=== PATIENT | female | born 1960 | race Caucasian/White ===

== ENCOUNTER 2019-01-28 15:44 | Emergency (ER) | payer BC, SELFPAY ==
[2019-01-28 15:45] VITALS: BP 141/104; PULSE 89; RESP 16; TEMP 36.9; O2SAT 95; BMI 41.5
--- NOTE | 2019-01-28 16:24 | ED.VIS.GEN ---
History of Present Illness Chief Complaint: General Illness Informant: Patient Onset: - 06-20 Context: Gradual Onset Timing: Continuous Quality: chills all over off and on Location: bifrontal headache x several days Current Severity: Moderate Maximum Severity: Moderate Worsened by: light Relieved by: nothing Associated Symptoms: fever to 102 yesterday. abscesses c/w her hidradenitis, worse in R axilla. Narrative: Patient has hidradenitis suppurativa and states that she constantly has an abscess somewhere on her body. Recently she feels she has been experiencing a flareup with sores under both breasts, both groins, but the worst one is in her right axilla. All of them have drained and either are improving or have remained very small, except the right axilla, which has drained purulent discharge about 2 teaspoons yesterday, but still larger than normal and painful. She started having fevers yesterday without any other new symptoms other than a headache. She states she feels achy and stiff all over including her neck but not worse there than any other area. She denies any confusion, neurologic deficits, vision changes, but does have photophobia. The headache was gradual in onset is bifrontal, she denies any recent head injury. - Past Medical History (1) Hidradenitis suppurativa Status: Chronic (2) Depression Status: Chronic Past Medical History - Allergies and Home Meds Allergies/Adverse Reactions: Allergies codeine Adverse Reaction (Verified 01/28/19 15:45) Other Primary Care Physician: Regina Silver NP-C [Primary Care Provider] - 3-5 Days if not improving Lives: Spouse/ Significant Other Smoking Status: Current every day smoker Review of Systems General: Reports: Chills, Fever, Malaise. Denies: Sweats Eyes: Denies: Visual changes - bilaterally, Diplopia ENT: Denies: Rhinorrhea, Sore throat Cardiovascular: Denies: Chest pain, Palpitations Respiratory: Denies: Dyspnea, Cough, Dyspnea on exertion Gastrointestinal: Denies: Abdominal pain, Nausea, Vomiting, Diarrhea, Melena, Hematochezia Genitourinary: Denies: Dysuria, Hematuria, Frequency Musculoskeletal: Reports: Neck pain, Extremity Pain - Axilla. Denies: Back pain Skin: Reports: Abscess. Denies: Rash Neurological: Reports: Headache. Denies: Weakness, Numbness Physical Exam Vital Signs/Narrative: Vital Signs Temp Pulse Resp BP Pulse Ox 01/28/19 15:45 98.5 F 89 16 141/104 H 95 Inital Vital Signs reviewed: Yes General: Well nourished, Well developed, Obese, No Acute Distress Head: Normocephalic, Atraumatic Eyes: Perrl, EOMI ENT: Moist mucous membranes, No rhinorrhea Neck: Supple, Nontender, No lymphadenopathy, No JVD, - - No meningismus. Full range of motion without any apparent difficulty, including chin to chest. Cardiovascular: Regular rate, Regular rhythm, No murmurs. Negative for: Tachycardia Respiratory: No distress, CTA bilaterally, Chest nontender Abdomen: Soft, Nontender, Nondistended, Normal bowel sounds Back: Nontender, Normal Inspection Extremities: No edema, Tenderness - Right axillary abscess, capsule feels to be about 3 cm in diameter with mild erythema overlying, no expressible discharge. Skin: Normal color, No rash, No Trauma, - - Several tender swollen areas, one is on her right upper abdominal wall that is barely present without any erythema. Another is open, nondistended without any current discharge or surrounding erythema, left inframammary. See above for right axillary findings. Neurological: Alert, Oriented x3, Cranial nerves II-XII grossly intact, Normal Strength, Normal Sensation, Normal Gait Psychological: Normal affect, Normal Mood Diagnostic/Tx/Re-eval Laboratory Tests 01/28/19 01/28/19 01/28/19 Range/Units 16:37 16:35 16:35 WBC 6.6 (4.4-11.0) K/mm3 RBC 4.28 (4.2-5.4) M/mm3 Hgb 13.0 (12.0-15.0) g/dL Hct 39.7 (37-47) % MCV 92.8 (81-99) fL MCH 30.4 (27.0-32.0) pg MCHC 32.7 (32-36) g/dL RDW Std Deviation 48.0 H (35.1-43.9) fl RDW Coeff of Jakub 14.1 (11.6-14.6) % Plt Count 213 (150-450) K/mm3 MPV 9.8 (6.2-12.0) fl Immature Gran % (Auto) 0.300 (0.0-0.9) % Neut % (Auto) 58.9 (47-70) % Lymph % (Auto) 25.1 (19-41) % [place] % (Auto) 12.5 H (0-10) % Eos % (Auto) 2.6 (0-5) % Baso % (Auto) 0.6 (0-1) % Absolute Neuts (auto) 3.9 (2.0-7.7) X10^3/uL Absolute Lymphs (auto) 1.66 (0.83-4.51) X10^3/uL Nucleated RBC % 0 (0-5) % Sodium 143 (136-145) mmol/L Potassium 3.8 (3.5-5.1) mmol/L Chloride 109 H (98-107) mmol/L Carbon Dioxide 29.0 (21.0-32.0) mmol/L Anion Gap 5 (5-15) BUN 9 (7-18) mg/dL Creatinine 0.94 (0.55-1.02) mg/dL Estim Creat Clear Calc 58.70 ml/min Est GFR (MDRD) Af Amer 78 (>60) mL/min Est GFR (MDRD) Non-Af 65 (>60) mL/min BUN/Creatinine Ratio 9.5 L (10-20) RATIO Glucose 97 (74-106) mg/dL Lactic Acid 1.1 (0.4-1.9) mmol/L Calcium 8.7 (8.5-10.1) mg/dL Total Bilirubin 0.40 (0.20-1.00) mg/dL AST 24 (15-37) U/L ALT 29 (13-56) U/L Alkaline Phosphatase 80 (45-117) U/L Total Protein 7.5 (6.4-8.2) g/dL Albumin 3.6 (3.2-5.0) g/dL Globulin 3.9 (2.2-4.2) g/dL Albumin/Globulin Ratio 0.9 (0.9-2.4) RATIO - Medical Decision Making Incision and drainage did not yield purulent material, according to the patient that is because she already squeezed everything out but I did deloculated the cavity and irrigated, dressed it with bacitracin, and we lam blood cultures/labs. She has no leukocytosis and her labs are very normal. Given her symptoms, I did give her an empiric dose of vancomycin 15 mg/kg IV, and will send her home on Bactrim. After Toradol her headache is improved as is her photophobia. She does not examine like meningitis and I do not think she needs an LP at this time. We did discuss this and she is in agreement. Certainly her fever could have been from a viral syndrome, which are very prevalent in the area at this time, anecdotally. Since she is well-appearing I do not think she needs to be admitted for IV antibiotics at this time. Discussed reasons to return with the patient and she is comfortable with that plan. Procedures Procedure(s): Simple incision and drainage right axilla abscess. Prepped with isopropanol, locally anesthetized with 2 cc plain 1% lidocaine, followed by central incision with a #11 blade. No purulent discharge was expressible, some minor bleeding occurred. I probed and deloculated with hemostats, and irrigated the cavity with sterile saline, patient tolerated well without complication. ED Disposition - Plan for ED Patient: Disposition: Home or Assisted Living Diagnosis: Hidradenitis suppurativa, Cutaneous abscess of right axilla, Fever Instructions: ABSCESS, Incision and Drainage Prescriptions: Sulfamethoxazole/Trimethoprim [Bactrim Ds Tablet] 1 ea PO BID #20 tab Prescription Printed Referrals: Regina Silver, MICROBIOLOGY TECHNOLOGIST-C [Primary Care Provider] - 3-5 Days if not improving
[2019-01-28] MEDS: Ketorolac 15 MG/ML Vial IV (16:43)
[2019-01-28 16:48] VITALS: BP 138/88; PULSE 74; RESP 19; TEMP 37.2; O2SAT 95
[2019-01-28 16:53] LABS: Absolute Lymphocyte Count 1.66 X10^3/uL (0.83-4.51); Absolute Neutrophil Count 3.9 X10^3/uL (2.0-7.7); Basophil# 0.04 X10^3/uL; Basophil% 0.6 % (0-1); Eosinophil# 0.17 X10^3/uL; Eosinophils% 2.6 % (0-5); Hematocrit 39.7 % (37-47); Lymphocyte # 1.66 X10^3/ul (4.0); Lymphocyte % 25.1 % (19-41); Mean Corp Hgb Conc 32.7 g/dL (32-36); Mean Corpuscular Hgb 30.4 pg (27.0-32.0); Mean Corpuscular Volume 92.8 fL (81-99); Mean Platelet Vol. 9.8 fl (6.2-12.0); Monocyte# 0.83 X10^3/uL; Monocyte% 12.5 % (0-10); NRBC Flagged by Analyzer 0 % (0-5); Neutrophil % 58.9 % (47-70); Platelet Count 213 K/mm3 (150-450); RBC Distribution Width CV 14.1 % (11.6-14.6); Red Blood Count 4.28 M/mm3 (4.2-5.4); White Blood Count 6.6 K/mm3 (4.4-11.0)
[2019-01-28 17:19] LABS: ALB/GLOB Ratio 0.9 RATIO (0.9-2.4); AST(SGOT) 24 U/L (15-37); Alanine Aminotransfer ALT/SGPT 29 U/L (13-56); Albumin, Serum 3.6 g/dL (3.2-5.0); Alkaline Phosphatase 80 U/L (45-117); Anion Gap 5 (5-15); BUN 9 mg/dL (7-18); BUN/Creat Ratio 9.5 RATIO (10-20); Calcium,Total 8.7 mg/dL (8.5-10.1); Chloride 109 mmol/L (98-107); Creatinine, Serum 0.94 mg/dL (0.55-1.02); EST Glomerular Filtration Rate 65 mL/min (>60); Est Glom Filt Rate - Afr Amer 78 mL/min (>60); Globulin 3.9 g/dL (2.2-4.2); Glucose 97 mg/dL (74-106); Potassium 3.8 mmol/L (3.5-5.1); Protein, Total 7.5 g/dL (6.4-8.2); Sodium Level 143 mmol/L (136-145)
[2019-01-28 17:20] LABS: Lactic Acid 1.1 mmol/L (0.4-1.9)
[2019-01-28 19:30] VITALS: PULSE 78; RESP 18; O2SAT 98
== END 2019-01-28 19:32 | disposition home or self-care (01) ==
PROVIDERS: Emergency Provider Emergency Medicine; Family Provider Nurse Practitioner Family; PCP Nurse Practitioner Family
DX: L02.411 Cutaneous abscess of right axilla (principal); L73.2 Hidradenitis suppurativa; R51 Headache; H53.149 Visual discomfort, unspecified; R50.9 Fever, unspecified; E66.9 Obesity, unspecified; F32.9 Major depressive disorder, single episode, unspecified; Z79.899 Other long term (current) drug therapy; F17.200 Nicotine dependence, unspecified, uncomplicated
CPT/HCPCS: 10060; 36415; 80053; 83605; 85025; 87040; 87086; 87088; 96365; 96366; 96375; 99284; J7040; A4216

== ENCOUNTER → 2019-10-17 14:19 | Outpatient (CLI) | payer BC, SELFPAY ==
[2019-10-17 15:11] LABS: Uric Acid 5.2 mg/dL (2.6-6.0)
== END ==
PROVIDERS: Referring Provider Nurse Practitioner Family; Visit Provider Nurse Practitioner Family
DX: M79.674 Pain in right toe(s) (principal)
CPT/HCPCS: 36415; 84550

== ENCOUNTER 2020-07-09 14:06 | Emergency (ER) | payer BC, SELFPAY ==
[2020-07-09 14:07] VITALS: BP 164/66; PULSE 80; RESP 16; TEMP 37.1; O2SAT 98; BMI 45.0
--- NOTE | 2020-07-09 14:16 | EDS_ITS ---
HPI History of Present Illness Chief Complaint: Lower Extremity Injury Detail of Chief Complaint: Fall with injury to left knee Informant: patient Narrative Narrative: Patient presents to the emergency department with an injury to her left knee. Patient presents via EMS. Patient states that she was on her deck trying to remove some cushions before the rain came and she caught her shoe on a broken piece of decking causing her to fall directly onto her left knee. Patient denies any other injuries. She was able to get her hands out in front of her face before she had the table with her face and head. Patient unable to bear weight afterwards. [facility] Medical History (Updated 07/09/20 @ 14:[address] Mercedes Wheatley, DO) [place] disease GERD (gastroesophageal reflux disease) Hyperlipemia Hypertension Home Medications albuterol sulfate 2 inhaler INHALATION PRN PRN 04/04/16 [History Last Taken Unknown] citalopram 20 mg PO DAILY 04/04/16 [History Last Taken Unknown] lisinopril 20 mg PO DAILY 01/28/19 [History Last Taken Unknown] omeprazole 20 mg PO DAILY 01/28/19 [History Last Taken Unknown] pravastatin 20 mg PO DAILY 01/28/19 [History Last Taken Unknown] sulfamethoxazole-trimethoprim 1 ea PO BID #20 tab 01/28/19 [Rx Last Taken Unknown] allopurinol 50 mg PO DAILY 07/09/20 [History Last Taken Unknown] hydrocodone-acetaminophen 1 tab PO Q4H PRN PRN 2 Days #10 tablet 07/09/20 [Rx Last Taken Unknown] Allergy/AdvReac Type Severity Reaction Status Date / Time codeine AdvReac Other Verified 07/09/20 14:10 Surgical History (Updated 07/09/20 @ 14:11 by Rossy Dahl) Hx of appendectomy Hx of hysterectomy Social History (System 01/02/20 @ 10:22 by Jag Duggan) Smoking Status: Current every day smoker tobacco type: cigarettes ROS ROS ED Constitutional Constitutional ED: Reports systems reviewed and no addt'l complaints, except as documented; Denies body ache(s), change in weight or chills Eyes Eyes: Denies acute decrease in peripheral vision, change in vision, double vision or loss of vision ENT ENT ED: Reports none; Denies ear pain, lip swelling, loss taste/smell, neck pain, otalgia or sore throat Cardiovascular Cardiovascular: Reports none; Denies abdominal pain, chest pain with activity, leg edema, lightheadedness, palpitations, rapid heart rate or syncope Respiratory/Chest Respiratory/Chest: Reports none; Denies change in mental status, dry cough, dyspnea, hemoptysis, shortness of breath at rest or shortness of breath with exertion Gastrointestinal Gastrointestinal: Reports none; Denies abdominal pain, change in stool character, diarrhea, hematemesis, hematochezia, melena, rectal bleeding or vomiting Genitourinary Genitourinary ED: Reports none; Denies abdominal discomfort, anuria, dysuria, genital pain or polyuria Musculoskeletal Musculoskeletal: Reports none and other Details: Injury to left knee ; Denies arthralgias, back pain, difficulty walking, extremity pain, muscle weakness or myalgias Integumentary Reports none; Denies abscess or rash Neurologic Neurologic: Reports none; Denies abnormal gait, confusion, focal weakness, frequent falls, headache(s), loss of vision, numbness, paresthesias, radicular pain, vertigo or weakness Psychiatric Psychiatric: Reports systems reviewed and no addt'l complaints, except as documented and none; Denies behavioral changes, confusion, difficulty concentrating, hallucinations, suicidal ideation, tactile hallucinations or visual hallucinations Endocrine Endocrinology: Denies none, cold intolerance, excessive sweating, fatigue or heat intolerance Hematologic/Lymphatic Hematologic/Lymphatic: Reports none; Denies anemia, easy bleeding or easy bruising Allergic/Immunologic Allergic/Immunologic ED: Denies as per HPI, none, lip swelling, mouth swelling, throat swelling, tongue swelling or hives EXAM Physical Exam Const Vital Signs: 07/09/20 14:07 Temperature 98.8 F Temperature Source Oral Pulse Rate 80 Respiratory Rate 16 Blood Pressure 164/66 H Blood Pressure Mean 98 Pulse Ox 98 Oxygen Delivery Method Room Air Positive well nourished and well developed General Appearance ED: well developed and NAD HEENT Reports TM's clear and moist mucous membranes normocephalic and atraumatic; Negative for trauma or tenderness Tympanic Membrane ED: Yes TM's clear Eyes PERRL and EOMs intact bilaterally General Eye ED: Negative for pale conjunctiva or scleral icterus Neck no lymphadenopathy, supple and no JVD General: Negative for tenderness Chest Wall inspection of chest normal and palpation of chest normal Chest: Negative for tenderness Resp normal respiratory effort and clear to auscultation bilaterally Effort and Inspection: Negative for respiratory distress or pain with movement Auscultation: Negative for rhonchi, wheezes or diminished lung sounds Cardio regular rate, regular rhythm, S1 normal heart sound, S2 normal heart sound and no murmurs Peripheral Pulses: pulses 2+ throughout GI normal to inspection, nondistended, normoactive bowel sounds, soft to palpation, non-tender, non-distended and no masses Back/Spine no CVA tenderness and no thoracic nor lumbar tenderness Extremity Extremity Narrative: Left knee-patient has diffuse tenderness about the patella and medial lateral joint line. She does not want to move the knee in flexion extension although she is able to slightly flex. She was able to lift the leg up off the inflatable splint while we removed it. She does not allow for ligamentous exam. No broken skin noted. She does have soft tissue swelling noted about the patella. She is neurovascular intact distally. Patient has normal pulses dorsal pedal and posterior tibial as well as popliteal. General Extremety ED: Yes edema General Extremity: edema Neuro oriented x3, CN's II-XII intact bilaterally, no sensory deficits noted and gait normal Sensorium / Orientation: awake, alert, oriented to person, oriented to place and oriented to time Motor Exam: strength 5/5 throughout and strength abnormal Psych mental status grossly normal Skin no rashes or lesions noted and no wounds MDM MDM MDM Narrative Medical decision making narrative: Patient will be given crutches and a knee immobilizer. Patient advised to follow-up with primary care physician in 5 to 7 days. She is given a prescription for Inglis for pain. Radiography Diagnostic Testing: Radiology Impression Knee X-Ray 07/09/20 14:31 IMPRESSION: Prepatellar soft tissue swelling. Electronically Signed: Brooks Montez MD at 14:48 EDT , Service support , 4 views x-rays of the left knee obtained interpreted by myself as no acute fractures and only some mild soft tissue swelling anterior to patella. Radiology was in agreement. Discharge Plan Triage Chief Complaint: Lower Extremity Injury ED Provider: Mercedes Wheatley Dx/Rx/DC Orders Clinical Impression: Contusion of knee, left Instructions: ED Contusion, Lower Extremity, ED Knee Sprain Prescriptions: New hydrocodone-acetaminophen [hydrocodone-acetaminophen] 1 TABLET tablet 1 tab PO Q4H PRN PRN (Reason: Pain) 2 Days Qty: 10 RF: 0 No Action albuterol sulfate 2.5 MG/3 ML solution for nebulization 2 inhaler inhalation PRN PRN (Reason: Sob &/Or Wheezing) RF: 0 citalopram 40 MG tablet 20 mg PO DAILY RF: 0 lisinopril 20 tablet 20 mg PO DAILY RF: 0 omeprazole 20 capsule,delayed release(DR/EC) 20 mg PO DAILY RF: 0 pravastatin 20 tablet 20 mg PO DAILY RF: 0 sulfamethoxazole-trimethoprim 1 EACH tablet 1 ea PO BID Qty: 20 RF: 0 allopurinol 100 mg Tablet 50 mg PO DAILY RF: 0 Primary Care Provider: [facility] Jenny Lackey Referrals: [facility] Jenny Lackey [Primary Care Provider] - 5-7 Days Disposition Disposition: Home, self care
--- NOTE | 2020-07-09 14:31 | RAD_ITS ---
STUDY: X-RAY - LEFT KNEE REASON FOR EXAM: Female, 60 years old. Knee injury TECHNIQUE: 4 view(s) of the knee. COMPARISON: None. FINDINGS: Normal visualized distal femur. Normal visualized proximal tibia and fibula. Normal proximal tibiofibular articulation. Normal medial femorotibial compartment. Normal lateral femorotibial compartment. Normal patellofemoral articulation. Prepatellar soft tissue swelling. RAD/Knee 4 or More Views IMPRESSION: Prepatellar soft tissue swelling. Electronically Signed: Brooks Montez MD at 14:48 EDT , Service support ,
[2020-07-09] MEDS: HYDROcodone Bitartrate/Apap 5/325 Tablet PO (15:08)
== END 2020-07-09 15:23 | disposition home or self-care (01) ==
PROVIDERS: Emergency Provider Emergency Medicine
DX: S80.02XA Contusion of left knee, initial encounter (principal); W19.XXXA Unspecified fall, initial encounter; Y93.9 Activity, unspecified; Y92.9 Unspecified place or not applicable; I10 Essential (primary) hypertension; E78.5 Hyperlipidemia, unspecified; K21.9 Gastro-esophageal reflux disease without esophagitis; E88.89 Other specified metabolic disorders; Z79.899 Other long term (current) drug therapy; F17.210 Nicotine dependence, cigarettes, uncomplicated
CPT/HCPCS: 73564; 99285

== ENCOUNTER → 2020-07-17 07:18 | Outpatient (CLI) | payer BC, SELFPAY ==
[2020-07-09 14:07] VITALS: BMI 45.0
--- NOTE | 2020-07-17 16:37 | BI_ITS ---
MAMMOGRAPHY - BILATERAL SCREENING REASON FOR EXAM: Female, 60 years old. Routine annual screening examination. PERTINENT HISTORY: Non-contributory. TECHNIQUE: Digital bilateral breast lena (3D mammographic acquisition) in the CC and MLO projections. 2-D mediolateral oblique (MLO) and craniocaudad (CC) views of both breasts were obtained. CAD: Full Field Digital Mammography with Computer Added Detection was performed. COMPARISON: No comparison mammograms available at this time. If any prior films become available, an addendum to this report can be generated. FINDINGS: Breast Composition: There are scattered areas of fibroglandular density. There are no dominant masses or suspicious calcifications. There is a 1.1 cm x 0.5 cm nodular density in the upper central portion of the breast at the 12 o''clock position on the left side. A central fatty notch is visible suggestive of a lymph node. Correlation with ultrasound is recommended for further evaluation. No other significant abnormalities are identified. BI/SCRN MAMM (CAD)W/LENA BILAT IMPRESSION: 1.1 cm x 0.5 cm nodular density in the left breast as described. Correlation with ultrasound is recommended. ASSESSMENT CATEGORY: BIRADS Category 0: Incomplete. Need additional imaging evaluation. A letter regarding these results will be sent to the patient by the facility within 30 days. Approximately 10% of breast cancers are not detected by mammography. A normal mammogram should not delay biopsy of a clinically suspicious abnormality. [id number] Electronically Signed: Brooks Montez MD at 8:31 EDT , Service support ,
== END ==
PROVIDERS: Referring Provider Nurse Practitioner Adult Health; Visit Provider Nurse Practitioner Adult Health
DX: Z12.31 Encounter for screening mammogram for malignant neoplasm of breast (principal)
CPT/HCPCS: 77063; 77067

== ENCOUNTER → 2020-07-21 10:33 | Outpatient (CLI) | payer BC, SELFPAY ==
[2020-07-09 14:07] VITALS: BMI 45.0
--- NOTE | 2020-07-21 10:36 | US_ITS ---
STUDY: ULTRASOUND BREAST - LEFT REASON FOR EXAM: Female, 60 years old. Abnormal screening mammogram. TECHNIQUE: Axial and longitudinal images of the LEFT breast were performed with a high resolution ultrasound transducer. # OF IMAGES: 27 COMPARISON: Comparison is made with prior examination dated 07/17/2020. FINDINGS: LEFT Breast: The mammographic abnormality corresponds to a 1 cm x 0.9 cm x 0.6 cm hypoechoic nodule at the 11 o''clock position of the breast at 10 cm from nipple. This is not a typical lymph node. A biopsy is recommended for further evaluation. US/Breast Limited Unilateral IMPRESSION: The mammographic abnormality corresponds to a 1 cm x 0.9 cm x 0.6 cm hypoechoic slightly lobular nodule at 11 o''clock position of the breast at 10 cm from the nipple. A biopsy is recommended. ASSESSMENT CATEGORY: BIRADS Category 4: Suspicious - Biopsy Should Be Considered. A letter regarding these results will be sent to the patient by the facility within 30 days. Electronically Signed: Brooks Montez MD at 14:21 EDT , Service support ,
== END ==
LOC: OPUS 10:34
PROVIDERS: Referring Provider Nurse Practitioner Adult Health; Visit Provider Nurse Practitioner Adult Health
DX: R92.1 Mammographic calcification found on diagnostic imaging of breast (principal)
CPT/HCPCS: 76642

== ENCOUNTER → 2020-07-25 12:28 | Outpatient (CLI) | payer BC, SELFPAY ==
[2020-07-23 13:38] VITALS: BMI 45.0
--- NOTE | 2020-07-25 | BRBX_PTH ---
PATIENT: DIMA NICE LOC: OPUS U#:[id number] AGE/SX: 64/F ROOM: RE07/25/[address]: Dr. 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 Focal microcalcifications. Negative for atypia or malignancy. See comment. IRIS:ish 07/29/2020 COMMENT Correlation with clinical, radiologic findings and appropriate follow up are necessary. Case has been reviewed in consultation with Dr. Hilario who concurs with the above diagnosis. IDC:AM MICROSCOPIC DESCRIPTION Slides are reviewed. GROSS DESCRIPTION Received in fixative is one container labeled with the patient name and designated left breast. The specimen consists of multiple elongated fragments of dickey-yellow fibroadipose tissue that in aggregate measure 2.5 x 1 x 0.1 cm. The entire specimen is submitted in one cassette. / IRIS:ish 07/28/20 TC:1 CPT: 27311
--- NOTE | 2020-07-25 12:29 | US_ITS ---
STUDY: ULTRASOUND BREAST - LEFT REASON FOR EXAM: Female, 60 years old. Left breast mass. TECHNIQUE: Axial and longitudinal images of the LEFT breast were performed with a high resolution ultrasound transducer. # OF IMAGES: 19 COMPARISON: Comparison is made with prior sonogram dated 07/21/2020. FINDINGS: LEFT Breast: Under direct sonographic guidance, the surgeon performed multiple core biopsies of the 9 mm x 8 mm x 6 mm hypoechoic solid nodule at the 12 o''clock addition of the breast at 10 cm from the nipple. US/US Breast Biopsy 1st Lesion IMPRESSION: Sonographic guidance for core biopsies of a nodule at the 12 o''clock position of the breast at 10 size of the nipple. ASSESSMENT CATEGORY: BIRADS Category 2: Benign. A letter regarding these results will be sent to the patient by the facility within 30 days. Electronically Signed: Brooks Montez MD at 14:02 EDT , Service support ,
--- NOTE | 2020-07-25 13:27 | OP.PCM_ITS ---
Report of Operation Date of Procedure: 07/25/20 Pre-Operative Diagnosis: Left breast mass 12:00 10 cm from the nipple Post-Operative Diagnosis: Same Surgery/Procedure Performed:: Ultrasound-guided left breast biopsy Surgeon: Yesenia Myers Type of Anesthesia: Local Specimen's removed: Left breast mass 12:00 10 cm from the nipple Estimated Blood Loss (mL): Minimal Description of Procedure: Procedure: left ultrasound-guided core biopsy Indications: 60 year-old female with hypoechoic nodule at 12:00 in the left breast 10 centimeters from the nipple. Risk benefits were discussed the patient and she elected to proceed with ultrasound guided core biopsy with clip placement Description of procedure: Patient was brought into the ultrasound room in the left breast was marked. A timeout was completed verifying correct patient, procedure, site, specially, prior to beginning procedure. The left breast was prepped and draped in usual sterile fashion and using local anesthesia was obtained with 1% lidocaine with epi. The lesion was located with the ultrasound. Small incision was made with 11 blade to introduced the mammotome t hrough the skin. Under ultrasound guidance multiple core samples were obtained using then 13-gauge mammotome and sent in formalin for pathology. The mammotome mammostar clip was then deployed into the biopsy cavity under ultrasound guidance and a picture was taken. Upon completion procedure hemostasis was obtained and a Steri-Strip and OpSite were placed. Patient was then taken to the mammography suite for clip verification. The clip was verified. The patient tolerated the procedure well and was discharged from the breast imaging department good condition. complications: none Complications none
== END ==
LOC: OPUS 12:29
PROVIDERS: Referring Provider Surgery; Visit Provider Surgery
DX: N63.20 Unspecified lump in the left breast, unspecified quadrant (principal)
CPT/HCPCS: 19083; 88305

== ENCOUNTER → 2020-08-19 11:52 | Outpatient (CLI) | payer BC, SELFPAY ==
[2020-07-23 13:38] VITALS: BMI 45.0
[2020-08-19 13:30] LABS: Absolute Lymphocyte Count 1.87 X10^3/uL (0.83-4.51); Absolute Neutrophil Count 2.6 X10^3/uL (2.0-7.7); Basophil# 0.03 X10^3/uL; Basophil% 0.6 % (0-1); Eosinophils% 3.9 % (0-5); Hematocrit 39.6 % (37-47); Hemoglobin 12.6 g/dL (12.0-15.0); Lymphocyte # 1.87 X10^3/ul (0.83-4.51); Lymphocyte % 36.4 % (19-41); Mean Corp Hgb Conc 31.8 g/dL (32-36); Mean Corpuscular Hgb 31.3 pg (27.0-32.0); Mean Corpuscular Volume 98.5 fL (81-99); Mean Platelet Vol. 10.1 fl (6.2-12.0); Monocyte# 0.38 X10^3/uL; Monocyte% 7.4 % (0-10); NRBC Flagged by Analyzer 0 % (0-5); Neutrophil # 2.64 X10^3/uL (2.7-7.7); Neutrophil % 51.3 % (47-70); POSITIVE MORPHOLOGY YES; Platelet Count 210 K/mm3 (150-450); RBC Distribution Width CV 13.7 % (11.6-14.6); RBC Distribution Width SD 50.2 fl (35.1-43.9); Red Blood Count 4.02 M/mm3 (4.2-5.4); White Blood Count 5.1 K/mm3 (4.4-11.0)
[2020-08-19 13:48] LABS: Differential Indicated SCAN CRITERIA MET
[2020-08-19 14:09] LABS: ALB/GLOB Ratio 0.9 RATIO (0.9-2.4); AST(SGOT) 18 U/L (15-37); Alanine Aminotransfer ALT/SGPT 21 U/L (13-56); Albumin, Serum 3.3 g/dL (3.2-5.0); Alkaline Phosphatase 66 U/L (45-117); Anion Gap 3 (5-15); BUN 20 mg/dL (7-18); Calcium,Total 8.4 mg/dL (8.5-10.1); Chloride 109 mmol/L (98-107); Cholesterol 201 mg/dL (200); Creatinine, Serum 0.74 mg/dL (0.55-1.02); EST Glomerular Filtration Rate 85 mL/min (>60); Est Glom Filt Rate - Afr Amer 103 mL/min (>60); Globulin 3.6 g/dL (2.2-4.2); Glucose 87 mg/dL (74-106); High Density Lipoprotein 63 mg/dL; Potassium 4.1 mmol/L (3.5-5.1); Protein, Total 6.9 g/dL (6.4-8.2); Sodium Level 140 mmol/L (136-145); Thyroid Stim Hormone (TSH) 1.16 uIU/mL (0.358-3.74); Triglycerides 97 mg/dL; Very Low Density Lipoprotein 19 mg/dL (5-40)
[2020-08-19 14:31] LABS: Differential Comment SCANNED
== END ==
PROVIDERS: Referring Provider Nurse Practitioner Adult Health; Visit Provider Nurse Practitioner Adult Health
DX: L73.2 Hidradenitis suppurativa (principal); Z79.899 Other long term (current) drug therapy; I10 Essential (primary) hypertension; R19.7 Diarrhea, unspecified
CPT/HCPCS: 36415; 80053; 80061; 84443; 84550; 85025; 86480; 87177; 87209; 87506

== ENCOUNTER 2021-04-15 16:33 | Outpatient (CLI) | payer BC, SELFPAY ==
[2021-04-15 17:33] LABS: Absolute Lymphocyte Count 2.06 X10^3/uL (0.83-4.51); Absolute Neutrophil Count 3.1 X10^3/uL (2.0-7.7); Basophil# 0.04 X10^3/uL; Basophil% 0.7 % (0-1); Eosinophil# 0.24 X10^3/uL; Hemoglobin 13.1 g/dL (12.0-15.0); Lymphocyte # 2.06 X10^3/ul (0.83-4.51); Lymphocyte % 34.4 % (19-41); Mean Corp Hgb Conc 33.6 g/dL (32-36); Mean Corpuscular Hgb 31.8 pg (27.0-32.0); Mean Corpuscular Volume 94.7 fL (81-99); Mean Platelet Vol. 9.8 fl (6.2-12.0); Monocyte# 0.51 X10^3/uL; Monocyte% 8.5 % (0-10); NRBC Flagged by Analyzer 0 % (0-5); Neutrophil # 3.12 X10^3/uL (2.7-7.7); Neutrophil % 52.1 % (47-70); Platelet Count 236 K/mm3 (150-450); RBC Distribution Width CV 13.1 % (11.6-14.6); RBC Distribution Width SD 44.7 fl (35.1-43.9); Red Blood Count 4.12 M/mm3 (4.2-5.4)
[2021-04-15 18:10] LABS: ALB/GLOB Ratio 0.8 RATIO (0.9-2.4); AST(SGOT) 19 U/L (15-37); Alanine Aminotransfer ALT/SGPT 25 U/L (13-56); Albumin, Serum 3.2 g/dL (3.2-5.0); Alkaline Phosphatase 84 U/L (45-117); Anion Gap 5 (5-15); BUN 19 mg/dL (7-18); BUN/Creat Ratio 23.4 RATIO (10-20); Calcium,Total 8.8 mg/dL (8.5-10.1); Chloride 104 mmol/L (98-107); Creatinine, Serum 0.81 mg/dL (0.55-1.02); EST Glomerular Filtration Rate 76 mL/min (>60); Est Glom Filt Rate - Afr Amer 92 mL/min (>60); Globulin 4.1 g/dL (2.2-4.2); Glucose 106 mg/dL (74-106); Potassium 3.9 mmol/L (3.5-5.1); Protein, Total 7.3 g/dL (6.4-8.2); Sodium Level 137 mmol/L (136-145)
[2021-04-17 21:07] LABS: QNTFERON TB Mitogen Value > 10.00 IU/mL (.); QNTFERON TB Nil Value 0.03 IU/mL (.); QNTFERON TB1+ Ag Value 0.06 IU/mL (.); QNTFERON TB2+ Ag Value 0.05 IU/mL (.)
[2021-04-17 21:33] LABS: QNTIFERON TB Positive Criteria Negative (Negative)
== END 2021-04-15 23:59 | disposition home or self-care (01) ==
PROVIDERS: Visit Provider Nurse Practitioner
DX: L73.2 Hidradenitis suppurativa (principal)
CPT/HCPCS: 36415; 80053; 85025; 86480

== ENCOUNTER 2021-12-21 12:34 | Emergency (ER) | payer BC, SELFPAY ==
[2021-12-21 12:36] VITALS: BP 163/87; PULSE 80; RESP 18; TEMP 36.6; O2SAT 98; BMI 48.0
--- NOTE | 2021-12-21 12:58 | EKG12_ITS ---
Test Reason : PAIN Blood Pressure : / mmHG Vent. Rate : 072 BPM Atrial Rate : 072 BPM P-R Int : 132 ms QRS Dur : 070 ms QT Int : 422 ms P-R-T Axes : 032 031 031 degrees QTc Int : 462 ms Normal sinus rhythm Low voltage QRS Borderline ECG Confirmed by AYDE GUZMAN, CLINTON ([id number]), brands editor FLORENCE DEAL ([id number]) on 12/23/2021 11:07:26 AM Referred By: Confirmed By:CLINTON MESSER MD
--- NOTE | 2021-12-21 12:58 | CT_ITS ---
STUDY: CTA HEAD AND NECK WITH CONTRAST REASON FOR EXAM: Female, 61 years old. Transient quadriplegia. 2 week history of weakness and headaches. RADIATION DOSAGE (If Supplied By Facility): CTDIvol = ( 38.71 ) mGy, DLP = ( 1655.07 ) mGycm TECHNIQUE: CT angiography was performed with a multi-detector CT scanner. Data acquisition was obtained from the skull base through the vertex following intravenous administration of IV 100mL [id number]-370. MIP images were reconstructed from the axial data set. Post-processing of the angiographic images was performed, with multiplanar reformation and 3D reconstruction. Individualized dose optimization techniques were used for this CT. COMPARISON: No relevant priors. FINDINGS: Normal bilateral petrous carotid arteries. Normal right cavernous carotid artery with a normal supraclinoid bifurcation. Normal left cavernous carotid artery with a normal supraclinoid bifurcation. Normal right A1 segments of the anterior cerebral artery. Normal left A1 segments of the anterior cerebral artery. Normal intact anterior communicating artery (ACOM). Normal bilateral A2 segments of the anterior cerebral arteries. Normal right M1 and M2 segments of the middle cerebral arteries, with a normal M1 bifurcation. Normal left M1 and M2 segments of the middle cerebral arteries, with a normal M1 bifurcation. Normal right posterior communicating artery (PCOM). Normal left posterior communicating artery (PCOM). Normal bilateral vertebral arteries. Normal basilar artery with a normal basilar bifurcation. The visualized bilateral superior cerebellar (SCA) arteries are normal. Normal bilateral P1, P2 and visualized P3 segments of the posterior cerebral arteries. There is no demonstrated aneurysm of the [place]. Focal encephalomalacia is seen in the right frontal parietal lobe. This has progressed as compared to prior study. Mild degree mucosal thickening of the ethmoid sinuses bilaterally. AORTIC ARCH: There is mild atherosclerotic calcific plaque formation of the aortic arch and great vessels arising from the aortic arch, without a hemodynamically significant stenosis. There is a normal origin of the brachiocephalic, left common carotid. The left subclavian artery arises from the right brachiocephalic trunk. RIGHT CAROTID ARTERIES: Normal right common carotid artery (CCA). Normal right common carotid bulb. There is mild atherosclerotic plaque formation of the origin of the right internal carotid artery with less than 50% cross sectional diameter stenosis. Normal visualized cervical portion of the right internal carotid artery. Normal origin of the right external carotid artery (ECA). LEFT CAROTID ARTERIES: Normal left common carotid artery (CCA). Normal left common carotid bulb. There is mild atherosclerotic plaque formation of the origin of the left internal carotid artery with less than 50% cross sectional diameter stenosis. Normal visualized cervical portion of the left internal carotid artery. Normal origin of the left external carotid artery (ECA). VERTEBRAL ARTERIES: Normal bilateral vertebral arteries. CT/STROKE CTA Head AND Neck W/Con IMPRESSION: Focal encephalomalacia in the left frontoparietal lobe which has progressed slightly since prior study. Minimal plaque formation at the origin of the right and left internal carotid arteries. N.B. : The above Results were Read Back by Brooks Montez MD to Dr Bishnu MD, and understanding confirmed on 12/21/2021 14:17:17 (ET). Electronically Signed: Brooks Montez MD at 14:18 EST ,
--- NOTE | 2021-12-21 13:01 | ED.VIS.STROK ---
HPI History of Present Illness Chief Complaint: Weakness Informant: patient Onset/Context/Timing Onset: Days (2 d ago) Context: Sudden Onset Timing: Intermittent (once episode) and Lasts (5 min or so) Onset: sudden while sitting at a table Current Severity: Gone Maximum Severity: Severe Worsened by: nothing Relieved by: nothing Associated Symptoms Associated Symptoms: Positive for Headache (for sev days, started prior to the above sx); Negative for Nausea, Vomiting or Chest Pain Narrative Narrative: Patient states 2 days ago she was sitting at a table and without any prodromal symptoms or warning suddenly she was unable to hold her head up, her chin fell to the table, and her extremities seemed paralyzed and she could not move them at all. She does not remember if she felt numb or not. She denies any loss of consciousness at any point time, nor lightheadedness, acute headache although she was already having a headache for couple days prior to this, nausea, vomiting, palpitations, chest symptoms. She states after 5 minutes or so it seemed to get better, she was feeling malaised but gradually was able to move everything again. This is the first visit to a healthcare provider since this episode which has not recurred. She states that her daughter is a nurse and advised her that this was very concerning so she called her doctor's office, and they referred her here to the ER emergently. Patient states she has had a headache ever since, and is felt malaised but overall well otherwise. No recent illness. She states 2 months ago her doctor wanted to increase blood pressure medication because of elevated pressures at 180 in the office, she states instead of following this advice she started by going on a diet and losing some weight, she states she has lost 10 pounds, and wanted to see if that would help her blood pressure before going on different medication for it. [facility] Medical History Abnormal mammogram Abnormal ultrasound of breast Alcohol use Anxiety Arthritis Asthma Back pain [place] disease Gastric reflux GERD (gastroesophageal reflux disease) Gout H/O hidradenitis suppurativa High cholesterol History of diverticulosis History of hiatal hernia History of IBS History of stress test Hyperlipemia Hypertension Injury of head and neck Leg cramps Open wound Smoker Wears glasses Home Medications citalopram 40 mg tablet 20 mg PO DAILY 04/04/16 [History Last Taken Unknown] lisinopril 20 mg tablet 20 mg PO DAILY 01/28/19 [History Last Taken Unknown] omeprazole 20 mg capsule,delayed release 20 mg PO DAILY 01/28/19 [History Last Taken Unknown] pravastatin 20 mg tablet 40 mg PO DAILY 01/28/19 [History Last Taken Unknown] allopurinol 100 mg tablet 150 mg PO DAILY 07/09/20 [History Last Taken Unknown] adalimumab 40 mg/0.4 mL subcutaneous pen kit (Humira(CF) Pen) 40 mg subcut WE 07/23/20 [History Last Taken Unknown] albuterol sulfate 90 mcg/actuation aerosol inhaler 1 puff inhalation Q6H PRN ASTHMA 07/23/20 [History Last Taken Unknown] cholecalciferol (vitamin D3) 1,250 mcg (50,000 unit) capsule 50,000 unit PO MO 07/23/20 [History Last Taken Unknown] meloxicam 15 mg tablet 5 mg PO BID 07/23/20 [History Last Taken Unknown] fluticasone propionate 50 mcg/actuation nasal spray,suspension 1 spray intranasal DAILY 10/30/20 [History Last Taken Unknown] zinc 100 mg tablet 100 mg PO DAILY 10/30/20 [History Last Taken Unknown] Allergy/AdvReac Type Severity Reaction Status Date / Time codeine AdvReac Other Verified 12/21/21 12:36 Family History Mother Cervical cancer Autoimmune disease Asthma Arthritis Father Heart disease Surgical History Hx of appendectomy Hx of hysterectomy Social History Smoking Status: Current every day smoker tobacco type: cigarettes alcohol intake: current alcohol intake frequency: a few times a week substance use type: does not use caffeine: Yes what type of physical activity do you participate in: none frequency: does not exercise ROS ROS ED Constitutional Constitutional ED: Denies chills or fever(s) Eyes Eyes: Denies change in vision or diplopia ENT ENT ED: Denies rhinorrhea or sore throat Cardiovascular Cardiovascular: Denies chest pain or palpitations Respiratory/Chest Respiratory/Chest: Denies cough or dyspnea Gastrointestinal Gastrointestinal: Denies abdominal pain, diarrhea, nausea or vomiting Genitourinary Genitourinary ED: Denies dysuria or hematuria Musculoskeletal Musculoskeletal: Denies back pain or neck pain Integumentary Denies abscess or rash Neurologic Neurologic: Reports as per HPI and headache(s); Denies paresthesias, seizure-like activity, seizures or weakness Psychiatric Psychiatric: Denies anxiety or suicidal thoughts EXAM Physical Exam Const Vital Signs: 12/21/21 12:36 12/21/21 13:07 12/21/21 13:17 Temperature 97.8 F Temperature Source Temporal Pulse Rate 80 Respiratory Rate 18 Respiratory Effort Normal Non-Labored Blood Pressure 163/87 H Blood Pressure Mean 112 Pulse Ox 98 97 Oxygen Delivery Method Room Air Room Air 12/21/21 14:37 12/21/21 16:20 Temperature Temperature Source Pulse Rate 70 77 Respiratory Rate 18 18 Respiratory Effort Blood Pressure 137/85 H 144/77 H Blood Pressure Mean 102 99 Pulse Ox 97 97 Oxygen Delivery Method Room Air Room Air Positive well nourished, well developed and obese General Appearance ED: well developed and NAD Nutritional Appearance: obese HEENT Reports moist mucous membranes normocephalic and atraumatic Eyes PERRL and EOMs intact bilaterally Neck full ROM and supple Resp normal respiratory effort and clear to auscultation bilaterally Cardio regular rate, regular rhythm and no murmurs GI non-tender and non-distended Auscultation: normoactive bowel sounds Palpation: soft Back/Spine no CVA tenderness General Back: other FROM Extremity normal to inspection General Extremety ED: Negative for edema, pulses abnormal or tenderness General Extremity: Negative for edema or pulses abnormal Neuro oriented x3, CN's II-XII intact bilaterally and no sensory deficits noted Sensorium / Orientation: awake and alert Motor Exam: strength 5/5 throughout Psych mental status grossly normal Skin no rashes or lesions noted and no wounds NIHSS NIHSS Initial: 1a Level of Consciousness: 0 1b LOC Questions (Score 2 if aphasic/stupor): 0 1c LOC Commands (Only score 1st attempt): 0 2 Best Gaze (If aphasic, use reflexive mvmts.): 0 3 Visual: 0 4 Facial Palsy: 0 5 Motor Arm Right (UN = amputation/fusion): 0 5 Motor Arm Left: 0 6 Motor Leg Right: 0 6 Motor Leg Left: 0 7 Limb ataxia (Only + if out of proportion): 0 8 Sensory (Aphasia/stupor=0 or 1, coma=2): 0 9 Best Language: 0 10 Dysarthria (mute, coma=2, intubated=UN): 0 11 Extinction and Inattention (only scored if +): 0 Total Score: 0 MDM MDM MDM Narrative Medical decision making narrative: Labs and EKG are unremarkable, I sent the patient for CT and CT angiography of the head and neck, results are noted below. Discussed with the stroke neurologist on-call at [facility], she recommends an MRI to further characterize this, and if the MRI shows nothing acute, she does not need to be admitted for other purposes. Patient states she has never had a stroke or a brain tumor before, so it is surprising that she would have any abnormality on imaging. For these reasons, I discussed with MRI and they had an opening so we were able to get a stat MRI without contrast of the brain. This was done, the results are below. This area of focal encephalomalacia of the left frontal parietal lobe that was seen on CT was not seen on the MRI. Age-related abnormalities were seen in addition to chronic ischemic abnormalities in the fro[place]. I discussed these latter findings with Dr. Bashir with stroke neurology at [facility], she advises close outpatient follow-up with the patient's PCP for risk factor modification including her blood pressure which I think is reasonable, in addition to taking a baby aspirin a day which the patient is not doing right now. Patient is comfortable with this overall plan will follow-up. Lab Data Attestation: I reviewed the patient's lab results. Labs: Laboratory Results - last 24 hr 12/21/21 12/21/21 12/21/21 13:08 13:08 13:08 WBC 6.6 RBC 4.26 Hgb 13.7 Hct 41.6 MCV 97.7 MCH 32.2 H MCHC 32.9 RDW Std Deviation 50.4 H RDW Coeff of Jakub 14.0 Plt Count 232 MPV 9.8 Immature Gran % (Auto) 0.300 Neut % (Auto) 56.2 Lymph % (Auto) 29.6 [place] % (Auto) 9.4 Eos % (Auto) 3.9 Baso % (Auto) 0.6 Absolute Neuts (auto) 3.7 Absolute Lymphs (auto) 1.96 Nucleated RBC % 0 PT 12.1 INR 0.9 APTT 23.0 L Sodium 139 Potassium 4.1 Chloride 105 Carbon Dioxide 27.0 Anion Gap 7 BUN 20 H Creatinine 0.92 Estim Creat Clear Calc 55.45 Est GFR (MDRD) Af Amer 80 Est GFR (MDRD) Non-Af 66 BUN/Creatinine Ratio 21.7 H Glucose 77 Calcium 8.5 Troponin I High Sens 4 Radiography Diagnostic Testing: Clinical Impression(s) from Imaging Studies Head/Neck CTA 12/21/21 12:58 IMPRESSION: Focal encephalomalacia in the left frontoparietal lobe which has progressed slightly since prior study. Minimal plaque formation at the origin of the right and left internal carotid arteries. N.B. : The above Results were Read Back by Brooks Montez MD to Dr Bishnu MD, and understanding confirmed on 12/21/2021 14:17:17 (ET). Electronically Signed: Brooks Montez MD at 14:18 EST Reading Location ID and State: [id number] / [employer] , Service support , ADDENDUM: 12/21/21 1427 IMPRESSION: Focal encephalomalacia in the left frontoparietal lobe which has progressed slightly since prior study. Minimal plaque formation at the origin of the right and left internal carotid arteries. N.B. : The above Results were Read Back by Brooks Montez MD to Dr Bishnu MD, and understanding confirmed on 12/21/2021 14:17:17 (ET). Electronically Signed: Brooks Montez MD at 14:18 EST , Chest X-Ray 12/21/21 13:55 IMPRESSION: No acute abnormality is seen. Electronically Signed: Brooks Montez MD at 14:11 EST , Brain MRI 12/21/21 15:13 IMPRESSION: Mild periventricular white matter ischemic changes without evidence for acute infarct. Chronic ischemic changes within the froylan. Electronically Signed: Gus Freitas MD at 16:26 EST , Rhythm Strip Rhythm Strip: Sinus Rhythm Rate: 72 Ectopy: None EKG Initial EKG: Attestation: I personally reviewed and interpreted this EKG as follows: Interpretation: Sinus Rhythm and No Acute Injury Pattern Stroke Documentation Questions Stroke Team Activated: No (outside of all intervention/thrombolytic windows) Discharge Plan Triage Chief Complaint: Weakness ED Provider: Jorge Goetz Dx/Rx/DC Orders Clinical Impression: Acute flaccid quadriplegia, Accelerated hypertension Instructions: Hypertension Dc Prescriptions: No Action Humira(CF) Pen 40 mg/0.4 mL pen injector kit 40 mg subcut WE albuterol sulfate 90 mcg/actuation HFA aerosol inhaler 1 puff inhalation Q6H PRN (Reason: ASTHMA) cholecalciferol (vitamin D3) 1,250 mcg (50,000 unit) capsule 50,000 unit PO MO Label Comments: TAKE 1 CAPSULE BY MOUTH ONCE A WEEK meloxicam 15 mg tablet 5 mg PO BID Label Comments: TAKE 1 2 (ONE HALF) TABLET BY MOUTH TWICE DAILY citalopram 40 MG tablet 20 mg PO DAILY lisinopril 20 tablet 20 mg PO DAILY omeprazole 20 capsule,delayed release(DR/EC) 20 mg PO DAILY pravastatin 20 tablet 40 mg PO DAILY allopurinol 100 mg Tablet 150 mg PO DAILY zinc 100 mg Tablet 100 mg PO DAILY fluticasone propionate 50 mcg/actuation spray,suspension 1 spray INTRANASAL DAILY Label Comments: USE 1 SPRAY IN EACH NOSTRIL ONCE DAILY Primary Care Provider: Casey Ling Referrals: Casey Ling MD [Primary Care Provider] - As soon as possible Activity Restrictions/Additional Instructions: Until you see your doctor take baby aspirin once daily, and follow-up regarding risk factor modification such as your blood pressure. Disposition Disposition: Home, Self Care
[2021-12-21 13:07] VITALS: O2SAT 97
[2021-12-21 13:19] LABS: Absolute Lymphocyte Count 1.96 X10^3/uL (0.83-4.51); Absolute Neutrophil Count 3.7 X10^3/uL (2.0-7.7); Basophil# 0.04 X10^3/uL; Basophil% 0.6 % (0-1); Eosinophil# 0.26 X10^3/uL; Eosinophils% 3.9 % (0-5); Hematocrit 41.6 % (37-47); Hemoglobin 13.7 g/dL (12.0-15.0); Lymphocyte # 1.96 X10^3/ul (0.83-4.51); Lymphocyte % 29.6 % (19-41); Mean Corp Hgb Conc 32.9 g/dL (32-36); Mean Corpuscular Hgb 32.2 pg (27.0-32.0); Mean Corpuscular Volume 97.7 fL (81-99); Mean Platelet Vol. 9.8 fl (6.2-12.0); Monocyte# 0.62 X10^3/uL; Monocyte% 9.4 % (0-10); NRBC Flagged by Analyzer 0 % (0-5); Neutrophil # 3.72 X10^3/uL (2.7-7.7); Neutrophil % 56.2 % (47-70); Platelet Count 232 K/mm3 (150-450); RBC Distribution Width SD 50.4 fl (35.1-43.9); Red Blood Count 4.26 M/mm3 (4.2-5.4); White Blood Count 6.6 K/mm3 (4.4-11.0)
[2021-12-21 13:26] LABS: International Normalized Ratio 0.9; Prothrombin Time (Protime)PT. 12.1 SECONDS (11.7-14.9)
[2021-12-21 13:35] LABS: Anion Gap 7 (5-15); BUN 20 mg/dL (7-18); BUN/Creat Ratio 21.7 RATIO (10-20); Calcium,Total 8.5 mg/dL (8.5-10.1); Chloride 105 mmol/L (98-107); Creatinine, Serum 0.92 mg/dL (0.55-1.02); EST Glomerular Filtration Rate 66 mL/min (>60); Est Glom Filt Rate - Afr Amer 80 mL/min (>60); Estimated Creatinine Clearance 55.45 ml/min; Glucose 77 mg/dL (74-106); Potassium 4.1 mmol/L (3.5-5.1); Sodium Level 139 mmol/L (136-145); Troponin-I HS 4 pg/mL (3.0-54.0)
--- NOTE | 2021-12-21 13:55 | RAD_ITS ---
STUDY: X-RAY CHEST REASON FOR EXAM: Female, 61 years old. Neuro deficit, acute, stroke suspected TECHNIQUE: Single AP portable view of the chest. COMPARISON: None. FINDINGS: EKG electrodes are seen. The lungs are clear and expanded. Scattered calcified granulomas. There is no demonstrated pleural abnormality. Normal size heart. Normal mediastinum and junito. Normal visualized pulmonary arteries. There is atherosclerotic tortuosity of the aortic arch and descending thoracic aorta. There are diffuse degenerative changes of the visualized thoracic spine. Normal visualized ribs, clavicles, and shoulders. There is no demonstrated abnormality of the visualized soft tissue structures of the upper abdomen. RAD/Chest 1 View IMPRESSION: No acute abnormality is seen. Electronically Signed: Brooks Montez MD at 14:11 EST ,
[2021-12-21 14:37] VITALS: BP 137/85; PULSE 70; RESP 18; O2SAT 97
--- NOTE | 2021-12-21 15:13 | MRI_ITS ---
STUDY: MRI BRAIN WITHOUT CONTRAST REASON FOR EXAM: Female, 61 years old. transient quadraplegia TECHNIQUE: Standardized multiplanar fat and water weighted pulse sequences were obtained. COMPARISON: CT of the brain 12/21/2021 FINDINGS: Normal size of the ventricles and extra-axial spaces for the patient''s age. Mild periventricular white matter ischemic change without mass effect or restricted diffusion. Normal bilateral basal ganglia. Normal thalami. There is no extra-axial fluid accumulation. Normal flow voids within the major intracranial circulation suggesting patency by spin echo criteria. Partial empty sella deformity. Normal, infundibular stalk, optic chiasm and hypothalamus. Normal tectal plate and pineal gland. Normal midbrain, and medulla. Normal cerebellum. Normal basal cisterns. Normal bilateral temporal bones. Normal bilateral internal auditory canals. No demonstrated orbital abnormality, within the constraints of a routine brain study. Mild mucosal thickening of the ethmoid air cells. Normal calvarium and skull base. Normal visualized soft tissue structures. Normal visualized upper cervical spine. MRI/Brain without Contrast IMPRESSION: Mild periventricular white matter ischemic changes without evidence for acute infarct. Chronic ischemic changes within the [place]. Electronically Signed: Gus Freitas MD at 16:26 EST ,
[2021-12-21 16:20] VITALS: BP 144/77; PULSE 77; RESP 18; O2SAT 97
[2021-12-21 17:41] VITALS: BP 156/77; RESP 18; O2SAT 99
== END 2021-12-21 17:44 | disposition home or self-care (01) ==
PROVIDERS: Emergency Provider Emergency Medicine; PCP Family Medicine; Visit Provider Emergency Medicine
DX: G82.50 Quadriplegia, unspecified (principal); I10 Essential (primary) hypertension; E78.00 Pure hypercholesterolemia, unspecified; F17.210 Nicotine dependence, cigarettes, uncomplicated; E66.9 Obesity, unspecified; K21.9 Gastro-esophageal reflux disease without esophagitis; J45.909 Unspecified asthma, uncomplicated; Z79.899 Other long term (current) drug therapy
CPT/HCPCS: 70496; 70498; 70551; 71045; 80048; 84484; 85025; 85610; 85730; 93005; 99284; Q9967; A4216

== ENCOUNTER 2022-09-01 08:02 | Emergency (ER) | payer MEDICAID, SELFPAY ==
[2022-09-01 08:03] VITALS: BP 139/90; PULSE 97; RESP 14; TEMP 36.4; O2SAT 98; BMI 45.6
--- NOTE | 2022-09-01 08:25 | ED.VIS.GI ---
HPI HPI - GI History of Present Illness Chief Complaint: Abd Pain Informant: patient Abdominal Pain/Flank Pain Onset: Month(s) Context: Gradual Onset Timing: Continuous Quality: Burning Location: Diffuse Worsened by: Food Relieved by: Nothing Nausea/Vomiting/Emesis GI Symptom: Positive for Nausea and Vomiting Quality: Positive for Nonbilious; Negative for Blood streaks, Coffee ground or Hematemesis Diarrhea/Melena/Hematochezia GI Symptom: Positive for Diarrhea; Negative for Melena or Hematochezia Associated Symptoms Associated Symptoms: Negative for Dysuria, Frequency or Hematuria Narrative Narrative: Patient presents with abdominal pain that has been constant since 06/06/2022. Patient states the pain has been gradually getting worse since that time. Patient states she was seen by her primary care physician and hot dog vendor for this. Patient states her pain has not been improving. Patient states her pain is worse after eating. Patient states it comes on approxi-1 hour after eating. Patient states her pain is burning sensation. Patient states that it is diffuse across her abdomen but worse in the upper abdomen. Patient states the pain radiates up into her chest. Patient admits to some nausea and vomiting. Patient denies any hematemesis or coffee-ground emesis. Patient admits to some diarrhea but denies any melena or hematochezia. Patient denies any dysuria, frequency, or hematuria. Patient states she has had large amount of gas. Patient states her last meal was 6 PM last night. Patient states she did have some coffee this morning. [facility] Medical History Abnormal mammogram Abnormal ultrasound of breast Alcohol use Anxiety Arthritis Asthma Back pain Erdheim-Alexander disease Gastric reflux GERD (gastroesophageal reflux disease) Gout H/O hidradenitis suppurativa High cholesterol History of diverticulosis History of hiatal hernia History of IBS History of stress test Hyperlipemia Hypertension Injury of head and neck Leg cramps Open wound Smoker Wears glasses Home Medications citalopram 40 mg tablet 20 mg PO DAILY 04/04/16 [History Last Taken Unknown] lisinopril 20 mg tablet 60 mg PO DAILY 01/28/19 [History Last Taken Unknown] omeprazole 20 mg capsule,delayed release 20 mg PO DAILY 01/28/19 [History Last Taken Unknown] pravastatin 20 mg tablet 40 mg PO DAILY 01/28/19 [History Last Taken Unknown] allopurinol 100 mg tablet 150 mg PO DAILY 07/09/20 [History Last Taken Unknown] adalimumab 40 mg/0.4 mL subcutaneous pen kit (Humira(CF) Pen) 40 mg subcut WE 07/23/20 [History Last Taken Unknown] albuterol sulfate 90 mcg/actuation aerosol inhaler 1 puff inhalation Q6H PRN ASTHMA 07/23/20 [History Last Taken Unknown] cholecalciferol (vitamin D3) 1,250 mcg (50,000 unit) capsule 50,000 unit PO MO 07/23/20 [History Last Taken Unknown] meloxicam 15 mg tablet 5 mg PO BID 07/23/20 [History Last Taken Unknown] fluticasone propionate 50 mcg/actuation nasal spray,suspension 1 spray intranasal DAILY 10/30/20 [History Last Taken Unknown] zinc 100 mg tablet 100 mg PO DAILY 10/30/20 [History Last Taken Unknown] Allergy/AdvReac Type Severity Reaction Status Date / Time codeine AdvReac Other Verified 09/01/22 08:03 Family History Mother Cervical cancer Autoimmune disease Asthma Arthritis Father Heart disease Surgical History Hx of appendectomy Hx of hysterectomy Social History Smoking Status: Current every day smoker tobacco type: cigarettes alcohol intake: current alcohol intake frequency: a few times a week substance use type: does not use caffeine: Yes what type of physical activity do you participate in: none frequency: does not exercise ROS ROS ED Constitutional Constitutional ED: Denies chills or fever(s) Eyes Eyes: Denies blurry vision or change in vision ENT ENT ED: Denies rhinorrhea or sore throat Cardiovascular Cardiovascular: Reports chest pain; Denies palpitations Respiratory/Chest Respiratory/Chest: Denies cough or dyspnea Gastrointestinal Gastrointestinal: Reports abdominal pain, diarrhea, nausea and vomiting; Denies melena Genitourinary Genitourinary ED: Denies dysuria or hematuria Musculoskeletal Musculoskeletal: Reports myalgias; Denies back pain or neck pain Integumentary Reports abscess; Denies rash Neurologic Neurologic: Reports headache(s); Denies weakness Psychiatric Psychiatric: Reports anxiety Allergic/Immunologic Allergic/Immunologic ED: Denies mouth swelling or urticaria EXAM Physical Exam Const Vital Signs: 09/01/22 08:03 Temperature 97.6 F L Temperature Source Temporal Pulse Rate 97 Respiratory Rate 14 Blood Pressure 139/90 H Blood Pressure Mean 106 Pulse Ox 98 Oxygen Delivery Method Room Air Positive well nourished, well developed and obese General Appearance ED: well developed and NAD Nutritional Appearance: obese HEENT Reports moist mucous membranes Neck supple and no JVD Resp normal respiratory effort and clear to auscultation bilaterally Cardio regular rate and regular rhythm GI normal to inspection, nondistended, normoactive bowel sounds Palpation: soft and tender epigastric, LUQ, RUQ and periumbilical; Negative for guarding or rebound tenderness present Extremity normal to inspection General Extremety ED: Negative for edema or tenderness General Extremity: Negative for edema Neuro oriented x3, CN's II-XII intact bilaterally and no sensory deficits noted Sensorium / Orientation: alert Motor Exam: strength 5/5 throughout Psych mental status grossly normal Skin no rashes or lesions noted MDM MDM MDM Narrative Medical decision making narrative: Differential diagnosis includes cholecystitis, cholelithiasis, pancreatitis, gastritis, peptic ulcer disease, bowel obstruction, perforation, pyelonephritis, and urinary tract infection. CBC will be obtained to assess for leukocytosis and anemia. Comprehensive metabolic profile will be obtained to assess for hepatic function, renal function, and electrolyte abnormality. Lipase will be obtained to assess for pancreatitis. Urinalysis will be obtained to assess for urinary tract infection. CT scan of the abdomen pelvis will be obtained to assess for cholecystitis, cholelithiasis, pancreatitis, bowel obstruction, and perforation. Lab Data Attestation: I reviewed the patient's lab results. Lab results narrative: CBC was reviewed and was within normal limits. Comprehensive metabolic profile was reviewed and was within normal limits. Lipase was reviewed and was normal at 23. Urinalysis was reviewed. There is no evidence of urinary tract infection or hematuria. Labs: Laboratory Results - last 24 hr 09/01/22 09/01/22 08:55 09:55 WBC 8.2 RBC 4.26 Hgb 13.3 Hct 41.2 MCV 96.7 MCH 31.2 MCHC 32.3 RDW Std Deviation 51.9 H RDW Coeff of Jakub 14.7 H Plt Count 209 MPV 9.8 Immature Gran % (Auto) 0.400 Neut % (Auto) 42.4 L Lymph % (Auto) 34.8 Frederick % (Auto) 9.6 Eos % (Auto) 11.9 H Baso % (Auto) 0.9 Absolute Neuts (auto) 3.5 Absolute Lymphs (auto) 2.86 Nucleated RBC % 0 Sodium 140 Potassium 4.0 Chloride 105 Carbon Dioxide 27.0 Anion Gap 8 BUN 17 Creatinine 0.98 Estim Creat Clear Calc 51.40 Est GFR (MDRD) Af Amer 74 Est GFR (MDRD) Non-Af 61 BUN/Creatinine Ratio 17.4 Glucose 99 Calcium 8.8 Total Bilirubin 0.40 AST 31 ALT 35 Alkaline Phosphatase 84 Total Protein 7.7 Albumin 3.3 Globulin 4.4 H Albumin/Globulin Ratio 0.8 L Lipase 23 Urine Color Yellow Urine Clarity Clear Urine pH 6.0 Ur Specific [place] 1.010 Urine Protein Negative Urine Glucose (UA) Normal Urine Ketones Negative Urine Occult Blood Negative Urine Nitrite Negative Urine Bilirubin Negative Urine Urobilinogen Normal Ur Leukocyte Esterase Negative Urine RBC 0 SEEN Urine WBC 0 SEEN Ur Squamous Epith Cells 0-5 SEEN Urine Bacteria 0 SEEN Urine Mucus 0 SEEN Radiography Diagnostic Testing: Clinical Impression(s) from Imaging Studies Abdomen/Pelvis CT 09/01/22 08:31 IMPRESSION: 1. The kidneys, urinary tract, and bladder are unremarkable. 2. 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 3. Sigmoid diverticulosis without acute diverticulitis. No sign of bowel obstruction. 4. Prior hysterectomy. 5. Degenerative changes of the spine, as described. Electronically Signed: Jean Lmi MD at 10:47 EDT Reading Location ID and State: [id number] / Unknown , Service support , CT scan of the abdomen pelvis was obtained. There are 2 small hemangiomata in the liver. There is no evidence of cholecystitis or cholelithiasis. There is sigmoid diverticulosis but no evidence of diverticulitis. There is no evidence of bowel obstruction or perforation. This was interpreted by the radiologist and was also independently reviewed by myself. Treatment and Re-Evaluation :: Patient was given IV fluids, morphine, and Zofran. Patient was advised of her findings. Patient is feeling better on reevaluation. Patient was instructed to follow-up with her primary care physician in 5 to 7 days for further evaluation. Patient was given referral for gastroenterology follow-up. Patient was instructed to return if worse in any way. Patient understood and was agreeable with the plan. All questions were answered. Discharge Plan Triage Chief Complaint: Abd Pain ED Provider: Luis Myers Dx/Rx/DC Orders Clinical Impression: Abdominal pain in female Instructions: ED Abdominal Pain Unkn Cause Fem Prescriptions: No Action Humira(CF) Pen 40 mg/0.4 mL pen injector kit 40 mg subcut WE albuterol sulfate 90 mcg/actuation HFA aerosol inhaler 1 puff inhalation Q6H PRN (Reason: ASTHMA) cholecalciferol (vitamin D3) 1,250 mcg (50,000 unit) capsule 50,000 unit PO MO Patient Comments: TAKE 1 CAPSULE BY MOUTH ONCE A WEEK meloxicam 15 mg tablet 5 mg PO BID Patient Comments: TAKE 1 2 (ONE HALF) TABLET BY MOUTH TWICE DAILY citalopram 40 MG tablet 20 mg PO DAILY lisinopril 20 tablet 60 mg PO DAILY omeprazole 20 capsule,delayed release(DR/EC) 20 mg PO DAILY pravastatin 20 tablet 40 mg PO DAILY allopurinol 100 mg Tablet 150 mg PO DAILY zinc 100 mg Tablet 100 mg PO DAILY fluticasone propionate 50 mcg/actuation spray,suspension 1 spray INTRANASAL DAILY Patient Comments: USE 1 SPRAY IN EACH NOSTRIL ONCE DAILY Primary Care Provider: Casey Ling Referrals: Casey Ling MD [Primary Care Provider] - 5-7 Days Zan Clark DO [Med Staff - Active Staff] - 5-7 Days Disposition Disposition: Home, Self Care
--- NOTE | 2022-09-01 08:31 | CT_ITS ---
STUDY: CT ABDOMEN AND PELVIS WITH CONTRAST - URINARY TRACT REASON FOR EXAM: Female, 62 years old. Abdominal pain -- IV PO Contrast RADIATION DOSAGE (If Supplied By Facility): CTDIvol = ( 19.44 ) mGy, DLP = ( 1349.75 ) mGycm TECHNIQUE: Oral and amp; IV Gastrografin and amp; 100mL Isovue-300 was administered. Transaxial images were obtained from the dome of the diaphragm to the symphysis pubis in the arterial, nephrographic and excretory phases. Multiplanar coronal and sagittal images were reformatted. Individualized Dose Optimization Techniques Were Used For This CT. COMPARISON: FINDINGS: There is some elevation of the right diaphragm, etiology uncertain. The visualized lung bases are unremarkable. The visualized portions of the heart are within normal limits. The uppermost dome of the liver is not fully included in the [id number]. Mildly irregular 1.9 cm hypodensity in the medial margin of the dome of the liver (series 2 image 5, series 601 image 56) may be artifact, incomplete opacification of the hepatic vein, or other focal lesion, such as hemangioma or focal fatty infiltration 5 mm hyperdensity in the mid upper right lobe of liver (series 2 image 7, series 601 image 71) may also be a small hemangioma. The patent portal vein diameter is 15 mm. Normal gallbladder and extrahepatic biliary system. Normal spleen. Normal pancreas. Normal bilateral adrenal glands. Normal visualized stomach. Normal small intestine. There are numerous small diverticula of the sigmoid colon. The appendix is visualized and appears normal. Normal abdominal aorta. No retroperitoneal adenopathy. Normal right kidney. Normal left kidney. No hydronephrosis. Normal urinary bladder. The uterus is absent. The adnexa are not visualized. The patient is morbidly obese. There is a small, elongated, fat filled umbilical hernia. There are multilevel [id number] degenerative changes of the lumbar spine, including disc height narrowing at L4-5, L4-5 facet arthropathies, and a grade 1 L4-5 spondylolisthesis. There is mild mid lumbar dextroscoliosis. Degenerative change also seen at the pubic symphysis. CT/Abdomen/Pelvis WITH Contrast IMPRESSION: 1. The kidneys, urinary tract, and bladder are unremarkable. 2. 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 3. Sigmoid diverticulosis without acute diverticulitis. No sign of bowel obstruction. 4. Prior hysterectomy. 5. Degenerative changes of the spine, as described. Electronically Signed: Jean Lim MD at 10:47 EDT Reading Location ID and State: [id number] / Unknown , Service support ,
[2022-09-01] MEDS: Ondansetron 4 MG/2 ML Vial IV (08:50)
[2022-09-01] MEDS: Morphine 4 MG/ML Syringe IV (08:50)
[2022-09-01] MEDS: 0.9% Normal Saline 1,000 ML 1000 ML IV (08:50)
[2022-09-01 09:14] LABS: Absolute Lymphocyte Count 2.86 X10^3/uL (0.83-4.51); Absolute Neutrophil Count 3.5 X10^3/uL (2.0-7.7); Basophil# 0.07 X10^3/uL; Basophil% 0.9 % (0-1); Eosinophil# 0.98 X10^3/uL; Eosinophils% 11.9 % (0-5); Hematocrit 41.2 % (37-47); Hemoglobin 13.3 g/dL (12.0-15.0); Lymphocyte # 2.86 X10^3/ul (0.83-4.51); Lymphocyte % 34.8 % (19-41); Mean Corp Hgb Conc 32.3 g/dL (32-36); Mean Corpuscular Hgb 31.2 pg (27.0-32.0); Mean Corpuscular Volume 96.7 fL (81-99); Mean Platelet Vol. 9.8 fl (6.2-12.0); Monocyte# 0.79 X10^3/uL; Monocyte% 9.6 % (0-10); NRBC Flagged by Analyzer 0 % (0-5); Neutrophil # 3.48 X10^3/uL (2.7-7.7); Neutrophil % 42.4 % (47-70); Platelet Count 209 K/mm3 (150-450); RBC Distribution Width CV 14.7 % (11.6-14.6); RBC Distribution Width SD 51.9 fl (35.1-43.9); Red Blood Count 4.26 M/mm3 (4.2-5.4); White Blood Count 8.2 K/mm3 (4.4-11.0)
[2022-09-01 09:38] LABS: ALB/GLOB Ratio 0.8 RATIO (0.9-2.4); AST(SGOT) 31 U/L (15-37); Alanine Aminotransfer ALT/SGPT 35 U/L (13-56); Albumin, Serum 3.3 g/dL (3.2-5.0); Alkaline Phosphatase 84 U/L (45-117); Anion Gap 8 (5-15); BUN 17 mg/dL (7-18); BUN/Creat Ratio 17.4 RATIO (10-20); Calcium,Total 8.8 mg/dL (8.5-10.1); Chloride 105 mmol/L (98-107); Creatinine, Serum 0.98 mg/dL (0.55-1.02); EST Glomerular Filtration Rate 61 mL/min (>60); Est Glom Filt Rate - Afr Amer 74 mL/min (>60); Globulin 4.4 g/dL (2.2-4.2); Glucose 99 mg/dL (74-106); Lipase 23 U/L (13-75); Protein, Total 7.7 g/dL (6.4-8.2); Sodium Level 140 mmol/L (136-145)
[2022-09-01 09:59] LABS: Bacteria 0 SEEN /hpf (None Seen); Mucous, Urine 0 SEEN /hpf (<or=2+); Red Blood Cells-Urine 0 SEEN /hpf (0-5); White Blood Cells 0 SEEN /hpf (0-5)
[2022-09-01 10:09] LABS: Color, Urine Yellow (Yellow); Glucose, Dipstick Normal (Normal); Ketone-Dipstick Negative (Negative); Leukocyte Esterase-Dipstick Negative /ul (Negative); Nitrite-Dipstick Negative (Negative); Occult Blood-Urine Negative /ul (Negative); Protein-Dipstick Negative (Negative); Urine Bilirubin Dipstick Negative (Negative); Urine Clarity Clear (Clear); Urine Urobilinogen Normal (Normal)
[2022-09-01 10:20] LABS: Squamous Epithelial Cells - UA 0-5 SEEN /hpf (5-10)
[2022-09-01 11:14] VITALS: BP 118/64; PULSE 82; RESP 16
== END 2022-09-01 11:20 | disposition home or self-care (01) ==
PROVIDERS: Emergency Provider Emergency Medicine; PCP Family Medicine; Visit Provider Emergency Medicine
DX: R10.9 Unspecified abdominal pain (principal); R11.2 Nausea with vomiting, unspecified; F17.210 Nicotine dependence, cigarettes, uncomplicated; I10 Essential (primary) hypertension; E78.00 Pure hypercholesterolemia, unspecified; K21.9 Gastro-esophageal reflux disease without esophagitis; Z79.899 Other long term (current) drug therapy; M19.90 Unspecified osteoarthritis, unspecified site; J45.909 Unspecified asthma, uncomplicated
CPT/HCPCS: 74177; 80053; 81001; 83690; 85025; 96361; 96374; 96375; 99283; J7030; Q9967; A4216; J2405

== ENCOUNTER 2023-05-20 21:06 | Emergency (ER) | payer MEDICAID, SELFPAY ==
[2023-05-20 21:07] VITALS: BP 169/104; PULSE 101; RESP 25; TEMP 36.1; O2SAT 93; BMI 47.0
--- NOTE | 2023-05-20 22:00 | EDS_ITS ---
HPI History of Present Illness Chief Complaint: General Illness Informant: patient Onset/Context/Timing Onset: Weeks Context: Gradual Onset Timing: Continuous Current Severity: Mild Maximum Severity: Mild Narrative Narrative: 52-year-old female history of asthma uses DuoNeb and inhaler at home. Says she is progressively gotten worse of the 2 weeks initially started out as clear sputum and white now it is dark. No hemoptysis. No chest pain. She has been wheezing. Prior similar symptoms: Yes Recent Illness/Hospitalization: No PFSH PFS Medical History Abnormal mammogram Abnormal ultrasound of breast Alcohol use Anxiety Arthritis Asthma Back pain Erdheim-Philip disease Gastric reflux GERD (gastroesophageal reflux disease) Gout H/O hidradenitis suppurativa High cholesterol History of diverticulosis History of hiatal hernia History of IBS History of stress test Hyperlipemia Hypertension Injury of head and neck Leg cramps Open wound Smoker Wears glasses Home Medications citalopram 40 mg tablet 20 mg PO DAILY 04/04/16 [History Last Taken Unknown] lisinopril 20 mg tablet 60 mg PO DAILY 01/28/19 [History Last Taken Unknown] omeprazole 20 mg capsule,delayed release 20 mg PO DAILY 01/28/19 [History Last Taken Unknown] pravastatin 20 mg tablet 40 mg PO DAILY 01/28/19 [History Last Taken Unknown] allopurinol 100 mg tablet 150 mg PO DAILY 07/09/20 [History Last Taken Unknown] adalimumab 40 mg/0.4 mL subcutaneous pen kit (Humira(CF) Pen) 40 mg subcut WE 07/23/20 [History Last Taken Unknown] albuterol sulfate 90 mcg/actuation aerosol inhaler 1 puff inhalation Q6H PRN ASTHMA 07/23/20 [History Last Taken Unknown] cholecalciferol (vitamin D3) 1,250 mcg (50,000 unit) capsule 50,000 unit PO MO 07/23/20 [History Last Taken Unknown] meloxicam 15 mg tablet 5 mg PO BID 07/23/20 [History Last Taken Unknown] fluticasone propionate 50 mcg/actuation nasal spray,suspension 1 spray intranasal DAILY 10/30/20 [History Last Taken Unknown] zinc 100 mg tablet 100 mg PO DAILY 10/30/20 [History Last Taken Unknown] azithromycin 250 mg tablet (Zithromax Z-Royce) 250 mg PO DAILY 4 days #4 tabs 05/20/23 [Rx Last Taken Unknown] prednisone 20 mg tablet 40 mg (2 x 20 mg) PO DAILY 10 days #20 tabs 05/20/23 [Rx Last Taken Unknown] Allergy/AdvReac Type Severity Reaction Status Date / Time codeine AdvReac Other Verified 09/01/22 08:03 Family History Mother Cervical cancer Autoimmune disease Asthma Arthritis Father Heart disease Surgical History Hx of appendectomy Hx of hysterectomy Social History Smoking Status: Current every day smoker tobacco type: cigarettes alcohol intake: current alcohol intake frequency: a few times a week substance use type: does not use caffeine: Yes what type of physical activity do you participate in: none frequency: does not exercise ROS ROS ED ROS Narrative Cough. Wheezing. Subjective fever. Review of Systems ROS Unobtainable: Denies due to encephalopathy Constitutional Constitutional ED: Reports fever(s); Denies chills Eyes Eyes: Denies blurry vision ENT ENT ED: Denies ear pain Cardiovascular Cardiovascular: Denies chest pain or palpitations Respiratory/Chest Respiratory/Chest: Reports cough, sputum and other Details: Wheezing Gastrointestinal Gastrointestinal: Denies abdominal pain, diarrhea, nausea or vomiting Genitourinary Genitourinary ED: Denies dysuria or hematuria Musculoskeletal Musculoskeletal: Denies arthralgias Integumentary Denies abscess Neurologic Neurologic: Denies headache(s) Psychiatric Psychiatric: Denies anxiety Endocrine Endocrinology: Denies cold intolerance Hematologic/Lymphatic Hematologic/Lymphatic: Reports none Allergic/Immunologic Allergic/Immunologic ED: Denies mouth swelling, tongue swelling or urticaria EXAM Physical Exam Narrative Exam Narrative: 60-year-old female no acute distress. Vital signs stable afebrile. Pulse ox 93% on room air no hypoxia. HEENT exam unremarkable. Mytrex membranes. Neck nontender no lymphadenopathy. Lungs scattered expiratory wheezes. No rales or rhonchi. Equal symmetrical. No distress. Heart regular rhythm rate about 100 no murmur. Abdomen soft nontender. Moving all 4 extremities. Calves are nontender without edema or cords. Neurologically she is awake and alert no focal motor deficits. Const Vital Signs: 05/20/23 21:07 05/20/23 22:12 05/20/23 22:08 Temperature 97 F L 98.4 F Temperature Source Temporal Oral Pulse Rate 101 H 92 Respiratory Rate 25 H 20 H Respiratory Effort Short of Breath Respiratory Pattern Normal Blood Pressure 169/104 H 141/77 H Blood Pressure Mean 125 98 Pulse Ox 93 99 Oxygen Delivery Method Room Air Room Air 05/20/23 23:00 Temperature 98.2 F Temperature Source Temporal Pulse Rate 93 Respiratory Rate 19 H Respiratory Effort Respiratory Pattern Blood Pressure 140/79 H Blood Pressure Mean 99 Pulse Ox 91 Oxygen Delivery Method Room Air Positive well nourished and well developed; Negative for cachectic, contractures or unkempt General Appearance ED: well developed and NAD; Negative for unkempt, cachectic, contractures, cyanotic, diaphoretic or pallor Nutritional Appearance: Negative for cachectic HEENT Reports moist mucous membranes Negative for trauma or tenderness Eyes PERRL and EOMs intact bilaterally General Eye ED: Negative for pale conjunctiva or scleral icterus Neck no lymphadenopathy, supple and no JVD General: Negative for tenderness Lymph Lymphatic: Negative for other Chest Wall inspection of chest normal and palpation of chest normal Chest: Negative for other Resp normal respiratory effort and No clear to auscultation bilaterally Auscultation: wheezes Cardio regular rate, regular rhythm, S1 normal heart sound, S2 normal heart sound and no murmurs Palpation: Negative for palpable S3 or palpable S4 Rate: Negative for bradycardia or tachycardic Rhythm: Negative for abnormal rhythm GI normal to inspection, nondistended, normoactive bowel sounds, non-tender, non- distended and no masses Auscultation: normoactive bowel sounds Palpation: soft and tender; Negative for guarding Back/Spine no CVA tenderness General Back: Negative for CVA tenderness Cervical Spine: Negative for cervical spine tenderness Thoracic Spine / Upper Back: Negative for thoracic spinal tenderness Lumbar Spine / Lower Back: Negative for lumbar spinal tenderness Extremity normal to inspection General Extremety ED: Negative for edema or tenderness General Extremity: Negative for edema Neuro oriented x3 and CN's II-XII intact bilaterally Sensorium / Orientation: alert and orientation impaired; Negative for lethargic or stuporous Motor Exam: strength 5/5 throughout Psych mental status grossly normal Appearance: Negative for unkempt Attitude: No agitated Mood & Affect: Negative for depressed, anxious or tearful Skin no rashes or lesions noted, no wounds and skin turgor normal General Skin Exam: Negative for jaundice or pallor Lesions: No lesion noted Rashes: No rashes noted Trauma: Negative for abrasion Wounds: Negative for wounds noted MDM MDM MDM Narrative Medical decision making narrative: 62-year-old URI with wheezing. DuoNeb aerosol. 60 p.o. prednisone. Two-view chest x-ray. Repeat exam patient doing well at 11:25 PM. Wheezing resolved after the prednisone and aerosol treatment. She is feeling better. Patient be discharged home with Zithromax Z-Royce first dose given here. Prednisone 40 mg a day for 1 week. Outpatient follow-up. Patient is comfortable with the plan. We went over her chest x-ray results. History & Record Review Discussion w/independent historian: Patient Lab Data Attestation: I reviewed the patient's lab results. Lab results narrative: COVID, flu and RSV are all negative. Chest x-ray shows chronic changes no pneumonia. Interpreted by myself and the radiologist. Radiography Chest X-Ray - ED: 2 View, Read by ED Physician, Read by Radiologist, Heart, Lungs, Bony Structures, No Acute Disease and Chronic Changes Diagnostic Testing: Clinical Impression(s) from Imaging Studies Chest X-Ray 05/20/23 22:25 IMPRESSION: No acute pulmonary process Electronically Signed: Jean Lowery MD at 23:01 EDT Reading Location ID and State: [address] [place] [address] , Service support , Chest x-ray, 2 views, interpreted both myself and the radiologist shows no pneumonia. No infiltrates. No effusions. Normal cardiac silhouette. Chronic changes. Discharge Plan Triage Chief Complaint: General Illness ED Provider: Peter Hamilton Dx/Rx/DC Orders Clinical Impression: Asthma flare, Bronchitis Instructions: ED Bronchitis with Wheezing (Adult), Asthma Prescriptions: New azithromycin [Zithromax Z-Royce] 250 mg tablet 250 mg PO DAILY 4 Days Qty: 4 0RF Rx Instructions: start on day 2 of therapy prednisone 20 mg tablet 40 mg PO DAILY 10 Days Qty: 20 0RF No Action Humira(CF) Pen 40 mg/0.4 mL pen injector kit 40 mg subcut WE albuterol sulfate 90 mcg/actuation HFA aerosol inhaler 1 puff inhalation Q6H PRN (Reason: ASTHMA) cholecalciferol (vitamin D3) 1,250 mcg (50,000 unit) capsule 50,000 unit PO MO Patient Comments: TAKE 1 CAPSULE BY MOUTH ONCE A WEEK meloxicam 15 mg tablet 5 mg PO BID Patient Comments: TAKE 1 2 (ONE HALF) TABLET BY MOUTH TWICE DAILY citalopram 40 MG tablet 20 mg PO DAILY lisinopril 20 tablet 60 mg PO DAILY omeprazole 20 capsule,delayed release(DR/EC) 20 mg PO DAILY pravastatin 20 tablet 40 mg PO DAILY allopurinol 100 mg Tablet 150 mg PO DAILY zinc 100 mg Tablet 100 mg PO DAILY fluticasone propionate 50 mcg/actuation spray,suspension 1 spray INTRANASAL DAILY Patient Comments: USE 1 SPRAY IN EACH NOSTRIL ONCE DAILY Primary Care Provider: Casey Ling Referrals: Casey Ling MD [Primary Care Provider] - 3-5 Days if not improving Activity Restrictions/Additional Instructions: No pneumonia on your chest x-ray. The antibiotic Zithromax 1 pill a day starting tomorrow and dinner. Prednisone daily at lunch 40 mg a day for 1 week. Use your inhaler as needed. Nebulizer as needed. Follow-up with your doctor if not improving or return if a lot worse. Disposition Disposition: Home, Self Care
[2023-05-20 22:08] VITALS: BP 141/77; PULSE 99; RESP 20; TEMP 36.9; O2SAT 92
[2023-05-20] MEDS: Ipratropium/Albuterol Sulfate 3 ML AMPUL.NEB INHALATION (22:12)
[2023-05-20] MEDS: predniSONE 20 MG Tablet 60 MG PO (22:12)
--- NOTE | 2023-05-20 22:25 | RAD_ITS ---
STUDY: X-RAY CHEST REASON FOR EXAM: Female, 62 years old. Fever and cough TECHNIQUE: PA and lateral views of the chest. COMPARISON: 12/21/2021 FINDINGS: The lungs are clear and expanded. There is no demonstrated pleural abnormality. Normal size heart. Normal mediastinum and junito. Normal visualized pulmonary arteries. Normal visualized aortic arch and descending thoracic aorta. Normal visualized thoracic spine. Normal visualized ribs, clavicles, and shoulders. There is no demonstrated abnormality of the visualized soft tissue structures of the upper abdomen. RAD/Chest PA and Lateral IMPRESSION: No acute pulmonary process Electronically Signed: Jean Lowery MD at 23:01 EDT ,
[2023-05-20 23:00] VITALS: BP 140/79; PULSE 93; RESP 19; TEMP 36.8; O2SAT 91
[2023-05-20] MEDS: Azithromycin 250 MG Tablet 500 MG PO (23:38)
[2023-05-20 23:40] VITALS: BP 140/79; PULSE 93; RESP 19; TEMP 36.8; O2SAT 91
== END 2023-05-20 23:42 | disposition home or self-care (01) ==
PROVIDERS: Emergency Provider Emergency Medicine; PCP Family Medicine; Visit Provider Emergency Medicine
DX: J45.901 Unspecified asthma with (acute) exacerbation (principal); E78.00 Pure hypercholesterolemia, unspecified; I10 Essential (primary) hypertension; Z79.899 Other long term (current) drug therapy; M10.9 Gout, unspecified; K21.9 Gastro-esophageal reflux disease without esophagitis; Z90.49 Acquired absence of other specified parts of digestive tract; Z90.710 Acquired absence of both cervix and uterus; F17.210 Nicotine dependence, cigarettes, uncomplicated
CPT/HCPCS: 71046; 87631; 94640; 99283

== ENCOUNTER → 2023-05-25 | Outpatient (CLI) | payer MEDICAID, SELFPAY ==
--- NOTE | 2023-05-25 14:34 | RAD_ITS ---
STUDY: X-RAY - LUMBAR SPINE REASON FOR EXAM: Female, 62 years old. SCIATICA, UNSPECIFIED SIDE TECHNIQUE: view(s) of the lumbar spine were obtained. COMPARISON: None FINDINGS: Normal lumbar lordosis. There is a mild dextroscoliosis. There is a minimal spondylolisthesis at L4-5. Normal vertebral bodies with mild spurring at the endplates. Normal disc space heights. The soft tissue structures are unremarkable. RAD/Lumbar Spine 2 or 3 Views IMPRESSION: Mild scoliosis and degenerative changes of the lumbar spine. Electronically Signed: Marcos Meehan DO at 22:26 EDT Reading Location ID and State: [facility] / [place] Tel [phone], Service support ,
== END | disposition home or self-care (01) ==
PROVIDERS: PCP Family Medicine; Referring Provider Anesthesiology Pain Medicine; Visit Provider Anesthesiology Pain Medicine
DX: M41.56 Other secondary scoliosis, lumbar region (principal)
CPT/HCPCS: 72100

== ENCOUNTER 2024-12-26 15:41 | Emergency (ER) | payer MEDICAID, SELFPAY ==
[2024-12-26 15:42] VITALS: BP 154/95; PULSE 108; RESP 20; TEMP 36.6; O2SAT 100; BMI 43.7
--- NOTE | 2024-12-26 15:45 | CT_ITS ---
PROCEDURE: CT BRAIN/HEAD WITHOUT CONTRAST 12/26/2024 REASON FOR EXAM: HEADACHE, DIZZINESS, FALLS TECHNIQUE: Procedure Code: CTBR Modality: CT Procedure: BRAIN/HEAD WITHOUT CONTRAST Coronal and Sagittal reconstruction series were provided. One or more dose reduction techniques were used (e.g., Automated exposure control, adjustment of the mA and/or kV according to patient size, use of iterative reconstruction technique. RADIATION DOSE SUMMARY: CTDlvol: 44.99 mGy DLP: 796.11 mGycm COMPARISON: Brain MRI and CT head/angiography 12/21/2021. FINDINGS: No acute intracranial hemorrhage, extra-axial collection, mass effect or evidence of acute infarct. Ventricles and subarachnoid spaces are normal in size. Orbital contents are unremarkable. Intact skull base and calvarium. Clear paranasal sinuses and mastoid air cells. CT/Brain/Head without Contrast IMPRESSION: No acute intracranial abnormality. Reading Location: [id number]
[2024-12-26] MEDS: 0.9% Normal Saline (1000mL) 1,000 ML 999 ML IV (17:14)
[2024-12-26 17:16] LABS: Mucous, Urine 0 SEEN /hpf (<or=2+)
[2024-12-26 17:34] VITALS: BP 150/93; PULSE 82; RESP 16; O2SAT 99
[2024-12-26 17:46] LABS: Hematocrit 38.0 % (37-47); Hemoglobin 12.6 g/dL (12.0-15.0); Mean Corp Hgb Conc 33.2 g/dL (32-36); Mean Corpuscular Volume 92.9 fL (81-99); Mean Platelet Vol. 10.1 fl (6.2-12.0); Platelet Count 218 K/mm3 (150-450); RBC Distribution Width CV 14.6 % (11.6-14.6); RBC Distribution Width SD 50.4 fl (35.1-43.9); Red Blood Count 4.09 M/mm3 (4.2-5.4); White Blood Count 9.1 K/mm3 (4.4-11.0)
--- NOTE | 2024-12-26 17:49 | EX.ED.DYSGE1 ---
HPI History of Present Illness Chief Complaint: Fall Narrative Narrative: Patient was seen and examined after presenting to ED for having headache feeling somewhat lightheaded she is coming in because she states that she had a couple mechanical falls over the last month that were true mechanical falls 1 was she was going backwards while trying to build a house fell 7 feet hit the back of her head another 1 was she tripped over a pipe and fell forward and smacked her face that most recent 1 was about 2 weeks ago she says since then though she has been having some headaches feeling lightheaded. [facility] Medical History Wears glasses Alcohol use Anxiety Open wound H/O hidradenitis suppurativa Gout Arthritis High cholesterol Back pain Injury of head and neck History of IBS History of diverticulosis History of hiatal hernia Gastric reflux Smoker Asthma Leg cramps History of stress test Abnormal ultrasound of breast Abnormal mammogram Hyperlipemia GERD (gastroesophageal reflux disease) Erdheim-Philip disease Hypertension Home Medications Medication Instructions Recorded Last Taken Type citalopram 40 mg tablet 20 mg PO DAILY 04/04/16 Unknown History lisinopril 20 mg tablet 60 mg PO DAILY 01/28/19 Unknown History omeprazole 20 mg capsule,delayed 20 mg PO DAILY 01/28/19 Unknown History release pravastatin 20 mg tablet 40 mg PO DAILY 01/28/19 Unknown History allopurinol 100 mg tablet 150 mg PO DAILY 07/09/20 Unknown History adalimumab 40 mg/0.4 mL 40 mg subcut WE 07/23/20 Unknown History subcutaneous pen kit (Humira(CF) Pen) albuterol sulfate 90 mcg/actuation 1 puff inhalation Q6H PRN ASTHMA 07/23/20 Unknown History aerosol inhaler cholecalciferol (vitamin D3) 1,250 50,000 unit PO MO 07/23/20 Unknown History mcg (50,000 unit) capsule meloxicam 15 mg tablet 5 mg PO BID 07/23/20 Unknown History fluticasone propionate 50 1 spray intranasal DAILY 10/30/20 Unknown History mcg/actuation nasal spray,suspension zinc 100 mg tablet 100 mg PO DAILY 10/30/20 Unknown History azithromycin 250 mg tablet 250 mg PO DAILY 4 days #4 tabs 05/20/23 Unknown Rx (Zithromax Z-Royce) prednisone 20 mg tablet 40 mg (2 x 20 mg) PO DAILY 10 days 05/20/23 Unknown Rx #20 tabs Allergy/AdvReac Type Severity Reaction Status Date / Time codeine AdvReac Other Verified 12/26/24 15:42 Family History Mother Cervical cancer Autoimmune disease Asthma Arthritis Father Heart disease Surgical History Hx of appendectomy Hx of hysterectomy Social History Smoking Status: Current every day smoker tobacco type: cigarettes alcohol intake: current alcohol intake frequency: a few times a week substance use type: does not use caffeine: Yes what type of physical activity do you participate in: none frequency: does not exercise ROS ROS ED ROS Narrative Pertinent Positives: Headaches lightheadedness multiple mechanical falls Pertinent Negatives: Loss of consciousness use of anticoagulation chest pain shortness of breath nausea vomiting diarrhea abdominal pain The remainder of review of systems negative unless otherwise stated in the HPI above. Systems reviewed including constitutional, psychiatric, cardiovascular, respiratory, integument, HENT, gastrointestinal. EXAM Physical Exam Narrative Exam Narrative: Patient is afebrile hemodynamically stable does not appear toxic or in distress normocephalic and atraumatic pupils equal round reactive to light normal heart and lung sounds. Abdomen is soft nontender nondistended abdomen is soft nontender nondistended no palpable pulsatile mass has intact and equal MSPs in their extremities. No evidence of nystagmus no evidence of ataxia either no cerebellar signs Const Vital Signs: 12/26/24 15:42 12/26/24 16:40 12/26/24 17:34 Temperature 97.8 F Temperature Source Oral Pulse Rate 108 H 82 Respiratory Rate 20 H 16 Respiratory Effort Normal Blood Pressure 154/95 H 150/93 H Blood Pressure Mean 114 112 Pulse Ox 100 99 Oxygen Delivery Method Room Air 12/26/24 18:52 Temperature Temperature Source Pulse Rate 70 Respiratory Rate 18 Respiratory Effort Blood Pressure 148/90 H Blood Pressure Mean 109 Pulse Ox 99 Oxygen Delivery Method Room Air MDM MDM MDM Narrative Medical decision making narrative: Nursing notes, triage notes, available previous documentation, and vital signs were reviewed. Any discrepancies noted were addressed. Differential Diagnoses: Some of her symptoms are aligning almost more with a concussion low suspicion for any sort of intracranial bleed or mass but we will evaluate low suspicion for infectious related etiology does not seem to be consistent with meningitis Interventions: Fluids Given: 1 L normal saline Labs Reviewed: No leukocytosis leukopenia anemia electrolyte abnormality renal insufficiency urine with 25 leukocyte esterase Imaging Reviewed: Personally reviewed and interpreted by me: CT head I did not see any obvious acute pathology such as a mass or bleeding the official interpretation is also agreeable Previous Documentation Reviewed: None available or applicable at this time. ED Course: Patient presenting with symptoms as stated above following couple different mechanical falls that were truly mechanical not because she was having some sort of prodromal symptom seems to be consistent as if she were to have acute concussion as she will have the intermittent headaches or lightheadedness or feel like she is confused or in a fog. Barring any significant findings on her labs patient will be discharged as her CT was already unremarkable she can follow-up with her primary care physician. Return precautions follow-up recommendations provided she is stable for discharge. Urine without any significant evidence of infection we will discharge this patient home return precautions follow-up recommendations provided she is stable for discharge This note was made utilizing voice recognition software. All attempts were made to correct spelling or other errors prior to note completion. However, due to the fast-paced nature of emergency medicine, some errors may still be present. Lab Data Labs: Laboratory Results - last 24 hr 12/26/24 12/26/24 17:08 17:11 WBC 9.1 RBC 4.09 L Hgb 12.6 Hct 38.0 MCV 92.9 MCH 30.8 MCHC 33.2 RDW Std Deviation 50.4 H RDW Coeff of Jakub 14.6 Plt Count 218 MPV 10.1 Sodium 141 Potassium 3.4 Chloride 104 Carbon Dioxide 26.2 Anion Gap 11 BUN 24 H Creatinine 0.88 Estim Creat Clear Calc 80.58 Est GFR (MDRD) Non-Af 74 BUN/Creatinine Ratio 27.1 H Glucose 121 H Calcium 9.2 Urine Color Yellow Urine Clarity Clear Urine pH 6.0 Ur Specific [place] 1.025 Urine Protein 30 H Urine Glucose (UA) Normal Urine Ketones 5 H Urine Occult Blood Negative Urine Nitrite Negative Urine Bilirubin Negative Urine Urobilinogen 1 H Ur Leukocyte Esterase 25 H Urine RBC 0-5 SEEN Urine WBC 0-5 SEEN Ur Squamous Epith Cells 0-5 SEEN Urine Bacteria 0 SEEN Urine Mucus 0 SEEN Radiography Diagnostic Testing: Clinical Impression(s) from Imaging Studies Brain CT 12/26/24 15:45 IMPRESSION: No acute intracranial abnormality. Reading Location: [facility] Discharge Plan Triage Chief Complaint: Fall ED Provider: Richard Doran Dx/Rx/DC Orders Clinical Impression: Fall, Concussion, Lightheadedness Instructions: ED Concussion Prescriptions: No Action Humira(CF) Pen 40 mg/0.4 mL pen injector kit 40 mg subcut WE albuterol sulfate 90 mcg/actuation HFA aerosol inhaler 1 puff inhalation Q6H PRN (Reason: ASTHMA) cholecalciferol (vitamin D3) 1,250 mcg (50,000 unit) capsule 50,000 unit PO MO Patient Comments: TAKE 1 CAPSULE BY MOUTH ONCE A WEEK meloxicam 15 mg tablet 5 mg PO BID Patient Comments: TAKE 1 2 (ONE HALF) TABLET BY MOUTH TWICE DAILY citalopram 40 MG tablet 20 mg PO DAILY lisinopril 20 tablet 60 mg PO DAILY omeprazole 20 capsule,delayed release(DR/EC) 20 mg PO DAILY pravastatin 20 tablet 40 mg PO DAILY allopurinol 100 mg Tablet 150 mg PO DAILY zinc 100 mg Tablet 100 mg PO DAILY fluticasone propionate 50 mcg/actuation spray,suspension 1 spray INTRANASAL DAILY Patient Comments: USE 1 SPRAY IN EACH NOSTRIL ONCE DAILY azithromycin [Zithromax Z-Royce] 250 mg tablet 250 mg PO DAILY 4 Days Qty: 4 0RF Rx Instructions: start on day 2 of therapy prednisone 20 mg tablet 40 mg PO DAILY 10 Days Qty: 20 0RF Primary Care Provider: Casey Ling Referrals: Casey Ling MD [Primary Care Provider, Family Practice] Activity Restrictions/Additional Instructions: Be sure to follow-up with your primary care doctor if you are having worsening symptoms do not hesitate to return Print Language: [place] Islander Disposition Disposition: Home, Self Care D/C Safety Score for UGIB Assessment Dipika-Blatchford Bleeding Score (GBS): Stratifies upper GI bleeding patients who are "low-risk" and candidates for outpatient management. Hemoglobin, BUN, Recent Vital Signs: Hgb 12.6 g/dL (12.0-15.0) 12/26/24 17:08 BUN 24 mg/dL (4-19) H 12/26/24 17:08 Pulse Rate 70 Blood Pressure 148/90 Score Interpretation: Score of 0: A GBS of 0 is a “Low Risk” GI bleed, and is highly sensitive (99.6% in a 2007 retrospective study) for predicting which patients did not require any “medical intervention”: blood transfusion, endoscopy, or surgery. This was confirmed in a 2009 [facility] study where patients with a score of 0 were actually discharged and had no GI bleeding mortality at 6 month followup Score above 0: A GBS greater than zero suggests a “High Risk” GI bleed that is likely to require “medical intervention”: transfusion, endoscopy, or surgery. A higher GBS also correlated with a higher likelihood of needing intervention Scores >/= 6 are associated with >50% risk of needing intervention D/C Safety Score for LGIB Assessment Assessment Tool: Readmission and adverse event risk in patients with acute lower GI bleeding. Hemoglobin and Recent Vital Signs: Hgb 12.6 g/dL (12.0-15.0) 12/26/24 17:08 Pulse Rate 70 12/26/24 18:52 Blood Pressure 148/90 12/26/24 18:52 Score Interpretation: Probability Percentage of safe discharge (absence of rebleeding, blood transfusion, therapeutic intervention, 28 day readmission, or ) Score of 8 or below: Consider discharge, with appropriate precautions. Score of 9 or above: Discharge NOT recommended. Consider admission with further workup and resuscitation as necessary.
[2024-12-26 17:56] LABS: Color, Urine Yellow (Yellow); Glucose, Dipstick Normal (Normal); Ketone-Dipstick 5 mg/dl (Negative); Leukocyte Esterase-Dipstick 25 /ul (Negative); Nitrite-Dipstick Negative (Negative); Occult Blood-Urine Negative /ul (Negative); Protein-Dipstick 30 mg/dl (Negative); Specific Gravity, Urine 1.025 (1.002-1.030); Urine Bilirubin Dipstick Negative (Negative)
[2024-12-26 18:01] LABS: Anion Gap 11 (5-15); BUN 24 mg/dL (4-19); BUN/Creat Ratio 27.1 RATIO (10-20); Calcium,Total 9.2 mg/dL (7.6-11.0); Carbon Dioxide 26.2 mmol/L (21.0-32.0); Chloride 104 mmol/L (98-108); Estimated Creatinine Clearance 80.58 ml/min (50-250); Glucose 121 mg/dL (70-99); Potassium 3.4 mmol/L (3.3-5.1)
[2024-12-26 18:52] VITALS: BP 148/90; PULSE 70; RESP 18; O2SAT 99
[2024-12-26 19:02] LABS: Red Blood Cells-Urine 0-5 SEEN /hpf (0-5); Squamous Epithelial Cells - UA 0-5 SEEN /hpf (5-10)
--- OUTSIDE RECORDS SUMMARY | 2024-12-26 19:31 | XMS RPT_ITS | CCD ---
Author Organization [facility] Care Team Providers Care Transformation Coach Name Role Phone Nathaly Nobles Unavailable Unavailable Mastriano, Kathrin Unavailable Unavailable Nathaly Nobles Unavailable Unavailable UNKNOWN, UNKNOWN Referring Unavailable Nathaly Nobles Attending Unavailable Tucker Stout Primary Care Unavail able Nathaly Nobles Attending Unavailable UNKNOWN, PCP Swapna Referring Unavailab Tucker Cooper Primary Care Unavail able Jessica SUPERVISOR GRADING.NED [facility] Primary Care Provider Jessica HAYNES Alma Rosa Primary Care Provider Casey Chang MD Primary Care Provider Casey Chang Primary Care Provider Casey Chang MD Primary Care Provider Casey Chang [facility] Care Unavailable Pa Schroeder Attending Unavailable Pa Schroeder Referring Unavailable Luis Myers Attending Unavailable Casey Chang Primary Care Unavailable Peter Hamilton Attending Unavailable [facility] Unavailable Casey Chang Michael Primary Care Provider CASEY CHANG Primary Care Unavailabl PA Stephens JUÁREZ Referring Unavailable Tucker Stout MD Primary Care Provide r CASEY CHANG Primary Care Unavailabl e TAMARA, SANCHEZ Referring Unavailable CASEY CHANG Primary Care Unavailabl e TAMARA, SANCHEZ Referring Unavailable CASEY CHANG MICHAEL Primary Care Unavailabl e PROVIDER, UNKNOWN Referring Unavailable CASEY CHANG MICHAEL Primary Care Unavailabl e PROVIDER, UNKNOWN Referring Unavailable MACKI, MOHAMED Admitting Unavailable MACKI, MOHAMED Attending Unavailable BERNARDO, CASEY MICHAEL Primary Care Unavailabl e BERNARDO, CASEY MICHAEL Primary Care Unavailabl e BONUS, GIA Referring Unavailable MACKI, MOHAMED Referring Unavailable BERNARDO, CASEY MICHAEL Primary Care Unavailabl e MACKI, MOHAMED Attending Unavailable BERNARDO, CASEY MICHAEL Primary Care Unavailabl e MACKI, MOHAMED Referring Unavailable BERNARDO, CASEY MICHAEL Primary Care Unavailabl e MACKI, MOHAMED Attending Unavailable BERNARDO, CASEY MICHAEL Primary Care Unavailabl e BERNARDO, CASEY MICHAEL Primary Care Unavailabl e MACKI, MOHAMED Attending Unavailable BERNARDO, CASEY MICHAEL Primary Care Unavailabl e MACKI, MOHAMED Attending Unavailable SELF Referring Unavailable BERNARDO, CASEY MICHAEL Primary Care Unavailabl e TAMARA, RAJINDER Attending Unavailable MACKI, MOHAMED Referring Unavailable ELYSSA RIZO Attending Unavailable BERNARDO, CASEY MICHAEL Primary Care Unavailabl e [facility], [facility] Primary Care Unavail able Bernardo, Casey Michael Primary Care Provider NATHALY NOBLES Attending Unavailable [facility] Primary Care Unavail able NATHALY NOBLES Referring Unavailable NATHALY NOBLES Attending Unavailable [facility] Primary Care Unavail able ZHANNA GUADARRAMA Referring Unavailable THIERRY, ZHANNA Attending Unavailable BERNARDO, CASEY Primary Care Unavailable BERNARDO, CASEY Attending Unavailable BERNARDO, CASEY Primary Care Unavailable BERNARDO, CASEY Primary Care Unavailable GUADARRAMA, ZHANNA Attending Unavailable BERNARDO, CASEY Primary Care Unavailable GUADARRAMA, ZHANNA Attending Unavailable BERNARDO, CASEY Primary Care Unavailable GUADARRAMA, ZHANNA Attending Unavailable BERNARDO, CASEY Primary Care Unavailable GUADARRAMA, ZHANNA Referring Unavailable GUADARRAMA, ZHANNA Attending Unavailable BERNARDO, CASEY Primary Care Unavailable Allergies Allergy Classification Reported Allergen(s) Allergy Type Date of Onset Reaction(s) Facility [facility]io[facility]on[facility] (5 sources) Codeine Drug Allergy 8 Other: See Comments [facility] (20 sources) Codeine; Translations: [CODEINE] Drug Allergy 8 Other: See Comments, Other [facility] (20 sources) beta Sitosterol / ZINC CITRATE Drug Allergy 2 [facility] (20 sources) Seasonal allergy Propensity to adverse reactions 3 [facility] (1 source) Codeine Drug Allergy [facility] Repository Medications Current Medications Medication Drug Class(es) Dates Sig (Normalized) Sig (Original) acetaminophen 325 mg / HYDROcodone bitartrate 5 mg oral tablet (7 sources) Opioid Agonist Start: 05-26-2023 take 1 tablet by mouth twice daily as needed HYDROcodone-aceta minophen ([place]) 5-325 mg tablet TAKE 1 TABLET BY MOUTH TWICE DAILY NEEDED FOR 7 DAYS 05/26/2023 Active Start: 07-09-2020 End: 07-23-2020 take 1 tablet by mouth every four hours as needed Hydrocodone-Acetaminophen Discontinued 1 TABLET PO EVERY 4 HOURS NEEDED 10 July 09, 2020 July 23, 2020 1:34pm [id number] 200 actuat albuterol 0.09 mg/actuat metered dose inhaler (20 sources) beta2-Adrenergic Agonist Start: 10-09-2024 take 2 puff(s) by mouth every six hours as needed for wheezing albuterol 108 (90 Base) MCG/ACT inhaler Inhale 2 puffs by mouth every 6 hours as needed for wheezing. 8.5 g 2 10/09/2024 Active Start: 03-22-2024 End: 10-09-2024 take 2 puff(s) by inhalation every six hours as needed for wheezing albuterol 108 (90 Base) MCG/ACT inhaler Inhale 2 puffs every 6 hours as needed for wheezing. 18 g 3 03/22/2024 10/09/2024 Discontinued Start: 02-27-2024 End: 03-22-2024 take 2 puff(s) by mouth every six hours as needed for wheezing albuterol 108 (90 Base) MCG/ACT inhaler INHALE 2 PUFFS BY MOUTH EVERY 6 HOURS NEEDED FOR WHEEZING 18 g 02/27/2024 03/22/2024 Discontinued (Reorder) Start: 09-02-2023 End: 02-03-2024 take 2 puff(s) by mouth every six hours as needed for wheezing albuterol 108 (90 Base) MCG/ACT inhaler INHALE 2 PUFFS BY MOUTH EVERY 6 HOURS NEEDED FOR SHORTNESS OF BREATH OR WHEEZING 18 g 09/02/2023 02/03/2024 Discontinued (Reorder) Start: 08-25-2023 albuterol 2.5 mg /3 mL (0.083 %) 2.5 mg (PROVENTIL) Start: 05-17-2023 take 2 puff(s) by in halation every six hours albuterol 90 mcg/actuation inhaler Inhale 2 puffs every 6 hours if needed. 05/17/2023 Active Start: 05-17-2023 End: 08-11-2023 take 2 puff(s) by mouth every six hours as needed for wheezing albuterol 108 (90 Base) MCG/ACT inhaler INHALE 2 PUFFS BY MOUTH EVERY 6 HOURS NEEDED FOR WHEEZING OR SHORTNESS OF BREATH 18 g 05/17/2023 08/11/2023 Discontinued Start: 03-02-2023 End: 03-01-2024 take 2 puff(s) by inhalation every six hours as needed for wheezing albuterol (Ventolin HFA) 108 (90 Base) MCG/ACT inhaler Inhale 2 puffs every 6 hours as needed for wheezing or shortness of breath. 18 g 2 03/02/2023 05/17/2023 Discontinued Start: 10-15-2021 End: 10-21-2022 albuterol 0.63 MG/3ML nebuli zer solution Take 3 mL by nebulization every 6 hours as needed. 0 10/15/2021 10/21/2022 Discontinued Start: 07-23-2020 take 1 puff(s) by in halation every six hours Albuterol Sulfate Active 1 PUFF INHALATION EVERY 6 HOURS July 23, 2020 12:00am Start: 04-18-2019 [id number] Medicat ion albuterol sulfate albuterol sulfate 0.63 mg/3 mL 04/18/2019 Active (Outside) Start: 07-17-2017 End: 10-21-2022 take 2 puff(s) by inhalation every six hours albuterol 90 mcg/actuation inhaler Inhale 2 puffs every 6 hours if needed. 05/17/2023 Active Start: 04-04-2016 End: 07-23-2020 Albuterol Sulfate Discontinu ed 2 INHALER INHALATION NEEDED April 04, 2016 1:00am July 23, 2020 1:33pm Comment on above: Inhale 2 Puffs as in structed every 6 hours as needed. allopurinol 300 mg oral tablet (20 sources) Xanthine Oxidase Inhibitor Start: take 0.5 tablet by mouth once daily allopurinol (Zyloprim) 300 MG tablet Take 0.5 tablets (150 mg) by mouth daily. 45 tablet 1 09/10/2024 Active Start: 12-31-2021 End: 03-22-2024 take 0.5 tablet by mouth once daily allopurinol (Zyloprim) 300 MG tablet Take 0.5 tablets (150 mg) by mouth daily. 45 tablet 1 09/10/2024 Active Start: 12-25-2020 take 0.5 tablet by m outh once daily allopurinol (ZYLOPRIM) 100 mg tablet Take 0.5 tablets by mouth once daily. For gout. 0 12/25/2020 Active Start: 07-09-2020 take 150 mg by mouth once elias y Allopurinol Active 150 MG PO DAILY July 09, 2020 12:00am Comment on above: Take 0.5 tablets by mouth once daily. For gout. TAKE 1/2 (ONE-HALF) TABLET BY MOUTH IN THE MORNING amoxicillin 875 mg / clavulanate 125 mg oral tablet (1 source) Penicillin-class Antibacterial Start: 05-11-19 End: 05-16-19 take 1 tablet by mouth twice daily amoxicillin-clavu lanic acid (AUGMENTIN) 875-125 mg per tablet Indications: Bacterial sinusitis Take 1 tablet by mouth twice daily for 5 days. 10 tablet 0 05/10/2022 05/15/2022 Active Comment on above: Take 1 tablet by theodore twice daily for 5 days. atropine sulfate 0.025 mg / diphenoxylate hydrochloride 2.5 mg oral tablet (3 sources) Anticholinergic, Cholinergic Muscarinic Antagonist, Antidiarrheal Start: 10-22-19 End: 10-29-19 take 1 tablet by mouth four times daily as needed for diarrhea diphenoxylate-atr opine (Lomotil) 2.5-0.025 MG tablet Indications: Diarrhea in adult patient Take 1 tablet by mouth 4 times daily as needed for diarrhea for up to 7 days. 28 tablet 0 10/21/2022 10/28/2022 Active Start: 06-18-2022 End: 06-25-2022 take 1 tablet by mouth four times daily as needed for diarrhea diphenoxylate-atropine (Lomotil) 2.5-0.025 MG tablet Indications: Diarrhea in adult patient Take 1 tablet by mouth 4 times daily as needed for diarrhea for up to 7 days. 28 tablet 0 06/18/2022 06/25/2022 Active azithromycin 250 mg oral tablet (20 sources) Macrolide Antimicrobial Start: 05-10-2024 azithromycin (Zithromax Z-Alex) 250 MG tablet Take as directed 6 tablet 05/10/2024 Active Start: 05-20-2023 take 2 tablets by mo uth once daily Azithromycin (Zithromax Z-Alex) 250 mg tablet Active 250 MG PO DAILY 05 18May 20, 2023 12:00am start on day 2 of therapy baclofen 10 mg oral tablet (20 sources) gamma-Aminobutyric Acid-ergic Agonist Start: 09-17-2024 take 1 tablet by mouth three times daily baclofen (Lioresal) 10 MG tablet Take 1 tablet by mouth three times daily. 90 tablet 09/17/2024 Active Start: 09-22-2023 End: 10-06-2023 take 1 tablet by mouth three times daily baclofen 15 mg tablet Take 1 tablet (15 mg) by mouth three times a day for 14 days. 42 tablet 09/22/2023 10/06/2023 Active Start: 09-22-2023 End: 10-06-2023 take 1 tablet by mouth three times daily baclofen 15 mg tablet Take 1 tablet (15 mg) by mouth three times a day for 14 days. 42 tablet 0 09/22/2023 10/06/2023 Active Start: 08-25-2023 End: 09-09-2023 take 1 tablet by mouth three times daily baclofen 15 mg tablet Take 1 tablet (15 mg) by mouth three times a day for 14 days. 42 tablet 0 08/25/2023 09/09/2023 Active Start: 08-25-2023 End: 09-08-2023 take 1 tablet by mouth three times daily baclofen 15 mg tablet Take 1 tablet (15 mg) by mouth three times a day for 14 days. 42 tablet 0 08/25/2023 09/08/2023 Active Start: 09-30-2021 End: 07-10-2024 take 1 tablet by mouth three times daily baclofen (Lioresal) 10 MG tablet Take 1 tablet by mouth three times daily. 90 tablet 07/10/2024 Active End: 08-25-2023 baclofen 15 mg tablet Take 1 0 mg by mouth as needed. 0 08/25/2023 Discontinued baclofen 15 mg t ablet Take 10 mg by mouth as needed. 0 Active benzoyl peroxide 50 mg/ml topical lotion (6 sources) Start: 04-18-2019 [id number] Medicat ion benzoyl peroxide 5 % topical cleanser benzoyl peroxide 5 % topical cleanser 5 % 1 Application topically as directed 04/18/2019 Active (Current) 60 actuat budesonide 0.08 mg/actuat / formoterol fumarate 0.0045 mg/actuat metered dose inhaler (20 sources) Corticosteroid, beta2-Adrenergic Agonist Start: 03-22-2024 take 2 puff(s) by mouth twice daily Symbicort 80-4.5 MCG/ACT inhaler Inhale 2 puffs 2 times daily. Rinse mouth with water after use to reduce aftertaste and incidence of candidiasis. Do not swallow. 33 g 2 03/22/2024 Active Start: 08-11-2023 End: 03-22-2024 Symbicort 80-4.5 MCG/ACT inh aler INHALE 2 PUFFS BY MOUTH IN THE MORNING AND 2 IN THE EVENING 33 g 2 10/10/2023 03/22/2024 Discontinued (Reorder) Start: 01-31-2022 take 2 puff(s) by in halation twice daily budesonide-formoterol (SYMBICORT) 80-4.5 mcg/actuation inhaler Inhale 2 Puffs as instructed twice daily. 01/31/2022 Active Start: 01-31-2022 take 2 puff(s) by in halation twice daily budesonide-formoteroL (Symbicort) 80-4.5 mcg/actuation inhaler Inhale 2 puffs twice a day. 01/31/2022 Active Start: 01-31-2022 take 2 puff(s) by in halation twice daily budesonide-formoterol (SYMBICORT) 80-4.5 mcg/actuation inhaler Inhale 2 Puffs as instructed twice daily. 0 01/31/2022 Active Start: 12-31-2021 End: 08-11-2023 take 2 puff(s) by inhalation in the morning budesonide-formoterol (Symbicort) 80-4.5 MCG/ACT inhaler Inhale 2 puffs in the morning and 2 puffs in the evening. 3 each 1 08/19/2022 08/11/2023 Discontinued Comment on above: Inhale 2 Puffs as in structed twice daily. chlorthalidone 25 mg oral tablet (20 sources) Thiazide-like Diuretic Start: 03-22-19 End: 10-10-19 take 1 tablet by mouth every other day chlorthalidone (Hygroton) 25 MG tablet Take 1 tablet by mouth every other day. 45 tablet 10/09/2024 Active Start: 02-06-2024 End: 03-22-2024 take 1 tablet by mouth once daily chlorthalidone (Hygroton) 25 MG tablet Take 1 tablet (25 mg) by mouth daily. 90 tablet 02/06/2024 03/22/2024 Discontinued (Reorder) Start: 07-28-2023 End: 02-03-2024 take 1 tablet by mouth once daily chlorthalidone (Hygroton) 25 MG tablet Take 1 tablet by mouth once daily 90 tablet 10/10/2023 02/03/2024 Discontinued (Reorder) cholecalciferol 1.25 mg oral capsule (20 sources) Vitamin D Start: 02-06-2024 cholecalcifero l (Vitamin D-3) 1.25 MG (88822 UT) capsule Take 1 capsule (1.25 mg) by mouth every 7 days. 12 capsule 02/06/2024 Active Start: 03-16-2023 cholecalcifero l (Vitamin D-3) 50,000 unit capsule Take 1 capsule (50,000 Units) by mouth. 03/16/2023 Active Start: 12-31-2021 End: 02-03-2024 take 1 capsule by mouth every week cholecalciferol (Vitamin D-3) 1.25 MG (37267 UT) capsule Take 1 capsule by mouth once a week 12 capsule 01/04/2024 02/03/2024 Discontinued (Reorder) Start: 12-25-2020 take 1 capsule by mo uth every week cholecalciferol, Vitamin D3, (VITAMIN D3) 1,250 mcg (50,000 unit) cap capsule Take 1 capsule by mouth one time a week. 12/25/2020 Active Start: 07-23-2020 take 22361 [IU] by mouth once Cholecalciferol (Vitamin D3) Active 63365 UNIT PO MO July 23, 2020 12:00am Start: 04-18-2019 [id number] Medicat ion cholecalciferol (vitamin D3) 10 mcg (400 unit) tablet Vitamin D3 10 mcg (400 unit) 04/18/2019 Active (Outside) Comment on above: Take 1 capsule by mo [facility] one time a week. citalopram 40 mg oral tablet (20 sources) Serotonin Reuptake Inhibitor Start: 10-23-2024 take 1 tablet by mouth once daily citalopram (CeleXA) 40 MG tablet Take 1 tablet (40 mg) by mouth daily. 90 tablet 1 10/23/2024 Active Start: 03-22-2024 End: 10-09-2024 take 1 tablet by mouth once daily citalopram (CeleXA) 20 MG tablet Take 1 tablet by mouth daily. 90 tablet 10/09/2024 Active Start: 01-31-2023 End: 03-22-2024 take 1 tablet by mouth once daily citalopram (CeleXA) 40 MG tablet Take 1 tablet by mouth once daily 90 tablet 03/01/2024 03/22/2024 Discontinued Start: 03-05-2022 End: 08-18-2022 take 1 tablet by mouth once daily citalopram (CeleXA) 40 MG tablet Take 1 tablet (40 mg) by mouth daily. 90 tablet 1 08/19/2022 Active Start: 12-31-2021 End: 03-05-2022 take 1 tablet by mouth in the morning citalopram (CeleXA) 20 MG tablet Take 1 tablet (20 mg) by mouth in the morning. 90 tablet 1 12/31/2021 03/05/2022 Discontinued (Reorder) Start: 04-18-2019 630255 Medicat ion citalopram citalopram 40 mg 04/18/2019 Active (Outside) Start: 04-04-2016 take 20 mg by mouth once daily Citalopram Active 20 MG PO DAILY April 04, 2016 1:00am take 30 mg by mouth once daily c italopram hydrobromide (CELEXA ORAL) Take 30 mg by mouth once daily. Active take 30 mg by mouth once daily c italopram hydrobromide (CELEXA ORAL) Take 30 mg by mouth once daily. 0 Active Comment on above: Take 30 mg by mouth once daily. clindamycin 0.01 mg/mg topical gel (20 sources) Lincosamide Antibacterial Start: 02-06-2024 clindamycin 1 % gel Apply topically 2 times daily. 30 g 2 02/06/2024 Active Start: 02-06-2024 clindamycin (C leocin T) 1 % gel APPLY THIN LAYER TOPICALLY TWICE DAILY 02/06/2024 Active Start: 12-23-2021 End: 02-03-2024 clindamycin (Clindagel) 1 % gel 12/23/2021 02/03/2024 Discontinued (Reorder) Start: 04-10-2020 [id number] Medicat ion clindamycin 1 % topical gel clindamycin 1 % topical gel 1 % 1 Application topically in the morning 04/17/2021 Active (Current) Start: 05-18-2019 178060 Medicat ion clindamycin 1 % topical gel clindamycin 1 % topical gel 1 % 1 Application topically daily 05/18/2019 Prior History No Longer Active Start: 04-18-2019 [id number] Medicat ion clindamycin 1 % lotion clindamycin 1 % lotion 1 % 1 Application topically daily 04/18/2019 Discontinued docusate sodium 100 mg oral capsule (5 sources) Start: 08-25-2023 End: 09-08-2023 take 1 capsule by mouth twice daily docusate sodium (COLACE) 100 mg capsule Take 1 capsule by mouth two times a day for 14 days. 28 capsule 0 08/25/2023 09/08/2023 Active doxycycline monohydrate 50 mg oral capsule (20 sources) Tetracycline- class Drug Start: 02-29-2024 End: 04-29-2024 take 1 capsule by mouth twice daily doxycycline (Monodox) 50 MG capsule Take 50 mg by mouth twice a day. 02/29/2024 04/29/2024 Active Start: 07-29-2021 [id number] Medica tion doxycycline monohydrate 50 mg capsule doxycycline monohydrate 50 mg capsule 50 mg 1 Capsule as directed twice a day 07/29/2021 Discontinued Start: 04-18-2019 973230 Medicat ion doxycycline hyclate doxycycline hyclate 100 mg 04/18/2019 Active (Outside) Start: 04-18-2019 take 1 capsule by [facility] twice daily [id number] Medication doxycycline monohydrate 100 mg capsule doxycycline monohydrate 100 mg capsule 100 mg 1 Capsule by mouth twice a day 05/24/2019 Prior History No Longer Active fluticasone propionate 0.05 mg/actuat metered dose nasal spray (20 sources) Corticosteroid Start: 09-17-2024 End: 12-05-2024 take 2 spray(s) nasal route once daily fluticasone (Flonase) 50 MCG/ACT nasal spray Instill 2 sprays into each nostril daily. Shake gently. Before first use, prime pump. After use, clean tip and replace cap. 16 g 5 12/05/2024 Active Start: 01-31-2023 End: 03-22-2025 take 2 spray(s) nasal route once daily fluticasone (Flonase) 50 MCG/ACT nasal spray Administer 2 sprays into each nostril daily. Shake gently. Before first use, prime pump. After use, clean tip and replace cap. 16 g 5 03/22/2024 03/22/2025 Active Start: 12-11-2020 fluticasone (F LONASE) 50 mcg/actuation nasal spray Start: 10-30-2020 Fluticasone Pr opionate Active 1 SPRAY INTRANASAL DAILY October 30, 2020 12:00am take 2 spray(s) nasa l route once daily fluticasone (Flonase) 50 mcg/actuation nasal spray INSTILL 2 SPRAYS IN EACH NOSTRIL DAILY. SHAKE GENTLY. BEFORE FIRST USE, PRIME PUMP. AFTER USE, CLEAN TIP AND REPLACE CAP Active fluticasone prp-sod.chl,bica rb 50 mcg- 0.9 % ksps (15 sources) fluticasone prp- sod.chl,bicarb 50 mcg- 0.9 % ksps Use 2 Sprays in the nose once daily. Active fluticasone prp- sod.chl,bicarb 50 mcg- 0.9 % ksps Use 2 Sprays in the nose once daily. 0 Active ivermectin 10 mg/ml topical cream (20 sources) Antiparasitic, Pediculicide Start: 03-19-2024 ivermectin 1 % cream Indications: Rosacea Apply 1 Application topically once daily. 45 g 9 03/19/2024 Active ketorolac tromethamine 10 mg oral tablet (5 sources) Nonsteroidal Anti-inflammatory Drug, Cyclooxygenase Inhibitor Start: 08-25-2023 End: 08-30-2023 take 1 tablet by mouth every six hours as needed keTORolac (TORADOL) 10 mg tablet Take 1 tablet by mouth every 6 hours as needed for up to 5 days. 20 tablet 0 08/25/2023 08/30/2023 Active Start: 08-25-2023 End: 08-25-2023 keTORolac 15 mg injection (T oradol) LORazepam 0.5 mg oral tablet (20 sources) Benzodiazepine Start: 10-22-2024 End: 11-21-2024 take 1 tablet by mouth twice daily as needed for anxiety LORazepam (Ativan) 0.5 MG tablet Indications: Anxiety Take 1 tablet (0.5 mg) by mouth 2 times daily as needed for anxiety. 60 tablet 10/22/2024 11/21/2024 Active Start: 04-26-2022 End: 09-07-2024 take 1 tablet by mouth twice daily as needed for anxiety LORazepam (Ativan) 0.5 MG tablet Indications: Anxiety Take 1 tablet (0.5 mg) by mouth 2 times daily as needed for anxiety. 60 tablet 08/08/2024 Active Start: 03-05-2022 End: 04-04-2022 take 1 tablet by mouth twice daily as needed for anxiety LORazepam (Ativan) 0.5 MG tablet Indications: Anxiety Take 1 tablet (0.5 mg) by mouth 2 times daily as needed for anxiety. 60 tablet 0 03/05/2022 04/04/2022 Active meloxicam 15 mg oral tablet (20 sources) Nonsteroidal Anti-inflammatory Drug Start: 09-17-2024 take 1 tablet by mouth once daily meloxicam (Mobic) 15 MG tablet Take 1 tablet by mouth daily. 90 tablet 1 09/17/2024 Active Start: 12-31-2021 End: 03-22-2024 take 1 tablet by mouth once daily meloxicam (Mobic) 15 MG tablet Take 1 tablet (15 mg) by mouth daily. 90 tablet 1 03/22/2024 Active Start: 12-25-2020 take 0.5 tablet by m outh twice daily meloxicam (MOBIC) 15 mg tablet Take 0.5 tablets by mouth twice daily. 12/25/2020 Active Start: 07-23-2020 take 5 mg by mouth twice daily Meloxicam Active 5 MG PO TWICE A DAY July 23, 2020 12:00am Comment on above: Take 0.5 tablets by mouth twice daily. methylPREDNISolone (1 source) Corticosteroid Start: 2023 End: 2023 methylPREDNISolone (MEDROL, ALEX,) 4 mg Dose-Pack As instructed per package 21 tablet 0 09/22/2023 09/28/2023 Active minocycline 50 mg oral capsule (7 sources) Tetracycline-class Drug Start: 2024 End: 2024 take 1 capsule by mouth twice daily minocycline 50 mg capsule Indications: Hidradenitis suppurativa , Rosacea Take 1 capsule (50 mg) by mouth 2 times a day. 180 capsule 10/17/2024 01/15/2025 Active Start: 04-18-201919780917 Medicat ion minocycline minocycline 100 mg 04/18/2019 Active (Outside) molnupiravir 200 mg capsule (1 source) Start: 05-02-2022 End: 05-07-2022 take 4 capsules by mouth twice daily molnupiravir 200 mg capsule Indications: Positive self-administered antigen test for COVID-19 Take 4 capsules by mouth twice daily for 5 days. 40 capsule 0 05/02/2022 05/07/2022 Active Comment on above: Take 4 capsules by m outh twice daily for 5 days. omeprazole 20 mg delayed release oral capsule (20 sources) Proton Pump Inhibitor Start: 02-06-2024 End: 03-22-2024 take 1 capsule by mouth twice daily before mealtime omeprazole (PriLOSEC) [address] capsule Take 1 capsule (20 mg) by mouth 2 times daily (before meals). 180 capsule 02/06/2024 03/22/2024 Discontinued (Reorder) Start: 04-18-201920020325 Medicat ion omeprazole omeprazole 40 mg 04/18/2019 Active (Outside) Start: 01-28-2019 End: 10-09-2024 take 1 capsule by mouth once daily omeprazole (PriLOSEC) [address] capsule Take 1 capsule by mouth daily. 90 capsule 10/09/2024 Active Comment on above: Take 1 capsule by mo [facility] once daily. oxyCODONE hydrochloride 5 mg oral tablet (5 sources) Opioid Agonist Start: 4 End: 4 take 1 tablet by mouth every six hours as needed oxyCODONE IR (ROXICODONE) 5 mg immediate release tablet Indications: Spinal stenosis of lumbar region with neurogenic claudication Take 1-2 tablets by mouth every 6 hours as needed for up to 7 days. 56 tablet 0 08/25/2023 09/01/2023 Active pravastatin sodium 40 mg oral tablet (20 sources) HMG-CoA Reductase Inhibitor Start: 1 take 1 tablet by mouth once daily pravastatin (PRAVACHOL) 20 mg tablet Take 1 tablet by mouth once daily. 12/25/2020 Active Start: 04-18-2019 take 1 tablet by the[facility]ore once daily pravastatin (Pravachol) 40 mg tablet Take 1 tablet (40 mg) by mouth once daily. 10/01/2021 Active Start: 01-28-2019 take 40 mg by mouth once daily Pravastatin Active 40 MG PO DAILY January 28, 2019 1:00am Comment on above: Take 1 tablet by theodore once daily. rosuvastatin calcium 40 mg oral tablet (20 sources) HMG-CoA Reductase Inhibitor Start: 2 End: 5 take 1 tablet by mouth once daily rosuvastatin (Crestor) 40 MG tablet Take 1 tablet by mouth daily. 90 tablet 10/09/2024 Active Comment on above: Take 40 mg by mouth once daily. 1 ml secukinumab 150 mg/ml auto-injector (20 sources) Interleukin-17A Antagonist Start: Cosentyx Sensoready, 300 MG, 150 MG/ML solution auto-injector 02/14/2024 Active Start: 10-13-2023 secukinumab (C osentyx) 150 mg/mL self-injector pen Indications: Hidradenitis suppurativa Inject 300mg subcutaneously at weeks 0, 1, 2, 3, and 4. 10 mL 11/04/2023 10:19 AM EDT 10/13/2023 Active Start: 10-13-2023 secukinumab (C osentyx) 150 mg/mL self-injector pen Indications: Hidradenitis suppurativa Inject 2 mL (300 mg) under the skin once monthly 4 mL 11 10/11/2024 9:18 AM EDT 10/13/2023 Active sulfamethoxazole 800 mg / trimethoprim 160 mg oral tablet (6 sources) Dihydrofolate Reductase Inhibitor Antibacterial, Sulfonamide Antimicrobial Start: 10-12-2023 End: 10-22-2023 take 1 tablet by mouth twice daily sulfamethoxazole-trimethoprim (Bactrim DS) 800-160 mg tablet Indications: Local infection of skin and subcutaneous tissue Take 1 tablet by mouth 2 times a day for 10 days. 20 tablet 10/12/2023 10/22/2023 Active Start: 07-30-2021 [id number] Medicat ion sulfamethoxazole 400 mg-trimethoprim 80 mg tablet Bactrim 400 mg-80 mg tablet 400-80 mg 1 Tablet as directed twice a day 07/30/2021 Prior History No Longer Active Start: 01-28-2019 End: 07-23-2020 Sulfamethoxazole-Trimethopri m Discontinued 1 EACH PO TWICE A DAY January 28, 2019 1:00am July 23, 2020 1:30pm traMADol hydrochloride 50 mg oral tablet (20 sources) Opioid Agonist Start: 06-21-2023 End: 03-22-2024 traMADol (Ultram) 50 mg tablet 06/21/2023 Active Start: 06-21-2023 End: 09-08-2023 traMADol (Ultram) 50 MG tabl et 06/21/2023 Active Zinc (20 sources) Start: 10-30-2020 take 100 mg by mouth once daily Zinc Active 100 MG PO DAILY October 30, 2020 12:00am Start: 10-30-2020 take 100 mg by mouth once daily Zinc Active 100 MG PO DAILY October 29, 2020 11:00pm End: 09-22-2022 zinc 100 MG tablet Take by m outh. 0 09/22/2022 Discontinued (Med list cleanup) zinc 100 MG tabl et Take by mouth. 0 Active Completed/Discontinued Medications Medication Drug Class(es) Dates Sig (Normalized) Sig (Original) acetaminophen 325 mg oral tablet (2 sources) Start: 08-25-2023 End: 08-25-2023 acetaminophen 650 mg tab(s) (TYLENOL) Start: 08-25-2023 End: 08-25-2023 acetaminophen 1,000 mg tab(s ) (TYLENOL) 0.4 ml adalimumab 100 mg/ml pen injector (20 sources) Tumor Necrosis Factor Mark Start: 12-17-2021 End: 03-22-2024 Humira Pen 40 MG/0.4ML Pen-injector Kit pen-injector 12/17/2021 03/22/2024 Discontinued (Therapy completed) Start: 05-07-2019 End: 05-03-2024 HUMIRA,CF, PEN 40 mg/0.4 mL pen kit Inject 40 mg subcutaneously one time a week. Mondays12/11/2020 Active Start: 05-07-2019 [id number] Medica tion adalimumab 80 mg/0.8 mL subcutaneous pen kit Humira(CF) Pen 80 mg/0.8 mL subcutaneous kit 80 mg/0.8 mL 1 Pen Needle subcutaneously as directed 05/07/2019 Discontinued amLODIPine 10 mg oral tablet (20 sources) Dihydropyridine Calcium Channel Mark Start: 02-28-2023 End: 07-28-2023 take 1 tablet by mouth once daily amLODIPine (Norvasc) 10 MG tablet Take 1 tablet by mouth once daily 90 tablet 0 07/14/2023 07/28/2023 Discontinued (Alternate therapy) Start: 01-31-2023 End: 02-26-2023 take 1 tablet by mouth once daily amLODIPine (Norvasc) 10 MG tablet Take 1 tablet (10 mg) by mouth daily. 30 tablet 0 01/31/2023 02/26/2023 Discontinued (Reorder) benzonatate 100 mg oral capsule (4 sources) Non-narcotic Antitussive Start: 05-02-2022 End: 05-20-2022 take 1 capsule by mouth three times daily as needed for cough benzonatate (TESSALON PERLES) 100 mg capsule Indications: Positive self-administered antigen test for COVID-19 Take 1 capsule by mouth three times daily as needed for cough. 40 capsule 0 05/02/2022 Active Comment on above: Take 1 capsule by [facility] three times daily as needed for cough. Take 1-2 capsules by mouth three times daily as needed for cough for up to 10 days. betamethasone 3 mg/ml / betamethasone acetate 3 mg/ml injectable suspension (8 sources) Corticosteroid Start: 10-17-2024 End: 10-17-2024 betamethasone acetate-betamethasone sodium phosphate (Celestone) injection 12 mg Start: 10-17-2024 End: 10-17-2024 12 mg, Intra-artICUlar, Once , On 10/17/24 at 1330, For 1 dose Start: 07-12-2024 End: 07-12-2024 betamethasone acetate-betame thasone sodium phosphate (Celestone) injection 12 mg Start: 07-12-2024 End: 07-12-2024 12 mg, Intra-artICUlar, Once , On Grace 07/12/24 at 1200, For 1 dose calcium chloride 0.0014 meq/ ml / potassium chloride 0.004 meq/ml / sodium chloride 0.103 meq/ml / sodium lactate 0.028 meq/ml injectable solution (1 source) Start: 08-25-2023 End: 08-26-2023 lactated ringers iv infusion Cannabinoids (medical cannab is) (20 sources) End: 10-21-2022 Cannabinoids (medical cannab is) Take by mouth. 0 10/21/2022 Discontinued End: 09-22-2022 Cannabinoids (medical cannab is) Take by mouth. 0 09/22/2022 Discontinued (Med list cleanup) Cannabinoids (me dical cannabis) Take by mouth. 0 Active cyclobenzaprine hydrochloride 10 mg oral tablet (20 sources) Muscle Relaxant Start: 02-06-2024 End: 03-22-2024 take 1 tablet by mouth three times daily as needed for muscle spasms cyclobenzaprine (Flexeril) 10 MG tablet Indications: Acute right-sided low back pain with right-sided sciatica Take 1 tablet (10 mg) by mouth 3 times daily as needed for muscle spasms. 30 tablet 02/06/2024 03/22/2024 Discontinued (Therapy completed) Start: 05-11-2023 End: 07-28-2023 take 1 tablet by mouth every eight hours as needed cyclobenzaprine (Flexeril) 10 mg tablet Take 1 tablet (10 mg) by mouth every 8 hours if needed. 05/11/2023 Active Start: 12-25-2020 End: 02-03-2024 take 1 tablet by mouth three times daily as needed for muscle spasms cyclobenzaprine (Flexeril) 10 MG tablet Indications: Acute right-sided low back pain with right-sided sciatica Take 1 tablet by mouth three times daily as needed for muscle spasm 30 tablet 08/11/2023 02/03/2024 Discontinued (Reorder) Comment on above: Take 1 tablet by theodore th three times daily as needed for muscle spasm. Dextromethorphan / guaiFENesin (2 sources) Uncompetitive S-nslwzm-T-aspartate Receptor Antagonist, Sigma-1 Agonist Start : 05-10 DM-GG/[id number] taminophen (CORICIDIN HBP DAY-NIGHT) 10-200 mg(dy)/2 -15-500 mg(nt) TCSq Indications: cough , nasal congestion , rhinorrhea Per box instructions 0 05/10/2022 Active Comment on above: Per box instructions diphenhydrAMINE (1 source) Histamine-1 Receptor Antagonist Start : 08-24 End: 08-25 take 50 mg intravenously every four hours as needed diphenhydrAMINE 50 mg injection (BENADRYL) ergocalciferol 1.25 mg oral capsule (3 sources) Provitamin D2 Compound Start : 12-31 End: 03-19 take 1 capsule by mouth every week ergocalciferol (Vitamin D2) 1.25 MG (24710 UT) capsule Take 1 capsule by mouth 1 (one) time per week. 0 12/31/2021 03/19/2022 Discontinued 1 ml fentaNYL 0.05 mg/ml injection (1 source) Opioid Agonist Start : 08-24 End: 08-25 fentaNYL 50 mcg/mL 50 mcg injection (SUBLIMAZE) 0.5 ml HYDROmorphone hydrochloride 1 mg/ml prefilled syringe (1 source) Opioid Agonist Start : 08-24 End: 08-25 HYDROmorphone 0.2 mg injection (DILAUDID) ipratropium bromide 0.021 mg/actuat metered dose nasal spray (2 sources) Anticholinergic Start : 05-10 End: 05-20 Ipratropium [place] (ATROVENT) 21 mcg (0.03 %) nasal spray Indications: Acute cough , Bacterial sinusitis Use 2 Sprays in the nose every 12 hours for 10 days. 4 mL 0 05/10/2022 Active Comment on above: Use 2 Sprays in the nose every 12 hours for 10 days. 10 ml lidocaine hydrochloride 10 mg/ml injection (8 sources) Antiarrhythmic, Amide Local Anesthetic Start : 10-17 End: 10-17 lidocaine (Xylocaine) 1 % injection 4 mL Start: 10-17-2024 End: 10-17-2024 4 mL, Injection, Once, On d 10/17/24 at 1330, For 1 dose Start: 07-12-2024 End: 07-12-2024 lidocaine (Xylocaine) 1 % in jection 4 mL Start: 07-12-2024 End: 07-12-2024 4 mL, Injection, Once, On u 07/12/24 at 1200, For 1 dose lisinopril 30 mg oral tablet (20 sources) Angiotensin Converting Enzyme Inhibitor Start: 11-08-2023 End: 03-22-2024 take 2 tablets by mouth once daily lisinopril 30 MG tablet Take 2 tablets by mouth once daily 60 tablet 3 11/08/2023 03/22/2024 Discontinued (Therapy completed) Start: 05-11-2023 End: 08-11-2023 take 2 tablets by mouth once daily lisinopril 30 MG tablet Take 2 tablets by mouth once daily 60 tablet 2 08/11/2023 Active Start: 02-15-2023 take 2 tablets by [facility] once daily lisinopril 30 MG tablet Take 2 tablets by mouth once daily 60 tablet 2 02/15/2023 Active Start: 04-26-2022 End: 08-18-2022 take 2 tablets by mouth once daily lisinopril 30 MG tablet Take 2 tablets (60 mg) by mouth daily. 60 tablet 3 08/19/2022 Active Start: 12-31-2021 End: 04-01-2022 take 1 tablet by mouth in the morning lisinopril 30 MG tablet Take 1 tablet (30 mg) by mouth in the morning. 30 tablet 1 12/31/2021 04/01/2022 Discontinued (Reorder) Start: 01-28-2019 [id number] Medicat ion lisinopril lisinopril 20 mg 04/18/2019 Active (Outside) Start: 01-28-2019 take 60 mg by mouth once daily Lisinopril Active 60 MG PO DAILY January 28, 2019 1:00am Comment on above: Take 20 mg by mouth once daily. loratadine 10 mg oral capsule (20 sources) End: 07-28-19 Loratadine 10 MG capsule Take 10 mg by mouth. 07/28/2023 Discontinued (Therapy completed) Meperidine (1 source) Opioid Agonist Start: 08-25-19 End: 08-26-19 meperidine (PF) 12.5 mg injection (DEMEROL) 10 ml methocarbamol 100 mg/ml injection (1 source) Muscle Relaxant Start: 08-25-19 End: 08-25-19 methocarbamol 1 g injection (ROBAXIN) Ondansetron (1 source) Serotonin-3 Receptor Antagonist Start: 08-25-19 End: 08-26-19 take 1 tablet by mouth every six hours as needed ondansetron 4 mg tab(s) (ZOFRAN) predniSONE 20 mg oral tablet (15 sources) Start: 05-21-19 End: 07-28-19 take 2 tablets by mouth once daily predniSONE (Deltasone) 20 MG tablet TAKE 2 TABLETS BY MOUTH ONCE DAILY FOR 10 DAYS 05/21/2023 07/28/2023 Discontinued (Therapy completed) Start: 05-20-2023 take 40 mg by mouth once daily Prednisone Active 40 MG PO DAILY 03 12May 20, 2023 12:00am Start: 04-26-2023 End: 05-05-2023 predniSONE (Deltasone) 20 MG tablet Indications: Acute right-sided low back pain with right-sided sciatica Take 3 tabs (60mg) daily for 3 days, then take 2 tabs (40mg) daily for 3 days, then take 1 tab (20mg) daily for 3 days. 18 tablet 0 04/26/2023 05/05/2023 Active prochlorperazine 5 mg/ml injectable solution (1 source) Phenothiazine Start: 08-25-2023 End: 08-26-2023 take 10 mg intravenously every six hours as needed prochlorperazine 10 mg injection (COMPAZINE) psyllium (Metamucil) 28 % packet (6 sources) Start: 09-07-2022 End: 10-21-2022 psyllium (Metamucil) 28 % packet Indications: Diarrhea Take 1 packet (3.36 g of fiber) by mouth daily. Mix and drink with at least 8 ounces of water or juice. 30 packet 1 09/07/2022 10/21/2022 Discontinued Start: 09-07-2022 End: 09-07-2023 psyllium (Metamucil) 28 % pa cket Indications: Diarrhea Take 1 packet (3.36 g of fiber) by mouth daily. Mix and drink with at least 8 ounces of water or juice. 30 packet 1 09/07/2022 09/07/2023 Active 1000 ml sodium chloride 9 mg /ml injection (1 source) Start: 08-25-2023 End: 08-25-2023 NaCl 0.9% iv infusion Problems Active Problems Problem Classification Problem Date Documented Da te Episodic/Chronic Anxiety disorders (20 sources) Anxiety; Translations: [Anxiety disorder, unspecified] Onset: 3 03-05-2022 Chronic Asthma (20 sources) Asthma; Translations: [Unspecified asthma, uncomplicated] Onset: 2 11-30-2021 Chronic Chronic obstructive pulmonary disease and bronchiectasis (2 sources) Bronchitis; Translations: [Bronchitis, not specified as acute or chronic] 05-20-2023 Episodic Disorders of lipid metabolism (20 sources) Hypercholesterolemia; Translations: [Pure hypercholesterolemia, unspecified] Onset: 1 12-25-2020 Chronic Esophageal disorders (20 sources) Gastroesophageal reflux disease; Translations: [Gastro-esophageal reflux disease without esophagitis] Onset: 4 09-07-2022 Chronic Essential hypertension (20 sources) Malignant hypertension; Translations: [Essential (primary) hypertension] Onset: 1 12-25-2020 Chronic Fever of unknown origin (3 sources) Fever; Translations: [Fever, unspecified] 01-29-2019 Episodic Gout and other crystal arthropathies (20 sources) 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; Translations: [Idiopathic chronic gout, multiple sites, without tophus (tophi)] Onset: 3 01-20-2023 Chronic Mood disorders (20 sources) Depressive disorder; Translations: [Depression] Onset: 2 11-30-2021 Chronic Nausea and vomiting (3 sources) Nausea and vomiting; Translations: [Nausea with vomiting, unspecified] 09-09-2022 Episodic Nonmalignant breast conditions (3 sources) Breast lump; Translations: [Unspecified lump in the left breast, unspecified quadrant] 07-23-2020 Episodic Nutritional deficiencies (20 sources) Vitamin D deficiency; Translations: [Vitamin D deficiency, unspecified] Onset: 1 12-25-2020 Chronic Osteoarthritis (20 sources) Degenerative joint disease involving multiple joints; Translations: [Polyosteoarthritis, unspecified] Onset: 2 11-30-2021 Chronic Other acquired deformities (1 source) Other secondary scoliosis, lumbar region; Translations: [Other secondary scoliosis, lumbar region] Onset: 4 Chronic Other acquired deformities (2 sources) Lumbar spondylolisthesis; Translations: [Spondylolisthesis, lumbar region] 06-30-2023 Episodic Other acquired deformities (1 source) Spondylolisthesis, lumbar region; Translations: [Spondylolisthesis of lumbar region] Onset: 4 Episodic Other aftercare (1 source) Surgical follow-up; Translations: [Encounter for follow-up examination after completed treatment for conditions other than malignant neoplasm] 11-22-2023 Episodic Other aftercare (1 source) Long-term current use of drug therapy; 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] 10-17-2024 Episodic Other gastrointestinal disorders (1 source) Irritable bowel syndrome; Translations: [Irritable bowel syndrome without diarrhea] 09-07-2022 Chronic Other gastrointestinal disorders (1 source) Loose stool; Translations: [Other fecal abnormalities] Episodic Other gastrointestinal disorders (3 sources) Abdominal bloating; Translations: [Abdominal distension (gaseous)] 09-09-2022 Episodic Other inflammatory condition of skin (2 sources) Rosacea; Translations: [Rosacea, unspecified] 03-19-2024 Chronic Other inflammatory condition of skin (2 sources) Rosacea, unspecified; Translations: [Rosacea, unspecified] Onset: 5 Chronic Other liver diseases (20 sources) Steatosis of liver; Translations: [Fatty (change of) liver, not elsewhere classified] Onset: 3 09-22-2022 Chronic Other lower respiratory disease (1 source) Cough; Translations: [Acute cough] Episodic Other nervous system disorders (1 source) Right leg peripheral neuropathy; Translations: [Lesion of lateral popliteal nerve, right lower limb] 07-13-2023 Chronic Other nervous system disorders (1 source) Chronic pain syndrome; Translations: [Chronic pain syndrome] 08-24-2023 Chronic Other nervous system disorders (1 source) Lesion of lateral popliteal nerve, right lower limb; Translations: [Neuropathy of right peroneal nerve] Onset: 4 Chronic Other non-traumatic joint disorders (2 sources) Pain in right shoulder; Translations: [Pain in right shoulder] Onset: 5 Episodic Other skin disorders (20 sources) Hidradenitis suppurativa; Translations: [Hidradenitis suppurativa] Onset: 0 Episodic Other skin disorders (20 sources) Hidradenitis suppurativa; Translations: [Hidradenitis suppurativa] Onset: 0 01-28-2019 Episodic Other upper respiratory infections (1 source) Bacterial sinusitis; Translations: [Chronic sinusitis, unspecified] Chronic Paralysis (20 sources) Flaccid tetraplegia; Translations: [Quadriplegia, unspecified] Onset: 4 12-29-2021 Chronic Residual codes; unclassified (3 sources) History of operative procedure on lumbar spinal structure; Translations: [Other specified postprocedural states] 10-04-2023 Episodic Residual codes; unclassified (1 source) Other specified postprocedural states; Translations: [Status post lumbar spine operative procedure for decompression of spinal cord] Onset: 4 Episodic Skin and subcutaneous tissue infections (3 sources) Abscess of axilla; Translations: [Cutaneous abscess of right axilla] 01-29-2019 Episodic Sprains and strains (2 sources) Strain of other muscles, fascia and tendons at shoulder and upper arm level, right arm, initial encounter; Translations: [Strain of other muscles, fascia and tendons at shoulder and upper arm level, right arm, initial encounter] Onset: 5 Episodic Superficial injury; contusion (6 sources) Contusion of knee; Translations: [Contusion of unspecified knee, initial encounter] 07-09-2020 Episodic Unclassified (1 source) OPENED IN ERROR 08-02-2023 Unclassified (2 sources) Labs Only; Translations: [Labs Only] Onset: Past or Other Problems Problem Classification Problem Date Documented Da te Episodic/Chronic Abdominal pain (6 sources) Burning epigastric pain; Translations: [Epigastric pain] Onset: 09-03-2022 09-09-2022 Episodic Mood disorders (20 sources) Mood disorders Onset: 03-18-2022 Resolved: 03-22-2024 03-18-2022 Other connective tissue disease (20 sources) Spasm; Translations: [Other muscle spasm] Onset: 03-22-2024 03-22-2024 Episodic Other connective tissue disease (2 sources) Other muscle spasm; Translations: [Other muscle spasm] Onset: 03-22-2024 Episodic Other gastrointestinal disorders (20 sources) Diarrhea; Translations: [Diarrhea, unspecified] Onset: 06-18-2022 06-18-2022 Episodic Other lower respiratory disease (20 sources) Dyspnea on exertion; Translations: [Other forms of dyspnea] Onset: 07-28-2023 07-28-2023 Episodic Other non-traumatic joint disorders (6 sources) Pain in right knee; Translations: [Pain in joint, lower leg] Onset: 07-12-2024 07-12-2024 Episodic Other screening for suspected conditions (not mental disorders or infectious disease) (20 sources) Ultrasonography of breast abnormal; Translations: [Other abnormal and inconclusive findings on diagnostic imaging of breast] Onset: 01-20-2023 Episodic Residual codes; unclassified (20 sources) Dependent edema; Translations: [Edema, unspecified] Onset: 07-28-2023 07-28-2023 Episodic Spondylosis; intervertebral disc disorders; other back problems (20 sources) Acute back pain with sciatica; Translations: [Lumbago with sciatica, right side] Onset: 04-26-2023 04-26-2023 Episodic Viral infection (20 sources) COVID-19; Translations: [Other specified viral infection] Onset: 10-20-2021 Resolved: 03-05-2022 Episodic Results Test Name Value Interpretation Reference Range Facility Office Visiton 12-24-2024 Follow-up visit [id number] Dima Nice 1960 F Date Provider Department Center 12/24/2024 [id number] GUADARRAMA [facility] None Family History Problem Relation Age of Onset Heart disease Mother Comments: chf Depression Mother Immunodeficiency Mother Arthritis Mother Asthma Mother Autoimmune disease Mother COPD Mother Macular degeneration Father Celiac disease Father Crohn's disease Niece Celiac disease Niece Family Status - Relation Status Age at Mother Father Alive Niece Alive Niece Alive Level of Service:63728 OK OFFICE/OUTPATIENT ESTABLISHED LOW MDM 20 MIN Reason for Visit and Comments: Follow-up [404784] - Right Shoulder Pain Normal [facility] Progress Noteon 12-24-2024 Progress Note [facility] [address] [place] [address] [place] [address] Dept: [phone] Dept Chief Complaint Patient presents with Follow-up Right Shoulder Pain Subjective History of Present Illness: Dima Nice is a 64 y.o. right hand dominant female who presents today for evaluation of right shoulder pain. States she is building a home and doing a lot of hammering, lifting, throwing and repetitive motions with the arm and shoulder. Says about six months ago her biceps started to ache and burn. Notes the worse pain is at night and says there is no radiation of pain. Says she fell onto the shoulder about two months ago. Location: lateral and anterior Onset: 6 months Injury: yes - fall, overuse. Work related? 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 Respiratory: Breathing comfortably on room air. No respiratory distress. Skin: Warm, dry, intact. No visible rashes or erythema overlying area of focused exam. Physical Exam Musculoskeletal: Right shoulder: Tenderness present. No swelling or deformity. Normal range of motion. Normal strength. Normal pulse. Comments: Range of motion full Supraspinatus muscle strength normal with mild discomfort Infraspinatus muscle strength normal Subscapularis muscle strength normal with mild discomfort Biceps muscle strength normal Speed's test negative Hawkin's test negative Impingement test negative [place]'s test negative Sulcus test negative Scarf test negative Spurling test negative External Notes No pertinent notes available Labs No results found for: HGBA1C Lab Results Component Value Date CREATININE 0.82 03/22/2024 Imaging Images reviewed with patient today I have personally reviewed the images pertinent to the appointment today EMG/NCT N/A Procedure No procedures completed today Assessment Diagnosis Plan 1. Strain of right supraspinatus muscle, initial encounter Ambulatory referral to Physical Therapy 2. Strain of right subscapularis muscle, initial encounter Ambulatory referral to Physical Therapy 3. Acute pain of right shoulder XR shoulder 2+ views right Plan -I have discussed the treatment spectrum of the rotator cuff. From no change in treatment, to conservative treatments, to aggressive treatments including injections and surgery, and answered questions. -We will proceed with formal physical therapy. -We will hold off on subacromial injection. -We discussed range of motion exercises until therapy. -If our current course does not prove to be effective over the short term future, they will schedule a follow-up appointment to discuss and select an alternate course of therapy including possibly of further imaging or surgical referral. No follow-ups on file. Zhanna Guadarrama MD 12/25/2024 9:26 AM Please note that portions of this note may have been completed with voice recognition software. Documentation reviewed prior to signing but minor errors in manager system may have occurred. [place] [address]on 12-21-2024 36 Rx sent. Past due fo r follow-up for medication maintenance. Please assist in scheduling. Thank you. [address] 12-10-2024 36 No longer taking thi s dose. [address] 12-05-2024 36 Rx sent. Follow up a s scheduled. [facility] 36on 10-25-2024 36 Okay, thank you [facility] Pt states that she doesn't really need a refill on this at this time. She says that she only takes it at night for muscle spasms. [facility] 36on 10-23-2024 36 Refused, this medication is not to be taken every day 3 times a day [place] [id number] Prescription Request : Baclofen 10mg Tablet Last medication check: 01/20/23 Last physical exam: 03/22/24 Next scheduled appointment: 12/11/24 Last date of refill on this medication 09/17/24 (qty 90 refill 0) [facility] 36on 10-22-2024 36 Reviewed chart. Refi ll appropriate. RX sent. [facility] 36 Prescription Request : LORazepam (Ativan) 0.5 MG tablet Last medication check: 01/20/23 Last physical exam: 03/22/24 Next scheduled appointment: 12/11/24 CSA on file (date): 12/14/23 Last date of refill on this medication 08/08/24 ( qty 60 refill 0) [facility] Center T-SPOT(R).TB10-19-2024 NEGATIVE CONTROL Passed Normal [facility] Comment on above: Performed By: #### [id number] #### [facility]/[address] [place], [place] [facility] [place]: Venu Sousa M.D.,PhD PANEL A SPOT COUNT CORRECTED FOR NEG CONTROL 0 Normal [facility] Comment on above: Performed By: #### 3 [id number] #### [facility]/[place] [id number] [facility] [place] [facility] [place]: Venu Sousa M.D.,PhD PANEL B SPOT COUNT CORRECTED FOR NEG CONTROL 0 Normal [facility] Comment on above: Performed By: #### 3 [id number] #### [facility]/[place] [id number] [facility] [address] [place] [facility] [place]: Venu Sousa M.D.,PhD POSITIVE CONTROL Passed Normal [facility] Comment on above: Result Comment: For additional information, please refer to http://education.Zadspace.Displair/faq/TNI890 (This link is being provided for informational/ educational purposes only.) Performed By: #### 3 [id number] #### [facility]/[place] [address] [place] [facility] [place]: Venu Sousa M.D.,PhD T-SPOT.TB Negative Normal Negative [facility] Comment on above: Result Comment: A negative test result does not exclude the possibility of exposure to or infection with Mycobacterium tuberculosis (M. tuberculosis). Patients with recent exposure to TB infected individuals exhibiting a negative T-SPOT.TB result should be considered for retesting within 6 weeks or if other relevant clinical symptoms indicate. Results from T-SPOT.TB testing must be used in conjunction with each individual's epidemiological history, current medical status, and results of other diagnostic evaluations. The T-SPOT.TB test is qualitative and results are reported as positive, borderline, or negative, given that the test controls perform as expected. In line with the Centers for Disease Control and Prevention's 2010 recommendation to report quantitative measurements alongside the qualitative result, the laboratory provides spot counts for informational purposes only. The T-SPOT.TB test should not be interpreted as a quantitative test. Performed By: #### 3 [id number] #### [facility]/[place] [facility] [address] [facility] [place], [place] [facility] [place]: Venu Sousa M.D.,PhD Office Visiton 10-17-2024 Follow-up visit [id number] Dima Nice 1960 F Date Provider Department Center 10/17/2024 [id number] GUADARRAMA [facility] Spo None Family History Problem Relation Age of Onset Heart disease Mother Comments: chf Depression Mother Immunodeficiency Mother Arthritis Mother Asthma Mother Autoimmune disease Mother COPD Mother Macular degeneration Father Celiac disease Father Crohn's disease Niece Celiac disease Niece Family Status - Relation Status Age at Mother Father Alive Niece Alive Niece Alive Level of Service:64078 [place] OFFICE/OUTPATIENT ESTABLISHED LOW MDM 20 MIN Reason for Visit and Comments: Follow-up [859530] - Right Knee Normal [facility] Progress Noteon 10-17-2024 Progress Note [facility] [place] [address] [facility] [address] Dept: [phone] Dept Chief Complaint Patient presents with Follow-up Right Knee Subjective History of Present Illness: Dima Nice follows up today for right knee pain. States the injection she received at her last appointment was helpful and she is in less pain and can move around. She is requesting another injection today to get ahead of the pain before it get bad and is just staring to feel unstable. Since the last visit on 07/12/24, symptoms are improving, 100% better. Current symptoms are aching and sore. Still 50% better and wanting to avoid feeling as bad so is considering another injection or another treatment. She rates symptoms as a 0/10 at rest and a 7/10 at worst. 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 Respiratory: Breathing comfortably on room air. No respiratory distress. Skin: Warm, dry, intact. No visible rashes or erythema overlying area of focused exam. Physical Exam Musculoskeletal: Right knee: No swelling or deformity. Tenderness present over the medial joint line and lateral joint line. No MCL or LCL tenderness. No LCL laxity or MCL laxity. Instability Tests: Anterior drawer test negative. Posterior drawer test negative. Medial Ernestina test negative and lateral Ernestina test negative. External Notes No pertinent interval updates Labs No results found for: HGBA1C Lab Results Component Value Date CREATININE 0.82 03/22/2024 Imaging Images reviewed with patient today I have personally reviewed the images pertinent to the appointment today X-Ray Completed 07/12/24 STANDING AP VIEW BILATERAL KNEES RIGHT KNEE SERIES CLINICAL INDICATION: Pain Standing AP and PA flexed views of the bilateral knees were performed. Lateral and sunrise plain film views of the right knee were also obtained. COMPARISON: None FINDINGS: The standing AP and PA flexed views of the bilateral knees demonstrate mild degenerative spurring of the tibial spines bilaterally. No fracture or dislocation of the right knee is identified. There is no joint effusion on the lateral view. Soft tissues are unremarkable. IMPRESSION: No fracture or dislocation of the right knee is identified. Mild osteoarthritis of the bilateral knees. EMG/NCT No interval studies Procedure Procedure completed today, details below Procedure Note: We discussed risks and precautions including infection, bleeding, hypopigmentation, fat atrophy and a 1-2% chance of a steroid flare. Verbal and written consent was obtained. The right knee injection site was located, confirmed and marked, it was prepped in the usual fashion with betadine and isopropyl alcohol. 2 cc of Betamethasone (6mg/ml) and 4 cc of 1% lidocaine were placed in the, intra-articular, intracondylar space using a inferior lateral approach. The procedure was tolerated well. There were no complications with the injection. The injection site was bandaged. Assessment Diagnosis Plan 1. Primary osteoarthritis of right knee lidocaine (Xylocaine) 1 % injection 4 mL betamethasone acetate-betamethasone sodium phosphate (Celestone) injection 12 mg Ambulatory referral to Sports Medicine Plan We discussed osteoarthritis of the knee. We reviewed the spectrum of 1. Pills - everything from Tylenol, ibuprofen, Aleve, and pain medicines. We also discussed glucosamine/chondroiti n and Tumeric. 2. Physical therapy - formal physical therapy and braces. And continued exercise at home. 3. Shots - corticosteroid, hyaluronic acid, and investigational injections. 4. Surgery - total joint replacement. When appropriate. Given the amount of improvement previously received with last injections we will repeat those today and initiate process for single dose hyaluronic acid injection. No follow-ups on file. Zhanna Guadarrama MD 10/17/2024 8:42 AM Please note that portions of this note may have been completed with voice recognition software. Documentation reviewed prior to signing but minor errors in manager system may have occurred. [facility] 36on 10-09-2024 36 Prescription Request : Last medication check: 08/16/23 Last physical exam: 03/22/24 Next scheduled appointment: 10/16/24 Last date of refill on this medication 03/22/24 albuterol inhaler 18 g 3 refills Citalopram 90 and 1 refill 09/05/24 chlorathalidone 45 tablets no refill [address] 09-17-2024 36 Rx sent. Follow up a s scheduled. [address] 09-10-2024 36 Rx sent. Follow up a s scheduled. [facility] 09-05-2024 36 Prescription Request : Chlorthalidone 25mg Tablet Omeprazole 20mg Delayed-Release Capsule Last medication check: 01/20/23 Last physical exam: 03/22/24 Next scheduled appointment: 10/16/24 Last date of refill on this medication Chlorthalidone - 03/22/24 ( qty 45 refill 1) Omeprazole- 03/22/24 ( qty 90 refil 1) [facility] 2908-08-2024 29 Addended by: GAVINO ZUNIGA on: 08/08/2024 08:15 AM Modules accepted: Orders [facility] 29 Addended by: PEARL SHERIDAN on: 08/08/2024 07:54 AM Modules accepted: Orders [facility] 08-08-2024 36 Rx sent. [facility] repor t reviewed with no discrepancies. CSA signed in November 2023. Follow up as scheduled. [facility] 36 CSA Ativan 12/14/23 [place] [id number] 36 Medication name: LORazepam (Ativan) 0.5 MG tablet Medication dosage: 0.5 mg (Miligrams Monthly quantity needed: 60 How many day supply requestin days Medication route: oral (PO) Medication administration time(s): 2 times a day (BID) If taking medication PRN, reason for taking medication: N/A If this is a controlled substance do you receive this or any other controlled medication from any other doctor or facility: N/A Ordering provider: Gavino Zuniga Date of last office visit: 04/19/24 Date of next office visit: 09/17/24 Date of last refill: (see medication tab): 04/16/24 Updated/Validated preferred pharmacy: Yes Patient instructed to contact the pharmacy prior to picking up the medication: Yes [facility] 36on 08-01-2024 36 Not due for refill until September. [facility] 36 Prescription Request : Omeprazole 20mg Delayed-Release Capsule Last medication check: 01/20/23 Last physical exam: 03/22/24 Next scheduled appointment: 09/17/24 Last date of refill on this medication 03/22/24 ( qty 90 refill 1) [facility] 36on 07-25-2024 36 Patient had a Tdap 09/2021, notified patient of this. [facility] 36 Notified, no further questions. [facility] 36 Name of caller: Beatriz torrez Contact phone number: [phone] Relationship to Patient: patient Provider: Dr Chang Practice: [facility] Chief Complaint/Reason for Call: Dima called asking if there is record of her having a tetanus shot in the office ever. Please advise. Best time of day caller can be reached: any Patient advised that office/PCP has 24-48 business hours to return their call: Yes [facility] 36on 07-23-2024 36 Prescription Request : Rosuvastatin Calcium 40mg Tablet Last medication check: 01/20/23 Last physical exam: 03/22/24 Next scheduled appointment: 09/17/24 Last date of refill on this medication 03/22/24 ( qty 0- refill 1) [facility] 37on 07-12-2024 37 We discussed osteoarthritis of the knee. We reviewed the spectrum of 1. Pills - everything from Tylenol, ibuprofen, Aleve, and pain medicines. We also discussed glucosamine/chondroiti n combinations and how to perform a glucosamine trial. Additionally Tumeric can be supplemented, it is likely similar to ibuprofen and is generally safe for most people to take. Glucosamine Trial: As a treatment for arthritis, we discussed a trial of glucosamine, [id number]. We talked about using a good quality glucosamine source as the testing agent. Cosamin DS or Osteo-Bio Flex would be two of the options to pick from. For shellfish sensitive people, there is a shellfish free version of glucosamine usually marked as shellfish free or vegetarian. Write down, using as many numbers as possible, a description of when the arthritis is symptomatic ( i.e. I can go up 1 flight of stairs before my knee hurts, I can sleep 4 hours before my knee wakes me, my knee begins to hurt me at 2 p.m. on a work day ). This documentation will be kept for comparison in 3-4 months. Take the glucosamine twice daily for 3-4 months. Comparing your symptoms sheet, and see if there is improvement. Glucosamine will work in approximately 60-65% of people. If it is helping continue the supplementation. If there is no improvement you can stop the glucosamine. 2. Physical therapy - formal physical therapy and braces. The benefits of strengthening, endurance, flexibility, balancing, and proprioception. The combination of all of these to decrease joint pain. 3. Shots - corticosteroid, hyaluronic acid, and investigational injections. We discussed the episodic nature, and Band-Aid nature of cortisone. No more frequent than every 3-4 months, the potential for cortisone to soften articular cartilage with repetitive use. And the use as a bridge agent. We also discussed hyaluronic acid injection series and the potential benefits of lubrication, nourishing the cartilage, re-booting the knee capsule and the potential for 1 year of improvement. 4. Surgery - cleanup procedures as well as total joint replacement. We discussed the need to progress through conservative measures before this is a viable option. All treatment options were discussed. All questions were answered. We will continue with prn oral medication, a glucosamine trial and a HEP. We will recheck as outlined to alter therapy as needed. Here are some examples of typical rehabilitation exercises for your condition. Start each exercise slowly. Ease off the exercise if you start to have pain. Your doctor or physical therapist will tell you when you can start these exercises and which ones will work best for you. How to do the exercise Gluteus Medius Strengthening Stand facing a wall with your hands on the wall at about chest level (if needed). Keeping the toe of your affected leg straight, kick that leg to the side and slightly behind you, toe turned in. (The above picture is the wrong way) Hold for 3-5 seconds. Relax, and lower your leg back to the starting position. Repeat 8 to 12 times. As you get stronger, secure a band as resistance or tie it loosly around your ankles. Repeat steps 1-5. Quadriceps stretch If you are not steady on your feet, hold on to a chair, counter, or wall. Bend your affected leg, and reach behind you to grab the front of your foot or ankle with the hand on the same side. For example, if you are stretching your right leg, use your right hand. Keeping your knees next to each other, pull your foot toward your buttock until you feel a gentle stretch across the front of your hip and down the front of your thigh. Your knee should be pointed directly to the ground, and not out to the side. Hold the stretch for at least 30 to 60 seconds. Repeat 2 to 4 times. Quad sets, Short arcs Sit with your affected leg straight and supported on the floor or a firm bed. Place a small, rolled-up towel under your affected knee. Your other leg should be bent, with that foot flat on the floor. Tighten the thigh muscles of your affected leg by pressing the back of your knee down into the towel. Hold for about 6 seconds, then rest for up to 10 seconds. Repeat 8 to 12 times. Straight-leg raises to the front, Quad "T"'s Lie on your back with your good knee bent so that your foot rests flat on the floor. Your affected leg should be straight. Make sure that your low back has a normal curve. You should be able to slip your hand in between the floor and the small of your back, with your palm touching the floor and your back touching the back of your hand. Tighten the thigh muscles in your affected leg by pressing the back of your knee flat down to the floor. Hold your knee straight. Keeping the thigh muscles tight and your leg straight, lift your affected leg up so that your heel is about 12 inches off the floor. Hold for about 6 seconds, then lower your l (more content not included)... Normal [facility] No Panel Informationon 07-12 No fracture or dislocation of the right knee is identified. Mild osteoarthritis of the bilateral knees. Report Dictated on Electronically Signed By: Estevan Arciniega MD Electronically Signed Date/Time: 07/12/2024 1:40 PM EDT [facility] Radiology Study observation (narrative) [facility] No Panel InformationOrdered By: Estevan Arciniega on 07-12-2024 [facility] Office Visiton 07-12-2024 Follow-up visit [id number] Dima Nice 1960 F Date Provider Department Center 07/12/2024 [id number] GUADARRAMA [facility] Sp[facility] None Family History Problem Relation Age of Onset Heart disease Mother Comments: chf Depression Mother Immunodeficiency Mother Arthritis Mother Asthma Mother Autoimmune disease Mother COPD Mother Macular degeneration Father Celiac disease Father Crohn's disease Niece Celiac disease Niece Family Status - Relation Status Age at Mother Father Alive Niece Alive Niece Alive Level of Service:78651 [place] OFFICE/OUTPATIENT NEW LOW MDM 30 MINUTES Reason for Visit and Comments: New Patient [542] - Right Knee Pain Normal [facility] Progress Noteon 07-12-2024 Progress Note [facility] [place] [address] [facility] [facility] [address] Dept: [phone] Dept Chief Complaint Patient presents with New Patient Right Knee Pain Subjective History of Present Illness: Dima Nice is a 64 y.o. female who presents today for evaluation of right knee pain. Mentions she has Lyme disease and arthritis. Was helping her dad do a project and kept getting up and down from a kneeling position and did something to her knee about 4 months ago. Pain is mostly located around patella. Would be interested in cortisone for pain relief today. Location: generalized Onset: 4 months Injury: no Quality: aching, throbbing, pressure, sharp, shooting, and stabbing Mechanical symptoms: instability and cracks Radiation of symptoms: no Severity: 1/10 at rest and 10/10 at worst Exacerbating factor(s): repetitive use, prolonged standing, rising from a seated position, climbing/descending stairs, getting in/out of a car, first steps out of bed, and explosive movements (running, cutting, jumping) Relieving factor(s): rest Timing: all day Imaging to date: Today's Visit 07/12/2024 A cortical defect along the most medial aspect of the femoral condyle, lateral OCD versus osteophyte Treatment to date: PT/OT/HEP: no Ice: no Heat: no Medications: Tylenol: yes, helpful NSAIDs: yes, Ibuprofen/Motrin/Advil and Aleve/Naproxen, helpful Oral steroids: no Muscle relaxants: no Nerve medications: no Targeted injections: none Assistive devices: brace Prior surgery: yes - 2023 Spinal Sx 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 Respiratory: Breathing comfortably on room air. No respiratory distress. Skin: Warm, dry, intact. No visible rashes or erythema overlying area of focused exam. Physical Exam Musculoskeletal: Right knee: No swelling, deformity, effusion, erythema, ecchymosis or bony tenderness. Normal range of motion. Tenderness present over the medial joint line. No lateral joint line tenderness. No LCL laxity, MCL laxity, ACL laxity or PCL laxity. Normal patellar mobility. Instability Tests: Anterior drawer test negative. Posterior drawer test negative. Anterior Yang test negative. Medial Ernestina test negative and lateral Ernestina test negative. External Notes No pertinent interval updates Labs No results found for: HGBA1C Lab Results Component Value Date CREATININE 0.82 03/22/2024 Imaging Images reviewed with patient today I have personally reviewed the images pertinent to the appointment today EMG/NCT No interval studies Procedure Procedure completed today, details below Procedure Note: We discussed risks and precautions including infection, bleeding, hypopigmentation, fat atrophy and a 1-2% chance of a steroid flare. Verbal and written consent was obtained. The right knee injection site was located, confirmed and marked, it was prepped in the usual fashion with betadine and isopropyl alcohol. 2 cc of Betamethasone (6mg/ml) and 4 cc of 1% lidocaine were placed in the, intra-articular, intracondylar space using a inferior lateral approach. The procedure was tolerated well. There were no complications with the injection. The injection site was bandaged. Assessment Diagnosis Plan 1. Primary osteoarthritis of right knee lidocaine (Xylocaine) 1 % injection 4 mL betamethasone acetate-betamethasone sodium phosphate (Celestone) injection 12 mg 2. Acute pain of right knee XR knees anteroposterior standing bilateral XR knee 1 or 2 views right Plan We discussed osteoarthritis of the knee. We reviewed the spectrum of 1. Pills - everything from Tylenol, ibuprofen, Aleve, and pain medicines. We also discussed glucosamine/chondroiti n combinations and how to perform a glucosamine trial. Additionally Tumeric can be supplemented, it is likely similar to ibuprofen and is generally safe for most people to take. Glucosamine Trial: As a treatment for arthritis, we discussed a trial of glucosamine, [id number]-[id number]. We talked about using a good quality glucosamine source as the testing agent. Cosamin DS or Osteo-Bio Flex would be two of the options to pick from. Write down, using as many numbers as possible, a description of when the arthritis is symptomatic ( i.e. I can go up 1 flight of stairs before my knee hurts, I can sleep 4 hours before my knee wakes me, my knee begins to hurt me at 2 p.m. on a work day ). This documentation will be kept for comparison in 3-4 months. Take the glucosamine twice daily for 3-4 months. Comparing your symptoms sheet, and see if there is improvement. Glucosamine will work in approximately 60-65% of people. If it is helping continue the supplementation. If there is no (more content not included)... Normal [facility] XR Knee - bilateral AP W sta ndingon 07-12-2024 Patient Name: DIMA NICE : 1960 Exam Date/Time: 07/12/2024 09:42 Procedure: XR KNEES ANTEROPOSTERIOR STANDING BILATERAL Ordering Provider: GUADARRAMA ROBERT Reason For Exam: KNEE PAIN; AP weightbearing and PA flex weightbearing STANDING AP VIEW BILATERAL KNEES RIGHT KNEE SERIES CLINICAL INDICATION: Pain Standing AP and PA flexed views of the bilateral knees were performed. Lateral and sunrise plain film views of the right knee were also obtained. COMPARISON: None FINDINGS: The standing AP and PA flexed views of the bilateral knees demonstrate mild degenerative spurring of the tibial spines bilaterally. No fracture or dislocation of the right knee is identified. There is no joint effusion on the lateral view. Soft tissues are unremarkable. [facility] Estevan Arciniega MD - 07/12/2024 Patient Name: DIMA NICE : 1960 Exam Date/Time: 07/12/2024 09:42 Procedure: XR KNEES ANTEROPOSTERIOR STANDING BILATERAL Ordering Provider: GUADARRAMA ROBERT Reason For Exam: KNEE PAIN; AP weightbearing and PA flex weightbearing STANDING AP VIEW BILATERAL KNEES RIGHT KNEE SERIES CLINICAL INDICATION: Pain Standing AP and PA flexed views of the bilateral knees were performed. Lateral and sunrise plain film views of the right knee were also obtained. COMPARISON: None FINDINGS: The standing AP and PA flexed views of the bilateral knees demonstrate mild degenerative spurring of the tibial spines bilaterally. No fracture or dislocation of the right knee is identified. There is no joint effusion on the lateral view. Soft tissues are unremarkable. IMPRESSION: No fracture or dislocation of the right knee is identified. Mild osteoarthritis of the bilateral knees. Report Dictated on Electronically Signed By: Estevan Arciniega MD Electronically Signed Date/Time: 07/12/2024 1:40 PM EDT [facility] XR Knee - right 1 or 2 Views on 07-12-2024 Patient Name: DIMA NICE : 1960 Exam Date/Time: 07/12/2024 09:42 Procedure: XR KNEE 1-2 VIEWS RIGHT Ordering Provider: GUADARRAMA ROBERT Reason For Exam: KNEE PAIN; Lateral, [place] STANDING AP VIEW BILATERAL KNEES RIGHT KNEE SERIES CLINICAL INDICATION: Pain Standing AP and PA flexed views of the bilateral knees were performed. Lateral and sunrise plain film views of the right knee were also obtained. COMPARISON: None FINDINGS: The standing AP and PA flexed views of the bilateral knees demonstrate mild degenerative spurring of the tibial spines bilaterally. No fracture or dislocation of the right knee is identified. There is no joint effusion on the lateral view. Soft tissues are unremarkable. [facility] RADIOLOGY SYSTEM Estevan Arciniega MD - 07/12/2024 Patient Name: DIMA NICE : 1960 Exam Date/Time: 07/12/2024 09:42 Procedure: XR KNEE 1-2 VIEWS RIGHT Ordering Provider: GUADARRAMA ROBERT Reason For Exam: KNEE PAIN; Lateral, [place] STANDING AP VIEW BILATERAL KNEES RIGHT KNEE SERIES CLINICAL INDICATION: Pain Standing AP and PA flexed views of the bilateral knees were performed. Lateral and sunrise plain film views of the right knee were also obtained. COMPARISON: None FINDINGS: The standing AP and PA flexed views of the bilateral knees demonstrate mild degenerative spurring of the tibial spines bilaterally. No fracture or dislocation of the right knee is identified. There is no joint effusion on the lateral view. Soft tissues are unremarkable. IMPRESSION: No fracture or dislocation of the right knee is identified. Mild osteoarthritis of the bilateral knees. Report Dictated on Electronically Signed By: Estevan Arciniega MD Electronically Signed Date/Time: 07/12/2024 1:40 PM EDT [address] 07-10-2024 36 Prescription Request : Last medication check: 05/26/23 Last physical exam: 03/22/24 Next scheduled appointment: 09/17/24 Last date of refill on this medication 05/23/24 90 tablets no refill [address] 06-04-2024 36 Noted. Will see as scheduled. [address] 06-01-2024 36 Sched for 06/19/[address] [facility] [address] Chang at 1:45 tried to call pt but phone would not go through [facility] 36 S: Patient called [facility] [place] with complaint of knee pain B: Called with complaint of knee pain and swelling A: Knee pain and swelling that has been worsening over the past few days She is currently out of state but is asking if the office does cortisone injections. . She is asking to be scheduled the beginning of june if the office still does injections, otherwise she is requesting a referral to ortho. R:She can be reached at [phone] Please leave a message if she does not answer, her cell service is spotty in [place]. Patient instructed to call back with worsening symptoms, concerns or questions. Reason for Disposition Swollen knee joint (no fever or redness) Protocols used: Knee [id number]-NM [address] 05-22-2024 36 Prescription Request : Baclofen 10mg Tablet Last medication check: 03/22/24 Last physical exam: 03/22/24 Next scheduled appointment: 09/17/24 Last date of refill on this medication 04/25/24 (90 tabs no refill) [address] 05-11-2024 36 Called patient, notified. [facility] 36on 05-10-2024 36 Prescription for Z-P ak sent she should also get Mucinex to take along with that. That is OTC. [facility] 36 S: Patient spoke luly [facility] nurse regarding cough, no shortness of breath Provider: Dr. Chang Practice Name: [facility] B: Onset of symptoms/concern 10 days A: Patient states she is having "copious" amounts of phlegm from coughing that started about 10 days ago. She states she has congestion in sinuses and feels pressure in ears and face." She states she will be moving next weekend for 6 months for a big project where she is cleaning and flipping a house and concerned she wont be better by then. States this started as a cold about 10 days ago and states it went right into coughing. Denies trying cough medicine. States "I think I need something to get the phlegm up and out." Patient states she has not taken any medications other than the ones prescribed to her. Has been using her inhaler more often with relief. Denies difficulty breathing, chest pain. R: Home care advice reviewed with patient. States she will try home care advice. No appointment available in office today with Dr. Chang. Declines POD scheduling as she requests to only see Dr. Chang in the office. Advised there are not appointments available and urgent care would be a good option for her. Patient agrees to be evaluated in urgent care. Patient verbalizes understanding of care advice. No further needs at this time. Patient instructed to call back with new or worsening symptoms. Reason for Disposition SEVERE coughing spells (e.g., whooping sound after coughing, vomiting after coughing) Protocols used: [id number]-[id number]-RL [facility] 36on 04-25-2024 36 Prescription Request : Last medication check: 08-16-23 Last physical exam: 04-11-24 Next scheduled appointment: 09-17-24 Last date of refill on this medication 03-22-[address] [facility] Progress Noteon 04-19-2024 Progress Note Venipuncture complet ed by [facility]. [facility] 36on 04-16-2024 36 Rx sent. OARRS repor t reviewed with no discrepancies. CSA signed in November 2023. Follow up as scheduled. [facility] 36on 04-13-2024 36 Prescription Request : Last medication check: 05/26/23 Last physical exam: 03/22/24 Next scheduled appointment: 09/17/24 CSA on file (date): 12/14/23 Last urine drug screen: not found Last date of refill on this medication: 02/06/[address] [facility] 36on 03-23-2024 36 Notified, scheduled, lab order pended. ----- Message from Casey Chang MD sent at 03/23/2024 8:33 AM EST ----- Blood sugar and chemistry are normal. Cholesterol is excellent. Vitamin D level is too high, she needs to stop her weekly vitamin D and go to a once a day vitamin D tablet which is vyou-[id number]-[id number] at 2000 units and recheck in 4 weeks. Uric acid is normal. [facility] Office Visiton 03-22-2024 Follow-up visit [id number] Dima Nice 1960 F Date Provider Department Center 03/22/2024 [id number] [facility]ANG [facility] Family History Problem Relation Age of Onset Heart disease Mother Comments: chf Depression Mother Immunodeficiency Mother Arthritis Mother Asthma Mother Autoimmune disease Mother COPD Mother Macular degeneration Father Celiac disease Father Crohn's disease Niece Celiac disease Niece Family Status - Relation Status Age at Mother Father Alive Niece Alive Niece Alive Level of Service:64131 OK PERIODIC PREVENTIVE MED EST PATIENT 40-64YRS Reason for Visit and Comments: Annual Exam [83] Blood Work [016030] Health Maintenance [872] - Pt refuse- hiv screen, colonoscopy, lung cancer screen, mammogram, 7th covid vaccine Flu vaccine- agree Medication Problem [65] - Pt has stopped lisinopril due to weight being down 30lbs and bp seems to be good without it Pt is taking baclofen due to muscle spasms in foot and it is not helping- she wonders if she talks to you about this or to the spine surgeon? [facility] Progress Noteon 03-22-2024 Progress Note We discussed differe nt treatments that may help with muscle spasms which include increasing her calcium, drinking pickle juice, using baking soda in water. She also can take her baclofen every night where she goes to bed. Normal [facility] Progress Note Controlled, continue allopurinol 150 mg daily Normal [facility] Progress Note Controlled, continue rosuvastatin 40 mg daily Normal [facility] Progress Note Remission, continue Celexa but will decrease it to 20 mg per patient's request Normal [facility] Progress Note Remission, continue Celexa but will decrease it to 20 mg per patient's request [facility] Progress Note Controlled, continue cholecalciferol 1.25 mg 50,000 units every [address] [facility] Progress Note Controlled, patient has stopped her lisinopril she continues to take chlorthalidone every other day. Normal [facility] Progress Note Stable, continue Symbicort 80-4.5 daily and albuterol as needed [facility] Progress Note Patient verified by last name and date of . Normal [facility] Progress Note 03/22/2024 Dima Nice (: 1960) is a 63 y.o. female , Established patient, here for evaluation of the following chief complaint(s): Annual Exam, Blood Work, Health Maintenance (Pt refuse- hiv screen, colonoscopy, lung cancer screen, mammogram, 7th covid vaccine/Flu vaccine- agree), and Medication Problem (Pt has stopped lisinopril due to weight being down 30lbs and bp seems to be good without it /Pt is taking baclofen due to muscle spasms in foot and it is not helping- she wonders if she talks to you about this or to the spine surgeon?) ASSESSMENT/PLAN: 1. Annual physical exam 2. Mild intermittent asthma without complication Assessment & Plan: Stable, continue Symbicort 80-4.5 daily and albuterol as needed 3. Primary hypertension Assessment & Plan: Controlled, patient has stopped her lisinopril she continues to take chlorthalidone every other day. 4. Vitamin D deficiency Assessment & Plan: Controlled, continue cholecalciferol 1.25 mg 50,000 units every 7 days Orders: - Vitamin D Deficiency Screening (Vit D 25) 5. Anxiety Assessment & Plan: Remission, continue Celexa but will decrease it to 20 mg per patient's request 6. Major depressive disorder in partial remission, unspecified whether recurrent ([facility]) Assessment & Plan: Remission, continue Celexa but will decrease it to 20 mg per patient's request 7. Idiopathic 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 Assessment & Plan: Controlled, continue allopurinol 150 mg daily Orders: - Uric acid 8. Hypercholesterolemia Assessment & Plan: Controlled, continue rosuvastatin 40 mg daily Orders: - Lipid panel 9. Screening for diabetes mellitus - Comprehensive metabolic panel 10. Screening for colon cancer - Cologuard? colon cancer screening 11. Muscle spasms of both lower extremities Assessment & Plan: We discussed different treatments that may help with muscle spasms which include increasing her calcium, drinking pickle juice, using baking soda in water. She also can take her baclofen every night where she goes to bed. Follow up in about 6 months (around 09/19/2024). SUBJECTIVE/OBJECTIVE: DELPHINE Goldman comes in today for an annual exam, she has a couple questions 1 is that she is having muscle spasms or her toes are curling underneath her feet and she says this is happening quite frequently especially at night and she is wondering if there is something that she can do. She said that this all started after she had her back surgery and she says after her back surgery she was unable to walk for a while but through physical therapy that has resolved but now she is getting the spasms. She also has stopped taking her lisinopril because her blood pressure was getting low she actually had an episode where she had syncope, she was told to go to the emergency room 3 days later when she called the call center so instead she stopped her lisinopril and her blood pressure looks good. She says she is monitoring it at home and she continues to get good numbers. She also here for follow-up on her gout which is controlled her hypercholesterolemia which is controlled and she has a history of anxiety and depression and she says those are well-controlled on her current dose of citalopram and she wants to cut that in half and go to 20 so we will do that. Review of Systems Constitutional: Negative for chills and fever. Respiratory: Negative for shortness of breath. Cardiovascular: Negative for chest pain and palpitations. Gastrointestinal: Negative for abdominal pain, blood in stool, constipation and diarrhea. Genitourinary: Negative for dysuria, frequency, hematuria and urgency. Neurological: Negative for weakness and numbness. Psychiatric/Behavioral : Negative for dysphoric mood. The patient is not nervous/anxious. Vitals: 03/22/24 0817 BP: 116/75 Pulse: 90 SpO2: 94% Weight: 251 lb 9.6 oz (114 kg) Height: 5' 3" (1.6 m) Physical Exam Vitals and nursing note reviewed. Constitutional: General: She is not in acute distress. Appearance: Normal appearance. HENT: Head: Normocephalic. Right Ear: Tympanic membrane, ear canal and external ear normal. Left Ear: Tympanic membrane, ear canal and external ear normal. Mouth/Throat: Mouth: Mucous membranes are moist. Pharynx: Oropharynx is clear. Eyes: Extraocular Movements: Extraocular movements intact. Pupils: Pupils are equal, round, and reactive to light. Neck: Thyroid: No thyromegaly. Vascular: No carotid bruit. Cardiovascular: Rate and Rhythm: Normal rate and regular rhythm. Heart sounds: Normal heart sounds. No murmur heard. Pulmonary: Effort: Pulmonary effort is normal. Breath sounds: Normal breath sounds. Abdominal: General: Bowel sounds are normal. Palpations: Abdomen is soft. Musculoskeletal: General: Normal range of motion. Cervical back: Normal range of motion. Lymphadenopathy: Cervical: No cervical adenopat (more content not included)... Normal [facility] 36on 03-05-2024 36 Noted. Thank you. Normal [facility] 36 Spoke to [facility], she will go to ER. [facility] 36 S: Pt calling [facility] after a syncopal event. B: She fainted on 03/02/2024. A: Pt fainted at post-office. 'Leaned against counter.' She had severe dizziness and then passed out briefly. Witnessed. Bruises on arms. No lacerations or abrasion. Pt still having dizziness. Severe at times. Needs to stop what she is doing. Pt is on low carb diet and lost 30 lbs in four months. No sugar for past three weeks. Pt has no current symptoms. She thinks her dose of Lisinopril 30 mg Two tablets once daily may be too high since losing weight. BP 117/78 a few days ago prior to taking morning medications. Pt denies chest pain, difficulty breathing or other symptoms. R: Advised pt to go to nearest ED now, and have another adult drive. Pt declined. Would like PCP appointment. Care advice given. Message sent to PCP's office. Advised 911 if she feels like she is going to pass out. Told her to call back with any other new/worsening symptoms. Pt verbalized understanding. Reason for Disposition [1] Fainted > 15 minutes ago AND [2] still feels weak or dizzy Protocols used: [id number] [place] [address]on 03-01-2024 36 Rx sent [place] [id number] Prescription Request : Last medication check: 05/26/23 Last physical exam: none Next scheduled appointment: 03/22/24 Last date of refill on this medication 02/06/[address] 02-27-2024 36 Patient is scheduled Mar 22 at 8:[address] Chang for physical. [place] [id number] Rx sent with no refills. Past due for follow up in the office. Please schedule. [place] [id number] Prescription Request : Last medication check: 05/26/23 Last physical exam: none Next scheduled appointment: none Last date of refill on this medication 02/06/24 18g [address] 02-06-2024 36 Rx sent, OARRS repor t done, no inconsistencies, CS agreement in place [place] [id number] Rx sent [place] [id number] Prescription Request : Last medication check: 08/16/23 Last physical exam: 2021 Next scheduled appointment: none Last date of refill on this medication 03/16/23 16 g 5 refills [place] [id number] Prescription Request : Last medication check: 08/16/23 Last physical exam: 2021 Next scheduled appointment: none Last date of refill on this medication 08/11/23 90 day and no refill [place] [id number] Prescription Request : Last medication check: 08/16/23 Last physical exam: 2021 Next scheduled appointment: none Last date of refill on this medication 09/02/23 albuterol inhaler 18g 0 refill 08/11/23 flexeril 30 tablets no refill Normal [place] [id number] Prescription Request : Last medication check: 08/16/23 Last physical exam: 2021 Next scheduled appointment: none CSA on file (date): 12/14/23 Last urine drug screen: none Last date of refill on this medication 10/10/23 chlorthalidone 90 and no refill 01/04/24 allopurinol 90 tablets no refill Vitamin d3 12 capsules no refill Meloxicam 90 tablets no refill 12/01/23 citalopram 90 tablets no refill Lorazepam 60 tablets no refill 12/24/23 clindamycin gel - not sure if we have prescribed before 08/11/23 rosuvastatin 90 tablets no refill [facility] Progress Noteon 02-06-2024 Progress Note [facility] AT [address] [id number] Discharge Notification Patient Name: Dima Nice : 1960 Today's Date: 02/06/2024 Patient has not been seen since 12/07/2023. No contact has been made to schedule additional appointments in the past 30+ days following hold from therapy. The patient will be discharged at this time. Please refer to re-assessment for last goals/objective measurements, assessment and progress report. Thank you for this referral. For any questions on this patient?s course of therapy, please call the clinic for clarification. Rohith Tyler, PT [facility] 36on 01-04-2024 36 Prescription Request : Last medication check: 08/16/2023 Last physical exam:09/30/2021 Next scheduled appointment: none Last date of refill on this medication: Vit. D3- 07/28/2023 Allopurinol: 01/31/2023 Meloxicam: 09/05/[address] 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 To a much lesser extent, she reported left sided pain in the same distribution to a much lower extent. She reported right foot drop for two months. She reports low back pain much more mild (VAS 6/10). Lumbar injections three months ago provided only transient relief. 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 within the past 6 months EMG (07/28/23): right L5 radiculopathy without a peroneal neuropathy Extensive electrodiagnostic examination of the right lower extremity and additional nerve conduction studies of the left lower extremity reveals the following changes: . 1. Absent sural sensory response bilaterally is likely technical in nature and secondary to severe LE edema and body habitus. Thus, no definite evidence of a large fiber polyneuropathy. Clinical correlation is recommended. 2. Chronic motor axon loss changes consistent with intraspinal canal lesions/process affecting the right L5 root or segment (i.e, motor radiculopathy), mild in degree electrically, being accompanied by evidence of active or ongoing motor fiber loss in right EDB muscle. Limited contralateral NEE revealed no significant abnormalities. 3. No evidence of a right peroneal neuropathy. Bone Mineral Density ACTIVE PROBLEM LIST High Cholesterol Hypertension Vitamin D Deficiency Anxiety Asthma Depression Flaccid Tetraplegia (Hcc) Hepatic Steatosis Gastroesophageal Reflux Disease Hidradenitis Suppurativa Radiculopathy, Lumbar Region Spinal Stenosis of Lumbar Region With Neurogenic Claudication PAST MEDICAL HISTORY Diagnosis Date Allergies Anxiety Arthritis Depression Gout Hiatal hernia High cholesterol Hydradenitis Hypertension Lyme disease triggered severe arthritis Vitamin D deficiency PAST SURGICAL HISTORY Procedure Laterality Date APPENDECTOMY HX BIOPSY BREAST benign COLONOSCOPY SCREENING 30 years ago per patient HYSTERECTOMY FAMILY HISTORY Problem Relation Age of Onset Immune Deficiency Mother Celiac Disease Father Heart Father Diabetes Paternal Grandmother Celiac Disease Other many family members Colon Cancer No Family History Anesthesia Problems No Family History Social History Tobacco Use Smoking status: Every Day Current packs/day: 1.00 Average packs/day: 1 pack/day for 49.9 years (49.9 ttl pk-yrs) Types: Cigarettes Start date: 12/25/1973 Smokeless tobacco: Never Tobacco comments: 5/ day, nicotine patches Vaping Use Vaping status: Never Used Substance Use Topics Alcohol use: Yes Alcohol/week: 3.0 standard drinks of alcohol Types: 3 Glasses of Wine (5oz) per week Comment: couple times/week Drug use: Not Currently Types: Marijuana Comment: has medical marijuana card, hasn't used since June 2023 ALLERGIES Allergen Reactions Codeine Other: See Comments Mind changes MEDICATIONS: fluticasone prp-sod.chl,bicarb 50 mcg- 0.9 % ksps Use 2 Sprays in the nose once daily. chlorthalidone (HYGROTON) 25 mg tablet Take 25 mg by mouth once daily. allopurinol (ZYLOPRIM) 300 mg tablet TAKE 1/2 (ONE-HALF) TABLET BY MOUTH IN THE MORNING budesonide-formoterol (SYMBICORT) 80-4.5 mcg/actuation inhaler Inhale 2 Puffs as instructed twice daily. omeprazole (PRILOSEC) 20 mg capsule Take 1 capsule by mouth once daily. pravastatin (PRAVACHOL) 20 mg tablet Take 1 tablet by mouth once daily. cholecalciferol, Vitamin D3, (VITAMIN D3) 1,250 mcg (50,000 unit) cap capsule Take 1 capsule by mouth one time a week. citalopram hydrobromide (CELEXA ORAL) Take 30 mg by mouth once daily. lisinopril (ZESTRIL, PRINIVIL) 20 mg tablet Take 20 mg by mouth once daily. albuterol HFA (PROAIR HFA) 90 mcg/actuation inhaler Inhale 2 Puffs as instructed every 6 hours as needed. LORazepam (ATIVAN) 0.5 mg (Patient not taking: Reported on 10/04/2023) rosuvastatin (CRESTOR) 40 mg tablet Take 40 mg by mouth once daily. (Patient not taking: Reported on 11/22/2023) ESTER HANSEN, PEN 40 mg/0.4 mL pen kit Inject 40 mg subcutaneously one time a week. Mondays (Patient not taki (more content not included)... 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 To a much lesser extent, she reported left sided pain in the same distribution to a much lower extent. She reported right foot drop for two months. She reports low back pain much more mild (VAS 6/10). Lumbar injections three months ago provided only transient relief. 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 within the past 6 months EMG (07/28/23): right L5 radiculopathy without a peroneal neuropathy Extensive electrodiagnostic examination of the right lower extremity and additional nerve conduction studies of the left lower extremity reveals the following changes: . 1. Absent sural sensory response bilaterally is likely technical in nature and secondary to severe LE edema and body habitus. Thus, no definite evidence of a large fiber polyneuropathy. Clinical correlation is recommended. 2. Chronic motor axon loss changes consistent with intraspinal canal lesions/process affecting the right L5 root or segment (i.e, motor radiculopathy), mild in degree electrically, being accompanied by evidence of active or ongoing motor fiber loss in right EDB muscle. Limited contralateral NEE revealed no significant abnormalities. 3. No evidence of a right peroneal neuropathy. Bone Mineral Density ACTIVE PROBLEM LIST High Cholesterol Hypertension Vitamin D Deficiency Anxiety Asthma Depression Flaccid Tetraplegia (Hcc) Hepatic Steatosis Gastroesophageal Reflux Disease Hidradenitis Suppurativa Radiculopathy, Lumbar Region Spinal Stenosis of Lumbar Region With Neurogenic Claudication PAST MEDICAL HISTORY No date: Allergies No date: Anxiety No date: Arthritis No date: Depression No date: Gout No date: Hiatal hernia No date: High cholesterol No date: Hydradenitis No date: Hypertension No date: Lyme disease Comment: triggered severe arthritis No date: Vitamin D deficiency PAST SURGICAL HISTORY No date: APPENDECTOMY HX No date: BIOPSY BREAST Comment: benign No date: COLONOSCOPY SCREENING Comment: 30 years ago per patient No date: HYSTERECTOMY FAMILY HISTORY Problem Relation Age of Onset Immune Deficiency Mother Celiac Disease Father Heart Father Diabetes Paternal Grandmother Celiac Disease Other many family members Colon Cancer No Family History Anesthesia Problems No Family History Social History Tobacco Use Smoking status: Every Day Current packs/day: 1.00 Average packs/day: 1 pack/day for 49.8 years (49.8 ttl pk-yrs) Types: Cigarettes Start date: 12/25/1973 Smokeless tobacco: Never Tobacco comments: 5/ day, nicotine patches Vaping Use Vaping status: Never Used Substance Use Topics Alcohol use: Yes Alcohol/week: 3.0 standard drinks of alcohol Types: 3 Glasses of Wine (5oz) per week Comment: couple times/week Drug use: Not Currently Types: Marijuana Comment: has medical marijuana card, hasn't used since June 2023 ALLERGIES Allergen Reactions Codeine Other: See Comments Mind changes MEDICATIONS: fluticasone prp-sod.chl,bicarb 50 mcg- 0.9 % ksps Use 2 Sprays in the nose once daily. chlorthalidone (HYGROTON) 25 mg tablet Take 25 mg by mouth once daily. rosuvastatin (CRESTOR) 40 mg tablet Take 40 mg by mouth once daily. allopurinol (ZYLOPRIM) 300 mg tablet TAKE 1/2 (ONE-HALF) TABLET BY MOUTH IN THE MORNING budesonide-formoterol (SYMBICORT) 80-4.5 mcg/actuation inhaler Inhale 2 Puffs as instructed twice daily. omeprazole (PRILOSEC) 20 mg capsule Take 1 capsule by mouth once daily. pravastatin (PRAVACHOL) 20 mg tablet Take 1 tablet by mouth once daily. meloxicam (MOBIC) 15 mg tablet Take 0.5 tablets by mouth twice daily. (Patient taking differently: Take 7.5 mg by mouth once daily.) cholecalciferol, Vitamin D3, (VITAMIN D3) 1,250 mcg (50,000 unit) cap capsule Take 1 capsule by mouth one time a week. citalopram hydrobromide (CELEXA ORAL) Take 30 mg by mouth once daily. lisinopril (ZESTRIL, PRINIVIL) 20 mg tablet Take 20 mg by mouth once daily. albuterol HFA (PROAIR HFA) 90 mcg/actuation inhaler Inhale 2 Puffs as instructed every 6 hours as needed. (more content not included)... Normal [facility] XR HIP MELANY 5V PEL+ AP/LAT EA HIPon 10-04-2023 XR HIP MELANY 5V PEL+ AP/LAT EA HIP * * *Final Report* * * DATE OF EXAM: Oct 04 2023 11:55AM HCX [id number] - XR HIP MELANY 5V PEL+ AP/LAT EA HIP / PROCEDURE REASON: Status post lumbar spine operative procedure for decompression of spinal cord * * * * Physician Interpretation * * * * RESULT: EXAM: XR HIP MELANY 5V PEL+ AP/LAT EA HIP PATIENT/TECHNOLOGIST PROVIDED HISTORY: Pain in Left and right hip. Left hip hurts the most CLINICAL INFORMATION ( PROVIDED BY ORDERING CLINICIAN) : Status post lumbar spine operative procedure for decompression of spinal cord COMPARISON: None available FINDINGS: No acute osseous abnormality. Normal alignment. Minimal to mild degenerative changes at the hips bilaterally. IMPRESSION: Minimal to mild degenerative change. Transcribed Using Voice Recognition Transcribe Date/Time: Oct 09 2023 2:23P Dictated by: CONNIE HOOKS MD This examination was interpreted and the report reviewed and electronically signed by: CONNIE HOOKS MD on Oct 09 2023 2:26PM EST [id number] [facility] 09-22-2023 [facility] Telephone ([facility]) DIMA NICE ([id number]) 1960 F Date Time Provider Department 09/22/23 MARTHA LORENZO [facility] During your visit today, we recorded the following information about you: Ashli Chino 09/22/2023 3:57 PM Signed Call received for Martha Lorenzo MD regarding Dima Nice 1960. Caller: Self Patient Identified by Name and : Yes Was permission obtained from patient ? Yes Reason for Call: The patient called to ask to speak with Dr. Lorenzo's nurse regarding new pain in her left hip. She is unable to walk or move around and is asking if there is any medication that could help. Last Office Visit: 07/13/2023 Next scheduled appointment: 10/04/2023 Best number to reach caller: [phone] Best time to reach caller: Any Is it OK to leave a detailed voice message? Yes Karley Garner RN 09/22/2023 4:42 PM Signed NEUROSURGERY CARE COORDINATION [facility] QUICK NOTE Chart reviewed. Patient S/P Right-Sided MIS Approach for Bilateral L4/5 Hemilaminotomies for Bilateral Decompression with Dr. Lorenzo on 08/24. Noted first post-op appointment with HEMANT dated 09/07. Noted second post-op appointment scheduled with Dr. Lorenzo for 10/03. Returned call to patient at phone number below, verified name and , discussed below, states left hip pain started immediately after surgery, states 8/10 intermittent sharp left hip pain, states discussed this with HEMANT during first post-op appointment, states left hip pain improves after walking, states laying or sitting down for any length of time causes the pain, states "is afraid to stand up because of the pain", states has previously taken Tramadol and states Tramadol helped with pain, states needs refill, states has been alternating between taking Flexeril AND Baclofen per Dr. Lorenzo, states needs refills, states taking Meloxicam as prescribed/prn, states above medications seem to help, discussed use of OTC Tylenol prn, discussed use of ice and heat prn, states has been using heat at times and states heat is helpful, asking if any other recommendations at this time, pharmacy verified, informed message will be sent to NSGY team with Dr. Lorenzo regarding this and that response will be relayed afterwards, states understanding. Routing to NSGY team. CONRADO Farah, RN September 22, 2023 4:40 PM Veronique Westbrook APRN.[facility] 09/22/2023 5:10 PM Signed Chart reviewed, including most recent office visit note. PDMP reviewed. Patient with upcoming appt with . Refills of pain medication and steroid dose pack sent to patient's pharmacy on file until she is able to discuss ongoing pain with surgeon at next follow-up appt. Patient's request for medication is as follows: Requested Prescriptions Signed Prescriptions Disp Refills traMADol (ULTRAM) 50 mg tablet 28 tablet 0 Sig: Take 1 tablet by mouth every 6 hours as needed for pain (For acute post operative pain) for up to 7 days. Authorizing Provider: VERONIQUE WESTBROOK baclofen 15 mg tablet 42 tablet 0 Sig: Take 1 tablet (15 mg) by mouth three times a day for 14 days. Authorizing Provider: VERONIQUE WESTBROOK methylPREDNISolone (MEDROL, ALEX,) 4 mg Dose-Pack 21 tablet 0 Sig: As instructed per package Authorizing Provider: VERONIQUE WESTBROOK Prescription(s) as above. Please process accordingly. Veronique Westbrook APRN.Karley Fagan, RIANA 09/23/2023 10:36 AM Signed NEUROSURGERY CARE COORDINATION [facility] QUICK NOTE Noted. Noted prescriptions. Returned call to patient, verified name and , relayed and discussed below per CLASSROOM TECHNOLOGY TECHNICIAN, discussed medication administration instructions, all questions answered, states understanding, denies needing anything further, instructed to contact office again as needed. No further action required by this RN at this time. CONRADO Farah, RN September 23, 2023 10:36 AM Allergies As of Date: 09/22/2023 Noted Allergy Reaction CODEINE 07/17/2017 14 - Other: See Comments Comments: Mind changes Date Reviewed: 09/22/2023 Reviewed by: Veronique Westbrook APRN.[facility] - Fully Assessed Reason for Visit: Patient Question [1477] Pain [78] Visit Diagnosis:Radiculopath y, lumbar region [M54.16] Order(s):traMADol (ULTRAM) 50 mg tabletTake 1 tablet by mouth every 6 hours as needed for pain (For acute post operative pain) for up to 7 days.Disp: 28 tabletRfl: 0 baclofen 15 mg tabletTake 1 tablet (15 mg) by mouth three times a day for 14 days.Disp: 42 tabletRfl: 0 methylPREDNISolone (MEDROL, ALEX,) 4 mg Dose-PackAs instructed per packageDisp: 21 tabletRfl: 0 Prescriptions as of 09/23/2023 - traMADol (ULTRAM) 50 mg tablet Take 1 tablet by mouth every 6 hours as needed for pain (For acute post operative pain) for up to 7 days. - baclofen 15 mg tablet Take 1 tablet (15 mg) by mouth three times a day for 14 days. - methylPREDNISolo (more content not included)... Normal [facility] 09-09-2023 [facility] Telephone ([facility]) DIMA NICE ([id number]) 1960 F Date Time Provider Department 09/09/23 MARTHA LORENZO [facility] During your visit today, we recorded the following information about you: Ashli Chino 09/09/2023 12:54 PM Signed The physical therapy order was sent via fax to #[phone] as per the patient's request. Ashli Gonzalez Allergies As of Date: 09/09/2023 Noted Allergy Reaction CODEINE 07/17/2017 14 - Other: See Comments Comments: Mind changes Date Reviewed: 08/25/2023 Reviewed by: Laura Prabhakar, RN - Fully Assessed Reason for Visit: Patient Update [1234] Prescriptions as of 09/09/2023 - traMADol (ULTRAM) 50 mg tablet Take 1 tablet by mouth every 6 hours as needed for pain (For acute post operative pain) for up to 7 days. - fluticasone prp-sod.chl,bicarb 50 mcg- 0.9 % ksps Use 2 Sprays in the nose once daily. - chlorthalidone (HYGROTON) 25 mg tablet Take 25 mg by mouth once daily. - LORazepam (ATIVAN) 0.5 mg - rosuvastatin (CRESTOR) 40 mg tablet Take 40 mg by mouth once daily. - allopurinol (ZYLOPRIM) 300 mg tablet TAKE 1/2 (ONE-HALF) TABLET BY MOUTH IN THE MORNING - budesonide-formoterol (SYMBICORT) 80-4.5 mcg/actuation inhaler Inhale 2 Puffs as instructed twice daily. - HUMIRA,CF, PEN 40 mg/0.4 mL pen kit Inject 40 mg subcutaneously one time a week. Mondays - omeprazole (PRILOSEC) 20 mg capsule Take 1 capsule by mouth once daily. - pravastatin (PRAVACHOL) 20 mg tablet Take 1 tablet by mouth once daily. - meloxicam (MOBIC) 15 mg tablet Take 0.5 tablets by mouth twice daily. - cholecalciferol, Vitamin D3, (VITAMIN D3) 1,250 mcg (50,000 unit) cap capsule Take 1 capsule by mouth one time a week. - citalopram hydrobromide (CELEXA ORAL) Take 30 mg by mouth once daily. - lisinopril (ZESTRIL, PRINIVIL) 20 mg tablet Take 20 mg by mouth once daily. - albuterol HFA (PROAIR HFA) 90 mcg/actuation inhaler Inhale 2 Puffs as instructed every 6 hours as needed. 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] 08/11/2023 Hepatic steatosis [K76.0] 09/22/2022 Gastroesophageal reflux disease [K21.9] 08/11/2023 Hidradenitis suppurativa [L73.2] 04/17/2019 Radiculopathy, lumbar region [M54.16] 08/24/2023 Spinal stenosis of lumbar region with neurogeni*08/24/2023 Encounter Status:Closed by ASHLI CHINO on 09/09/23 [facility] CNOVon 09-08-2023 [facility] DIMA NICE ([id number]) 1960 F Date Time Provider Department 09/08/23 11:40 AM SANCHEZ POOLE [facility] During your visit today, we recorded the following information about you: Pulse Blood pressure 88/minute 129/81 Sanchez Poole PA-C 09/08/2023 11:43 AM Signed SPINE SURGERY FOLLOW UP This is an in-person visit. SERVICE DATE: 09/08/2023 SURGERY DATE: 08/25/23 Dima Nice is seen for 2 week post operative follow up s/p right L4/[address] Lorenzo. Patient is ding well though the pain in her right leg has returned which she relates to being out of pain medications. No new numbness or weakness. No issues with her incision. Patient has no other acute complaints or concerns at this time. PAIN EVALUATION 09/08/2023 1127 Pain Level: 7 Pain Location: Hip-Left right hip, legs Patient Entered Questionnaires 07/26/2023 Spine Questions Pain Location: Leg Pain Duration: 3-6 months Pain over last 6 months: Every day or nearly every day in the past 6 months Symptoms from neck/cervical spine: No Employment Status: Retired Involved in law suit/legal claim: No PROMIS Score Percentiles 07/26/2023 Physical Health Physical Function Percentile 2 Sleep Percentile 27* Fatigue Percentile 10 Pain Interference Percentile 2 07/26/2023 PROMIS SOCIAL ROLE SCORE Social Role Satisfaction Percentile 14 07/26/2023 PROMIS Global Health Scale Physical Health Percentile 10 Mental Health Percentile 13 Percentiles provide an indication of how the patient's score ranks in relation to the general population. Higher percentile rankings indicate better function/quality of life. 50th percentile is the average of the general population and indicates half of respondents had a worse score. PHYSICAL EXAM: BP 129/81 Pulse 88 General: Awake, alert and in no acute distress. Patient is pleasant and cooperative Motor: LE Hip Flex Knee Flex Knee Extend Plantarflex Dorsiflex R 5/5 5/5 5/5 5/5 5/5 L 5/5 5/5 5/5 5/5 5/5 Wound: Appropriate post operative wound located in lower back. Incision appears well approximated with glue. No signs of erythema, fluctuance, blood/mucoid discharge, wound appears CDI. DATA REVIEW [facility] records independently reviewed ASSESSMENT/PLAN (M54.16) Radiculopathy, lumbar region (primary encounter diagnosis) Dima Nice is seen for 2 week post operative follow up s/p right L4/[address] Lorenzo. - Patient doing well - Will place orders for physical therapy - Will refill pain medications - Discussed increasing activity as tolerated - Follow up as previously scheduled SIGNATURE: Sanchez Poole PA-C PATIENT NAME: Dima Nice DATE: September 08, 2023 TIME: 11:27 AM PAGER: Allergies As of Date: 09/08/2023 Noted Allergy Reaction CODEINE 07/17/2017 14 - Other: See Comments Comments: Mind changes Date Reviewed: 08/25/2023 Reviewed by: Laura Prabhakar RN - Fully Assessed Reason for Visit: Post Op [174] Primary Visit Diagnosis:Radiculopath y, lumbar region [M54.16] Order(s):traMADol (ULTRAM) 50 mg tabletTake 1 tablet by mouth every 6 hours as needed for pain (For acute post operative pain) for up to 7 days.Disp: 28 tabletRfl: 0 CONSULT TO PHYSICAL THERAPY [9032] Order #: [id number]: 1 FUTURE Prescriptions as of 09/08/2023 - traMADol (ULTRAM) 50 mg tablet Take 1 tablet by mouth every 6 hours as needed for pain (For acute post operative pain) for up to 7 days. - cyclobenzaprine (FLEXERIL) 10 mg tablet Take 1 tablet by mouth three times a day for 14 days. - baclofen 15 mg tablet Take 1 tablet (15 mg) by mouth three times a day for 14 days. - docusate sodium (COLACE) 100 mg capsule Take 1 capsule by mouth two times a day for 14 days. - fluticasone prp-sod.chl,bicarb 50 mcg- 0.9 % ksps Use 2 Sprays in the nose once daily. - chlorthalidone (HYGROTON) 25 mg tablet Take 25 mg by mouth once daily. - LORazepam (ATIVAN) 0.5 mg - rosuvastatin (CRESTOR) 40 mg tablet Take 40 mg by mouth once daily. - allopurinol (ZYLOPRIM) 300 mg tablet TAKE 1/2 (ONE-HALF) TABLET BY MOUTH IN THE MORNING - budesonide-formoterol (SYMBICORT) 80-4.5 mcg/actuation inhaler Inhale 2 Puffs as instructed twice daily. - HUMIRA,CF, PEN 40 mg/0.4 mL pen kit Inject 40 mg subcutaneously one time a week. Mondays - omeprazole (PRILOSEC) 20 mg capsule Take 1 capsule by mouth once daily. - pravastatin (PRAVACHOL) 20 mg tablet Take 1 tablet by mouth once daily. - meloxicam (MOBIC) 15 mg tablet Take 0.5 tablets by mouth twice daily. - cholecalciferol, Vitamin D3, (VITAMIN D3) 1,250 mcg (50,000 unit) cap capsule Take 1 capsule by mouth one time a week. - citalopram hydrobromide (CELEXA ORAL) Take 30 mg by mouth once daily. - lisinopril (ZESTRIL, PRINIVIL) 20 mg tablet Take 20 mg (more content not included)... Normal [facility] DIMA NICE ([id number]) 1960 F Date Time Provider Department 08/29/23 MARTHA LORENZO [facility] During your visit today, we recorded the following information about you: Karley Mccarthy, RIANA 08/29/2023 1:31 PM Signed NEUROSURGERY CARE COORDINATION [facility] POST-OP FOLLOW UP TELEPHONE CALL Called patient at home/mobile phone number and patient identified by name and ? Yes. Patient is 4 days post-op from Right-Sided MIS Approach for Bilateral L4/5 Hemilaminotomies for Bilateral Decompression with Dr. Lorenzo. Pain is well controlled with pain medication Roxicodone and muscle relaxers Flexeril AND Baclofen, noted both ordered per Dr. Lorenzo, and NSAID Toradol, also noted Colace ordered per Dr. Lorenzo, discussed taking all medications as prescribed/prn, states only taking one muscle relaxer at this time, discussed use of ice prn and benefits of using ice after surgery, states overall doing great, instructed to contact office as needed here, states understanding. Incision is clean, dry, and with absorbable sutures, states GREGG, educated on s/s of infection, instructed to contact office if any s/s of infection noticed, denies having any s/s of infection at this time. Activity: walking well unassisted. Additional concerns: denies. Follow up appointment scheduled for: 09/07 at 1140 with HEMANT as an in office appointment, patient aware. All questions answered. States understanding to above. Denies having any further questions or concerns at this time. Instructed to call office as needed, office phone number provided. CONRADO Farah, RN August 29, 2023 1:30 PM Allergies As of Date: 08/29/2023 Noted Allergy Reaction CODEINE 07/17/2017 14 - Other: See Comments Comments: Mind changes Date Reviewed: 08/25/2023 Reviewed by: Laura Prabhakar RN - Fully Assessed Reason for Visit: Surgical Follow Up [176] Prescriptions as of 08/29/2023 - cyclobenzaprine (FLEXERIL) 10 mg tablet Take 1 tablet by mouth three times a day for 14 days. - baclofen 15 mg tablet Take 1 tablet (15 mg) by mouth three times a day for 14 days. - docusate sodium (COLACE) 100 mg capsule Take 1 capsule by mouth two times a day for 14 days. - keTORolac (TORADOL) 10 mg tablet Take 1 tablet by mouth every 6 hours as needed for up to 5 days. - oxyCODONE IR (ROXICODONE) 5 mg immediate release tablet Take 1-2 tablets by mouth every 6 hours as needed for up to 7 days. - fluticasone prp-sod.chl,bicarb 50 mcg- 0.9 % ksps Use 2 Sprays in the nose once daily. - traMADol (ULTRAM) 50 mg tablet Take 50 mg by mouth every 8 hours as needed for pain. - chlorthalidone (HYGROTON) 25 mg tablet Take 25 mg by mouth once daily. - LORazepam (ATIVAN) 0.5 mg - rosuvastatin (CRESTOR) 40 mg tablet Take 40 mg by mouth once daily. - allopurinol (ZYLOPRIM) 300 mg tablet TAKE 1/2 (ONE-HALF) TABLET BY MOUTH IN THE MORNING - budesonide-formoterol (SYMBICORT) 80-4.5 mcg/actuation inhaler Inhale 2 Puffs as instructed twice daily. - HUMIRA,CF, PEN 40 mg/0.4 mL pen kit Inject 40 mg subcutaneously one time a week. Mondays - omeprazole (PRILOSEC) 20 mg capsule Take 1 capsule by mouth once daily. - pravastatin (PRAVACHOL) 20 mg tablet Take 1 tablet by mouth once daily. - meloxicam (MOBIC) 15 mg tablet Take 0.5 tablets by mouth twice daily. - cholecalciferol, Vitamin D3, (VITAMIN D3) 1,250 mcg (50,000 unit) cap capsule Take 1 capsule by mouth one time a week. - citalopram hydrobromide (CELEXA ORAL) Take 30 mg by mouth once daily. - lisinopril (ZESTRIL, PRINIVIL) 20 mg tablet Take 20 mg by mouth once daily. - albuterol HFA (PROAIR HFA) 90 mcg/actuation inhaler Inhale 2 Puffs as instructed every 6 hours as needed. 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] 08/11/2023 Hepatic steatosis [K76.0] 09/22/2022 Gastroesophageal reflux disease [K21.9] 08/11/2023 Hidradenitis suppurativa [L73.2] 04/17/2019 Radiculopathy, lumbar region [M54.16] 08/24/2023 Spinal stenosis of lumbar region with neurogeni*08/24/2023 Encounter Status:Closed by KARLEY MCCARTHY on 08/29/23 [facility] 08-28-2023 [facility] Telephone ([facility]) DIMA NICE ([id number]) 1960 F Date Time Provider Department 08/28/23 [facility] During your visit today, we recorded the following information about you: Edinson Stone APRN.CLASSROOM TECHNOLOGY TECHNICIAN 08/28/2023 12:49 PM Signed Received message patient had concerns about taking flexiril and baclofen together. Discussed the muscle relaxers are frequently prescribed together and it is ok to take together. They were both also listed on d/c instructions. Discussed if she should have any adverse reactions she make her provider aware and/or go to the ED depending on severity. Edinson Stone APRN, CLASSROOM TECHNOLOGY TECHNICIAN Allergies As of Date: 08/28/2023 Noted Allergy Reaction CODEINE 07/17/2017 14 - Other: See Comments Comments: Mind changes Date Reviewed: 08/25/2023 Reviewed by: Laura Prabhakar RN - Fully Assessed Reason for Visit: Patient Question [1477] Prescriptions as of 08/28/2023 - cyclobenzaprine (FLEXERIL) 10 mg tablet Take 1 tablet by mouth three times a day for 14 days. - baclofen 15 mg tablet Take 1 tablet (15 mg) by mouth three times a day for 14 days. - docusate sodium (COLACE) 100 mg capsule Take 1 capsule by mouth two times a day for 14 days. - keTORolac (TORADOL) 10 mg tablet Take 1 tablet by mouth every 6 hours as needed for up to 5 days. - oxyCODONE IR (ROXICODONE) 5 mg immediate release tablet Take 1-2 tablets by mouth every 6 hours as needed for up to 7 days. - fluticasone prp-sod.chl,bicarb 50 mcg- 0.9 % ksps Use 2 Sprays in the nose once daily. - traMADol (ULTRAM) 50 mg tablet Take 50 mg by mouth every 8 hours as needed for pain. - chlorthalidone (HYGROTON) 25 mg tablet Take 25 mg by mouth once daily. - LORazepam (ATIVAN) 0.5 mg - rosuvastatin (CRESTOR) 40 mg tablet Take 40 mg by mouth once daily. - allopurinol (ZYLOPRIM) 300 mg tablet TAKE 1/2 (ONE-HALF) TABLET BY MOUTH IN THE MORNING - budesonide-formoterol (SYMBICORT) 80-4.5 mcg/actuation inhaler Inhale 2 Puffs as instructed twice daily. - HUMIRA,CF, PEN 40 mg/0.4 mL pen kit Inject 40 mg subcutaneously one time a week. Mondays - omeprazole (PRILOSEC) 20 mg capsule Take 1 capsule by mouth once daily. - pravastatin (PRAVACHOL) 20 mg tablet Take 1 tablet by mouth once daily. - meloxicam (MOBIC) 15 mg tablet Take 0.5 tablets by mouth twice daily. - cholecalciferol, Vitamin D3, (VITAMIN D3) 1,250 mcg (50,000 unit) cap capsule Take 1 capsule by mouth one time a week. - citalopram hydrobromide (CELEXA ORAL) Take 30 mg by mouth once daily. - lisinopril (ZESTRIL, PRINIVIL) 20 mg tablet Take 20 mg by mouth once daily. - albuterol HFA (PROAIR HFA) 90 mcg/actuation inhaler Inhale 2 Puffs as instructed every 6 hours as needed. 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 Author Type: Registered Nurse Type: [id number] Filed: 08/25/2023 12:03 Note Text: Tylenol next dose due 6 pm today, 08/25/2023 as needed for pain Normal [facility] ANES POSTPROC EVALon 024 ANES POSTPROC EVAL HNO ID: [id number] Author: VALENTINA BARNES MD Service: Anesthesiology Author Type: Anesthesiologist Type: Anesthesia Postprocedure Evaluation Filed: 08/25/2023 11:06 Note Text: POST ANESTHESIA EVALUATION NOTE : 1960 Procedure Summary Date: 08/25/23 Room / Location: OR04A / HL OR Anesthesia Start: 739 Anesthesia Stop: 943 Procedure: DECOMPRESSION LAMINECTOMY LUMBAR POSTERIOR LEVEL 1 (Right L4/5 MIS Decompression) (Right: Spine Lumbar) Diagnosis: Spinal stenosis of lumbar region with neurogenic claudication Radiculopathy, lumbar region (Spinal stenosis of lumbar region with neurogenic claudication [M48.062]) (Radiculopathy, lumbar region [M54.16]) Surgeons: Martha Lorenzo MD Responsible Provider: Valentina Barnes MD Anesthesia Type: general ASA Status: 3 Anesthesia Type: general Airway Type: ETT Last Vitals Vitals Value Taken Time BP 132/81 08/25/23 1100 Temp 36.5 ?C (97.7 ?F) 08/25/23 1035 Pulse 90 08/25/23 1104 Resp 12 08/25/23 1104 SpO2 93 % 08/25/23 1104 Vitals shown include unfiled device data. Post Anesthesia Patient Status Patient Evaluation: bedside. Neurological Status: sleepy but arousable. Pulmonary Status: breathing comfortably on supplemental oxygen Airway Control: returned to baseline unsupported. Cardiovascular Status: stable. Pain Management: clinically adequate Postoperative Hydration: acceptable. Intraoperative Events: no significant anesthesia events Recommendation: continue current plan of care. Anesthesia Observations No Documentation SIGNATURE: Valentina Barnes MD PATIENT NAME: Dima Nice DATE: August 25, 2023 TIME: 11:05 AM CSN: [id number] [facility] ANES PRE-OPon 08-25-2023 ANES PRE-OP HNO ID: [id number] Author: VALENTINA BARNES MD Service: Anesthesiology Author Type: Anesthesiologist Type: Anesthesia Preprocedure Evaluation Filed: 08/25/2023 07:12 Note Text: ANESTHESIOLOGY DAY OF SURGERY NOTE : 1960 Procedure Information Date/Time: 08/25/23729 Procedure: DECOMPRESSION LAMINECTOMY LUMBAR POSTERIOR LEVEL 1 (Right L4/5 MIS Decompression) (Right: Spine Lumbar) Location: HL OR04A / [facility] OR Surgeons: Martha Lorenzo MD Estimated body mass index is 47.37 kg/m? as calculated from the following: Height as of 08/11/23: 160 cm (5' 3"). Weight as of this encounter: 121.3 kg (267 lb 6.7 oz). Most recent hematocrit and potassium results: Hematocrit 38.8 08/04/2022 Potassium 4.3 08/04/2022 Relevant Problems CARDIO (+) Hypertension GI (+) Gastroesophageal reflux disease -RENAL (+) Hepatic steatosis PULMONARY (+) Asthma Psychiatry (+) Depression Other (+) Anxiety I - PHYSICAL EVALUATION AIRWAY Patient intubated: No. Tracheostomy tube not present Mallampati: III. TM distance: >3 FB. Neck ROM: full ROM without neurological symptoms. Mouth opening: adequate. Short neck: yes. Thick neck: no DENTAL Dental findings: teeth intact. II - ANESTHESIA PLAN ASA Score: 3 Anesthetic Plan: general Airway type: ETT The patient is a current smoker. NPO Status: adequate Beta Mark Monitoring Plan Monitoring plan: standard ASA. Post Procedure Analgesic Plan Postoperative analgesic plan: parenteral or oral opioids and per surgical service. Informed Consent Anesthetic risks, benefits, alternatives, personnel and consent discussed: yes. Patient / Responsible Alliance Party agrees to proceed: yes Patient / Surrogate agrees to blood products: Yes Potential Anesthesia issues that may suggest increased risk of complications or contraindication to planned procedure: none. Vitals Value Taken Time BP 120/76 08/25/23 0607 Pulse 67 08/25/23 0607 Resp 17 08/25/23 0607 Temp 36.7 ?C (98.1 ?F) 08/25/23 0607 SpO2 95 % 08/25/23 0607 Facility-Administered Medications as of 08/25/2023 Medication Dose Route Frequency [COMPLETED] acetaminophen 1,000 mg tab(s) (TYLENOL) 1,000 mg ORAL ONCE lidocaine 10 mg/mL (1 %) 1-2 mg injection (XYLOCAINE) 0.1-0.2 mL INTRADERMAL PRN NaCl 0.9% iv infusion 5-30 mL/hr INTRAVENOUS CONTINUOUS NaCl 0.9% iv flush bag 20 mL INTRAVENOUS PRN ceFAZolin 3 g in D5W 100 mL (ANCEF) 3 g INTRAVENOUS Machine Clothing Worker to OR Outpatient Medications as of 08/25/2023 Medication Sig LORazepam (ATIVAN) 0.5 mg rosuvastatin (CRESTOR) 40 mg tablet Take 40 mg by mouth once daily. allopurinol (ZYLOPRIM) 300 mg tablet TAKE 1/2 (ONE-HALF) TABLET BY MOUTH IN THE MORNING budesonide-formoterol (SYMBICORT) 80-4.5 mcg/actuation inhaler Inhale 2 Puffs as instructed twice daily. omeprazole (PRILOSEC) 20 mg capsule Take 1 capsule by mouth once daily. pravastatin (PRAVACHOL) 20 mg tablet Take 1 tablet by mouth once daily. meloxicam (MOBIC) 15 mg tablet Take 0.5 tablets by mouth twice daily. (Patient taking differently: Take 7.5 mg by mouth once daily.) cyclobenzaprine (FLEXERIL) 10 mg tablet Take 1 tablet by mouth three times daily as needed for muscle spasm. citalopram hydrobromide (CELEXA ORAL) Take 30 mg by mouth once daily. lisinopril (ZESTRIL, PRINIVIL) 20 mg tablet Take 20 mg by mouth once daily. HUMIRA,CF, PEN 40 mg/0.4 mL pen kit Inject 40 mg subcutaneously one time a week. Mondays cholecalciferol, Vitamin D3, (VITAMIN D3) 1,250 mcg (50,000 unit) cap capsule Take 1 capsule by mouth one time a week. albuterol HFA (PROAIR HFA) 90 mcg/actuation inhaler Inhale 2 Puffs as instructed every 6 hours as needed. I have interviewed and examined the patient. I have reviewed the medical record and/or the pre-anesthesia evaluation, pertinent labs, and test results. This contains updated information obtained within 48 hours of Surgery/Procedure. SIGNATURE: Valentina Barnes MD PATIENT NAME: Dima Nice DATE: August 25, 2023 TIME: 7:11 AM CSN: [id number] [facility] OPERATIVE NOon 08-25-2023 OPERATIVE NO HNO ID: [id number] Author: MARTHA LORENZO MD Service: Neurosurgery Author Type: Physician Type: Operative Report Filed: 08/25/2023 13:50 Note Text: OPERATIVE/PROCEDURE REPORT LOG ID: [id number] SURGERY/PROCEDURE DATE: 08/25/2023 INCISION/PROCEDURE START TIME: 8:24 AM INCISION CLOSE/PROCEDURE END TIME: 9:21 AM SURGEON(S)/PROCEDURALI ST(S) AND ASSEMBLER BILLIARD TABLE(S): Surgeon(s) and Role: * Martha Lorenzo MD - Primary Physician Continuous Process Machine Operator: Edinson Hale PA-C SURGERY/PROCEDURE(S): Right-sided minimally-invasive approach to bilateral L4-L5 hemilaminotomies for bilateral decompression C-arm fluoroscopy with independent interpretation Microscope with microdissection techniques ANESTHESIA: General SURGERY/PROCEDURE DETAILS: The patient was brought to the operative room where general anesthesia was induced. Preoperative antibiotics were administered. The patient was positioned prone on the operating room table. All pressure points were appropriately padded. A preoperative timeout was carried out with the entire operating room staff to verify the correct patient, surgical site, and procedure. The surgical site was then sterilely prepped and draped. After this, the midline palpated along the spinous processes was marked. A parallel line was then marked 1 cm to the right of midline. Placement of the percutaneous needle at the spinal level of interest was confirmed with C-arm fluoroscopy. An incision centered around the needle was marked. The planned incision was opened sharply with a #15 blade. The bovie cautery incised the deep dermis and adipose. The minimally-invasive tubular system dilated over the L4-L5 disc space. The final dilation was attached to the articulating arm. The correct position was confirmed with C-arm fluoroscopy, and the correct level was verified with PARKER GALINDO MD . The microscope was brought into the surgical field. The bovie cautery removed the muscle over the respective interspace. The highspeed soto removed the right caudal L4 and rostral L5 lamina. The ligamentum flavum was pealed off with the Kerrison rongeurs. The ipsilateral descending and exiting nerve roots were completely free. Attention was directed to the contralateral decompression. The tubular dilator was then medialized. The undersurface of the spinous process and left L4-L5 lamina was undercut with the highspeed soto. The ligamentum flavum was pealed off with the Kerrison rongeurs. The left descending and exiting nerve roots were completely free. The operative field was thoroughly inspected for any residual stenosis. After confirming adequate decompression, the wound was irrigated copiously with normal saline. Hemostasis was reinforced with hemostatic matrix. Methylprednisolone injectable suspension was applied into the surgical cavity. The wound was closed in successive layers with interrupted sutures and Monocryl for the skin. At the end of the procedure all counts were correct. At the conclusion of the operation, the patient was positioned supine on a hospital bed. PRE-OP/PRE-PROCEDURE DIAGNOSIS: spinal stenosis with neurogenic claudication POST-OP/POST-PROCEDURE DIAGNOSIS: Same as Preop ESTIMATED BLOOD LOSS: 5 mls SPECIMENS: None IMPLANTABLE DEVICES: NONE DRAINS: None COMPLICATIONS: None CLOSURE TECHNIQUE: Primary PARTICIPATION IN SURGERY/PROCEDURE: No qualified resident/fellow was available. Continuous Process Machine Operator PA assisted with opening, decompression, and closure SIGNATURE: Martha Lorenzo MD PATIENT NAME: Dima Nice DATE: August 25, 2023 TIME: 1:48 PM [facility] XR VERIFY LEVEL L-SPINE NBon 08-25-2023 IMPRESSION: Surgical instrument posteriorly at the L4-L5 interspace level. COMMUNICATION: Communicated with Dr. Lorenzo on 08/25/2023 at 08:35 via verbal communication. Transcribed Using Voice Recognition Transcribe Date/Time: Aug 25 2023 8:34A Dictated by: PARKER GALINDO MD This examination was interpreted and the report reviewed and electronically signed by: PARKER GALINDO MD on Aug 25 2023 8:35AM [facility] * * *Final Report* * * DATE OF EXAM: Aug 25 2023 8:32AM HCR 5642 - XR VERIFY LEVEL L-SPINE-NB / PROCEDURE REASON: LOCALIZATION * * * * Physician Interpretation * * * * RESULT: INDICATION: LOCALIZATION EXAMINATION: XR VERIFY LEVEL L-SPINE-NB COMPARISON:None RESULT: Fluoroscopic Radiation Summary: Plane A, Air Kerma: 4.1 mGy Dose Area Product (DAP): Fluoro time: 0:05 min:sec Crosstable lateral view lumbar spine was acquired intraoperatively using an image intensifier for the purposes of surgical level verification. There is a surgical instrument posteriorly at the level of the L4-L5 interspace. This information was verbally communicated to Dr. Pascal. [facility] Provider, [facility] - 08/25/2023 * * *Final Report* * * DATE OF EXAM: Aug 25 2023 8:32AM HCR 5642 - XR VERIFY LEVEL L-SPINE-NB / PROCEDURE REASON: LOCALIZATION * * * * Physician Interpretation * * * * RESULT: INDICATION: LOCALIZATION EXAMINATION: XR VERIFY LEVEL L-SPINE-NB COMPARISON:None RESULT: Fluoroscopic Radiation Summary: Plane A, Air Kerma: 4.1 mGy Dose Area Product (DAP): Fluoro time: 0:05 min:sec Crosstable lateral view lumbar spine was acquired intraoperatively using an image intensifier for the purposes of surgical level verification. There is a surgical instrument posteriorly at the level of the L4-L5 interspace. This information was verbally communicated to Dr. Pascal. IMPRESSION IMPRESSION: Surgical instrument posteriorly at the L4-L5 interspace level. COMMUNICATION: Communicated with Dr. Lorenzo on 08/25/2023 at 08:35 via verbal communication. Transcribed Using Voice Recognition Transcribe Date/Time: Aug 25 2023 8:34A Dictated by: PARKER GALINDO MD This examination was interpreted and the report reviewed and electronically signed by: PARKER GALINDO MD on Aug 25 2023 8:35AM EST [facility] Radiology Study observation (narrative) [facility] XR VERIFY LEVEL L-SPINE NBOr dered By: [facility] Provider on 08-25-2023 [facility] XR VERIFY LEVEL [id number] 08-25-2023 XR VERIFY LEVEL L-SPINE-NB * * *Final Report* * * DATE OF EXAM: Aug 25 2023 8:32AM HCR 5642 - XR VERIFY LEVEL L-SPINE-NB / PROCEDURE REASON: LOCALIZATION * * * * Physician Interpretation * * * * RESULT: INDICATION: LOCALIZATION EXAMINATION: XR VERIFY LEVEL L-SPINE-NB COMPARISON:None RESULT: Fluoroscopic Radiation Summary: Plane A, Air Kerma: 4.1 mGy Dose Area Product (DAP): Fluoro time: 0:05 min:sec Crosstable lateral view lumbar spine was acquired intraoperatively using an image intensifier for the purposes of surgical level verification. There is a surgical instrument posteriorly at the level of the L4-L5 interspace. This information was verbally communicated to Dr. Pascal. IMPRESSION: Surgical instrument posteriorly at the L4-L5 interspace level. COMMUNICATION: Communicated with Dr. Lorenzo on 08/25/2023 at 08:35 via verbal communication. Transcribed Using Voice Recognition Transcribe Date/Time: Aug 25 2023 8:34A Dictated by: PARKER GALINDO MD This examination was interpreted and the report reviewed and electronically signed by: PARKER GALINDO MD on Aug 25 2023 8:35AM EST [id number] Normal [facility] HISTORY PHYSICALon 07-10-202 4 HISTORY PHYSICAL HNO ID: [id number] Author: MARTHA LORENZO MD Service: Neurosurgery Author Type: Physician Type: H&P Filed: 08/24/2023 21:25 Note Text: UPDATED HISTORY AND PHYSICAL EXAMINATION SERVICE DATE: 08/25/2023 SERVICE TIME: 7:00 AM PHYSICAL EXAM MUST BE COMPLETED ON ADMISSION The History and Physical (completed in the past 30 days) has been reviewed and the patient has been examined. The contents accurately reflect the patient's condition with the following additions or revisions since the HANDP was completed. Examination indicates no changes. This HANDP can be found in the attached. SIGNATURE: Martha Lorenzo MD PATIENT NAME: Dima Nice DATE: August 25, 2023 TIME: 7:00 AM VIRTUAL SPINE SURGERY ESTABLISHED VISIT DATE OF SERVICE: 08/03/2023 DATE OF LAST VISIT: 07/13/2023 Virtual connection via: Zoom I have communicated my name and active licensure. The patient's identity and physical location were verified at the time of this visit. Either the patient or their legal treasury representative has been informed of the risks and benefits of -- and alternatives to -- treatment through a remote evaluation and consents to proceed with the evaluation remotely. SPINE SURGERY OUTPATIENT CLINIC VISIT SERVICE DATE: 07/13/2023 PCP: Casey Chang MD REFERRING PROVIDER: Gia Fernandes PA-C Consult requested for an opinion regarding the evaluation and treatment of a spinal pathology. My final impression and recommendations will be communicated back to the requesting physician by way of the shared medical record or letter via US mail. 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 To a much lesser extent, she reports left sided pain in the same distribution to a much lower extent. She reports right foot drop for two months. She reports low back pain much more mild (VAS 6/10). Lumbar injections three months ago provided only transient relief. 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 within the past 6 months EMG (07/28/23): right L5 radiculopathy without a peroneal neuropathy Extensive electrodiagnostic examination of the right lower extremity and additional nerve conduction studies of the left lower extremity reveals the following changes: . 1. Absent sural sensory response bilaterally is likely technical in nature and secondary to severe LE edema and body habitus. Thus, no definite evidence of a large fiber polyneuropathy. Clinical correlation is recommended. 2. Chronic motor axon loss changes consistent with intraspinal canal lesions/process affecting the right L5 root or segment (i.e, motor radiculopathy), mild in degree electrically, being accompanied by evidence of active or ongoing motor fiber loss in right EDB muscle. Limited contralateral NEE revealed no significant abnormalities. 3. No evidence of a right peroneal neuropathy. Bone Mineral Density ACTIVE PROBLEM LIST High Cholesterol Hypertension Vitamin D Deficiency PAST MEDICAL HISTORY Diagnosis Date Allergies Anxiety Arthritis Depression Gout Hiatal hernia High cholesterol Hydradenitis Hypertension Lyme disease triggered severe arthritis Vitamin D deficiency PAST SURGICAL HISTORY Procedure Laterality Date APPENDECTOMY HX BIOPSY BREAST benign COLONOSCOPY SCREENING 30 years ago per patient HYSTERECTOMY FAMILY HISTORY Problem Relation Age of Onset Immune Deficiency Mother Celiac Disease Father Heart Father Diabetes Paternal Grandmother Celiac Disease Other many family members Colon Cancer No Family History Social History Tobacco Use Smoking status: Every Day Packs/day: 1 Types: Cigarettes Start date: 12/25/1973 Smokeless tobacco: Never Vaping Use Vaping Use: Never used Substance Use Topics Alcohol use: Yes Alcohol/week: 3.0 standard drinks of alcohol Types: 3 Glasses of Wine (5oz) per week Comment: couple times/week Drug use: Never Comment: has medical marijuana card ALLERGIES Allergen Reactions Codeine Other: See Comments Mind changes MEDICATIONS: LORazepam (ATIVAN) 0.5 mg rosuvastatin (CRESTOR) 40 mg tablet Take 40 mg by mouth once daily. allopurinol (ZYLOPRIM) 300 mg tablet TAKE 1/2 (ONE-HALF) TABLET BY MOUTH IN THE MORNING budesonide-formoterol (SYMBICORT) 80-4.5 mcg/actuation inhaler Inhale 2 Puffs as instructed twice daily. HUMIRA,CF, PEN 40 mg/0.4 mL pen kit omeprazole (PRILOSEC) 20 mg capsule Take 1 capsule by mouth once daily. pravastatin (PRAVACHOL) 20 mg tablet Take 1 tablet by mouth once daily. meloxicam (MOBIC) 15 mg tablet Take 0.5 tablets by mouth twice daily. cholecalciferol, Vitamin D3, (VITAMIN D3) 1,250 mcg (50,000 unit) cap capsule Take 1 capsule by (more content not included)... Normal [facility] CT LUMBAR SPINE WO IVCONon 0 08-16-2023 CT LUMBAR SPINE WO IVCON * * *Final Report* * * DATE OF EXAM: Aug 16 2023 5:14PM [facility] [place] LUMBAR [place]INE WO IVCON / PROCEDURE REASON: M48.062-Spinal stenosis of lumbar region with neurogenic claudication * * * * Physician Interpretation * * * * EXAMINATION: CT LUMBAR SPINE WO IVCON CLINICAL HISTORY: Right lower extremity pain TECHNIQUE: Spiral, high resolution axial unenhanced images were obtained from the thoracolumbar junction to the sacrum with sagittal and coronal planar reconstructions. MQ: [id number] CT Radiation dose: Integrated Dose-Length Product (DLP) for this visit = 1481 mGy*cm. CT Dose Reduction Employed: Automated exposure control(AEC) and iterative recon COMPARISON: Lumbar MRI -24 RESULT: Counting reference: Lumbosacral junction. For the purposes of this report, L4-5 is considered the level of the iliac crest and assume there are 5 lumbar-type vertebrae. Anatomic variant: None. Pepper Cutter (topogram) images: No additional findings Alignment: Redemonstrated is previous grade 1 anterolisthesis of L4 on L5, of about 4 mm, not associated with any pars defect, and most likely degenerative in etiology. There is no change. Bone marrow /fracture: No evidence of a lytic or blastic process in the visualized spine. No evidence of acute or chronic fracture. Paraspinal soft tissues: The paraspinal soft tissues planes are maintained. Lower thoracic spine: The visualized lower thoracic bony canal and foramina are patent. L1-L2: Canal and foramina remain patent L2-L3: Mild circumferential bulging with mild central narrowing, overall Canal and foramina remain patent L3-L4: Mild circumferential bulging and central narrowing, with mild bilateral foraminal narrowing, unchanged L4-L5: Redemonstration of a moderate-severe central stenosis, secondary to listhesis and some facet remodeling. There remains moderate-severe right and mild-moderate left foraminal narrowing, stable L5-S1: Canal remains patent, with stable moderate right and mild left foraminal narrowing Sacrum and iliac wings: The visualized sacrum and iliac wings are within normal limits. IMPRESSION: 1. CENTRAL NARROWING REMAINS GREATEST AT MODERATE-SEVERE L4-5, UNCHANGED 2. FORAMINAL NARROWING REMAINS GREATEST AT MODERATE-SEVERE RIGHT L4-5, UNCHANGED, WITH OTHER LESSER CHANGES DETAILED 3. OVERALL STABLE EXAMINATION Anatomic Lumbar Variant: None. L4-5 is considered the level of the iliac crest and assume there are 5 lumbar-type vertebrae. Chief Nursing Executive: [facility] Transcribe Date/Time: Aug 17 2023 8:10A Dictated by : JULIETH MONK MD This examination was interpreted and the report reviewed and electronically signed by: JULIETH MONK MD on Aug 17 2023 8:18AM EST [id number] [facility] XR SCOLIOSIS 2V PA STAND/LAT on 08-16-2023 XR SCOLIOSIS 2V PA STAND/LAT * * *Final Report* * * DATE OF EXAM: Aug 16 2023 5:37PM MDX 5251 - XR SCOLIOSIS 2V PA STAND/LAT / PROCEDURE REASON: multiple diagnoses * * * * Physician Interpretation * * * * PROCEDURE: Scoliosis INDICATION: Radiculopathy, lumbar region Spinal stenosis of lumbar region with neurogenic claudication .concern for abnormal curvature of lumbar spine TECHNIQUE: XR SCOLIOSIS 2V PA STAND/LAT COMPARISON: None FINDINGS: Approximately 11 degrees of dextroscoliosis measured from the top of T11 to bottom of L5. Mild L4-5 anterolisthesis. No exaggerated kyphosis or lordosis. Mild degenerative change from the lower cervical spine through the lumbosacral junction. IMPRESSION: Mild scoliosis and spondylosis. Chief Nursing Executive: [facility] Transcribe Date/Time: Aug 20 2023 7:43A Dictated by : FLETCHER CONTI MD This examination was interpreted and the report reviewed and electronically signed by: FLETCHER CONTI MD on Aug 20 2023 7:45AM EST [id number] [facility] Tele[facility] ([facility]) DIMA NICE ([id number]) 1960 F Date Time Provider Department 08/15/[facility] During your visit today, we recorded the following information about you: Karley Mccarthy, RN 08/15/2023 3:57 PM Signed NEUROSURGERY CARE COORDINATION [facility] PRE-OP EDUCATION TELEPHONE CALL Patient scheduled for Right L4/[address] Lorenzo for 08/24 at [facility]. Noted medical clearance pending both x-ray scoliosis and CT lumbar spine to be completed as ordered prior to surgery per Dr. Lorenzo, this RN to f/u with this, and noted financial clearance obtained. Called patient at home/mobile phone number, name and verified. Spoke with patient Dima Nice for pre-op education. Given, previously mailed, see encounter dated 08/01 regarding this, both written and verbal instructions regarding: pre-op skin preparation and post-op pain management, wound care, and restrictions. Provided, previously mailed, see encounter dated 08/01 regarding this, to patient and discussed the following education materials and supplies: [facility] 1st Floor, Spine Surgery Pre-/Post-Op Instructions, Skin Preparation AND NPO Instructions including Hibiclens AND CHG wipes, Pain Management After Spine Surgery, Smoking AND Spine Surgery, and Preparing for Surgery Card? Yes. Patient states already purchased Hibiclens soap. Discussed recommendation and provided education material to have Advance Directives completed? Yes. Provided [facility] Power of Wireline Supervisor form? No. Provided [facility] Will form? No. Does patient already have forms completed and scanned into system or were forms scanned during this visit? No; patient going to complete and then bring in to be uploaded to chart, discussed process here. Reviewed with patient to have pre-testing done within 30 days of scheduled surgery and phone number provided to call and schedule? Yes; PACC appointment completed on 08/10 and patient cleared and ready for surgery pending both x-ray scoliosis and CT lumbar spine, noted scheduled for tomorrow 08/15, this RN to f/u with this, patient aware, reviewed and relayed PACC provider instructions, including medications, see notes, states understanding. Reviewed with patient that Pre-Op will call between 2PM-5PM with time to arrive for surgery the next day? Yes. Reviewed with patient that they will report to Pre/Post Op Services desk day of surgery? Yes. Does patient have transportation to and from surgery? Yes. Patient aware surgery anticipated to be OUTPATIENT. Discussed anticipated care after discharge to be self care, HHC, and/or acute rehab. Post-op support: sister. Falls Education provided? Yes. Additional comments: Pre-Op Melissa Educational video previously ordered, patient aware. Questions and concerns answered and patient verbalized understanding via teach back. Instructed to call office as needed, office phone number provided. CONRADO Farah, RN August 15, 2023 3:57 PM Allergies As of Date: 08/15/2023 Noted Allergy Reaction CODEINE 07/17/2017 14 - Other: See Comments Comments: Mind changes Date Reviewed: 08/11/2023 Reviewed by: Sharee Nolan LPN - Fully Assessed Reason for Visit: Pre-Op Teaching [134] Cmt: DOS 08/25/2023 Prescriptions as of 08/15/2023 - baclofen 15 mg tablet Take 10 mg by mouth as needed. - fluticasone prp-sod.chl,bicarb 50 mcg- 0.9 % ksps Use 2 Sprays in the nose once daily. - traMADol (ULTRAM) 50 mg tablet Take 50 mg by mouth every 8 hours as needed for pain. - chlorthalidone (HYGROTON) 25 mg tablet Take 25 mg by mouth once daily. - LORazepam (ATIVAN) 0.5 mg - rosuvastatin (CRESTOR) 40 mg tablet Take 40 mg by mouth once daily. - allopurinol (ZYLOPRIM) 300 mg tablet TAKE 1/2 (ONE-HALF) TABLET BY MOUTH IN THE MORNING - budesonide-formoterol (SYMBICORT) 80-4.5 mcg/actuation inhaler Inhale 2 Puffs as instructed twice daily. - HUMIRA,CF, PEN 40 mg/0.4 mL pen kit Inject 40 mg subcutaneously one time a week. Mondays - omeprazole (PRILOSEC) 20 mg capsule Take 1 capsule by mouth once daily. - pravastatin (PRAVACHOL) 20 mg tablet Take 1 tablet by mouth once daily. - meloxicam (MOBIC) 15 mg tablet Take 0.5 tablets by mouth twice daily. - cholecalciferol, Vitamin D3, (VITAMIN D3) 1,250 mcg (50,000 unit) cap capsule Take 1 capsule by mouth one time a week. - cyclobenzaprine (FLEXERIL) 10 mg tablet Take 1 tablet by mouth three times daily as needed for muscle spasm. - citalopram hydrobromide (CELEXA ORAL) Take 30 mg by mouth once daily. - lisinopril (ZESTRIL, PRINIVIL) 20 mg tablet Take 20 mg by mouth once daily. - albuterol HFA (PROAIR HFA) 90 mcg/actuation inhaler Inhale 2 Puffs as instructed every 6 hours as needed. Problem List As Of Date 08/15/2023 Noted Resolved High cho (more content not included)... Normal [facility] HISTORY PHYSICALon HISTORY PHYSICAL HNO ID: [id number] Author: RUTH WILCOX PA-C Service: ? Author Type: Physician Continuous Process Machine Operator Type: H&P Filed: 08/11/2023 15:57 Note Text: HISTORY AND PHYSICAL EXAMINATION SERVICE DATE: 08/11/2023 SERVICE TIME: 3:57 PM PRIMARY CARE PHYSICIAN: Casey Chang MD REASON FOR VISIT: Dima Nice is a 63 year old female who is scheduled for Procedure(s): DECOMPRESSION LAMINECTOMY LUMBAR POSTERIOR LEVEL 1 (Right L4/5 MIS Decompression) (Right) at the request of Martha Upton MD for consultation. My final recommendation will be communicated back to the requesting physician by way of shared medical record or letter. Subjective The patient has the following: ACTIVE PROBLEM LIST High Cholesterol Hypertension Vitamin D Deficiency Anxiety Asthma Depression Flaccid Tetraplegia (Hcc) Hepatic Steatosis Gastroesophageal Reflux Disease Hidradenitis Suppurativa COVID-19 Immunization Status Overdue - Covid-19 Vaccine () Overdue since 04/14/2023 02/17/2023 Imm Admin: COVID-19 vaccine, age 12+ yr, season ([email or web address]) 06/30/2021 Imm Admin: COVID-19 original vaccine, age 12+ yr, monovalent ([employer] BURNS [employer]) 12/11/2020 Imm Admin: COVID-19 original vaccine, age 12+ yr, monovalent ([employer] PURPLE [employer]) Only the first 3 history entries have been loaded, but more history exists. CHIEF COMPLAINT: pre op HPI: Dima Nice is a 63 year old female presenting for pre-anesthesia consultation. Pt has history of lumbar spinal stenosis. Above procedure recommended to manage symptoms. Procedure scheduled on 08/25/2023 at [facility]. REVIEW OF SYSTEMS: General: No weight loss, malaise or fevers. Neurological: Positive for: seizures (One seizure as a child, never recurred, never on medications). Negative for: headaches, multiple sclerosis, Parkinson's disease, peripheral neuropathy, TIA and strokes. Respiratory: Positive for: asthma, COPD and tobacco use. Negative for: current cough, dyspnea, home oxygen, URI < 2 weeks and obstructive sleep apnea. Cardiovascular: Denies dizziness or syncope. Positive for: hyperlipidemia and hypertension Negative for: AICD/PPM, arrhythmia, CAD, chest pain, CHF, DVT/PE, recent MD, murmur/valvular heart disease, open heart surgery and valve surgery. GI: Positive for: GERD (HH) Negative for: abdominal pain, GI bleed <30 days, hepatitis, liver disease, nausea and vomiting. : Denies kidney disease Positive for: frequent urination and urgency. Negative for: dysuria, hematuria and urinary tract infection. Endocrine: Negative for: diabetes mellitus, hyperthyroidism and hypothyroidism. Hematology: Negative for: anemia, bruises/bleeds easily, factor V Leiden, hemophilia, thrombocytopenia and von Willebrand disease. Oncology: No history of CA metastasis, chemo within 30 days, or radiotherapy within 90 days. No history of oncological symptoms or problems. Psych: Positive for: anxiety (Lorazepam PRN - rare use) and depression. Negative for: bipolar disorder. Musculoskeletal: See HPI. Skin: Chronic skin issues comment: Humira once a week - HS PAST MEDICAL HISTORY Diagnosis Date Allergies Anxiety Arthritis Depression Gout Hiatal hernia High cholesterol Hydradenitis Hypertension Lyme disease triggered severe arthritis Vitamin D deficiency PAST SURGICAL HISTORY Procedure Laterality Date APPENDECTOMY HX BIOPSY BREAST benign COLONOSCOPY SCREENING 30 years ago per patient HYSTERECTOMY FAMILY HISTORY Problem Relation Age of Onset Immune Deficiency Mother Celiac Disease Father Heart Father Diabetes Paternal Grandmother Celiac Disease Other many family members Colon Cancer No Family History Anesthesia Problems No Family History Social History Tobacco Use Smoking status: Every Day Packs/day: 1 Types: Cigarettes Start date: 12/25/1973 Smokeless tobacco: Never Tobacco comments: 5/ day, nicotine patches Vaping Use Vaping Use: Never used Substance Use Topics Alcohol use: Yes Alcohol/week: 3.0 standard drinks of alcohol Types: 3 Glasses of Wine (5oz) per week Comment: couple times/week Drug use: Not Currently Types: Marijuana Comment: has medical marijuana card, hasn't used since June 2023 Prior to Admission medications as of 07/13/23 0956 Medication Sig Last Dose Taking baclofen 15 mg tablet Take 10 mg by mouth as needed. Taking Yes fluticasone prp-sod.chl,bicarb 50 mcg- 0.9 % ksps Use 2 Sprays in the nose once daily. Taking Yes traMADol (ULTRAM) 50 mg tablet Take 50 mg by mouth every 8 hours as needed for pain. Taking Yes chlorthalidone (HYGROTON) 25 mg tablet Take 25 mg by mouth once daily. Taking Yes LORazepam (ATIVAN) 0.5 mg Taking Yes rosuvastatin (CRESTOR) 40 mg tablet Take 40 mg by mouth once daily. Taking Yes allopurinol (ZYLOPRIM) 300 mg tablet TAKE 1/2 (ONE-HALF) TABLET BY MOUTH (more content not included)... Normal [facility] STAPHYLOCOCCUS AUREUS AND MR SA SCREEN, PCR, NASALon 08-11-2023 S. aureus and MRSA panel SOCORRO+probe (Nose) Not detected Normal Not Detected [facility] Comment on above: Order Comment: Speci men Type: SWAB Ordering Facility: [facility] Address: [address] [place] [address] Performed By: #### S APCR #### [facility] CLIA [id number] [address] [place], [place] [address] [address] [place] CNPNancy 08-09-2023 CNPN Telephone ([facility]) DIMA NICE ([id number]) 1960 F Date Time Provider Department 08/09/23 MARTHA LORENZO [facility] During your visit today, we recorded the following information about you: Juanita Gallegos 08/09/2023 11:06 AM Signed Call received for Martha Lorenzo MD regarding Dima Nice 1960. Caller/Self: Dima Nice Patient Identified by Name and : Yes Was permission obtained from patient ? Yes Reason for Call: Ms. Nice has 2 questions she would like answered as soon as possible 1) Can she continue taking her Humira up to surgery date? 2) Her pain management doctor would like her to get a nerve block. Can she get a nerve block 2 1/2 weeks prior to surgery? She would like to Last Distance Health Visit: 08/02/[address] Lorenzo Next scheduled appointment: Surgery on 08/25/[address] Lorenzo Best number to reach caller: [phone] Is it OK to leave a detailed voice message? Yes Karley Brooks, RIANA 08/09/2023 11:13 AM Signed NEUROSURGERY CARE COORDINATION [facility] QUICK NOTE Chart reviewed. Patient scheduled for Right L4/[address] Lorenzo for 08/24 at [facility]. Returned call to patient at phone number below, verified name and , discussed below, aware to receive Humira instructions from ordering/managing provider and aware this will also be reviewed during upcoming PACC appointment scheduled for 08/10, states unsure of exact injection being recommended by pain management team at this time, states will contact pain management team and then notify this office and this RN afterwards of exact injection, aware that this RN will then confirm with NSGY team if OK to proceed with injection prior to surgery with Dr. Lorenzo, states understanding. CONRADO Farah, RN August 09, 2023 11:12 AM Karley Mccarthy RN 08/09/2023 11:36 AM Signed NEUROSURGERY CARE COORDINATION [facility] QUICK NOTE Notified by Market Analyst that patient returned call to office at this time, call transferred to this RN, name verified, states pain management team recommending nerve block in lower lumbar spine, informed message will be sent to NSGY team with Dr. Lorenzo regarding this and that response will be relayed afterwards, states understanding. Routing to NSGY team. CONRADO Farah, RN August 09, 2023 11:35 AM Karley Mccarthy RN 08/12/2023 11:33 AM Addendum NEUROSURGERY CARE COORDINATION [place] QUICK NOTE See below response per CLASSROOM TECHNOLOGY TECHNICIAN. Returned call to patient at phone number below, verified name and , relayed and discussed below per CLASSROOM TECHNOLOGY TECHNICIAN, states understanding, denies needing anything further, instructed to contact office again as needed. No further action required by this RN at this time. Katie Hammond APRN.[facility] Nurse Kamryn now (11:24 AM) Lisa I talked to Dr. Lorenzo and he said no to injection before surgery. Thank you Katie" CONRADO Farah, RN August 12, 2023 11:33 AM Allergies As of Date: 08/09/2023 Noted Allergy Reaction CODEINE 07/17/2017 14 - Other: See Comments Comments: Mind changes Date Reviewed: 07/13/2023 Reviewed by: Martha Lorenzo MD - Fully Assessed Reason for Visit: Patient Question [2077] Prescriptions as of 08/12/2023 - baclofen 15 mg tablet Take 10 mg by mouth as needed. - fluticasone prp-sod.chl,bicarb 50 mcg- 0.9 % ksps Use 2 Sprays in the nose once daily. - traMADol (ULTRAM) 50 mg tablet Take 50 mg by mouth every 8 hours as needed for pain. - chlorthalidone (HYGROTON) 25 mg tablet Take 25 mg by mouth once daily. - LORazepam (ATIVAN) 0.5 mg - rosuvastatin (CRESTOR) 40 mg tablet Take 40 mg by mouth once daily. - allopurinol (ZYLOPRIM) 300 mg tablet TAKE 1/2 (ONE-HALF) TABLET BY MOUTH IN THE MORNING - budesonide-formoterol (SYMBICORT) 80-4.5 mcg/actuation inhaler Inhale 2 Puffs as instructed twice daily. - HUMIRA,CF, PEN 40 mg/0.4 mL pen kit Inject 40 mg subcutaneously one time a week. Mondays - omeprazole (PRILOSEC) 20 mg capsule Take 1 capsule by mouth once daily. - pravastatin (PRAVACHOL) 20 mg tablet Take 1 tablet by mouth once daily. - meloxicam (MOBIC) 15 mg tablet Take 0.5 tablets by mouth twice daily. - cholecalciferol, Vitamin D3, (VITAMIN D3) 1,250 mcg (50,000 unit) cap capsule Take 1 capsule by mouth one time a week. - cyclobenzaprine (FLEXERIL) 10 mg tablet Take 1 tablet by mouth three times daily as needed for muscle spasm. - citalopram hydrobromide (CELEXA ORAL) Take 30 mg by mouth once daily. - lisinopril (ZESTRIL, PRINIVIL) 20 mg tablet Take 20 mg by mouth once daily. - albuterol HFA (PROAIR HFA) 90 mcg/actuation inhaler Inhale 2 Puffs as instructed every 6 hours as needed. Problem List As Of Date 08/09/2023 Noted Resolved High cholesterol [E78.00] 12/25/2020 Hypertension [I10] 12/25/2020 Vitamin D deficiency [E55.9] (more content not included)... Normal [facility] DIMA NICE ([id number]) 1960 F Date Time Provider Department 08/04/23 MARTHA LORENZO [facility] During your visit today, we recorded the following information about you: Kathrin Sotelo 08/04/2023 9:27 AM Signed Spoke with pt to schedule PACC, She requested a call back tomorrow Allergies As of Date: 08/04/2023 Noted Allergy Reaction CODEINE 07/17/2017 14 - Other: See Comments Comments: Mind changes Date Reviewed: 07/13/2023 Reviewed by: Martha Lorenzo MD - Fully Assessed Prescriptions as of 08/04/2023 - LORazepam (ATIVAN) 0.5 mg - rosuvastatin (CRESTOR) 40 mg tablet Take 40 mg by mouth once daily. - allopurinol (ZYLOPRIM) 300 mg tablet TAKE 1/2 (ONE-HALF) TABLET BY MOUTH IN THE MORNING - budesonide-formoterol (SYMBICORT) 80-4.5 mcg/actuation inhaler Inhale 2 Puffs as instructed twice daily. - HUMADAMCF, PEN 40 mg/0.4 mL pen kit - omeprazole (PRILOSEC) 20 mg capsule Take 1 capsule by mouth once daily. - pravastatin (PRAVACHOL) 20 mg tablet Take 1 tablet by mouth once daily. - meloxicam (MOBIC) 15 mg tablet Take 0.5 tablets by mouth twice daily. - cholecalciferol, Vitamin D3, (VITAMIN D3) 1,250 mcg (50,000 unit) cap capsule Take 1 capsule by mouth one time a week. - cyclobenzaprine (FLEXERIL) 10 mg tablet Take 1 tablet by mouth three times daily as needed for muscle spasm. - citalopram hydrobromide (CELEXA ORAL) Take 30 mg by mouth once daily. - lisinopril (ZESTRIL, PRINIVIL) 20 mg tablet Take 20 mg by mouth once daily. - albuterol HFA (PROAIR HFA) 90 mcg/actuation inhaler Inhale 2 Puffs as instructed every 6 hours as needed. Problem List As Of Date 08/04/2023 Noted Resolved High cholesterol [E78.00] 12/25/2020 Hypertension [I10] 12/25/2020 Vitamin D deficiency [E55.9] 12/25/2020 Encounter Status:Closed by KATHRIN SOTELO on 08/04/23 [facility] Telephone ([facility]) DIMA NICE ([id number]) 1960 F Date Time Provider Department 08/04/23 MARTHA LORENZO [facility] During your visit today, we recorded the following information about you: Amrita Hernandez 08/04/2023 4:34 PM Signed Call received for Martha Lorenzo MD regarding Dima Nice 1960. Caller: Self Patient Identified by Name and : Yes Was permission obtained from patient ? Yes Reason for Call: Patient requesting that "Trek For Success" video be available for view in her MC. Patient was informed to contact office for video access. Last Office Visit: 07/13/2023 Next scheduled appointment: 10/03/2023 Best number to reach caller: N/A Karley Monique RN 08/04/2023 4:52 PM Signed NEUROSURGERY CARE COORDINATION [facility] QUICK NOTE Chart reviewed. Patient scheduled for Right L4/[address] Lorenzo for 08/24 at [facility]. Noted trek for surgical success class scheduled for 08/23. Returned call to patient at phone number below, verified name and , discussed below, discussed trek for surgical success class, all questions answered, states understanding, denies needing anything further, instructed to contact office again as needed. No further action required by this RN at this time. CONRADO Farah, RN August 04, 2023 4:52 PM Allergies As of Date: 08/04/2023 Noted Allergy Reaction CODEINE 07/17/2017 14 - Other: See Comments Comments: Mind changes Date Reviewed: 07/13/2023 Reviewed by: Martha Lorenzo MD - Fully Assessed Reason for Visit: Patient Question [3944] Prescriptions as of 08/04/2023 - LORazepam (ATIVAN) 0.5 mg - rosuvastatin (CRESTOR) 40 mg tablet Take 40 mg by mouth once daily. - allopurinol (ZYLOPRIM) 300 mg tablet TAKE 1/2 (ONE-HALF) TABLET BY MOUTH IN THE MORNING - budesonide-formoterol (SYMBICORT) 80-4.5 mcg/actuation inhaler Inhale 2 Puffs as instructed twice daily. - HUMIRA,CF, PEN 40 mg/0.4 mL pen kit - omeprazole (PRILOSEC) 20 mg capsule Take 1 capsule by mouth once daily. - pravastatin (PRAVACHOL) 20 mg tablet Take 1 tablet by mouth once daily. - meloxicam (MOBIC) 15 mg tablet Take 0.5 tablets by mouth twice daily. - cholecalciferol, Vitamin D3, (VITAMIN D3) 1,250 mcg (50,000 unit) cap capsule Take 1 capsule by mouth one time a week. - cyclobenzaprine (FLEXERIL) 10 mg tablet Take 1 tablet by mouth three times daily as needed for muscle spasm. - citalopram hydrobromide (CELEXA ORAL) Take 30 mg by mouth once daily. - lisinopril (ZESTRIL, PRINIVIL) 20 mg tablet Take 20 mg by mouth once daily. - albuterol HFA (PROAIR HFA) 90 mcg/actuation inhaler Inhale 2 Puffs as instructed every 6 hours as needed. Problem List As Of Date 08/04/2023 Noted Resolved High cholesterol [E78.00] 12/25/2020 Hypertension [I10] 12/25/2020 Vitamin D deficiency [E55.9] 12/25/2020 Encounter Status:Closed by KARLEY CMCARTHY on 08/04/23 [facility] 08-02-2023 [facility] Telephone ([facility]) DIMA NICE ([id number]) 1960 F Date Time Provider Department 08/02/23 MARTHA LORENZO [facility] During your visit today, we recorded the following information about you: Karley Mccarthy, RIANA 08/03/2023 12:07 PM Signed NEUROSURGERY CARE COORDINATION [facility] SURGERY SCHEDULING ? See Dr. Lorenzo's ANDRES note dated yesterday 08/01. Called patient at home/mobile phone number, verified name and . Spoke with patient. Discussed surgery scheduling process. Patient Dima Nice accepts surgery date of August [address] Lorenzo at [facility]. Planned procedure is Right L4/5 MIS Decompression. Discussed need for both medical clearance and financial clearance prior to scheduled surgery and discussed process of both. ? PAT will be completed at [facility]; informed message will be sent to front tender staff shortly to call patient in order to assist with scheduling this appointment, this RN to f/u with this, PACC questionnaire completed. ? Medications reviewed: Yes. Medications to be stopped prior to surgery: NSAIDS and vitamins and supplements to be stopped for 7 days prior to scheduled surgery. ? Additional pre-op clearances needed: per [facility] provider recommendations. ? Any implanted devices: No. ? Transplant History: No. ? Patient will require optimization lab work: per [facility] provider recommendations. ? Questions answered. Patient verbalizes understanding via teach back. ? Additional comments: Discussed need for PACC appointment prior to scheduled surgery and discussed process of this, see above, pre-op COVID test not needed d/t current [facility] policy stating no longer needed prior to surgery. Informed Pre-/Post-Op Education materials will be mailed to patient and informed that this RN will call patient closer to DOS in order to provide education over telephone, patient to purchase Hibiclens soap from any local pharmacy, patient also aware can draft roller picker both Hibiclens soap and CHG wipes at front tender of this office. Discussed process of having both x-ray scoliosis and CT lumbar spine completed as ordered prior to surgery per Dr. Lorenzo, this RN to f/u with this. Discussed recommended but optional trek for surgical success class and provided information sheet. Pre-Op Melissa Educational video also ordered. All questions answered, states understanding, instructed to contact office as needed. Staff message to be sent to Dr. Lorenzo's Market Analyst shortly in order to notify of scheduled surgery. This RN to f/u with this. No further action required by this RN at this time. CONRADO Farah, RN August 03, 2023 12:02 PM Karley Mccarthy, RIANA 08/09/2023 9:20 AM Signed NEUROSURGERY CARE COORDINATION [facility] SURGERY SCHEDULING Spine Surgery Pre-/Post-Op Instructions, Skin Preparation AND NPO Instructions including Hibiclens AND CHG wipes, Map of [facility] 1st Floor, Pain Management After Spine Surgery, Smoking AND Spine Surgery, Preparing for Surgery Card, About Advance Directives handout, and trek for surgical success class handout placed in envelope with patient mail label and envelope placed in outgoing mailbox at front tender of this office. CONRADO Farah, RN August 09, 2023 9:18 AM Allergies As of Date: 08/02/2023 Noted Allergy Reaction CODEINE 07/17/2017 14 - Other: See Comments Comments: Mind changes Date Reviewed: 07/13/2023 Reviewed by: Martha Lorenzo MD - Fully Assessed Reason for Visit: Schedule Surgery [1330] Primary Visit Diagnosis:Radiculopath y, lumbar region [M54.16] Other Visit Diagnosis:Spinal stenosis of lumbar region with neurogenic claudication [M48.062] Order(s):PT ED NEUROLOGY [[id number]] Order #: [id number]: 1 Prescriptions as of 08/09/2023 - LORazepam (ATIVAN) 0.5 mg - rosuvastatin (CRESTOR) 40 mg tablet Take 40 mg by mouth once daily. - allopurinol (ZYLOPRIM) 300 mg tablet TAKE 1/2 (ONE-HALF) TABLET BY MOUTH IN THE MORNING - budesonide-formoterol (SYMBICORT) 80-4.5 mcg/actuation inhaler Inhale 2 Puffs as instructed twice daily. - HUMIRA,CF, PEN 40 mg/0.4 mL pen kit - omeprazole (PRILOSEC) 20 mg capsule Take 1 capsule by mouth once daily. - pravastatin (PRAVACHOL) 20 mg tablet Take 1 tablet by mouth once daily. - meloxicam (MOBIC) 15 mg tablet Take 0.5 tablets by mouth twice daily. - cholecalciferol, Vitamin D3, (VITAMIN D3) 1,250 mcg (50,000 unit) cap capsule Take 1 capsule by mouth one time a week. - cyclobenzaprine (FLEXERIL) 10 mg tablet Take 1 tablet by mouth three times daily as needed for muscle spasm. - citalopram hydrobromide (CELEXA ORAL) Take 30 mg by mouth once daily. - lisinopril (ZESTRIL, PRINIVIL) 20 mg tablet Take 20 mg by mouth once daily. - albuterol HFA (PROAIR HFA) 90 mcg/actuation inhaler Inhale 2 Puffs as instructed every 6 hours as needed. Problem List As Of Date 08/02/2023 (more content not included)... Normal [facility] ECG 12 leadon 07-28-2023 [facility] EMG(NEURO/NI)on 07-28-2023 Results can be seen in attached scanned documents. If you are a patient reviewing this test result, call the doctor who ordered the test with any questions. [facility] CBC W Auto Differential pane l (Bld)on 07-18-2023 Basophils (Bld) [#/Vol] 0.04 x10*3/uL Normal 0.00-0.10 [facility] Comment on above: Performed By: #### 5 7021-8 #### ROSSANA Cope ([id number]) [facility] ([place]) [id number] [place] [address] Basophils/100 WBC (Bld) 0.6 % Normal 0.0-2.0 [facility] Comment on above: Performed By: #### 5 7021-8 #### ROSSANA Cope ([id number]) [facility] ([place]) [id number] [place] [address] Eosinophils (Bld) [#/Vol] 0.16 x10*3/uL Normal 0.00-0.70 [facility] [facility] Comment on above: Performed By: #### 5 7021-8 #### ROSSANA Cope ([id number]) [facility] ([place]) [address] [place] [address] 54038 Eosinophils/100 WBC (Bld) 2.5 % Normal 0.0-6.0 [facility] Comment on above: Performed By: #### 5 7021-8 #### ROSSANA Cope ([id number]) [facility] ([place]) [id number] [place] [address] 32465 Erythrocyte distribution width (RBC) [Ratio] 15.1 % High 11.5-14.5 [facility] Comment on above: Performed By: #### 5 7021-8 #### ROSSANA Cope ([id number]) [facility] ([place]) [address] [place] [address] 16540 Hematocrit (Bld) [Volume fraction] 40.2 % Normal 36.0-46.0 [facility] Comment on above: Performed By: #### 5 7021-8 #### ROSSANA VANCETZER L ([id number]) [facility] ([place]) [address] [place] [address] 91140 Hemoglobin (Bld) [Mass/Vol] 12.5 g/dL Normal 12.0-16.0 [facility] Comment on above: Performed By: #### 5 7021-8 #### ROSSANA HAGENMOTZER L ([id number]) [facility] ([place]) [address] [place] [address] 10421 Immature granulocytes (Bld) [#/Vol] 0.02 x10*3/uL Normal 0.00-0.70 [facility] Comment on above: Performed By: #### 5 7021-8 #### ROSSANA VANCETZFERNANDA L ([id number]) [facility] ([place]) [address] [place] [address] 13805 Immature granulocytes/100 WBC (Bld) 0.3 % Normal 0.0-0.9 [facility] Comment on above: Result Comment: Anuradha ture Granulocyte Count (IG) includes promyelocytes, myelocytes and metamyelocytes but does not include bands. Percent differential counts (%) should be interpreted in the context of the absolute cell counts (cells/UL). Performed By: #### 5 7021-8 #### ROSSANA LYNCH L ([id number]) [facility] ([place] [address] [place] [address] 69366 Lymphocytes (Bld) [#/Vol] 2.14 x10*3/uL Normal 1.20-4.80 [facility] Comment on above: Performed By: #### 5 7021-8 #### ROSSANA HAGENMOTZER L (25574) [facility] ([place] [address] [place] [address] 48794 Lymphocytes/100 WBC (Bld) 32.8 % Normal 13.0-44.0 [facility] Comment on above: Performed By: #### 5 7021-8 #### ROSSANA HAGENMOTZER L ([id number]) [facility] ([place] [address] [place] [address] 26291 MCH (RBC) [Entitic mass] 30.8 pg Normal 26.0-34.0 [facility] Comment on above: Performed By: #### 5 7021-8 #### ROSSANA Cope ([id number]) [facility] ([place]) [address] [place] [address] MCHC (RBC) [Mass/Vol] 31.1 g/dL Low 32.0-36.0 [facility] Comment on above: Performed By: #### 5 7021-8 #### ROSSANA Cope ([id number]) [facility] ([place] [address] [place] [address] MCV (RBC) [Entitic vol] 99 fL Normal 80-100 [facility] Comment on above: Performed By: #### 5 7021-8 #### ROSSANA Cope ([id number]) [facility] ([place]) [address] [place] [address] 49935 Monocytes (Bld) [#/Vol] 0.36 x10*3/uL Normal 0.10-1.00 [facility] Comment on above: Performed By: #### 5 7021-8 #### ROSSANA Cope ([id number]) [facility] ([place]) [address] [place] [address] Monocytes/100 WBC (Bld) 5.5 % Normal 2.0-10.0 [facility] Comment on above: Performed By: #### 5 7021-8 #### ROSSANA Cope ([id number]) [facility] ([place]) [address] [place] [address] 99929 Neutrophils (Bld) [#/Vol] 3.80 x10*3/uL Normal 1.20-7.70 [facility] Comment on above: Result Comment: Perc ent differential counts (%) should be interpreted in the context of the absolute cell counts (cells/uL). Performed By: #### 5 7021-8 #### ROSSANA Cope ([id number]) [facility] ([place]) [address] [place] [address] 89771 Neutrophils/100 WBC (Bld) 58.3 % Normal 40.0-80.0 [facility] Comment on above: Performed By: #### 5 7021-8 #### ROSSANA Cope ([id number]) [facility] ([place]) [address] [place] [address] 92338 Nucleated RBC/100 WBC (Bld) [Ratio] 0.0 /100 WBCs Normal 0.0-0.0 [facility] Comment on above: Performed By: #### 5 7021-8 #### ROSSANA Cope ([id number]) [facility] ([place]) [address] [place] [address] 39701 Platelets (Bld) [#/Vol] 216 x10*3/uL Normal 150-450 [facility] Comment on above: Performed By: #### 5 7021-8 #### ROSSANA Cope ([id number]) [facility] ([place]) [address] [place] [address] 77116 RBC (Bld) [#/Vol] 4.06 x10*6/uL Normal 4.00-5.20 [facility] Comment on above: Performed By: #### 5 7021-8 #### ROSSANA Cope ([id number]) [facility] [address] [place] [address] 20350 WBC (Bld) [#/Vol] 6.5 x10*3/uL Normal 4.4-11.3 [facility] Comment on above: Performed By: #### 5 7021-8 #### ROSSANA Cope ([id number]) [facility] ([place]) [address] [place] [address] 60827 Comprehensive metabolic 2000 panelon 07-18-2023 Albumin BCP dye [Mass/Vol] 4.1 g/dL Normal 3.4-5.0 [facility] Comment on above: Performed By: #### 2 4323-8 #### ROSSANA Cope ([id number]) [facility] ([place] [address] [place] [address] ALP [Catalytic activity/Vol] 52 U/L Normal 33-136 [facility] Comment on above: Performed By: #### 2 4323-8 #### ROSSANA Cope (20985) [facility] ([place] [address] [place] [address] ALT With P-5'-P [Catalytic activity/Vol] 17 U/L Normal 7-45 [facility] Comment on above: Result Comment: Moira ents treated with Sulfasalazine may generate falsely decreased results for ALT. Performed By: #### 2 4323-8 #### ROSSANA Cope (12752) [facility] ([place]) [address] [place] [address] Anion gap [Moles/Vol] 14 mmol/L Normal 10-20 [facility] Comment on above: Performed By: #### 2 4323-8 #### ROSSANA Cope (17167) [facility] ([place] [address] [place] [address] AST With P-5'-P [Catalytic activity/Vol] 18 U/L Normal 9-39 [facility] Comment on above: Performed By: #### 2 4323-8 #### ROSSANA Cope (22498) [facility] ([place] [address] [place] [address] Bilirubin [Mass/Vol] 0.4 mg/dL Normal 0.0-1.2 [facility] Comment on above: Performed By: #### 2 4323-8 #### ROSSANA Cope (46288) [facility] ([place]) [address] [place] [address] 40252 Calcium [Mass/Vol] 9.0 mg/dL Normal 8.6-10.6 [facility] Comment on above: Performed By: #### 2 4323-8 #### ROSSANA Cope (60072) [facility] ([place]) [address] [place] [address] 61195 Chloride [Moles/Vol] 104 mmol/L Normal 98-107 [facility] Comment on above: Performed By: #### 2 4323-8 #### ROSSANA Cope (05387) [facility] ([place]) [address] [place] [address] CO2 [Moles/Vol] 27 mmol/L Normal 21-32 [facility] Comment on above: Performed By: #### 2 4323-8 #### ROSSANA Cope (05932) [facility] [address] [place] [address] Creatinine [Mass/Vol] 0.80 mg/dL Normal 0.50-1.05 [facility] Comment on above: Performed By: #### 2 4323-8 #### ROSSANA Cope (89488) [facility] ([place]) [address] [place] [address] 00426 Glomerular filtration rate/1.73 sq M.predicted 83 mL/min/1.73m*2 Normal >60 [facility] Comment on above: Result Comment: Calc ulations of estimated GFR are performed using the 2020 CKD-EPI Study Refit equation without the race variable for the IDMS-Traceable creatinine methods. https://jasn.asnjournals.org/content/early//ASN.2020 805638 Performed By: #### 2 4323-8 #### ROSSANA Cope (14705) [facility] ([place] [address] [place] [address] Glucose [Mass/Vol] 111 mg/dL High 74-99 [facility] Comment on above: Performed By: #### 2 4323-8 #### ROSSANA Cope (59724) [facility] [address] [place] [address] Potassium [Moles/Vol] 3.8 mmol/L Normal 3.5-5.3 [facility] Comment on above: Performed By: #### 2 4323-8 #### ROSSANA Cope ([id number]) [facility] ([place]) [address] [place] [address] 22933 Protein [Mass/Vol] 6.6 g/dL Normal 6.4-8.2 [facility] Comment on above: Performed By: #### 2 4323-8 #### ROSSANA Cope (79136) [facility]) [address] [place] [address] 44242 Sodium [Moles/Vol] 141 mmol/L Normal 136-145 [facility] Comment on above: Performed By: #### 2 4323-8 #### ROSSANA Cope ([id number]) [facility]) [address] [place] [address] 39194 Urea nitrogen [Mass/Vol] 19 mg/dL Normal 6-23 [facility] Comment on above: Performed By: #### 2 4323-8 #### ROSSANA Cope ([id number]) [facility] ([place]) [address] [place] [address] 50579 Hepatitis B virus core Abon 07-18-2023 HBV core Ab Ql (S) Non-Reactive Normal Nonreactive [facility] Comment on above: Order Comment: Resul ts from patients taking biotin supplements or receiving high-dose biotin therapy should be interpreted with caution due to possible interference with this test. Providers may contact their local laboratory for further information. Performed By: #### 1 6933-4 #### ROSSANA Cope ([id number]) [facility] ([place]) [address] [place] [address] 33636 Hepatitis B virus surface Ab on 07-18-2023 HBV surface Ab Qn (S) <3.1 Normal <10.0 [facility] Comment on above: Result Comment: Inte rpretive Criteria: <10 mIU/mL Nonreactive >=10 mIU/mL Reactive Biotin interference may cause falsely decreased results. Patients taking a Biotin dose of up to 5 mg/day should refrain from taking Biotin for 24 hours before sample collection. Providers may contact their local laboratory for further information. Performed By: #### 1 6935-9 #### ROSSANA Cope ([id number]) [facility] ([place]) [address] [place] [address] Hepatitis B virus surface Ag on 07-18-2023 HBV surface Ag IA Ql Non-Reactive Normal Nonreactive [facility] Comment on above: Result Comment: Biot in interference may cause falsely decreased results. Patients taking a Biotin dose of up to 5 mg/day should refrain from taking Biotin for 24 hours before sample collection. Providers may contact their local laboratory for further information. Performed By: #### 5 196-1 #### ROSSANA Cope ([id number]) [facility]) [address] [place] [address] Hepatitis C virus Abon 07-17 HCV Ab Ql (S) Non-Reactive Normal Nonreactive [facility] Comment on above: Result Comment: Resu lts from patients taking biotin supplements or receiving high-dose biotin therapy should be interpreted with caution due to possible interference with this test. Providers may contact their local laboratory for further information. Performed By: #### 1 6128-1 #### ROSSANA Cope ([id number]) [facility] ([place]) [address] [place], [place] [address] M. tuberculosis stim IFN-g a nd spot count panel (Bld)on 07-18-2023 Gamma interferon negative control spot count (Bld) [#] Passed [facility] Comment on above: Performed By: #### 7 4281-7 #### [facility] ([id number]) [address] [place] M. tuberculosis stim IFN-g CFP10 Ag spot count (Bld) [#] 0 [facility] Comment on above: Performed By: #### 7 4281-7 #### [facility] ([id number]) [address] [place] M. tuberculosis stim IFN-g ESAT-6 Ag spot count (Bld) [#] 0 [facility] Comment on above: Performed By: #### 7 4281-7 #### [facility] ([id number]) [address] M. tuberculosis stim IFN-g Ql (Bld) [Interp] Negative Normal Negative [facility] Comment on above: Result Comment: A negative test result does not exclude the possibility of exposure to or infection with Mycobacterium tuberculosis (M. tuberculosis). Patients with recent exposure to TB infected individuals exhibiting a negative T-SPOT.TB result should be considered for retesting within 6 weeks or if other relevant clinical symptoms indicate. Results from T-SPOT.TB testing must be used in conjunction with each individual's epidemiological history, current medical status, and results of other diagnostic evaluations. The T-SPOT.TB test is qualitative and results are reported as positive, borderline, or negative, given that the test controls perform as expected. In line with the Centers for Disease Control and Prevention's 2010 recommendation to report quantitative measurements alongside the qualitative result, the laboratory provides spot counts for informational purposes only. The T-SPOT.TB test should not be interpreted as a quantitative test. Performed By: #### 7 4281-7 #### [facility] ([id number]) [address] [place] Mitogen stimulated gamma interferon positive control spot count (Bld) [#] Passed Normal [facility] Comment on above: Result Comment: For additional information, please refer to http://education.Zadspace.Displair/faq/JBR089 (This link is being provided for informational/ educational purposes only.) Performed By: #### 7 4281-7 #### [facility] ([id number]) [address] [place] CNOVon 07-13-2023 CNOV Office Visit ([facility] ) DIMA NICE ([id number]) 1960 F Date Time Provider Department 07/13/23 9:20 AM MARTHA LORENZO [facility] During your visit today, we recorded the following information about you: Pulse Blood pressure Weight 77/minute 126/78 125.7 kg Martha Lorenzo MD 07/13/2023 10:14 AM Signed [facility] OUTPATIENT CLINIC VISIT SERVICE DATE: 07/13/2023 PCP: Casey Chang MD REFERRING PROVIDER: Gia Fernandes PA-C Consult requested for an opinion regarding the evaluation and treatment of a spinal pathology. My final impression and recommendations will be communicated back to the requesting physician by way of the shared medical record or letter via US mail. 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 To a much lesser extent, she reports left sided pain in the same distribution to a much lower extent. She reports right foot drop for two months. She reports low back pain much more mild (VAS 6/10). Lumbar injections three months ago provided only transient relief. 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 within the past 6 months EMG Bone Mineral Density ACTIVE PROBLEM LIST High Cholesterol Hypertension Vitamin D Deficiency PAST MEDICAL HISTORY Diagnosis Date Allergies Anxiety Arthritis Depression Gout Hiatal hernia High cholesterol Hydradenitis Hypertension Lyme disease triggered severe arthritis Vitamin D deficiency PAST SURGICAL HISTORY Procedure Laterality Date APPENDECTOMY HX BIOPSY BREAST benign COLONOSCOPY SCREENING 30 years ago per patient HYSTERECTOMY FAMILY HISTORY Problem Relation Age of Onset Immune Deficiency Mother Celiac Disease Father Heart Father Diabetes Paternal Grandmother Celiac Disease Other many family members Colon Cancer No Family History Social History Tobacco Use Smoking status: Every Day Packs/day: 1 Types: Cigarettes Start date: 12/25/1973 Smokeless tobacco: Never Vaping Use Vaping Use: Never used Substance Use Topics Alcohol use: Yes Alcohol/week: 3.0 standard drinks of alcohol Types: 3 Glasses of Wine (5oz) per week Comment: couple times/week Drug use: Never Comment: has medical marijuana card ALLERGIES Allergen Reactions Codeine Other: See Comments Mind changes MEDICATIONS: LORazepam (ATIVAN) 0.5 mg rosuvastatin (CRESTOR) 40 mg tablet Take 40 mg by mouth once daily. allopurinol (ZYLOPRIM) 300 mg tablet TAKE 1/2 (ONE-HALF) TABLET BY MOUTH IN THE MORNING budesonide-formoterol (SYMBICORT) 80-4.5 mcg/actuation inhaler Inhale 2 Puffs as instructed twice daily. HUMIRA,CF, PEN 40 mg/0.4 mL pen kit omeprazole (PRILOSEC) 20 mg capsule Take 1 capsule by mouth once daily. pravastatin (PRAVACHOL) 20 mg tablet Take 1 tablet by mouth once daily. meloxicam (MOBIC) 15 mg tablet Take 0.5 tablets by mouth twice daily. cholecalciferol, Vitamin D3, (VITAMIN D3) 1,250 mcg (50,000 unit) cap capsule Take 1 capsule by mouth one time a week. cyclobenzaprine (FLEXERIL) 10 mg tablet Take 1 tablet by mouth three times daily as needed for muscle spasm. citalopram hydrobromide (CELEXA ORAL) Take 30 mg by mouth once daily. lisinopril (ZESTRIL, PRINIVIL) 20 mg tablet Take 20 mg by mouth once daily. albuterol HFA (PROAIR HFA) 90 mcg/actuation inhaler Inhale 2 Puffs as instructed every 6 hours as needed. Patient Entered Questionnaires PROMIS Score Percentiles Percentiles provide an indication of how the patient's score ranks in relation to the general population. Higher percentile rankings indicate better function/quality of life. 50th percentile is the average of the general population and indicates half of respondents had a worse score. Depression Screening: PHQ-9 Self-Harm (Item 9) response options: 0 Not at all 1 Several days 2 More than half the days 3 Nearly every day PHQ-9 Levels: 0-4 No to mild depression 5-9 Mild depression 10-14 Moderate depression 15-19 Moderately severe depression 20-27 Severe depression OBJECTIVE: PHYSICAL EXAM BP 126/78 (BP Site: Left Arm, BP Position: Sitting, BP Cuff Size: Large Adult) Pulse 77 Wt 125.7 kg (277 lb 1.6 oz) BMI 49.09 kg/m? Constitutional Appears stated age, pleasant Psychiatric Alert and oriented to person, place, and time Normal speech and content. Appropriate mood and affect Pulmonary Breathing comfortably on room air Neurologic Cranial nerves are intact as per the following exam: II-vision grossly normal, PERRLA, III/IV/- EOMI, VII-hearing grossly normal, V-clench jaw, VII- raise eyebrows bilaterally; smile/frown intact and symmetric, able to b (more content not included)... Normal [facility] XR LUMBAR 4V AP/LAT/ FLEX/EX Ton 07-13-2023 XR LUMBAR 4V AP/LAT/ FLEX/EXT * * *Final Report* * * DATE OF EXAM: Jul 13 2023 8:27AM HCX 5231 - XR LUMBAR 4V AP/LAT/ FLEX/EXT / PROCEDURE REASON: Spondylolisthesis of lumbar region * * * * Physician Interpretation * * * * RESULT: EXAMINATION: XR LUMBAR 4V AP/LAT/ FLEX/EXT HISTORY: PT STS LOWER BACK PAINS WITH EXTREME LEG PAINS, MAY NEED LOWER BACK SURGERY. NO PRIOR SURG AND NO INJURY Spondylolisthesis of lumbar region . TECHNIQUE: XR LUMBAR 4V AP/LAT/ FLEX/EXT Laterality: NOT APPLICABLE Number of different views (projections): 4 M: XB_1 COMPARISON: RESULT: Counting Reference: Lumbosacral junction.. For the purposes of this report, the most caudal normal disc space in the lumbar region will be labeled as L5-S1. The iliac crest will serve as a secondary landmark to identify the L4-5 level. Exceptions: none Grade 1 anterolisthesis of L4 on L5. Straightening of the lumbar lordosis otherwise. No alignment change on flexion or extension images. Normal vertebral body heights. Mild degenerative disc changes throughout the lumbar spine and mild degenerative facet changes. Maintained sacroiliac joints and pubic symphysis. Minimal osteoarthritis of the hips. No acute fracture or dislocation. There are no bony erosions. IMPRESSION: Degenerative changes as described. Transcribed Using Voice Recognition Transcribe Date/Time: Jul 22 2023 5:19P Dictated by: RAJINDER GOFF MD This examination was interpreted and the report reviewed and electronically signed by: RAJINDER GOFF MD on Jul 22 2023 5:20PM EST [id number] [facility] MRI LUMBAR SPINE WO IVCONon 06-16-2023 MRI LUMBAR SPINE WO IVCON * * *Final Report* * * DATE OF EXAM: Jun 16 2023 1:52PM LDM 0303 - MRI LUMBAR SPINE WO IVCON / PROCEDURE REASON: M51.37 Other intervertebral disc degeneration, lumbosacral region, M54.16 Radicu * * * * Physician Interpretation * * * * EXAMINATION: MRI LUMBAR SPINE WO IVCON CLINICAL HISTORY: M51.37 Other intervertebral disc degeneration, lumbosacral region, M54.16 Radicu TECHNIQUE: Routine lumbosacral spine MR protocol without gadolinium. MQ: [id number] COMPARISON: None. RESULT: Counting reference: Lumbosacral junction. For the purposes of this report, L4-5 is at the level iliac crests. Anatomic Lumbar Variant: Partial sacralization L5 vertebrae. Localizer images: Unremarkable. Alignment: Subcentimeter grade 1 anterolisthesis L4-5 level and mild degree of dextrocurvature distal thoracic-upper lumbar spine Bone marrow signal/fracture: No evidence of pathologic marrow infiltration. No evidence of acute or prior fracture. Degenerative disc/endplate degenerative changes most prominent L2-3 level Conus: The conus is within normal limits of signal intensity and morphology. Spinal cord terminates at the T12-L1 level. Cauda equina nerve roots appear unremarkable Paraspinal soft tissues: Paraspinal soft tissues are within normal limits. Lower thoracic spine: Visualized lower thoracic canal and foramina are patent. L1-L2: Canal and foramina are patent. No disc abnormalities L2-L3: Mild degree of degenerative central canal and foraminal narrowing secondary posterior endplate hypertrophy eccentric towards left side and posterior hypertrophic changes L3-L4: Mild degree of degenerative central canal and foraminal narrowing secondary posterior endplate hypertrophy and posterior hypertrophic changes L4-L5: Subcentimeter grade 1 anterolisthesis, posterior endplate upper/disc complex and hypertrophy the posterior elements contributing to moderate/severe degree of central canal and moderate degree bilateral foraminal stenosis greater right side. L5-S1: Partial sacralization. Bilateral facet joint arthropathy Sacrum and iliac wings: The visualized sacrum and iliac wings are within normal limits. IMPRESSION: L4-L5: Subcentimeter grade 1 anterolisthesis, posterior endplate upper/disc complex and hypertrophy the posterior elements contributing to moderate/severe degree of central canal and moderate degree bilateral foraminal stenosis greater right side L2-L3: Mild degree of degenerative central canal and foraminal narrowing secondary posterior endplate hypertrophy eccentric towards left side and posterior hypertrophic changes Anatomic Lumbar Variant: Partial sacralization L5 vertebrae. Chief Nursing Executive: SILAS Transcribe Date/Time: Jun 17 2023 3:25P Dictated by : JASE BRUCE MD This examination was interpreted and the report reviewed and electronically signed by: JASE BRUCE MD on Jun 17 2023 3:32PM EST [id number] Normal [facility] Lumbar Spine 2 or 3 Viewson 05-25-2023 Lumbar Spine 2 or 3 Views [facility] Imaging Services [address] [place] [address] Lumbar Spine 2 or 3 Views MR#: [id number] Acct: [id number] Name: DIMA NICE Rep #: [id number] : 1960 F 62 From: Marcos Meehan DO PCP: Dr. Casey Chang MD Status: REG CLI Study: Lumbar Spine 2 or 3 Views Date of Exam: Exam# [id number] Ordering Dr: Pa Schroeder MD [id number] STUDY: X-RAY - LUMBAR SPINE REASON FOR EXAM: Female, 62 years old. SCIATICA, UNSPECIFIED SIDE TECHNIQUE: view(s) of the lumbar spine were obtained. COMPARISON: None FINDINGS: Normal lumbar lordosis. There is a mild dextroscoliosis. There is a minimal spondylolisthesis at L4-5. Normal vertebral bodies with mild spurring at the endplates. Normal disc space heights. The soft tissue structures are unremarkable. RAD/Lumbar Spine 2 or 3 Views IMPRESSION: Mild scoliosis and degenerative changes of the lumbar spine. Electronically Signed: Marcos Meehan DO at 22:26 EDT , CC: Dr. Pa Schroeder MD; Dr. Casey Chang MD Chief Nursing Executive: Signed Normal [facility] M100.678on 05-22-2023 M100.678 SARS-CoV-2 (COVID 19 ) Negative INFLUENZA A Negative INFLUENZA B Negative RSV PCR Negative Normal [facility] Comment on above: Performed By: #### M 100.678 #### [facility] Laboratory [address] [place], [address] Chest PA and Lateralon 05-20 Chest PA and Lateral [facility] Imaging Services [address] [place] [address] Chest PA and Lateral MR#: [id number] Acct: [id number] Name: DIMA NIEC Rep #: [id number] : 1960 F 62 From: Tato Lowery MD PCP: Dr. Casey Chang MD Status: [facility] ER Study: Chest PA and Lateral Date of Exam: 05/20/23 Exam# [id number] Ordering Dr: Peter Hamilton MD [id number] STUDY: X-RAY CHEST REASON FOR EXAM: Female, 62 years old. Fever and cough TECHNIQUE: PA and lateral views of the chest. COMPARISON: 12/21/2021 FINDINGS: The lungs are clear and expanded. There is no demonstrated pleural abnormality. Normal size heart. Normal mediastinum and junito. Normal visualized pulmonary arteries. Normal visualized aortic arch and descending thoracic aorta. Normal visualized thoracic spine. Normal visualized ribs, clavicles, and shoulders. There is no demonstrated abnormality of the visualized soft tissue structures of the upper abdomen. RAD/Chest PA and Lateral IMPRESSION: No acute pulmonary process Electronically Signed: Jean Lowery MD at 23:01 EDT , CC: Dr. Casey Chang MD; Dr. Peter Hamilton MD Chief Nursing Executive: Signed Normal [facility] Emergency Department Summary on 05-21-2023 Emergency Department Summary [facility] Medical Records Department [address] [place] [address] Emergency Department Summary 05/20/23 MR#: [id number] Acct: [id number] Name: DIMA NICE Rep #: [id number] : 1960 62 From: Peter Hamilton MD PCP: Dr. Casey Chang MD Status:DEP ER Location: ED HPI History of Present Illness Chief Complaint: General Illness Informant: patient Onset/Context/Timing Onset: Weeks Context: Gradual Onset Timing: Continuous Current Severity: Mild Maximum Severity: Mild Narrative Narrative: 52-year-old female history of asthma uses DuoNeb and inhaler at home. Says she is progressively gotten worse of the 2 weeks initially started out as clear sputum and white now it is dark. No hemoptysis. No chest pain. She has been wheezing. Prior similar symptoms: Yes Recent Illness/Hospitalizatio n: No PFSH PFSH Medical History Abnormal mammogram Abnormal ultrasound of breast Alcohol use Anxiety Arthritis Asthma Back pain [place] disease Gastric reflux GERD (gastroesophageal reflux disease) Gout H/O hidradenitis suppurativa High cholesterol History of diverticulosis History of hiatal hernia History of IBS History of stress test Hyperlipemia Hypertension Injury of head and neck Leg cramps Open wound Smoker Wears glasses Home Medications citalopram 40 mg tablet 20 mg PO DAILY 04/04/16 [History Last Taken Unknown] lisinopril 20 mg tablet 60 mg PO DAILY 01/28/19 [History Last Taken Unknown] omeprazole 20 mg capsule,delayed release 20 mg PO DAILY 01/28/19 [History Last Taken Unknown] pravastatin 20 mg tablet 40 mg PO DAILY 01/28/19 [History Last Taken Unknown] allopurinol 100 mg tablet 150 mg PO DAILY 07/09/20 [History Last Taken Unknown] adalimumab 40 mg/0.4 mL subcutaneous pen kit (Humira(CF) Pen) 40 mg subcut WE 07/23/20 [History Last Taken Unknown] albuterol sulfate 90 mcg/actuation aerosol inhaler 1 puff inhalation Q6H PRN ASTHMA 07/23/20 [History Last Taken Unknown] cholecalciferol (vitamin D3) 1,250 mcg (50,000 unit) capsule 50,000 unit PO MO 07/23/20 [History Last Taken Unknown] meloxicam 15 mg tablet 5 mg PO BID 07/23/20 [History Last Taken Unknown] fluticasone propionate 50 mcg/actuation nasal spray,suspension 1 spray intranasal DAILY 10/30/20 [History Last Taken Unknown] zinc 100 mg tablet 100 mg PO DAILY 10/30/20 [History Last Taken Unknown] azithromycin 250 mg tablet (Zithromax Z-Alex) 250 mg PO DAILY 4 days #4 tabs 05/20/23 [Rx Last Taken Unknown] prednisone 20 mg tablet 40 mg (2 x 20 mg) PO DAILY 10 days #20 tabs 05/20/23 [Rx Last Taken Unknown] Allergy/AdvReac Type Severity Reaction Status Date / Time codeine AdvReac Other Verified 09/01/22 08:03 Family History Mother Cervical cancer Autoimmune disease Asthma Arthritis Father Heart disease Surgical History Hx of appendectomy Hx of hysterectomy Social History Smoking Status: Current every day smoker tobacco type: cigarettes alcohol intake: current alcohol intake frequency: a few times a week substance use type: does not use caffeine: Yes what type of physical activity do you participate in: none frequency: does not exercise ROS ROS ED ROS Narrative Cough. Wheezing. Subjective fever. Review of Systems ROS Unobtainable: Denies due to encephalopathy Constitutional Constitutional ED: Reports fever(s); Denies chills Eyes Eyes: Denies blurry vision ENT ENT ED: Denies ear pain Cardiovascular Cardiovascular: Denies chest pain or palpitations Respiratory/Chest Respiratory/Chest: Reports cough, sputum and other Details: Wheezing Gastrointestinal Gastrointestinal: Denies abdominal pain, diarrhea, nausea or vomiting Genitourinary Genitourinary ED: Denies dysuria or hematuria Musculoskeletal Musculoskeletal: Denies arthralgias Integumentary Denies abscess Neurologic Neurologic: Denies headache(s) Psychiatric Psychiatric: Denies anxiety Endocrine Endocrinology: Denies cold intolerance Hematologic/Lymphatic Hematologic/Lymphatic: Reports none Allergic/Immunologic Allergic/Immunologic ED: Denies mouth swelling, tongue swelling or urticaria EXAM Physical Exam Narrative Exam Narrative: 60-year-old female no acute distress. Vital signs stable afebrile. Pulse ox 93% on room air no hypoxia. HEENT exam unremarkable. Mytrex membranes. Neck nontender no lymphadenopathy. Lungs scattered expiratory wheezes. No rales or rhonchi. Equal symmetrical. No distress. Heart regular rhythm rate about 100 no murmur. Abdomen soft nontender. Moving all 4 extremities. Calves are nontender without edema or cords. Neurologica (more content not included)... Normal [facility] Laboratory - Microbiology an d Antimicrobial susceptibilityOrdered By: Violet Ricardo on 05-20-2023 SARS-CoV-2 (COVID-19) RNA SOCORRO+probe Ql (Unsp spec) [facility] US Abdomenon 09-09-2022 1. Mildly increased hepatic echogenicity, which may reflect steatosis in the appropriate clinical context. Correlate with liver function tests. 2. Homogenous hyperechoic right liver structure measuring up to 2.2 cm, thought to represent hemangioma. Consider 6 month follow-up imaging to document stability. 3. 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 Again follow-up imaging may be obtained to document stability. Report Dictated on Electronically Signed By: Jr Doran MD Electronically Signed Date/Time: 09/09/2022 11:07 AM [facility] 1960 [id number] Exam Date/Time: 09/09/2022 10:55 Procedure: US ABDOMEN COMPLETE Ordering Provider: GUADALUPE CRYSTAL Reason For Exam: EPIGASTRIC PAIN ULTRASOUND ABDOMEN COMPLETE CLINICAL INDICATION: Diarrhea TECHNIQUE: Complete ultrasound of abdomen COMPARISON: None FINDINGS: Limited study due to body habitus and overlying bowel gas. Within this context: Liver: Generalized increased echogenicity corresponding to fatty infiltration. Normal size and contour. Rounded homogenously hyperechoic structure noted in the right liver lobe measuring 2.0 x 2.2 x 1.6 cm, without significant Doppler vascularity, likely reflecting hemangioma. Gallbladder: The gallbladder appears within normal limits. Sonographic Dutta sign is reported as negative. Bile ducts: No evidence of biliary ductal dilatation. Common bile duct: 4.0 mm Pancreas: The pancreas is obscured due to overlying bowel gas. Right kidney: Normal parenchymal echogenicity without mass or hydronephrosis. Right Kidney Dimensions: 10.6 x 5.2 x 4.3 cm Left kidney: Normal parenchymal echogenicity without mass or hydronephrosis. Small rounded hyperechoic structure noted in the left renal midpole measuring 0.8 x 0.9 x 0.7 cm. Left Kidney Dimensions: 10.1 x 5.3 x 4.4 cm Spleen: Normal echogenicity and size. No mass identified. Spleen Dimensions: 10.5 x 4.6 x 6.8 cm Aorta and Inferior vena cava: Visualized portions are normal. The bifurcation is not visualized. Ascites: None [facility] Jr Doran MD - 09/09/2022 Patient Name: DIMA NICE : 1960 Exam Date/Time: 09/09/2022 10:55 Procedure: US ABDOMEN COMPLETE Ordering Provider: GUADALUPE CRYSTAL Reason For Exam: EPIGASTRIC PAIN ULTRASOUND ABDOMEN COMPLETE CLINICAL INDICATION: Diarrhea TECHNIQUE: Complete ultrasound of abdomen COMPARISON: None FINDINGS: Limited study due to body habitus and overlying bowel gas. Within this context: Liver: Generalized increased echogenicity corresponding to fatty infiltration. Normal size and contour. Rounded homogenously hyperechoic structure noted in the right liver lobe measuring 2.0 x 2.2 x 1.6 cm, without significant Doppler vascularity, likely reflecting hemangioma. Gallbladder: The gallbladder appears within normal limits. Sonographic Dutta sign is reported as negative. Bile ducts: No evidence of biliary ductal dilatation. Common bile duct: 4.0 mm Pancreas: The pancreas is obscured due to overlying bowel gas. Right kidney: Normal parenchymal echogenicity without mass or hydronephrosis. Right Kidney Dimensions: 10.6 x 5.2 x 4.3 cm Left kidney: Normal parenchymal echogenicity without mass or hydronephrosis. Small rounded hyperechoic structure noted in the left renal midpole measuring 0.8 x 0.9 x 0.7 cm. Left Kidney Dimensions: 10.1 x 5.3 x 4.4 cm Spleen: Normal echogenicity and size. No mass identified. Spleen Dimensions: 10.5 x 4.6 x 6.8 cm Aorta and Inferior vena cava: Visualized portions are normal. The bifurcation is not visualized. Ascites: None IMPRESSION: 1. Mildly increased hepatic echogenicity, which may reflect steatosis in the appropriate clinical context. Correlate with liver function tests. 2. Homogenous hyperechoic right liver structure measuring up to 2.2 cm, thought to represent hemangioma. Consider 6 month follow-up imaging to document stability. 3. 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 Again follow-up imaging may be obtained to document stability. Report Dictated on Electronically Signed By: Jr Doran MD Electronically Signed Date/Time: 09/09/2022 11:07 AM EDT [facility] Radiology Study observation (narrative) [facility] alth US AbdomenOrdered By: Jr Doran on 09-09-2022 [facility] [employer] Work Phone: Abdomen/Pelvis WITH Contrast on 09-01-2022 Abdomen/Pelvis WITH Contrast [facility] Imaging Services [address] [place] [address] Abdomen/Pelvis WITH Contrast MR#: [id number] Acct: [id number] Name: DIMA NICE Rep #: [id number] : 1960 F 62 From: Tato Montes PCP: Dr. Casey Chang MD Status: REG ER Study: Abdomen/Pelvis WITH Contrast Date of Exam: Exam# [id number] Ordering Dr: Luis Myers DO STUDY: CT ABDOMEN AND PELVIS WITH CONTRAST - URINARY TRACT REASON FOR EXAM: Female, 62 years old. Abdominal pain -- IV PO Contrast RADIATION DOSAGE (If Supplied By Facility): CTDIvol = ( 19.44 ) mGy, DLP = ( 1349.75 ) mGycm TECHNIQUE: Oral and amp; IV Gastrografin and amp; 100mL Isovue-300 was administered. Transaxial images were obtained from the dome of the diaphragm to the symphysis pubis in the arterial, nephrographic and excretory phases. Multiplanar coronal and sagittal images were reformatted. Individualized Dose Optimization Techniques Were Used For This CT. COMPARISON: FINDINGS: There is some elevation of the right diaphragm, etiology uncertain. The visualized lung bases are unremarkable. The visualized portions of the heart are within normal limits. The uppermost dome of the liver is not fully included in the [id number]. Mildly irregular 1.9 cm hypodensity in the medial margin of the dome of the liver (series 2 image 5, series 601 image 56) may be artifact, incomplete opacification of the hepatic vein, or other focal lesion, such as hemangioma or focal fatty infiltration 5 mm hyperdensity in the mid upper right lobe of liver (series 2 image 7, series 601 image 71) may also be a small hemangioma. The patent portal vein diameter is 15 mm. Normal gallbladder and extrahepatic biliary system. Normal spleen. Normal pancreas. Normal bilateral adrenal glands. Normal visualized stomach. Normal small intestine. There are numerous small diverticula of the sigmoid colon. The appendix is visualized and appears normal. Normal abdominal aorta. No retroperitoneal adenopathy. Normal right kidney. Normal left kidney. No hydronephrosis. Normal urinary bladder. The uterus is absent. The adnexa are not visualized. The patient is morbidly obese. There is a small, elongated, fat filled umbilical hernia. There are multilevel [id number] degenerative changes of the lumbar spine, including disc height narrowing at L4-5, L4-5 facet arthropathies, and a grade 1 L4-5 spondylolisthesis. There is mild mid lumbar dextroscoliosis. Degenerative change also seen at the pubic symphysis. CT/Abdomen/Pelvis WITH Contrast IMPRESSION: 1. The kidneys, urinary tract, and bladder are unremarkable. 2. 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 3. Sigmoid diverticulosis without acute diverticulitis. No sign of bowel obstruction. 4. Prior hysterectomy. 5. Degenerative changes of the spine, as described. Electronically Signed: Jean Lim MD at 10:47 EDT Reading Location ID and State: [id number] / Unknown , Service support , CC: Dr. Casey Chang MD; Dr. Luis Myers, DO Chief Nursing Executive: Signed Normal [facility] CBC W/Diff, Automatedon 08-14 Absolute Lymph 2.86 X10 3/uL Normal 0.83-4.51 [facility] Comment on above: Performed By: #### L 500.4050, L501.2450, L100.0100 #### [facility] Laboratory [address] [place], [address] Absolute Neut 3.5 X10 3/uL Normal 2.0-7.7 [facility] Comment on above: Performed By: #### L 500.4050, L501.2450, L100.0100 #### [facility] Laboratory [address] [place], [address] Basophils/100 WBC (Bld) 0.9 % Normal 0-1 [facility] Comment on above: Performed By: #### L 500.4050, L501.2450, L100.0100 #### [facility] Laboratory [address] [place], [address] Eosinophils/100 WBC (Bld) 11.9 % High 0-5 [facility] Comment on above: Performed By: #### L 500.4050, L501.2450, L100.0100 #### [facility] Laboratory [address] [place], [address] Erythrocyte distribution width (RBC) [Ratio] 14.7 % High 11.6-14.6 [facility] Comment on above: Performed By: #### L 500.4050, L501.2450, L100.0100 #### [facility] Laboratory [address] [place], [address] Hematocrit (Bld) [Volume fraction] 41.2 % Normal 37-47 [facility] Comment on above: Performed By: #### L 500.4050, L501.2450, L100.0100 #### [facility] Laboratory [address] [place], [address] Hemoglobin (Bld) [Mass/Vol] 13.3 g/dL Normal 12.0-15.0 [facility] Comment on above: Performed By: #### L 500.4050, L501.2450, L100.0100 #### [facility] Laboratory [address] [place], [address] IG% 0.400 Normal 0.0-0.9 [facility] Comment on above: Result Comment: IG% - Immature Granulocytes (promyelocytes, myelocytes and metamyelocytes) > 1% indicates that a LEFT SHIFT is Present. Performed By: #### L 500.4050, L501.2450, L100.0100 #### [facility] Laboratory [address] [place], [address] Lymphocytes/100 WBC (Bld) 34.8 % Normal 19-41 [facility] Comment on above: Performed By: #### L 500.4050, L501.2450, L100.0100 #### [facility] Laboratory [address] [place], [address] MCH (RBC) [Entitic mass] 31.2 pg Normal 27.0-32.0 [facility] Comment on above: Performed By: #### L 500.4050, L501.2450, L100.0100 #### [facility] Laboratory [address] [place], [address] MCHC (RBC) [Mass/Vol] 32.3 g/dL Normal 32-36 [facility] Comment on above: Performed By: #### L 500.4050, L501.2450, L100.0100 #### [facility] Laboratory [address] [place], [address] MCV (RBC) [Entitic vol] 96.7 fL Normal 81-99 [facility] Comment on above: Performed By: #### L 500.4050, L501.2450, L100.0100 #### [facility] Laboratory [address] [place], [address] Monocytes/100 WBC (Bld) 9.6 % Normal 0-10 [facility] Comment on above: Performed By: #### L 500.4050, L501.2450, L100.0100 #### [facility] Laboratory [address] [place], [address] Neutrophils/100 WBC (Bld) 42.4 % Low 47-70 [facility] Comment on above: Performed By: #### L 500.4050, L501.2450, L100.0100 #### [facility] Laboratory [address] [place], [address] Nucleated RBC (Bld) [#/Vol] 0 10*3/uL Normal 0-5 [facility] Comment on above: Performed By: #### L 500.4050, L501.2450, L100.0100 #### [facility] Laboratory [address] [place], [address] Platelet mean volume (Bld) [Entitic vol] 9.8 fL Normal 6.2-12.0 [facility] Comment on above: Performed By: #### L 500.4050, L501.2450, L100.0100 #### [facility] Laboratory [address] [place], [address] Platelets (Bld) [#/Vol] 209 10*3/uL Normal 150-450 [facility] Comment on above: Performed By: #### L 500.4050, L501.2450, L100.0100 #### [facility] Laboratory [address] [place], [address] RBC (Bld) [#/Vol] 4.26 10*6/uL Normal 4.2-5.4 [facility] Comment on above: Performed By: #### L 500.4050, L501.2450, L100.0100 #### [facility] Laboratory [address] [place], [address] RDW SD 51.9 fl High 35.1-43.9 [facility] Comment on above: Performed By: #### L 500.4050, L501.2450, L100.0100 #### [facility] Laboratory [address] [place], [address] WBC (Bld) [#/Vol] 8.2 10*3/uL Normal 4.4-11.[address] [facility] Comment on above: Performed By: #### L 500.4050, L501.2450, L100.0100 #### [facility] Laboratory [address] [place], [address] Comprehensive [facility] 09-01-2022 Albumin [Mass/Vol] 3.3 g/dL Normal 3.2-5.[address] [facility] Comment on above: Performed By: #### L 500.4050, L501.2450, L100.0100 #### [facility] Laboratory [address] [place], [address] Albumin/Globulin [Mass ratio] 0.8 {ratio} Low 0.9-2.4 [facility] Comment on above: Performed By: #### L 500.4050, L501.2450, L100.0100 #### [facility] Laboratory [address] [place], [address] ALK P 84 U/L Normal 45-117 [facility] Comment on above: Performed By: #### L 500.4050, L501.2450, L100.0100 #### [facility] Laboratory [address] [place], [address] ALT [Catalytic activity/Vol] 35 U/L Normal 13-56 [facility] Comment on above: Performed By: #### L 500.4050, L501.2450, L100.0100 #### [facility] Laboratory [address] [place], [address] AST [Catalytic activity/Vol] 31 U/L Normal 15-37 [facility] Comment on above: Performed By: #### L 500.4050, L501.2450, L100.0100 #### [facility] Laboratory [address] [place], [address] Bilirubin [Mass/Vol] 0.40 mg/dL Normal 0.20-1.00 [facility] Comment on above: Result Comment: For patients on eltrombopag therapy, use of Dimension [place] TBIL is not recommended. Performed By: #### L 500.4050, L501.2450, L100.0100 #### [facility] [address] [place], [address] BUN/CRE 17.4 RATIO Normal 10-20 [facility] Comment on above: Performed By: #### L 500.4050, L501.2450, L100.0100 #### [facility] [address] [place], [address] CA,Total 8.8 mg/dL Normal 8.5-10.1 [facility] Comment on above: Performed By: #### L 500.4050, L501.2450, L100.0100 #### [facility] [address] [place], [address] Chloride [Moles/Vol] 105 mmol/L Normal 98-107 [facility] Comment on above: Performed By: #### L 500.4050, L501.2450, L100.0100 #### [facility] [address] [place], [address] CO2 [Moles/Vol] 27.0 mmol/L Normal 21.0-32.0 [facility] Comment on above: Performed By: #### L 500.4050, L501.2450, L100.0100 #### [facility] [address] [place], [address] Creatinine [Mass/Vol] 0.98 mg/dL Normal 0.55-1.02 [facility] Comment on above: Result Comment: The validity of the calculated GFR GFRAA in patients over 70 years has not been determined. Clinical correlation is essential. Performed By: #### L 500.4050, L501.2450, L100.0100 #### [facility] [address] [place], [address] ECRCL 51.40 ml/min Normal [facility] Comment on above: Performed By: #### L 500.4050, L501.2450, L100.0100 #### [facility] [address] [place], [address] EST GFR - AA 74 mL/min Normal >60 [facility] Comment on above: Result Comment: Afri can [place] GFR Calc Performed By: #### L 500.4050, L501.2450, L100.0100 #### [facility] [address] [place], [address] GAP 8 Normal 5-15 [facility] Comment on above: Performed By: #### L 500.4050, L501.2450, L100.0100 #### [facility] [address] [place], [address] GFR/1.73 sq M.predicted among non-blacks MDRD (S/P/Bld) [Vol rate/Area] 61 mL/min/{1.73_m2} Normal >60 [facility] Comment on above: Result Comment: Non- GFR Calc Performed By: #### L 500.4050, L501.2450, L100.0100 #### [facility] [address] [place], [address] Globulin (S) [Mass/Vol] 4.4 g/dL High 2.2-4.2 [facility] Comment on above: Performed By: #### L 500.4050, L501.2450, L100.0100 #### [facility] [address] [place], [address] Glucose [Mass/Vol] 99 mg/dL Normal 74-[address] [facility] Comment on above: Performed By: #### L [id number], L501.2450, L100.0100 #### [facility] [address] [place], [address] Potassium [Moles/Vol] 4.0 mmol/L Normal 3.5-5.1 [facility] Comment on above: Performed By: #### L [id number], L501.2450, L100.0100 #### [facility] [address] [place], [address] Sodium [Moles/Vol] 140 mmol/L Normal 136-[address] [facility] Comment on above: Performed By: #### L [id number], L501.2450, L100.0100 #### [facility] [address] [place], [address] T PROT 7.7 g/dL Normal 6.4-8.2 [facility] Comment on above: Performed By: #### L [id number], L501.2450, L100.0100 #### [facility] [address] [place], [address] Urea nitrogen [Mass/Vol] 17 mg/dL Normal 7-18 [facility] Comment on above: Performed By: #### L [id number], L501.2450, L100.0100 #### [facility] [address] [place], [address] Emergency Department Summary on 09-01-2022 Emergency Department Summary [facility] Medical Records Department [address] [place] [address] Emergency Department Summary 09/01/22 MR#: [id number] Acct: [id number] Name: DIMA NICE Rep #: [id number] : 1960 62 From: Luis Myers DO PCP: Dr. Casey Chang MD Status:DEP ER Location: ED HPI HPI - GI History of Present Illness Chief Complaint: Abd Pain Informant: patient Abdominal Pain/Flank Pain Onset: Month(s) Context: Gradual Onset Timing: Continuous Quality: Burning Location: Diffuse Worsened by: Food Relieved by: Nothing Nausea/Vomiting/Emesis GI Symptom: Positive for Nausea and Vomiting Quality: Positive for Nonbilious; Negative for Blood streaks, Coffee ground or Hematemesis Diarrhea/Melena/Hemato chezia GI Symptom: Positive for Diarrhea; Negative for Melena or Hematochezia Associated Symptoms Associated Symptoms: Negative for Dysuria, Frequency or Hematuria Narrative Narrative: Patient presents with abdominal pain that has been constant since 06/06/2022. Patient states the pain has been gradually getting worse since that time. Patient states she was seen by her primary care physician and hospital admitting clerk for this. Patient states her pain has not been improving. Patient states her pain is worse after eating. Patient states it comes on approxi-1 hour after eating. Patient states her pain is burning sensation. Patient states that it is diffuse across her abdomen but worse in the upper abdomen. Patient states the pain radiates up into her chest. Patient admits to some nausea and vomiting. Patient denies any hematemesis or coffee-ground emesis. Patient admits to some diarrhea but denies any melena or hematochezia. Patient denies any dysuria, frequency, or hematuria. Patient states she has had large amount of gas. Patient states her last meal was 6 PM last night. Patient states she did have some coffee this morning. [facility] Medical History Abnormal mammogram Abnormal ultrasound of breast Alcohol use Anxiety Arthritis Asthma Back pain [place] disease Gastric reflux GERD (gastroesophageal reflux disease) Gout H/O hidradenitis suppurativa High cholesterol History of diverticulosis History of hiatal hernia History of IBS History of stress test Hyperlipemia Hypertension Injury of head and neck Leg cramps Open wound Smoker Wears glasses Home Medications citalopram 40 mg tablet 20 mg PO DAILY 04/04/16 [History Last Taken Unknown] lisinopril 20 mg tablet 60 mg PO DAILY 01/28/19 [History Last Taken Unknown] omeprazole 20 mg capsule,delayed release 20 mg PO DAILY 01/28/19 [History Last Taken Unknown] pravastatin 20 mg tablet 40 mg PO DAILY 01/28/19 [History Last Taken Unknown] allopurinol 100 mg tablet 150 mg PO DAILY 07/09/20 [History Last Taken Unknown] adalimumab 40 mg/0.4 mL subcutaneous pen kit (Humira(CF) Pen) 40 mg subcut WE 07/23/20 [History Last Taken Unknown] albuterol sulfate 90 mcg/actuation aerosol inhaler 1 puff inhalation Q6H PRN ASTHMA 07/23/20 [History Last Taken Unknown] cholecalciferol (vitamin D3) 1,250 mcg (50,000 unit) capsule 50,000 unit PO MO 07/23/20 [History Last Taken Unknown] meloxicam 15 mg tablet 5 mg PO BID 07/23/20 [History Last Taken Unknown] fluticasone propionate 50 mcg/actuation nasal spray,suspension 1 spray intranasal DAILY 10/30/20 [History Last Taken Unknown] zinc 100 mg tablet 100 mg PO DAILY 10/30/20 [History Last Taken Unknown] Allergy/AdvReac Type Severity Reaction Status Date / Time codeine AdvReac Other Verified 09/01/22 08:03 Family History Mother Cervical cancer Autoimmune disease Asthma Arthritis Father Heart disease Surgical History Hx of appendectomy Hx of hysterectomy Social History Smoking Status: Current every day smoker tobacco type: cigarettes alcohol intake: current alcohol intake frequency: a few times a week substance use type: does not use caffeine: Yes what type of physical activity do you participate in: none frequency: does not exercise ROS ROS ED Constitutional Constitutional ED: Denies chills or fever(s) Eyes Eyes: Denies blurry vision or change in vision ENT ENT ED: Denies rhinorrhea or sore throat Cardiovascular Cardiovascular: Reports chest pain; Denies palpitations Respiratory/Chest Respiratory/Chest: Denies cough or dyspnea Gastrointestinal Gastrointestinal: Reports abdominal pain, diarrhea, nausea and vomiting; Denies melena Genitourinary Genitourinary ED: Denies dysuria or hematuria Musculoskeletal Musculoskeletal: Reports myalgias; Denies back pain or neck pain Integumentary Reports abscess; Denies rash (more content not included)... Normal [facility] Lipaseon 09-01-2022 Lipase [Catalytic activity/Vol] 23 U/L Normal 13-75 [facility] Comment on above: Result Comment: Genet torres note: LIPASE revised reference range effective 22. New Lipase methodology. Expected to produce lower values than the previous assay method. NEW Reference Range: 13 - 75 U/L Performed By: #### L 500.4050, L501.2450, L100.0100 #### [facility] [address] [place], [address] Urinalysis, Completeon 09-01 EPI,SQUAMOUS 0-5 SEEN Normal 5-10 [facility] Comment on above: Order Comment: JERMAINE CTOR TO SPECIFY Performed By: #### L 400.0001 #### [facility] [address] [place], [address] BACTERIA 0 SEEN Normal None Seen [facility] Comment on above: Order Comment: JERMAINE CTOR TO SPECIFY Performed By: #### L 400.0001 #### [facility] [address] [place], [address] Mucus Ql (Urine sed) 0 SEEN Normal [facility] Comment on above: Order Comment: JERMAINE CTOR TO SPECIFY Performed By: #### L 400.0001 #### [facility] [address] [place], [address] RBC 0 SEEN Normal 0-5 [facility] Comment on above: Order Comment: JERMAINE CTOR TO SPECIFY Performed By: #### L 400.0001 #### [facility] [address] [place], [address] WBC 0 SEEN Normal 0-5 [facility] Comment on above: Order Comment: JERMAINE CTOR TO SPECIFY Performed By: #### L 400.0001 #### [facility] [address] [place], [address] C. difficile toxin genes SOCORRO +probe Ql (Stl)on 06-18-2022 C. difficile toxin PCR Not detected Not Detecte d [facility] Interpretation and review of laboratory results Normal [facility] C. difficile infecti on is unlikely to be present. Methodology: Real-time PCR [facility] Gastrointestinal pathogens p jackie SOCORRO+probe (Stl)Ordered By: Anu Sosa on 06-18-2022 Adenovirus F 40/41 Not detected Not Detected [facility] Astrovirus Not detected Not Detected [facility] Campylobacter Not detected Not Detected [facility] ealt Cryptosporidium Not detected Not Detected [facility] Cyclospora cayetanensis Not detected Not Detect ed [facility] Entamoeba histolytica Not detected Not Detected [facility] Enterotoxigenic E coli (ETEC) Not detected Not Detected [facility] Giardia lamblia Not detected Not Detected [facility] Interpretation and review of laboratory results Normal [facility] Norovirus GI/GII Not detected Not Detected [facility] Plesiomonas shigelloides Not detected Not Detected [facility] Rotavirus A Not detected [facility] Salmonella Not detected Not Detected [facility] Sapovirus Not detected Not Detected [facility] Shiga toxin-producing E coli (STEC) Not detected Not Detected [facility] Shigella/Enteroinvasive E coli (EIEC) Not detected Not Detected [facility] Vibrio cholerae Not detected Not Detected [facility] Vibrio species Not detected Not Detected [facility] Yersinia enterocolitica Not detected Not Detect ed [facility] Methodology: Multipl ex PCR [facility] Absolute lymphocyte counton 12-21-2021 Lymphocytes Auto (Unsp spec) [#/Vol] 1.96 10*3/uL 0.83-4.51 [facility] Work Phone: [phone] Basophil percentageon 2021 Basophils/100 WBC (Bld) 0.6 % 0-1 [facility] Work Phone: [phone] Chloride [Moles/Vol] 105 mmol/L 98-107 [facility] Work Phone: [phone] Eosinophils/100 WBC (Bld) 3.9 % 0-5 [facility] Work Phone: [phone] Glucose [Mass/Vol] 77 mg/dL 74-[address] [facility] Work Phone: [phone] Neutrophils (Bld) [#/Vol] 3.7 10*3/uL 2.0-7.7 [facility] Work Phone: [phone] Neutrophils/100 WBC (Bld) 56.2 % 47-70 [facility] Work Phone: [phone] Potassium [Moles/Vol] 4.1 mmol/L 3.5-5.1 [facility] Work Phone: [phone] Comment on above: Slight Hemolysis, Re sult may be falsely increased. Sodium [Moles/Vol] 139 mmol/L 136-[address] [facility] Work Phone: [phone] WBC (Bld) [#/Vol] 6.6 10*3/uL 4.4-11.[address] [facility] Work Phone: [phone] Blood erythrocytes count (nu mber/volume)on 12-21-2021 RBC (Bld) [#/Vol] 4.26 10*6/uL 4.2-5.4 [facility]: Blood hemoglobin measurement (mass/volume)on 12-21-2021 Hemoglobin (Bld) [Mass/Vol] 13.7 g/dL 12.0-15.0 [facility] Work Phone: Blood lymphocytes/100 leukoc yteson 12-21-2021 Lymphocytes/100 WBC (Bld) 29.6 % 19-41 [facility] Work Phone: Blood monocytes/100 leukocyt eson 12-21-2021 Monocytes/100 WBC (Bld) 9.4 % 0-10 [facility] Work Phone: Blood platelet mean volumeon 12-21-2021 Platelet mean volume (Bld) [Entitic vol] 9.8 fL 6.2-12.0 [facility] Work Phone: Determination of erythrocyte mean corpuscular volume (MCV)on 12-21-2021 MCV (RBC) [Entitic vol] 97.7 fL 81-99 [facility] Work Phone: Hematocrit Auto (Bld) [Volum e fraction]on 12-21-2021 Hematocrit (Bld) [Volume fraction] 41.6 % 37-47 [facility] Work Phone: INR in Blood by Coagulation assayon 12-21-2021 INR Coag (Bld) [Relative time] 0.9 {INR} [facility] Work Phone: Laboratory - Chemistry and C hemistry - challengeon 12-21-2021 CO2 [Moles/Vol] 27.0 mmol/L 21.0-32.0 [facility] Work Phone: Urea nitrogen/Creatinine [Mass ratio] 21.7 mg/mg 10-20 [facility] Work Phone: Laboratory - Coagulationon 1 02-20-2021 aPTT Coag (Bld) [Time] 23.0 s 24.1-36.2 Wo codi [facility] Work Phone: PT Coag (PPP) [Time] 12.1 s 11.7-14.9 [facility] Work Phone: Laboratory - Hematology and Cell countson 12-21-2021 Erythrocyte distribution width (RBC) [Entitic vol] 50.4 fL 35.1-43.9 [facility] Work Phone: Erythrocyte distribution width (RBC) [Ratio] 14.0 % 11.6-14.6 [facility] Work Phone: Immature granulocytes/100 WBC (Bld) 0.300 % 0.0-0.9 [facility] Work Phone: Comment on above: IG% - Immature Granu locytes (promyelocytes, myelocytes and metamyelocytes) > 1% indicates that a LEFT SHIFT is Present. MCH (RBC) [Entitic mass] 32.2 pg 27.0-32.0 [facility] Work Phone: Nucleated RBC/100 WBC (Bld) [Ratio] 0 % 0-5 [facility] Work Phone: MCHC Auto (RBC) [Mass/Vol]on 12-21-2021 MCHC (RBC) [Mass/Vol] 32.9 g/dL 32-36 [facility] Work Phone: No Panel Informationon 12-21 Estimated Creatinine Clearance Calc 55.45 ml/min [facility] Work Phone: Estimated GFR (MDRD) Amer 80 mL/min >60 [facility] Work Phone: Comment on above: GFR Calc Estimated GFR (MDRD) Non-Af Amer 66 mL/min >60 [facility] Work Phone: Comment on above: Non- GFR Calc Troponin I High Sensitivity 4 pg/mL 3.0-54.0 [facility] Work Phone: Comment on above: Please Note: New Jody t Units and Gender Specific Reference Ranges. For more information see Policy Stat Procedure [place] High Sensitivity Troponin (TNIH) and attachments. Platelets bldon 12-21-2021 Platelets (Bld) [#/Vol] 232 10*3/uL 150-450 [facility] Work Phone: Serum or plasma calcium mathew urement (mass/volume)on 12-21-2021 Calcium [Mass/Vol] 8.5 mg/dL 8.5-10.[address] [facility] Work Phone: Serum or plasma creatinine m easurement (mass/volume)on 12-21-2021 Creatinine [Mass/Vol] 0.92 mg/dL 0.55-1.02 [facility] Work Phone: Comment on above: The validity of the calculated GFR & GFRAA in patients over 70 years has not been determined. Clinical correlation is essential. Serum or plasma urea nitroge n measurement (mass/volume)on 12-21-2021 Urea nitrogen [Mass/Vol] 20 mg/dL 7-18 [facility] Work Phone: Thin prep Papanicolaou smear with manual screeningon 12-21-2021 Thin prep Papanicolaou smear with manual screening 7 5-15 [facility] Work Phone: Vital Signs Date Time Vital Sign Value Performing Clinician Facility 10-17-2024 08:54-0400 Body height 160 cm Zhanna Guadarrama MD Work Phone: [facility] 10-17-2024 08:54-0400 Body mass index (BMI) [Ratio] 44.46 kg/m2 Zhanna Guadarrama MD Work Phone: [facility] 10-17-2024 08:54-0400 Body weight 113.85 kg Zhanna Guadarrama MD Work Phone: [facility] 10-17-2024 08:54-0400 Diastolic blood pressure 87 mm[Hg] Zhanna Guadarrama MD Work Phone: [facility] 10-17-2024 08:54-0400 Heart rate 78 /min Zhanna Guadarrama MD Work Phone: [facility] 10-17-2024 08:54-0400 Systolic blood pressure 136 mm[Hg] Zhanna Guadarrama MD Work Phone: [facility] 07-12-2024 10:26-0400 Body height 160 cm Zhanna Guadarrama MD Work Phone: [facility] 07-12-2024 10:26-0400 Body mass index (BMI) [Ratio] 44.46 kg/m2 Zhanna Guadarrama MD Work Phone: [employer] 07-12-2024 10:26-0400 Body weight 113.85 kg Zhanna Guadarrama MD Work Phone: [employer] 07-12-2024 10:26-0400 Diastolic blood pressure 87 mm[Hg] Zhanna Guadarrama MD Work Phone: [employer] 07-12-2024 10:26-0400 Heart rate 78 /min Zhanna Guadarrama MD Work Phone: [employer] 07-12-2024 10:26-0400 Systolic blood pressure 136 mm[Hg] Zhanna Guadarrama MD Work Phone: [employer] 03-22-2024 08:17-0500 Body height 160 cm Casey Chang MD Work Phone: [employer] 03-22-2024 08:17-0500 Body mass index (BMI) [Ratio] 44.57 kg/m2 Casey Chang MD Work Phone: [facility] 03-22-2024 08:17-0500 Body weight 114.13 kg Casey Chang MD Work Phone: [employer] 03-22-2024 08:17-0500 Diastolic blood pressure 75 mm[Hg] Casey Chang MD Work Phone: [facility] 03-22-2024 08:17-0500 Heart rate 90 /min Casey Cahng MD Work Phone: [employer] 03-22-2024 08:17-0500 SaO2% (BldA) [Mass fraction] 94 % Casey Chang MD Work Phone: [employer] 03-22-2024 08:17-0500 Systolic blood pressure 116 mm[Hg] Casey Chang MD Work Phone: [employer] 11-22-2023 13:12-0400 Body height 160 cm Martha Lorenzo MD Work Phone: [facility] 11-22-2023 13:12-0400 Body mass index (BMI) [Ratio] 47.29 kg/m2 Martha Lorenzo MD Work Phone: [facility] 11-22-2023 13:12-0400 Body weight 121.1 kg Martha Lorenzo MD Work Phone: [facility] 11-22-2023 13:12-0400 Diastolic blood pressure 92 mm[Hg] Martha Lorenzo MD Work Phone: [facility] 11-22-2023 13:12-0400 Heart rate 90 /min Martha Lorenzo MD Work Phone: [facility] 11-22-2023 13:12-0400 Systolic blood pressure 150 mm[Hg] Martha Lorenzo MD Work Phone: [facility] 10-04-2023 10:41-0400 Diastolic blood pressure 62 mm[Hg] Martha Lorenzo MD Work Phone: [facility] 10-04-2023 10:41-0400 Heart rate 100 /min Martha Lorenzo MD Work Phone: [facility] 10-04-2023 10:41-0400 Systolic blood pressure 100 mm[Hg] Martha Lorenzo MD Work Phone: [facility] 09-08-2023 11:28-0400 Diastolic blood pressure 81 mm[Hg] Sanchez Poole PA-C Work Phone: [facility] 09-08-2023 11:28-0400 Heart rate 88 /min Sanchez Poole PA-C Work Phone: [facility] 09-08-2023 11:28-0400 Systolic blood pressure 129 mm[Hg] Sanchez Poole PA-C Work Phone: [facility] 08-25-2023 12:55-0400 Body temperature 98.4 [degF] Martha Lorenzo MD Work Phone: [facility] 08-25-2023 12:55-0400 Diastolic blood pressure 57 mm[Hg] Martha Lorenzo MD Work Phone: [facility] 08-25-2023 12:55-0400 Heart rate 90 /min Martha Lorenzo MD Work Phone: [facility] 08-25-2023 12:55-0400 Respiratory rate 16 /min Martha Lorenzo MD Work Phone: [facility] 08-25-2023 12:55-0400 SaO2% (BldA) [Mass fraction] 97 % Martha Lorenzo MD Work Phone: [facility] 08-25-2023 12:55-0400 Systolic blood pressure 112 mm[Hg] Martha Lorenzo MD Work Phone: [facility] 08-25-2023 05:47-0400 Body mass index (BMI) [Ratio] 47.37 kg/m2 Martha Lorenzo MD Work Phone: [facility] 08-25-2023 05:47-0400 Body weight 121.3 kg Martha Lorenzo MD Work Phone: [facility] 08-16-2023 11:03-0400 Body height 160 cm Casey Chang MD Work Phone: [facility] [employer] 08-16-2023 11:03-0400 Body mass index (BMI) [Ratio] 47.37 kg/m2 Casey Chang MD Work Phone: [facility] [employer] 08-16-2023 11:03-0400 Body weight 121.29 kg Casey Chang MD Work Phone: [facility] [employer] 08-16-2023 11:03-0400 Diastolic blood pressure 71 mm[Hg] Casey Chang MD Work Phone: [facility] [employer] 08-16-2023 11:03-0400 Heart rate 91 /min Casey Chang MD Work Phone: [facility] [employer] 08-16-2023 11:03-0400 SaO2% (BldA) [Mass fraction] 92 % Casey Chang MD Work Phone: [facility] [employer] 08-16-2023 11:03-0400 Systolic blood pressure 101 mm[Hg] Casey Chang MD Work Phone: [facility] 08-11-2023 13:27-0400 Body height 160 cm Pacc 2 Work Phone: [facility] 08-11-2023 13:27-0400 Body mass index (BMI) [Ratio] 47.45 kg/m2 Pacc 2 Work Phone: [facility] 08-11-2023 13:27-0400 Body temperature 99.1 [degF] Pacc 2 Work Phone: [facility] 08-11-2023 13:27-0400 Body weight 121.5 kg Pacc 2 Work Phone: [facility] 08-11-2023 13:27-0400 Diastolic blood pressure 79 mm[Hg] Pacc 2 Work Phone: [facility] 08-11-2023 13:27-0400 Heart rate 76 /min Pacc 2 Work Phone: [facility] 08-11-2023 13:27-0400 Respiratory rate 20 /min Pacc 2 Work Phone: [facility] 08-11-2023 13:27-0400 SaO2% (BldA) [Mass fraction] 96 % Pacc 2 Work Phone: [facility] 08-11-2023 13:27-0400 Systolic blood pressure 126 mm[Hg] Pacc 2 Work Phone: [facility] 07-28-2023 08:31-0400 Body height 160 cm Casey Chang MD Work Phone: [facility] [employer] 07-28-2023 08:31-0400 Body mass index (BMI) [Ratio] 48.86 kg/m2 Casey Chang MD Work Phone: [facility] [employer] 07-28-2023 08:31-0400 Body weight 125.1 kg Casey Chang MD Work Phone: [facility] 07-28-2023 08:31-0400 Diastolic blood pressure 86 mm[Hg] Casey Chang MD Work Phone: [facility] 07-28-2023 08:31-0400 Heart rate 80 /min Casey Chang MD Work Phone: [facility] 07-28-2023 08:31-0400 SaO2% (BldA) [Mass fraction] 96 % Casey Chang MD Work Phone: [facility] 07-28-2023 08:31-0400 Systolic blood pressure 135 mm[Hg] Casey Chang MD Work Phone: [facility] 07-13-2023 09:11-0400 Body mass index (BMI) [Ratio] 49.09 kg/m2 Martha Lorenzo MD Work Phone: [facility] 07-13-2023 09:11-0400 Body weight 125.69 kg Martha Lorenzo MD Work Phone: [facility] 07-13-2023 09:11-0400 Diastolic blood pressure 78 mm[Hg] Martha Lorenzo MD Work Phone: [facility] 07-13-2023 09:11-0400 Heart rate 77 /min Martha Lorenzo MD Work Phone: [facility] 07-13-2023 09:11-0400 Systolic blood pressure 126 mm[Hg] Martha Lorenzo MD Work Phone: [facility] 05-26-2023 11:01-0400 Body height 160 cm Casey Chang MD Work Phone: [facility] [employer] 05-26-2023 11:01-0400 Body mass index (BMI) [Ratio] 48.32 kg/m2 Casey Chang MD Work Phone: [facility] 05-26-2023 11:01-0400 Body weight 123.74 kg Casey Chang MD Work Phone: [facility] [employer] 05-26-2023 11:01-0400 Diastolic blood pressure 76 mm[Hg] Casey Chang MD Work Phone: [facility] 05-26-2023 11:01-0400 Heart rate 81 /min Casey Chang MD Work Phone: [facility] 05-26-2023 11:01-0400 SaO2% (BldA) [Mass fraction] 96 % Casey Chang MD Work Phone: [facility] 05-26-2023 11:01-0400 Systolic blood pressure 125 mm[Hg] Casey Chang MD Work Phone: [facility] 05-20-2023 23:40-0400 Body temperature 98.2 [degF] [facility] 05-20-2023 23:40-0400 Diastolic blood pressure 79 mm[Hg] [facility] 05-20-2023 23:40-0400 Heart rate 93 /min [facility] 05-20-2023 23:40-0400 Respiratory rate 19 /min [facility] 05-20-2023 23:40-0400 SaO2% (BldA) [Mass fraction] 91 % [facility] 05-20-2023 23:40-0400 Systolic blood pressure 140 mm[Hg] [facility] 05-20-2023 21:07-0400 Body height 162.56 cm [facility] 05-20-2023 21:07-0400 Body mass index (BMI) [Ratio] 47 kg/m2 [facility] 05-20-2023 21:07-0400 Body weight 124.3 kg [facility] 04-26-2023 11:50-0400 Body mass index (BMI) [Ratio] 48.01 kg/m2 Flakita Bridenthal SUPERVISOR GRADING - CLASSROOM TECHNOLOGY TECHNICIAN Work Phone: [facility] 04-26-2023 11:50-0400 Body temperature 98.6 [degF] Flakita Bridenthal SUPERVISOR GRADING - CLASSROOM TECHNOLOGY TECHNICIAN Work Phone: [facility] 04-26-2023 11:50-0400 Body weight 122.92 kg Flakita Bridenthal SUPERVISOR GRADING - CLASSROOM TECHNOLOGY TECHNICIAN Work Phone: [facility] [employer] 04-26-2023 11:50-0400 Diastolic blood pressure 72 mm[Hg] Flakita Lisaenthal SUPERVISOR GRADING - CLASSROOM TECHNOLOGY TECHNICIAN Work Phone: [facility] [employer] 04-26-2023 11:50-0400 Heart rate 86 /min Flakita Bridenthal SUPERVISOR GRADING - CLASSROOM TECHNOLOGY TECHNICIAN Work Phone: [facility] [employer] 04-26-2023 11:50-0400 Respiratory rate 24 /min Flakita Bridenthal SUPERVISOR GRADING - CLASSROOM TECHNOLOGY TECHNICIAN Work Phone: [facility] [employer] 04-26-2023 11:50-0400 Systolic blood pressure 130 mm[Hg] Flakita Lisaenthal SUPERVISOR GRADING - CLASSROOM TECHNOLOGY TECHNICIAN Work Phone: [facility] [employer] 01-20-2023 11:33-0500 Diastolic blood pressure 98 mm[Hg] Casey Chang MD Work Phone: [facility] [employer] 01-20-2023 11:33-0500 Heart rate 75 /min Casey Chang MD Work Phone: [facility] [employer] 01-20-2023 11:33-0500 Systolic blood pressure 151 mm[Hg] Casey Chang MD Work Phone: [facility] [employer] 01-20-2023 11:06-0500 Body height 160 cm Casey Chang MD Work Phone: [facility] [employer] 01-20-2023 11:06-0500 Body mass index (BMI) [Ratio] 49.1 kg/m2 Casey Chang MD Work Phone: [facility] [employer] 01-20-2023 11:06-0500 Body weight 125.74 kg Casey Chang MD Work Phone: [facility] [employer] 01-20-2023 11:06-0500 SaO2% (BldA) [Mass fraction] 95 % Casey Chang MD Work Phone: [facility] [employer] 10-21-2022 10:49-0400 Body height 160 cm Casey Chang MD Work Phone: [employer] 10-21-2022 10:49-0400 Body mass index (BMI) [Ratio] 47.12 kg/m2 Casey Chang MD Work Phone: [employer] 10-21-2022 10:49-0400 Body weight 120.66 kg Casey Chang MD Work Phone: [facility] 10-21-2022 10:49-0400 Diastolic blood pressure 79 mm[Hg] Casey Chang MD Work Phone: [employer] 10-21-2022 10:49-0400 Heart rate 86 /min Casey Chang MD Work Phone: [employer] 10-21-2022 10:49-0400 SaO2% (BldA) [Mass fraction] 93 % Casey Chang MD Work Phone: [facility] 10-21-2022 10:49-0400 Systolic blood pressure 118 mm[Hg] Casey Chang MD Work Phone: [employer] 09-22-2022 10:00-0400 Diastolic blood pressure 84 mm[Hg] Casey Chang MD Work Phone: [employer] 09-22-2022 10:00-0400 Heart rate 79 /min Casey Chang MD Work Phone: [facility] 09-22-2022 10:00-0400 Systolic blood pressure 137 mm[Hg] Casey Chang MD Work Phone: [employer] 09-22-2022 09:32-0400 Body height 160 cm Casey Chang MD Work Phone: [facility] 09-22-2022 09:32-0400 Body mass index (BMI) [Ratio] 47.37 kg/m2 Casey Chang MD Work Phone: [facility] 09-22-2022 09:32-0400 Body weight 121.29 kg Casey Chang MD Work Phone: [facility] 09-22-2022 09:32-0400 SaO2% (BldA) [Mass fraction] 94 % Casey Chang MD Work Phone: [facility] [employer] 09-07-2022 10:23-0400 Body height 160 cm Crystal Meranto SUPERVISOR GRADING - CLASSROOM TECHNOLOGY TECHNICIAN Work Phone: [facility] 09-07-2022 10:23-0400 Body mass index (BMI) [Ratio] 47.65 kg/m2 Crystal Meranto SUPERVISOR GRADING - CLASSROOM TECHNOLOGY TECHNICIAN Work Phone: [facility] 09-07-2022 10:23-0400 Body temperature 98.29 [degF] Crystal Meranto SUPERVISOR GRADING - CLASSROOM TECHNOLOGY TECHNICIAN Work Phone: [facility] [employer] 09-07-2022 10:23-0400 Body weight 122.02 kg Crystal Meranto SUPERVISOR GRADING - CLASSROOM TECHNOLOGY TECHNICIAN Work Phone: [facility] 09-07-2022 10:23-0400 Diastolic blood pressure 82 mm[Hg] Crystal Meranto SUPERVISOR GRADING - CLASSROOM TECHNOLOGY TECHNICIAN Work Phone: [facility] 09-07-2022 10:23-0400 Heart rate 72 /min Crystal Meranto SUPERVISOR GRADING - CLASSROOM TECHNOLOGY TECHNICIAN Work Phone: [facility] 09-07-2022 10:23-0400 SaO2% (BldA) [Mass fraction] 97 % Crystal Meranto SUPERVISOR GRADING - CLASSROOM TECHNOLOGY TECHNICIAN Work Phone: [facility] 09-07-2022 10:23-0400 Systolic blood pressure 135 mm[Hg] Crystal Meranto SUPERVISOR GRADING - CLASSROOM TECHNOLOGY TECHNICIAN Work Phone: [facility] 07-15-2022 14:29-0400 Body temperature 98.4 [degF] Gus Pendlebury SUPERVISOR GRADING.CLASSROOM TECHNOLOGY 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 07-15-2022 14:29-0400 Body weight 123.47 kg Gus Pendlebury SUPERVISOR GRADING.CLASSROOM TECHNOLOGY 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 07-15-2022 14:29-0400 Diastolic blood pressure 78 mm[Hg] Gus Pendlebury SUPERVISOR GRADING.CLASSROOM TECHNOLOGY 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 07-15-2022 14:29-0400 Heart rate 84 /min Gus Castaneda SUPERVISOR GRADING.CLASSROOM TECHNOLOGY 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 07-15-2022 14:29-0400 Respiratory rate 18 /min Gus Castaneda SUPERVISOR GRADING.CLASSROOM TECHNOLOGY 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 07-15-2022 14:29-0400 SaO2% (BldA) [Mass fraction] 95 % Gus Castaneda SUPERVISOR GRADING.CLASSROOM TECHNOLOGY 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 07-15-2022 14:29-0400 Systolic blood pressure 122 mm[Hg] Gus Castaneda SUPERVISOR GRADING.CLASSROOM TECHNOLOGY 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 06-18-2022 11:46-0400 Diastolic blood pressure 88 mm[Hg] Casey Chang MD Work Phone: [facility] [employer] 06-18-2022 11:46-0400 Heart rate 84 /min Casey Chang MD Work Phone: [facility] [employer] 06-18-2022 11:46-0400 Systolic blood pressure 143 mm[Hg] Casey Chang MD Work Phone: [facility] [employer] 06-18-2022 10:56-0400 Body height 161.9 cm Caesy Chang MD Work Phone: [facility] [employer] 06-18-2022 10:56-0400 Body mass index (BMI) [Ratio] 47.26 kg/m2 Casey Chang MD Work Phone: [facility] [employer] 06-18-2022 10:56-0400 Body temperature 98.71 [degF] Casey Chang MD Work Phone: [facility] [employer] 06-18-2022 10:56-0400 Body weight 123.92 kg Casey Chang MD Work Phone: [facility] [employer] 03-19-2022 10:09-0500 Diastolic blood pressure 84 mm[Hg] Casey Chang MD Work Phone: [facility] [employer] 03-19-2022 10:09-0500 Heart rate 81 /min Casey Chang MD Work Phone: [facility] 03-19-2022 10:09-0500 Systolic blood pressure 136 mm[Hg] Casey Chang MD Work Phone: [facility] 03-19-2022 09:44-0500 Body height 161.9 cm Casey Chang MD Work Phone: [facility] 03-19-2022 09:44-0500 Body mass index (BMI) [Ratio] 49.37 kg/m2 Casey Chang MD Work Phone: [facility] 03-19-2022 09:44-0500 Body weight 129.46 kg Casey Chang MD Work Phone: [facility] 03-05-2022 07:56-0500 Diastolic blood pressure 92 mm[Hg] Casey Chang MD Work Phone: [facility] 03-05-2022 07:56-0500 Heart rate 82 /min Casey Chang MD Work Phone: [facility] 03-05-2022 07:56-0500 Systolic blood pressure 138 mm[Hg] Casey Chang MD Work Phone: [facility] 03-05-2022 07:28-0500 Body height 161.9 cm Casey Chang MD Work Phone: [facility] 03-05-2022 07:28-0500 Body mass index (BMI) [Ratio] 49.41 kg/m2 Casey Chang MD Work Phone: [facility] 03-05-2022 07:28-0500 Body weight 129.55 kg Casey Chang MD Work Phone: [employer] 12-21-2021 17:41-0500 Diastolic blood pressure 77 mm[Hg] [facility] Work Phone: 12-21-2021 17:41-0500 Respiratory rate 18 /min [facility] Work Phone: 11-07-2022 17:41-0500 SaO2% (BldA) [Mass fraction] 99 % [facility] Work Phone: 12-21-2021 17:41-0500 Systolic blood pressure 156 mm[Hg] [facility] Work Phone: 12-21-2021 16:20-0500 Heart rate 77 /min [facility] Work Phone: 12-21-2021 12:36-0500 Body height 162.56 cm [facility] Work Phone: 12-21-2021 12:36-0500 Body mass index (BMI) [Ratio] 48 kg/m2 [facility] Work Phone: 12-21-2021 12:36-0500 Body temperature 97.8 [degF] [facility] Work Phone: 12-21-2021 12:36-0500 Body weight 126.91 kg [facility] Work Phone: 1960 01:00-0400 >na< Nathaly Nobles Dept. of Dermato logy Encounters Encounter Date Encounter Type Care Provider Facility Start: 12-24-2024 End: 12-24-2024 ambulatory [facility] Start: 12-07-2024 End: 12-10-2024 Refthalia Chang MD Work Phone: [facility] Start: 12-04-2024 End: 12-05-2024 Refill Gavino Zuniga SUPERVISOR GRADING - CLASSROOM TECHNOLOGY TECHNICIAN [facility] Start: 10-21-2024 End: 10-22-2024 Refthalia Zuniga SUPERVISOR GRADING - CLASSROOM TECHNOLOGY TECHNICIAN Work Phone: [facility] Comment on above: Anxiety Start: 10-17-2024 End: 10-17-2024 ambulatory [facility] Start: 10-17-2024 End: 10-17-2024 Office outpatient visit 25 minutes Nathalyjasbir Nobles SUPERVISOR GRADING-CLASSROOM TECHNOLOGY 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 Comment on above: Rosacea (Primary Dx) ; Hidradenitis suppurativa; Other chcf (current) drug therapy Start: 10-17-2024 End: 10-17-2024 ambulatory CASEY CHANG [facility] Start: 10-17-2024 End: 10-17-2024 Office outpatient visit 15 minutes Zhanna Guadarrama MD Work Phone: [facility] Comment on above: Primary osteoarthrit is of right knee (Primary Dx) Start: 10-08-2024 End: 10-09-2024 Refill Casey Chang MD Work Phone: [facility] Start: 10-05-2024 End: 10-05-2024 E-mail encounter from caregiver Martha Lorenzo MD Work Phone: Hospital Appointments Start: 10-05-2024 End: 10-05-2024 Patient encounter procedure Martha Lorenzo MD Work Phone: Hospital Appointments Comment on above: Appointment Cancella tion Start: 09-05-2024 End: 09-05-2024 Refill Casey Chang MD Work Phone: [facility] Start: 08-07-2024 End: 08-07-2024 Telephone encounter Gavino Zuniga SUPERVISOR GRADING - CLASSROOM TECHNOLOGY TECHNICIAN Work Phone: [facility] Comment on above: Med Refill Anxiety Start: 07-25-2024 End: 07-25-2024 Telephone encounter Casey Chang MD Work Phone: [facility] Comment on above: Other Start: 07-23-2024 End: 07-23-2024 Refill [facility] Start: 07-12-2024 End: 07-12-2024 Office outpatient new 30 minutes Zhanna Guadarrama MD Work Phone: [facility] Comment on above: Primary osteoarthrit is of right knee; Acute pain of right knee Start: 07-12-2024 End: 07-12-2024 ambulatory ZHANNA GUADARRAMA [facility] Start: 07-12-2024 End: 07-12-2024 Subsequent hospital visit by physician Zhanna Guadarrama MD Work Phone: [facility] Comment on above: Acute pain of right knee Start: 07-07-2024 End: 07-10-2024 Refill Casey Chang MD Work Phone: [facility] Start: 06-01-2024 End: 06-04-2024 ambulatory Yu Cooney RN [facility] Clinical Communication Start: 06-01-2024 End: 06-04-2024 Patient encounter procedure Yu Cooney RN [facility] Communication Start: 05-21-2024 End: 05-23-2024 Refill Casey Chang MD Work Phone: [facility] Start: 05-10-2024 End: 05-11-2024 ambulatory Mona Lincoln RN [facility] Clinical Communication Start: 05-10-2024 End: 05-11-2024 Patient encounter procedure Mona Lincoln RN [facility] Clinical Communication Start: 04-24-2024 End: 04-25-2024 Refill Casey Chang MD Work Phone: [facility] Start: 04-19-2024 End: 04-19-2024 ambulatory CASEY CHANG [facility] Start: 03-23-2024 End: 03-23-2024 Telephone encounter Casey Chang MD Work Phone: [facility] Comment on above: Results Start: 03-22-2024 End: 03-22-2024 Patient encounter procedure Casey Chang MD Work Phone: [facility] Work Phone: Start: 03-22-2024 End: 03-22-2024 Periodic preventive med est patient 40-64yrs Casey Chang MD Work Phone: [facility] Comment on above: Annual physical exam (Primary Dx); Mild intermittent asthma without complication; Primary hypertension; Vitamin D deficiency; Anxiety; Major depressive disorder in partial remission, unspecified whether recurrent (HCC); Idiopathic 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; Hypercholesterolemia; Screening for diabetes mellitus; Screening for colon cancer; Muscle spasms of both lower extremities Start: 03-22-2024 End: 03-22-2024 ambulatory [facility] Start: 03-22-2024 End: 03-22-2024 Encounter for general adult medical examination without abnormal findings [facility] Start: 03-19-2024 End: 03-19-2024 Office outpatient visit 25 minutes [facility] SUPERVISOR GRADING-CLASSROOM TECHNOLOGY 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 Comment on above: Rosacea (Primary Dx) ; Hidradenitis suppurativa Start: 03-19-2024 End: 03-19-2024 ambulatory [facility] Start: 03-05-2024 End: 03-05-2024 ambulatory Violet Lofton RN [facility] Clinical Communication Start: 03-05-2024 End: 03-05-2024 Patient encounter procedure Violet Lofton RN [facility] Clinical Communication Start: 02-03-2024 End: 02-06-2024 Refill Gavino Zuniga SUPERVISOR GRADING - CLASSROOM TECHNOLOGY TECHNICIAN Work Phone: [facility] Start: 01-04-2024 End: 01-04-2024 Refthalia Chang MD Work Phone: [facility] Start: 12-07-2023 End: 12-07-2023 ambulatory Rajinder Brownlee MD Work Phone: [facility] Comment on above: Radiculopathy, lumba r region (Primary Dx); Acute right-sided low back pain with right-sided sciatica Start: 11-30-2023 End: 11-30-2023 Follow-up encounter Rajinder Brownlee MD Work Phone: [facility] Comment on above: Radiculopathy, lumba r region (Primary Dx); Acute right-sided low back pain with right-sided sciatica Start: 11-22-2023 End: 11-22-2023 ambulatory CASEY CHANG Facility:[facility] Start: 11-22-2023 End: 11-22-2023 Patient encounter procedure Martha Lorenzo MD Work Phone: Neurosurgery Comment on above: Postop check (Primar y Dx); Status post lumbar spine operative procedure for decompression of spinal cord Start: 11-17-2023 End: 11-17-2023 Follow-up encounter Rajinder Brownlee MD Work Phone: [facility] Comment on above: Radiculopathy, lumba r region (Primary Dx); Acute right-sided low back pain with right-sided sciatica Start: 11-10-2023 End: 11-10-2023 ambulatory Rajinder Brownlee MD Work Phone: [facility] Comment on above: Radiculopathy, lumba r region (Primary Dx); Acute right-sided low back pain with right-sided sciatica Start: 11-08-2023 End: 11-08-2023 Follow-up encounter Rajinder Brownlee MD Work Phone: [facility] Comment on above: Radiculopathy, lumba r region (Primary Dx); Acute right-sided low back pain with right-sided sciatica Start: 10-27-2023 End: 10-27-2023 Follow-up encounter Rajinder Brownlee MD Work Phone: [facility] Comment on above: Radiculopathy, lumba r region (Primary Dx) Start: 10-13-2023 End: 10-13-2023 Follow-up encounter Rajinder Brownlee MD Work Phone: [facility] Comment on above: Radiculopathy, lumba r region (Primary Dx) Start: 10-13-2023 End: 10-13-2023 Office outpatient visit 25 minutes Nathalyjasbir Nobles SUPERVISOR GRADING-CLASSROOM TECHNOLOGY 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 Comment on above: Hidradenitis suppura tiva (Primary Dx) Start: 10-10-2023 End: 10-10-2023 Refill Casey Chang MD Work Phone: [facility] Start: 10-05-2023 End: 10-05-2023 ambulatory Rajinder Brownlee MD Work Phone: [facility] Comment on above: Radiculopathy, lumba r region Start: 10-04-2023 End: 10-04-2023 Subsequent hospital visit by physician [facility] Comment on above: Status post lumbar s pine operative procedure for decompression of spinal cord [Z98.890] Start: 10-04-2023 End: 10-04-2023 ambulatory MARTHA LORENZO Facility:[facility] Start: 10-04-2023 End: 01-03-2024 Patient encounter procedure Martha Lorenzo MD Work Phone: Neurosurgery Comment on above: Status post lumbar s pine operative procedure for decompression of spinal cord (Primary Dx) Radiculopathy, lumba r region (Primary Dx) Start: 09-22-2023 Telephone encounter Martha aguilar MD Work Phone: Neurosurgery Comment on above: Patient Question; Pa in Start: 09-09-2023 Telephone encounter Martha aguilar MD Work Phone: Neurosurgery Comment on above: Patient Update Start: 09-08-2023 End: 09-08-2023 ambulatory CASEY CHANG Facility:[facility] Start: 09-08-2023 End: 09-08-2023 Patient encounter procedure Sanchez Poole PA-C Work Phone: Spine Surgery Comment on above: Radiculopathy, lumba r region (Primary Dx) Start: 09-05-2023 End: 09-05-2023 Refill Casey Chang MD Work Phone: [facility] Start: 08-29-2023 Telephone encounter Martha aguilar MD Work Phone: Neurosurgery Comment on above: Surgical Follow Up Start: 08-28-2023 Telephone encounter Edinson Dom anthony APRN.CLASSROOM TECHNOLOGY TECHNICIAN Work Phone: General Neurology Comment on above: Patient Question Start: 08-26-2023 Admission to [facility] Martha Lorenzo MD Work Phone: Neurosurgery Comment on above: Yesterday's surgery Start: 08-26-2023 ambulatory Martha Lorenzo MD Work Phone: Neurosurgery Start: 08-25-2023 ambulatory MARTHA LORENZO Facility: [facility] Start: 08-25-2023 End: 08-25-2023 Subsequent hospital visit by physician Martha Lorenzo MD Work Phone: [facility] Surgical Services Comment on above: Spinal stenosis of l umbar region with neurogenic claudication [M48.062], Radiculopathy, lumbar region [M54.16] Start: 08-24-2023 End: 08-24-2023 ambulatory Elyssa Rizo PSYD Work Phone: Neurology Pain Comment on above: Chronic pain syndrom e (Primary Dx); Radiculopathy, lumbar region; Spinal stenosis of lumbar region with neurogenic claudication Start: 08-24-2023 End: 08-24-2023 Telemedicine consultation with patient Elyssa Rizo PSYD Work Phone: Neurology Pain Start: 08-16-2023 ambulatory CASEY CHANG Facility:[facility] Start: 08-16-2023 End: 08-16-2023 Subsequent hospital visit by physician Margaret [facility] Radiology Comment on above: Spinal stenosis of l umbar region with neurogenic claudication [M48.062] Radiculopathy, lumba r region [M54.16] Start: 08-16-2023 End: 08-16-2023 Office outpatient visit 15 minutes Casey Chang MD Work Phone: [facility] Comment on above: Dyspnea on exertion (Primary Dx); Primary osteoarthritis involving multiple joints; Primary hypertension Start: 08-15-2023 Telephone encounter Martha aguilar MD Work Phone: Neurosurgery Comment on above: Pre-Op Teaching (DOS 08/25/2023) Start: 08-11-2023 End: 08-11-2023 ambulatory [facility] Start: 08-11-2023 Encounter for other preprocedural examination [facility] Start: 08-11-2023 End: 08-11-2023 Refill Flakita Jose REYESN - CLASSROOM TECHNOLOGY TECHNICIAN Work Phone: [facility] Comment on above: Acute right-sided lo w back pain with right-sided sciatica Start: 08-11-2023 End: 08-11-2023 Admission to establishment [place] [id number] Work Phone: Pre Anesthesia Start: 08-11-2023 End: 08-11-2023 Anesthesia consultation [place] [id number] Work Phone: Pre Anesthesia Comment on above: Pre-op evaluation (P rimary Dx); High cholesterol; Primary hypertension; Moderate persistent asthma without complication; Gastroesophageal reflux disease, unspecified whether esophagitis present; Hepatic steatosis; Hidradenitis suppurativa; Depression, unspecified depression type Start: 08-11-2023 End: 08-11-2023 Preprocedural examination done [place] [id number] Work Phone: [facility] Work Phone: Start: 08-11-2023 End: 08-11-2023 ambulatory [facility] Start: 08-11-2023 Encounter for other preprocedural examination [facility] Start: 08-09-2023 Telephone encounter Martha aguilar MD Work Phone: Neurosurgery Comment on above: Patient Question Start: 08-04-2023 Telephone encounter Martha aguilar MD Work Phone: Neurosurgery Comment on above: Patient Question Start: 08-03-2023 Patient encounter status Jonathan Lorenzo MD Work Phone: [facility] Start: 08-03-2023 Patient Update Martha Lorenzo MD Work Phone: Neurosurgery Comment on above: Orders Start: 08-03-2023 Preoperative state Martha Lyle MD Work Phone: [facility] Start: 08-02-2023 Telephone encounter Martha aguilar MD Work Phone: Neurosurgery Comment on above: Schedule Surgery Start: 08-02-2023 End: 08-02-2023 Admission to same day surgery center Martha Lorenzo MD Work Phone: Neurosurgery Comment on above: Radiculopathy, lumba r region (Primary Dx); Spinal stenosis of lumbar region with neurogenic claudication Start: 08-02-2023 End: 08-02-2023 ambulatory MARTHA LORENZO Facility:[facility] Start: 08-02-2023 End: 08-02-2023 Telemedicine consultation with patient Martha Lorenzo MD Work Phone: Neurosurgery Start: 07-28-2023 End: 07-28-2023 [facility] Start: 07-28-2023 End: 07-28-2023 Patient encounter procedure Emg 2 Neur [place] Mc (Max Weight: 400) Work Phone: Neurology Start: 07-28-2023 End: 07-28-2023 Office outpatient visit 25 minutes Casey Chang MD Work Phone: [facility] Comment on above: Dyspnea on exertion (Primary Dx); Primary hypertension; Dependent edema Start: 07-27-2023 ambulatory Ruth Neal Clinical Communication Start: 07-27-2023 Patient encounter procedure Ruth Neal Clinical Communication Start: 07-21-2023 Documentation procedure Joana Chester t PT [facility] [employer] [facility] at [facility] Start: 07-18-2023 End: 07-18-2023 ambulatory [facility] Start: 07-13-2023 End: 07-13-2023 ambulatory MARTHA LORENZO Facility:[facility] Start: 07-13-2023 End: 07-13-2023 Patient encounter procedure Martha Lorenzo MD Work Phone: Neurosurgery Comment on above: Neuropathy of right peroneal nerve (Primary Dx); Radiculopathy, lumbar region Start: 07-13-2023 ambulatory [facility] Facility:[facility] Start: 07-13-2023 End: 07-13-2023 Subsequent hospital visit by physician [facility] Comment on above: Spondylolisthesis of lumbar region [M43.16] Start: 07-12-2023 End: 07-12-2023 Office outpatient visit 25 minutes Nathaly Nobles SUPERVISOR GRADING-CLASSROOM TECHNOLOGY 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 Comment on above: Hidradenitis suppura tiva (Primary Dx) Start: 07-08-2023 End: 07-08-2023 Telephone encounter Jayne Graves RN [facility] Comment on above: Colon Cancer Screeni ng; Colonoscopy (Screening program ) Start: 06-23-2023 Chart abstracting Unk Pcp (Hist) Nicole bonner Start: 06-16-2023 ambulatory [facility] Facility:[facility] Start: 06-16-2023 End: 06-16-2023 Subsequent hospital visit by physician [facility] (1.5t[facility] Start: 06-14-2023 End: 06-14-2023 Follow-up encounter Flakita Garcia SUPERVISOR GRADING - CLASSROOM TECHNOLOGY TECHNICIAN Work Phone: [facility] Comment on above: Acute right-sided lo w back pain with right-sided sciatica (Primary Dx) Start: 06-14-2023 Cornelio Zuniga SUPERVISOR GRADING - CLASSROOM TECHNOLOGY TECHNICIAN Work Phone: [facility] Start: 06-09-2023 End: 06-09-2023 ambulatory Flakita Garcia SUPERVISOR GRADING - CLASSROOM TECHNOLOGY TECHNICIAN Work Phone: [facility] Comment on above: Acute right-sided lo w back pain with right-sided sciatica (Primary Dx) Start: 06-04-2023 End: 06-04-2023 Follow-up encounter Flakita Garcia SUPERVISOR GRADING - CLASSROOM TECHNOLOGY TECHNICIAN Work Phone: [facility] Comment on above: Acute right-sided lo w back pain with right-sided sciatica (Primary Dx) Start: 05-27-2023 End: 05-27-2023 Follow-up encounter Flakita Garcia SUPERVISOR GRADING - CLASSROOM TECHNOLOGY TECHNICIAN Work Phone: [facility] Comment on above: Acute right-sided lo w back pain with right-sided sciatica (Primary Dx) Start: 05-26-2023 End: 05-26-2023 Office outpatient visit 15 minutes Casey Chang MD Work Phone: [facility] Comment on above: Primary hypertension (Primary Dx); Acute right-sided low back pain with right-sided sciatica; Screening for colon cancer Start: 05-25-2023 End: 05-25-2023 Patient encounter procedure [facility], [facility] Work Phone: Start: 05-25-2023 End: 05-25-2023 ambulatory Casey Chang [facility] Work Phone: Start: 05-20-2023 End: 05-21-2023 Emergency department patient visit [place] Facility:[facility] Start: 05-20-2023 End: 05-20-2023 Emergency department patient visit [facility] Work Phone: Start: 05-20-2023 End: 05-20-2023 Follow-up encounter Flakita Garcia SUPERVISOR GRADING - CLASSROOM TECHNOLOGY TECHNICIAN Work Phone: [facility] Comment on above: Acute right-sided lo w back pain with right-sided sciatica (Primary Dx) Start: 05-17-2023 Cornelio Zuniga SUPERVISOR GRADING - CLASSROOM TECHNOLOGY TECHNICIAN Work Phone: [facility] Start: 05-16-2023 End: 05-16-2023 Follow-up encounter Flakita Paigeda SUPERVISOR GRADING - CLASSROOM TECHNOLOGY TECHNICIAN Work Phone: [facility] Comment on above: Acute right-sided lo w back pain with right-sided sciatica (Primary Dx) Start: 05-13-2023 End: 05-13-2023 Follow-up encounter Flakita Garcia SUPERVISOR GRADING - CLASSROOM TECHNOLOGY TECHNICIAN Work Phone: [facility] Comment on above: Acute right-sided lo w back pain with right-sided sciatica (Primary Dx) Start: 05-11-2023 Refill Flakita Shanks kimberly SUPERVISOR GRADING - CLASSROOM TECHNOLOGY TECHNICIAN Work Phone: [facility] Comment on above: Acute right-sided lo w back pain with right-sided sciatica Start: 05-09-2023 End: 05-09-2023 ambulatory Flakitaquique Gonzalezalicia SUPERVISOR GRADING - CLASSROOM TECHNOLOGY TECHNICIAN Work Phone: [facility] Comment on above: Acute right-sided lo w back pain with right-sided sciatica Start: 04-26-2023 End: 04-26-2023 Office outpatient visit 15 minutes Flakita Garcia SUPERVISOR GRADING - CLASSROOM TECHNOLOGY TECHNICIAN Work Phone: [facility] Medicine Comment on above: Acute right-sided lo w back pain with right-sided sciatica (Primary Dx) Start: 03-15-2023 Refill Casey Chang MD Work Phone: [facility] Start: 02-26-2023 Refill Casey Chang MD Work Phone: [facility] Start: 01-20-2023 End: 01-20-2023 Office outpatient visit 25 minutes Casey Chang MD Work Phone: [facility] Comment on above: Mild intermittent as thma without complication (Primary Dx); Primary hypertension; Vitamin D deficiency; High cholesterol; Major depressive disorder in partial remission, unspecified whether recurrent (HCC); Anxiety; Idiopathic 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; Screening for diabetes mellitus Start: 01-14-2023 Refill Casey Chang MD Work Phone: [facility] Start: 10-21-2022 End: 10-21-2022 Office outpatient visit 25 minutes Casey Chang MD Work Phone: [facility] Comment on above: Primary hypertension (Primary Dx); Anxiety; Major depressive disorder in partial remission, unspecified whether recurrent (HCC); Diarrhea in adult patient Start: 09-22-2022 End: 09-22-2022 Office outpatient visit 10 minutes Casey Chang MD Work Phone: [facility] Comment on above: Hepatic steatosis (P rimary Dx) Start: 09-10-2022 End: 09-10-2022 ambulatory Anu Guadalupe SUPERVISOR GRADING - CLASSROOM TECHNOLOGY TECHNICIAN Work Phone: [facility] Comment on above: Arrived Start: 09-09-2022 End: 09-09-2022 Subsequent hospital visit by physician [facility] Us Exam Room 2 [facility] Comment on above: Nausea and vomiting; Bloating; Epigastric burning sensation Start: 09-07-2022 End: 09-07-2022 Office outpatient new 45 minutes Anu Guadalupe SUPERVISOR GRADING - CLASSROOM TECHNOLOGY TECHNICIAN Work Phone: [facility] Comment on above: Nausea and vomiting (Primary Dx); Bloating; Epigastric burning sensation; Diarrhea; Gastroesophageal reflux disease; Irritable bowel syndrome (IBS) Start: 09-01-2022 End: 09-01-2022 Emergency department patient visit Luis Myers Facility:[facility] Start: 08-18-2022 Refill Flakita harris SUPERVISOR GRADING - CLASSROOM TECHNOLOGY TECHNICIAN Work Phone: [facility] Start: 08-04-2022 Admission to [facility] Casey Chang Work Phone: Ambulatory Surgery Start: 08-04-2022 Patient encounter procedure Casey Chang Work Phone: Ambulatory Surgery Start: 07-15-2022 End: 07-15-2022 Office outpatient visit 15 minutes Gus Castaneda APRN.CLASSROOM TECHNOLOGY TECHNICIAN Work Phone: [facility] Comment on above: Loose stools (Primar y Dx) Start: 06-18-2022 End: 06-18-2022 ambulatory [facility] Comment on above: Arrived Start: 06-18-2022 Patient encounter procedure Erin Lloyd [facility] Clinical Communication Comment on above: Diarrhea, unspecifie d (Primary Dx) Start: 06-18-2022 End: 06-18-2022 Office outpatient visit 15 minutes Casey Chang MD Work Phone: [facility] Medicine Comment on above: Diarrhea in adult pa michael (Primary Dx); Primary hypertension Start: 05-16-2022 Refill Casey Chang MD Work Phone: [facility] Start: 05-10-2022 End: 05-10-2022 ambulatory Maya Alcantar JAVIER.CLASSROOM TECHNOLOGY TECHNICIAN Work Phone: Telemedicine Comment on above: COVID-19 virus infec tion (Primary Dx); Acute cough; Bacterial sinusitis Start: 05-10-2022 End: 05-10-2022 Telemedicine consultation with patient Maya Alcantar APRN.CLASSROOM TECHNOLOGY TECHNICIAN Work Phone: [facility] Start: 05-02-2022 End: 05-02-2022 ambulatory Marzena Phelan SUPERVISOR GRADING.CLASSROOM TECHNOLOGY TECHNICIAN Work Phone: Telemedicine Comment on above: Positive self-admini stered antigen test for COVID-19 (Primary Dx) Start: 05-02-2022 End: 05-02-2022 Telemedicine consultation with patient Marzena Phelan APRN.CLASSROOM TECHNOLOGY TECHNICIAN Work Phone: [facility] Start: 04-01-2022 Refill Casey Chang MD Work Phone: [facility] Start: 03-19-2022 End: 03-19-2022 Office outpatient visit 25 minutes Casey Chang MD Work Phone: [facility] Comment on above: Anxiety (Primary Dx) ; Major depressive disorder in partial remission, unspecified whether recurrent (HCC); Primary hypertension Start: 03-05-2022 End: 03-05-2022 Office outpatient visit 25 minutes Casey Chang MD Work Phone: [facility] Comment on above: Moderate episode of recurrent major depressive disorder (HCC) (Primary Dx); Anxiety Start: 03-03-2022 Telephone encounter Casey Stephenson MD Work Phone: [facility] Comment on above: Medication Problem Start: 12-23-2021 ambulatory Alma Rosa Mitchell jasbir REYESNLeaCLASSROOM TECHNOLOGY TECHNICIAN Work Phone: [facility] [place] Start: 12-21-2021 End: 12-21-2021 Emergency department patient visit [facility] Start: 12-18-2021 ambulatory UNKNOWN UNKNOWN Facilit [id number] Start: 12-18-2021 Office outpatient vi sit 15 minutes Nathaly Nobles Dept. of Dermatology Start: 04-17-2021 ambulatory Nathaly Kg Facility:[phone] Start: 04-16-2021 End: 04-17-2021 Office outpatient visit 15 minutes Nathaly Kg Dept. of Dermatology Start: 04-16-2021 End: 04-17-2021 Office outpatient visit 25 minutes Nathaly Kg Dept. of Dermatology Start: 04-09-2020 End: 04-10-2020 Office outpatient visit 15 minutes Nathaly Kg Dept. of Dermatology Start: 04-17-2019 End: 04-18-2019 Office outpatient new 30 minutes Nathaly Kg Dept. of Dermatology Start: 04-17-2019 End: 04-18-2019 Office outpatient visit 15 minutes Nathaly Kg Dept. of Dermatology Procedures Date Procedure Procedure Detail Performing Clinician Start: 07-12-2024 Radiologic examinati on knee 1/2 views Zhanna Guadarrama MD Work Phone: Start: 03-22-2024 Lipid 1996 panel - S carlene or Plasma Casey Chang MD Work Phone: Start: 08-25-2023 XR VERIFY LEVEL L-SPINE NB Martha Lorenzo MD Work Phone: Start: 07-28-2023 Nerve conduction otis dies 5-6 studies Martha Lorenzo MD Work Phone: Start: 07-28-2023 Ecg routine ecg w/le ast 12 lds w/i&r Casey Chang MD Work Phone: Start: 05-25-2023 X-ray of lumbar spin e, two or three views Start: 05-20-2023 Plain chest X-ray Start: 05-20-2023 SARS-CoV-2, Influenz a & RSV (PCR) Start: 01-20-2023 Lipid 1995 panel - S carlene or Plasma Casey Chang MD Work Phone: Start: 09-09-2022 Us abdominal real ti me w/image documentation Crystal Marilin Sageanto SUPERVISOR GRADING - CLASSROOM TECHNOLOGY TECHNICIAN Work Phone: Start: 06-18-2022 Iadna-dna/rna gi pth gn multiplex probe tq 02-07 Casey Chang MD Work Phone: Start: 06-18-2022 Inf agent det nuclei c acid clostridium amp probe Casey Chang MD Work Phone: Start: 01-28-2022 Lipid 1996 panel - S carlene or Plasma Casey Chang MD Work Phone: Start: 12-21-2021 MRI of brain without contrast Start: 12-21-2021 Plain chest X-ray Start: 12-21-2021 CT angiography of he ad and neck Start: 07-17-2020 Mammography Erin hardy RN Plan of Treatment Date Care Activity Detail Author Start: 01-01-2032 DTaP/Tdap/Td Vaccines (3 - Td or Tdap) DTaP/Tdap/Td Vaccines (3 - Td or Tdap) [facility] Start: 01-01-2032 Urine microalbumin profile DTaP,Tdap,Td Vaccine (3 - Td or Tdap) [facility] Start: 10-01-2031 DTaP/Tdap/Td Vaccines (2 - Td or Tdap) DTaP/Tdap/Td Vaccines (2 - Td or Tdap) [facility] Start: 03-22-2029 Lipid panel Lipid Panel [facility] Start: 01-21-2028 Lipid panel [facility] Start: 01-28-2027 Lipid panel Lipid Panel [facility] Start: 07-27-2026 Diabetes Screening Diabetes Screening [facility] Start: 01-20-2026 Diabetes Screening Diabetes Screening [facility] Start: 03-23-2025 Yearly Adult Physical Yearly Adult Physical [facility] Start: 02-20-2025 End: 02-20-2025 Patient encounter procedure 02/20/2025 1:45 PM EST Office Visit [facility] [address] [phone] Nathaly Nobles APRN-CLASSROOM TECHNOLOGY TECHNICIAN [address] [place] [address] [facility] Start: 12-11-2024 End: 12-11-2024 Patient encounter procedure Neurosurgery Comment on above: 10/05 mychart message Start: 10-17-2024 End: 10-17-2025 Mycobacterium tuberculosis stimulated gamma interferon and spot count panel - Blood T-Spot TB Lab Routine Hidradenitis suppurativa Other chcf (current) drug therapy Expected: 10/17/2024 (Approximate), Expires: 10/17/2025 [facility] Service Area Work Phone: Comment on above: Expected: 10/17/2024 (Approximate), Expi res: 10/17/2025 Start: 10-17-2024 End: 10-17-2024 Patient encounter procedure 10/17/2024 8:30 AM EDT Office Visit [facility] Orthopedics and Sports Medicine [facility] [address] [facility] [address] [place] [address] Zhanna Guadarrama MD [address] [place] [address] [facility] Start: 10-16-2024 End: 10-16-2024 Patient encounter procedure 10/16/2024 1:15 PM EDT Office Visit [facility] [address] [place] [address] Casey Chang MD [address] [place] [address] [facility] Start: 10-15-2024 COVID-19 Vaccine ( season) COVID-19 Vaccine ( season) [facility] Start: 10-15-2024 COVID-19 Vaccine ( season) COVID-19 Vaccine () [facility] Start: 10-15-2024 Influenza vaccination Influenza Vaccine (#1) [facility] Start: 10-03-2024 BP Controlled (<130/80) BP Controlled (<130/80) [facility] Start: 09-19-2024 Depression Monitoring Depression Monitoring [facility] Start: 09-17-2024 End: 09-17-2024 Patient encounter procedure [facility] Start: 08-10-2024 BP Controlled (<130/80) BP Controlled (<130/80) [facility] Start: 07-17-2024 Diabetes mellitus screening Diabetes Screening [facility] Start: 07-12-2024 BP Controlled (<130/80) BP Controlled (<130/80) [facility] Start: 07-12-2024 End: 07-12-2024 Patient encounter procedure 07/12/2024 10:00 AM EDT Office Visit [facility] [address] [place] [phone] Zhanna Guadarrama MD [address] [place] [address] [facility] [place] Start: 2024 End: 2024 Patient encounter procedure 2024 1:45 PM EDT Office Visit [facility] [address] [place] [address] [place] [address] Casey Chang MD [address] [place] [address], [place] [address] [facility] Start: 05-25-2024 Hepatitis A Vaccines (1 of 2 - Risk 2-dose series) Hepatitis A Vaccines (1 of 2 - Risk 2-dose series) [facility] Comment on above: Postponed from 06/20/1979 (Patient Refus ed) Start: 05-25-2024 Hepatitis B Vaccines (1 of 3 - Risk 3-dose series) Hepatitis B Vaccines (1 of 3 - Risk 3-dose series) [facility] Comment on above: Postponed from 2020 (Patient Refus ed) Start: 05-25-2024 RSV Immunization aged 60 or older (1 - 1-dose 60+ series) RSV Immunization aged 60 or older (1 - 1-dose 60+ series) [facility] Comment on above: Postponed from 2020 (Patient Refus ed) Start: 05-25-2024 RSV Immunization for Adults (1 - Risk 60-74 years 1-dose series) RSV Immunization for Adults (1 - Risk 60-74 years 1-dose series) [facility] Comment on above: Postponed from 2020 (Patient Refus ed) Start: 04-20-2024 End: 03-23-2025 25-hydroxyvitamin D3 [Mass/volume] in Serum or Plasma Vitamin D Deficiency Screening (Vit D 25) Lab Routine Vitamin D deficiency Expected: 04/20/2024 (Approximate), Expires: 03/23/2025 [facility] Work Phone: Comment on above: Expected: 04/20/2024 (Approximate), Expi res: 03/23/2025 Start: 04-19-2024 End: 04-19-2024 Clinical Support 04/19/2024 9:00 AM EST Clinical Support [facility] [address] [place] [address] [place] [address] [facility] Start: 04-13-2024 End: 04-13-2024 Patient encounter procedure 04/13/2024 1:00 PM EST Office Visit [facility] [address] [place] [address] Nathaly Nobles, SUPERVISOR GRADING-CLASSROOM TECHNOLOGY TECHNICIAN [address] [facility] [address] [place] [address] [facility] Start: 03-22-2024 End: 03-21-2025 25-hydroxyvitamin D3 [Mass/volume] in Serum or Plasma Vitamin D Deficiency Screening (Vit D 25) Lab Routine Vitamin D deficiency Expected: 03/22/2024 (Approximate), Expires: 03/21/2025 [facility] Comment on above: Expected: 03/22/2024 (Approximate), Expi res: 03/21/2025 Start: 03-22-2024 End: 03-21-2025 Comprehensive metabolic 1998 panel - Serum or Plasma Comprehensive metabolic panel Lab Routine Screening for diabetes mellitus Expected: 03/22/2024 (Approximate), Expires: 03/21/2025 [facility] Comment on above: Expected: 03/22/2024 (Approximate), Expi res: 03/21/2025 Start: 03-22-2024 End: 03-21-2025 Lipid 1996 panel - Serum or Plasma Lipid panel Lab Routine Hypercholesterolemia Expected: 03/22/2024 (Approximate), Expires: 03/21/2025 [facility] Work Phone: Comment on above: Expected: 03/22/2024 (Approximate), Expi res: 03/21/2025 Start: 03-22-2024 End: 03-21-2025 Urate [Mass/volume] in Serum or Plasma Uric acid Lab Routine Idiopathic 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 Expected: 03/22/2024 (Approximate), Expires: 03/21/2025 [facility] Comment on above: Expected: 03/22/2024 (Approximate), Expi res: 03/21/2025 Start: 03-22-2024 End: 03-22-2024 Patient encounter procedure 03/22/2024 8:30 AM EST Office Visit [facility] [address] [place] [address] [place] [address] [place] [address] Casey Chang MD [address] [place] [address] [place] [address] [facility] Start: 02-17-2024 End: 02-17-2024 Patient encounter procedure 02/17/2024 11:00 AM EST Office Visit [address] [phone] Nathaly Nobles APRN-[address] [address] [facility] Start: 12-07-2023 End: 12-07-2023 ambulatory 12/07/2023 11:30 AM EDT Evaluation [facility] Therapy at [address] [place] [phone] Rajinder Brownlee MD [address] [place] [address] Rohith Tyler, PT [facility] Health Therapy at [facility] Start: 11-30-2023 End: 11-30-2023 Follow-up encounter 11/30/2023 11:30 AM EDT Follow-Up [facility] Therapy at [address] [place] [phone] Rajinder Brownlee MD [address] [place] [address] Madan Turner, ROHITH [facility] Health Therapy at [facility] Start: 11-25-2023 Depression Monitoring Depression Monitoring [facility] Start: 11-25-2023 Depresssion Monitoring Depresssion Monitoring [facility] Health Start: 11-23-2023 End: 11-23-2023 Follow-up encounter 11/23/2023 11:30 AM EDT [facility] Therapy at [address] [place] [phone] Rajinder Brownlee MD [address] [place], [place] [phone] Rohith Tyler, PT [facility] Health Therapy at [facility] Start: 11-22-2023 End: 11-22-2023 Patient encounter procedure 11/22/2023 1:30 PM EDT Office Visit Neurosurgery [address] [place], [place] [phone] Martha Lorenzo MD [address] [place], [place] [phone] 6 wk follow up ANDRES 10/04/23 Neurosurgery Comment on above: 6 wk follow up ANDRES 10/04/23 Start: 11-16-2023 End: 11-16-2023 Follow-up encounter 11/16/2023 1:00 PM EDT Follow-Up [facility] Health Therapy at [address] [place] [phone] Rajinder Brownlee MD [address] [place] [address] Rohith Tyler, PT [facility] Health Therapy at [facility] Start: 11-10-2023 End: 11-10-2023 ambulatory 11/10/2023 11:30 AM EDT Evaluation [facility] Health Therapy at [address] [place] [phone] Rajinder Brownlee MD [address] [place], [place] [phone] Rohith Tyler, PT [facility] Therapy at [facility] Start: 11-04-2023 End: 11-04-2023 ambulatory 11/04/2023 12:30 PM EDT Evaluation [facility] Therapy at [address] [place] [phone] Rajinder Brownlee MD [address] [place] [address] Rohith Tyler, PT [facility] Therapy at [facility] Start: 11-01-2023 End: 11-01-2023 Follow-up encounter 11/01/2023 12:30 PM EDT Follow-Up [facility] Therapy at [address] [place] [phone] Rajinder Brownlee MD [address] [place] [address] Madan Turner, SYSTEM SUPPORT DEVELOPER [facility] Therapy at [facility] Start: 10-27-2023 End: 10-27-2023 Follow-up encounter 10/27/2023 12:30 PM EDT Follow-Up [facility] Therapy at [address] [place] [phone] Rajinder Brownlee MD [address] [place] [address] Madan Turner, SYSTEM SUPPORT DEVELOPER [facility] Therapy at [facility] Start: 10-25-2023 End: 10-25-2023 Follow-up encounter 10/25/2023 2:00 PM EDT Follow-Up [facility] Therapy at [address] [place] [phone] Rajinder Brownlee MD [address] [place] [address] Madan Turner, SYSTEM SUPPORT DEVELOPER [facility] Therapy at [facility] Start: 10-19-2023 End: 10-19-2023 Follow-up encounter 10/19/2023 1:00 PM EDT Follow-Up [facility] Health Therapy at [address] [place] [phone] Rajinder Brownlee MD [address] [place], [place] [phone] Madan Turner, SYSTEM SUPPORT DEVELOPER [facility] Health Therapy at [facility] Start: 10-16-2023 COVID-19 Vaccine ( season) COVID-19 Vaccine ( season) [facility] Start: 10-16-2023 Covid-19 Vaccine () Covid-19 Vaccine () [facility] Start: 10-16-2023 Influenza vaccination Influenza Vaccine (#1) [facility] Start: 10-13-2023 End: 10-13-2023 Follow-up encounter 10/13/2023 1:00 PM EDT Follow-Up [facility] at [address] [place] [phone] Rajinder Brownlee MD [address] [place] [address] Tabatha Irby, PT [facility] Health Therapy at [facility] Start: 10-04-2023 End: 10-04-2023 Patient encounter procedure 10/04/2023 11:00 AM EDT Office Visit Neurosurgery [address] [place] [address] Martha Lorenzo MD [address] [place], [place] [id number] 2nd post op Neurosurgery Comment on above: 2nd post op Start: 10-03-2023 End: 10-03-2023 Patient encounter procedure 10/03/2023 1:00 PM EDT Office Visit Neurosurgery [address] [place] [address] Matrha Lorenzo MD [address] [place], [place] [id number] 2nd post op Neurosurgery Comment on above: 2nd post op Start: 09-22-2023 Hepatitis C screening Hepatitis C Screening [facility] Comment on above: Postponed from 1978 (Patient Refus ed) Start: 09-22-2023 HIV screening HIV Screening [facility] Comment on above: Postponed from 1960 (Patient Refus ed) Start: 09-22-2023 Screening for malignant neoplasm of lung Lung Cancer Screening [facility] Comment on above: Postponed from 2010 (Patient Refus ed) Start: 09-20-2023 End: 09-20-2023 Patient encounter procedure 09/20/2023 1:00 PM EDT Appointment [facility] Non-Invasive Cardiology [address] [place] [phone] Casey Chang MD [address] [place] [address], [address] [place], [place] [phone] [facility] Non-Invasive Cardiology Start: 09-08-2023 End: 09-08-2023 Patient encounter procedure 09/08/2023 11:40 AM EDT Office Visit Spine Surgery [address] [place], [place] [phone] Edinson Hale PA-C [address] [place] [address] 1st post op Spine Surgery Comment on above: 1st post op Start: 08-25-2023 End: 08-25-2023 Admission to same day surgery center 08/25/2023 7:30 AM EDT - 08/25/2023 9:45 AM EDT Surgery [facility] Surgical Services [address] [place] [address] Martha Lorenzo MD [address] [place], [place] [phone] DECOMPRESSION LAMINECTOMY LUMBAR POSTERIOR LEVEL 1 (Right L4/5 MIS Decompression) [facility] Surgical Services Comment on above: DECOMPRESSION LAMINECTOMY LUMBAR POSTERI OR LEVEL 1 (Right L4/5 MIS Decompression) Start: 08-25-2023 End: 08-25-2023 Hansen facetectomy & foramotomy 1 segment lumbar DECOMPRESSION LAMINECTOMY LUMBAR POSTERIOR LEVEL 1 Spinal stenosis of lumbar region with neurogenic claudication Radiculopathy, lumbar region 08/25/2023 7:30 AM EDT HL OR Start: 08-25-2023 Subsequent hospital visit by physician [facility] Surgical Services Comment on above: Spinal stenosis of lumbar region with ne urogenic claudication [M48.062], Radiculopathy, lumbar region [M54.16] Start: 08-24-2023 End: 08-24-2023 ambulatory 08/24/2023 1:00 PM EDT [facility] Neurology Pain [address] [place], [place] [id number] Elyssa Rizo PSYD [address] [place] [address] [facility] Neurology Pain Comment on above: [facility] Start: 08-16-2023 End: 08-16-2023 Patient encounter procedure Radiology Comment on above: Spinal stenosis of lumbar region with ne urogenic claudication [M48.062] Start: 08-11-2023 End: 08-11-2023 Anesthesia consultation 08/11/2023 1:20 PM EDT PAT Pre Anesthesia [address] [place] [address] 2, Pacc Goodrich [address] [place] [address] Pre op Pre Anesthesia Comment on above: Pre op Start: 08-11-2023 End: 08-11-2023 Patient encounter procedure 08/11/2023 9:30 AM EDT Office Visit [facility] Medicine [address] [place] [address] [place] [address] Casey Chang MD [address] [place] [address] [place] [address] [facility] Medicine Start: 08-03-2023 End: 01-30-2024 STAPHYLOCOCCUS AUREUS & MRSA SCREEN, PCR, NASAL STAPHYLOCOCCUS AUREUS & MRSA SCREEN, PCR, NASAL Lab Routine Spinal stenosis of lumbar region with neurogenic claudication Radiculopathy, lumbar region Preoperative clearance Pre-op testing Expected: 08/03/2023, Expires: 01/30/2024 [facility] Work Phone: Comment on above: Expected: 08/03/2023, Expires: Start: 08-02-2023 End: 08-02-2023 Follow-up encounter 08/02/2023 10:20 AM EDT [facility] Neurosurgery [address] [place], [place] [id number] Martha Lorenzo MD [address] [place], [place] [phone] follow up/ EMG to be complete Neurosurgery Comment on above: follow up/ EMG to be complete Start: 07-31-2023 BP Controlled (<130/80) BP Controlled (<130/80) [facility] Start: 07-28-2023 End: 07-27-2024 CBC W Auto Differential panel - Blood CBC auto differential Lab Routine Dyspnea on exertion Expected: 07/28/2023 (Approximate), Expires: 07/27/2024 [facility] Comment on above: Expected: 07/28/2023 (Approximate), Expi res: 07/27/2024 Start: 07-28-2023 End: 07-27-2024 Comprehensive metabolic 1998 panel - Serum or Plasma Comprehensive metabolic panel Lab Routine Dyspnea on exertion Expected: 07/28/2023 (Approximate), Expires: 07/27/2024 [facility] Work Phone: Comment on above: Expected: 07/28/2023 (Approximate), Expi res: 07/27/2024 Start: 07-28-2023 End: 07-27-2024 Natriuretic peptide B [Mass/volume] in Blood NT PRO BNP Lab Routine Dyspnea on exertion Dependent edema Expected: 07/28/2023 (Approximate), Expires: 07/27/2024 [facility] Comment on above: Expected: 07/28/2023 (Approximate), Expi res: 07/27/2024 Start: 07-28-2023 End: 07-27-2025 US Heart Transthoracic Transthoracic echocardiogram (TTE) complete with contrast, bubble, strain, and 3D PRN CV Echocardiography Routine Dyspnea on exertion Expected: 07/28/2023 (Approximate), Expires: 07/27/2025 [facility] Comment on above: Expected: 07/28/2023 (Approximate), Expi res: 07/27/2025 Start: 07-28-2023 End: 07-28-2023 ambulatory 07/28/2023 1:05 PM EDT Procedure Neurology [address] [place], [place] [phone] Neuropathy of right peroneal nerve [G57.31] Neurology Comment on above: Neuropathy of right peroneal nerve [G57. 31] Start: 07-28-2023 End: 07-28-2023 Patient encounter procedure 07/28/2023 8:30 AM EDT Office Visit [facility] Family Medicine [address] [place] [address] Casey Chang MD [address] [place] [address] [phone] [facility] Start: 07-16-2023 BP CONTROLLED (<130/80) BP CONTROLLED (<130/80) [facility] Start: 07-12-2023 End: 07-11-2024 CBC W Auto Differential panel - Blood CBC and Auto Differential Lab Routine Hidradenitis suppurativa Expected: 07/12/2023 (Approximate), Expires: 07/11/2024 [facility] Work Phone: Comment on above: Expected: 07/12/2023 (Approximate), Expi res: 07/11/2024 Start: 07-12-2023 End: 07-11-2024 Comprehensive metabolic 2000 panel - Serum or Plasma Comprehensive metabolic panel Lab Routine Hidradenitis suppurativa Expected: 07/12/2023 (Approximate), Expires: 07/11/2024 [facility] Work Phone: Comment on above: Expected: 07/12/2023 (Approximate), Expi res: 07/11/2024 Start: 07-12-2023 End: 07-11-2024 Hepatitis B virus core Ab [Presence] in Serum Hepatitis B Core Antibody, Total Lab Routine Hidradenitis suppurativa Expected: 07/12/2023 (Approximate), Expires: 07/11/2024 [facility] Work Phone: Comment on above: Expected: 07/12/2023 (Approximate), Expi res: 07/11/2024 Start: 07-12-2023 End: 07-11-2024 Hepatitis B virus surface Ab [Units/volume] in Serum Hepatitis B Surface Antibody Lab Routine Hidradenitis suppurativa Expected: 07/12/2023 (Approximate), Expires: 07/11/2024 [facility] Work Phone: Comment on above: Expected: 07/12/2023 (Approximate), Expi res: 07/11/2024 Start: 07-12-2023 End: 07-11-2024 Hepatitis B virus surface Ag [Presence] in Serum or Plasma by Immunoassay Hepatitis B Surface Antigen Lab Routine Hidradenitis suppurativa Expected: 07/12/2023 (Approximate), Expires: 07/11/2024 [facility] Work Phone: Comment on above: Expected: 07/12/2023 (Approximate), Expi res: 07/11/2024 Start: 07-12-2023 End: 07-11-2024 Hepatitis C virus Ab [Presence] in Serum Hepatitis C Antibody Lab Routine Hidradenitis suppurativa Expected: 07/12/2023 (Approximate), Expires: 07/11/2024 [facility] Work Phone: Comment on above: Expected: 07/12/2023 (Approximate), Expi res: 07/11/2024 Start: 07-12-2023 End: 07-11-2024 Mycobacterium tuberculosis stimulated gamma interferon and spot count panel - Blood T-SPOT (Tb) Lab Routine Hidradenitis suppurativa Expected: 07/12/2023 (Approximate), Expires: 07/11/2024 [facility] Service Area Work Phone: Comment on above: Expected: 07/12/2023 (Approximate), Expi res: 07/11/2024 Start: 06-22-2023 End: 06-22-2023 Follow-up encounter 06/22/2023 3:00 PM EDT Follow-Up [facility] at [address] [place] [address] BridenthalMarilynFlakita, SUPERVISOR GRADING - CLASSROOM TECHNOLOGY TECHNICIAN [address] [place] [address] [place] [address] Lubna Luna, PT [facility] at [facility] Start: 06-14-2023 End: 06-14-2023 Follow-up encounter 06/14/2023 4:00 PM EDT Follow-Up [facility] at [address] [place] [phone] Flakita Garcia, SUPERVISOR GRADING - CLASSROOM TECHNOLOGY TECHNICIAN [address] [place] [address] Lubna Luna, PT [facility] Start: 06-11-2023 End: 06-11-2023 Follow-up encounter 06/11/2023 11:30 AM EDT Follow-Up [facility] at [address] [place] [phone] Flakita Garcia, SUPERVISOR GRADING - CLASSROOM TECHNOLOGY TECHNICIAN [address] [place] [address] [place] [address] Maya Turner SYSTEM SUPPORT DEVELOPER [facility] Start: 06-09-2023 End: 06-09-2023 ambulatory 06/09/2023 1:30 PM EDT Evaluation [facility] at [address] [place] [phone] BridenthalMarilynFlakita, SUPERVISOR GRADING - CLASSROOM TECHNOLOGY TECHNICIAN [address] [place] [address] Joana Schaefer, PT [facility] Start: 06-06-2023 End: 06-06-2023 ambulatory [facility] Start: 06-04-2023 End: 06-04-2023 Follow-up encounter 06/04/2023 11:30 AM EDT Follow-Up [facility] at [address] [place] [phone] Lubna Luna, PT [facility] Start: 06-02-2023 End: 06-02-2023 Follow-up encounter 06/02/2023 11:30 AM EDT Follow-Up [facility] at [address] [place] [phone] Madan Turner, SYSTEM SUPPORT DEVELOPER [facility] Start: 05-30-2023 End: 05-30-2023 Follow-up encounter [facility] Start: 05-27-2023 End: 05-27-2023 Follow-up encounter [facility] Start: 05-26-2023 End: 05-26-2023 Follow-up encounter 05/26/2023 11:30 AM EDT Follow-Up [facility] at [address] [place] [address] Joana Schaefer, PT [facility] Start: 05-26-2023 End: 05-26-2023 Patient encounter procedure 05/26/2023 11:00 AM EDT Office Visit [facility] [place] [address] Casey Chang MD [address] [facility] [place] [address] [facility] Start: 05-23-2023 End: 05-23-2023 Follow-up encounter [facility] Start: 05-20-2023 [facility] Start: 05-20-2023 End: 05-20-2023 Follow-up encounter 05/20/2023 10:30 AM EDT Follow-Up [facility] at [address] [place] [phone] Flakita Garcia, SUPERVISOR GRADING - CLASSROOM TECHNOLOGY TECHNICIAN [address] [place] [address] Lubna Luna, PT [facility] Start: 05-19-2023 End: 05-19-2023 Follow-up encounter 05/19/2023 11:30 AM EDT Follow-Up [facility] at [address] [place] [phone] Madan Turner, SYSTEM SUPPORT DEVELOPER [facility] Start: 05-16-2023 End: 05-16-2023 Follow-up encounter 05/16/2023 11:30 AM EDT Follow-Up [facility] at [address] [place] [phone] Flakita Garcia, SUPERVISOR GRADING - CLASSROOM TECHNOLOGY TECHNICIAN [address] [facility] [address] Madan Turner, SYSTEM SUPPORT DEVELOPER [facility] Start: 05-13-2023 End: 05-13-2023 Follow-up encounter 05/13/2023 12:00 PM EDT Follow-Up [facility] at [address] [place] [phone] Joana Schafeer, PT [facility] Start: 05-09-2023 End: 05-09-2023 ambulatory 05/09/2023 1:30 PM EDT Evaluation [facility] at [address] [place] [phone] Flakita Garcia, SUPERVISOR GRADING - CLASSROOM TECHNOLOGY TECHNICIAN [address] [place] [address] [place] [address] Joana Schaefer, PT [facility] Health Therapy at [facility] Start: 04-14-2023 Covid-19 Vaccine ( season) Covid-19 Vaccine () [facility] Start: 03-02-2023 End: 03-02-2023 Admission to same day surgery center [facility] Endoscopy Comment on above: COLONOSCOPY, EGD [55330 (CPT )] COLONOSCOPY, ESOPHAG OGASTRODUODENOSCOPY [03791 (CPT )] Start: 03-02-2023 End: 03-02-2023 Colonoscopy flx dx w/collj spec when pfrmd COLONOSCOPY Nausea and/or vomiting Bloating Diarrhea GERD (gastroesophageal reflux disease) Irritable bowel syndrome 03/02/2023 2:30 PM EST [facility] Gastroenterology Start: 03-02-2023 End: 03-02-2023 Esophagogastroduodenoscopy transoral diagnostic EGD DIAGNOSTIC Nausea and/or vomiting Bloating Diarrhea GERD (gastroesophageal reflux disease) Irritable bowel syndrome 03/02/2023 2:30 PM EST [facility] Gastroenterology Start: 03-02-2023 Subsequent hospital visit by physician 03/02/2023 2:30 PM EST Hospital Encounter [facility] Endoscopy [address] [place] [phone] Bobby Mcgovern [address] [facility] [address] [place] [address] [facility] Endoscopy Start: 02-14-2023 Behavioral Health Screening Behavioral Health Screening [facility] Start: 01-20-2023 End: 01-21-2024 25-hydroxyvitamin D3 [Mass/volume] in Serum or Plasma Vitamin D Deficiency Screening (Vit D 25) Lab Routine Vitamin D deficiency Expected: 01/20/2023 (Approximate), Expires: 01/21/2024 [employer] Comment on above: Expected: 01/20/2023 (Approximate), Expi res: 01/21/2024 Start: 01-20-2023 End: 01-21-2024 Comprehensive metabolic 1998 panel - Serum or Plasma Comprehensive metabolic panel Lab Routine Screening for diabetes mellitus Expected: 01/20/2023 (Approximate), Expires: 01/21/2024 [facility] [employer] Work Phone: Comment on above: Expected: 01/20/2023 (Approximate), Expi res: 01/21/2024 Start: 01-20-2023 End: 01-21-2024 Lipid 1996 panel - Serum or Plasma Lipid panel Lab Routine High cholesterol Expected: 01/20/2023 (Approximate), Expires: 01/21/2024 [facility] Comment on above: Expected: 01/20/2023 (Approximate), Expi res: 01/21/2024 Start: 01-20-2023 End: 01-21-2024 Urate [Mass/volume] in Serum or Plasma Uric acid Lab Routine Idiopathic 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 Expected: 01/20/2023 (Approximate), Expires: 01/21/2024 [facility] Comment on above: Expected: 01/20/2023 (Approximate), Expi res: 01/21/2024 Start: 01-20-2023 End: 01-20-2023 Patient encounter procedure 01/20/2023 11:00 AM EST Office Visit [facility] Medicine [address] [facility] [place] [address] Casey Chang MD [address] [facility] [place] [address] [facility] Start: 12-24-2022 End: 12-24-2022 Admission to same day surgery center 12/24/2022 10:30 AM EST - 12/24/2022 11:30 AM EST Surgery [facility] [address] [place] [address] Bobby Mcgovern [address] [place] [address] COLONOSCOPY, EGD [73020 (CPT )] [facility] Comment on above: COLONOSCOPY, EGD [72776 (CPT )] Start: 12-24-2022 End: 12-24-2022 Colonoscopy flx dx w/collj spec when pfrmd COLONOSCOPY Nausea and/or vomiting Bloating Diarrhea GERD (gastroesophageal reflux disease) Irritable bowel syndrome 12/24/2022 10:30 AM EST [facility] Gastroenterology Start: 12-24-2022 End: 12-24-2022 Esophagogastroduodenoscopy transoral diagnostic EGD DIAGNOSTIC Nausea and/or vomiting Bloating Diarrhea GERD (gastroesophageal reflux disease) Irritable bowel syndrome 12/24/2022 10:30 AM EST [facility] Gastroenterology Start: 12-24-2022 Subsequent hospital visit by physician 12/24/2022 10:30 AM EST Hospital Encounter [facility] Endoscopy [address] [place] [address] Bobby Mcgovern [address] [place] [address] [facility] Endoscopy Start: 10-21-2022 End: 10-21-2022 Patient encounter procedure 10/21/2022 11:00 AM EDT Office Visit [facility] [address] [place] [address] Casey Chang MD [address] [facility] [place] [address] [facility] Start: 10-15-2022 COVID-19 Vaccine ( season) COVID-19 Vaccine ( season) [facility] Start: 10-15-2022 Influenza vaccination Influenza Vaccine (#1) [facility] Start: 09-22-2022 End: 09-22-2022 Patient encounter procedure 09/22/2022 9:45 AM EDT Office Visit [facility] [address] [facility] [place] [address] Casey Chang MD [address] [facility] [place] [address] [facility] Start: 09-15-2022 Depresssion Monitoring Depresssion Monitoring [facility] Start: 09-07-2022 End: 09-08-2023 Ova and parasite examination Ova and parasite examination Microbiology Routine Nausea and vomiting Diarrhea Bloating Epigastric burning sensation Expected: 09/07/2022 (Approximate), Expires: 09/08/2023 [facility] Comment on above: Expected: 09/07/2022 (Approximate), Expi res: 09/08/2023 Start: 09-07-2022 End: 09-08-2023 Pancreatic elastase, fecal Pancreatic elastase, fecal Lab Routine Nausea and vomiting Diarrhea Bloating Epigastric burning sensation Expected: 09/07/2022 (Approximate), Expires: 09/08/2023 [facility] Work Phone: Comment on above: Expected: 09/07/2022 (Approximate), Expi res: 09/08/2023 Start: 06-18-2022 End: 2023 Clostridioides difficile toxin A+B tcdA+tcdB genes [Presence] in Stool by [facility] with probe detection C. difficile Toxins EIA Microbiology Routine Diarrhea in adult patient Expected: 06/18/2022 (Approximate), Expires: 2023 [facility] Work Phone: Comment on above: Expected: 06/18/2022 (Approximate), Expi res: 2023 Start: 06-18-2022 End: 2023 Gastrointestinal pathogens panel - Stool by [employer] with probe detection Gastrointestinal PCR Panel Microbiology Routine Diarrhea in adult patient Expected: 06/18/2022 (Approximate), Expires: 2023 [facility] Comment on above: Expected: 06/18/2022 (Approximate), Expi res: 2023 Start: 04-05-2022 End: 04-05-2022 Patient encounter procedure 04/05/2022 Office Visit [facility] [place] [address] [facility] Start: 03-19-2022 End: 03-19-2022 Patient encounter procedure 03/19/2022 Office Visit Family Casey Owusu MD [address] [facility] [place] [address] [facility] Start: 03-05-2022 End: 03-05-2022 Patient encounter procedure 03/05/2022 Office Visit Family Medicine Casey Chang MD [address] [facility] [place] [address] [facility] Start: 02-14-2022 DEPRESSION ASSESSMENT DEPRESSION ASSESSMENT [facility] Start: 12-25-2021 ANNUAL PCP TEAM CHRONIC DISEASE VISIT ANNUAL PCP TEAM CHRONIC DISEASE VISIT [facility] Start: 12-21-2021 Oxygen therapy [facility] Work Phone: Start: 12-21-2021 [facility] Work Phone: Start: 10-15-2021 Influenza vaccination INFLUENZA (#1) [facility] Start: 08-25-2021 COVID-19 Vaccine (5 - Booster for Pfizer series) COVID-19 Vaccine (5 - Booster for Pfizer series) [facility] Start: 08-25-2021 COVID-19 VACCINE (6 - Booster for Pfizer series) COVID-19 VACCINE (6 - Booster for Pfizer series) [facility] Start: 07-17-2021 Screening for malignant neoplasm of breast Mammogram [facility] Start: 02-14-2021 DEPRESSION ASSESSMENT DEPRESSION ASSESSMENT [facility] Start: 12-06-2020 COVID-19 VACCINE (4 - Booster for Pfizer series) COVID-19 VACCINE (4 - Booster for Pfizer series) [facility] Start: 2020 Hepatitis B Vaccines (1 of 3 - Risk 3-dose series) Hepatitis B Vaccines (1 of 3 - Risk 3-dose series) [facility] Start: 2020 RSV High Risk: (Elderly (60+) or Population) (1 - Risk 60-74 years 1-dose series) RSV High Risk: (Elderly (60+) or Population) (1 - Risk 60-74 years 1-dose series) [facility] Start: 2020 RSV Immunization aged 60 or older (1 - 1-dose 60+ series) RSV Immunization aged 60 or older (1 - 1-dose 60+ series) [facility] Start: 2020 RSV Immunization for Adults (1 - Risk 60-74 years 1-dose series) RSV Immunization for Adults (1 - Risk 60-74 years 1-dose series) [facility] Start: 2020 RSV patients and/or patients aged 60+ years (1 - 1-dose 60+ series) RSV patients and/or patients aged 60+ years (1 - 1-dose 60+ series) [facility] Start: 2020 RSV Vaccine (1 - 1-dose 60+ series) RSV Vaccine (1 - 1-dose 60+ series) [facility] Start: 2020 RSV Vaccine (1 - Risk 60-74 years 1-dose series) RSV Vaccine (1 - Risk 60-74 years 1-dose series) [facility] Start: 2010 Screening for malignant neoplasm of lung Lung Cancer Screening [facility] Start: 2005 COLOGUARD (FIT-DNA) COLOGUARD (FIT-DNA) [facility] Start: 2005 Colonoscopy COLONOSCOPY [facility] Start: 2005 COLORECTAL CANCER SCREENING COLORECTAL CANCER SCREENING [facility] Start: [address] COLONOGRAPHY [facility] Start: 2005 DIABETES SCREEN DIABETES SCREEN [facility] Start: 2005 FECAL OCCULT BLOOD FECAL OCCULT BLOOD [facility] Start: 2005 LIPID SCREEN LIPID SCREEN [facility] Start: 2005 Screening for malignant neoplasm of colon [facility] Start: 2005 SIGMOIDOSCOPY SIGMOIDOSCOPY [facility] Start: 2000 Mammography MAMMOGRAM [facility] Start: 2000 Screening for malignant neoplasm of breast [facility] Start: 1990 HPV TESTING HPV TESTING [facility] Start: 1990 Screening for malignant neoplasm of cervix HPV Testing [facility] Start: 1981 PAP TESTING PAP TESTING [facility] Start: 1981 Screening for malignant neoplasm of cervix [facility] Start: 06-20-1979 Hepatitis A Vaccines (1 of 2 - Risk 2-dose series) Hepatitis A Vaccines (1 of 2 - Risk 2-dose series) [facility] Start: 06-20-1979 SHINGRIX VACCINE (1 of 2) SHINGRIX VACCINE (1 of 2) [facility] Start: 06-20-1979 Urine microalbumin profile DTAP,TDAP,TD (1 - Tdap) [facility] Start: 1978 BP CONTROLLED (<130/80) BP CONTROLLED (<130/80) [facility] in Start: 1978 Diabetes mellitus screening Diabetes Screening [facility] Start: 1978 HEPATITIS C SCREENING HEPATITIS C SCREENING [facility] Start: 1978 Hepatitis C screening Hepatitis C Screening [facility] Start: 1978 HIV SCREENING HIV SCREENING [facility] Start: 1978 HIV screening HIV Screening [facility] Start: 1978 Spirometry Spirometry [facility] Start: 06-20-1971 Screening for malignant neoplasm of cervix Cervical Cancer Screening [facility] Start: 1966 PNEUMOCOCCAL (1 - PCV) PNEUMOCOCCAL (1 - PCV) [facility] Start: 1961 MMR Vaccines (1 of 1 - Standard series) MMR Vaccines (1 of 1 - Standard series) [facility] Start: 1960 Annual wellness visit Medicare Initial Physical (IPPE) [facility] Start: 1960 Hepatitis B Vaccines (1 of 3 - 3-dose series) Hepatitis B Vaccines (1 of 3 - 3-dose series) [facility] Start: 1960 HIV screening HIV Screening [facility] Start: 1960 Lipid panel Lipid Panel [facility] Start: 1960 Screening for malignant neoplasm of colon [facility] Start: 1960 Yearly Adult Physical Yearly Adult Physical [facility] Cologuard colon canc er screening Cologuard colon cancer screening Lab Routine Screening for colon cancer Ordered: 03/22/2024 [facility] Comment on above: Ordered: 03/22/2024 End: 08-31-2024 CT Lumbar spine WO contrast CT LUMBAR SPINE WO IVCON Radiology Routine Spinal stenosis of lumbar region with neurogenic claudication 1 Occurrences starting 08/02/2023 until 08/31/2024 [facility] Work Phone: Comment on above: 1 Occurrences starting 08/02/2023 until 08/31/2024 CT Lumbar spine WO contrast CT L UMBAR SPINE WO IVCON Radiology Routine Spinal stenosis of lumbar region with neurogenic claudication 08/16/2023 5:14 PM EDT [facility] Work Phone: ECG COMPLETE ECG COMPLETE ECG Routine Pre-op evaluation Ordered: 08/11/2023 [facility] Work Phone: Comment on above: Ordered: 08/11/2023 End: 07-12-2024 EMG(NEURO/NI) EMG(NEURO/NI) EMG Routine Neuropathy of right peroneal nerve Radiculopathy, lumbar region 1 Occurrences starting 07/13/2023 until 07/12/2024 [facility] Work Phone: Comment on above: 1 Occurrences starting 07/13/2023 until 07/12/2024 Hansen facetectomy & fo ramotomy 1 segment lumbar DECOMPRESSION LAMINECTOMY LUMBAR POSTERIOR LEVEL 1 Spinal stenosis of lumbar region with neurogenic claudication Radiculopathy, lumbar region [facility] OUTSIDE PROCEDURE SCAN OUTSIDE P ROCEDURE SCAN Procedures Ordered: 06/18/2022 [facility] Comment on above: Ordered: 06/18/2022 OUTSIDE PROCEDURE SCAN OUTSIDE P ROCEDURE SCAN Procedures Ordered: 09/08/2022 [facility] Comment on above: Ordered: 09/08/2022 OUTSIDE PROCEDURE SCAN OUTSIDE P ROCEDURE SCAN Procedures Ordered: 09/10/2022 [facility] Comment on above: Ordered: 09/10/2022 Ova and parasite examination Ova and parasite examination Microbiology Routine Nausea and vomiting Diarrhea Bloating Epigastric burning sensation 09/10/2022 10:00 AM EDT [facility] [employer] Pancreatic elastase, fecal Pancr eatic elastase, fecal Lab Routine Nausea and vomiting Diarrhea Bloating Epigastric burning sensation 09/10/2022 10:00 AM EDT [facility] Patient Education [facility] Work Phone: Patient referral [facility] Work Phone: End: 01-22-2023 Screening mammography bi 2-view breast inc cad TOM SCREENING Radiology Routine Encounter for screening mammogram for breast cancer 1 Occurrences starting 12/23/2021 until 01/22/2023 [facility] Work Phone: Comment on above: 1 Occurrences starting 12/23/2021 until 01/22/2023 End: 11-02-2024 XR HIP BILATERAL 5V PEL/AP/LAT EACH HIP XR HIP BILATERAL 5V PEL/AP/LAT EACH HIP Radiology Routine Status post lumbar spine operative procedure for decompression of spinal cord 1 Occurrences starting 10/04/2023 until 11/02/2024 [facility] Work Phone: Comment on above: 1 Occurrences starting 10/04/2023 until 11/02/2024 XR HIP BILATERAL 5V PEL/AP/LAT EACH HIP XR HIP BILATERAL 5V PEL/AP/LAT EACH HIP Radiology Routine Status post lumbar spine operative procedure for decompression of spinal cord 10/04/2023 11:55 AM EDT [facility] End: 07-29-2024 XR Lumbar spine Views W flexion and W extension XR LUMBAR MOTION 4V AP/LAT/ FLEX/EXT Radiology Routine Spondylolisthesis of lumbar region 1 Occurrences starting 06/30/2023 until 07/29/2024 [facility] Work Phone: Comment on above: 1 Occurrences starting 06/30/2023 until 07/29/2024 XR Lumbar spine View s W flexion and W extension XR LUMBAR MOTION 4V AP/LAT/ FLEX/EXT Radiology Routine Spondylolisthesis of lumbar region 07/13/2023 8:27 AM EDT [facility] Work Phone: End: 08-31-2024 XR Thoracic and lumbar spine Views for scoliosis W standing XR SCOLIOSIS PA STAND/LAT 2V Radiology Routine Radiculopathy, lumbar region Spinal stenosis of lumbar region with neurogenic claudication 1 Occurrences starting 08/02/2023 until 08/31/2024 [facility] Comment on above: 1 Occurrences starting 08/02/2023 until 08/31/2024 XR Thoracic and lumb ar spine Views for scoliosis W standing XR SCOLIOSIS PA STAND/LAT 2V Radiology Routine Radiculopathy, lumbar region Spinal stenosis of lumbar region with neurogenic claudication 08/16/2023 5:37 PM EDT [facility] Work Phone: [facility] Immunizations Immunization Date Immunization Notes Care Provider [facility] 03-22-2024 influenza, seasonal, injectable, preservative free Casey Chang MD Work Phone: [facility] 03-22-2024 influenza virus vaccine, unspecified formulation Casey Chang MD Work Phone: [facility] 01-20-2023 influenza, injectabl e, quadrivalent, preservative free Casey Chang MD Work Phone: [facility] 01-20-2023 pneumococcal polysaccharide vaccine, 23 valent Casey Chang MD Work Phone: [facility] 01-20-2023 influenza virus vaccine, unspecified formulation Casey Chang MD Work Phone: [facility] 12-31-2021 diphtheria, tetanus toxoids and acellular pertussis vaccine Flakita Jose SUPERVISOR GRADING - CLASSROOM TECHNOLOGY TECHNICIAN Work Phone: [facility] 12-31-2021 Pneumococcal Conjuga te PCV20, Pf (Prevnar 20) Casey Chang MD Work Phone: [facility] 12-31-2021 Seasonal, quadrivale nt, recombinant, injectable influenza vaccine, preservative free Casey Chang MD Work Phone: [facility] 12-31-2021 zoster vaccine recombinant Casey Chang MD Work Phone: [facility] 12-31-2021 influenza virus vaccine, unspecified formulation Flakita Royalal SUPERVISOR GRADING - CLASSROOM TECHNOLOGY TECHNICIAN Work Phone: [facility] 09-30-2021 tetanus toxoid, redu talha diphtheria toxoid, and acellular pertussis vaccine, adsorbed Casey Chang MD Work Phone: [facility] 09-30-2021 zoster vaccine recombinant Casey Chang MD Work Phone: [facility] 06-30-2021 Covid-19, Pfizer Gra y Top, Do Not Dilute, (Age 12 Y+), Im, L Casey Chang MD Work Phone: [facility] 12-11-2020 influenza virus vaccine, unspecified formulation Casey Chang MD Work Phone: [facility] 12-11-2020 Pfizer SARS-CoV-2 Vaccination Casey Chang MD Work Phone: [facility] 10-11-2020 COVID-19 original vaccine, age 12+ yr, monovalent (PFIZER-BIONTECH - PURPLE TOP) Alma Rosa Lopez SUPERVISOR GRADING.CLASSROOM TECHNOLOGY 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 05-29-2020 COVID-19 original vaccine, age 12+ yr, monovalent (PFIZER-BIONTECH - PURPLE TOP) Alma Rosa Lopez SUPERVISOR GRADING.CLASSROOM TECHNOLOGY 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 05-09-2020 Pfizer SARS-CoV-2 Vaccination Casey Chang MD Work Phone: [facility] 05-08-2020 COVID-19 original vaccine, age 12+ yr, monovalent (PFIZER-BIONTECH - PURPLE TOP) Alma Rosa Lopez SUPERVISOR GRADING.CLASSROOM TECHNOLOGY 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 04-04-2016 TD(adult) unspecifie d formulation Casey Chang MD Work Phone: [facility] 04-04-2016 tetanus and diphther ia toxoids, adsorbed, preservative free, for adult use (2 Lf of tetanus toxoid and 2 Lf of diphtheria toxoid) [facility] 1960 pneumococcal conjuga te vaccine, 7 valent Casey Chang MD Work Phone: [facility] 1960 pneumococcal conjuga te vaccine, 7 valent [facility] Payers Date Payer Category Payer Self-pay [id number] 2022 Self-pay 2022 Private Health Insurance HUMANA HUMANA MEDICAID [facility] [id number] 2022-Present [address] [address] [place] [address] Medicaid [id number] 2022 Medicaid [id number] 2022 Medicaid HMO ADELINE HARDY ODM Member Subscriber Plan / Payer (Effective 2022-Present) Name: Dima Nice Relation to Subscriber: Self Name: Dima Nice Payer ID: [id number] ([facility]) Type: Medicaid HMO Address: [place] [id number] 2022 Private Health Insurance [id number] 2020 Unknown [id number] 1960 Unknown [id number] 1960 Unknown [id number] 1960 Unknown [id number] 1960 Unknown [id number] 1960 Unknown [id number] Unknown [id number] Unknown [id number] Unknown [id number] Unknown [id number] Social History Date Type Detail Facility Start: 12-21-2021 End: 05-20-2023 [facility] Start: 1960 Sex Assigned At Female S [facility] Start: 07-09-2020 Homeless [facility] Start: 12-25-2020 End: 07-12-2023 Tobacco smoking status NHIS Smokes tobacco daily [facility] Work Phone: Start: 12-25-1973 History of tobacco use Cigarette Smo ker [facility] Work Phone: Start: 12-25-2020 End: 03-22-2024 Cigarettes smoked current (pack per day) - Reported 1 [facility] Start: 12-25-2020 End: 03-21-2024 Tobacco use and exposure Smokeless tobacco non-user [facility] Work Phone: Start: 12-25-2020 End: 10-04-2023 Alcohol intake Current drinker of alcohol (finding) [facility] Start: 12-25-2020 Alcohol Comment couple times/week Cl [facility] Start: 1960 Sex Assigned At Not on file C [facility] Start: 12-31-2021 History SDOH Financial 5 [facility] Start: 12-31-2021 History SDOH Food Worry 1 [facility] Start: 12-31-2021 History SDOH Transpo rt Med 2 [facility] Start: 02-23-2022 End: 03-19-2024 Exposure to SARS-CoV-2 (event) Not sure [facility] Start: 06-18-2022 End: 03-22-2024 Tobacco use panel [facility] Start: 07-17-2017 End: 01-09-2022 How hard is it for you to pay for the very basics like food, housing, medical care, and heating Not hard at all [facility] (I/We) worried wheth er (my/our) food would run out before (I/we) got money to buy more. Never true [facility] Start: 12-03-2021 Gender identity Identifies as female gender (finding) [facility] Start: 09-07-2022 Alcohol Comment couple glaases of wine few times a week [facility] History of tobacco use Pipe Smoker [facility] Start: 08-11-2023 Tobacco Comment 5/ day, jaida ne patches [facility] Start: 09-14-2021 Sex Female (finding) [facility] Start: 02-15-1980 Tobacco smoking stat us KYIS Occasional tobacco smoker [facility] Start: 03-21-2024 End: 10-17-2024 Alcoholic beverage intake Ex-drinker (finding) [facility] Has the [employer], or [employer] threatened to shut off services in your home in past 12Mo No [facility] Are you now , , , , never or living with a partner? [facility] How often to you hav e a drink containing alcohol? 2-4 times a month [facility] How many standard drinks containing alcohol do you have on a typical day? 1 or 2 [facility] How often do you hav e 6 or more drinks on 1 occasion? Never [facility] How hard is it for y ou to pay for the very basics like food, housing, medical care, and heating Not very hard [facility] Do you feel stress - tense, restless, nervous, or anxious, or unable to sleep at night because your mind is troubled all the time - these days [OSQ] Only a little [facility] Goals Date Patient Goal Desired Activity /State Mental Status Date Assessment Result Facility 05-20-2023 Cognitive function Level Of Cons ciousness Awake;Alert [facility] Work Phone: 12-21-2021 Cognitive function Level Of Cons ciousness Awake;Alert;Appropriate [facility] Work Phone: Clinical Notes 03-03-2022 to 12-10-2024 Telephone Encounter - JAVIER Araujo CNP - 12/10/2024 7:22 AM EDTTelephone Encounter - JAVIER Araujo CNP - 12/10/2024 7:22 AM RHEA Dimas - 10/17/2024 12:45 PM EDT Note Date & Type Note Facility 12-10-2024 Telephone encounter Note No longer taking this dose. [facility] 12-10-2024 Miscellaneous Notes No longer taking this dose. documented in this encounter [facility] 12-05-2024 Telephone encounter Note Rx sent. Follow up as scheduled. [facility] 12-05-2024 Miscellaneous Notes Rx sent. Follow up as scheduled. documented in this encounter [facility] 10-22-2024 Telephone encounter Note Reviewed chart. Refill appropriate. RX sent. [facility] 10-22-2024 Miscellaneous Notes Reviewed chart. Refill appropriate. RX sent. Prescription Request: LORazepam (Ativan) 0.5 MG tablet Last medication check: 01/20/23 Last physical exam: 03/22/24 Next scheduled appointment: 12/11/24 CSA on file (date): 12/14/23 Last date of refill on this medication 08/08/24 ( qty 60 refill 0) documented in this encounter [facility] 10-22-2024 Telephone encounter Note Prescription Request: LORazepam (Ativan) 0.5 MG tablet Last medication check: 01/20/23 Last physical exam: 03/22/24 Next scheduled appointment: 12/11/24 CSA on file (date): 12/14/23 Last date of refill on this medication 08/08/24 ( qty 60 refill 0) [facility] [employer] 10-17-2024 History of Present illness Narrative Subjective Dima Nice is a 64 y.o. female who presents for the following: Hidradenitis Suppurativa (Stable on Cosentyx. Patient due for Tspot. ) and Rosacea. Review of Systems: No other skin or systemic complaints other than what is documented elsewhere in the note. 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 Additional History Specialty Problems None Past Medical History: Dima Nice has no past medical history on file. Past Surgical History: Dima Nice has no past surgical history on file. Family History: Patient family history is not on file. Social History: Dima Nice reports that she has been smoking cigarettes. She does not have any smokeless tobacco history on file. No history on file for alcohol use and drug use. Allergies: Codeine Current Medications / CAM's: Current Medications[1] Objective Well appearing patient in no apparent distress; mood and affect are within normal limits. A focused skin examination was performed. All findings within normal limits unless otherwise noted below. Assessment/Plan Skin Exam 1. HIDRADENITIS SUPPURATIVA Left Axilla, Pelvis - Anterior, Right Axilla A few inflammatory papules, sinus tract formation, scarring. Continues to flare on Cosentyx, Reich III - Hidradenitis suppurativa is a chronic condition of clogged sweat glands that leads to inflammation of the skin in areas such as the groin, underarms, underneath the breasts, and in between the buttocks. It most commonly appears as multiple large nodules (solid, raised bumps), abscesses (red, swollen, warm, tender bumps or lumps with pus inside), and tunnels (holes in the skin that may contain fluid such as pus) in these areas. The nodules and abscesses gradually get larger and drain pus. After multiple bouts of this cycle of plugging, enlargement, and drainage, there may be tunnel formation under the skin and scarring. Pain is the most common symptom, but individuals with hidradenitis suppurativa also report itchy lesions, a foul odor coming from lesions when they drain pus, feeling tired, and joint pain. - While there is no cure for hidradenitis suppurativa, you can work with your medical professional to treat existing lesions and prevent new ones. - Make sure to wash any inflamed, draining areas of hidradenitis suppurativa with antibacterial soap, and then apply an antibiotic ointment (Neosporin) and clean bandages. If there is a large amount of drainage, change the gauze pads and dressings often. Warm compresses and ibuprofen (Advil, Motrin) can help reduce the swelling. Avoid wearing tight-fitting clothing to help prevent further irritation. - Weight loss may decrease lesions by decreasing skin folds and, thus, friction on the skin. Smoking should be avoided. Plan - Not doing well on Cosentyx, will start prior authorization for Bimzelx. - Will repeat Tspot. - Please call if you have any further questions or concerns. - Risks, benefits, and side effects discussed in office. This Visit - Follow Up In Dermatology - Established Patient - Follow Up In Dermatology - Established Patient - T-Spot TB - minocycline 50 mg capsule - Take 1 capsule (50 mg) by mouth 2 times a day. Existing Treatments - secukinumab (Cosentyx) 150 mg/mL self-injector pen - Inject 300mg subcutaneously at weeks 0, 1, 2, 3, and 4. - secukinumab (Cosentyx) 150 mg/mL self-injector pen - Inject 2 mL (300 mg) under the skin once monthly 2. ROSACEA Nose Mid face erythema with telangiectasias and scattered inflammatory papules. -Discussed nature of this chronic condition -Recommend gentle skin care habits including gentle cleansers, non-comedogenic physical/mineral based sunscreen daily. Avoid exfoliation, wind and extreme temperatures when possible. - Soolantra denied, will start minocycline 50 mg twice daily. Take as directed. - Risks, benefits, and side effects discussed. Patient understood and agrees with the plan. This Visit - minocycline 50 mg capsule - Take 1 capsule (50 mg) by mouth 2 times a day. Existing Treatments - ivermectin 1 % cream - Apply 1 Application topically once daily. 3. 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 Please call me if there are any changes or development of concerning symptoms (lesion/skin condition is changing, bleeding, enlarging, or worsening). [1] Current Outpatient Medications: albuterol 90 mcg/actuation inhaler, Inhale 2 puffs every 6 hours if needed., Disp: , Rfl: allopurinol (Zyloprim) 300 mg tablet, Take 0.5 tablets (150 mg) by mouth once daily., Disp: , Rfl: amLODIPine (Norvasc) 10 mg tablet, Take 1 tablet (10 mg) by mouth once daily., Disp: , Rfl: baclofen (Lioresal) 10 mg tablet, Take 1 tablet (10 mg) by mouth 3 times a day., Disp: , Rfl: budesonide-formoteroL (Symbicort) 80-4.5 mcg/actuation inhaler, Inhale 2 puffs twice a day., Disp: , Rfl: cholecalciferol (Vitamin D-3) 50,000 unit capsule, Take 1 capsule (50,000 Units) by mouth., Disp: , Rfl: citalopram (CeleXA) 40 mg tablet, Take 1 tablet (40 mg) by mouth once daily., Disp: , Rfl: clindamycin (Cleocin T) 1 % gel, APPLY THIN LAYER TOPICALLY TWICE DAILY, Disp: , Rfl: cyclobenzaprine (Flexeril) 10 mg tablet, Take 1 tablet (10 mg) by mouth every 8 hours if needed., Disp: , Rfl: fluticasone (Flonase) 50 mcg/actuation nasal spray, INSTILL 2 SPRAYS IN EACH NOSTRIL DAILY. SHAKE GENTLY. BEFORE FIRST USE, PRIME PUMP. AFTER USE, CLEAN TIP AND REPLACE CAP, Disp: , Rfl: HYDROcodone-acetaminophen (Bristol) 5-325 mg tablet, TAKE 1 TABLET BY MOUTH TWICE DAILY NEEDED FOR 7 DAYS, Disp: , Rfl: ivermectin 1 % cream, Apply 1 Application topically once daily., Disp: 45 g, Rfl: 9 lisinopril 30 mg tablet, Take 2 tablets (60 mg) by mouth once daily., Disp: , Rfl: LORazepam (Ativan) 0.5 mg tablet, Take 1 tablet (0.5 mg) by mouth 2 times a day as needed., Disp: , Rfl: meloxicam (Mobic) 15 mg tablet, Take 1 tablet (15 mg) by mouth once daily., Disp: , Rfl: minocycline 50 mg capsule, Take 1 capsule (50 mg) by mouth 2 times a day., Disp: 180 capsule, Rfl: 0 omeprazole (PriLOSEC) [address] capsule, TAKE 1 CAPSULE BY MOUTH IN THE MORNING AND 1 CAPSULE IN THE EVENING BEFORE MEALS, Disp: , Rfl: pravastatin (Pravachol) 40 mg tablet, Take 1 tablet (40 mg) by mouth once daily., Disp: , Rfl: rosuvastatin (Crestor) 40 mg tablet, Take 1 tablet (40 mg) by mouth once daily., Disp: , Rfl: secukinumab (Cosentyx) 150 mg/mL self-injector pen, Inject 300mg subcutaneously at weeks 0, 1, 2, 3, and 4., Disp: 10 mL, Rfl: 0 secukinumab (Cosentyx) 150 mg/mL self-injector pen, Inject 2 mL (300 mg) under the skin once monthly, Disp: 4 mL, Rfl: 11 traMADol (Ultram) 50 mg tablet, , Disp: , Rfl: documented in this encounter [facility] Work Phone: 10-17-2024 History of Present illness Narrative Images from the original note were not included. [facility] [address] [facility] [address] Dept: [phone] Dept Chief Complaint Patient presents with Follow-up Right Knee Subjective History of Present Illness: Dima Nice follows up today for right knee pain. States the injection she received at her last appointment was helpful and she is in less pain and can move around. She is requesting another injection today to get ahead of the pain before it get bad and is just staring to feel unstable. Since the last visit on 07/12/24, symptoms are improving, 100% better. Current symptoms are aching and sore. Still 50% better and wanting to avoid feeling as bad so is considering another injection or another treatment. She rates symptoms as a 0/10 at rest and a 7/10 at worst. 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 Respiratory: Breathing comfortably on room air. No respiratory distress. Skin: Warm, dry, intact. No visible rashes or erythema overlying area of focused exam. Physical Exam Musculoskeletal: Right knee: No swelling or deformity. Tenderness present over the medial joint line and lateral joint line. No MCL or LCL tenderness. No LCL laxity or MCL laxity. Instability Tests: Anterior drawer test negative. Posterior drawer test negative. Medial Ernestina test negative and lateral Ernestina test negative. External Notes No pertinent interval updates Labs No results found for: "HGBA1C" Lab Results Component Value Date CREATININE 0.82 03/22/2024 Imaging Images reviewed with patient today I have personally reviewed the images pertinent to the appointment today X-Ray Completed 07/12/24 STANDING AP VIEW BILATERAL KNEES RIGHT KNEE SERIES CLINICAL INDICATION: Pain Standing AP and PA flexed views of the bilateral knees were performed. Lateral and sunrise plain film views of the right knee were also obtained. COMPARISON: None FINDINGS: The standing AP and PA flexed views of the bilateral knees demonstrate mild degenerative spurring of the tibial spines bilaterally. No fracture or dislocation of the right knee is identified. There is no joint effusion on the lateral view. Soft tissues are unremarkable. IMPRESSION: No fracture or dislocation of the right knee is identified. Mild osteoarthritis of the bilateral knees. EMG/NCT No interval studies Procedure Procedure completed today, details below Procedure Note: We discussed risks and precautions including infection, bleeding, hypopigmentation, fat atrophy and a 1-2% chance of a steroid flare. Verbal and written consent was obtained. The right knee injection site was located, confirmed and marked, it was prepped in the usual fashion with betadine and isopropyl alcohol. 2 cc of Betamethasone (6mg/ml) and 4 cc of 1% lidocaine were placed in the, intra-articular, intracondylar space using a inferior lateral approach. The procedure was tolerated well. There were no complications with the injection. The injection site was bandaged. Assessment Diagnosis Plan 1. Primary osteoarthritis of right knee lidocaine (Xylocaine) 1 % injection 4 mL betamethasone acetate-betamethasone sodium phosphate (Celestone) injection 12 mg Ambulatory referral to Sports Medicine Plan We discussed osteoarthritis of the knee. We reviewed the spectrum of 1. Pills - everything from Tylenol, ibuprofen, Aleve, and pain medicines. We also discussed glucosamine/chondroitin and Tumeric. 2. Physical therapy - formal physical therapy and braces. And continued exercise at home. 3. Shots - corticosteroid, hyaluronic acid, and investigational injections. 4. Surgery - total joint replacement. When appropriate. Given the amount of improvement previously received with last injections we will repeat those today and initiate process for single dose hyaluronic acid injection. No follow-ups on file. Zhanna Guadarrama MD 10/17/2024 8:42 AM Please note that portions of this note may have been completed with voice recognition software. Documentation reviewed prior to signing but minor errors in manager system may have occurred. documented in this encounter [facility] 10-09-2024 Telephone encounter Note Prescription Request: Last medication check: 08/16/23 Last physical exam: 03/22/24 Next scheduled appointment: 10/16/24 Last date of refill on this medication 03/22/24 albuterol inhaler 18 g 3 refills Citalopram 90 and 1 refill 09/05/24 chlorathalidone 45 tablets no refill [facility] 10-09-2024 Miscellaneous Notes Prescription Request: Last medication check: 08/16/23 Last physical exam: 03/22/24 Next scheduled appointment: 10/16/24 Last date of refill on this medication 03/22/24 albuterol inhaler 18 g 3 refills Citalopram 90 and 1 refill 09/05/24 chlorathalidone 45 tablets no refill documented in this encounter [facility] 09-05-2024 Telephone encounter Note Prescription Request: Chlorthalidone 25mg Tablet Omeprazole 20mg Delayed-Release Capsule Last medication check: 01/20/23 Last physical exam: 03/22/24 Next scheduled appointment: 10/16/24 Last date of refill on this medication Chlorthalidone - 03/22/24 ( qty 45 refill 1) Omeprazole- 03/22/24 ( qty 90 refil 1) [facility] 09-05-2024 Miscellaneous Notes Prescription Request: Chlorthalidone 25mg Tablet Omeprazole 20mg Delayed-Release Capsule Last medication check: 01/20/23 Last physical exam: 03/22/24 Next scheduled appointment: 10/16/24 Last date of refill on this medication Chlorthalidone - 03/22/24 ( qty 45 refill 1) Omeprazole- 03/22/24 ( qty 90 refil 1) documented in this encounter [facility] 08-08-2024 Note Addended by: GAVINO ZUNIGA on: 08/08/2024 08:15 AM Modules accepted: Orders [facility] 08-08-2024 Note Addended by: GAVINO ZUNIGA on: 08/08/2024 08:15 AM Modules accepted: Orders [facility] 08-08-2024 Telephone encounter Note Rx sent. OARRS report reviewed with no discrepancies. CSA signed in November 2023. Follow up as scheduled. [facility] 08-08-2024 Miscellaneous Notes Addended by: GAVINO ZUNIGA on: 08/08/2024 08:15 AM Modules accepted: Orders Rx sent. OARRS report reviewed with no discrepancies. CSA signed in November 2023. Follow up as scheduled. Addended by: PEARL VIDALES on: 08/08/2024 07:54 AM Modules accepted: Orders [facility] Ativan 12/14/23 Medication name: LORazepam (Ativan) 0.5 MG tablet Medication dosage: 0.5 mg (Miligrams Monthly quantity needed: 60 How many day supply requestin days Medication route: oral (PO) Medication administration time(s): 2 times a day (BID) If taking medication PRN, reason for taking medication: N/A If this is a controlled substance do you receive this or any other controlled medication from any other doctor or facility: N/A Ordering provider: Gavino Zuniga Date of last office visit: 04/19/24 Date of next office visit: 09/17/24 Date of last refill: (see medication tab): 04/16/24 Updated/Validated preferred pharmacy: Yes Patient instructed to contact the pharmacy prior to picking up the medication: Yes documented in this encounter [facility] 08-08-2024 Note Addended by: PEARL SHERIDAN on: 08/08/2024 07:54 AM Modules accepted: Orders [facility] 08-08-2024 Note Addended by: PEARL SHERIDAN on: 08/08/2024 07:54 AM Modules accepted: Orders [facility] 08-08-2024 Telephone encounter Note CSA Ativan 12/14/23 [facility] 08-07-2024 Telephone encounter Note Medication name: LORazepam (Ativan) 0.5 MG tablet Medication dosage: 0.5 mg (Miligrams Monthly quantity needed: 60 How many day supply requestin days Medication route: oral (PO) Medication administration time(s): 2 times a day (BID) If taking medication PRN, reason for taking medication: N/A If this is a controlled substance do you receive this or any other controlled medication from any other doctor or facility: N/A Ordering provider: Gavino Zuniga Date of last office visit: 04/19/24 Date of next office visit: 09/17/24 Date of last refill: (see medication tab): 04/16/24 Updated/Validated preferred pharmacy: Yes Patient instructed to contact the pharmacy prior to picking up the medication: Yes [facility] 08-07-2024 Miscellaneous Notes Medication name: LORazepam (Ativan) 0.5 MG tablet Medication dosage: 0.5 mg (Miligrams Monthly quantity needed: 60 How many day supply requestin days Medication route: oral (PO) Medication administration time(s): 2 times a day (BID) If taking medication PRN, reason for taking medication: N/A If this is a controlled substance do you receive this or any other controlled medication from any other doctor or facility: N/A Ordering provider: Gavino Zuniga Date of last office visit: 04/19/24 Date of next office visit: 09/17/24 Date of last refill: (see medication tab): 04/16/24 Updated/Validated preferred pharmacy: Yes Patient instructed to contact the pharmacy prior to picking up the medication: Yes documented in this encounter [facility] 07-25-2024 Telephone encounter Note Patient had a Tdap 09/2021, notified patient of this. [facility] 07-25-2024 Telephone encounter Note Notified, no further questions. [facility] 07-25-2024 Miscellaneous Notes Patient had a Tdap 09/2021, notified patient of this. Notified, no further questions. Name of caller: Dima Contact phone number: [phone] Relationship to Patient: patient Provider: Dr Chang Practice: [facility] Chief Complaint/Reason for Call: Dima called asking if there is record of her having a tetanus shot in the office ever. Please advise. Best time of day caller can be reached: any Patient advised that office/PCP has 24-48 business hours to return their call: Yes documented in this encounter [facility] 07-25-2024 Telephone encounter Note Name of caller: Dima Contact phone number: [phone] Relationship to Patient: patient Provider: Dr Chang Practice: [facility] Chief Complaint/Reason for Call: Dima called asking if there is record of her having a tetanus shot in the office ever. Please advise. Best time of day caller can be reached: any Patient advised that office/PCP has 24-48 business hours to return their call: Yes [facility] 07-23-2024 Telephone encounter Note Prescription Request: Rosuvastatin Calcium 40mg Tablet Last medication check: 01/20/23 Last physical exam: 03/22/24 Next scheduled appointment: 09/17/24 Last date of refill on this medication 03/22/24 ( qty 0- refill 1) [facility] 07-23-2024 Miscellaneous Notes Prescription Request: Rosuvastatin Calcium 40mg Tablet Last medication check: 01/20/23 Last physical exam: 03/22/24 Next scheduled appointment: 09/17/24 Last date of refill on this medication 03/22/24 ( qty 0- refill 1) documented in this encounter [facility] 07-12-2024 History of Present illness Narrative Images from the original note were not included. [facility] [address] [place] [address] [address] [facility] [id number] Dept: [phone] Dept Chief Complaint Patient presents with New Patient Right Knee Pain Subjective History of Present Illness: Dima Nice is a 64 y.o. female who presents today for evaluation of right knee pain. Mentions she has Lyme disease and arthritis. Was helping her dad do a project and kept getting up and down from a kneeling position and did something to her knee about 4 months ago. Pain is mostly located around patella. Would be interested in cortisone for pain relief today. Location: generalized Onset: 4 months Injury: no Quality: aching, throbbing, pressure, sharp, shooting, and stabbing Mechanical symptoms: instability and cracks Radiation of symptoms: no Severity: 1/10 at rest and 10/10 at worst Exacerbating factor(s): repetitive use, prolonged standing, rising from a seated position, climbing/descending stairs, getting in/out of a car, first steps out of bed, and explosive movements (running, cutting, jumping) Relieving factor(s): rest Timing: all day Imaging to date: Today's Visit 07/12/2024 A cortical defect along the most medial aspect of the femoral condyle, lateral OCD versus osteophyte Treatment to date: PT/OT/HEP: no Ice: no Heat: no Medications: Tylenol: yes, helpful NSAIDs: yes, Ibuprofen/Motrin/Advil and Aleve/Naproxen, helpful Oral steroids: no Muscle relaxants: no Nerve medications: no Targeted injections: none Assistive devices: brace Prior surgery: yes - 2023 Spinal Sx 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 Respiratory: Breathing comfortably on room air. No respiratory distress. Skin: Warm, dry, intact. No visible rashes or erythema overlying area of focused exam. Physical Exam Musculoskeletal: Right knee: No swelling, deformity, effusion, erythema, ecchymosis or bony tenderness. Normal range of motion. Tenderness present over the medial joint line. No lateral joint line tenderness. No LCL laxity, MCL laxity, ACL laxity or PCL laxity. Normal patellar mobility. Instability Tests: Anterior drawer test negative. Posterior drawer test negative. Anterior Yang test negative. Medial Ernestina test negative and lateral Ernestina test negative. External Notes No pertinent interval updates Labs No results found for: "HGBA1C" Lab Results Component Value Date CREATININE 0.82 03/22/2024 Imaging Images reviewed with patient today I have personally reviewed the images pertinent to the appointment today EMG/NCT No interval studies Procedure Procedure completed today, details below Procedure Note: We discussed risks and precautions including infection, bleeding, hypopigmentation, fat atrophy and a 1-2% chance of a steroid flare. Verbal and written consent was obtained. The right knee injection site was located, confirmed and marked, it was prepped in the usual fashion with betadine and isopropyl alcohol. 2 cc of Betamethasone (6mg/ml) and 4 cc of 1% lidocaine were placed in the, intra-articular, intracondylar space using a inferior lateral approach. The procedure was tolerated well. There were no complications with the injection. The injection site was bandaged. Assessment Diagnosis Plan 1. Primary osteoarthritis of right knee lidocaine (Xylocaine) 1 % injection 4 mL betamethasone acetate-betamethasone sodium phosphate (Celestone) injection 12 mg 2. Acute pain of right knee XR knees anteroposterior standing bilateral XR knee 1 or 2 views right Plan We discussed osteoarthritis of the knee. We reviewed the spectrum of 1. Pills - everything from Tylenol, ibuprofen, Aleve, and pain medicines. We also discussed glucosamine/chondroitin combinations and how to perform a glucosamine trial. Additionally Tumeric can be supplemented, it is likely similar to ibuprofen and is generally safe for most people to take. Glucosamine Trial: As a treatment for arthritis, we discussed a trial of glucosamine, [id number]. We talked about using a good quality glucosamine source as the testing agent. Cosamin DS or Osteo-Bio Flex would be two of the options to pick from. Write down, using as many numbers as possible, a description of when the arthritis is symptomatic ( i.e. I can go up 1 flight of stairs before my knee hurts, I can sleep 4 hours before my knee wakes me, my knee begins to hurt me at 2 p.m. on a work day ). This documentation will be kept for comparison in 3-4 months. Take the glucosamine twice daily for 3-4 months. Comparing your symptoms sheet, and see if there is improvement. Glucosamine will work in approximately 60-65% of people. If it is helping continue the supplementation. If there is no improvement you can stop the glucosamine. 2. Physical therapy - formal physical therapy and braces. The benefits of strengthening, endurance, flexibility, balancing, and proprioception. The combination of all of these to decrease joint pain. 3. Shots - corticosteroid, hyaluronic acid, and investigational injections. We discussed the episodic nature, and Band-Aid nature of cortisone. No more frequent than every 3-4 months, the potential for cortisone to soften articular cartilage with repetitive use. And the use as a bridge agent. We also discussed hyaluronic acid injection series and the potential benefits of lubrication, nourishing the cartilage, re-booting the knee capsule and the potential for 1 year of improvement. 4. Surgery - cleanup procedures as well as total joint replacement. We discussed the need to progress through conservative measures before this is a viable option. All treatment options were discussed. All questions were answered. We will continue with prn oral medication, a glucosamine trial and a HEP. We will recheck as outlined to alter therapy as needed. No follow-ups on file. Zhanna Guadarrama MD 07/12/2024 10:25 AM Please note that portions of this note may have been completed with voice recognition software. Documentation reviewed prior to signing but minor errors in manager system may have occurred. documented in this encounter [facility] 07-12-2024 Instructions Zhanna Guadarrama MD - 07/12/2024 10:00 AM EDT Images from the original note were not included. We discussed osteoarthritis of the knee. We reviewed the spectrum of 1. Pills - everything from Tylenol, ibuprofen, Aleve, and pain medicines. We also discussed glucosamine/chondroitin combinations and how to perform a glucosamine trial. Additionally Tumeric can be supplemented, it is likely similar to ibuprofen and is generally safe for most people to take. Glucosamine Trial: As a treatment for arthritis, we discussed a trial of glucosamine, [id number]. We talked about using a good quality glucosamine source as the testing agent. Cosamin DS or Osteo-Bio Flex would be two of the options to pick from. For shellfish sensitive people, there is a shellfish free version of glucosamine usually marked as shellfish free or vegetarian. Write down, using as many numbers as possible, a description of when the arthritis is symptomatic ( i.e. I can go up 1 flight of stairs before my knee hurts, I can sleep 4 hours before my knee wakes me, my knee begins to hurt me at 2 p.m. on a work day ). This documentation will be kept for comparison in 3-4 months. Take the glucosamine twice daily for 3-4 months. Comparing your symptoms sheet, and see if there is improvement. Glucosamine will work in approximately 60-65% of people. If it is helping continue the supplementation. If there is no improvement you can stop the glucosamine. 2. Physical therapy - formal physical therapy and braces. The benefits of strengthening, endurance, flexibility, balancing, and proprioception. The combination of all of these to decrease joint pain. 3. Shots - corticosteroid, hyaluronic acid, and investigational injections. We discussed the episodic nature, and Band-Aid nature of cortisone. No more frequent than every 3-4 months, the potential for cortisone to soften articular cartilage with repetitive use. And the use as a bridge agent. We also discussed hyaluronic acid injection series and the potential benefits of lubrication, nourishing the cartilage, re-booting the knee capsule and the potential for 1 year of improvement. 4. Surgery - cleanup procedures as well as total joint replacement. We discussed the need to progress through conservative measures before this is a viable option. All treatment options were discussed. All questions were answered. We will continue with prn oral medication, a glucosamine trial and a HEP. We will recheck as outlined to alter therapy as needed. Here are some examples of typical rehabilitation exercises for your condition. Start each exercise slowly. Ease off the exercise if you start to have pain. Your doctor or physical therapist will tell you when you can start these exercises and which ones will work best for you. How to do the exercise Gluteus Medius Strengthening Stand facing a wall with your hands on the wall at about chest level (if needed). Keeping the toe of your affected leg straight, kick that leg to the side and slightly behind you, toe turned in. (The above picture is the wrong way) Hold for 3-5 seconds. Relax, and lower your leg back to the starting position. Repeat 8 to 12 times. As you get stronger, secure a band as resistance or tie it loosly around your ankles. Repeat steps 1-5. Quadriceps stretch If you are not steady on your feet, hold on to a chair, counter, or wall. Bend your affected leg, and reach behind you to grab the front of your foot or ankle with the hand on the same side. For example, if you are stretching your right leg, use your right hand. Keeping your knees next to each other, pull your foot toward your buttock until you feel a gentle stretch across the front of your hip and down the front of your thigh. Your knee should be pointed directly to the ground, and not out to the side. Hold the stretch for at least 30 to 60 seconds. Repeat 2 to 4 times. Quad sets, Short arcs Sit with your affected leg straight and supported on the floor or a firm bed. Place a small, rolled-up towel under your affected knee. Your other leg should be bent, with that foot flat on the floor. Tighten the thigh muscles of your affected leg by pressing the back of your knee down into the towel. Hold for about 6 seconds, then rest for up to 10 seconds. Repeat 8 to 12 times. Straight-leg raises to the front, Quad "T"'s Lie on your back with your good knee bent so that your foot rests flat on the floor. Your affected leg should be straight. Make sure that your low back has a normal curve. You should be able to slip your hand in between the floor and the small of your back, with your palm touching the floor and your back touching the back of your hand. Tighten the thigh muscles in your affected leg by pressing the back of your knee flat down to the floor. Hold your knee straight. Keeping the thigh muscles tight and your leg straight, lift your affected leg up so that your heel is about 12 inches off the floor. Hold for about 6 seconds, then lower your leg slowly. Rest for up to 10 seconds between repetitions. Repeat 8 to 12 times. Increase the quality of the exercise by raising the leg and moving you foot left and right as if to write the capital "T". Come back to the middle and lower back to the rest position. Straight-leg raises to the outside Lie on your side, with your injured leg on top. Tighten the front thigh muscles of your injured leg to keep your knee straight. Keep your hip and your leg straight in line with the rest of your body, and keep your knee pointing forward. Do not drop your hip back. Lift your injured leg straight up toward the ceiling, about 12 inches off the floor. Hold for about 6 seconds, then slowly lower your leg. Do 8 to 12 repetitions. To add difficulty, start by raising into a side plank, raise upper the leg, hold, lower upper the leg, then release the plank. Repeat 8 to 12 times. Progression Start on the progression listed below where you feel comfortable. When the last three reps are perfect form, then increase one step. When you add a set, don't add to the total reps. Repetitions Sets 4 2 6 2 8 2 10 2 12 2 15 2 10 3 12 3 15 3 documented in this encounter [facility] 07-10-2024 Telephone encounter Note Prescription Request: Last medication check: 05/26/23 Last physical exam: 03/22/24 Next scheduled appointment: 09/17/24 Last date of refill on this medication 05/23/24 90 tablets no refill [facility] 07-10-2024 Miscellaneous Notes Prescription Request: Last medication check: 05/26/23 Last physical exam: 03/22/24 Next scheduled appointment: 09/17/24 Last date of refill on this medication 05/23/24 90 tablets no refill documented in this encounter [facility] 06-04-2024 Telephone encounter Note Noted. Will see as scheduled. [facility] [employer] Work Phone: 06-04-2024 Miscellaneous Notes Noted. Will see as scheduled. Sched for 06/19/[address] Chang at 1:45 tried to call pt but phone would not go through S: Patient called the clinical access center with complaint of knee pain B: Called with complaint of knee pain and swelling A: Knee pain and swelling that has been worsening over the past few days [place] but is asking if the office does cortisone injections. . She is asking to be scheduled the beginning of june if the office still does injections, otherwise she is requesting a referral to ortho. R:She can be reached at [phone] Please leave a message if she does not answer, her cell service is spotty in [place]. Patient instructed to call back with worsening symptoms, concerns or questions. Reason for Disposition Swollen knee joint (no fever or redness) Protocols used: [id number] [id number] documented in this encounter [facility] 06-01-2024 Telephone encounter Note Sched for 06/19/[address] Chang at 1:45 tried to call pt but phone would not go through [facility] 06-01-2024 Telephone encounter Note S: Patient called the clinical access center with complaint of knee pain B: Called with complaint of knee pain and swelling A: Knee pain and swelling that has been worsening over the past few days She [place] currently out of [place] but is asking if the office does cortisone injections. . She is asking to be scheduled the beginning of june if the office still does injections, otherwise she is requesting a referral to ortho. R:She can be reached at [phone] Please leave a message if she does not answer, her cell service is spotty in [place]. Patient instructed to call back with worsening symptoms, concerns or questions. Reason for Disposition Swollen knee joint (no fever or redness) Protocols used: Knee [id number] [facility] 05-22-2024 Telephone encounter Note Prescription Request: Baclofen 10mg Tablet Last medication check: 03/22/24 Last physical exam: 03/22/24 Next scheduled appointment: 09/17/24 Last date of refill on this medication 04/25/24 (90 tabs no refill) [facility] 05-22-2024 Miscellaneous Notes Prescription Request: Baclofen 10mg Tablet Last medication check: 03/22/24 Last physical exam: 03/22/24 Next scheduled appointment: 09/17/24 Last date of refill on this medication 04/25/24 (90 tabs no refill) documented in this encounter [facility] 05-11-2024 Telephone encounter Note Called patient, notified. [facility] 05-11-2024 Miscellaneous Notes Called patient, notified. Prescription for Z-Alex sent she should also get Mucinex to take along with that. That is OTC. S: Patient spoke with [facility] nurse regarding cough, no shortness of breath Provider: Dr. Chang Practice Name: [facility] B: Onset of symptoms/concern 10 days A: Patient states she is having "copious" amounts of phlegm from coughing that started about 10 days ago. She states she has congestion in sinuses and feels "pressure in ears and face." She states she will be moving next weekend for 6 months for a big project where she is cleaning and flipping a house and concerned she wont be better by then. States this started as a cold about 10 days ago and states it went right into coughing. Denies trying cough medicine. States "I think I need something to get the phlegm up and out." Patient states she has not taken any medications other than the ones prescribed to her. Has been using her inhaler more often with relief. Denies difficulty breathing, chest pain. R: Home care advice reviewed with patient. States she will try home care advice. No appointment available in office today with Dr. Chang. Declines POD scheduling as she requests to only see Dr. Chang in the office. Advised there are not appointments available and urgent care would be a good option for her. Patient agrees to be evaluated in urgent care. Patient verbalizes understanding of care advice. No further needs at this time. Patient instructed to call back with new or worsening symptoms. Reason for Disposition SEVERE coughing spells (e.g., whooping sound after coughing, vomiting after coughing) Protocols used: [id number] documented in this encounter [facility] 05-10-2024 Telephone encounter Note Prescription for Z-Alex sent she should also get Mucinex to take along with that. That is OTC. [facility] 05-10-2024 Telephone encounter Note S: Patient spoke with [facility] nurse regarding cough, no shortness of breath Provider: Dr. Chang Practice Name: [facility] B: Onset of symptoms/concern 10 days A: Patient states she is having "copious" amounts of phlegm from coughing that started about 10 days ago. She states she has congestion in sinuses and feels "pressure in ears and face." She states she will be moving next weekend for 6 months for a big project where she is cleaning and flipping a house and concerned she wont be better by then. States this started as a cold about 10 days ago and states it went right into coughing. Denies trying cough medicine. States "I think I need something to get the phlegm up and out." Patient states she has not taken any medications other than the ones prescribed to her. Has been using her inhaler more often with relief. Denies difficulty breathing, chest pain. R: Home care advice reviewed with patient. States she will try home care advice. No appointment available in office today with Dr. Chang. Declines POD scheduling as she requests to only see Dr. Chang in the office. Advised there are not appointments available and urgent care would be a good option for her. Patient agrees to be evaluated in urgent care. Patient verbalizes understanding of care advice. No further needs at this time. Patient instructed to call back with new or worsening symptoms. Reason for Disposition SEVERE coughing spells (e.g., whooping sound after coughing, vomiting after coughing) Protocols used: [id number] [facility] 04-25-2024 Telephone encounter Note Prescription Request: Last medication check: 08-16-23 Last physical exam: 04-11-24 Next scheduled appointment: 09-17-24 Last date of refill on this medication 03-22-24 [facility] 04-25-2024 Miscellaneous Notes Prescription Request: Last medication check: 08-16-23 Last physical exam: 04-11-24 Next scheduled appointment: 09-17-24 Last date of refill on this medication 03-22-24 documented in this encounter [facility] 03-23-2024 Telephone encounter Note Notified, scheduled, lab order pended. ----- Message from Casey Chang MD sent at 03/23/2024 8:33 AM EST ----- Blood sugar and chemistry are normal. Cholesterol is excellent. Vitamin D level is too high, she needs to stop her weekly vitamin D and go to a once a day vitamin D tablet which is [id number] at 2000 units and recheck in 4 weeks. Uric acid is normal. [facility] 03-23-2024 Miscellaneous Notes Notified, scheduled, lab order pended. ----- Message from Casey Chang MD sent at 03/23/2024 8:33 AM EST ----- Blood sugar and chemistry are normal. Cholesterol is excellent. Vitamin D level is too high, she needs to stop her weekly vitamin D and go to a once a day vitamin D tablet which is [id number] at 2000 units and recheck in 4 weeks. Uric acid is normal. documented in this encounter [facility] 03-22-2024 Evaluation + Plan note Associated Problem(s): Muscle spasms of both lower extremities We discussed different treatments that may help with muscle spasms which include increasing her calcium, drinking pickle juice, using baking soda in water. She also can take her baclofen every night where she goes to bed. [facility] 03-22-2024 Miscellaneous Notes Associated Problem(s): Muscle spasms of both lower extremities We discussed different treatments that may help with muscle spasms which include increasing her calcium, drinking pickle juice, using baking soda in water. She also can take her baclofen every night where she goes to bed. Associated Problem(s): Idiopathic 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 Controlled, continue allopurinol 150 mg daily Associated Problem(s): Hypercholesterolemia Controlled, continue rosuvastatin 40 mg daily Associated Problem(s): Depression Remission, continue Celexa but will decrease it to 20 mg per patient's request Associated Problem(s): Anxiety Remission, continue Celexa but will decrease it to 20 mg per patient's request Associated Problem(s): Vitamin D deficiency Controlled, continue cholecalciferol 1.25 mg 50,000 units every 7 days Associated Problem(s): Hypertension Controlled, patient has stopped her lisinopril she continues to take chlorthalidone every other day. Associated Problem(s): Asthma Stable, continue Symbicort 80-4.5 daily and albuterol as needed documented in this encounter [facility] [employer] 03-22-2024 Evaluation + Plan note Associated Problem(s): Idiopathic 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 Controlled, continue allopurinol 150 mg daily [facility] [employer] 03-22-2024 Evaluation + Plan note Associated Problem(s): Hypercholesterolemia Controlled, continue rosuvastatin 40 mg daily [facility] [employer] 03-22-2024 Evaluation + Plan note Associated Problem(s): Depression Remission, continue Celexa but will decrease it to 20 mg per patient's request [facility] [employer] 03-22-2024 Evaluation + Plan note Associated Problem(s): Anxiety Remission, continue Celexa but will decrease it to 20 mg per patient's request [facility] [employer] 03-22-2024 Evaluation + Plan note Associated Problem(s): Vitamin D deficiency Controlled, continue cholecalciferol 1.25 mg 50,000 units every 7 days [facility] [employer] 03-22-2024 Evaluation + Plan note Associated Problem(s): Hypertension Controlled, patient has stopped her lisinopril she continues to take chlorthalidone every other day. [facility] [employer] 03-22-2024 Evaluation + Plan note Associated Problem(s): Asthma Stable, continue Symbicort 80-4.5 daily and albuterol as needed [facility] [employer] 03-22-2024 History of Present illness Narrative Patient verified by last name and date of . Images from the original note were not included. 03/22/2024 Dima Nice (: 1960) is a 63 y.o. female , Established patient, here for evaluation of the following chief complaint(s): Annual Exam, Blood Work, Health Maintenance (Pt refuse- hiv screen, colonoscopy, lung cancer screen, mammogram, 7th covid vaccine/Flu vaccine- agree), and Medication Problem (Pt has stopped lisinopril due to weight being down 30lbs and bp seems to be good without it /Pt is taking baclofen due to muscle spasms in foot and it is not helping- she wonders if she talks to you about this or to the spine surgeon?) ASSESSMENT/PLAN: 1. Annual physical exam 2. Mild intermittent asthma without complication Assessment & Plan: Stable, continue Symbicort 80-4.5 daily and albuterol as needed 3. Primary hypertension Assessment & Plan: Controlled, patient has stopped her lisinopril she continues to take chlorthalidone every other day. 4. Vitamin D deficiency Assessment & Plan: Controlled, continue cholecalciferol 1.25 mg 50,000 units every 7 days Orders: - Vitamin D Deficiency Screening (Vit D 25) 5. Anxiety Assessment & Plan: Remission, continue Celexa but will decrease it to 20 mg per patient's request 6. Major depressive disorder in partial remission, unspecified whether recurrent (HCC) Assessment & Plan: Remission, continue Celexa but will decrease it to 20 mg per patient's request 7. Idiopathic 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 Assessment & Plan: Controlled, continue allopurinol 150 mg daily Orders: - Uric acid 8. Hypercholesterolemia Assessment & Plan: Controlled, continue rosuvastatin 40 mg daily Orders: - Lipid panel 9. Screening for diabetes mellitus - Comprehensive metabolic panel 10. Screening for colon cancer - Cologuard colon cancer screening 11. Muscle spasms of both lower extremities Assessment & Plan: We discussed different treatments that may help with muscle spasms which include increasing her calcium, drinking pickle juice, using baking soda in water. She also can take her baclofen every night where she goes to bed. Follow up in about 6 months (around 09/19/2024). SUBJECTIVE/OBJECTIVE: DELPHINE Goldman comes in today for an annual exam, she has a couple questions 1 is that she is having muscle spasms or her toes are curling underneath her feet and she says this is happening quite frequently especially at night and she is wondering if there is something that she can do. She said that this all started after she had her back surgery and she says after her back surgery she was unable to walk for a while but through physical therapy that has resolved but now she is getting the spasms. She also has stopped taking her lisinopril because her blood pressure was getting low she actually had an episode where she had syncope, she was told to go to the emergency room 3 days later when she called the call center so instead she stopped her lisinopril and her blood pressure looks good. She says she is monitoring it at home and she continues to get good numbers. She also here for follow-up on her gout which is controlled her hypercholesterolemia which is controlled and she has a history of anxiety and depression and she says those are well-controlled on her current dose of citalopram and she wants to cut that in half and go to 20 so we will do that. Review of Systems Constitutional: Negative for chills and fever. Respiratory: Negative for shortness of breath. Cardiovascular: Negative for chest pain and palpitations. Gastrointestinal: Negative for abdominal pain, blood in stool, constipation and diarrhea. Genitourinary: Negative for dysuria, frequency, hematuria and urgency. Neurological: Negative for weakness and numbness. Psychiatric/Behavioral: Negative for dysphoric mood. The patient is not nervous/anxious. Vitals: 03/22/24 0817 BP: 116/75 Pulse: 90 SpO2: 94% Weight: 251 lb 9.6 oz (114 kg) Height: 5' 3" (1.6 m) Physical Exam Vitals and nursing note reviewed. Constitutional: General: She is not in acute distress. Appearance: Normal appearance. HENT: Head: Normocephalic. Right Ear: Tympanic membrane, ear canal and external ear normal. Left Ear: Tympanic membrane, ear canal and external ear normal. Mouth/Throat: Mouth: Mucous membranes are moist. Pharynx: Oropharynx is clear. Eyes: Extraocular Movements: Extraocular movements intact. Pupils: Pupils are equal, round, and reactive to light. Neck: Thyroid: No thyromegaly. Vascular: No carotid bruit. Cardiovascular: Rate and Rhythm: Normal rate and regular rhythm. Heart sounds: Normal heart sounds. No murmur heard. Pulmonary: Effort: Pulmonary effort is normal. Breath sounds: Normal breath sounds. Abdominal: General: Bowel sounds are normal. Palpations: Abdomen is soft. Musculoskeletal: General: Normal range of motion. Cervical back: Normal range of motion. Lymphadenopathy: Cervical: No cervical adenopathy. Skin: General: Skin is warm and dry. Neurological: General: No focal deficit present. Mental Status: She is alert and oriented to person, place, and time. Psychiatric: Mood and Affect: Mood normal. An electronic signature was used to authenticate this note. Casey Chang MD 03/22/2024 8:53 AM Patient was identified by name and Date Of . After obtaining informed consent, Immunization(s) were ordered by provider. The patient and or Family/Guardian was instructed on the benefits and risks related to the vaccine or toxoid. Information given to the patient and or Family/Guardian with signs and symptoms of adverse effects and when to seek medical attention. Site was cleansed with an alcohol swab, immunization(s) were given, and bandage(s) were applied to injection site. Patient tolerated well, advised patient and or Family/Guardian to stay in the office 20 minutes after injection has been given to observe for any reaction. Immunization(s) was given by Soco Monreal MA. documented in this encounter [facility] 03-22-2024 Note Patient was identifi ed by name and Date Of . After obtaining informed consent, Immunization(s) were ordered by provider. The patient and or Family/Guardian was instructed on the benefits and risks related to the vaccine or toxoid. Information given to the patient and or Family/Guardian with signs and symptoms of adverse effects and when to seek medical attention. Site was cleansed with an alcohol swab, immunization(s) were given, and bandage(s) were applied to injection site. Patient tolerated well, advised patient and or Family/Guardian to stay in the office 20 minutes after injection has been given to observe for any reaction. Immunization(s) was given by Soco Monreal MA. [facility] 03-19-2024 History of Present illness Narrative Chelsie Nice is a 63 y.o. female who presents for the following: Hidradenitis Suppurativa (Pt states that ATB helped HS, but not the rosacea on the face. Clean and clear with salicylic acid.). Review of Systems: No other skin or systemic complaints other than what is documented elsewhere in the note. The following portions of the chart were reviewed this encounter and updated as appropriate: Tobacco Allergies Meds Problems Med Hx Surg Hx Fam Hx Skin Cancer History No skin cancer on file. Specialty Problems None Past Medical History: Dima Nice has no past medical history on file. Past Surgical History: Dima Nice has no past surgical history on file. Family History: Patient family history is not on file. Social History: Dima Nice reports that she has been smoking cigarettes. She does not have any smokeless tobacco history on file. No history on file for alcohol use and drug use. Allergies: Codeine Current Medications / CAM's: Current Outpatient Medications: clindamycin (Cleocin T) 1 % gel, APPLY THIN LAYER TOPICALLY TWICE DAILY, Disp: , Rfl: albuterol 90 mcg/actuation inhaler, Inhale 2 puffs every 6 hours if needed., Disp: , Rfl: allopurinol (Zyloprim) 300 mg tablet, Take 0.5 tablets (150 mg) by mouth once daily., Disp: , Rfl: amLODIPine (Norvasc) 10 mg tablet, Take 1 tablet (10 mg) by mouth once daily., Disp: , Rfl: baclofen (Lioresal) 10 mg tablet, Take 1 tablet (10 mg) by mouth 3 times a day., Disp: , Rfl: budesonide-formoteroL (Symbicort) 80-4.5 mcg/actuation inhaler, Inhale 2 puffs twice a day., Disp: , Rfl: cholecalciferol (Vitamin D-3) 50,000 unit capsule, Take 1 capsule (50,000 Units) by mouth., Disp: , Rfl: citalopram (CeleXA) 40 mg tablet, Take 1 tablet (40 mg) by mouth once daily., Disp: , Rfl: cyclobenzaprine (Flexeril) 10 mg tablet, Take 1 tablet (10 mg) by mouth every 8 hours if needed., Disp: , Rfl: doxycycline (Monodox) 50 mg capsule, Take 1 capsule (50 mg) by mouth 2 times a day. Take with at least 8 ounces (large glass) of water, do not lie down for 30 minutes after, Disp: 60 capsule, Rfl: 1 fluticasone (Flonase) 50 mcg/actuation nasal spray, INSTILL 2 SPRAYS IN EACH NOSTRIL DAILY. SHAKE GENTLY. BEFORE FIRST USE, PRIME PUMP. AFTER USE, CLEAN TIP AND REPLACE CAP, Disp: , Rfl: HYDROcodone-acetaminophen (Bristol) 5-325 mg tablet, TAKE 1 TABLET BY MOUTH TWICE DAILY NEEDED FOR 7 DAYS, Disp: , Rfl: ivermectin 1 % cream, Apply 1 Application topically once daily., Disp: 45 g, Rfl: 9 lisinopril 30 mg tablet, Take 2 tablets (60 mg) by mouth once daily., Disp: , Rfl: LORazepam (Ativan) 0.5 mg tablet, Take 1 tablet (0.5 mg) by mouth 2 times a day as needed., Disp: , Rfl: meloxicam (Mobic) 15 mg tablet, Take 1 tablet (15 mg) by mouth once daily., Disp: , Rfl: omeprazole (PriLOSEC) [address] capsule, TAKE 1 CAPSULE BY MOUTH IN THE MORNING AND 1 CAPSULE IN THE EVENING BEFORE MEALS, Disp: , Rfl: pravastatin (Pravachol) 40 mg tablet, Take 1 tablet (40 mg) by mouth once daily., Disp: , Rfl: rosuvastatin (Crestor) 40 mg tablet, Take 1 tablet (40 mg) by mouth once daily., Disp: , Rfl: secukinumab (Cosentyx) 150 mg/mL self-injector pen, Inject 300mg subcutaneously at weeks 0, 1, 2, 3, and 4., Disp: 10 mL, Rfl: 0 secukinumab (Cosentyx) 150 mg/mL self-injector pen, Inject 2 mL (300 mg) under the skin once monthly, Disp: 4 mL, Rfl: 11 traMADol (Ultram) 50 mg tablet, , Disp: , Rfl: Objective Well appearing patient in no apparent distress; mood and affect are within normal limits. A focused skin examination was performed. All findings within normal limits unless otherwise noted below. Assessment/Plan 1. Rosacea Nose Mid face erythema with telangiectasias and scattered inflammatory papules. -Discussed nature of this chronic condition -Recommend gentle skin care habits including gentle cleansers, non-comedogenic physical/mineral based sunscreen daily. Avoid exfoliation, wind and extreme temperatures when possible. - Start Soolantra, use as directed. - Risks, benefits, and side effects discussed. Patient understood and agrees with the plan. Related Medications ivermectin 1 % cream Apply 1 Application topically once daily. 2. Hidradenitis suppurativa Left Axilla, Pelvis - Anterior, Right Axilla A few inflammatory papules, sinus tract formation, scarring. No significant flares. - Hidradenitis suppurativa is a chronic condition of clogged sweat glands that leads to inflammation of the skin in areas such as the groin, underarms, underneath the breasts, and in between the buttocks. It most commonly appears as multiple large nodules (solid, raised bumps), abscesses (red, swollen, warm, tender bumps or lumps with pus inside), and tunnels (holes in the skin that may contain fluid such as pus) in these areas. The nodules and abscesses gradually get larger and drain pus. After multiple bouts of this cycle of plugging, enlargement, and drainage, there may be tunnel formation under the skin and scarring. Pain is the most common symptom, but individuals with hidradenitis suppurativa also report itchy lesions, a foul odor coming from lesions when they drain pus, feeling tired, and joint pain. - While there is no cure for hidradenitis suppurativa, you can work with your medical professional to treat existing lesions and prevent new ones. - Make sure to wash any inflamed, draining areas of hidradenitis suppurativa with antibacterial soap, and then apply an antibiotic ointment (Neosporin) and clean bandages. If there is a large amount of drainage, change the gauze pads and dressings often. Warm compresses and ibuprofen (Advil, Motrin) can help reduce the swelling. Avoid wearing tight-fitting clothing to help prevent further irritation. - Weight loss may decrease lesions by decreasing skin folds and, thus, friction on the skin. Smoking should be avoided. Plan - Continue Cosentyx as directed. Discussed side effects, will call if she experiences any. - Will repeat Tspot in July 2024. - Please call if you have any further questions or concerns. - Risks, benefits, and side effects discussed in office. Related Procedures Follow Up In Dermatology - Established Patient Related Medications secukinumab (Cosentyx) 150 mg/mL self-injector pen Inject 300mg subcutaneously at weeks 0, 1, 2, 3, and 4. secukinumab (Cosentyx) 150 mg/mL self-injector pen Inject 2 mL (300 mg) under the skin once monthly doxycycline (Monodox) 50 mg capsule Take 1 capsule (50 mg) by mouth 2 times a day. Take with at least 8 ounces (large glass) of water, do not lie down for 30 minutes after documented in this encounter [facility] Work Phone: 03-05-2024 Telephone encounter Note Noted. Thank you. [facility] 03-05-2024 Miscellaneous Notes Noted. Thank you. Spoke to Dima, she will go to ER. Okay to assist in scheduling an office visit for follow up, but agree with recommendation for ER evaluation in light of symptoms as they are able to do more thorough workup with imaging if needed. S: Pt calling [facility] after a syncopal event. B: She fainted on 03/02/2024. A: Pt fainted at post-office. 'Leaned against counter.' She had severe dizziness and then passed out briefly. Witnessed. Bruises on arms. No lacerations or abrasion. Pt still having dizziness. Severe at times. Needs to stop what she is doing. Pt is on low carb diet and lost 30 lbs in four months. No sugar for past three weeks. Pt has no current symptoms. She thinks her dose of Lisinopril 30 mg Two tablets once daily may be too high since losing weight. BP 117/78 a few days ago prior to taking morning medications. Pt denies chest pain, difficulty breathing or other symptoms. R: Advised pt to go to nearest ED now, and have another adult drive. Pt declined. Would like PCP appointment. Care advice given. Message sent to PCP's office. Advised 911 if she feels like she is going to pass out. Told her to call back with any other new/worsening symptoms. Pt verbalized understanding. Reason for Disposition [1] Fainted > 15 minutes ago AND [2] still feels weak or dizzy Protocols used: [id number] documented in this encounter [facility] 03-05-2024 Telephone encounter Note Spoke to Dima, she will go to ER. [facility] [facility] Note Okay to assist in sc heduling an office visit for follow up, but agree with recommendation for ER evaluation in light of symptoms as they are able to do more thorough workup with imaging if needed. [facility] 03-05-2024 Telephone encounter Note Okay to assist in scheduling an office visit for follow up, but agree with recommendation for ER evaluation in light of symptoms as they are able to do more thorough workup with imaging if needed. [facility] 03-05-2024 Telephone encounter Note S: Pt calling [facility] after a syncopal event. B: She fainted on 03/02/2024. A: Pt fainted at post-office. 'Leaned against counter.' She had severe dizziness and then passed out briefly. Witnessed. Bruises on arms. No lacerations or abrasion. Pt still having dizziness. Severe at times. Needs to stop what she is doing. Pt is on low carb diet and lost 30 lbs in four months. No sugar for past three weeks. Pt has no current symptoms. She thinks her dose of Lisinopril 30 mg Two tablets once daily may be too high since losing weight. BP 117/78 a few days ago prior to taking morning medications. Pt denies chest pain, difficulty breathing or other symptoms. R: Advised pt to go to nearest ED now, and have another adult drive. Pt declined. Would like PCP appointment. Care advice given. Message sent to PCP's office. Advised 911 if she feels like she is going to pass out. Told her to call back with any other new/worsening symptoms. Pt verbalized understanding. Reason for Disposition [1] Fainted > 15 minutes ago AND [2] still feels weak or dizzy Protocols used: [id number] [facility] [employer] 02-06-2024 Telephone encounter Note Prescription Request: Last medication check: 08/16/23 Last physical exam: 2021 Next scheduled appointment: none Last date of refill on this medication 03/16/23 16 g 5 refills [facility] [employer] 02-06-2024 Miscellaneous Notes Prescription Request: Last medication check: 08/16/23 Last physical exam: 2021 Next scheduled appointment: none Last date of refill on this medication 03/16/23 16 g 5 refills documented in this encounter [facility] [employer] 02-06-2024 Telephone encounter Note Prescription Request: Last medication check: 08/16/23 Last physical exam: 2021 Next scheduled appointment: none Last date of refill on this medication 08/11/23 90 day and no refill [facility] [employer] 02-06-2024 Miscellaneous Notes Prescription Request: Last medication check: 08/16/23 Last physical exam: 2021 Next scheduled appointment: none Last date of refill on this medication 08/11/23 90 day and no refill documented in this encounter [facility] 01-04-2024 Telephone encounter Note Prescription Request: Last medication check: 08/16/2023 Last physical exam:09/30/2021 Next scheduled appointment: none Last date of refill on this medication: Vit. D3- 07/28/2023 Allopurinol: 01/31/2023 Meloxicam: 09/05/2023 [facility] 01-04-2024 Miscellaneous Notes Prescription Request: Last medication check: 08/16/2023 Last physical exam:09/30/2021 Next scheduled appointment: none Last date of refill on this medication: Vit. D3- 07/28/2023 Allopurinol: 01/31/2023 Meloxicam: 09/05/2023 documented in this encounter [facility] 12-07-2023 History of Present illness Narrative Images from the original note were not included. [facility] AT [address] [place] [address] Dept: [phone] Dept PHYSICAL THERAPY RE-EVALUATION Patient Name: Dima Nice : 1960 Date of Service: 12/07/2023 Referring Provider: Rajinder Brownlee MD Visit #: [id number] Diagnosis: Radiculopathy, lumbar region Mechanism of injury: Pt had lumbar decompression surgery for spinal stenosis 6 weeks ago. Pt was able to walk 0.25 miles 3 times a day. Reports no back pain on R-side, but did report hip soreness. Pt is now getting L-sided back pain with radiating symptoms. Pt reports L-sided symptoms started 2 weeks ago. Pain located on L buttock, lateral hip and thigh, and posterior knee. L toes are numb. Described as sharp pain. Pt reports urinary urgency along with new L-sided back pain. This was similar to when she had R-sided pain. Pt did take Prednisone 2 weeks ago when L-sided pain started, but did not have relief. 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 This is the most work I have done in the last 5 years. Currently have pain and soreness. I think I have made a lot of progress since starting PT, so I want to try to manage with my exercises Pain: Current: 06/23 Best: 010 Worst: 06/23 Patient s Stated Goal: trial self management Outcome Measures Oswestry Low Back Disability: = 10% disability (initially 32/50, last RA) Objective BACK Gait: unremarkable Date Recorded: 10/05/2023 11/10/2023 12/07/2023 Trunk AROM Percentage Percentage Percentage Flexion (flex) 75 85 95 Extension (ext) 25* 100 75 Right side bending (SBR) 100 100 100 Left side bending (SBL) 25* 75* 100 Right rotation (rotR) 50 75 75 Left rotation (rotL) 50 75 100 10/05/2023 11/10/2023 12/07/2023 Myotomes/LE Strength Right Left Right Left Right Left Hip Flexion (L2-L3) 4+/5 4/5 4+/5 4+/5 5 5 Hip Abduction 4/5 3+/5* 4/5 4-/5 5 5 Hip Extension 4+/5 < 3/5 4+/5 3-/5 5 5 Hip IR 4+/5 4/5* 4+/5 4+/5 5 5 Hip ER 4+/5 4+/5 4+/5 4+/5 5 5 Knee Extension (L3-L4) 5/5 5/5 5 5 5 5 Knee Flexion (S2) 4+/5 4+/5 5 5 5 5 Ankle DF (L5) 5/5 4+/5 5 4+/5 5 5 Palpation: mild-moderate TTP of L piriformis, Assessment Patient demonstrates improvement in strength and range of motion since last assessment as well as decreased pain. Patient reports readiness to trial independent management of symptoms with HEP at this time. Patient is to be placed on 30 day hold to trial independent management, and the chart will be discharged after 30 days if does not turn. . Rehab Potential: Good Goals Active General/Ortho Patient will be independent with HEP. (Progressing) Start: 10/05/23 Expected End: 01/07/24 Patient will report decreased pain of < 4/10 at worst to be able to standing at least 10 minutes. (Progressing) Start: 10/05/23 Expected End: 01/07/24 Patient will increase lumbar ROM to 100% and pain-free to be able to roll in bed. (Progressing) Start: 10/05/23 Expected End: 01/07/24 Patient will increase B LE strength to 5/5 and pain-free to walk in the yard. (Completed) Start: 10/05/23 Expected End: 12/10/23 Resolved: 12/07/23 Functional Outcome Measure: Patient will improve JENNIFER Score to < 22/50 to demonstrate improved function. (Completed) Start: 10/05/23 Expected End: 11/05/23 Resolved: 11/10/23 Updated to: Functional Outcome Measure: Patient will improve JENNIFER Score to < 10/50 to demonstrate improved function. Update reason: Goal Met Functional Outcome Measure: Patient will improve JENNIFER Score to < 10/50 to demonstrate improved function. (Completed) Start: 11/10/23 Expected End: 12/10/23 Resolved: 12/07/23 Plan Patient to discharge with 30 day hold, frequency 1x a week for 4 weeks if patient returns to therapy within 30 days. Risks and benefits were discussed with the patient and/or family, and the patient and/or family participated with the plan of care and agrees. Treatment Therapeutic Activity Therapeutic Activity 1: Re-assessment: Re-assessed patients objective & subjective measures, reviewed patients POC, addressed goals and patients progress. Discussed D/C planning, discussed continuation of current HEP for maximum benefit and carryover to maintain pain free function. Patient with verbal acknowledgement and understanding. Therapeutic Activity 2: standing hip abd RTB x 3 Therapeutic Activity 3: Education on progressions of HEP Home Exercise Program: Progressed home exercise program Time Entry Total Treatment Time Start Time: 1120 Stop Time: 1137 Time Calculation (min): 17 min PT Therapeutic Procedures Time Entry Therapeutic Activity Time Entry: 17 Ileia N Jayson, PT documented in this encounter [facility] 11-30-2023 History of Present illness Narrative Images from the original note were not included. [facility] [place] [facility] TH[facility] AT [place] [address] [place] [address] Dept: [phone] Dept PHYSICAL THERAPY TREATMENT Patient Name: Dima Nice : 1960 Date of Service: 11/30/2023 Referring Provider: Rajinder Brownlee MD Visit #: 7 Diagnosis: Radiculopathy, lumbar region Mechanism of injury: Pt had lumbar decompression surgery for spinal stenosis 6 weeks ago. Pt was able to walk 0.25 miles 3 times a day. Reports no back pain on R-side, but did report hip soreness. Pt is now getting L-sided back pain with radiating symptoms. Pt reports L-sided symptoms started 2 weeks ago. Pain located on L buttock, lateral hip and thigh, and posterior knee. L toes are numb. Described as sharp pain. Pt reports urinary urgency along with new L-sided back pain. This was similar to when she had R-sided pain. Pt did take Prednisone 2 weeks ago when L-sided pain started, but did not have relief. Patient Preferences: Dima Precautions/Red Flags: None Subjective I need to be able to get on my hands and knees and I want to get my strength improved. I have been able to get really active, but lately I have spent a lot of a time in the car to travel so that has limited HEP compliance. I can tell that I need to do my exercise Compliance with HEP: no Objective Objective measurements not taken today. Treatment Therapeutic Exercise # of Activities: 10 Therapeutic Exercise Activity 1: Supine strength Activity 1 Comment: Bridge 2x15, Tabletop 10"x10 Therapeutic Exercise Activity 6: Birddogs with LE only, UE only. Activity 6 Comment: 2x10 each Therapeutic Exercise Activity 7: physioball rollouts, fwd, diagonal. Activity 7 Comment: x10 each Home Exercise Program: Progressed home exercise program Assessment Skilled physical therapy interventions utilized to improve patient s impairments and work towards established goals. Patient response to treatment: Patient educated on general activity recommendations for the average adult as well as ways to progress HEP at home. Reviewed HEP this date in preparation for discharge next session and provided progressions to current HEP. Patient tolerated progressions well without increase in pain. Patient will benefit from continued physical therapy to continue to progress core strength and endurance for ADL's. The rationale for today s treatment was explained to the patient. Verbal cues were provided for correct form with all exercises. Advised patient to continue with Home Exercise Program (HEP). Goals General/Ortho Patient will be independent with HEP. (Progressing) Start: 10/05/23 Expected End: 12/10/23 Patient will report decreased pain of < 4/10 at worst to be able to standing at least 10 minutes. (Progressing) Start: 10/05/23 Expected End: 12/10/23 Patient will increase lumbar ROM to 100% and pain-free to be able to roll in bed. (Progressing) Start: 10/05/23 Expected End: 12/10/23 Patient will increase B LE strength to 5/5 and pain-free to walk in the yard. (Progressing) Start: 10/05/23 Expected End: 12/10/23 Functional Outcome Measure: Patient will improve JENNIFER Score to < 10/50 to demonstrate improved function. (Not Addressed) Start: 11/10/23 Expected End: 12/10/23 Plan Plan for next session: RA and D/C Time Entry Total Treatment Time Start Time: 1125 Stop Time: 1152 Time Calculation (min): 27 min PT Therapeutic Procedures Time Entry Therapeutic Exercise Time Entry: 27 Rohith Tyler PT documented in this encounter [facility] 11-22-2023 Note HNO ID: [id number] Author: MARTHA LORENZO MD Service: ? 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 To a much lesser extent, she reported left sided pain in the same distribution to a much lower extent. She reported right foot drop for two months. She reports low back pain much more mild (VAS 6/10). Lumbar injections three months ago provided only transient relief. 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 within the past 6 months EMG (07/28/23): right L5 radiculopathy without a peroneal neuropathy Extensive electrodiagnostic examination of the right lower extremity and additional nerve conduction studies of the left lower extremity reveals the following changes: . 1. Absent sural sensory response bilaterally is likely technical in nature and secondary to severe LE edema and body habitus. Thus, no definite evidence of a large fiber polyneuropathy. Clinical correlation is recommended. 2. Chronic motor axon loss changes consistent with intraspinal canal lesions/process affecting the right L5 root or segment (i.e, motor radiculopathy), mild in degree electrically, being accompanied by evidence of active or ongoing motor fiber loss in right EDB muscle. Limited contralateral NEE revealed no significant abnormalities. 3. No evidence of a right peroneal neuropathy. Bone Mineral Density ACTIVE PROBLEM LIST High Cholesterol Hypertension Vitamin D Deficiency Anxiety Asthma Depression Flaccid Tetraplegia (Hcc) Hepatic Steatosis Gastroesophageal Reflux Disease Hidradenitis Suppurativa Radiculopathy, Lumbar Region Spinal Stenosis of Lumbar Region With Neurogenic Claudication PAST MEDICAL HISTORY Diagnosis Date Allergies Anxiety Arthritis Depression Gout Hiatal hernia High cholesterol Hydradenitis Hypertension Lyme disease triggered severe arthritis Vitamin D deficiency PAST SURGICAL HISTORY Procedure Laterality Date APPENDECTOMY HX BIOPSY BREAST benign COLONOSCOPY SCREENING 30 years ago per patient HYSTERECTOMY FAMILY HISTORY Problem Relation Age of Onset Immune Deficiency Mother Celiac Disease Father Heart Father Diabetes Paternal Grandmother Celiac Disease Other many family members Colon Cancer No Family History Anesthesia Problems No Family History Social History Tobacco Use Smoking status: Every Day Current packs/day: 1.00 Average packs/day: 1 pack/day for 49.9 years (49.9 ttl pk-yrs) Types: Cigarettes Start date: 12/25/1973 Smokeless tobacco: Never Tobacco comments: 5/ day, nicotine patches Vaping Use Vaping status: Never Used Substance Use Topics Alcohol use: Yes Alcohol/week: 3.0 standard drinks of alcohol Types: 3 Glasses of Wine (5oz) per week Comment: couple times/week Drug use: Not Currently Types: Marijuana Comment: has medical marijuana card, hasn't used since June 2023 ALLERGIES Allergen Reactions Codeine Other: See Comments Mind changes MEDICATIONS: fluticasone prp-sod.chl,bicarb 50 mcg- 0.9 % ksps Use 2 Sprays in the nose once daily. chlorthalidone (HYGROTON) 25 mg tablet Take 25 mg by mouth once daily. allopurinol (ZYLOPRIM) 300 mg tablet TAKE 1/2 (ONE-HALF) TABLET BY MOUTH IN THE MORNING budesonide-formoterol (SYMBICORT) 80-4.5 mcg/actuation inhaler Inhale 2 Puffs as instructed twice daily. omeprazole (PRILOSEC) 20 mg capsule Take 1 capsule by mouth once daily. pravastatin (PRAVACHOL) 20 mg tablet Take 1 tablet by mouth once daily. cholecalciferol, Vitamin D3, (VITAMIN D3) 1,250 mcg (50,000 unit) cap capsule Take 1 capsule by mouth one time a week. citalopram hydrobromide (CELEXA ORAL) Take 30 mg by mouth once daily. lisinopril (ZESTRIL, PRINIVIL) 20 mg tablet Take 20 mg by mouth once daily. albuterol HFA (PROAIR HFA) 90 mcg/actuation inhaler Inhale 2 Puffs as instructed every 6 hours as needed. LORazepam (ATIVAN) 0.5 mg (Patient not taking: Reported on 10/04/2023) rosuvastatin (CRESTOR) 40 mg tablet Take 40 mg by mouth once daily. (Patient not taking: Reported on 11/22/2023) HUMIRA,CF, PEN 40 mg/0.4 mL pen kit Inject 40 mg subcutaneously one time a week. Mondays (Patient not taking: Reported on 11/22/2023) meloxicam (MOBIC) 15 mg tablet Take 0.5 tablets by mouth twice daily. (Patient not taking: Reported on 11/22/2023) Patient Entered Questionnaires 07/26/2023 Spine Questions Pain Location: Leg Pain Duration: 3-6 months Pain ov (more content not included)... [facility] 11-22-2023 History of Present illness Narrative Images from the original note were not included. 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 To a much lesser extent, she reported left sided pain in the same distribution to a much lower extent. She reported right foot drop for two months. She reports low back pain much more mild (VAS 6/10). Lumbar injections three months ago provided only transient relief. 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 within the past 6 months EMG (07/28/23): right L5 radiculopathy without a peroneal neuropathy Extensive electrodiagnostic examination of the right lower extremity and additional nerve conduction studies of the left lower extremity reveals the following changes: . 1. Absent sural sensory response bilaterally is likely technical in nature and secondary to severe LE edema and body habitus. Thus, no definite evidence of a large fiber polyneuropathy. Clinical correlation is recommended. 2. Chronic motor axon loss changes consistent with intraspinal canal lesions/process affecting the right L5 root or segment (i.e, motor radiculopathy), mild in degree electrically, being accompanied by evidence of active or ongoing motor fiber loss in right EDB muscle. Limited contralateral NEE revealed no significant abnormalities. 3. No evidence of a right peroneal neuropathy. Bone Mineral Density ACTIVE PROBLEM LIST High Cholesterol Hypertension Vitamin D Deficiency Anxiety Asthma Depression Flaccid Tetraplegia (Hcc) Hepatic Steatosis Gastroesophageal Reflux Disease Hidradenitis Suppurativa Radiculopathy, Lumbar Region Spinal Stenosis of Lumbar Region With Neurogenic Claudication PAST MEDICAL HISTORY Diagnosis Date Allergies Anxiety Arthritis Depression Gout Hiatal hernia High cholesterol Hydradenitis Hypertension Lyme disease triggered severe arthritis Vitamin D deficiency PAST SURGICAL HISTORY Procedure Laterality Date APPENDECTOMY HX BIOPSY BREAST benign COLONOSCOPY SCREENING 30 years ago per patient HYSTERECTOMY FAMILY HISTORY Problem Relation Age of Onset Immune Deficiency Mother Celiac Disease Father Heart Father Diabetes Paternal Grandmother Celiac Disease Other many family members Colon Cancer No Family History Anesthesia Problems No Family History Social History Tobacco Use Smoking status: Every Day Current packs/day: 1.00 Average packs/day: 1 pack/day for 49.9 years (49.9 ttl pk-yrs) Types: Cigarettes Start date: 12/25/1973 Smokeless tobacco: Never Tobacco comments: 5/ day, nicotine patches Vaping Use Vaping status: Never Used Substance Use Topics Alcohol use: Yes Alcohol/week: 3.0 standard drinks of alcohol Types: 3 Glasses of Wine (5oz) per week Comment: couple times/week Drug use: Not Currently Types: Marijuana Comment: has medical marijuana card, hasn't used since June 2023 ALLERGIES Allergen Reactions Codeine Other: See Comments Mind changes MEDICATIONS: fluticasone prp-sod.chl,bicarb 50 mcg- 0.9 % ksps Use 2 Sprays in the nose once daily. chlorthalidone (HYGROTON) 25 mg tablet Take 25 mg by mouth once daily. allopurinol (ZYLOPRIM) 300 mg tablet TAKE 1/2 (ONE-HALF) TABLET BY MOUTH IN THE MORNING budesonide-formoterol (SYMBICORT) 80-4.5 mcg/actuation inhaler Inhale 2 Puffs as instructed twice daily. omeprazole (PRILOSEC) 20 mg capsule Take 1 capsule by mouth once daily. pravastatin (PRAVACHOL) 20 mg tablet Take 1 tablet by mouth once daily. cholecalciferol, Vitamin D3, (VITAMIN D3) 1,250 mcg (50,000 unit) cap capsule Take 1 capsule by mouth one time a week. citalopram hydrobromide (CELEXA ORAL) Take 30 mg by mouth once daily. lisinopril (ZESTRIL, PRINIVIL) 20 mg tablet Take 20 mg by mouth once daily. albuterol HFA (PROAIR HFA) 90 mcg/actuation inhaler Inhale 2 Puffs as instructed every 6 hours as needed. LORazepam (ATIVAN) 0.5 mg (Patient not taking: Reported on 10/04/2023) rosuvastatin (CRESTOR) 40 mg tablet Take 40 mg by mouth once daily. (Patient not taking: Reported on 11/22/2023) HUMIRA,CF, PEN 40 mg/0.4 mL pen kit Inject 40 mg subcutaneously one time a week. Mondays (Patient not taking: Reported on 11/22/2023) meloxicam (MOBIC) 15 mg tablet Take 0.5 tablets by mouth twice daily. (Patient not taking: Reported on 11/22/2023) Patient Entered Questionnaires 07/26/2023 Spine Questions Pain Location: Leg Pain Duration: 3-6 months Pain over last 6 months: Every day or nearly every day in the past 6 months Symptoms from neck/cervical spine: No Employment Status: Retired Involved in law suit/legal claim: No PROMIS Score Percentiles 07/26/2023 Physical Health Physical Function Percentile 2 Sleep Percentile 27* Fatigue Percentile 10 Pain Interference Percentile 2 07/26/2023 PROMIS SOCIAL ROLE SCORE Social Role Satisfaction Percentile 14 07/26/2023 PROMIS Global Health Scale Physical Health Percentile 10 Mental Health Percentile 13 Percentiles provide an indication of how the patient's score ranks in relation to the general population. Higher percentile rankings indicate better function/quality of life. 50th percentile is the average of the general population and indicates half of respondents had a worse score. Depression Screenin07/26/2023 PHQ-9 Score 7 07/26/2023 PHQ-9 Self-harm Question Question 9 Not at all PHQ-9 Self-Harm (Item 9) response options: 0 Not at all 1 Several days 2 More than half the days 3 Nearly every day PHQ-9 Levels: 0-4 No to mild depression 5-9 Mild depression 10-14 Moderate depression 15-19 Moderately severe depression 20-27 Severe depression OBJECTIVE: PHYSICAL EXAM BP 150/92 Pulse 90 Ht 160 cm (5' 3") Wt 121.1 kg (266 lb 15.6 oz) BMI 47.29 kg/m Constitutional Appears stated age, pleasant Psychiatric Alert and oriented to person, place, and time Normal speech and content. Appropriate mood and affect Pulmonary Breathing comfortably on room air Neurologic Cranial nerves are intact as per the following exam: II-vision grossly normal, PERRLA, III/IV/- EOMI, VII-hearing grossly normal, V-clench jaw, VII- raise eyebrows bilaterally; smile/frown intact and symmetric, able to bar teeth and puff out cheeks, XII- Able to protrude tongue and move it side to side, IX/X- swallow intact; says Ah Deep Tendon Reflexes Right Left Biceps 2+ 2+ Brachioradialis 2+ 2+ Patellar 2+ 2+ Rodriguez's Reflexes negative Sensation: sparing of sensation in the webspace between the first two toes on the right. This would suggest a peroneal nerve etiology Heel-to-Toe Test (Tandem Gait) within normal limits Musculoskeletal Manual Muscle Testing Right Left Shoulder Abduction (C5) 5/5 5/5 Elbow Flexion 5/5 5/5 Elbow Extension 5/5 5/5 Wrist Extension (C6) 5/5 5/5 Finger Extension (C7) 5/5 5/5 Finger Abduction (C8) 5/5 5/5 Hip Flexion 5/5 5/5 Knee Extension 5/5 5/5 Dorsiflexion (L4) 5/5 5/5 First Toe Extension (L5) 5/5 5/5 Plantar Flexion (S1) 5/5 5/5 Right eversion weakness Skin No rashes, bruising or other skin lesions. No visible edema DATA REVIEW [facility] records independently reviewed Imaging and outside records independently reviewed and findings are as follows: MRI L-spine (06/16/23): subcentimeter grade 1 anterolisthesis at L4-L5 contributing to moderate/severe degree of central canal and moderate degree bilateral foraminal stenosis greater right side. Alignment: Subcentimeter grade 1 anterolisthesis L4-5 level and mild degree of dextrocurvature distal thoracic-upper lumbar spine Bone marrow signal/fracture: No evidence of pathologic marrow infiltration. No evidence of acute or prior fracture. Degenerative disc/endplate degenerative changes most prominent L2-3 level Conus: The conus is within normal limits of signal intensity and morphology. Spinal cord terminates at the T12-L1 level. Cauda equina nerve roots appear unremarkable Paraspinal soft tissues: Paraspinal soft tissues are within normal limits. Lower thoracic spine: Visualized lower thoracic canal and foramina are patent. L1-L2: Canal and foramina are patent. No disc abnormalities L2-L3: Mild degree of degenerative central canal and foraminal narrowing secondary posterior endplate hypertrophy eccentric towards left side and posterior hypertrophic changes L3-L4: Mild degree of degenerative central canal and foraminal narrowing secondary posterior endplate hypertrophy and posterior hypertrophic changes L4-L5: Subcentimeter grade 1 anterolisthesis, posterior endplate upper/disc complex and hypertrophy the posterior elements contributing to moderate/severe degree of central canal and moderate degree bilateral foraminal stenosis greater right side. L5-S1: Partial sacralization. Bilateral facet joint arthropathy Sacrum and iliac wings: The visualized sacrum and iliac wings are within normal limits. 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 To recall, preoperative symptoms included with right lower extremity pain and, to a much lesser extent, back and left lower extremity pain. She endorsed weakness of right foot x2 months. I initially though that these symptoms likely arose from subcentimeter grade 1 anterolisthesis at L4-L5 contributing to moderate/severe degree of central canal and moderate degree bilateral foraminal stenosis greater right side. However, the weakness was localized to EVERSION only; moreover, exam demonstrates sparing of sensation in the webspace between the first two toes on the right. This would suggest a peroneal nerve etiology. EMG suggested right L5 radiculopathy without a peroneal neuropathy so we proceeded with spinal surgery Her right-sided symptoms and weakness completely resolved after surgery; however, just two weeks ago, she reported new onset left leg pain: buttocks, lateral thigh, and leg. Recommend I counseled the patient on the deleterious effects of the current smoking usage (1 packs/ day). We discussed, at length, the importance of smoking cessation for at least three months before surgery and indefinitely after surgery. A nicotine test will be ordered prior to surgery. Patient understands that the scheduled operation may be canceled if smoking continues. Medical Decision Making: Problems: Moderate: 2+ stable chronic illnesses Data: Unique source(s) for external note(s) reviewed: 3+ Unique test result(s) reviewed: 3+ Risk: Low: Low risk from testing/treatment Medical Decision Making Level: 4 - Moderate documented in this encounter [facility] 11-17-2023 History of Present illness Narrative Images from the original note were not included. [facility] AT [address] [place] [address] Dept: [phone] Dept PHYSICAL THERAPY TREATMENT Patient Name: Dima Nice : 1960 Date of Service: 11/17/2023 Referring Provider: Rajinder Brownlee MD Visit #: 6 Diagnosis: Radiculopathy, lumbar region Mechanism of injury: Pt had lumbar decompression surgery for spinal stenosis 6 weeks ago. Pt was able to walk 0.25 miles 3 times a day. Reports no back pain on R-side, but did report hip soreness. Pt is now getting L-sided back pain with radiating symptoms. Pt reports L-sided symptoms started 2 weeks ago. Pain located on L buttock, lateral hip and thigh, and posterior knee. L toes are numb. Described as sharp pain. Pt reports urinary urgency along with new L-sided back pain. This was similar to when she had R-sided pain. Pt did take Prednisone 2 weeks ago when L-sided pain started, but did not have relief. Patient Preferences: Dima Precautions/Red Flags: None Subjective Pt states feeling decent today, her leg is hurting right now from being very active lately. Compliance with HEP: Yes Objective Objective measurements not taken today. Treatment Therapeutic Exercise # of Activities: 10 Therapeutic Exercise Activity 1: Supine strength Activity 1 Comment: Bridge 2 x 10, TA marches 2 x10, Therapeutic Exercise Activity 3: CC core- All w/ TA brace Activity 3 Comment: Palloff press x 20 pot stirs x 10 ea, #40. Rows x20 #40, SAPD x 20 #30 Therapeutic Exercise Activity 4: Counter strength Activity 4 Comment: Squats 3x 10, fire hydrants 2 x 10, heel raises x 30 Therapeutic Exercise Activity 5: S/L hip ABD Activity 5 Comment: 3 x 10 Therapeutic Exercise Activity 6: Seated core- BMB Activity 6 Comment: Palloff press x 20, chops 2 x 10 ea Home Exercise Program: Progressed home exercise program Assessment Skilled physical therapy interventions utilized to improve patient s impairments and work towards established goals. Patient response to treatment: Began session today w/ reviewing TA and hip abduction. Required verbal and tactile cueing for avoiding leaning backwards w/ abd, pt improved w/ practice. Standing core and hip exercises performed for rest of session, pt reports feeling fatigued after exercises but no increase in pain. Patient will benefit from continued physical therapy to reduce symptoms and core/ LE stability. The rationale for today s treatment was explained to the patient. Verbal cues were provided for correct form with all exercises. Advised patient to continue with Home Exercise Program (HEP). Goals General/Ortho Patient will be independent with HEP. (Progressing) Start: 10/05/23 Expected End: 12/10/23 Patient will report decreased pain of < 4/10 at worst to be able to standing at least 10 minutes. (Progressing) Start: 10/05/23 Expected End: 12/10/23 Patient will increase lumbar ROM to 100% and pain-free to be able to roll in bed. (Progressing) Start: 10/05/23 Expected End: 12/10/23 Patient will increase B LE strength to 5/5 and pain-free to walk in the yard. (Progressing) Start: 10/05/23 Expected End: 12/10/23 Functional Outcome Measure: Patient will improve JENNIFER Score to < 10/50 to demonstrate improved function. (Progressing) Start: 11/10/23 Expected End: 12/10/23 Plan Plan for next session: Continue hip and core strengthening as able Time Entry Total Treatment Time Start Time: 1001 Stop Time: 1028 Time Calculation (min): 26 min PT Therapeutic Procedures Time Entry Therapeutic Exercise Time Entry: Madan Turner, SYSTEM SUPPORT DEVELOPER documented in this encounter [facility] 11-10-2023 History of Present illness Narrative Images from the original note were not included. [facility] [place] [address] [place] [address] Dept: [phone] Dept PHYSICAL THERAPY RE-EVALUATION Patient Name: Dima Nice : 1960 Date of Service: 11/10/2023 Referring Provider: Rajinder Brownlee MD Visit #: 5 Diagnosis: Radiculopathy, lumbar region Mechanism of injury: Pt had lumbar decompression surgery for spinal stenosis 6 weeks ago. Pt was able to walk 0.25 miles 3 times a day. Reports no back pain on R-side, but did report hip soreness. Pt is now getting L-sided back pain with radiating symptoms. Pt reports L-sided symptoms started 2 weeks ago. Pain located on L buttock, lateral hip and thigh, and posterior knee. L toes are numb. Described as sharp pain. Pt reports urinary urgency along with new L-sided back pain. This was similar to when she had R-sided pain. Pt did take Prednisone 2 weeks ago when L-sided pain started, but did not have relief. Patient Preferences: Dima Precautions/Red Flags: None Subjective General Comments: I have been doing pretty good, but after a long walk including hills led to increased soreness. I currently still can't feel the bottom of my feet, and I am still really sore in my left hip from the exercises, preventing exercises. At this time, I feel therapy is helpful to avoid surgery, and allowing me to 50% there. I have been able to be more active with house items at home, just continues to be aggravated with long and heavy activity. I did have a fall when I was walking on leaves and twisted my ankle, leading to bruising. Pain: Current: 5/10 Best: 2/10 Worst: 8/10 Current Level of Function: Pain with long walks and hills and difficulty walking on uneven surfaces Patient s Stated Goal: to be painfree. Outcome Measures Oswestry Low Back Disability: 17/50 (initially 32/50) Objective BACK Observation: forward head, rounded shoulders Gait: increased trunk sway, able to amb without assistive device Date Recorded: 10/05/2023 11/10/2023 Trunk AROM Percentage Percentage Flexion (flex) 75 85 Extension (ext) 25* 100 Right side bending (SBR) 100 100 Left side bending (SBL) 25* 75* Right rotation (rotR) 50 75 Left rotation (rotL) 50 75 10/05/2023 11/10/2023 Myotomes/LE Strength Right Left Right Left Hip Flexion (L2-L3) 4+/5 4/5 4+/5 4+/5 Hip Abduction 4/5 3+/5* 4/5 4-/5 Hip Extension 4+/5 < 3/5 4+/5 3-/5 Hip IR 4+/5 4/5* 4+/5 4+/5 Hip ER 4+/5 4+/5 4+/5 4+/5 Knee Extension (L3-L4) 5/5 5/5 5 5 Knee Flexion (S2) 4+/5 4+/5 5 5 Ankle DF (L5) 5/5 4+/5 5 4+/5 Palpation: mild-moderate TTP of L piriformis, Assessment Patient demonstrates improvement in strength, lumbar ROM, and pain and activities since initial evaluation. Patient continues to have pain, and decreased lumbar ROM, strength, and radicular symptoms leading to difficulty performing long walks and higher level activities at home. Patient would benefit from continued physical therapy to address the above limitations so patient can walk, lift, and be active without increased pain. . Rehab Potential: Good Goals Active General/Ortho Patient will be independent with HEP. (Progressing) Start: 10/05/23 Expected End: 12/10/23 Patient will report decreased pain of < 4/10 at worst to be able to standing at least 10 minutes. (Progressing) Start: 10/05/23 Expected End: 12/10/23 Patient will increase lumbar ROM to 100% and pain-free to be able to roll in bed. (Progressing) Start: 10/05/23 Expected End: 12/10/23 Patient will increase B LE strength to 5/5 and pain-free to walk in the yard. (Progressing) Start: 10/05/23 Expected End: 12/10/23 Functional Outcome Measure: Patient will improve JENNIFER Score to < 22/50 to demonstrate improved function. (Completed) Start: 10/05/23 Expected End: 11/05/23 Resolved: 11/10/23 Updated to: Functional Outcome Measure: Patient will improve JENNIFER Score to < 10/50 to demonstrate improved function. Update reason: Goal Met Functional Outcome Measure: Patient will improve JENNIFER Score to < 10/50 to demonstrate improved function. (Initiated) Start: 11/10/23 Expected End: 12/10/23 Plan Frequency and Duration: 1/wk for 4 weeks Therapeutic Contents: client education, gait training, group therapy, home exercise program, manual therapy techniques, neuromuscular re-education, self care/home management, sensory re-education/desensitization, therapeutic activities, therapeutic exercise, and modalities as needed Plan for next session: check S/L hip abd form, continue to strengthen hip abd, extensor muscles. Risks and benefits were discussed with the patient and/or family, and the patient and/or family participated with the plan of care and agrees. Treatment Therapeutic Exercise # of Activities: 10 Therapeutic Exercise Activity 1: Supine strength Activity 1 Comment: Bridge 2 x 10, TA marches 2 x10, SLR x 10 B Therapeutic Exercise Activity 2: piriformis stretch Activity 2 Comment: B 30s Therapeutic Exercise Activity 3: CC core Activity 3 Comment: Palloff press/ pot stirs x 20 ea, #30 Therapeutic Exercise Activity 4: Counter strength Activity 4 Comment: Squats 2 x 10, hip abduction 2 x 10, heel raises x 20 Therapeutic Exercise Activity 5: S/L hip ABD Activity 5 Comment: 2x10 with R, 3x7 with L Therapeutic Activity Therapeutic Activity 1: Re-assessed patients objective & subjective measures, reviewed patients POC, addressed goals and patients progress. Discussed current POC and goals moving forward with therapy. Activity 1 Comment: x5 min Therapeutic Activity 2: Education on hip mechanics with walking, hip drop, compensations leading to increased trunk sway with ambulation. Edu on HEP reps/set progression to maintain safe and challenging home exercise program. Activity 2 Comment: x5 min Home Exercise Program: Progressed home exercise program Time Entry Total Treatment Time Start Time: 1138 Stop Time: 1213 Time Calculation (min): 35 min PT Therapeutic Procedures Time Entry Therapeutic Exercise Time Entry: 25 Therapeutic Activity Time Entry: 10 Rohith Tyler PT documented in this encounter [facility] 11-08-2023 History of Present illness Narrative Images from the original note were not included. [facility] [place] [address] [place] [address] Dept: [phone] Dept PHYSICAL THERAPY TREATMENT Patient Name: Dima Nice : 1960 Date of Service: 11/08/2023 Referring Provider: Rajinder Brownlee MD Visit #: 4 Diagnosis: Radiculopathy, lumbar region Mechanism of injury: Pt had lumbar decompression surgery for spinal stenosis 6 weeks ago. Pt was able to walk 0.25 miles 3 times a day. Reports no back pain on R-side, but did report hip soreness. Pt is now getting L-sided back pain with radiating symptoms. Pt reports L-sided symptoms started 2 weeks ago. Pain located on L buttock, lateral hip and thigh, and posterior knee. L toes are numb. Described as sharp pain. Pt reports urinary urgency along with new L-sided back pain. This was similar to when she had R-sided pain. Pt did take Prednisone 2 weeks ago when L-sided pain started, but did not have relief. Patient Preferences: Dima Precautions/Red Flags: None Subjective Pt reports feeling sore but that she has had worse days. Was out hiking over the weekend which felt fine when performing, but increased her pain afterwards. Bridges have also been increasing her symptoms during after performing. Compliance with HEP: Yes Objective Objective measurements not taken today. Treatment Therapeutic Exercise # of Activities: 10 Therapeutic Exercise Activity 1: Supine strength Activity 1 Comment: Bridge 2 x 10, TA marches 2 x10, ball squeeze x 15 w/ 3" hold. Therapeutic Exercise Activity 3: CC core Activity 3 Comment: Palloff press/ pot stirs x 20 ea, #30 Therapeutic Exercise Activity 4: Counter strength Activity 4 Comment: Squats 2 x 10, hip abduction 2 x 10, heel raises x 20 Home Exercise Program: Deferred Assessment Skilled physical therapy interventions utilized to improve patient s impairments and work towards established goals. Patient response to treatment: Continued hip and core strength this date. Began session by reviewing bridges and TA marches. Pt had no increase in pain when performing bridges w/ focus on glute squeeze. Good tolerance to TA marches and hip strength exercises. Added standing exercises to HEP, pt states feeling comfortable performing at home. Patient will benefit from continued physical therapy to benefit QOL and reduce symptoms. The rationale for today s treatment was explained to the patient. Verbal cues were provided for correct form with all exercises. Advised patient to continue with Home Exercise Program (HEP). Goals General/Ortho Patient will be independent with HEP. (Progressing) Start: 10/05/23 Expected End: 11/05/23 Patient will report decreased pain of < 4/10 at worst to be able to standing at least 10 minutes. (Progressing) Start: 10/05/23 Expected End: 11/05/23 Patient will increase lumbar ROM to 100% and pain-free to be able to roll in bed. (Progressing) Start: 10/05/23 Expected End: 11/05/23 Patient will increase B LE strength to 5/5 and pain-free to walk in the yard. (Progressing) Start: 10/05/23 Expected End: 11/05/23 Functional Outcome Measure: Patient will improve JENNIFER Score to < 22/50 to demonstrate improved function. (Progressing) Start: 10/05/23 Expected End: 11/05/23 Plan Plan for next session: Reassess pt Time Entry Total Treatment Time Start Time: 1233 Stop Time: 1258 Time Calculation (min): 25 min PT Therapeutic Procedures Time Entry Therapeutic Exercise Time Entry: 25 Madan Turner PTA documented in this encounter [facility] [employer] 10-27-2023 History of Present illness Narrative Images from the original note were not included. [facility] AT [address] [place] [address] Dept: [phone] Dept PHYSICAL THERAPY TREATMENT Patient Name: Dima Nice : 1960 Date of Service: 10/27/2023 Referring Provider: Rajinder Brownlee MD Visit #: 3 Diagnosis: Radiculopathy, lumbar region Mechanism of injury: Pt had lumbar decompression surgery for spinal stenosis 6 weeks ago. Pt was able to walk 0.25 miles 3 times a day. Reports no back pain on R-side, but did report hip soreness. Pt is now getting L-sided back pain with radiating symptoms. Pt reports L-sided symptoms started 2 weeks ago. Pain located on L buttock, lateral hip and thigh, and posterior knee. L toes are numb. Described as sharp pain. Pt reports urinary urgency along with new L-sided back pain. This was similar to when she had R-sided pain. Pt did take Prednisone 2 weeks ago when L-sided pain started, but did not have relief. Patient Preferences: Dima Precautions/Red Flags: None Subjective I was only able to sleep for 3 hours last night. My worst pain is when I am sleeping, when I roll over my left side just screams at me and wake me up. Sitting too long and driving increase my pain in my back. The pain is in the outside of my leg/hip. My foot feels numb. The HEP isn't making things worse. It is when I have to lift my hip on my left side to roll. Compliance with HEP: Yes Objective Objective measurements not taken today. Treatment Therapeutic Exercise # of Activities: 10 Therapeutic Exercise Activity 1: nu-step level 1 5' Therapeutic Exercise Activity 2: LTR B x20 Therapeutic Exercise Acitivity 3: TA holds in H/L. Activity 3 Comment: 10 sec hold x 5 Therapeutic Activity # of Activities: 4 Therapeutic Activity 1: Bridges with education on nerve pain vs muscle pain, as well as impact muscle therapy makes on nerve pain. Act provided to improve pain with rolling in bed Activity 1 Comment: 2x10 . Therapeutic Activity 2: TA hold with leg march in H/L. Pt educate on maintaining breath cycle throughout. x Activity 2 Comment: 3 x 10 alt legs. Therapeutic Activity 3: sit to stands from mat table without UE Activity 3 Comment: 2x5. Home Exercise Program: Progressed home exercise program Assessment Skilled physical therapy interventions utilized to improve patient s impairments and work towards established goals. Activities provided this date to increase range of motion and core strength with functional activities so patient can roll in bed without increased pain. Patient response to treatment: no increase in pain with exercises provided. Patient required ext education on proper core contraction and demonstrated good carry over of instruction to other core exercises performed this session. Patient will benefit from continued physical therapy to continue to improve strength so patient can roll in bed without increased pain. The rationale for today s treatment was explained to the patient. Verbal cues were provided for correct form with all exercises. Advised patient to continue with Home Exercise Program (HEP). Goals General/Ortho Patient will be independent with HEP. (Progressing) Start: 10/05/23 Expected End: 11/05/23 Patient will report decreased pain of < 4/10 at worst to be able to standing at least 10 minutes. (Progressing) Start: 10/05/23 Expected End: 11/05/23 Patient will increase lumbar ROM to 100% and pain-free to be able to roll in bed. (Progressing) Start: 10/05/23 Expected End: 11/05/23 Patient will increase B LE strength to 5/5 and pain-free to walk in the yard. (Progressing) Start: 10/05/23 Expected End: 11/05/23 Functional Outcome Measure: Patient will improve JENNIFER Score to < 22/50 to demonstrate improved function. (Not Addressed) Start: 10/05/23 Expected End: 11/05/23 Plan Plan for next session: bridges progression, core progression. Time Entry Total Treatment Time Start Time: 1234 Stop Time: 1300 Time Calculation (min): 26 min PT Therapeutic Procedures Time Entry Therapeutic Exercise Time Entry: 10 Therapeutic Activity Time Entry: 16 Rohith Tyler PT documented in this encounter [facility] 10-13-2023 History of Present illness Narrative Images from the original note were not included. [facility] AT [address] [place] [address] Dept: [phone] Dept PHYSICAL THERAPY TREATMENT Patient Name: Dima Nice : 1960 Date of Service: 10/13/2023 Referring Provider: Rajinder Brownlee MD Visit #: 2 Diagnosis: Radiculopathy, lumbar region Mechanism of injury: Pt had lumbar decompression surgery for spinal stenosis 6 weeks ago. Pt was able to walk 0.25 miles 3 times a day. Reports no back pain on R-side, but did report hip soreness. Pt is now getting L-sided back pain with radiating symptoms. Pt reports L-sided symptoms started 2 weeks ago. Pain located on L buttock, lateral hip and thigh, and posterior knee. L toes are numb. Described as sharp pain. Pt reports urinary urgency along with new L-sided back pain. This was similar to when she had R-sided pain. Pt did take Prednisone 2 weeks ago when L-sided pain started, but did not have relief. Patient Preferences: Dima Precautions/Red Flags: None Subjective Dima says she has quite a bit of left leg pain today. It started on her right, she had surgery, not it is her left. Says her exercises didn't bother her but made her tired. Compliance with HEP: missed a few days Objective Objective measurements not taken today. Treatment Therapeutic Exercise # of Activities: 10 Therapeutic Exercise Activity 1: nu-step level 1 5' Therapeutic Exercise Activity 2: seated hamstring stretch 2x20s Therapeutic Exercise Acitivity 3: LAQ 2x10 B Therapeutic Exercise Activity 4: seated hip adduction x10 3s Therapeutic Exercise Activity 5: seated hip abduction 2x10 red Therapeutic Exercise Activity 6: seated marching 2x10 Therapeutic Exercise Activity 7: pallof press 2x10 red Therapeutic Exercise Activity 8: seated sciatic nerve tensioner x10 L Therapeutic Exercise Activity 9: seated glute set x10 3s Therapeutic Exercise Activity 10: hamstring curl x20 B red Home Exercise Program: Progressed home exercise program Assessment Skilled physical therapy interventions utilized to improve patient s impairments and work towards established goals. Progressed strengthening exercises today Patient response to treatment: able to complete all exercises with slight discomfort, severe discomfort with sit to stand so this was deferred Patient will benefit from continued physical therapy to reduce pain and progress to higher levels of function The rationale for today s treatment was explained to the patient. Verbal cues were provided for correct form with all exercises. Advised patient to continue with Home Exercise Program (HEP). Goals General/Ortho Patient will be independent with HEP. (Progressing) Start: 10/05/23 Expected End: 11/05/23 Patient will report decreased pain of < 4/10 at worst to be able to standing at least 10 minutes. (Progressing) Start: 10/05/23 Expected End: 11/05/23 Patient will increase lumbar ROM to 100% and pain-free to be able to roll in bed. (Progressing) Start: 10/05/23 Expected End: 11/05/23 Patient will increase B LE strength to 5/5 and pain-free to walk in the yard. (Progressing) Start: 10/05/23 Expected End: 11/05/23 Functional Outcome Measure: Patient will improve JENNIFER Score to < 22/50 to demonstrate improved function. (Not Addressed) Start: 10/05/23 Expected End: 11/05/23 Plan Plan for next session: seated/table exercises, bridges and others if able Time Entry Total Treatment Time Start Time: 1303 Stop Time: 1331 Time Calculation (min): 28 min PT Therapeutic Procedures Time Entry Therapeutic Exercise Time Entry: 28 Aiden Benson PT documented in this encounter [facility] 10-13-2023 History of Present illness Narrative Chelsie Nice is a 63 y.o. female who presents for the following: Skin Check. Skin Cancer Screening She has a history of moderate sun exposure. She is in the sun occasionally. She uses sunscreen occasionally. She reports no skin symptoms. Her moles are not changing. Objective Well appearing patient in no apparent distress; mood and affect are within normal limits. A focused examination was performed including extremities, including the arms, hands, fingers, and fingernails and the legs, feet, toes, and toenails and head, including the scalp, face, neck, nose, ears, eyelids, and lips. All findings within normal limits unless otherwise noted below. Left Axilla, Pelvis - Anterior, Right Axilla Dilated comedones, inflammatory papules, sinus tract formation, scarring. Discontinued Humira a few months ago, was concerned with side effects. The condition has flared. Currently on Bactrim per patient's request. Assessment/Plan Hidradenitis suppurativa Pelvis - Anterior; Left Axilla; Right Axilla - Hidradenitis suppurativa is a chronic condition of clogged sweat glands that leads to inflammation of the skin in areas such as the groin, underarms, underneath the breasts, and in between the buttocks. It most commonly appears as multiple large nodules (solid, raised bumps), abscesses (red, swollen, warm, tender bumps or lumps with pus inside), and tunnels (holes in the skin that may contain fluid such as pus) in these areas. The nodules and abscesses gradually get larger and drain pus. After multiple bouts of this cycle of plugging, enlargement, and drainage, there may be tunnel formation under the skin and scarring. Pain is the most common symptom, but individuals with hidradenitis suppurativa also report itchy lesions, a foul odor coming from lesions when they drain pus, feeling tired, and joint pain. - While there is no cure for hidradenitis suppurativa, you can work with your medical professional to treat existing lesions and prevent new ones. - Make sure to wash any inflamed, draining areas of hidradenitis suppurativa with antibacterial soap, and then apply an antibiotic ointment (Neosporin) and clean bandages. If there is a large amount of drainage, change the gauze pads and dressings often. Warm compresses and ibuprofen (Advil, Motrin) can help reduce the swelling. Avoid wearing tight-fitting clothing to help prevent further irritation. - Weight loss may decrease lesions by decreasing skin folds and, thus, friction on the skin. Smoking should be avoided. Plan - Discussed treatment options. Will start PA process for Cosentyx, no PMH of IBD or CHF. Discussed side effects, will call if she experiences any. - Labs reviewed from 06/2023, will repeat Tspot in June 2024. - Please call if you have any further questions or concerns. - Risks, benefits, and side effects discussed in office. Return to clinic in 4 months. documented in this encounter [facility] Work Phone: 10-10-2023 Telephone encounter Note Prescription Request: Last medication check: 05/26/2023 Last physical exam:09/30/2021 Last completed appointment: Next scheduled appointment: none Last date of refill on this medication: 08/16/2023 [facility] 10-10-2023 Miscellaneous Notes Prescription Request: Last medication check: 05/26/2023 Last physical exam:09/30/2021 Last completed appointment: Next scheduled appointment: none Last date of refill on this medication: 08/16/2023 documented in this encounter [facility] [employer] 10-05-2023 History of Present illness Narrative Images from the original note were not included. [facility] [place] [facility] [place] [address] [place] [address] Dept: [phone] Dept PHYSICAL THERAPY EVALUATION Patient Name: Dima Nice : 1960 Date of Service: 10/05/2023 Referring Provider: Rajinder Brownlee MD Visit #: 1 Diagnosis: Radiculopathy, lumbar region General Information Mechanism of injury: Pt had lumbar decompression surgery for spinal stenosis 6 weeks ago. Pt was able to walk 0.25 miles 3 times a day. Reports no back pain on R-side, but did report hip soreness. Pt is now getting L-sided back pain with radiating symptoms. Pt reports L-sided symptoms started 2 weeks ago. Pain located on L buttock, lateral hip and thigh, and posterior knee. L toes are numb. Described as sharp pain. Pt reports urinary urgency along with new L-sided back pain. This was similar to when she had R-sided pain. Pt did take Prednisone 2 weeks ago when L-sided pain started, but did not have relief. Patient Preferences: Dima Precautions/Red Flags: None Fall Risk: No R foot drop with prior R-sided back pain which caused 2 trips Work status: retired Home Setup: 2-story home, bedroom/bathroom on main level, 5-6 NATASHA, uses cane and shower chair. Owns walkers, rollator, grab bars. Lives with daughter, 2 grandkids, and son. PMHX: Dima has a past medical history of Allergic, Allergic rhinitis, Anxiety, Asthma, Depression, GERD (gastroesophageal reflux disease), Hyperlipidemia, and Hypertension. PSHX: Dima has a past surgical history that includes Appendectomy and Total vaginal hysterectomy. Have you experienced any anxiety or depression?: Yes Have you experienced thoughts of self-harm or suicidal thoughts?: No Social Determinates of Health Reviewed: Yes Physician follow-up appointment?: Yes Subjective Chief Complaint: lumbar radiculopathy Pain: Current: 6/10 Best: 2/10 Worst: 8/10 Symptoms Aggravated by: standing more than 5 minutes, walking more than 50 yards Symptoms Relieved by: heat, Tramadol, sitting Prior Level of Function: No limitations. Current Level of Function: Difficulty rolling in bed. Able to cook and complete light housework, but needs to sit frequently. Difficulty walking in the grass. Patient s Stated Goal: Reduce pain. Outcome Measures Oswestry Low Back Disability: 32/50 Objective BACK Observation: forward head, rounded shoulders Gait: antalgic gait, use of cane Stairs: use of 1 handrail and cane, step-to pattern both ascending and descending Date Recorded: 10/05/23 Trunk AROM Percentage Flexion (flex) 75 Extension (ext) 25* Right side bending (SBR) 100 Left side bending (SBL) 25* Right rotation (rotR) 50 Left rotation (rotL) 50 Myotomes/LE Strength Right Left Hip Flexion (L2-L3) 4+/5 4/5 Hip Abduction 4/5 3+/5* Hip Extension 4+/5 < 3/5 Hip IR 4+/5 4/5* Hip ER 4+/5 4+/5 Knee Extension (L3-L4) 5/5 5/5 Knee Flexion (S2) 4+/5 4+/5 Ankle DF (L5) 5/5 4+/5 Palpation: mild-moderate TTP of L piriformis, moderate-severe TTP of L4-L5 (over incision) Flexibility: B hamstrings not limited Special Tests: Straight Leg Raise: right negative and left negative Slump: right negative and left negative Assessment Dima is a 63 y.o. patient with chief complaint of L-sided low back pain, who presents with signs and symptoms consistent with spinal stenosis. The patient would benefit from skilled physical therapy to address decreased strength, decreased range of motion, decreased endurance, impaired balance, decreased mobility, decreased coordination, impaired tone, obesity, orthopedic restrictions, pain, soft tissue impairment, impaired gait, and impaired functional activities. Evaluation complexity is low secondary to: patient has 1-2 personal factors and/or comorbidities that will affect plan of care, therapy will be addressing 1-2 elements, and clinical presentation is stable. Body Systems Affected: musculoskeletal and neuromuscular Rehab Potential: Good Learning Preferences: demonstration, explanation, performance, and printed materials Barriers to Rehab: past/current experience, rehab experience, and severity Goals General/Ortho Patient will be independent with HEP. (Initiated) Start: 10/05/23 Expected End: 11/05/23 Patient will report decreased pain of < 4/10 at worst to be able to standing at least 10 minutes. (Initiated) Start: 10/05/23 Expected End: 11/05/23 Patient will increase lumbar ROM to 100% and pain-free to be able to roll in bed. (Initiated) Start: 10/05/23 Expected End: 11/05/23 Patient will increase B LE strength to 5/5 and pain-free to walk in the yard. (Initiated) Start: 10/05/23 Expected End: 11/05/23 Functional Outcome Measure: Patient will improve JENNIFER Score to < 22/50 to demonstrate improved function. (Initiated) Start: 10/05/23 Expected End: 11/05/23 Plan Frequency and Duration: 1-2/wk for 4 weeks Therapeutic Contents: aquatics/pool, client education, gait training, group therapy, home exercise program, manual therapy techniques, neuromuscular re-education, self care/home management, sensory re-education/desensitization, therapeutic activities, therapeutic exercise, trigger point dry needle, and modalities as needed Plan for next session: Assess response to HEP. Progress as tolerated. Risks and benefits were discussed with the patient and/or family, and the patient and/or family participated with the plan of care and agrees. Treatment Therapeutic Exercise # of Activities: 6 Therapeutic Exercise Activity 1: prone/prone press up Therapeutic Exercise Activity 2: seated hamstring stretch Activity 2 Comment: 1x20 seconds each Therapeutic Exercise Acitivity 3: LAQ Activity 3 Comment: 1x5 Therapeutic Exercise Activity 4: seated march Activity 4 Comment: 1x5 each Therapeutic Exercise Activity 5: seated hip adduction ball squeeze Activity 5 Comment: 1x5 Therapeutic Exercise Activity 6: seated hip abduction Activity 6 Comment: Red TB, 1x5 Patient Education: Provided education on diagnosis and treatment. Reviewed HEP. Answered pt's questions. Home Exercise Program: Created Time Entry Total Treatment Time Start Time: 1400 Stop Time: 1450 Time Calculation (min): 50 min PT Evaluation Time Entry PT Evaluation (Low) Time Entry: 35 PT Therapeutic Procedures Time Entry Therapeutic Exercise Time Entry: 15 Tabatha Irby PT documented in this encounter [facility] 10-04-2023 History of Present illness Narrative Radiology Service Progress Note PATIENT NAME: Dima Nice DATE OF SERVICE: October 04, 2023 TIME: 11:56 AM PATIENT IDENTITY VERIFICATION COMPLETED USING TWO (2) IDENTIFIERS: Name and Date of confirmed by patient verbally and Name and Date of confirmed by identification band. FALL SCREENING: Has the patient had 2 falls in the last year or 1 fall with injury or currently using an Ambulatory Assistive Device (Walker, Cane, Wheelchair, Crutches, etc.)? No PATIENT GENDER DATA: Female. status: : No status: NO. PATIENT RELEVANT IMPLANT DATA REVIEWED: Not Applicable PATIENT PRESENTS WITH AN IMPLANTABLE OR ATTACHED FABRICATION OPERATOR: No RADIOLOGY DEPARTMENT: General X-ray: Exam(s) Completed: Pelvis X-Ray: Pelvis with Hip Bilateral PERIPHERAL IV DATA: Not applicable SIGNED BY: PHILIPP Grier) October 04, 2023 11:56 AM documented in this encounter [facility] 10-04-2023 Note HNO ID: [id number] Author: GLO LARSEN RT(R) Service: Radiology Author Type: Technologist Type: Progress Notes Filed: 10/04/2023 11:56 Note Text: Radiology Service Progress Note PATIENT NAME: Dima Nice DATE OF SERVICE: October 04, 2023 TIME: 11:56 AM PATIENT IDENTITY VERIFICATION COMPLETED USING TWO (2) IDENTIFIERS: Name and Date of confirmed by patient verbally and Name and Date of confirmed by identification band. FALL SCREENING: Has the patient had 2 falls in the last year or 1 fall with injury or currently using an Ambulatory Assistive Device (Walker, Cane, Wheelchair, Crutches, etc.)? No PATIENT GENDER DATA: Female. status: : No status: NO. PATIENT RELEVANT IMPLANT DATA REVIEWED: Not Applicable PATIENT PRESENTS WITH AN IMPLANTABLE OR ATTACHED FABRICATION OPERATOR: No RADIOLOGY DEPARTMENT: General X-ray: Exam(s) Completed: Pelvis X-Ray: Pelvis with Hip Bilateral PERIPHERAL IV DATA: Not applicable SIGNED BY: RT Marvel(R) October 04, 2023 11:56 AM [facility] 10-04-2023 Note HNO ID: [id number] Author: MARTHA LORENZO MD Service: ? 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 To a much lesser extent, she reported left sided pain in the same distribution to a much lower extent. She reported right foot drop for two months. She reports low back pain much more mild (VAS 6/10). Lumbar injections three months ago provided only transient relief. 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 within the past 6 months EMG (07/28/23): right L5 radiculopathy without a peroneal neuropathy Extensive electrodiagnostic examination of the right lower extremity and additional nerve conduction studies of the left lower extremity reveals the following changes: . 1. Absent sural sensory response bilaterally is likely technical in nature and secondary to severe LE edema and body habitus. Thus, no definite evidence of a large fiber polyneuropathy. Clinical correlation is recommended. 2. Chronic motor axon loss changes consistent with intraspinal canal lesions/process affecting the right L5 root or segment (i.e, motor radiculopathy), mild in degree electrically, being accompanied by evidence of active or ongoing motor fiber loss in right EDB muscle. Limited contralateral NEE revealed no significant abnormalities. 3. No evidence of a right peroneal neuropathy. Bone Mineral Density ACTIVE PROBLEM LIST High Cholesterol Hypertension Vitamin D Deficiency Anxiety Asthma Depression Flaccid Tetraplegia (Hcc) Hepatic Steatosis Gastroesophageal Reflux Disease Hidradenitis Suppurativa Radiculopathy, Lumbar Region Spinal Stenosis of Lumbar Region With Neurogenic Claudication PAST MEDICAL HISTORY No date: Allergies No date: Anxiety No date: Arthritis No date: Depression No date: Gout No date: Hiatal hernia No date: High cholesterol No date: Hydradenitis No date: Hypertension No date: Lyme disease Comment: triggered severe arthritis No date: Vitamin D deficiency PAST SURGICAL HISTORY No date: APPENDECTOMY HX No date: BIOPSY BREAST Comment: benign No date: COLONOSCOPY SCREENING Comment: 30 years ago per patient No date: HYSTERECTOMY FAMILY HISTORY Problem Relation Age of Onset Immune Deficiency Mother Celiac Disease Father Heart Father Diabetes Paternal Grandmother Celiac Disease Other many family members Colon Cancer No Family History Anesthesia Problems No Family History Social History Tobacco Use Smoking status: Every Day Current packs/day: 1.00 Average packs/day: 1 pack/day for 49.8 years (49.8 ttl pk-yrs) Types: Cigarettes Start date: 12/25/1973 Smokeless tobacco: Never Tobacco comments: 5/ day, nicotine patches Vaping Use Vaping status: Never Used Substance Use Topics Alcohol use: Yes Alcohol/week: 3.0 standard drinks of alcohol Types: 3 Glasses of Wine (5oz) per week Comment: couple times/week Drug use: Not Currently Types: Marijuana Comment: has medical marijuana card, hasn't used since June 2023 ALLERGIES Allergen Reactions Codeine Other: See Comments Mind changes MEDICATIONS: fluticasone prp-sod.chl,bicarb 50 mcg- 0.9 % ksps Use 2 Sprays in the nose once daily. chlorthalidone (HYGROTON) 25 mg tablet Take 25 mg by mouth once daily. rosuvastatin (CRESTOR) 40 mg tablet Take 40 mg by mouth once daily. allopurinol (ZYLOPRIM) 300 mg tablet TAKE 1/2 (ONE-HALF) TABLET BY MOUTH IN THE MORNING budesonide-formoterol (SYMBICORT) 80-4.5 mcg/actuation inhaler Inhale 2 Puffs as instructed twice daily. omeprazole (PRILOSEC) 20 mg capsule Take 1 capsule by mouth once daily. pravastatin (PRAVACHOL) 20 mg tablet Take 1 tablet by mouth once daily. meloxicam (MOBIC) 15 mg tablet Take 0.5 tablets by mouth twice daily. (Patient taking differently: Take 7.5 mg by mouth once daily.) cholecalciferol, Vitamin D3, (VITAMIN D3) 1,250 mcg (50,000 unit) cap capsule Take 1 capsule by mouth one time a week. citalopram hydrobromide (CELEXA ORAL) Take 30 mg by mouth once daily. lisinopril (ZESTRIL, PRINIVIL) 20 mg tablet Take 20 mg by mouth once daily. albuterol HFA (PROAIR HFA) 90 mcg/actuation inhaler Inhale 2 Puffs as instructed every 6 hours as needed. baclofen 15 mg tablet Take 1 tablet (15 mg) by mouth three times a day for 14 days. (Patient not taking: Reported on 10/04/2023) LORazepam (ATIVAN) 0.5 mg (Patient not taking: Reported on 10/04/2023) ESTER HANSEN, PEN 40 mg/0.4 mL pen ki (more content not included)... [facility] 10-04-2023 History of Present illness Narrative Images from the original note were not included. 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 To a much lesser extent, she reported left sided pain in the same distribution to a much lower extent. She reported right foot drop for two months. She reports low back pain much more mild (VAS 6/10). Lumbar injections three months ago provided only transient relief. 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 within the past 6 months EMG (07/28/23): right L5 radiculopathy without a peroneal neuropathy Extensive electrodiagnostic examination of the right lower extremity and additional nerve conduction studies of the left lower extremity reveals the following changes: . 1. Absent sural sensory response bilaterally is likely technical in nature and secondary to severe LE edema and body habitus. Thus, no definite evidence of a large fiber polyneuropathy. Clinical correlation is recommended. 2. Chronic motor axon loss changes consistent with intraspinal canal lesions/process affecting the right L5 root or segment (i.e, motor radiculopathy), mild in degree electrically, being accompanied by evidence of active or ongoing motor fiber loss in right EDB muscle. Limited contralateral NEE revealed no significant abnormalities. 3. No evidence of a right peroneal neuropathy. Bone Mineral Density ACTIVE PROBLEM LIST High Cholesterol Hypertension Vitamin D Deficiency Anxiety Asthma Depression Flaccid Tetraplegia (Hcc) Hepatic Steatosis Gastroesophageal Reflux Disease Hidradenitis Suppurativa Radiculopathy, Lumbar Region Spinal Stenosis of Lumbar Region With Neurogenic Claudication PAST MEDICAL HISTORY No date: Allergies No date: Anxiety No date: Arthritis No date: Depression No date: Gout No date: Hiatal hernia No date: High cholesterol No date: Hydradenitis No date: Hypertension No date: Lyme disease Comment: triggered severe arthritis No date: Vitamin D deficiency PAST SURGICAL HISTORY No date: APPENDECTOMY HX No date: BIOPSY BREAST Comment: benign No date: COLONOSCOPY SCREENING Comment: 30 years ago per patient No date: HYSTERECTOMY FAMILY HISTORY Problem Relation Age of Onset Immune Deficiency Mother Celiac Disease Father Heart Father Diabetes Paternal Grandmother Celiac Disease Other many family members Colon Cancer No Family History Anesthesia Problems No Family History Social History Tobacco Use Smoking status: Every Day Current packs/day: 1.00 Average packs/day: 1 pack/day for 49.8 years (49.8 ttl pk-yrs) Types: Cigarettes Start date: 12/25/1973 Smokeless tobacco: Never Tobacco comments: 5/ day, nicotine patches Vaping Use Vaping status: Never Used Substance Use Topics Alcohol use: Yes Alcohol/week: 3.0 standard drinks of alcohol Types: 3 Glasses of Wine (5oz) per week Comment: couple times/week Drug use: Not Currently Types: Marijuana Comment: has medical marijuana card, hasn't used since June 2023 ALLERGIES Allergen Reactions Codeine Other: See Comments Mind changes MEDICATIONS: fluticasone prp-sod.chl,bicarb 50 mcg- 0.9 % ksps Use 2 Sprays in the nose once daily. chlorthalidone (HYGROTON) 25 mg tablet Take 25 mg by mouth once daily. rosuvastatin (CRESTOR) 40 mg tablet Take 40 mg by mouth once daily. allopurinol (ZYLOPRIM) 300 mg tablet TAKE 1/2 (ONE-HALF) TABLET BY MOUTH IN THE MORNING budesonide-formoterol (SYMBICORT) 80-4.5 mcg/actuation inhaler Inhale 2 Puffs as instructed twice daily. omeprazole (PRILOSEC) 20 mg capsule Take 1 capsule by mouth once daily. pravastatin (PRAVACHOL) 20 mg tablet Take 1 tablet by mouth once daily. meloxicam (MOBIC) 15 mg tablet Take 0.5 tablets by mouth twice daily. (Patient taking differently: Take 7.5 mg by mouth once daily.) cholecalciferol, Vitamin D3, (VITAMIN D3) 1,250 mcg (50,000 unit) cap capsule Take 1 capsule by mouth one time a week. citalopram hydrobromide (CELEXA ORAL) Take 30 mg by mouth once daily. lisinopril (ZESTRIL, PRINIVIL) 20 mg tablet Take 20 mg by mouth once daily. albuterol HFA (PROAIR HFA) 90 mcg/actuation inhaler Inhale 2 Puffs as instructed every 6 hours as needed. baclofen 15 mg tablet Take 1 tablet (15 mg) by mouth three times a day for 14 days. (Patient not taking: Reported on 10/04/2023) LORazepam (ATIVAN) 0.5 mg (Patient not taking: Reported on 10/04/2023) HUMIRA,CF, PEN 40 mg/0.4 mL pen kit Inject 40 mg subcutaneously one time a week. Mondays Patient Entered Questionnaires 07/26/2023 Spine Questions Pain Location: Leg Pain Duration: 3-6 months Pain over last 6 months: Every day or nearly every day in the past 6 months Symptoms from neck/cervical spine: No Employment Status: Retired Involved in law suit/legal claim: No PROMIS Score Percentiles 07/26/2023 Physical Health Physical Function Percentile 2 Sleep Percentile 27* Fatigue Percentile 10 Pain Interference Percentile 2 07/26/2023 PROMIS SOCIAL ROLE SCORE Social Role Satisfaction Percentile 14 07/26/2023 PROMIS Global Health Scale Physical Health Percentile 10 Mental Health Percentile 13 Percentiles provide an indication of how the patient's score ranks in relation to the general population. Higher percentile rankings indicate better function/quality of life. 50th percentile is the average of the general population and indicates half of respondents had a worse score. Depression Screenin07/26/2023 PHQ-9 Score 7 07/26/2023 PHQ-9 Self-harm Question Question 9 Not at all PHQ-9 Self-Harm (Item 9) response options: 0 Not at all 1 Several days 2 More than half the days 3 Nearly every day PHQ-9 Levels: 0-4 No to mild depression 5-9 Mild depression 10-14 Moderate depression 15-19 Moderately severe depression 20-27 Severe depression OBJECTIVE: PHYSICAL EXAM BP 100/62 Pulse 100 Constitutional Appears stated age, pleasant Psychiatric Alert and oriented to person, place, and time Normal speech and content. Appropriate mood and affect Pulmonary Breathing comfortably on room air Neurologic Cranial nerves are intact as per the following exam: II-vision grossly normal, PERRLA, III/IV/- EOMI, VII-hearing grossly normal, V-clench jaw, VII- raise eyebrows bilaterally; smile/frown intact and symmetric, able to bar teeth and puff out cheeks, XII- Able to protrude tongue and move it side to side, IX/X- swallow intact; says Ah Deep Tendon Reflexes Right Left Biceps 2+ 2+ Brachioradialis 2+ 2+ Patellar 2+ 2+ Rodriguez's Reflexes negative Sensation: sparing of sensation in the webspace between the first two toes on the right. This would suggest a peroneal nerve etiology Heel-to-Toe Test (Tandem Gait) within normal limits Musculoskeletal Manual Muscle Testing Right Left Shoulder Abduction (C5) 5/5 5/5 Elbow Flexion 5/5 5/5 Elbow Extension 5/5 5/5 Wrist Extension (C6) 5/5 5/5 Finger Extension (C7) 5/5 5/5 Finger Abduction (C8) 5/5 5/5 Hip Flexion 5/5 5/5 Knee Extension 5/5 5/5 Dorsiflexion (L4) 5/5 5/5 First Toe Extension (L5) 5/5 5/5 Plantar Flexion (S1) 5/5 5/5 Right eversion weakness Skin No rashes, bruising or other skin lesions. No visible edema DATA REVIEW [facility] records independently reviewed Imaging and outside records independently reviewed and findings are as follows: MRI L-spine (06/16/23): subcentimeter grade 1 anterolisthesis at L4-L5 contributing to moderate/severe degree of central canal and moderate degree bilateral foraminal stenosis greater right side. Alignment: Subcentimeter grade 1 anterolisthesis L4-5 level and mild degree of dextrocurvature distal thoracic-upper lumbar spine Bone marrow signal/fracture: No evidence of pathologic marrow infiltration. No evidence of acute or prior fracture. Degenerative disc/endplate degenerative changes most prominent L2-3 level Conus: The conus is within normal limits of signal intensity and morphology. Spinal cord terminates at the T12-L1 level. Cauda equina nerve roots appear unremarkable Paraspinal soft tissues: Paraspinal soft tissues are within normal limits. Lower thoracic spine: Visualized lower thoracic canal and foramina are patent. L1-L2: Canal and foramina are patent. No disc abnormalities L2-L3: Mild degree of degenerative central canal and foraminal narrowing secondary posterior endplate hypertrophy eccentric towards left side and posterior hypertrophic changes L3-L4: Mild degree of degenerative central canal and foraminal narrowing secondary posterior endplate hypertrophy and posterior hypertrophic changes L4-L5: Subcentimeter grade 1 anterolisthesis, posterior endplate upper/disc complex and hypertrophy the posterior elements contributing to moderate/severe degree of central canal and moderate degree bilateral foraminal stenosis greater right side. L5-S1: Partial sacralization. Bilateral facet joint arthropathy Sacrum and iliac wings: The visualized sacrum and iliac wings are within normal limits. 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 To recall, preoperative symptoms included with right lower extremity pain and, to a much lesser extent, back and left lower extremity pain. She endorsed weakness of right foot x2 months. I initially though that these symptoms likely arose from subcentimeter grade 1 anterolisthesis at L4-L5 contributing to moderate/severe degree of central canal and moderate degree bilateral foraminal stenosis greater right side. However, the weakness was localized to EVERSION only; moreover, exam demonstrates sparing of sensation in the webspace between the first two toes on the right. This would suggest a peroneal nerve etiology. EMG suggested right L5 radiculopathy without a peroneal neuropathy so we proceeded with spinal surgery Her right-sided symptoms and weakness completely resolved after surgery; however, just two weeks ago, she reported new onset left leg pain: buttocks, lateral thigh, and leg. Recommend Physical therapy for the left leg pain Hip x-rays I counseled the patient on the deleterious effects of the current smoking usage (1 packs/ day). We discussed, at length, the importance of smoking cessation for at least three months before surgery and indefinitely after surgery. A nicotine test will be ordered prior to surgery. Patient understands that the scheduled operation may be canceled if smoking continues. Follow up in my clinic in 6 weeks documented in this encounter [facility] 09-22-2023 Telephone encounter Note Chart reviewed, including most recent office visit note. PDMP reviewed. Patient with upcoming appt with . Refills of pain medication and steroid dose pack sent to patient's pharmacy on file until she is able to discuss ongoing pain with surgeon at next follow-up appt. Patient's request for medication is as follows: Requested Prescriptions Signed Prescriptions Disp Refills traMADol (ULTRAM) 50 mg tablet 28 tablet 0 Sig: Take 1 tablet by mouth every 6 hours as needed for pain (For acute post operative pain) for up to 7 days. Authorizing Provider: VERONIQUE WESTBROOK baclofen 15 mg tablet 42 tablet 0 Sig: Take 1 tablet (15 mg) by mouth three times a day for 14 days. Authorizing Provider: VERONIQUE WESTBROOK methylPREDNISolone (MEDROL, ALEX,) 4 mg Dose-Pack 21 tablet 0 Sig: As instructed per package Authorizing Provider: VERONIQUE WESTBROOK Prescription(s) as above. Please process accordingly. Veronique Westbrook APRN.CNP [facility] 09-22-2023 Miscellaneous Notes Chart reviewed, including most recent office visit note. PDMP reviewed. Patient with upcoming appt with . Refills of pain medication and steroid dose pack sent to patient's pharmacy on file until she is able to discuss ongoing pain with surgeon at next follow-up appt. Patient's request for medication is as follows: Requested Prescriptions Signed Prescriptions Disp Refills traMADol (ULTRAM) 50 mg tablet 28 tablet 0 Sig: Take 1 tablet by mouth every 6 hours as needed for pain (For acute post operative pain) for up to 7 days. Authorizing Provider: VERONIQUE WESTBROOK baclofen 15 mg tablet 42 tablet 0 Sig: Take 1 tablet (15 mg) by mouth three times a day for 14 days. Authorizing Provider: VERONIQUE WESTBROOK methylPREDNISolone (MEDROL, ALEX,) 4 mg Dose-Pack 21 tablet 0 Sig: As instructed per package Authorizing Provider: VERONIQUE WESTBROOK Prescription(s) as above. Please process accordingly. Veronique Westbrook APRN.NED NEUROSURGERY CARE COORDINATION [facility] QUICK NOTE Chart reviewed. Patient S/P Right-Sided MIS Approach for Bilateral L4/5 Hemilaminotomies for Bilateral Decompression with Dr. Lorenzo on 08/24. Noted first post-op appointment with HEMANT dated 09/07. Noted second post-op appointment scheduled with Dr. Lorenzo for 10/03. Returned call to patient at phone number below, verified name and , discussed below, states left hip pain started immediately after surgery, states 8/10 intermittent sharp left hip pain, states discussed this with HEMANT during first post-op appointment, states left hip pain improves after walking, states laying or sitting down for any length of time causes the pain, states "is afraid to stand up because of the pain", states has previously taken Tramadol and states Tramadol helped with pain, states needs refill, states has been alternating between taking Flexeril & Baclofen per Dr. Lorenzo, states needs refills, states taking Meloxicam as prescribed/prn, states above medications seem to help, discussed use of OTC Tylenol prn, discussed use of ice and heat prn, states has been using heat at times and states heat is helpful, asking if any other recommendations at this time, pharmacy verified, informed message will be sent to NSGY team with Dr. Lorezno regarding this and that response will be relayed afterwards, states understanding. Routing to NSGY team. CONRADO Farah, RN September 22, 2023 4:40 PM Call received for Martha Lroenzo MD regarding Dima Nice 1960. Caller: Self Patient Identified by Name and : Yes Was permission obtained from patient ? Yes Reason for Call: The patient called to ask to speak with Dr. Lorenzo's nurse regarding new pain in her left hip. She is unable to walk or move around and is asking if there is any medication that could help. Last Office Visit: 07/13/2023 Next scheduled appointment: 10/04/2023 Best number to reach caller: [phone] Best time to reach caller: Any Is it OK to leave a detailed voice message? Yes Ashli Gonzalez documented in this encounter [facility] 09-22-2023 Telephone encounter Note NEUROSURGERY CARE COORDINATION [facility] QUICK NOTE Chart reviewed. Patient S/P Right-Sided MIS Approach for Bilateral L4/5 Hemilaminotomies for Bilateral Decompression with Dr. Lorenzo on 08/24. Noted first post-op appointment with HEMANT dated 09/07. Noted second post-op appointment scheduled with Dr. Lorenzo for 10/03. Returned call to patient at phone number below, verified name and , discussed below, states left hip pain started immediately after surgery, states 8/ intermittent sharp left hip pain, states discussed this with HEMANT during first post-op appointment, states left hip pain improves after walking, states laying or sitting down for any length of time causes the pain, states "is afraid to stand up because of the pain", states has previously taken Tramadol and states Tramadol helped with pain, states needs refill, states has been alternating between taking Flexeril & Baclofen per Dr. Lorenzo, states needs refills, states taking Meloxicam as prescribed/prn, states above medications seem to help, discussed use of OTC Tylenol prn, discussed use of ice and heat prn, states has been using heat at times and states heat is helpful, asking if any other recommendations at this time, pharmacy verified, informed message will be sent to NSGY team with Dr. Lorenzo regarding this and that response will be relayed afterwards, states understanding. Routing to NSGY team. CONRADO Farah, RN September 22, 2023 4:40 PM [facility] 09-22-2023 Telephone encounter Note Call received for Martha Lorenzo MD regarding Dima Nice 1960. Caller: Self Patient Identified by Name and : Yes Was permission obtained from patient ? Yes Reason for Call: The patient called to ask to speak with Dr. Lorenzo's nurse regarding new pain in her left hip. She is unable to walk or move around and is asking if there is any medication that could help. Last Office Visit: 07/13/2023 Next scheduled appointment: 10/04/2023 Best number to reach caller: [phone] Best time to reach caller: Any Is it OK to leave a detailed voice message? Yes Ashli Gonzalez [facility] 09-12-2023 Telephone encounter Note Called patient to schedule colonoscopy. Spoke with patient who stated now is not a good time to schedule as she has some personal issues going on and other medical concerns. Advised patient she can call our office to schedule when ready and if referral isn't we can reopen referral. Patient verbalized understanding. [facility] 09-12-2023 Miscellaneous Notes Called patient to schedule colonoscopy. Spoke with patient who stated now is not a good time to schedule as she has some personal issues going on and other medical concerns. Advised patient she can call our office to schedule when ready and if referral isn't we can reopen referral. Patient verbalized understanding. Pt. Called, stating that she would like office to call her back in a couple of months as she is currently dealing with spinal stenosis. documented in this encounter [facility] 09-09-2023 Telephone encounter Note The physical therapy order was sent via fax to #[phone] as per the patient's request. Ashli Gonzalez [facility] 09-09-2023 Miscellaneous Notes The physical therapy order was sent via fax to #[phone] as per the patient's request. Ashli Gonzalez documented in this encounter [facility] 09-08-2023 Note HNO ID: [id number] Author: SANCHEZ POOLE PA-C Service: ? Author Type: Physician Continuous Process Machine Operator Type: Progress Notes Filed: 09/08/2023 11:43 Note Text: SPINE SURGERY FOLLOW UP This is an in-person visit. SERVICE DATE: 09/08/2023 SURGERY DATE: 08/25/23 Dima Nice is seen for 2 week post operative follow up s/p right L4/[address] Lorenzo. Patient is ding well though the pain in her right leg has returned which she relates to being out of pain medications. No new numbness or weakness. No issues with her incision. Patient has no other acute complaints or concerns at this time. PAIN EVALUATION 09/08/2023 1127 Pain Level: 7 Pain Location: Hip-Left right hip, legs Patient Entered Questionnaires 07/26/2023 Spine Questions Pain Location: Leg Pain Duration: 3-6 months Pain over last 6 months: Every day or nearly every day in the past 6 months Symptoms from neck/cervical spine: No Employment Status: Retired Involved in law suit/legal claim: No PROMIS Score Percentiles 07/26/2023 Physical Health Physical Function Percentile 2 Sleep Percentile 27* Fatigue Percentile 10 Pain Interference Percentile 2 07/26/2023 PROMIS SOCIAL ROLE SCORE Social Role Satisfaction Percentile 14 07/26/2023 PROMIS Global Health Scale Physical Health Percentile 10 Mental Health Percentile 13 Percentiles provide an indication of how the patient's score ranks in relation to the general population. Higher percentile rankings indicate better function/quality of life. 50th percentile is the average of the general population and indicates half of respondents had a worse score. PHYSICAL EXAM: BP 129/81 Pulse 88 General: Awake, alert and in no acute distress. Patient is pleasant and cooperative Motor: LE Hip Flex Knee Flex Knee Extend Plantarflex Dorsiflex R 5/5 5/5 5/5 5/5 5/5 L 5/5 5/5 5/5 5/5 5/5 Wound: Appropriate post operative wound located in lower back. Incision appears well approximated with glue. No signs of erythema, fluctuance, blood/mucoid discharge, wound appears CDI. DATA REVIEW [facility] records independently reviewed ASSESSMENT/PLAN (M54.16) Radiculopathy, lumbar region (primary encounter diagnosis) Dima Nice is seen for 2 week post operative follow up s/p right L4/[address] Lorenzo. - Patient doing well - Will place orders for physical therapy - Will refill pain medications - Discussed increasing activity as tolerated - Follow up as previously scheduled SIGNATURE: Sanchez Poole PA-C PATIENT NAME: Dima Nice DATE: September 08, 2023 TIME: 11:27 AM PAGER: [facility] 09-08-2023 History of Present illness Narrative Images from the original note were not included. SPINE SURGERY FOLLOW UP This is an in-person visit. SERVICE DATE: 09/08/2023 SURGERY DATE: 08/25/23 Dima Nice is seen for 2 week post operative follow up s/p right L4/[address] Lorenzo. Patient is ding well though the pain in her right leg has returned which she relates to being out of pain medications. No new numbness or weakness. No issues with her incision. Patient has no other acute complaints or concerns at this time. PAIN EVALUATION 09/08/2023 1127 Pain Level: 7 Pain Location: Hip-Left right hip, legs Patient Entered Questionnaires 07/26/2023 Spine Questions Pain Location: Leg Pain Duration: 3-6 months Pain over last 6 months: Every day or nearly every day in the past 6 months Symptoms from neck/cervical spine: No Employment Status: Retired Involved in law suit/legal claim: No PROMIS Score Percentiles 07/26/2023 Physical Health Physical Function Percentile 2 Sleep Percentile 27* Fatigue Percentile 10 Pain Interference Percentile 2 07/26/2023 PROMIS SOCIAL ROLE SCORE Social Role Satisfaction Percentile 14 07/26/2023 PROMIS Global Health Scale Physical Health Percentile 10 Mental Health Percentile 13 Percentiles provide an indication of how the patient's score ranks in relation to the general population. Higher percentile rankings indicate better function/quality of life. 50th percentile is the average of the general population and indicates half of respondents had a worse score. PHYSICAL EXAM: BP 129/81 Pulse 88 General: Awake, alert and in no acute distress. Patient is pleasant and cooperative Motor: LE Hip Flex Knee Flex Knee Extend Plantarflex Dorsiflex R 5/5 5/5 5/5 5/5 5/5 L 5/5 5/5 5/5 5/5 5/5 Wound: Appropriate post operative wound located in lower back. Incision appears well approximated with glue. No signs of erythema, fluctuance, blood/mucoid discharge, wound appears CDI. DATA REVIEW [facility] records independently reviewed ASSESSMENT/PLAN (M54.16) Radiculopathy, lumbar region (primary encounter diagnosis) Dima Nice is seen for 2 week post operative follow up s/p right L4/[address] Lorenzo. - Patient doing well - Will place orders for physical therapy - Will refill pain medications - Discussed increasing activity as tolerated - Follow up as previously scheduled SIGNATURE: Sanchez Poole PA-C PATIENT NAME: Dima Nice DATE: September 08, 2023 TIME: 11:27 AM PAGER: documented in this encounter [facility] 09-05-2023 Telephone encounter Note Prescription Request: Last medication check: 05/26/2023 Last physical exam: 09/30/2021 Last completed appointment: 08/16/2023 Next scheduled appointment: none Last date of refill on this medication: 03/16/2023 [facility] 09-05-2023 Miscellaneous Notes Prescription Request: Last medication check: 05/26/2023 Last physical exam: 09/30/2021 Last completed appointment: 08/16/2023 Next scheduled appointment: none Last date of refill on this medication: 03/16/2023 documented in this encounter [facility] 08-29-2023 Telephone encounter Note NEUROSURGERY CARE COORDINATION [facility] POST-OP FOLLOW UP TELEPHONE CALL Called patient at home/mobile phone number and patient identified by name and ? Yes. Patient is 4 days post-op from Right-Sided MIS Approach for Bilateral L4/5 Hemilaminotomies for Bilateral Decompression with Dr. Lorenzo. Pain is well controlled with pain medication Roxicodone and muscle relaxers Flexeril & Baclofen, noted both ordered per Dr. Lorenzo, and NSAID Toradol, also noted Colace ordered per Dr. Lorenzo, discussed taking all medications as prescribed/prn, states only taking one muscle relaxer at this time, discussed use of ice prn and benefits of using ice after surgery, states overall doing great, instructed to contact office as needed here, states understanding. Incision is clean, dry, and with absorbable sutures, states GREGG, educated on s/s of infection, instructed to contact office if any s/s of infection noticed, denies having any s/s of infection at this time. Activity: walking well unassisted. Additional concerns: denies. Follow up appointment scheduled for: 09/07 at 1140 with HEMANT as an in office appointment, patient aware. All questions answered. States understanding to above. Denies having any further questions or concerns at this time. Instructed to call office as needed, office phone number provided. CONRADO Farah, RN August 29, 2023 1:30 PM [facility] 08-29-2023 Miscellaneous Notes NEUROSURGERY CARE COORDINATION [facility] POST-OP FOLLOW UP TELEPHONE CALL Called patient at home/mobile phone number and patient identified by name and ? Yes. Patient is 4 days post-op from Right-Sided MIS Approach for Bilateral L4/5 Hemilaminotomies for Bilateral Decompression with Dr. Lorenzo. Pain is well controlled with pain medication Roxicodone and muscle relaxers Flexeril & Baclofen, noted both ordered per Dr. Lorenzo, and NSAID Toradol, also noted Colace ordered per Dr. Lorenzo, discussed taking all medications as prescribed/prn, states only taking one muscle relaxer at this time, discussed use of ice prn and benefits of using ice after surgery, states overall doing great, instructed to contact office as needed here, states understanding. Incision is clean, dry, and with absorbable sutures, states GREGG, educated on s/s of infection, instructed to contact office if any s/s of infection noticed, denies having any s/s of infection at this time. Activity: walking well unassisted. Additional concerns: denies. Follow up appointment scheduled for: 09/07 at 1140 with HEMANT as an in office appointment, patient aware. All questions answered. States understanding to above. Denies having any further questions or concerns at this time. Instructed to call office as needed, office phone number provided. CONRADO Farah, RN August 29, 2023 1:30 PM documented in this encounter [facility] 08-28-2023 Telephone encounter Note Received message patient had concerns about taking flexiril and baclofen together. Discussed the muscle relaxers are frequently prescribed together and it is ok to take together. They were both also listed on d/c instructions. Discussed if she should have any adverse reactions she make her provider aware and/or go to the ED depending on severity. Edinson Stone APRN, CLASSROOM TECHNOLOGY TECHNICIAN [facility] Work Phone: 08-28-2023 Miscellaneous Notes Received message patient had concerns about taking flexiril and baclofen together. Discussed the muscle relaxers are frequently prescribed together and it is ok to take together. They were both also listed on d/c instructions. Discussed if she should have any adverse reactions she make her provider aware and/or go to the ED depending on severity. Edinson Stone APRN, CLASSROOM TECHNOLOGY TECHNICIAN documented in this encounter [facility] 08-25-2023 Note HNO ID: [id number] Author: MARTHA LORENZO MD Service: Neurosurgery Author Type: Physician Type: Progress Notes Filed: 08/28/2023 21:19 Note Text: I called the patient to report that she is doing extremely well after surgery. She is very grateful for the operation. She actually sent a my chart message reporting how great she feels. [facility] 08-25-2023 Note Formatting of this n ote might be different from the original. Tylenol next dose due 6 pm today, 08/25/2023 as needed for pain [facility] 08-25-2023 Miscellaneous Notes Tylenol next dose due 6 pm today, 08/25/2023 as needed for pain S/P L4/5 right MIS lami Motor: 5/5 BLEs Sensation intact to LT in BLEs No calixto No drain Skin closed with glue. Patient to discharge home once recovered. documented in this encounter [facility] 08-25-2023 Note HNO ID: [id number] Author: EDINSON HALE PA-C Service: Neurosurgery Author Type: Physician Continuous Process Machine Operator Type: Plan of Care Filed: 08/25/2023 10:15 Note Text: S/P L4/5 right MIS lami Motor: 5/5 BLEs Sensation intact to LT in BLEs No calixto No drain Skin closed with glue. Patient to discharge home once recovered. [facility] 08-25-2023 Plan of care note S/P L4/5 right MIS lami Motor: 5/5 BLEs Sensation intact to LT in BLEs No calixto No drain Skin closed with glue. Patient to discharge home once recovered. [facility] Work Phone: 08-25-2023 Note HNO ID: [id number] Author: ISIDRO NOLAND RN Service: Nursing Author Type: Registered Nurse Type: Nursing Progress Note Filed: 08/25/2023 09:46 Note Text: Other: 0935: Pt arrived to PACU with OR team on SFM 8 lpm. VSS. See NPR for assessment. [facility] 08-25-2023 Nurse Note Other: 0935: Pt arrived to PACU with OR team on SFM 8 lpm. VSS. See NPR for assessment. [facility] 08-25-2023 Nurse Note Other: 0935: Pt arrived to PACU with OR team on SFM 8 lpm. VSS. See NPR for assessment. documented in this encounter [facility] 08-25-2023 Note HNO ID: [id number] Author: LAURA ALANIS APRN.CHUTE TAPPER Service: Anesthesiology Author Type: Nurse Sign Painter Type: Anesthesia Procedure Notes Filed: 08/25/2023 08:18 Note Text: ANESTHESIOLOGY PROCEDURE NOTE Airway General Information Procedure Start Time/Medication Administration: 08/25/2023 7:51 AM Procedure End Time: 08/25/2023 8:17 AM Patient location during procedure: OR Timeout Performed Pre-procedure: timeout performed Consent Obtained: Yes Patient identity confirmed: arm band, care service desk team lead and patient Staffing CHUTE TAPPER: Laura Alanis APRN.CHUTE TAPPER Performed by: CHUTE TAPPER Indications and Patient Condition Indications for airway management: anesthesia Preoxygenated: yes anesthesia circuit Patient position: sniffing Method: asleep Cricoid Pressure: No Manual In-Line Stabilization: No Difficult Mask: No Final Airway Details Final airway type: endotracheal airway Final Endotracheal Airway: ETT Cuffed: yes Successful intubation technique: video laryngoscopy Devices used: Glidescope Endotracheal tube insertion site: oral Blade size: #3 ETT size (mm): 7.5 Measured from: lips Measurement (cm): 22 Placement verified by: chest auscultation and capnometry Cormack-Lehane Classification: grade I - full view of glottis Number of attempts at approach: 1 Airway not difficult SIGNATURE: Laura Alanis APRN.CHUTE TAPPER PATIENT NAME: Dima Nice DATE: August 25, 2023 TIME: 8:17 AM CSN: [id number] [facility] 08-25-2023 Hospital Discharge instructions Martha Lorenzo MD - 08/25/2023 8:11 AM EDT Your surgical site is covered with a dressing or BAND-AID, which can be removed on postoperative day 2 (08/25/23). After the dressing/ BAND-AID is removed, you may shower. Of note, your incision underneath the dressing/ BAND-AID is closed with a topical skin adhesive ("incision glue"), which can get wet. The incision glue will begin to self-dissolve after at least 14 days following surgery. Please do not peel off the topical skin adhesive, which will dissolve in the next 10-14 days. Your surgical site has been injected with "numbing" medication, that will dissipate after 24-72 hours. After this time, the inflammation from surgery may cause an uncomfortable flare up of pain. In order to help with this postoperative pain, you have been prescribed a short-course of opioids. Because opioids cause constipation, a stool softener has also been prescribed. If you are uncomfortable with opioids, please feel free to take your prescription of ketorlac, a strong NonSteroidal AntiInflammatory Drug (NSAID). Muscle relaxants and acetaminophen are always encouraged. No heavy lifting over 10-15 pounds, or approximately 2 gallons of milk. Please limit movements with aggressive bending and twisting, although moderate-level of activity is acceptable. External orthosis is not necessary. documented in this encounter [facility] 08-25-2023 Surgery Surgical operation note OPERATIVE/PROCEDURE REPORT LOG ID: [id number] SURGERY/PROCEDURE DATE: 08/25/2023 INCISION/PROCEDURE START TIME: 8:24 AM INCISION CLOSE/PROCEDURE END TIME: 9:21 AM SURGEON(S)/PROCEDURALIST(S) AND ASSEMBLER BILLIARD TABLE(S): Surgeon(s) and Role: * Martha Lorenzo MD - Primary Physician Continuous Process Machine Operator: Edinson Hale PA-C SURGERY/PROCEDURE(S): Right-sided minimally-invasive approach to bilateral L4-L5 hemilaminotomies for bilateral decompression C-arm fluoroscopy with independent interpretation Microscope with microdissection techniques ANESTHESIA: General SURGERY/PROCEDURE DETAILS: The patient was brought to the operative room where general anesthesia was induced. Preoperative antibiotics were administered. The patient was positioned prone on the operating room table. All pressure points were appropriately padded. A preoperative timeout was carried out with the entire operating room staff to verify the correct patient, surgical site, and procedure. The surgical site was then sterilely prepped and draped. After this, the midline palpated along the spinous processes was marked. A parallel line was then marked 1 cm to the right of midline. Placement of the percutaneous needle at the spinal level of interest was confirmed with C-arm fluoroscopy. An incision centered around the needle was marked. The planned incision was opened sharply with a #15 blade. The bovie cautery incised the deep dermis and adipose. The minimally-invasive tubular system dilated over the L4-L5 disc space. The final dilation was attached to the articulating arm. The correct position was confirmed with C-arm fluoroscopy, and the correct level was verified with PARKER GALINDO MD . The microscope was brought into the surgical field. The bovie cautery removed the muscle over the respective interspace. The highspeed soto removed the right caudal L4 and rostral L5 lamina. The ligamentum flavum was pealed off with the Kerrison rongeurs. The ipsilateral descending and exiting nerve roots were completely free. Attention was directed to the contralateral decompression. The tubular dilator was then medialized. The undersurface of the spinous process and left L4-L5 lamina was undercut with the highspeed soto. The ligamentum flavum was pealed off with the Kerrison rongeurs. The left descending and exiting nerve roots were completely free. The operative field was thoroughly inspected for any residual stenosis. After confirming adequate decompression, the wound was irrigated copiously with normal saline. Hemostasis was reinforced with hemostatic matrix. Methylprednisolone injectable suspension was applied into the surgical cavity. The wound was closed in successive layers with interrupted sutures and Monocryl for the skin. At the end of the procedure all counts were correct. At the conclusion of the operation, the patient was positioned supine on a hospital bed. PRE-OP/PRE-PROCEDURE DIAGNOSIS: spinal stenosis with neurogenic claudication POST-OP/POST-PROCEDURE DIAGNOSIS: Same as Preop ESTIMATED BLOOD LOSS: 5 mls SPECIMENS: None IMPLANTABLE DEVICES: NONE DRAINS: None COMPLICATIONS: None CLOSURE TECHNIQUE: Primary PARTICIPATION IN SURGERY/PROCEDURE: No qualified resident/fellow was available. Continuous Process Machine Operator LORY assisted with opening, decompression, and closure SIGNATURE: Martha Lorenzo MD PATIENT NAME: Dima Nice DATE: August 25, 2023 TIME: 1:48 PM [facility] 08-25-2023 Surgical operation note OPERATIVE/PROCEDURE REPORT LOG ID: [id number] SURGERY/PROCEDURE DATE: 08/25/2023 INCISION/PROCEDURE START TIME: 8:24 AM INCISION CLOSE/PROCEDURE END TIME: 9:21 AM SURGEON(S)/PROCEDURALIST(S) AND ASSEMBLER BILLIARD TABLE(S): Surgeon(s) and Role: * Martha Lorenzo MD - Primary Physician Continuous Process Machine Operator: Edinson Hale PA-C SURGERY/PROCEDURE(S): Right-sided minimally-invasive approach to bilateral L4-L5 hemilaminotomies for bilateral decompression C-arm fluoroscopy with independent interpretation Microscope with microdissection techniques ANESTHESIA: General SURGERY/PROCEDURE DETAILS: The patient was brought to the operative room where general anesthesia was induced. Preoperative antibiotics were administered. The patient was positioned prone on the operating room table. All pressure points were appropriately padded. A preoperative timeout was carried out with the entire operating room staff to verify the correct patient, surgical site, and procedure. The surgical site was then sterilely prepped and draped. After this, the midline palpated along the spinous processes was marked. A parallel line was then marked 1 cm to the right of midline. Placement of the percutaneous needle at the spinal level of interest was confirmed with C-arm fluoroscopy. An incision centered around the needle was marked. The planned incision was opened sharply with a #15 blade. The bovie cautery incised the deep dermis and adipose. The minimally-invasive tubular system dilated over the L4-L5 disc space. The final dilation was attached to the articulating arm. The correct position was confirmed with C-arm fluoroscopy, and the correct level was verified with PARKRE GALINDO MD . The microscope was brought into the surgical field. The bovie cautery removed the muscle over the respective interspace. The highspeed soto removed the right caudal L4 and rostral L5 lamina. The ligamentum flavum was pealed off with the Kerrison rongeurs. The ipsilateral descending and exiting nerve roots were completely free. Attention was directed to the contralateral decompression. The tubular dilator was then medialized. The undersurface of the spinous process and left L4-L5 lamina was undercut with the highspeed soto. The ligamentum flavum was pealed off with the Kerrison rongeurs. The left descending and exiting nerve roots were completely free. The operative field was thoroughly inspected for any residual stenosis. After confirming adequate decompression, the wound was irrigated copiously with normal saline. Hemostasis was reinforced with hemostatic matrix. Methylprednisolone injectable suspension was applied into the surgical cavity. The wound was closed in successive layers with interrupted sutures and Monocryl for the skin. At the end of the procedure all counts were correct. At the conclusion of the operation, the patient was positioned supine on a hospital bed. PRE-OP/PRE-PROCEDURE DIAGNOSIS: spinal stenosis with neurogenic claudication POST-OP/POST-PROCEDURE DIAGNOSIS: Same as Preop ESTIMATED BLOOD LOSS: 5 mls SPECIMENS: None IMPLANTABLE DEVICES: NONE DRAINS: None COMPLICATIONS: None CLOSURE TECHNIQUE: Primary PARTICIPATION IN SURGERY/PROCEDURE: No qualified resident/fellow was available. Continuous Process Machine Operator PA assisted with opening, decompression, and closure SIGNATURE: Martha Lorenzo MD PATIENT NAME: Dima Nice DATE: August 25, 2023 TIME: 1:48 PM documented in this encounter [facility] 08-24-2023 History and physical note Images from the original note were not included. UPDATED HISTORY AND PHYSICAL EXAMINATION SERVICE DATE: 08/25/2023 SERVICE TIME: 7:00 AM PHYSICAL EXAM MUST BE COMPLETED ON ADMISSION The History and Physical (completed in the past 30 days) has been reviewed and the patient has been examined. The contents accurately reflect the patient's condition with the following additions or revisions since the H&P was completed. Examination indicates no changes. This H&P can be found in the attached. SIGNATURE: Martha Lorenzo MD PATIENT NAME: Dima Nice DATE: August 25, 2023 TIME: 7:00 AM VIRTUAL SPINE SURGERY ESTABLISHED VISIT DATE OF SERVICE: 08/03/2023 DATE OF LAST VISIT: 07/13/2023 Virtual connection via: Zoom I have communicated my name and active licensure. The patient's identity and physical location were verified at the time of this visit. Either the patient or their legal treasury representative has been informed of the risks and benefits of -- and alternatives to -- treatment through a remote evaluation and consents to proceed with the evaluation remotely. SPINE SURGERY OUTPATIENT CLINIC VISIT SERVICE DATE: 07/13/2023 PCP: Casey Chang MD REFERRING PROVIDER: Gia Fernandes PA-C Consult requested for an opinion regarding the evaluation and treatment of a spinal pathology. My final impression and recommendations will be communicated back to the requesting physician by way of the shared medical record or letter via US mail. 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 To a much lesser extent, she reports left sided pain in the same distribution to a much lower extent. She reports right foot drop for two months. She reports low back pain much more mild (VAS 6/10). Lumbar injections three months ago provided only transient relief. 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 within the past 6 months EMG (07/28/23): right L5 radiculopathy without a peroneal neuropathy Extensive electrodiagnostic examination of the right lower extremity and additional nerve conduction studies of the left lower extremity reveals the following changes: . 1. Absent sural sensory response bilaterally is likely technical in nature and secondary to severe LE edema and body habitus. Thus, no definite evidence of a large fiber polyneuropathy. Clinical correlation is recommended. 2. Chronic motor axon loss changes consistent with intraspinal canal lesions/process affecting the right L5 root or segment (i.e, motor radiculopathy), mild in degree electrically, being accompanied by evidence of active or ongoing motor fiber loss in right EDB muscle. Limited contralateral NEE revealed no significant abnormalities. 3. No evidence of a right peroneal neuropathy. Bone Mineral Density ACTIVE PROBLEM LIST High Cholesterol Hypertension Vitamin D Deficiency PAST MEDICAL HISTORY Diagnosis Date Allergies Anxiety Arthritis Depression Gout Hiatal hernia High cholesterol Hydradenitis Hypertension Lyme disease triggered severe arthritis Vitamin D deficiency PAST SURGICAL HISTORY Procedure Laterality Date APPENDECTOMY HX BIOPSY BREAST benign COLONOSCOPY SCREENING 30 years ago per patient HYSTERECTOMY FAMILY HISTORY Problem Relation Age of Onset Immune Deficiency Mother Celiac Disease Father Heart Father Diabetes Paternal Grandmother Celiac Disease Other many family members Colon Cancer No Family History Social History Tobacco Use Smoking status: Every Day Packs/day: 1 Types: Cigarettes Start date: 12/25/1973 Smokeless tobacco: Never Vaping Use Vaping Use: Never used Substance Use Topics Alcohol use: Yes Alcohol/week: 3.0 standard drinks of alcohol Types: 3 Glasses of Wine (5oz) per week Comment: couple times/week Drug use: Never Comment: has medical marijuana card ALLERGIES Allergen Reactions Codeine Other: See Comments Mind changes MEDICATIONS: LORazepam (ATIVAN) 0.5 mg rosuvastatin (CRESTOR) 40 mg tablet Take 40 mg by mouth once daily. allopurinol (ZYLOPRIM) 300 mg tablet TAKE 1/2 (ONE-HALF) TABLET BY MOUTH IN THE MORNING budesonide-formoterol (SYMBICORT) 80-4.5 mcg/actuation inhaler Inhale 2 Puffs as instructed twice daily. HUMIRA,CF, PEN 40 mg/0.4 mL pen kit omeprazole (PRILOSEC) 20 mg capsule Take 1 capsule by mouth once daily. pravastatin (PRAVACHOL) 20 mg tablet Take 1 tablet by mouth once daily. meloxicam (MOBIC) 15 mg tablet Take 0.5 tablets by mouth twice daily. cholecalciferol, Vitamin D3, (VITAMIN D3) 1,250 mcg (50,000 unit) cap capsule Take 1 capsule by mouth one time a week. cyclobenzaprine (FLEXERIL) 10 mg tablet Take 1 tablet by mouth three times daily as needed for muscle spasm. citalopram hydrobromide (CELEXA ORAL) Take 30 mg by mouth once daily. lisinopril (ZESTRIL, PRINIVIL) 20 mg tablet Take 20 mg by mouth once daily. albuterol HFA (PROAIR HFA) 90 mcg/actuation inhaler Inhale 2 Puffs as instructed every 6 hours as needed. Patient Entered Questionnaires 07/26/2023 Spine Questions Pain Location: Leg Pain Duration: 3-6 months Pain over last 6 months: Every day or nearly every day in the past 6 months Symptoms from neck/cervical spine: No Employment Status: Retired Involved in law suit/legal claim: No PROMIS Score Percentiles 07/26/2023 Physical Health Physical Function Percentile 2 Sleep Percentile 27* Fatigue Percentile 10 Pain Interference Percentile 2 07/26/2023 PROMIS SOCIAL ROLE SCORE Social Role Satisfaction Percentile 14 07/26/2023 PROMIS Global Health Scale Physical Health Percentile 10 Mental Health Percentile 13 Percentiles provide an indication of how the patient's score ranks in relation to the general population. Higher percentile rankings indicate better function/quality of life. 50th percentile is the average of the general population and indicates half of respondents had a worse score. Depression Screenin07/26/2023 PHQ-9 Score 7 07/26/2023 PHQ-9 Self-harm Question Question 9 Not at all PHQ-9 Self-Harm (Item 9) response options: 0 Not at all 1 Several days 2 More than half the days 3 Nearly every day PHQ-9 Levels: 0-4 No to mild depression 5-9 Mild depression 10-14 Moderate depression 15-19 Moderately severe depression 20-27 Severe depression OBJECTIVE: PHYSICAL EXAM There were no vitals taken for this visit. Constitutional Appears stated age, pleasant Psychiatric Alert and oriented to person, place, and time Normal speech and content. Appropriate mood and affect Pulmonary Breathing comfortably on room air Neurologic Cranial nerves are intact as per the following exam: II-vision grossly normal, PERRLA, III/IV/- EOMI, VII-hearing grossly normal, V-clench jaw, VII- raise eyebrows bilaterally; smile/frown intact and symmetric, able to bar teeth and puff out cheeks, XII- Able to protrude tongue and move it side to side, IX/X- swallow intact; says Ah Deep Tendon Reflexes Right Left Biceps 2+ 2+ Brachioradialis 2+ 2+ Patellar 2+ 2+ Rodriguez's Reflexes negative Sensation: sparing of sensation in the webspace between the first two toes on the right. This would suggest a peroneal nerve etiology Heel-to-Toe Test (Tandem Gait) within normal limits Musculoskeletal Manual Muscle Testing Right Left Shoulder Abduction (C5) 5/5 5/5 Elbow Flexion 5/5 5/5 Elbow Extension 5/5 5/5 Wrist Extension (C6) 5/5 5/5 Finger Extension (C7) 5/5 5/5 Finger Abduction (C8) 5/5 5/5 Hip Flexion 5/5 5/5 Knee Extension 5/5 5/5 Dorsiflexion (L4) 5/5 5/5 First Toe Extension (L5) 5/5 5/5 Plantar Flexion (S1) 5/5 5/5 Right eversion weakness Skin No rashes, bruising or other skin lesions. No visible edema DATA REVIEW [facility] records independently reviewed Imaging and outside records independently reviewed and findings are as follows: MRI L-spine (06/16/23): subcentimeter grade 1 anterolisthesis at L4-L5 contributing to moderate/severe degree of central canal and moderate degree bilateral foraminal stenosis greater right side. Alignment: Subcentimeter grade 1 anterolisthesis L4-5 level and mild degree of dextrocurvature distal thoracic-upper lumbar spine Bone marrow signal/fracture: No evidence of pathologic marrow infiltration. No evidence of acute or prior fracture. Degenerative disc/endplate degenerative changes most prominent L2-3 level Conus: The conus is within normal limits of signal intensity and morphology. Spinal cord terminates at the T12-L1 level. Cauda equina nerve roots appear unremarkable Paraspinal soft tissues: Paraspinal soft tissues are within normal limits. Lower thoracic spine: Visualized lower thoracic canal and foramina are patent. L1-L2: Canal and foramina are patent. No disc abnormalities L2-L3: Mild degree of degenerative central canal and foraminal narrowing secondary posterior endplate hypertrophy eccentric towards left side and posterior hypertrophic changes L3-L4: Mild degree of degenerative central canal and foraminal narrowing secondary posterior endplate hypertrophy and posterior hypertrophic changes L4-L5: Subcentimeter grade 1 anterolisthesis, posterior endplate upper/disc complex and hypertrophy the posterior elements contributing to moderate/severe degree of central canal and moderate degree bilateral foraminal stenosis greater right side. L5-S1: Partial sacralization. Bilateral facet joint arthropathy Sacrum and iliac wings: The visualized sacrum and iliac wings are within normal limits. 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 She endorses weakness of right foot x2 months. I initially though that these symptoms like arose from subcentimeter grade 1 anterolisthesis at L4-L5 contributing to moderate/severe degree of central canal and moderate degree bilateral foraminal stenosis greater right side. However, the weakness is localized to EVERSION only; moreover, exam demonstrates sparing of sensation in the webspace between the first two toes on the right. This would suggest a peroneal nerve etiology. EMG suggested right L5 radiculopathy without a peroneal neuropathy so we will proceed with spinal surgery Recommend Minimally-invasive right L4-L5 decompression CT L-spine to evaluate the bony anatomy for surgical planning. The presence of calcified intervertebral discs, ankylosed joints, and/or abnormal morphology on the CT scan are essential in tailoring the appropriate operation. Scoliosis x-ray I counseled the patient on the deleterious effects of the current smoking usage (1 packs/ day). We discussed, at length, the importance of smoking cessation for at least three months before surgery and indefinitely after surgery. A nicotine test will be ordered prior to surgery. Patient understands that the scheduled operation may be canceled if smoking continues. I would prefer to hold surgery until BMI < 40 and smoking cessation; however, the weakness x2 months warrants surgical intervention. Risks and benefits of the operation were discussed at length with the patient. Benefits are intended to prevent worsening of the weakness; I cannot promise the weakness will improve. The back pain will NOT improve. Risks unique to the operation include injury to the nerve roots, which may lead to paralysis, bowel/bladder incontinence, ataxia, and/or dysesthesias. Risks generalized to any procedure in medicine include infection, bleeding, thrombosis (blood clots can lead to strokes, heart attacks, pulmonary emboli in the lungs, and deep venous thromboses in the arms/ legs), and . I discussed these risks are all elevated given the smoking and obesity. We discussed the chances of dural tears with subsequent cerebrospinal fluid leaks. Medical Decision Making: Problems: Moderate: 2+ stable chronic illnesses Data: Unique source(s) for external note(s) reviewed: 3+ Unique test result(s) reviewed: 3+ Unique test(s) ordered: 3+ Assessment requiring an independent historian(s) Independent interpretation of test from other physician/QHCP Risk: Moderate: Decision on elective major surgery w/o risk factors Medical Decision Making Level: 4 - Moderate [facility] 08-24-2023 History and physical note Images from the original note were not included. UPDATED HISTORY AND PHYSICAL EXAMINATION SERVICE DATE: 08/25/2023 SERVICE TIME: 7:00 AM PHYSICAL EXAM MUST BE COMPLETED ON ADMISSION The History and Physical (completed in the past 30 days) has been reviewed and the patient has been examined. The contents accurately reflect the patient's condition with the following additions or revisions since the H&P was completed. Examination indicates no changes. This H&P can be found in the attached. SIGNATURE: Martha Lorenzo MD PATIENT NAME: Dima Nice DATE: August 25, 2023 TIME: 7:00 AM VIRTUAL SPINE SURGERY ESTABLISHED VISIT DATE OF SERVICE: 08/03/2023 DATE OF LAST VISIT: 07/13/2023 Virtual connection via: Zoom I have communicated my name and active licensure. The patient's identity and physical location were verified at the time of this visit. Either the patient or their legal treasury representative has been informed of the risks and benefits of -- and alternatives to -- treatment through a remote evaluation and consents to proceed with the evaluation remotely. SPINE SURGERY OUTPATIENT CLINIC VISIT SERVICE DATE: 07/13/2023 PCP: Casey Chang MD REFERRING PROVIDER: Gia Fernandes PA-C Consult requested for an opinion regarding the evaluation and treatment of a spinal pathology. My final impression and recommendations will be communicated back to the requesting physician by way of the shared medical record or letter via [place] mail. 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 To a much lesser extent, she reports left sided pain in the same distribution to a much lower extent. She reports right foot drop for two months. She reports low back pain much more mild (VAS 6/10). Lumbar injections three months ago provided only transient relief. 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 within the past 6 months EMG (07/28/23): right L5 radiculopathy without a peroneal neuropathy Extensive electrodiagnostic examination of the right lower extremity and additional nerve conduction studies of the left lower extremity reveals the following changes: . 1. Absent sural sensory response bilaterally is likely technical in nature and secondary to severe LE edema and body habitus. Thus, no definite evidence of a large fiber polyneuropathy. Clinical correlation is recommended. 2. Chronic motor axon loss changes consistent with intraspinal canal lesions/process affecting the right L5 root or segment (i.e, motor radiculopathy), mild in degree electrically, being accompanied by evidence of active or ongoing motor fiber loss in right EDB muscle. Limited contralateral NEE revealed no significant abnormalities. 3. No evidence of a right peroneal neuropathy. Bone Mineral Density ACTIVE PROBLEM LIST High Cholesterol Hypertension Vitamin D Deficiency PAST MEDICAL HISTORY Diagnosis Date Allergies Anxiety Arthritis Depression Gout Hiatal hernia High cholesterol Hydradenitis Hypertension Lyme disease triggered severe arthritis Vitamin D deficiency PAST SURGICAL HISTORY Procedure Laterality Date APPENDECTOMY HX BIOPSY BREAST benign COLONOSCOPY SCREENING 30 years ago per patient HYSTERECTOMY FAMILY HISTORY Problem Relation Age of Onset Immune Deficiency Mother Celiac Disease Father Heart Father Diabetes Paternal Grandmother Celiac Disease Other many family members Colon Cancer No Family History Social History Tobacco Use Smoking status: Every Day Packs/day: 1 Types: Cigarettes Start date: 12/25/1973 Smokeless tobacco: Never Vaping Use Vaping Use: Never used Substance Use Topics Alcohol use: Yes Alcohol/week: 3.0 standard drinks of alcohol Types: 3 Glasses of Wine (5oz) per week Comment: couple times/week Drug use: Never Comment: has medical marijuana card ALLERGIES Allergen Reactions Codeine Other: See Comments Mind changes MEDICATIONS: LORazepam (ATIVAN) 0.5 mg rosuvastatin (CRESTOR) 40 mg tablet Take 40 mg by mouth once daily. allopurinol (ZYLOPRIM) 300 mg tablet TAKE 1/2 (ONE-HALF) TABLET BY MOUTH IN THE MORNING budesonide-formoterol (SYMBICORT) 80-4.5 mcg/actuation inhaler Inhale 2 Puffs as instructed twice daily. HUMIRA,CF, PEN 40 mg/0.4 mL pen kit omeprazole (PRILOSEC) 20 mg capsule Take 1 capsule by mouth once daily. pravastatin (PRAVACHOL) 20 mg tablet Take 1 tablet by mouth once daily. meloxicam (MOBIC) 15 mg tablet Take 0.5 tablets by mouth twice daily. cholecalciferol, Vitamin D3, (VITAMIN D3) 1,250 mcg (50,000 unit) cap capsule Take 1 capsule by mouth one time a week. cyclobenzaprine (FLEXERIL) 10 mg tablet Take 1 tablet by mouth three times daily as needed for muscle spasm. citalopram hydrobromide (CELEXA ORAL) Take 30 mg by mouth once daily. lisinopril (ZESTRIL, PRINIVIL) 20 mg tablet Take 20 mg by mouth once daily. albuterol HFA (PROAIR HFA) 90 mcg/actuation inhaler Inhale 2 Puffs as instructed every 6 hours as needed. Patient Entered Questionnaires 07/26/2023 Spine Questions Pain Location: Leg Pain Duration: 3-6 months Pain over last 6 months: Every day or nearly every day in the past 6 months Symptoms from neck/cervical spine: No Employment Status: Retired Involved in law suit/legal claim: No PROMIS Score Percentiles 07/26/2023 Physical Health Physical Function Percentile 2 Sleep Percentile 27* Fatigue Percentile 10 Pain Interference Percentile 2 07/26/2023 PROMIS SOCIAL ROLE SCORE Social Role Satisfaction Percentile 14 07/26/2023 PROMIS Global Health Scale Physical Health Percentile 10 Mental Health Percentile 13 Percentiles provide an indication of how the patient's score ranks in relation to the general population. Higher percentile rankings indicate better function/quality of life. 50th percentile is the average of the general population and indicates half of respondents had a worse score. Depression Screenin07/26/2023 PHQ-9 Score 7 07/26/2023 PHQ-9 Self-harm Question Question 9 Not at all PHQ-9 Self-Harm (Item 9) response options: 0 Not at all 1 Several days 2 More than half the days 3 Nearly every day PHQ-9 Levels: 0-4 No to mild depression 5-9 Mild depression 10-14 Moderate depression 15-19 Moderately severe depression 20-27 Severe depression OBJECTIVE: PHYSICAL EXAM There were no vitals taken for this visit. Constitutional Appears stated age, pleasant Psychiatric Alert and oriented to person, place, and time Normal speech and content. Appropriate mood and affect Pulmonary Breathing comfortably on room air Neurologic Cranial nerves are intact as per the following exam: II-vision grossly normal, PERRLA, III/IV/- EOMI, VII-hearing grossly normal, V-clench jaw, VII- raise eyebrows bilaterally; smile/frown intact and symmetric, able to bar teeth and puff out cheeks, XII- Able to protrude tongue and move it side to side, IX/X- swallow intact; says Ah Deep Tendon Reflexes Right Left Biceps 2+ 2+ Brachioradialis 2+ 2+ Patellar 2+ 2+ Rodriguez's Reflexes negative Sensation: sparing of sensation in the webspace between the first two toes on the right. This would suggest a peroneal nerve etiology Heel-to-Toe Test (Tandem Gait) within normal limits Musculoskeletal Manual Muscle Testing Right Left Shoulder Abduction (C5) 5/5 5/5 Elbow Flexion 5/5 5/5 Elbow Extension 5/5 5/5 Wrist Extension (C6) 5/5 5/5 Finger Extension (C7) 5/5 5/5 Finger Abduction (C8) 5/5 5/5 Hip Flexion 5/5 5/5 Knee Extension 5/5 5/5 Dorsiflexion (L4) 5/5 5/5 First Toe Extension (L5) 5/5 5/5 Plantar Flexion (S1) 5/5 5/5 Right eversion weakness Skin No rashes, bruising or other skin lesions. No visible edema DATA REVIEW [facility] records independently reviewed Imaging and outside records independently reviewed and findings are as follows: MRI L-spine (06/16/23): subcentimeter grade 1 anterolisthesis at L4-L5 contributing to moderate/severe degree of central canal and moderate degree bilateral foraminal stenosis greater right side. Alignment: Subcentimeter grade 1 anterolisthesis L4-5 level and mild degree of dextrocurvature distal thoracic-upper lumbar spine Bone marrow signal/fracture: No evidence of pathologic marrow infiltration. No evidence of acute or prior fracture. Degenerative disc/endplate degenerative changes most prominent L2-3 level Conus: The conus is within normal limits of signal intensity and morphology. Spinal cord terminates at the T12-L1 level. Cauda equina nerve roots appear unremarkable Paraspinal soft tissues: Paraspinal soft tissues are within normal limits. Lower thoracic spine: Visualized lower thoracic canal and foramina are patent. L1-L2: Canal and foramina are patent. No disc abnormalities L2-L3: Mild degree of degenerative central canal and foraminal narrowing secondary posterior endplate hypertrophy eccentric towards left side and posterior hypertrophic changes L3-L4: Mild degree of degenerative central canal and foraminal narrowing secondary posterior endplate hypertrophy and posterior hypertrophic changes L4-L5: Subcentimeter grade 1 anterolisthesis, posterior endplate upper/disc complex and hypertrophy the posterior elements contributing to moderate/severe degree of central canal and moderate degree bilateral foraminal stenosis greater right side. L5-S1: Partial sacralization. Bilateral facet joint arthropathy Sacrum and iliac wings: The visualized sacrum and iliac wings are within normal limits. 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 She endorses weakness of right foot x2 months. I initially though that these symptoms like arose from subcentimeter grade 1 anterolisthesis at L4-L5 contributing to moderate/severe degree of central canal and moderate degree bilateral foraminal stenosis greater right side. However, the weakness is localized to EVERSION only; moreover, exam demonstrates sparing of sensation in the webspace between the first two toes on the right. This would suggest a peroneal nerve etiology. EMG suggested right L5 radiculopathy without a peroneal neuropathy so we will proceed with spinal surgery Recommend Minimally-invasive right L4-L5 decompression CT L-spine to evaluate the bony anatomy for surgical planning. The presence of calcified intervertebral discs, ankylosed joints, and/or abnormal morphology on the CT scan are essential in tailoring the appropriate operation. Scoliosis x-ray I counseled the patient on the deleterious effects of the current smoking usage (1 packs/ day). We discussed, at length, the importance of smoking cessation for at least three months before surgery and indefinitely after surgery. A nicotine test will be ordered prior to surgery. Patient understands that the scheduled operation may be canceled if smoking continues. I would prefer to hold surgery until BMI < 40 and smoking cessation; however, the weakness x2 months warrants surgical intervention. Risks and benefits of the operation were discussed at length with the patient. Benefits are intended to prevent worsening of the weakness; I cannot promise the weakness will improve. The back pain will NOT improve. Risks unique to the operation include injury to the nerve roots, which may lead to paralysis, bowel/bladder incontinence, ataxia, and/or dysesthesias. Risks generalized to any procedure in medicine include infection, bleeding, thrombosis (blood clots can lead to strokes, heart attacks, pulmonary emboli in the lungs, and deep venous thromboses in the arms/ legs), and . I discussed these risks are all elevated given the smoking and obesity. We discussed the chances of dural tears with subsequent cerebrospinal fluid leaks. Medical Decision Making: Problems: Moderate: 2+ stable chronic illnesses Data: Unique source(s) for external note(s) reviewed: 3+ Unique test result(s) reviewed: 3+ Unique test(s) ordered: 3+ Assessment requiring an independent historian(s) Independent interpretation of test from other physician/QHCP Risk: Moderate: Decision on elective major surgery w/o risk factors Medical Decision Making Level: 4 - Moderate documented in this encounter [facility] 08-24-2023 Note HNO ID: [id number] Author: ELYSSA RIZO PSYD Service: ? Author Type: Psychologist Type: Progress Notes Filed: 08/24/2023 20:24 Note Text: Behavioral Medicine Group Session TREK for Surgical Success/Empowered Relief for Surgery Patient Name: Dima Nice CC#: [id number] Date of service: August 24, 2023 I have communicated my name and active licensure. The patient's identity and physical location were verified at the time of this visit. Either the patient or their legal treasury representative has been informed of the risks and benefits of -- and alternatives to -- treatment through virtual visit and consents to proceed with the session remotely. Patient location: [address] [place] [address] Subjective: Patient participated in a 2 hour cognitive and behavioral group focused on coping with pain in the perioperative period for spine surgery. The goal of the following treatment is to improve the patient's health and well-being via cognitive, behavioral, social and/or psychophysiological procedures designed to ameliorate pain related problems. Group members received an orientation to the group and discussed their feelings related to their upcoming or recently had spine surgery. Group materials were distributed including an assessment form to evaluate Pain Catastrophizing and to target negative thought patterns related to pain. Additional materials included a personalized relapse prevention plan and goal setting sheet. Group session included psychoeducation related to the pain and stress response, experiential practice/learning of relaxation technique of deep breathing, orientation to the cognitive and behavioral model of pain and skill building (reframing negative thoughts, de-escalating negative emotions and identifying soothing actions). All of these skills were connected to the experience of spine surgery Objective: Affect is Appropriate. PHQ-9 = 7 (5-9) mild depression The patient paid good attention during the group and did verbalize understanding of the material presented. Medications: Current Outpatient Medications Medication Sig baclofen 15 mg tablet Take 10 mg by mouth as needed. fluticasone prp-sod.chl,bicarb 50 mcg- 0.9 % ksps Use 2 Sprays in the nose once daily. traMADol (ULTRAM) 50 mg tablet Take 50 mg by mouth every 8 hours as needed for pain. chlorthalidone (HYGROTON) 25 mg tablet Take 25 mg by mouth once daily. LORazepam (ATIVAN) 0.5 mg rosuvastatin (CRESTOR) 40 mg tablet Take 40 mg by mouth once daily. allopurinol (ZYLOPRIM) 300 mg tablet TAKE 1/2 (ONE-HALF) TABLET BY MOUTH IN THE MORNING budesonide-formoterol (SYMBICORT) 80-4.5 mcg/actuation inhaler Inhale 2 Puffs as instructed twice daily. HUMIRA,CF, PEN 40 mg/0.4 mL pen kit Inject 40 mg subcutaneously one time a week. Mondays omeprazole (PRILOSEC) 20 mg capsule Take 1 capsule by mouth once daily. pravastatin (PRAVACHOL) 20 mg tablet Take 1 tablet by mouth once daily. meloxicam (MOBIC) 15 mg tablet Take 0.5 tablets by mouth twice daily. (Patient taking differently: Take 7.5 mg by mouth once daily.) cholecalciferol, Vitamin D3, (VITAMIN D3) 1,250 mcg (50,000 unit) cap capsule Take 1 capsule by mouth one time a week. cyclobenzaprine (FLEXERIL) 10 mg tablet Take 1 tablet by mouth three times daily as needed for muscle spasm. citalopram hydrobromide (CELEXA ORAL) Take 30 mg by mouth once daily. lisinopril (ZESTRIL, PRINIVIL) 20 mg tablet Take 20 mg by mouth once daily. albuterol HFA (PROAIR HFA) 90 mcg/actuation inhaler Inhale 2 Puffs as instructed every 6 hours as needed. No current facility-administered medications for this visit. A: (G89.4) Chronic pain syndrome (primary encounter diagnosis) (M54.16) Radiculopathy, lumbar region (M48.062) Spinal stenosis of lumbar region with neurogenic claudication P: Behavioral pain management skills to optimize spine surgery were taught and materials sent by My Chart. Pt expressed insight that she will likely need additional pain psychology support following spine surgery. Placed order for consult to center for pain recovery to be evaluated by pain psychology for further treatment planning. Elyssa Rizo PSYD Start time 1p Stop time 2:26p [facility] 08-24-2023 History of Present illness Narrative Behavioral Medicine Group Session TREK for Surgical Success/Empowered Relief for Surgery Patient Name: Dima Nice CC#: [id number] Date of service: August 24, 2023 I have communicated my name and active licensure. The patient's identity and physical location were verified at the time of this visit. Either the patient or their legal treasury representative has been informed of the risks and benefits of -- and alternatives to -- treatment through virtual visit and consents to proceed with the session remotely. Patient location: [address] [place] [address] Subjective: Patient participated in a 2 hour cognitive and behavioral group focused on coping with pain in the perioperative period for spine surgery. The goal of the following treatment is to improve the patient's health and well-being via cognitive, behavioral, social and/or psychophysiological procedures designed to ameliorate pain related problems. Group members received an orientation to the group and discussed their feelings related to their upcoming or recently had spine surgery. Group materials were distributed including an assessment form to evaluate Pain Catastrophizing and to target negative thought patterns related to pain. Additional materials included a personalized relapse prevention plan and goal setting sheet. Group session included psychoeducation related to the pain and stress response, experiential practice/learning of relaxation technique of deep breathing, orientation to the cognitive and behavioral model of pain and skill building (reframing negative thoughts, de-escalating negative emotions and identifying soothing actions). All of these skills were connected to the experience of spine surgery Objective: Affect is Appropriate. PHQ-9 = 7 (5-9) mild depression The patient paid good attention during the group and did verbalize understanding of the material presented. Medications: Current Outpatient Medications Medication Sig baclofen 15 mg tablet Take 10 mg by mouth as needed. fluticasone prp-sod.chl,bicarb 50 mcg- 0.9 % ksps Use 2 Sprays in the nose once daily. traMADol (ULTRAM) 50 mg tablet Take 50 mg by mouth every 8 hours as needed for pain. chlorthalidone (HYGROTON) 25 mg tablet Take 25 mg by mouth once daily. LORazepam (ATIVAN) 0.5 mg rosuvastatin (CRESTOR) 40 mg tablet Take 40 mg by mouth once daily. allopurinol (ZYLOPRIM) 300 mg tablet TAKE 1/2 (ONE-HALF) TABLET BY MOUTH IN THE MORNING budesonide-formoterol (SYMBICORT) 80-4.5 mcg/actuation inhaler Inhale 2 Puffs as instructed twice daily. HUMIRA,CF, PEN 40 mg/0.4 mL pen kit Inject 40 mg subcutaneously one time a week. Mondays omeprazole (PRILOSEC) 20 mg capsule Take 1 capsule by mouth once daily. pravastatin (PRAVACHOL) 20 mg tablet Take 1 tablet by mouth once daily. meloxicam (MOBIC) 15 mg tablet Take 0.5 tablets by mouth twice daily. (Patient taking differently: Take 7.5 mg by mouth once daily.) cholecalciferol, Vitamin D3, (VITAMIN D3) 1,250 mcg (50,000 unit) cap capsule Take 1 capsule by mouth one time a week. cyclobenzaprine (FLEXERIL) 10 mg tablet Take 1 tablet by mouth three times daily as needed for muscle spasm. citalopram hydrobromide (CELEXA ORAL) Take 30 mg by mouth once daily. lisinopril (ZESTRIL, PRINIVIL) 20 mg tablet Take 20 mg by mouth once daily. albuterol HFA (PROAIR HFA) 90 mcg/actuation inhaler Inhale 2 Puffs as instructed every 6 hours as needed. No current facility-administered medications for this visit. A: (G89.4) Chronic pain syndrome (primary encounter diagnosis) (M54.16) Radiculopathy, lumbar region (M48.062) Spinal stenosis of lumbar region with neurogenic claudication P: Behavioral pain management skills to optimize spine surgery were taught and materials sent by My Chart. Pt expressed insight that she will likely need additional pain psychology support following spine surgery. Placed order for consult to center for pain recovery to be evaluated by pain psychology for further treatment planning. Elyssa Rizo PSYD Start time 1p Stop time 2:26p documented in this encounter [facility] 08-16-2023 History of Present illness Narrative Radiology Service Progress Note PATIENT NAME: Dima Nice DATE OF SERVICE: August 16, 2023 TIME: 5:14 PM PATIENT IDENTITY VERIFICATION COMPLETED USING TWO (2) IDENTIFIERS: Name and Date of confirmed by patient verbally and Name and Date of confirmed by identification band. FALL SCREENING: Has the patient had 2 falls in the last year or 1 fall with injury or currently using an Ambulatory Assistive Device (Walker, Cane, Wheelchair, Crutches, etc.)? No PATIENT GENDER DATA: Female. status: : No status: NO. PATIENT RELEVANT IMPLANT DATA REVIEWED: Not Applicable PATIENT PRESENTS WITH AN IMPLANTABLE OR ATTACHED FABRICATION OPERATOR: No RADIOLOGY DEPARTMENT: CT; Exam(s) Completed: Spine PERIPHERAL IV DATA: Not applicable SIGNED BY: RT Brandyn(R) August 16, 2023 5:14 PM documented in this encounter [facility] 08-16-2023 Note HNO ID: [id number] Author: HARVEY MARINA RT(R) Service: Radiology Author Type: Technologist Type: Progress Notes Filed: 08/16/2023 17:14 Note Text: Radiology Service Progress Note PATIENT NAME: Dima Nice DATE OF SERVICE: August 16, 2023 TIME: 5:14 PM PATIENT IDENTITY VERIFICATION COMPLETED USING TWO (2) IDENTIFIERS: Name and Date of confirmed by patient verbally and Name and Date of confirmed by identification band. FALL SCREENING: Has the patient had 2 falls in the last year or 1 fall with injury or currently using an Ambulatory Assistive Device (Walker, Cane, Wheelchair, Crutches, etc.)? No PATIENT GENDER DATA: Female. status: : No status: NO. PATIENT RELEVANT IMPLANT DATA REVIEWED: Not Applicable PATIENT PRESENTS WITH AN IMPLANTABLE OR ATTACHED FABRICATION OPERATOR: No RADIOLOGY DEPARTMENT: CT; Exam(s) Completed: Spine PERIPHERAL IV DATA: Not applicable SIGNED BY: RT Brandyn(R) August 16, 2023 5:14 PM [facility] 08-16-2023 Evaluation + Plan note Associated Problem(s): Primary osteoarthritis involving multiple joints Stable, continue tramadol as needed [facility] 08-16-2023 Evaluation + Plan note Associated Problem(s): Hypertension controlled, continue chlorthalidone 25 mg daily lisinopril 60 mg daily [facility] 08-16-2023 Miscellaneous Notes Associated Problem(s): Primary osteoarthritis involving multiple joints Stable, continue tramadol as needed Associated Problem(s): Hypertension controlled, continue chlorthalidone 25 mg daily lisinopril 60 mg daily Associated Problem(s): Dyspnea on exertion Resolved, continue chlorthalidone as needed and plus or minus if she needs her echocardiogram documented in this encounter [facility] 08-16-2023 Evaluation + Plan note Associated Problem(s): Dyspnea on exertion Resolved, continue chlorthalidone as needed and plus or minus if she needs her echocardiogram [facility] 08-16-2023 History of Present illness Narrative Patient verified by last name and date of . Images from the original note were not included. 08/16/2023 Dima Nice (: 1960) is a 63 y.o. female , Established patient, here for evaluation of the following chief complaint(s): Shortness of Breath, Edema, and Follow-up (2 week ) ASSESSMENT/PLAN: 1. Dyspnea on exertion Assessment & Plan: Resolved, continue chlorthalidone as needed and plus or minus if she needs her echocardiogram 2. Primary osteoarthritis involving multiple joints Assessment & Plan: Stable, continue tramadol as needed Orders: - Handicap Placard 3. Primary hypertension Assessment & Plan: controlled, continue chlorthalidone 25 mg daily lisinopril 60 mg daily Follow up in about 3 months (around 11/16/2023). SUBJECTIVE/OBJECTIVE: HPI - Dima comes in today for 2-week follow-up on her shortness of breath with exertion she says that has seemed to resolve and her swelling is down we started her on chlorthalidone and we did get lab work and her BNP for congestive heart failure was normal. She is due to have spine surgery in the next 2 weeks. Review of Systems Constitutional: Negative for chills and fever. Respiratory: Negative for shortness of breath. Cardiovascular: Negative for chest pain and palpitations. Vitals: 08/16/23 1103 BP: 101/71 Pulse: 91 SpO2: 92% Weight: 267 lb 6.4 oz (121 kg) Height: 5' 3" (1.6 m) Physical Exam Vitals and nursing note reviewed. Constitutional: General: She is not in acute distress. Appearance: Normal appearance. HENT: Head: Normocephalic and atraumatic. Mouth/Throat: Mouth: Mucous membranes are moist. Pharynx: Oropharynx is clear. Eyes: Extraocular Movements: Extraocular movements intact. Pupils: Pupils are equal, round, and reactive to light. Cardiovascular: Rate and Rhythm: Normal rate and regular rhythm. Heart sounds: Normal heart sounds. No murmur heard. Pulmonary: Effort: Pulmonary effort is normal. Breath sounds: Normal breath sounds. Musculoskeletal: Cervical back: Neck supple. Lymphadenopathy: Cervical: No cervical adenopathy. Neurological: Mental Status: She is alert. An electronic signature was used to authenticate this note. Casey Chang MD 08/16/2023 12:06 PM documented in this encounter [facility] 08-15-2023 Telephone encounter Note NEUROSURGERY CARE COORDINATION [facility] PRE-OP EDUCATION TELEPHONE CALL Patient scheduled for Right L4/[address] Lorenzo for 08/24 at [facility]. Noted medical clearance pending both x-ray scoliosis and CT lumbar spine to be completed as ordered prior to surgery per Dr. Lorenzo, this RN to f/u with this, and noted financial clearance obtained. Called patient at home/mobile phone number, name and verified. Spoke with patient Dima Nice for pre-op education. Given, previously mailed, see encounter dated 08/01 regarding this, both written and verbal instructions regarding: pre-op skin preparation and post-op pain management, wound care, and restrictions. Provided, previously mailed, see encounter dated 08/01 regarding this, to patient and discussed the following education materials and supplies: Map of [facility] 1st Floor, Spine Surgery Pre-/Post-Op Instructions, Skin Preparation & NPO Instructions including Hibiclens & CHG wipes, Pain Management After Spine Surgery, Smoking & Spine Surgery, and Preparing for Surgery Card? Yes. Patient states already purchased Hibiclens soap. Discussed recommendation and provided education material to have Advance Directives completed? Yes. Provided [facility] Power of Wireline Supervisor form? No. Provided [facility] Will form? No. Does patient already have forms completed and scanned into system or were forms scanned during this visit? No; patient going to complete and then bring in to be uploaded to chart, discussed process here. Reviewed with patient to have pre-testing done within 30 days of scheduled surgery and phone number provided to call and schedule? Yes; P[facility] appointment completed on 08/10 and patient cleared and ready for surgery pending both x-ray scoliosis and CT lumbar spine, noted scheduled for tomorrow 08/15, this RN to f/u with this, patient aware, reviewed and relayed PACC provider instructions, including medications, see notes, states understanding. Reviewed with patient that Pre-Op will call between 2PM-5PM with time to arrive for surgery the next day? Yes. Reviewed with patient that they will report to Pre/Post Op Services desk day of surgery? Yes. Does patient have transportation to and from surgery? Yes. Patient aware surgery anticipated to be OUTPATIENT. Discussed anticipated care after discharge to be self care, HHC, and/or acute rehab. Post-op support: sister. Falls Education provided? Yes. Additional comments: Pre-Op Melissa Educational video previously ordered, patient aware. Questions and concerns answered and patient verbalized understanding via teach back. Instructed to call office as needed, office phone number provided. CONRADO Farah, RN August 15, 2023 3:57 PM [facility] 08-15-2023 Miscellaneous Notes NEUROSURGERY CARE COORDINATION [facility] PRE-OP EDUCATION TELEPHONE CALL Patient scheduled for Right L4/[address] Lorenzo for 08/24 at [facility]. Noted medical clearance pending both x-ray scoliosis and CT lumbar spine to be completed as ordered prior to surgery per Dr. Lorenzo, this RN to f/u with this, and noted financial clearance obtained. Called patient at home/mobile phone number, name and verified. Spoke with patient Dima Nice for pre-op education. Given, previously mailed, see encounter dated 08/01 regarding this, both written and verbal instructions regarding: pre-op skin preparation and post-op pain management, wound care, and restrictions. Provided, previously mailed, see encounter dated 08/01 regarding this, to patient and discussed the following education materials and supplies: [facility] 1st Floor, Spine Surgery Pre-/Post-Op Instructions, Skin Preparation & NPO Instructions including Hibiclens & CHG wipes, Pain Management After Spine Surgery, Smoking & Spine Surgery, and Preparing for Surgery Card? Yes. Patient states already purchased Hibiclens soap. Discussed recommendation and provided education material to have Advance Directives completed? Yes. Provided [facility] Power of Wireline Supervisor form? No. Provided [facility] Will form? No. Does patient already have forms completed and scanned into system or were forms scanned during this visit? No; patient going to complete and then bring in to be uploaded to chart, discussed process here. Reviewed with patient to have pre-testing done within 30 days of scheduled surgery and phone number provided to call and schedule? Yes; [facility] appointment completed on 08/10 and patient cleared and ready for surgery pending both x-ray scoliosis and CT lumbar spine, noted scheduled for tomorrow 08/15, this RN to f/u with this, patient aware, reviewed and relayed PACC provider instructions, including medications, see notes, states understanding. Reviewed with patient that Pre-Op will call between 2PM-5PM with time to arrive for surgery the next day? Yes. Reviewed with patient that they will report to Pre/Post Op Services desk day of surgery? Yes. Does patient have transportation to and from surgery? Yes. Patient aware surgery anticipated to be OUTPATIENT. Discussed anticipated care after discharge to be self care, HHC, and/or acute rehab. Post-op support: sister. Falls Education provided? Yes. Additional comments: Pre-Op Melissa Educational video previously ordered, patient aware. Questions and concerns answered and patient verbalized understanding via teach back. Instructed to call office as needed, office phone number provided. CONRADO Farah, RN August 15, 2023 3:57 PM documented in this encounter [facility] 08-12-2023 Telephone encounter Note Images from the original note were not included. NEUROSURGERY CARE COORDINATION [facility] QUICK NOTE See below response per CLASSROOM TECHNOLOGY TECHNICIAN. Returned call to patient at phone number below, verified name and , relayed and discussed below per CLASSROOM TECHNOLOGY TECHNICIAN, states understanding, denies needing anything further, instructed to contact office again as needed. No further action required by this RN at this time. Katie Hammond APRN.NED [facility] Nurse Kamryn now (11:24 AM) Lisa, I talked to Dr. Lorenzo and he said no to injection before surgery. Thank you CONRADO Barlow, RIANA August 12, 2023 11:33 AM [facility] 08-12-2023 Miscellaneous Notes Images from the original note were not included. NEUROSURGERY CARE COORDINATION [facility] QUICK NOTE See below response per CLASSROOM TECHNOLOGY TECHNICIAN. Returned call to patient at phone number below, verified name and , relayed and discussed below per CLASSROOM TECHNOLOGY TECHNICIAN, states understanding, denies needing anything further, instructed to contact office again as needed. No further action required by this RN at this time. Katie Hammond APRN.NED [facility] Nurse Kamryn now (11:24 AM) Lisa I talked to Dr. Lorenzo and he said no to injection before surgery. Thank you CONRADO Barlow, RN August 12, 2023 11:33 AM NEUROSURGERY CARE COORDINATION [facility] QUICK NOTE Notified by Market Analyst that patient returned call to office at this time, call transferred to this RN, name verified, states pain management team recommending nerve block in lower lumbar spine, informed message will be sent to NSGY team with Dr. Lorenzo regarding this and that response will be relayed afterwards, states understanding. Routing to NSGY team. CONRADO Farah, RN August 09, 2023 11:35 AM NEUROSURGERY CARE COORDINATION [facility] QUICK NOTE Chart reviewed. Patient scheduled for Right L4/[address] Lorenzo for 08/24 at [facility]. Returned call to patient at phone number below, verified name and , discussed below, aware to receive Humira instructions from ordering/managing provider and aware this will also be reviewed during upcoming P[facility] appointment scheduled for 08/10, states unsure of exact injection being recommended by pain management team at this time, states will contact pain management team and then notify this office and this RN afterwards of exact injection, aware that this RN will then confirm with NSGY team if OK to proceed with injection prior to surgery with Dr. Lorenzo, states understanding. CONRADO Farah, RN August 09, 2023 11:12 AM Call received for Martha Lorenzo MD regarding Dima Nice 1960. Caller/Self: Dima Nice Patient Identified by Name and : Yes Was permission obtained from patient ? Yes Reason for Call: Ms. Nice has 2 questions she would like answered as soon as possible 1) Can she continue taking her Humira up to surgery date? 2) Her pain management doctor would like her to get a nerve block. Can she get a nerve block 2 1/2 weeks prior to surgery? She would like to Last Distance Health Visit: 08/02/[address] Lorenzo Next scheduled appointment: Surgery on 08/25/[address] Lorenzo Best number to reach caller: [phone] Is it OK to leave a detailed voice message? Yes Juanita Gallegos documented in this encounter [facility] 08-11-2023 Telephone encounter Note Reviewed chart. Refill appropriate. RX sent. [facility] 08-11-2023 Miscellaneous Notes Reviewed chart. Refill appropriate. RX sent. Prescription Request: Last medication check: 05/26/2023 Last physical exam:09/30/2021 Next scheduled appointment: 08/16/23 Last date of refill on this medication: 08/19/22 for symbicort, flexeril was DC'd documented in this encounter [facility] 08-11-2023 Miscellaneous Notes Reviewed chart. Refill appropriate. RX sent. Prescription Request: Last medication check: 05/26/2023 Last physical exam:09/30/2021 Next scheduled appointment: 08/16/23 Last date of refill on this medication: 07/12/23 documented in this encounter [facility] 08-11-2023 Telephone encounter Note Reviewed chart. Refill appropriate. RX sent. [facility] 08-11-2023 Telephone encounter Note Reviewed chart. Refill appropriate. RX sent. [facility] 08-11-2023 Miscellaneous Notes Reviewed chart. Refill appropriate. RX sent. Prescription Request: Last medication check: 05/26/2023 Last physical exam:09/30/2021 Next scheduled appointment: 08/16/23 Last date of refill on this medication: 05/17/23 documented in this encounter [facility] 08-11-2023 Telephone encounter Note [facility] 08-11-2023 Miscellaneous Notes Prescription Request: Last medication check: 05/26/2023 Last physical exam:09/30/2021 Next scheduled appointment: 08/16/23 Last date of refill on this medication: 01/31/23 documented in this encounter [facility] 08-11-2023 Telephone encounter Note Prescription Request: Last medication check: 05/26/2023 Last physical exam:09/30/2021 Next scheduled appointment: 08/16/23 Last date of refill on this medication: 07/12/23 [facility] 08-11-2023 Telephone encounter Note Prescription Request: Last medication check: 05/26/2023 Last physical exam:09/30/2021 Next scheduled appointment: 08/16/23 Last date of refill on this medication: 08/19/22 for symbicort, flexeril was DC'd [facility] 08-11-2023 Telephone encounter Note Prescription Request: Last medication check: 05/26/2023 Last physical exam:09/30/2021 Next scheduled appointment: 08/16/23 Last date of refill on this medication: 01/31/23 [facility] 08-11-2023 Telephone encounter Note Prescription Request: Last medication check: 05/26/2023 Last physical exam:09/30/2021 Next scheduled appointment: 08/16/23 Last date of refill on this medication: 05/17/23 [facility] 08-11-2023 Instructions Ruth Wilcox PA-C - 08/11/2023 1:59 PM EDT PATIENT PREOPERATIVE INSTRUCTIONS Martha Upton MD has scheduled you for your procedure at this surgery center: [facility]: [phone] -- [address] [address]. Please read below carefully for your personalized instructions. Arrival Time for Surgery: -You will receive a call from [facility] the afternoon before surgery after 2:30 pm (or Tuesday for Tuesday surgery) for a scheduled arrival time. - If you have not heard by 4 pm, please contact [facility] at [phone]. Please be aware that emergency situations arise, which may delay or change your surgical time. If this happens, we will notify you as soon as possible and regret any inconvenience. Dietary Restrictions: - No solid food after midnight. - You may have 12 ounces of clear liquids (water, clear juices such as apple juice or gatorade, carbonated beverages, clear tea, black coffee, jello) until 2 hours before scheduled arrival at facility. - Do not drink any alcohol after midnight the night before your surgery. Medications: Unless instructed differently below, stay on all of your medications until your surgery. Pre-Surgery Med Instructions Medication Instructions baclofen 15 mg tablet Take the day of surgery with a small sip of water traMADol (ULTRAM) 50 mg tablet Continue to take as you normally do as needed chlorthalidone (HYGROTON) 25 mg tablet Do not take the day of surgery LORazepam (ATIVAN) 0.5 mg OK to take as you normally do as needed rosuvastatin (CRESTOR) 40 mg tablet Take the day of surgery with a small sip of water allopurinol (ZYLOPRIM) 300 mg tablet Take the day of surgery with a small sip of water budesonide-formoterol (SYMBICORT) 80-4.5 mcg/actuation inhaler Continue to take as you normally do (take day of surgery). HUMIRACF, PEN 40 mg/0.4 mL pen kit Check with your prescriber to see if possible to hold 2 doses prior to surgery - this medication can sometimes delay healing. omeprazole (PRILOSEC) 20 mg capsule Take the day of surgery with a small sip of water pravastatin (PRAVACHOL) 20 mg tablet Take the day of surgery with a small sip of water meloxicam (MOBIC) 15 mg tablet Stop 7 days before surgery cholecalciferol, Vitamin D3, (VITAMIN D3) 1,250 mcg (50,000 unit) cap capsule OK to take as you normally do citalopram hydrobromide (CELEXA ORAL) Take the day of surgery with a small sip of water lisinopril (ZESTRIL, PRINIVIL) 20 mg tablet Do not take night before or morning of surgery albuterol HFA (PROAIR HFA) 90 mcg/actuation inhaler Continue to take as you normally do as needed. If you start any new medications after today's visit, please contact the surgeon's office. Blood Thinning Medications: - Stop NSAIDS (Ibuprofen, Advil, Aleve, Motrin, Celebrex, Mobic, etc.) 7 days before surgery, as directed by your surgeon. - Stop Aspirin 7 days before surgery, as directed by your surgeon. - Stop Vitamin E, ALL multi-vitamins, herbals and dietary supplements 14 days before surgery. - You may take Tylenol (Acetaminophen) or any of your pain medications that do not contain aspirin or NSAIDS as needed. Vitamins/supplements prescribed for a specific purpose (e.g., vitamin D and calcium for osteoporosis, vitamin B12 for B12 deficiency) should be continued, but all others (especially any including vitamins A and E) should be stopped. Mupirocin Ointment Instructions (if your swab comes back positive) Apply 1/2 inch of the mupirocin ointment with a Q-tip to both nostrils in the morning and afternoon for 5 consecutive days before surgery. If you are scheduled for a pre-op Covid-19 test, please do not apply mupirocin the morning of your test. You may apply it right after the test instead. Important Reminders: - Candy, mints, and tobacco products are NOT permitted the morning of surgery. - Hearing aids, dentures and glasses may be worn the morning of surgery. - NO jewelry, body piercings, makeup, hairpins or contacts are to be worn the day of surgery. If you develop symptoms such as a fever, cold, or flu, or have other changes to your health within TWO DAYS of scheduled surgery or the morning of surgery, please contact the surgery center above. Personal Belongings: -Please have photo ID and insurance cards. -If you do not have a copy of advance directives on file with us, please bring a copy with you on the day of surgery. - Leave ALL valuables and money at home or with family members. For Outpatient Procedures: - YOU MUST HAVE A RESPONSIBLE RETORT PRE COOKER TAKE YOU HOME. A AIR AND MISSILE DEFENSE CREWMEMBER OR ORNAMENTAL METAL WORKER APPRENTICE CANNOT BE MADE A RESPONSIBLE RETORT PRE COOKER. - We recommend that a responsible person stays with you overnight to take care of you. - You cannot stay in a hotel alone after outpatient surgery. You will not be permitted to have your surgery, if you do not have someone to take care of you. If you already have an Advance Directive, please fax a copy to [phone] or email to for it to be added to your chart. If you do not have an Advance Directive, you can find the appropriate form and more information at [email or web address]. We recommend that you complete the Advance Directive form found on the website and bring it with you the day of your surgery. It can be witnessed and scanned into your chart that day. Ruth Wilcox PA-C documented in this encounter [facility] 08-11-2023 History and physical note HISTORY AND PHYSICAL EXAMINATION SERVICE DATE: 08/11/2023 SERVICE TIME: 3:57 PM PRIMARY CARE PHYSICIAN: Casey Chang MD REASON FOR VISIT: Dima Nice is a 63 year old female who is scheduled for Procedure(s): DECOMPRESSION LAMINECTOMY LUMBAR POSTERIOR LEVEL 1 (Right L4/5 MIS Decompression) (Right) at the request of Martha Upton MD for consultation. My final recommendation will be communicated back to the requesting physician by way of shared medical record or letter. Subjective The patient has the following: ACTIVE PROBLEM LIST High Cholesterol Hypertension Vitamin D Deficiency Anxiety Asthma Depression Flaccid Tetraplegia (Hcc) Hepatic Steatosis Gastroesophageal Reflux Disease Hidradenitis Suppurativa COVID-19 Immunization Status Overdue - Covid-19 Vaccine () Overdue since 04/14/2023 02/17/2023 Imm Admin: COVID-19 vaccine, age 12+ yr, season (PFIZER-BIONTECH) 06/30/2021 Imm Admin: COVID-19 original vaccine, age 12+ yr, monovalent (PFIZER-BIONTECH - BURNS TOP) 12/11/2020 Imm Admin: COVID-19 original vaccine, age 12+ yr, monovalent (PFIZER-BIONTECH - PURPLE TOP) Only the first 3 history entries have been loaded, but more history exists. CHIEF COMPLAINT: pre op HPI: Dima Nice is a 63 year old female presenting for pre-anesthesia consultation. Pt has history of lumbar spinal stenosis. Above procedure recommended to manage symptoms. Procedure scheduled on 08/25/2023 at [facility]. REVIEW OF SYSTEMS: General: No weight loss, malaise or fevers. Neurological: Positive for: seizures (One seizure as a child, never recurred, never on medications). Negative for: headaches, multiple sclerosis, Parkinson's disease, peripheral neuropathy, TIA and strokes. Respiratory: Positive for: asthma, COPD and tobacco use. Negative for: current cough, dyspnea, home oxygen, URI < 2 weeks and obstructive sleep apnea. Cardiovascular: Denies dizziness or syncope. Positive for: hyperlipidemia and hypertension Negative for: AICD/PPM, arrhythmia, CAD, chest pain, CHF, DVT/PE, recent MD, murmur/valvular heart disease, open heart surgery and valve surgery. GI: Positive for: GERD (HH) Negative for: abdominal pain, GI bleed <30 days, hepatitis, liver disease, nausea and vomiting. : Denies kidney disease Positive for: frequent urination and urgency. Negative for: dysuria, hematuria and urinary tract infection. Endocrine: Negative for: diabetes mellitus, hyperthyroidism and hypothyroidism. Hematology: Negative for: anemia, bruises/bleeds easily, factor V Leiden, hemophilia, thrombocytopenia and von Willebrand disease. Oncology: No history of CA metastasis, chemo within 30 days, or radiotherapy within 90 days. No history of oncological symptoms or problems. Psych: Positive for: anxiety (Lorazepam PRN - rare use) and depression. Negative for: bipolar disorder. Musculoskeletal: See HPI. Skin: Chronic skin issues comment: Humira once a week - HS PAST MEDICAL HISTORY Diagnosis Date Allergies Anxiety Arthritis Depression Gout Hiatal hernia High cholesterol Hydradenitis Hypertension Lyme disease triggered severe arthritis Vitamin D deficiency PAST SURGICAL HISTORY Procedure Laterality Date APPENDECTOMY HX BIOPSY BREAST benign COLONOSCOPY SCREENING 30 years ago per patient HYSTERECTOMY FAMILY HISTORY Problem Relation Age of Onset Immune Deficiency Mother Celiac Disease Father Heart Father Diabetes Paternal Grandmother Celiac Disease Other many family members Colon Cancer No Family History Anesthesia Problems No Family History Social History Tobacco Use Smoking status: Every Day Packs/day: 1 Types: Cigarettes Start date: 12/25/1973 Smokeless tobacco: Never Tobacco comments: 5/ day, nicotine patches Vaping Use Vaping Use: Never used Substance Use Topics Alcohol use: Yes Alcohol/week: 3.0 standard drinks of alcohol Types: 3 Glasses of Wine (5oz) per week Comment: couple times/week Drug use: Not Currently Types: Marijuana Comment: has medical marijuana card, hasn't used since June 2023 Prior to Admission medications as of 07/13/23 0956 Medication Sig Last Dose Taking baclofen 15 mg tablet Take 10 mg by mouth as needed. Taking Yes fluticasone prp-sod.chl,bicarb 50 mcg- 0.9 % ksps Use 2 Sprays in the nose once daily. Taking Yes traMADol (ULTRAM) 50 mg tablet Take 50 mg by mouth every 8 hours as needed for pain. Taking Yes chlorthalidone (HYGROTON) 25 mg tablet Take 25 mg by mouth once daily. Taking Yes LORazepam (ATIVAN) 0.5 mg Taking Yes rosuvastatin (CRESTOR) 40 mg tablet Take 40 mg by mouth once daily. Taking Yes allopurinol (ZYLOPRIM) 300 mg tablet TAKE 1/2 (ONE-HALF) TABLET BY MOUTH IN THE MORNING Taking Yes budesonide-formoterol (SYMBICORT) 80-4.5 mcg/actuation inhaler Inhale 2 Puffs as instructed twice daily. Taking Yes HUMIRA,CF, PEN 40 mg/0.4 mL pen kit Inject 40 mg subcutaneously one time a week. Mondays Taking Yes omeprazole (PRILOSEC) 20 mg capsule Take 1 capsule by mouth once daily. Taking Yes pravastatin (PRAVACHOL) 20 mg tablet Take 1 tablet by mouth once daily. Taking Yes meloxicam (MOBIC) 15 mg tablet Take 0.5 tablets by mouth twice daily. Patient taking differently: Take 7.5 mg by mouth once daily. Taking Yes cholecalciferol, Vitamin D3, (VITAMIN D3) 1,250 mcg (50,000 unit) cap capsule Take 1 capsule by mouth one time a week. Taking Yes citalopram hydrobromide (CELEXA ORAL) Take 30 mg by mouth once daily. Taking Yes lisinopril (ZESTRIL, PRINIVIL) 20 mg tablet Take 20 mg by mouth once daily. Taking Yes albuterol HFA (PROAIR HFA) 90 mcg/actuation inhaler Inhale 2 Puffs as instructed every 6 hours as needed. Taking Yes cyclobenzaprine (FLEXERIL) 10 mg tablet Take 1 tablet by mouth three times daily as needed for muscle spasm. No medication comments found. ALLERGIES Allergen Reactions Codeine Other: See Comments Mind changes Objective PHYSICAL EXAM: General: alert and oriented and healthy appearance. Pertinent negatives noted - not distressed. Skin: normal color, no rash or lesions. HEENT: EOM intact, pupils equal round and pupils reactive to light. Pertinent negatives noted - no carotid bruit. Cardiovascular: regular rate and rhythm, normal S1 and S2, no rub, murmurs, or gallop. Respiratory: normal breath sounds, no wheezes or crackles. No chest wall deformity or tenderness. Abdomen: bowel sounds present and soft. Pertinent negatives noted - not tender. Extremities: Positive for edema. Pertinent negatives noted - no cellulitis, no clubbing, no deformity and no joint tenderness. Neurological: normal cognition and motor skills. Gait normal. No weakness or sensory deficit. PAIN ASSESSMENT: Pain Pain Level: 3 Pain Location: Back-Lower Description: Sharp, Tingling Frequency: Intermittent VITALS: BP 126/79 Pulse 76 Temp 99.1 Resp 20 Ht 5' 3" (1.60m) Wt 267 lb 13.7 oz (121.5kg) SpO2 96% BMI 47.46 kg/(m^2). Diagnostic tests reviewed for today's visit: Lab Value Units Date High Low HB No results within date range. HCT No results within date range. WBC No results within date range. PLT No results within date range. NA No results within date range. K No results within date range. GLUC No results within date range. BUN No results within date range. CREAT No results within date range. PTSEC No results within date range. INR No results within date range. APTT No results within date range. ALT No results within date range. AST No results within date range. TBILI No results within date range. TSH No results within date range. Lab Value Units Date High Low HCGQT No results within date range. UHCG No results within date range. HCG, BODY* No results within date range. Lab Value Units Date High Low ABORHD No results within date range. ABSCREEN No results within date range. No results found for: "HBA1C" No results found for this or any previous visit (from the past 8760 hour(s)). No results found for this or any previous visit (from the past 19950 hour(s)). Assessment Patient has the following medical conditions which may affect kat-operative course: High cholesterol Assessment: Adherent to statin therapy. Hypertension Assessment: Follows with PCP, adherent to RX. In office today BP: 126/79 Asthma Assessment: Follows with pulmonary. Breathing is at baseline. Adherent to inhaled therapies, Symbicort, PRN albuterol (no recent albuterol need. On exam, lungs CTA b/l. SpO2 96% on room air. Gastroesophageal reflux disease Assessment: Adherent to statin. Hepatic steatosis Assessment: Follows with PCP, noted on imaging. LFTs wnl. Hidradenitis suppurativa Assessment: Follows with dermatology. On Humira weekly - prescriber encouraged continued use. Stable, no current infections. Depression Assessment: Depression and anxiety. On rx, stable per pt. Mcdaniels Activity Status Index: METS: Climb a flight of stairs or walk up a hill (5.50 METs) DASI Score: 5.5 Patient denies any chest pain or undue shortness of breath with the above physical activity. Patient is limited most or all of the time (uses scooter, mobility device). Clinical Frailty Scale: 4. Apparently vulnerable STOP-Bang Score: Snores loudly Denies feeling tired, fatigued, or sleepy during the daytime Has not been observed to stop breathing or choking/gasping during sleep STOP-Bang Score: 1 [id number] Score: Hypertension history: Yes [id number] Score: ANESTHESIA FINDINGS: Intubation History: No history of difficult intubation. No abnormal airway history Significant Anesthesia Considerations: potential difficult IV/vein access Airway History: No history of difficult airway No abnormal airway history I - PHYSICAL EVALUATION AIRWAY Patient intubated: No. Tracheostomy tube not present Mallampati: III. TM distance: >3 FB. Neck ROM: full ROM without neurological symptoms. Mouth opening: adequate. Short neck: no. Thick neck: no Lip Bite Test: II Microretrognathia/Micronagthia/Rec essed Chin: No DENTAL Dental findings: teeth intact. Additional comments: + caps/crowns. II - ANESTHESIA PLAN Beta Mark Monitoring Plan Post Procedure Analgesic Plan Prepared for Surgery: optimally prepared for surgery. Labs and outside ECG (completed with PCP on 07/28/23 - uploading to scanned docs) - reviewed and acceptable. CONSULTS: Patient does not require consults for optimization at this time Planned Anesthetic: The Following Tests/Procedures Have Been Initiated: Orders Placed This Encounter baclofen 15 mg tablet Sig: Take 10 mg by mouth as needed. fluticasone prp-sod.chl,bicarb 50 mcg- 0.9 % ksps Sig: Use 2 Sprays in the nose once daily. traMADol (ULTRAM) 50 mg tablet Sig: Take 50 mg by mouth every 8 hours as needed for pain. chlorthalidone (HYGROTON) 25 mg tablet Sig: Take 25 mg by mouth once daily. ECG (IN OFFICE) Instructions Given to Patient: Instructions located in the after visit summary. Patient given verbal and written preop instructions and voices comprehension and compliance. SIGNATURE: Ruth Wilcox PA-C PATIENT NAME: Dima Nice DATE: 08/11/2023 TIME: 3:57 PM PAGER/CONTACT #: [facility] 08-11-2023 History and physical note HISTORY AND PHYSICAL EXAMINATION SERVICE DATE: 08/11/2023 SERVICE TIME: 3:57 PM PRIMARY CARE PHYSICIAN: Casey Chang MD REASON FOR VISIT: Dima Nice is a 63 year old female who is scheduled for Procedure(s): DECOMPRESSION LAMINECTOMY LUMBAR POSTERIOR LEVEL 1 (Right L4/5 MIS Decompression) (Right) at the request of Martha Upton MD for consultation. My final recommendation will be communicated back to the requesting physician by way of shared medical record or letter. Subjective The patient has the following: ACTIVE PROBLEM LIST High Cholesterol Hypertension Vitamin D Deficiency Anxiety Asthma Depression Flaccid Tetraplegia (Hcc) Hepatic Steatosis Gastroesophageal Reflux Disease Hidradenitis Suppurativa COVID-19 Immunization Status Overdue - Covid-19 Vaccine () Overdue since 04/14/2023 02/17/2023 Imm Admin: COVID-19 vaccine, age 12+ yr, season (PFIZER-BIONTECH) 06/30/2021 Imm Admin: COVID-19 original vaccine, age 12+ yr, monovalent (PFIZER-BIONTECH - BURNS TOP) 12/11/2020 Imm Admin: COVID-19 original vaccine, age 12+ yr, monovalent (PFIZER-BIONTECH - PURPLE TOP) Only the first 3 history entries have been loaded, but more history exists. CHIEF COMPLAINT: pre op HPI: Dima Nice is a 63 year old female presenting for pre-anesthesia consultation. Pt has history of lumbar spinal stenosis. Above procedure recommended to manage symptoms. Procedure scheduled on 08/25/2023 at [facility]. REVIEW OF SYSTEMS: General: No weight loss, malaise or fevers. Neurological: Positive for: seizures (One seizure as a child, never recurred, never on medications). Negative for: headaches, multiple sclerosis, Parkinson's disease, peripheral neuropathy, TIA and strokes. Respiratory: Positive for: asthma, COPD and tobacco use. Negative for: current cough, dyspnea, home oxygen, URI < 2 weeks and obstructive sleep apnea. Cardiovascular: Denies dizziness or syncope. Positive for: hyperlipidemia and hypertension Negative for: AICD/PPM, arrhythmia, CAD, chest pain, CHF, DVT/PE, recent MD, murmur/valvular heart disease, open heart surgery and valve surgery. GI: Positive for: GERD (HH) Negative for: abdominal pain, GI bleed <30 days, hepatitis, liver disease, nausea and vomiting. : Denies kidney disease Positive for: frequent urination and urgency. Negative for: dysuria, hematuria and urinary tract infection. Endocrine: Negative for: diabetes mellitus, hyperthyroidism and hypothyroidism. Hematology: Negative for: anemia, bruises/bleeds easily, factor V Leiden, hemophilia, thrombocytopenia and von Willebrand disease. Oncology: No history of CA metastasis, chemo within 30 days, or radiotherapy within 90 days. No history of oncological symptoms or problems. Psych: Positive for: anxiety (Lorazepam PRN - rare use) and depression. Negative for: bipolar disorder. Musculoskeletal: See HPI. Skin: Chronic skin issues comment: Humira once a week - HS PAST MEDICAL HISTORY Diagnosis Date Allergies Anxiety Arthritis Depression Gout Hiatal hernia High cholesterol Hydradenitis Hypertension Lyme disease triggered severe arthritis Vitamin D deficiency PAST SURGICAL HISTORY Procedure Laterality Date APPENDECTOMY HX BIOPSY BREAST benign COLONOSCOPY SCREENING 30 years ago per patient HYSTERECTOMY FAMILY HISTORY Problem Relation Age of Onset Immune Deficiency Mother Celiac Disease Father Heart Father Diabetes Paternal Grandmother Celiac Disease Other many family members Colon Cancer No Family History Anesthesia Problems No Family History Social History Tobacco Use Smoking status: Every Day Packs/day: 1 Types: Cigarettes Start date: 12/25/1973 Smokeless tobacco: Never Tobacco comments: 5/ day, nicotine patches Vaping Use Vaping Use: Never used Substance Use Topics Alcohol use: Yes Alcohol/week: 3.0 standard drinks of alcohol Types: 3 Glasses of Wine (5oz) per week Comment: couple times/week Drug use: Not Currently Types: Marijuana Comment: has medical marijuana card, hasn't used since June 2023 Prior to Admission medications as of 07/13/23 0956 Medication Sig Last Dose Taking baclofen 15 mg tablet Take 10 mg by mouth as needed. Taking Yes fluticasone prp-sod.chl,bicarb 50 mcg- 0.9 % ksps Use 2 Sprays in the nose once daily. Taking Yes traMADol (ULTRAM) 50 mg tablet Take 50 mg by mouth every 8 hours as needed for pain. Taking Yes chlorthalidone (HYGROTON) 25 mg tablet Take 25 mg by mouth once daily. Taking Yes LORazepam (ATIVAN) 0.5 mg Taking Yes rosuvastatin (CRESTOR) 40 mg tablet Take 40 mg by mouth once daily. Taking Yes allopurinol (ZYLOPRIM) 300 mg tablet TAKE 1/2 (ONE-HALF) TABLET BY MOUTH IN THE MORNING Taking Yes budesonide-formoterol (SYMBICORT) 80-4.5 mcg/actuation inhaler Inhale 2 Puffs as instructed twice daily. Taking Yes HUMIRA,CF, PEN 40 mg/0.4 mL pen kit Inject 40 mg subcutaneously one time a week. Mondays Taking Yes omeprazole (PRILOSEC) 20 mg capsule Take 1 capsule by mouth once daily. Taking Yes pravastatin (PRAVACHOL) 20 mg tablet Take 1 tablet by mouth once daily. Taking Yes meloxicam (MOBIC) 15 mg tablet Take 0.5 tablets by mouth twice daily. Patient taking differently: Take 7.5 mg by mouth once daily. Taking Yes cholecalciferol, Vitamin D3, (VITAMIN D3) 1,250 mcg (50,000 unit) cap capsule Take 1 capsule by mouth one time a week. Taking Yes citalopram hydrobromide (CELEXA ORAL) Take 30 mg by mouth once daily. Taking Yes lisinopril (ZESTRIL, PRINIVIL) 20 mg tablet Take 20 mg by mouth once daily. Taking Yes albuterol HFA (PROAIR HFA) 90 mcg/actuation inhaler Inhale 2 Puffs as instructed every 6 hours as needed. Taking Yes cyclobenzaprine (FLEXERIL) 10 mg tablet Take 1 tablet by mouth three times daily as needed for muscle spasm. No medication comments found. ALLERGIES Allergen Reactions Codeine Other: See Comments Mind changes Objective PHYSICAL EXAM: General: alert and oriented and healthy appearance. Pertinent negatives noted - not distressed. Skin: normal color, no rash or lesions. HEENT: EOM intact, pupils equal round and pupils reactive to light. Pertinent negatives noted - no carotid bruit. Cardiovascular: regular rate and rhythm, normal S1 and S2, no rub, murmurs, or gallop. Respiratory: normal breath sounds, no wheezes or crackles. No chest wall deformity or tenderness. Abdomen: bowel sounds present and soft. Pertinent negatives noted - not tender. Extremities: Positive for edema. Pertinent negatives noted - no cellulitis, no clubbing, no deformity and no joint tenderness. Neurological: normal cognition and motor skills. Gait normal. No weakness or sensory deficit. PAIN ASSESSMENT: Pain Pain Level: 3 Pain Location: Back-Lower Description: Sharp, Tingling Frequency: Intermittent VITALS: BP 126/79 Pulse 76 Temp 99.1 Resp 20 Ht 5' 3" (1.60m) Wt 267 lb 13.7 oz (121.5kg) SpO2 96% BMI 47.46 kg/(m^2). Diagnostic tests reviewed for today's visit: Lab Value Units Date High Low HB No results within date range. HCT No results within date range. WBC No results within date range. PLT No results within date range. NA No results within date range. K No results within date range. GLUC No results within date range. BUN No results within date range. CREAT No results within date range. PTSEC No results within date range. INR No results within date range. APTT No results within date range. ALT No results within date range. AST No results within date range. TBILI No results within date range. TSH No results within date range. Lab Value Units Date High Low HCGQT No results within date range. UHCG No results within date range. HCG, BODY* No results within date range. Lab Value Units Date High Low ABORHD No results within date range. ABSCREEN No results within date range. No results found for: "HBA1C" No results found for this or any previous visit (from the past 8760 hour(s)). No results found for this or any previous visit (from the past 76067 hour(s)). Assessment Patient has the following medical conditions which may affect kat-operative course: High cholesterol Assessment: Adherent to statin therapy. Hypertension Assessment: Follows with PCP, adherent to RX. In office today BP: 126/79 Asthma Assessment: Follows with pulmonary. Breathing is at baseline. Adherent to inhaled therapies, Symbicort, PRN albuterol (no recent albuterol need. On exam, lungs CTA b/l. SpO2 96% on room air. Gastroesophageal reflux disease Assessment: Adherent to statin. Hepatic steatosis Assessment: Follows with PCP, noted on imaging. LFTs wnl. Hidradenitis suppurativa Assessment: Follows with dermatology. On Humira weekly - prescriber encouraged continued use. Stable, no current infections. Depression Assessment: Depression and anxiety. On rx, stable per pt. Mcdaniels Activity Status Index: METS: Climb a flight of stairs or walk up a hill (5.50 METs) DASI Score: 5.5 Patient denies any chest pain or undue shortness of breath with the above physical activity. Patient is limited most or all of the time (uses scooter, mobility device). Clinical Frailty Scale: 4. Apparently vulnerable STOP-Bang Score: Snores loudly Denies feeling tired, fatigued, or sleepy during the daytime Has not been observed to stop breathing or choking/gasping during sleep STOP-Bang Score: 1 [id number] Score: Hypertension history: Yes [id number] Score: ANESTHESIA FINDINGS: Intubation History: No history of difficult intubation. No abnormal airway history Significant Anesthesia Considerations: potential difficult IV/vein access Airway History: No history of difficult airway No abnormal airway history I - PHYSICAL EVALUATION AIRWAY Patient intubated: No. Tracheostomy tube not present Mallampati: III. TM distance: >3 FB. Neck ROM: full ROM without neurological symptoms. Mouth opening: adequate. Short neck: no. Thick neck: no Lip Bite Test: II Microretrognathia/Micronagthia/Rec essed Chin: No DENTAL Dental findings: teeth intact. Additional comments: + caps/crowns. II - ANESTHESIA PLAN Beta Mark Monitoring Plan Post Procedure Analgesic Plan Prepared for Surgery: optimally prepared for surgery. Labs and outside ECG (completed with PCP on 07/28/23 - uploading to scanned docs) - reviewed and acceptable. CONSULTS: Patient does not require consults for optimization at this time Planned Anesthetic: The Following Tests/Procedures Have Been Initiated: Orders Placed This Encounter baclofen 15 mg tablet Sig: Take 10 mg by mouth as needed. fluticasone prp-sod.chl,bicarb 50 mcg- 0.9 % ksps Sig: Use 2 Sprays in the nose once daily. traMADol (ULTRAM) 50 mg tablet Sig: Take 50 mg by mouth every 8 hours as needed for pain. chlorthalidone (HYGROTON) 25 mg tablet Sig: Take 25 mg by mouth once daily. ECG (IN OFFICE) Instructions Given to Patient: Instructions located in the after visit summary. Patient given verbal and written preop instructions and voices comprehension and compliance. SIGNATURE: Ruth Wilcox PA-C PATIENT NAME: Dima Nice DATE: 08/11/2023 TIME: 3:57 PM PAGER/CONTACT #: documented in this encounter [facility] 08-09-2023 Telephone encounter Note NEUROSURGERY CARE COORDINATION [facility] QUICK NOTE Notified by Market Analyst that patient returned call to office at this time, call transferred to this RN, name verified, states pain management team recommending nerve block in lower lumbar spine, informed message will be sent to NSGY team with Dr. Lorenzo regarding this and that response will be relayed afterwards, states understanding. Routing to NSGY team. CONRADO Farah, RN August 09, 2023 11:35 AM [facility] 08-09-2023 Telephone encounter Note NEUROSURGERY CARE COORDINATION [facility] QUICK NOTE Chart reviewed. Patient scheduled for Right L4/[address] Lorenzo for 08/24 at [facility]. Returned call to patient at phone number below, verified name and , discussed below, aware to receive Humira instructions from ordering/managing provider and aware this will also be reviewed during upcoming PACC appointment scheduled for 08/10, states unsure of exact injection being recommended by pain management team at this time, states will contact pain management team and then notify this office and this RN afterwards of exact injection, aware that this RN will then confirm with NSGY team if OK to proceed with injection prior to surgery with Dr. Lorenzo, states understanding. CONRADO Farah, RN August 09, 2023 11:12 AM [facility] 08-09-2023 Telephone encounter Note Call received for Martha Lorenzo MD regarding Dima Nice 1960. Caller/Self: Dima Nice Patient Identified by Name and : Yes Was permission obtained from patient ? Yes Reason for Call: Ms. Nice has 2 questions she would like answered as soon as possible 1) Can she continue taking her Humira up to surgery date? 2) Her pain management doctor would like her to get a nerve block. Can she get a nerve block 2 1/2 weeks prior to surgery? She would like to Last Distance Health Visit: 08/02/[address] Lorenzo Next scheduled appointment: Surgery on 08/25/[address] Lorenzo Best number to reach caller: [phone] Is it OK to leave a detailed voice message? Yes Juanita Gallegos [facility] Work Phone: 08-04-2023 Telephone encounter Note NEUROSURGERY CARE [facility] QUICK NOTE Chart reviewed. Patient scheduled for Right L4/[address] Lorenzo for 08/24 at [facility]. Noted trek for surgical success class scheduled for 08/23. Returned call to patient at phone number below, verified name and , discussed below, discussed trek for surgical success class, all questions answered, states understanding, denies needing anything further, instructed to contact office again as needed. No further action required by this RN at this time. CONRADO Farah, RN August 04, 2023 4:52 PM [facility] 08-04-2023 Miscellaneous Notes NEUROSURGERY [facility] QUICK NOTE Chart reviewed. Patient scheduled for Right L4/[address] Lorenzo for 08/24 at [facility]. Noted trek for surgical success class scheduled for 08/23. Returned call to patient at phone number below, verified name and , discussed below, discussed trek for surgical success class, all questions answered, states understanding, denies needing anything further, instructed to contact office again as needed. No further action required by this RN at this time. CONRADO Farah, RN August 04, 2023 4:52 PM Call received for Martha Lorenzo MD regarding Dima Mcphersonood 1960. Caller: Self Patient Identified by Name and : Yes Was permission obtained from patient ? Yes Reason for Call: Patient requesting that "Trek For Success" video be available for view in her MC. Patient was informed to contact office for video access. Last Office Visit: 07/13/2023 Next scheduled appointment: 10/03/2023 Best number to reach caller: N/A Amrita Hernandez documented in this encounter [facility] 08-04-2023 Telephone encounter Note Call received for Martha Lorenzo MD regarding Dima R Holly 1960. Caller: Self Patient Identified by Name and : Yes Was permission obtained from patient ? Yes Reason for Call: Patient requesting that "Trek For Success" video be available for view in her MC. Patient was informed to contact office for video access. Last Office Visit: 07/13/2023 Next scheduled appointment: 10/03/2023 Best number to reach caller: N/A Amrita Hernandez [facility] 08-04-2023 Telephone encounter Note Spoke with pt to schedule PACC, She requested a call back tomorrow [facility] 08-04-2023 Miscellaneous Notes Spoke with pt to schedule PACC, She requested a call back tomorrow documented in this encounter [facility] 08-03-2023 Telephone encounter Note NEUROSURGERY CARE COORDINATION [facility] SURGERY SCHEDULING ? See Dr. Lorenzo's ANDRES note dated yesterday 08/01. Called patient at home/mobile phone number, verified name and . Spoke with patient. Discussed surgery scheduling process. Patient Dima Nice accepts surgery date of August [address] Lorenzo at [facility]. Planned procedure is Right L4/5 MIS Decompression. Discussed need for both medical clearance and financial clearance prior to scheduled surgery and discussed process of both. ? PAT will be completed at [facility]; informed message will be sent to front tender staff shortly to call patient in order to assist with scheduling this appointment, this RN to f/u with this, PACC questionnaire completed. ? Medications reviewed: Yes. Medications to be stopped prior to surgery: NSAIDS and vitamins and supplements to be stopped for 7 days prior to scheduled surgery. ? Additional pre-op clearances needed: per [facility] provider recommendations. ? Any implanted devices: No. ? Transplant History: No. ? Patient will require optimization lab work: per [facility] provider recommendations. ? Questions answered. Patient verbalizes understanding via teach back. ? Additional comments: Discussed need for PACC appointment prior to scheduled surgery and discussed process of this, see above, pre-op COVID test not needed d/t current [facility] policy stating no longer needed prior to surgery. Informed Pre-/Post-Op Education materials will be mailed to patient and informed that this RN will call patient closer to DOS in order to provide education over telephone, patient to purchase Hibiclens soap from any local pharmacy, patient also aware can draft roller picker both Hibiclens soap and CHG wipes at front tender of this office. Discussed process of having both x-ray scoliosis and CT lumbar spine completed as ordered prior to surgery per Dr. Lorenzo, this RN to f/u with this. Discussed recommended but optional trek for surgical success class and provided information sheet. Pre-Op Melissa Educational video also ordered. All questions answered, states understanding, instructed to contact office as needed. Staff message to be sent to Dr. Lorenzo's Market Analyst shortly in order to notify of scheduled surgery. This RN to f/u with this. No further action required by this RN at this time. CONRADO Farah, RN August 03, 2023 12:02 PM [facility] 08-03-2023 Miscellaneous Notes NEUROSURGERY CARE COORDINATION [facility] SURGERY SCHEDULING ? See Dr. Lorenzo's ANDRES note dated yesterday 08/01. Called patient at home/mobile phone number, verified name and . Spoke with patient. Discussed surgery scheduling process. Patient Dima Nice accepts surgery date of August [address] Lorenzo at [facility]. Planned procedure is Right L4/5 MIS Decompression. Discussed need for both medical clearance and financial clearance prior to scheduled surgery and discussed process of both. ? PAT will be completed at [facility]; informed message will be sent to front tender staff shortly to call patient in order to assist with scheduling this appointment, this RN to f/u with this, PACC questionnaire completed. ? Medications reviewed: Yes. Medications to be stopped prior to surgery: NSAIDS and vitamins and supplements to be stopped for 7 days prior to scheduled surgery. ? Additional pre-op clearances needed: per [facility] provider recommendations. ? Any implanted devices: No. ? Transplant History: No. ? Patient will require optimization lab work: per [facility] provider recommendations. ? Questions answered. Patient verbalizes understanding via teach back. ? Additional comments: Discussed need for PACC appointment prior to scheduled surgery and discussed process of this, see above, pre-op COVID test not needed d/t current [facility] policy stating no longer needed prior to surgery. Informed Pre-/Post-Op Education materials will be mailed to patient and informed that this RN will call patient closer to DOS in order to provide education over telephone, patient to purchase Hibiclens soap from any local pharmacy, patient also aware can draft roller picker both Hibiclens soap and CHG wipes at front tender of this office. Discussed process of having both x-ray scoliosis and CT lumbar spine completed as ordered prior to surgery per Dr. Lorenzo, this RN to f/u with this. Discussed recommended but optional trek for surgical success class and provided information sheet. Pre-Op Melissa Educational video also ordered. All questions answered, states understanding, instructed to contact office as needed. Staff message to be sent to Dr. Lorenzo's Market Analyst shortly in order to notify of scheduled surgery. This RN to f/u with this. No further action required by this RN at this time. CONRADO Farah, RN August 03, 2023 12:02 PM documented in this encounter [facility] 08-02-2023 Note HNO ID: [id number] Author: MARTHA LORENZO MD Service: ? Author Type: Physician Type: Progress Notes Filed: 08/03/2023 12:26 Note Text: VIRTUAL SPINE SURGERY ESTABLISHED VISIT DATE OF SERVICE: 08/03/2023 DATE OF LAST VISIT: 07/13/2023 Virtual connection via: Zoom I have communicated my name and active licensure. The patient's identity and physical location were verified at the time of this visit. Either the patient or their legal treasury representative has been informed of the risks and benefits of -- and alternatives to -- treatment through a remote evaluation and consents to proceed with the evaluation remotely. SPINE SURGERY OUTPATIENT CLINIC VISIT SERVICE DATE: 07/13/2023 PCP: Casey Chang MD REFERRING PROVIDER: Gia Fernandes PA-C Consult requested for an opinion regarding the evaluation and treatment of a spinal pathology. My final impression and recommendations will be communicated back to the requesting physician by way of the shared medical record or letter via US mail. 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 To a much lesser extent, she reports left sided pain in the same distribution to a much lower extent. She reports right foot drop for two months. She reports low back pain much more mild (VAS 6/10). Lumbar injections three months ago provided only transient relief. 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 within the past 6 months EMG (07/28/23): right L5 radiculopathy without a peroneal neuropathy Extensive electrodiagnostic examination of the right lower extremity and additional nerve conduction studies of the left lower extremity reveals the following changes: . 1. Absent sural sensory response bilaterally is likely technical in nature and secondary to severe LE edema and body habitus. Thus, no definite evidence of a large fiber polyneuropathy. Clinical correlation is recommended. 2. Chronic motor axon loss changes consistent with intraspinal canal lesions/process affecting the right L5 root or segment (i.e, motor radiculopathy), mild in degree electrically, being accompanied by evidence of active or ongoing motor fiber loss in right EDB muscle. Limited contralateral NEE revealed no significant abnormalities. 3. No evidence of a right peroneal neuropathy. Bone Mineral Density ACTIVE PROBLEM LIST High Cholesterol Hypertension Vitamin D Deficiency PAST MEDICAL HISTORY Diagnosis Date Allergies Anxiety Arthritis Depression Gout Hiatal hernia High cholesterol Hydradenitis Hypertension Lyme disease triggered severe arthritis Vitamin D deficiency PAST SURGICAL HISTORY Procedure Laterality Date APPENDECTOMY HX BIOPSY BREAST benign COLONOSCOPY SCREENING 30 years ago per patient HYSTERECTOMY FAMILY HISTORY Problem Relation Age of Onset Immune Deficiency Mother Celiac Disease Father Heart Father Diabetes Paternal Grandmother Celiac Disease Other many family members Colon Cancer No Family History Social History Tobacco Use Smoking status: Every Day Packs/day: 1 Types: Cigarettes Start date: 12/25/1973 Smokeless tobacco: Never Vaping Use Vaping Use: Never used Substance Use Topics Alcohol use: Yes Alcohol/week: 3.0 standard drinks of alcohol Types: 3 Glasses of Wine (5oz) per week Comment: couple times/week Drug use: Never Comment: has medical marijuana card ALLERGIES Allergen Reactions Codeine Other: See Comments Mind changes MEDICATIONS: LORazepam (ATIVAN) 0.5 mg rosuvastatin (CRESTOR) 40 mg tablet Take 40 mg by mouth once daily. allopurinol (ZYLOPRIM) 300 mg tablet TAKE 1/2 (ONE-HALF) TABLET BY MOUTH IN THE MORNING budesonide-formoterol (SYMBICORT) 80-4.5 mcg/actuation inhaler Inhale 2 Puffs as instructed twice daily. HUMADAMCF, PEN 40 mg/0.4 mL pen kit omeprazole (PRILOSEC) 20 mg capsule Take 1 capsule by mouth once daily. pravastatin (PRAVACHOL) 20 mg tablet Take 1 tablet by mouth once daily. meloxicam (MOBIC) 15 mg tablet Take 0.5 tablets by mouth twice daily. cholecalciferol, Vitamin D3, (VITAMIN D3) 1,250 mcg (50,000 unit) cap capsule Take 1 capsule by mouth one time a week. cyclobenzaprine (FLEXERIL) 10 mg tablet Take 1 tablet by mouth three times daily as needed for muscle spasm. citalopram hydrobromide (CELEXA ORAL) Take 30 mg by mouth once daily. lisinopril (ZESTRIL, PRINIVIL) 20 mg tablet Take 20 mg by mouth once daily. albuterol HFA (PROAIR HFA) 90 mcg/actuation inhaler Inhale 2 Puffs as instructed every 6 hours as needed. Patient Entered Questionnaires 07/26/2023 Spine Questions Pain Location: Leg Pain Duration: 3-6 months Pain over last 6 months: Every day or nearly every day in the past 6 (more content not included)... [facility] 08-02-2023 History of Present illness Narrative Images from the original note were not included. SPINE SURGERY OUTPATIENT CLINIC VISIT SERVICE DATE: 07/13/2023 PCP: Casey Chang MD REFERRING PROVIDER: Gia Fernandes PA-C Consult requested for an opinion regarding the evaluation and treatment of a spinal pathology. My final impression and recommendations will be communicated back to the requesting physician by way of the shared medical record or letter via US mail. 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 To a much lesser extent, she reports left sided pain in the same distribution to a much lower extent. She reports right foot drop for two months. She reports low back pain much more mild (VAS 6/10). Lumbar injections three months ago provided only transient relief. 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 within the past 6 months EMG (07/28/23): right L5 radiculopathy without a peroneal neuropathy Extensive electrodiagnostic examination of the right lower extremity and additional nerve conduction studies of the left lower extremity reveals the following changes: . 1. Absent sural sensory response bilaterally is likely technical in nature and secondary to severe LE edema and body habitus. Thus, no definite evidence of a large fiber polyneuropathy. Clinical correlation is recommended. 2. Chronic motor axon loss changes consistent with intraspinal canal lesions/process affecting the right L5 root or segment (i.e, motor radiculopathy), mild in degree electrically, being accompanied by evidence of active or ongoing motor fiber loss in right EDB muscle. Limited contralateral NEE revealed no significant abnormalities. 3. No evidence of a right peroneal neuropathy. Bone Mineral Density ACTIVE PROBLEM LIST High Cholesterol Hypertension Vitamin D Deficiency PAST MEDICAL HISTORY Diagnosis Date Allergies Anxiety Arthritis Depression Gout Hiatal hernia High cholesterol Hydradenitis Hypertension Lyme disease triggered severe arthritis Vitamin D deficiency PAST SURGICAL HISTORY Procedure Laterality Date APPENDECTOMY HX BIOPSY BREAST benign COLONOSCOPY SCREENING 30 years ago per patient HYSTERECTOMY FAMILY HISTORY Problem Relation Age of Onset Immune Deficiency Mother Celiac Disease Father Heart Father Diabetes Paternal Grandmother Celiac Disease Other many family members Colon Cancer No Family History Social History Tobacco Use Smoking status: Every Day Packs/day: 1 Types: Cigarettes Start date: 12/25/1973 Smokeless tobacco: Never Vaping Use Vaping Use: Never used Substance Use Topics Alcohol use: Yes Alcohol/week: 3.0 standard drinks of alcohol Types: 3 Glasses of Wine (5oz) per week Comment: couple times/week Drug use: Never Comment: has medical marijuana card ALLERGIES Allergen Reactions Codeine Other: See Comments Mind changes MEDICATIONS: LORazepam (ATIVAN) 0.5 mg rosuvastatin (CRESTOR) 40 mg tablet Take 40 mg by mouth once daily. allopurinol (ZYLOPRIM) 300 mg tablet TAKE 1/2 (ONE-HALF) TABLET BY MOUTH IN THE MORNING budesonide-formoterol (SYMBICORT) 80-4.5 mcg/actuation inhaler Inhale 2 Puffs as instructed twice daily. HUMIRA,CF, PEN 40 mg/0.4 mL pen kit omeprazole (PRILOSEC) 20 mg capsule Take 1 capsule by mouth once daily. pravastatin (PRAVACHOL) 20 mg tablet Take 1 tablet by mouth once daily. meloxicam (MOBIC) 15 mg tablet Take 0.5 tablets by mouth twice daily. cholecalciferol, Vitamin D3, (VITAMIN D3) 1,250 mcg (50,000 unit) cap capsule Take 1 capsule by mouth one time a week. cyclobenzaprine (FLEXERIL) 10 mg tablet Take 1 tablet by mouth three times daily as needed for muscle spasm. citalopram hydrobromide (CELEXA ORAL) Take 30 mg by mouth once daily. lisinopril (ZESTRIL, PRINIVIL) 20 mg tablet Take 20 mg by mouth once daily. albuterol HFA (PROAIR HFA) 90 mcg/actuation inhaler Inhale 2 Puffs as instructed every 6 hours as needed. Patient Entered Questionnaires 07/26/2023 Spine Questions Pain Location: Leg Pain Duration: 3-6 months Pain over last 6 months: Every day or nearly every day in the past 6 months Symptoms from neck/cervical spine: No Employment Status: Retired Involved in law suit/legal claim: No PROMIS Score Percentiles 07/26/2023 Physical Health Physical Function Percentile 2 Sleep Percentile 27* Fatigue Percentile 10 Pain Interference Percentile 2 07/26/2023 PROMIS SOCIAL ROLE SCORE Social Role Satisfaction Percentile 14 07/26/2023 PROMIS Global Health Scale Physical Health Percentile 10 Mental Health Percentile 13 Percentiles provide an indication of how the patient's score ranks in relation to the general population. Higher percentile rankings indicate better function/quality of life. 50th percentile is the average of the general population and indicates half of respondents had a worse score. Depression Screenin07/26/2023 PHQ-9 Score 7 07/26/2023 PHQ-9 Self-harm Question Question 9 Not at all PHQ-9 Self-Harm (Item 9) response options: 0 Not at all 1 Several days 2 More than half the days 3 Nearly every day PHQ-9 Levels: 0-4 No to mild depression 5-9 Mild depression 10-14 Moderate depression 15-19 Moderately severe depression 20-27 Severe depression OBJECTIVE: PHYSICAL EXAM There were no vitals taken for this visit. Constitutional Appears stated age, pleasant Psychiatric Alert and oriented to person, place, and time Normal speech and content. Appropriate mood and affect Pulmonary Breathing comfortably on room air Neurologic Cranial nerves are intact as per the following exam: II-vision grossly normal, PERRLA, III/IV/- EOMI, VII-hearing grossly normal, V-clench jaw, VII- raise eyebrows bilaterally; smile/frown intact and symmetric, able to bar teeth and puff out cheeks, XII- Able to protrude tongue and move it side to side, IX/X- swallow intact; says Ah Deep Tendon Reflexes Right Left Biceps 2+ 2+ Brachioradialis 2+ 2+ Patellar 2+ 2+ Rodriguez's Reflexes negative Sensation: sparing of sensation in the webspace between the first two toes on the right. This would suggest a peroneal nerve etiology Heel-to-Toe Test (Tandem Gait) within normal limits Musculoskeletal Manual Muscle Testing Right Left Shoulder Abduction (C5) 5/5 5/5 Elbow Flexion 5/5 5/5 Elbow Extension 5/5 5/5 Wrist Extension (C6) 5/5 5/5 Finger Extension (C7) 5/5 5/5 Finger Abduction (C8) 5/5 5/5 Hip Flexion 5/5 5/5 Knee Extension 5/5 5/5 Dorsiflexion (L4) 5/5 5/5 First Toe Extension (L5) 5/5 5/5 Plantar Flexion (S1) 5/5 5/5 Right eversion weakness Skin No rashes, bruising or other skin lesions. No visible edema DATA REVIEW [facility] records independently reviewed Imaging and outside records independently reviewed and findings are as follows: MRI L-spine (06/16/23): subcentimeter grade 1 anterolisthesis at L4-L5 contributing to moderate/severe degree of central canal and moderate degree bilateral foraminal stenosis greater right side. Alignment: Subcentimeter grade 1 anterolisthesis L4-5 level and mild degree of dextrocurvature distal thoracic-upper lumbar spine Bone marrow signal/fracture: No evidence of pathologic marrow infiltration. No evidence of acute or prior fracture. Degenerative disc/endplate degenerative changes most prominent L2-3 level Conus: The conus is within normal limits of signal intensity and morphology. Spinal cord terminates at the T12-L1 level. Cauda equina nerve roots appear unremarkable Paraspinal soft tissues: Paraspinal soft tissues are within normal limits. Lower thoracic spine: Visualized lower thoracic canal and foramina are patent. L1-L2: Canal and foramina are patent. No disc abnormalities L2-L3: Mild degree of degenerative central canal and foraminal narrowing secondary posterior endplate hypertrophy eccentric towards left side and posterior hypertrophic changes L3-L4: Mild degree of degenerative central canal and foraminal narrowing secondary posterior endplate hypertrophy and posterior hypertrophic changes L4-L5: Subcentimeter grade 1 anterolisthesis, posterior endplate upper/disc complex and hypertrophy the posterior elements contributing to moderate/severe degree of central canal and moderate degree bilateral foraminal stenosis greater right side. L5-S1: Partial sacralization. Bilateral facet joint arthropathy Sacrum and iliac wings: The visualized sacrum and iliac wings are within normal limits. 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 She endorses weakness of right foot x2 months. I initially though that these symptoms like arose from subcentimeter grade 1 anterolisthesis at L4-L5 contributing to moderate/severe degree of central canal and moderate degree bilateral foraminal stenosis greater right side. However, the weakness is localized to EVERSION only; moreover, exam demonstrates sparing of sensation in the webspace between the first two toes on the right. This would suggest a peroneal nerve etiology. EMG suggested right L5 radiculopathy without a peroneal neuropathy so we will proceed with spinal surgery Recommend Minimally-invasive right L4-L5 decompression CT L-spine to evaluate the bony anatomy for surgical planning. The presence of calcified intervertebral discs, ankylosed joints, and/or abnormal morphology on the CT scan are essential in tailoring the appropriate operation. Scoliosis x-ray I counseled the patient on the deleterious effects of the current smoking usage (1 packs/ day). We discussed, at length, the importance of smoking cessation for at least three months before surgery and indefinitely after surgery. A nicotine test will be ordered prior to surgery. Patient understands that the scheduled operation may be canceled if smoking continues. I would prefer to hold surgery until BMI < 40 and smoking cessation; however, the weakness x2 months warrants surgical intervention. Risks and benefits of the operation were discussed at length with the patient. Benefits are intended to prevent worsening of the weakness; I cannot promise the weakness will improve. The back pain will NOT improve. Risks unique to the operation include injury to the nerve roots, which may lead to paralysis, bowel/bladder incontinence, ataxia, and/or dysesthesias. Risks generalized to any procedure in medicine include infection, bleeding, thrombosis (blood clots can lead to strokes, heart attacks, pulmonary emboli in the lungs, and deep venous thromboses in the arms/ legs), and . I discussed these risks are all elevated given the smoking and obesity. We discussed the chances of dural tears with subsequent cerebrospinal fluid leaks. Medical Decision Making: Problems: Moderate: 2+ stable chronic illnesses Data: Unique source(s) for external note(s) reviewed: 3+ Unique test result(s) reviewed: 3+ Unique test(s) ordered: 3+ Assessment requiring an independent historian(s) Independent interpretation of test from other physician/QHCP Risk: Moderate: Decision on elective major surgery w/o risk factors Medical Decision Making Level: 4 - Moderate documented in this encounter [facility] 07-28-2023 Note HNO ID: [id number] Author: RONNIE POPE MD Service: ? Author Type: Physician Type: Progress Notes Filed: 07/28/2023 13:52 Note Text: UNIVERSAL PROTOCOL / SAFETY CHECKLIST Procedure to be Performed: EMG Sign In: A Moment of CARE was completed. Personnel directly involved with the procedure wore the appropriate PPE (Personal Protective Equipment). Patient/Surrogate Stated/Verified: PATIENT VERIFIED(optional for EMERGENT procedures): Patient name, Date of , Relevant allergies, and The intended procedure Time Out Communication: Intended patient and procedure match the source documents. Correct side/site marked and visible. Sign Out: SIGN OUT (optional for EMERGENT procedures): Post-procedure follow-up management communicated and Plan of Care Visit completed when applicable. PRINCE Schmid. Ronnie Pope MD [facility] 07-28-2023 History of Present illness Narrative UNIVERSAL PROTOCOL / SAFETY CHECKLIST Procedure to be Performed: EMG Sign In: A Moment of CARE was completed. Personnel directly involved with the procedure wore the appropriate PPE (Personal Protective Equipment). Patient/Surrogate Stated/Verified: PATIENT VERIFIED(optional for EMERGENT procedures): Patient name, Date of , Relevant allergies, and The intended procedure Time Out Communication: Intended patient and procedure match the source documents. Correct side/site marked and visible. Sign Out: SIGN OUT (optional for EMERGENT procedures): Post-procedure follow-up management communicated and Plan of Care Visit completed when applicable. BRIA Schmid MD documented in this encounter [facility] 07-28-2023 Evaluation + Plan note Associated Problem(s): Dependent edema Reassurance that this does not look like congestive heart failure and we discussed dependent edema in detail, she is to keep her legs elevated we will start her on chlorthalidone and get lab work assessing her proteins and blood count and a BNP to rule out congestive heart failure. [facility] 07-28-2023 Miscellaneous Notes Associated Problem(s): Dependent edema Reassurance that this does not look like congestive heart failure and we discussed dependent edema in detail, she is to keep her legs elevated we will start her on chlorthalidone and get lab work assessing her proteins and blood count and a BNP to rule out congestive heart failure. Associated Problem(s): Hypertension Controlled, will need to stop her amlodipine and start her on chlorthalidone so that we are not contributing to her edema with a blood pressure medication and actually helping to decrease it with chlorthalidone. Associated Problem(s): Dyspnea on exertion EKG done today was normal sinus rhythm no acute changes, we will schedule her for a echocardiogram. documented in this encounter [facility] 07-28-2023 Evaluation + Plan note Associated Problem(s): Hypertension Controlled, will need to stop her amlodipine and start her on chlorthalidone so that we are not contributing to her edema with a blood pressure medication and actually helping to decrease it with chlorthalidone. [facility] 07-28-2023 Evaluation + Plan note Associated Problem(s): Dyspnea on exertion EKG done today was normal sinus rhythm no acute changes, we will schedule her for a echocardiogram. [facility] 07-28-2023 History of Present illness Narrative Patient verified by last name and date of . Images from the original note were not included. 07/28/2023 Dima Nice (: 1960) is a 63 y.o. female , Established patient, here for evaluation of the following chief complaint(s): Edema, Shortness of Breath (Pt thinks CHF), and other (Discuss upcomming surgeries ) ASSESSMENT/PLAN: 1. Dyspnea on exertion Assessment & Plan: EKG done today was normal sinus rhythm no acute changes, we will schedule her for a echocardiogram. Orders: - Comprehensive metabolic panel - CBC auto differential - NT PRO BNP - ECG 12 lead - Transthoracic echocardiogram (TTE) complete with contrast, bubble, strain, and 3D PRN 2. Primary hypertension Assessment & Plan: Controlled, will need to stop her amlodipine and start her on chlorthalidone so that we are not contributing to her edema with a blood pressure medication and actually helping to decrease it with chlorthalidone. 3. Dependent edema Assessment & Plan: Reassurance that this does not look like congestive heart failure and we discussed dependent edema in detail, she is to keep her legs elevated we will start her on chlorthalidone and get lab work assessing her proteins and blood count and a BNP to rule out congestive heart failure. Orders: - NT PRO BNP Follow up if symptoms worsen or fail to improve. SUBJECTIVE/OBJECTIVE: HPI -Dima comes in today concerned about swelling in her legs she says that by the end of the day they are extremely big and with pitting edema, she also has been noticing increased shortness of breath with activity and she is concerned for congestive heart failure. 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 Blood pressure looks good today. She is on amlodipine which can contribute to dependent edema so we will try to get her off of that and start her on chlorthalidone. Review of Systems Constitutional: Negative for chills and fever. Respiratory: Positive for cough, shortness of breath and wheezing. Cardiovascular: Negative for chest pain and palpitations. Gastrointestinal: Negative for abdominal pain, blood in stool, constipation and diarrhea. Genitourinary: Negative for dyspareunia, dysuria, frequency, hematuria and urgency. Neurological: Negative for weakness and numbness. Psychiatric/Behavioral: Negative for dysphoric mood. The patient is not nervous/anxious. Vitals: 07/28/23 0831 BP: 135/86 Pulse: 80 SpO2: 96% Weight: 275 lb 12.8 oz (125 kg) Height: 5' 3" (1.6 m) Physical Exam Vitals and nursing note reviewed. Constitutional: General: She is not in acute distress. Appearance: Normal appearance. HENT: Head: Normocephalic. Mouth/Throat: Mouth: Mucous membranes are moist. Pharynx: Oropharynx is clear. Eyes: Extraocular Movements: Extraocular movements intact. Pupils: Pupils are equal, round, and reactive to light. Neck: Thyroid: No thyromegaly. Vascular: No carotid bruit. Cardiovascular: Rate and Rhythm: Normal rate and regular rhythm. Heart sounds: Normal heart sounds. No murmur heard. Pulmonary: Effort: Pulmonary effort is normal. Breath sounds: Normal breath sounds. Abdominal: General: Bowel sounds are normal. Palpations: Abdomen is soft. Musculoskeletal: General: Normal range of motion. Cervical back: Normal range of motion. Lymphadenopathy: Cervical: No cervical adenopathy. Skin: General: Skin is warm and dry. Neurological: General: No focal deficit present. Mental Status: She is alert and oriented to person, place, and time. Psychiatric: Mood and Affect: Mood normal. An electronic signature was used to authenticate this note. Casey Chang MD 07/28/2023 12:48 PM documented in this encounter [facility] 07-27-2023 Telephone encounter Note Spoke to patient, no questions. [facility] 07-27-2023 Miscellaneous Notes Spoke to patient, no questions. rob, thank you will see her at her appointment. Obviously if she starts feeling more short of breath or having any chest pain she should go to the emergency room immediately S: Patient spoke with [facility] nurse regarding sob, swollen feet, coughing, and increased urine output. B: Onset of symptoms/concern month. A: Patient has bilateral swollen toes, feet, and ankles, productive moist cough with clear to yellow mucous. Patient states they have been feeling shortness of breath over the past month but not at this time. Patient is talking in complete sentences. Patient states with activity they become short of breath. Patient also states they are urinating; especially more at night. Patient states the swelling is so bad that the ankles don't look like normal ankles; the skin is tight and shiny. Patient is able to walk with cane. Patient is not sure if the feet pain, numbness, tingling is from the back issues or from the swelling. Patient is going to have surgery in the near future and wants to determine what is going on with them. Patient mother had history of CHF and the patient feels this is what is going on with them. Denies chest pain, fever, no new calf pain, R: Appointment made with Dr. Chang for July 27 at 0830. Insurance and payor status verified. Negative responses to COVID screening. Advised patient should arrive 15 minutes early, bring photo ID, ins cards, medications. No further needs at this time. Patient instructed to call back with new or worsening symptoms. Reason for Disposition Patient wants to be seen Protocols used: Ankle [id number] documented in this encounter [facility] 07-27-2023 Telephone encounter Note okay, thank you will see her at her appointment. Obviously if she starts feeling more short of breath or having any chest pain she should go to the emergency room immediately [facility] 07-27-2023 Telephone encounter Note S: Patient spoke with [facility] nurse regarding sob, swollen feet, coughing, and increased urine output. B: Onset of symptoms/concern month. A: Patient has bilateral swollen toes, feet, and ankles, productive moist cough with clear to yellow mucous. Patient states they have been feeling shortness of breath over the past month but not at this time. Patient is talking in complete sentences. Patient states with activity they become short of breath. Patient also states they are urinating; especially more at night. Patient states the swelling is so bad that the ankles don't look like normal ankles; the skin is tight and shiny. Patient is able to walk with cane. Patient is not sure if the feet pain, numbness, tingling is from the back issues or from the swelling. Patient is going to have surgery in the near future and wants to determine what is going on with them. Patient mother had history of CHF and the patient feels this is what is going on with them. Denies chest pain, fever, no new calf pain, R: Appointment made with Dr. Chang for July 27 at 0830. Insurance and payor status verified. Negative responses to COVID screening. Advised patient should arrive 15 minutes early, bring photo ID, ins cards, medications. No further needs at this time. Patient instructed to call back with new or worsening symptoms. Reason for Disposition Patient wants to be seen Protocols used: Ankle [id number] [facility] 07-21-2023 History of Present illness Narrative Images from the original note were not included. [facility] [address] [place] [id number] Discharge Notification Patient Name: Dima Nice : 1960 Today's Date: 07/21/2023 Patient has not been seen since 06/14/23. The patient will be discharged at this time due to inactivity. The patient has not been seen for outpatient therapy in 30+ days and has not made contact to reschedule. The patient will require new referral/evaluation to resume therapy in the future. The patient will be discharged at this time. Please refer to initial evaluation or re-assessment for last goals/objective measures assessment and progress report. Thank you for this referral. For any questions on this patient s course of therapy, please call the clinic for clarification. Joana Schaefer PT documented in this encounter [facility] 07-13-2023 Note HNO ID: [id number] Author: MARTHA LORENZO MD Service: ? Author Type: Physician Type: Progress Notes Filed: 07/13/2023 10:14 Note Text: SPINE SURGERY OUTPATIENT CLINIC VISIT SERVICE DATE: 07/13/2023 PCP: Casey Chang MD REFERRING PROVIDER: Gia Fernandes PA-C Consult requested for an opinion regarding the evaluation and treatment of a spinal pathology. My final impression and recommendations will be communicated back to the requesting physician by way of the shared medical record or letter via US mail. 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 To a much lesser extent, she reports left sided pain in the same distribution to a much lower extent. She reports right foot drop for two months. She reports low back pain much more mild (VAS 6/10). Lumbar injections three months ago provided only transient relief. 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 within the past 6 months EMG Bone Mineral Density ACTIVE PROBLEM LIST High Cholesterol Hypertension Vitamin D Deficiency PAST MEDICAL HISTORY Diagnosis Date Allergies Anxiety Arthritis Depression Gout Hiatal hernia High cholesterol Hydradenitis Hypertension Lyme disease triggered severe arthritis Vitamin D deficiency PAST SURGICAL HISTORY Procedure Laterality Date APPENDECTOMY HX BIOPSY BREAST benign COLONOSCOPY SCREENING 30 years ago per patient HYSTERECTOMY FAMILY HISTORY Problem Relation Age of Onset Immune Deficiency Mother Celiac Disease Father Heart Father Diabetes Paternal Grandmother Celiac Disease Other many family members Colon Cancer No Family History Social History Tobacco Use Smoking status: Every Day Packs/day: 1 Types: Cigarettes Start date: 12/25/1973 Smokeless tobacco: Never Vaping Use Vaping Use: Never used Substance Use Topics Alcohol use: Yes Alcohol/week: 3.0 standard drinks of alcohol Types: 3 Glasses of Wine (5oz) per week Comment: couple times/week Drug use: Never Comment: has medical marijuana card ALLERGIES Allergen Reactions Codeine Other: See Comments Mind changes MEDICATIONS: LORazepam (ATIVAN) 0.5 mg rosuvastatin (CRESTOR) 40 mg tablet Take 40 mg by mouth once daily. allopurinol (ZYLOPRIM) 300 mg tablet TAKE 1/2 (ONE-HALF) TABLET BY MOUTH IN THE MORNING budesonide-formoterol (SYMBICORT) 80-4.5 mcg/actuation inhaler Inhale 2 Puffs as instructed twice daily. HUMIRA,CF, PEN 40 mg/0.4 mL pen kit omeprazole (PRILOSEC) 20 mg capsule Take 1 capsule by mouth once daily. pravastatin (PRAVACHOL) 20 mg tablet Take 1 tablet by mouth once daily. meloxicam (MOBIC) 15 mg tablet Take 0.5 tablets by mouth twice daily. cholecalciferol, Vitamin D3, (VITAMIN D3) 1,250 mcg (50,000 unit) cap capsule Take 1 capsule by mouth one time a week. cyclobenzaprine (FLEXERIL) 10 mg tablet Take 1 tablet by mouth three times daily as needed for muscle spasm. citalopram hydrobromide (CELEXA ORAL) Take 30 mg by mouth once daily. lisinopril (ZESTRIL, PRINIVIL) 20 mg tablet Take 20 mg by mouth once daily. albuterol HFA (PROAIR HFA) 90 mcg/actuation inhaler Inhale 2 Puffs as instructed every 6 hours as needed. Patient Entered Questionnaires PROMIS Score Percentiles Percentiles provide an indication of how the patient's score ranks in relation to the general population. Higher percentile rankings indicate better function/quality of life. 50th percentile is the average of the general population and indicates half of respondents had a worse score. Depression Screening: PHQ-9 Self-Harm (Item 9) response options: 0 Not at all 1 Several days 2 More than half the days 3 Nearly every day PHQ-9 Levels: 0-4 No to mild depression 5-9 Mild depression 10-14 Moderate depression 15-19 Moderately severe depression 20-27 Severe depression OBJECTIVE: PHYSICAL EXAM BP 126/78 (BP Site: Left Arm, BP Position: Sitting, BP Cuff Size: Large Adult) Pulse 77 Wt 125.7 kg (277 lb 1.6 oz) BMI 49.09 kg/m? Constitutional Appears stated age, pleasant Psychiatric Alert and oriented to person, place, and time Normal speech and content. Appropriate mood and affect Pulmonary Breathing comfortably on room air Neurologic Cranial nerves are intact as per the following exam: II-vision grossly normal, PERRLA, III/IV/- EOMI, VII-hearing grossly normal, V-clench jaw, VII- raise eyebrows bilaterally; smile/frown intact and symmetric, able to bar teeth and puff out cheeks, XII- Able to protrude tongue and move it side to side, IX/X- swallow intact; says ?Ah? Deep Tendon Reflexes Right Left Biceps 2+ 2+ Brachioradialis 2+ 2+ Patellar 2+ 2+ Rodriguez's Reflexes negative Sensation (more content not included)... [facility] 07-13-2023 History of Present illness Narrative Images from the original note were not included. SPINE SURGERY OUTPATIENT CLINIC VISIT SERVICE DATE: 07/13/2023 PCP: Casey Chang MD REFERRING PROVIDER: Gia Fernandes PA-C Consult requested for an opinion regarding the evaluation and treatment of a spinal pathology. My final impression and recommendations will be communicated back to the requesting physician by way of the shared medical record or letter via US mail. 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 To a much lesser extent, she reports left sided pain in the same distribution to a much lower extent. She reports right foot drop for two months. She reports low back pain much more mild (VAS 6/10). Lumbar injections three months ago provided only transient relief. 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 within the past 6 months EMG Bone Mineral Density ACTIVE PROBLEM LIST High Cholesterol Hypertension Vitamin D Deficiency PAST MEDICAL HISTORY Diagnosis Date Allergies Anxiety Arthritis Depression Gout Hiatal hernia High cholesterol Hydradenitis Hypertension Lyme disease triggered severe arthritis Vitamin D deficiency PAST SURGICAL HISTORY Procedure Laterality Date APPENDECTOMY HX BIOPSY BREAST benign COLONOSCOPY SCREENING 30 years ago per patient HYSTERECTOMY FAMILY HISTORY Problem Relation Age of Onset Immune Deficiency Mother Celiac Disease Father Heart Father Diabetes Paternal Grandmother Celiac Disease Other many family members Colon Cancer No Family History Social History Tobacco Use Smoking status: Every Day Packs/day: 1 Types: Cigarettes Start date: 12/25/1973 Smokeless tobacco: Never Vaping Use Vaping Use: Never used Substance Use Topics Alcohol use: Yes Alcohol/week: 3.0 standard drinks of alcohol Types: 3 Glasses of Wine (5oz) per week Comment: couple times/week Drug use: Never Comment: has medical marijuana card ALLERGIES Allergen Reactions Codeine Other: See Comments Mind changes MEDICATIONS: LORazepam (ATIVAN) 0.5 mg rosuvastatin (CRESTOR) 40 mg tablet Take 40 mg by mouth once daily. allopurinol (ZYLOPRIM) 300 mg tablet TAKE 1/2 (ONE-HALF) TABLET BY MOUTH IN THE MORNING budesonide-formoterol (SYMBICORT) 80-4.5 mcg/actuation inhaler Inhale 2 Puffs as instructed twice daily. HUMIRA,CF, PEN 40 mg/0.4 mL pen kit omeprazole (PRILOSEC) 20 mg capsule Take 1 capsule by mouth once daily. pravastatin (PRAVACHOL) 20 mg tablet Take 1 tablet by mouth once daily. meloxicam (MOBIC) 15 mg tablet Take 0.5 tablets by mouth twice daily. cholecalciferol, Vitamin D3, (VITAMIN D3) 1,250 mcg (50,000 unit) cap capsule Take 1 capsule by mouth one time a week. cyclobenzaprine (FLEXERIL) 10 mg tablet Take 1 tablet by mouth three times daily as needed for muscle spasm. citalopram hydrobromide (CELEXA ORAL) Take 30 mg by mouth once daily. lisinopril (ZESTRIL, PRINIVIL) 20 mg tablet Take 20 mg by mouth once daily. albuterol HFA (PROAIR HFA) 90 mcg/actuation inhaler Inhale 2 Puffs as instructed every 6 hours as needed. Patient Entered Questionnaires PROMIS Score Percentiles Percentiles provide an indication of how the patient's score ranks in relation to the general population. Higher percentile rankings indicate better function/quality of life. 50th percentile is the average of the general population and indicates half of respondents had a worse score. Depression Screening: PHQ-9 Self-Harm (Item 9) response options: 0 Not at all 1 Several days 2 More than half the days 3 Nearly every day PHQ-9 Levels: 0-4 No to mild depression 5-9 Mild depression 10-14 Moderate depression 15-19 Moderately severe depression 20-27 Severe depression OBJECTIVE: PHYSICAL EXAM BP 126/78 (BP Site: Left Arm, BP Position: Sitting, BP Cuff Size: Large Adult) Pulse 77 Wt 125.7 kg (277 lb 1.6 oz) BMI 49.09 kg/m Constitutional Appears stated age, pleasant Psychiatric Alert and oriented to person, place, and time Normal speech and content. Appropriate mood and affect Pulmonary Breathing comfortably on room air Neurologic Cranial nerves are intact as per the following exam: II-vision grossly normal, PERRLA, III/IV/- EOMI, VII-hearing grossly normal, V-clench jaw, VII- raise eyebrows bilaterally; smile/frown intact and symmetric, able to bar teeth and puff out cheeks, XII- Able to protrude tongue and move it side to side, IX/X- swallow intact; says Ah Deep Tendon Reflexes Right Left Biceps 2+ 2+ Brachioradialis 2+ 2+ Patellar 2+ 2+ Rodriguez's Reflexes negative Sensation: sparing of sensation in the webspace between the first two toes on the right. This would suggest a peroneal nerve etiology Heel-to-Toe Test (Tandem Gait) within normal limits Musculoskeletal Manual Muscle Testing Right Left Shoulder Abduction (C5) 5/5 5/5 Elbow Flexion 5/5 5/5 Elbow Extension 5/5 5/5 Wrist Extension (C6) 5/5 5/5 Finger Extension (C7) 5/5 5/5 Finger Abduction (C8) 5/5 5/5 Hip Flexion 5/5 5/5 Knee Extension 5/5 5/5 Dorsiflexion (L4) 5/5 5/5 First Toe Extension (L5) 5/5 5/5 Plantar Flexion (S1) 5/5 5/5 Right eversion weakness Skin No rashes, bruising or other skin lesions. No visible edema DATA REVIEW [facility] records independently reviewed Imaging and outside records independently reviewed and findings are as follows: MRI L-spine (06/16/23): subcentimeter grade 1 anterolisthesis at L4-L5 contributing to moderate/severe degree of central canal and moderate degree bilateral foraminal stenosis greater right side. Alignment: Subcentimeter grade 1 anterolisthesis L4-5 level and mild degree of dextrocurvature distal thoracic-upper lumbar spine Bone marrow signal/fracture: No evidence of pathologic marrow infiltration. No evidence of acute or prior fracture. Degenerative disc/endplate degenerative changes most prominent L2-3 level Conus: The conus is within normal limits of signal intensity and morphology. Spinal cord terminates at the T12-L1 level. Cauda equina nerve roots appear unremarkable Paraspinal soft tissues: Paraspinal soft tissues are within normal limits. Lower thoracic spine: Visualized lower thoracic canal and foramina are patent. L1-L2: Canal and foramina are patent. No disc abnormalities L2-L3: Mild degree of degenerative central canal and foraminal narrowing secondary posterior endplate hypertrophy eccentric towards left side and posterior hypertrophic changes L3-L4: Mild degree of degenerative central canal and foraminal narrowing secondary posterior endplate hypertrophy and posterior hypertrophic changes L4-L5: Subcentimeter grade 1 anterolisthesis, posterior endplate upper/disc complex and hypertrophy the posterior elements contributing to moderate/severe degree of central canal and moderate degree bilateral foraminal stenosis greater right side. L5-S1: Partial sacralization. Bilateral facet joint arthropathy Sacrum and iliac wings: The visualized sacrum and iliac wings are within normal limits. 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 She endorses weakness of right foot x2 months. I initially though that these symptoms like arose from subcentimeter grade 1 anterolisthesis at L4-L5 contributing to moderate/severe degree of central canal and moderate degree bilateral foraminal stenosis greater right side. However, the weakness is localized to EVERSION only; moreover, exam demonstrates sparing of sensation in the webspace between the first two toes on the right. This would suggest a peroneal nerve etiology Recommend EMG to differentiate from right L4 radiculopathy from a right peroneal neuropathy If EMG demonstrates a radiculopathy, follow up to consider minimally-invasive approach for right L4-L5 decompression I counseled the patient on the deleterious effects of the current smoking usage (1 packs/ day). We discussed, at length, the importance of smoking cessation for at least three months before surgery and indefinitely after surgery. A nicotine test will be ordered prior to surgery. Patient understands that the scheduled operation may be canceled if smoking continues. I would prefer to hold surgery until BMI < 40 and smoking cessation; however, the weakness x2 months warrants surgical intervention. Medical Decision Making: Problems: Moderate: 2+ stable chronic illnesses Data: Unique source(s) for external note(s) reviewed: 3+ Unique test result(s) reviewed: 3+ Unique test(s) ordered: 1 Assessment requiring an independent historian(s) Independent interpretation of test from other physician/QHCP Risk: Low: Low risk from testing/treatment Medical Decision Making Level: 4 - Moderate documented in this encounter [facility] 07-13-2023 History of Present illness Narrative Radiology Service Progress Note PATIENT NAME: Dima Nice DATE OF SERVICE: July 13, 2023 TIME: 8:27 AM PATIENT IDENTITY VERIFICATION COMPLETED USING TWO (2) IDENTIFIERS: Name and Date of confirmed by patient verbally and Name and Date of confirmed by identification band. FALL SCREENING: Has the patient had 2 falls in the last year or 1 fall with injury or currently using an Ambulatory Assistive Device (Walker, Cane, Wheelchair, Crutches, etc.)? Yes, Patient High Risk for Falls What interventions were put in place to prevent falls during this visit? Increased Observations by Caregivers PATIENT GENDER DATA: Female. status: : No status: NO. PATIENT RELEVANT IMPLANT DATA REVIEWED: Yes PATIENT PRESENTS WITH AN IMPLANTABLE OR ATTACHED FABRICATION OPERATOR: No RADIOLOGY DEPARTMENT: General X-ray: Exam(s) Completed: Spine X-Ray(s): Lumbar AP / LAT / FLEX-EXT PERIPHERAL IV DATA: Not applicable SIGNED BY: RT Miguel Angel(R) July 13, 2023 8:27 AM documented in this encounter [facility] 07-13-2023 Note HNO ID: [id number] Author: RUTH RAMIREZ RT(R) Service: Radiology Author Type: Technologist Type: Progress Notes Filed: 07/13/2023 08:28 Note Text: Radiology Service Progress Note PATIENT NAME: Dima Nice DATE OF SERVICE: July 13, 2023 TIME: 8:27 AM PATIENT IDENTITY VERIFICATION COMPLETED USING TWO (2) IDENTIFIERS: Name and Date of confirmed by patient verbally and Name and Date of confirmed by identification band. FALL SCREENING: Has the patient had 2 falls in the last year or 1 fall with injury or currently using an Ambulatory Assistive Device (Walker, Cane, Wheelchair, Crutches, etc.)? Yes, Patient High Risk for Falls What interventions were put in place to prevent falls during this visit? Increased Observations by Caregivers PATIENT GENDER DATA: Female. status: : No status: NO. PATIENT RELEVANT IMPLANT DATA REVIEWED: Yes PATIENT PRESENTS WITH AN IMPLANTABLE OR ATTACHED FABRICATION OPERATOR: No RADIOLOGY DEPARTMENT: General X-ray: Exam(s) Completed: Spine X-Ray(s): Lumbar AP / LAT / FLEX-EXT PERIPHERAL IV DATA: Not applicable SIGNED BY: RT Miguel Angel(R) July 13, 2023 8:27 AM [facility] 07-12-2023 History of Present illness Narrative Subjective Dima Nice is a 63 y.o. female who presents for the following: Hidradenitis Suppurativa (Currently on Humira with good response. Denies current flares.). Review of Systems: No other skin or systemic complaints other than what is documented elsewhere in the note. The following portions of the chart were reviewed this encounter and updated as appropriate: Tobacco Allergies Meds Problems Med Hx Surg Hx Fam Hx Skin Cancer History No skin cancer on file. Specialty Problems None Objective Well appearing patient in no apparent distress; mood and affect are within normal limits. A focused skin examination was performed. All findings within normal limits unless otherwise noted below. Assessment/Plan 1. Hidradenitis suppurativa Left Axilla, Pelvis - Anterior, Right Axilla Dilated comedones, inflammatory papules, sinus tract formation, scarring. Improved since starting Humira - Hidradenitis suppurativa is a chronic condition of clogged sweat glands that leads to inflammation of the skin in areas such as the groin, underarms, underneath the breasts, and in between the buttocks. It most commonly appears as multiple large nodules (solid, raised bumps), abscesses (red, swollen, warm, tender bumps or lumps with pus inside), and tunnels (holes in the skin that may contain fluid such as pus) in these areas. The nodules and abscesses gradually get larger and drain pus. After multiple bouts of this cycle of plugging, enlargement, and drainage, there may be tunnel formation under the skin and scarring. Pain is the most common symptom, but individuals with hidradenitis suppurativa also report itchy lesions, a foul odor coming from lesions when they drain pus, feeling tired, and joint pain. - While there is no cure for hidradenitis suppurativa, you can work with your medical professional to treat existing lesions and prevent new ones. - Make sure to wash any inflamed, draining areas of hidradenitis suppurativa with antibacterial soap, and then apply an antibiotic ointment (Neosporin) and clean bandages. If there is a large amount of drainage, change the gauze pads and dressings often. Warm compresses and ibuprofen (Advil, Motrin) can help reduce the swelling. Avoid wearing tight-fitting clothing to help prevent further irritation. - Weight loss may decrease lesions by decreasing skin folds and, thus, friction on the skin. Smoking should be avoided. Plan - Continue Humira as directed. Discussed side effects, will call if she experiences any. - Labs ordered; Tspot, Hep B/C serologies, CMP, CBCw/diff. - Risks, benefits, and side effects discussed in office. Related Procedures T-SPOT (Tb) CBC and Auto Differential Comprehensive metabolic panel Hepatitis C Antibody Hepatitis B Surface Antibody Hepatitis B Surface Antigen Hepatitis B Core Antibody, Total Related Medications adalimumab (Humira,CF, Pen) 40 mg/0.4 mL pen injector kit pen-injector INJECT 40MG (1 PEN) UNDER THE SKIN ONCE A WEEK documented in this encounter [facility] Work Phone: 07-08-2023 Telephone encounter Note Pt. Called, stating that she would like office to call her back in a couple of months as she is currently dealing with spinal stenosis. [facility] 06-30-2023 Note HNO ID: [id number] Author: GIA FERNANDES PA-C Service: ? Author Type: Physician Continuous Process Machine Operator Type: Progress Notes Filed: 06/30/2023 12:07 Note Text: Spine surgical triage: LBP, R buttock pain, Right foot drop, trouble walking, numbness She has tried: PT, injections, dry needling, steroids, baclofen, NSAID Lumbar MRI with L4-5 spondylolisthesis with moderate stenosis. Since the patient has tried conservative treatment and has findings on her imaging I think it is reasonable for her to see a surgeon. XR ordered. [facility] 06-30-2023 History of Present illness Narrative Spine surgical triage: LBP, R buttock pain, Right foot drop, trouble walking, numbness She has tried: PT, injections, dry needling, steroids, baclofen, NSAID Lumbar MRI with L4-5 spondylolisthesis with moderate stenosis. Since the patient has tried conservative treatment and has findings on her imaging I think it is reasonable for her to see a surgeon. XR ordered. Patient name: Dima Nice Are you being referred by a [facility] Provider or Pain Management Provider at [facility]? No If answer is "YES" please schedule directly with surgeon, triage does not need to be completed. Is this a self-referral Yes If not, who is the Referring Provider Is this a 2nd opinion from another spine surgeon? No Were you offered surgery? No MRI/CT/myelogram within 12 months? Yes If "NO", please refer to medical spine or PCP to complete above imaging, triage does not need to be completed If "YES, please ask for the name/address of the facility where the MRI/CT/myelogram was completed: [facility] MRI/CT/myelogram viewable in [facility]: Yes If not, please provide [phone] to fax in imaging reports for review. Also, please inform patient to hand carry imaging disc to appointment. XR (spine) within 12 months: No If "YES, please ask for the name/address of the facility where the XR was completed: Dr. Alonso's patients: Have you had previous EMG/Nerve Conduction Study, Ultrasound, or MRI for these same symptoms? If "YES, please ask for the name/address of the facility where they were completed: Requested provider (First and Last name): any Are you interested in a virtual visit if offered? No 1. Where are you having symptoms related to this visit? Back pain Yes LBP, R buttock Leg pain Yes R leg, R foot drop Arm pain No Neck pain No 2. Are you having any of the following symptoms: Difficulty walking Yes uses a cane Numbness Yes R calf Weakness Yes R leg Trouble using your hands? "My hands twitch" 3. Have you had any injections or physical therapy in the last 12 months? Yes If "YES" then please ask for the name/address of the facility where the injections and/or physical therapy was completed PT: [facility] [place] [address] [place] [address] Injections: [facility] [place] [address] [place] [address] [address], [place] [address] Have you tried any other kinds of non-surgical treatments in the last 12 months? (For example: NSAIDS, muscle relaxants, analgesics, oral steroids, Chiropractor, Acupuncture): Dry Needling, oral steroids, Baclofen, Ibuprofen 4. Are you currently taking daily prescribed narcotic medications for your current symptoms (For example Oxycodone, Hydrocodone, Tramadol, Morphine, Other)? Yes 5. Have you had previous spinal surgery for this same symptoms? No If "YES please ask for the name of facility/address of where the surgery was completed: Additional Comments [phone] documented in this encounter [facility] 06-23-2023 Note HNO ID: [id number] Author: ?, ?, ? Service: ? Author Type: ? Type: Progress Notes Filed: 06/30/2023 12:07 Note Text: Patient name: Dima Nice Are you being referred by a Center for [facility] Provider or Pain Management Provider at [facility]? No If answer is "YES" please schedule directly with surgeon, triage does not need to be completed. Is this a self-referral Yes If not, who is the Referring Provider Is this a 2nd opinion from another spine surgeon? No Were you offered surgery? No MRI/CT/myelogram within 12 months? Yes If "NO", please refer to medical spine or PCP to complete above imaging, triage does not need to be completed If "YES,? please ask for the name/address of the facility where the MRI/CT/myelogram was completed: [facility] MRI/CT/myelogram viewable in [facility]: Yes If not, please provide [phone] to fax in imaging reports for review. Also, please inform patient to hand carry imaging disc to appointment. XR (spine) within 12 months: No If "YES,? please ask for the name/address of the facility where the XR was completed: Dr. Alonso's patients: Have you had previous EMG/Nerve Conduction Study, Ultrasound, or MRI for these same symptoms? If "YES,? please ask for the name/address of the facility where they were completed: Requested provider (First and Last name): any Are you interested in a virtual visit if offered? No 1. Where are you having symptoms related to this visit? Back pain Yes LBP, R buttock Leg pain Yes R leg, R foot drop Arm pain No Neck pain No 2. Are you having any of the following symptoms: Difficulty walking Yes uses a cane Numbness Yes R calf Weakness Yes R leg Trouble using your hands? "My hands twitch" 3. Have you had any injections or physical therapy in the last 12 months? Yes If "YES" then please ask for the name/address of the facility where the injections and/or physical therapy was completed PT: [facility] [place] [facility] [place] [address] Injections: [facility] [place] [address] [facility] [address], [place] [address] Have you tried any other kinds of non-surgical treatments in the last 12 months? (For example: NSAIDS, muscle relaxants, analgesics, oral steroids, Chiropractor, Acupuncture): Dry Needling, oral steroids, Baclofen, Ibuprofen 4. Are you currently taking daily prescribed narcotic medications for your current symptoms (For example Oxycodone, Hydrocodone, Tramadol, Morphine, Other)? Yes 5. Have you had previous spinal surgery for this same symptoms? No If "YES? please ask for the name of facility/address of where the surgery was completed: Additional Comments [phone] [facility] 06-16-2023 Note HNO ID: [id number] Author: FIFI FIGUEROA RT(R) Service: ? Author Type: Technologist Type: Progress Notes Filed: 06/16/2023 13:44 Note Text: Radiology Service Progress Note PATIENT NAME: Dima Nice DATE OF SERVICE: June 16, 2023 TIME: 1:43 PM PATIENT IDENTITY VERIFICATION COMPLETED USING TWO (2) IDENTIFIERS: Name and Date of confirmed by patient verbally. FALL SCREENING: Has the patient had 2 falls in the last year or 1 fall with injury or currently using an Ambulatory Assistive Device (Walker, Cane, Wheelchair, Crutches, etc.)? No PATIENT GENDER DATA: Female. status: : No status: NO. PATIENT RELEVANT IMPLANT DATA REVIEWED: Yes PATIENT PRESENTS WITH AN IMPLANTABLE OR ATTACHED FABRICATION OPERATOR: No RADIOLOGY DEPARTMENT: MR; Exam(s) Completed: Spine: Lumbar spine PERIPHERAL IV DATA: Not applicable SIGNED BY: Fifi Figueroa RDMS, JUDITH Ferrera ([facility]) June 16, 2023 1:43 PM [facility] 06-16-2023 History of Present illness Narrative Radiology Service Progress Note PATIENT NAME: Dima Nice DATE OF SERVICE: June 16, 2023 TIME: 1:43 PM PATIENT IDENTITY VERIFICATION COMPLETED USING TWO (2) IDENTIFIERS: Name and Date of confirmed by patient verbally. FALL SCREENING: Has the patient had 2 falls in the last year or 1 fall with injury or currently using an Ambulatory Assistive Device (Walker, Cane, Wheelchair, Crutches, etc.)? No PATIENT GENDER DATA: Female. status: : No status: NO. PATIENT RELEVANT IMPLANT DATA REVIEWED: Yes PATIENT PRESENTS WITH AN IMPLANTABLE OR ATTACHED FABRICATION OPERATOR: No RADIOLOGY DEPARTMENT: MR; Exam(s) Completed: Spine: Lumbar spine PERIPHERAL IV DATA: Not applicable SIGNED BY: Fifi Figueroa RDMS, MALA- Maisha ([facility]) June 16, 2023 1:43 PM documented in this encounter [facility] 06-14-2023 History of Present illness Narrative Images from the original note were not included. [facility] [place] [facility] AT [address] [place] [address] Dept: [phone] Dept PHYSICAL THERAPY TREATMENT Patient Name: Dima Nice : 1960 Date of Service: 06/14/2023 Referring Provider: Flakita Garcia AP* Visit #: 8 Diagnosis: Acute right-sided low back pain with right-sided sciatica Reason for referral/Mechanism of injury: Pt c/o R buttock pain that radiates down RLE to foot. Symptoms vary- numbness, icy, extreme pain. Pt sat/ slept at 's bedside in recliner while he had cancer. Then when she tried to resume normal activities pain began approximately 1.5 months ago. She has been using pillow b/n legs while sleeping. She has been wearing SI belt which seems to be helping. No MRI yet. Symptoms Aggravated by: sleeping, walking, prolonged standing, prolonged sitting, cooking, cleaning, quilting Patient Preferences: "Jovanni-sha" Precautions/Red Flags: None Subjective Pt reports 2-3/10 pain in R lower lateral leg. She reports she sprained her R ankle walking in the grass without device last Tuesday and fell. She shows bruising all around her arms. She notes she plans to use her cane all the time in the cane. She is wearing her ankle brace. She states improvement since start DN, but notes 3 days of soreness following tx. Compliance with HEP: Yes Objective Noticing variety of bruises, mostly all very small along B arms/forearms, some R hip and R lower leg. Treatment Dry needling information Position of Rx: left sidelying Treatment and side effects education given: Yes Consent obtained: Yes Dry Needling 1 Region/structure 1: R glutes posterior fibers x2 (1 midway PSIS & ASIS & 2fingers distal to iliac spine, 1 2fingers further inferior). R glutes anterior fibers x3 (25/50/75% between iliac spine and greater trochanter laterally). R piriformis x1 (distal 1/3). Technique 1: DN with 2 channels e-stim, brief gentle STM post session. Needle size/depth 1: 60mm Quantity of needles 1: 6 Dry Needling 2 Region/structure 2: R lower leg: fibularis x2 (x1 thumb distal-anterior to fibular head, x1 4 fingers distal), lateral-distal head of gastrocnemius x1, lateral soleus x1. Technique 2: DN with 2 channels e-stim, brief gentle STM post session. Needle size/depth 2: 30mm Quantity of needles 2: 4 Assessment Skilled physical therapy interventions utilized to improve patient s impairments and work towards established goals. Patient response to treatment: Pt tolerates DN, which we included for proximal and distal structures in RLE. Today is her 4th DN session. Pt later notes standing still (like washing dishes or cooking) is worse than walking. Patient will benefit from continued physical therapy to achieve goals. The rationale for today s treatment was explained to the patient. Verbal cues were provided for correct form with all exercises. Advised patient to continue with Home Exercise Program (HEP). Goals General/Ortho Pt will verbalize max buttock and RLE pain to 6/10 for improved ability/ ease with sleeping. (Progressing) Start: 05/09/23 Expected End: 06/18/23 Pt will demo trunk AROM to 100% all directions for ADLs and household duties. (Progressing) Start: 05/09/23 Expected End: 06/18/23 Pt will demo 5/5 MMT of BLE for ease with walking, standing. (Progressing) Start: 05/09/23 Expected End: 06/18/23 Pt will score 54% or lower on the modified JENNIFER to demo improved quality of life. (Progressing) Start: 05/09/23 Expected End: 06/18/23 Plan Plan for next session: manual therapy and extension based activities if pt tolerates/ no worsening s/s. Time Entry Total Treatment Time Start Time: 1552 Stop Time: 1628 Time Calculation (min): 36 min PT Therapeutic Procedures Time Entry Needle Insertions Time Entry: 30 Lubna Luna PT documented in this encounter [facility] 06-14-2023 Telephone encounter Note Prescription Request: Last medication check: 05/26/23 Last physical exam: 09/30/21 Next scheduled appointment: none Last date of refill on this medication 05/20/23 [facility] 06-14-2023 Miscellaneous Notes Prescription Request: Last medication check: 05/26/23 Last physical exam: 09/30/21 Next scheduled appointment: none Last date of refill on this medication 05/20/23 documented in this encounter [facility] 06-09-2023 History of Present illness Narrative Images from the original note were not included. [facility] AT [address] [place] [address] Dept: [phone] Dept PHYSICAL THERAPY RE-EVALUATION Patient Name: Dima Nice : 1960 Date of Service: 06/09/2023 Referring Provider: Flakita Garcia AP* Visit #: 7 Diagnosis: Acute right-sided low back pain with right-sided sciatica Reason for referral/Mechanism of injury: Pt c/o R buttock pain that radiates down RLE to foot. Symptoms vary- numbness, icy, extreme pain. Pt sat/ slept at 's bedside in recliner while he had cancer. Then when she tried to resume normal activities pain began approximately 1.5 months ago. She has been using pillow b/n legs while sleeping. She has been wearing SI belt which seems to be helping. No MRI yet. Symptoms Aggravated by: sleeping, walking, prolonged standing, prolonged sitting, cooking, cleaning, quilting Patient Preferences: "Jovanni-sha" Precautions/Red Flags: None Subjective General Comments: Pt reports being about 50% back to baseline. Currently she has N/T down RLE with pain also. Yesterday she tried sitting and resting all day which helped with symptoms. If she is weight bearing then pain is always present. No change in frequency. Improved intensity since eval. Unsure if dry needling helped or not- would have soreness for a couple days after. Pain: Current: 3-4/10 Best: 2/10 Worst: 8/10 Current Level of Function: Able to sleep on L side with pillow b/n legs, able to sit for an extended period of time. She still has pain with standing, R s/l, cooking, cleaning, quilting. Patient s Stated Goal: Be able to perform all activities without pain. Outcome Measures Oswestry Low Back Disability: 32/50= 64% >31 /50 =62 % Objective BACK STS transfers: BUE used, slow d/t pain >BUE used Date Recorded: 05/09/2023 >06/08 Trunk AROM seated Percentage (%) Flexion (flex) 100 Extension (ext) 50 > 100 Right side bending (SBR) 100 Left side bending (SBL) 100 Right rotation (rotR) 50 > 75 Left rotation (rotL) 50 > 75 *= pain in affected area Date 05/09/2023 >06/08 MMT Right Left Hip Flexion 4/5 >4+/5 5/5 Hip Abduction 4/5 >4+/5 4/5 Hip Adduction 5/5 5/5 Knee Extension 5/5 5/5 Knee Flexion 5/5 5/5 Ankle Dorsiflexion (DF) 5/5 5/5 Ankle Plantarflexion (PF) 5/5 5/5 *= pain in affected area Bridge: unable d/t core and glute weakness, pain > 100% with mild instability with BUE Core strength: 0/5 using Sahrmann Scale. Able to activate transverse abdominis however unable to hold against perturbations. > able to activate TA while holding conversation Lower Extremity Flexibility Date 05/09/2023 > 06/08 R L Hamstrings mild restriction >no no restriction Piriformis moderate restriction >mild no restriction Palpation: TTP at L glute and piriformis > L lateral glute and piriformis Myofascial restrictions: L glute and piriformis > L lateral glute and piriformis Assessment Pt is progressing fairly through their POC addressing R buttock pain that radiates down RLE to foot since their evaluation on 05/09/23. POC has included strengthening, stretching, manual therapy, dry needling.The pt demonstrates and verbalizes improvements in pain intensity, LE strength, core strength, trunk mobility. This contributes to improved ease with sitting and left sidelying. The pt still demos deficits in RLE strength, core strength, myofascial restrictions R glute region which is limiting their ability to perform standing, walking, cleaning, cooking. The pt will benefit from continued skilled PT services to address the above stated impairments and functional limitations to maximize participation and ease in household, social related activities. Instructed pt to try trunk extension in sitting and standing vs flexion for a few days. Pt also advised to contact dr for additional follow up d/t continued s/s with any weight bearing activities. Rehab Potential: Good Goals Active General/Ortho Pt will be IND and compliant with HEP for participation throughout POC. (Completed) Start: 05/09/23 Expected End: 06/18/23 Resolved: 06/09/23 Pt will verbalize max buttock and RLE pain to 6/10 for improved ability/ ease with sleeping. (Progressing) Start: 05/09/23 Expected End: 06/18/23 Pt will demo trunk AROM to 100% all directions for ADLs and household duties. (Progressing) Start: 05/09/23 Expected End: 06/18/23 Pt will demo 5/5 MMT of BLE for ease with walking, standing. (Progressing) Start: 05/09/23 Expected End: 06/18/23 Pt will score 54% or lower on the modified JENNIFER to demo improved quality of life. (Progressing) Start: 05/09/23 Expected End: 06/18/23 Plan Frequency and Duration: 2/wk for 2 weeks (1x/wk dry needle, 1x/wk manual & there-ex) Therapeutic Contents: aquatics/pool, client education, home exercise program, manual therapy techniques, self care/home management, therapeutic activities, therapeutic exercise, and modalities as needed Plan for next session: Pt will have dry needling 1x/wk with Kathleen. And 1x/wk for manual therapy and extension based activities if pt tolerates/ no worsening s/s. (Will have total of 2 sessions/ week as scheduling allows). Risks and benefits were discussed with the patient and/or family, and the patient and/or family participated with the plan of care and agrees. Treatment Therapeutic Exercise Therapeutic Exercise Activity 1: Recheck Activity 1 Comment: Recheck objective measures, discuss POC, update HEP Therapeutic Exercise Activity 2: Trunk extension seated Activity 2 Comment: x2 Soft Tissue Mobilization Location: L glute, piriformis Body Position: (L s/l) Comments: roller to L glute, piriformis Time Entry Total Treatment Time Start Time: 1330 Stop Time: 1358 Time Calculation (min): 28 min PT Therapeutic Procedures Time Entry Therapeutic Exercise Time Entry: 15 Manual Therapy Time Entry: 13 Joana Schaefer PT documented in this encounter [facility] 06-04-2023 History of Present illness Narrative Images from the original note were not included. [facility] [place] [facility] AT [address] [place] [address] Dept: [phone] Dept PHYSICAL THERAPY TREATMENT Patient Name: Dima Nice : 1960 Date of Service: 06/04/2023 Referring Provider: Flakita Garcia AP* Visit #: 6 Diagnosis: Acute right-sided low back pain with right-sided sciatica Reason for referral/Mechanism of injury: Pt c/o R buttock pain that radiates down RLE to foot. Symptoms vary- numbness, icy, extreme pain. Pt sat/ slept at 's bedside in recliner while he had cancer. Then when she tried to resume normal activities pain began approximately 1.5 months ago. She has been using pillow b/n legs while sleeping. She has been wearing SI belt which seems to be helping. No MRI yet. Symptoms Aggravated by: sleeping, walking, prolonged standing, prolonged sitting, cooking, cleaning, quilting Patient Preferences: "Jovanni-sha" Precautions/Red Flags: None Subjective Pt reports she continues to feel better, wondering if from dry needling, nerve block, and/or Prednisone. She states she is happy to be walking in. Current 3-4/10 pain in RLE ITB/HS and lateral lower leg. She would like to do DN again today, but would like soft tissue massage next visit with Joana (evaluating PT). Compliance with HEP: Yes Objective Objective measurements not taken today. Treatment Dry needling information Position of Rx: left sidelying Treatment and side effects education given: Yes Consent obtained: Yes Dry Needling 1 Region/structure 1: R biceps femoris x2 ( x1 4fingers proximal to knee, x1 4 fingers further proximal), VL x2( x1 4fingers proximal to knee, x1 4 fingers further proximal) Technique 1: DN with 2 channels e-stim, brief gentle STM post session. Needle size/depth 1: 50mm Quantity of needles 1: 4 Dry Needling 2 Region/structure 2: R lower leg: lateral gastroc head x1, lateral gastroc (4 fingers distal to first needle), fibularis x1 (mid-wa between knee and ankle), lateral soleus x1 (proximal). Technique 2: DN with 2 channels e-stim, brief gentle STM post session. Needle size/depth 2: 30mm Quantity of needles 2: 4 Assessment Skilled physical therapy interventions utilized to improve patient s impairments and work towards established goals. Patient response to treatment: Pt reports she continues to feel better, wondering if from dry needling, nerve block, and/or Prednisone. She has consistently reported benefit from DN sessions immediately afterwards. She would like to do DN again today, but would like soft tissue massage next visit with Joana (evaluating PT); I instructed her she needs reassessment, but that if there is time, STM can be included. I also offered today to be a reassessment, but she said she would have her evaluating PT perform and decide whether or not to continue physical therapy and what interventions to continue. Today is 4th DN session, which we did not include glutes like usual, as she had more symptoms in HS and ITB, along with gastroc/soleus. She has bruising lateral calf, some spots from previous needles, other spots not where needles have been; avoided sticking needles in bruising. Patient will benefit from continued physical therapy to achieve goals. The rationale for today s treatment was explained to the patient. Verbal cues were provided for correct form with all exercises. Advised patient to continue with Home Exercise Program (HEP). Goals General/Ortho Pt will be IND and compliant with HEP for participation throughout POC. (Progressing) Start: 05/09/23 Expected End: 06/18/23 Pt will verbalize max buttock and RLE pain to 6/10 for improved ability/ ease with sleeping. (Progressing) Start: 05/09/23 Expected End: 06/18/23 Pt will demo trunk AROM to 100% all directions for ADLs and household duties. (Progressing) Start: 05/09/23 Expected End: 06/18/23 Pt will demo 5/5 MMT of BLE for ease with walking, standing. (Progressing) Start: 05/09/23 Expected End: 06/18/23 Pt will score 54% or lower on the modified JENNIFER to demo improved quality of life. (Progressing) Start: 05/09/23 Expected End: 06/18/23 Plan Plan for next session: reassessment. Time Entry Total Treatment Time Start Time: 1130 Stop Time: 1200 Time Calculation (min): 30 min PT Therapeutic Procedures Time Entry Needle Insertions Time Entry: 30 Lubna Luna PT documented in this encounter [facility] 05-27-2023 History of Present illness Narrative Images from the original note were not included. [facility] AT [address] [place] [address] Dept: [phone] Dept PHYSICAL THERAPY TREATMENT Patient Name: Dima Nice : 1960 Date of Service: 05/27/2023 Referring Provider: Flakita Garcia AP* Visit #: 5 Diagnosis: Acute right-sided low back pain with right-sided sciatica Reason for referral/Mechanism of injury: Pt c/o R buttock pain that radiates down RLE to foot. Symptoms vary- numbness, icy, extreme pain. Pt sat/ slept at 's bedside in recliner while he had cancer. Then when she tried to resume normal activities pain began approximately 1.5 months ago. She has been using pillow b/n legs while sleeping. She has been wearing SI belt which seems to be helping. No MRI yet. Symptoms Aggravated by: sleeping, walking, prolonged standing, prolonged sitting, cooking, cleaning, quilting Patient Preferences: "Jovanni-sha" Precautions/Red Flags: None Subjective Pt reports she is feeling much better, didn't grab her cane or lidocane patches today. She feels benefit from DN, as well as recent nerve block. She has current R hip and RLE pain 2-3/10 intensity. Compliance with HEP: Yes Objective Objective measurements not taken today. Treatment Dry needling information Position of Rx: left sidelying Treatment and side effects education given: Yes Consent obtained: Yes Dry Needling 1 Region/structure 1: R glutes posterior fibers x3 (1 close to R SIJ, 1 midway PSIS & ASIS & 2fingers distal to iliac spine, 1 2fingers further inferior). R glutes anterior fibers x3 (25/50/75% between iliac spine and greater trochanter laterally). R piriformis x1 (distal 1/3). Technique 1: DN with 3 channels e-stim, brief gentle STM post session. Needle size/depth 1: 60mm Quantity of needles 1: 7 Dry Needling 2 Region/structure 2: R lower leg: fibularis x2 (x1 thumb distal-anterior to fibular head, x1 4 fingers distal), lateral-distal head of gastrocnemius x1, lateral soleus x1. Technique 2: DN with 2 channels e-stim, brief gentle STM post session. Needle size/depth 2: 30mm Quantity of needles 2: 4 Assessment Skilled physical therapy interventions utilized to improve patient s impairments and work towards established goals. Patient response to treatment: Pt tolerates 3rd DN session and continues to report benefit from the tx. She also had recent nerve block. Noticed pinkish-purple discoloration in lateral lower leg this date, none of which were areas needled last session; avoided each discoloration when needling this date. There was one bruise along mid-fibularis that may have been from a needle last session; also avoided this spot. Patient will benefit from continued physical therapy to achieve goals. The rationale for today s treatment was explained to the patient. Verbal cues were provided for correct form with all exercises. Advised patient to continue with Home Exercise Program (HEP). Goals General/Ortho Pt will be IND and compliant with HEP for participation throughout POC. (Progressing) Start: 05/09/23 Expected End: 06/18/23 Pt will verbalize max buttock and RLE pain to 6/10 for improved ability/ ease with sleeping. (Progressing) Start: 05/09/23 Expected End: 06/18/23 Pt will demo trunk AROM to 100% all directions for ADLs and household duties. (Progressing) Start: 05/09/23 Expected End: 06/18/23 Pt will demo 5/5 MMT of BLE for ease with walking, standing. (Progressing) Start: 05/09/23 Expected End: 06/18/23 Pt will score 54% or lower on the modified JENNIFER to demo improved quality of life. (Progressing) Start: 05/09/23 Expected End: 06/18/23 Plan Plan for next session: continue DN. Time Entry Total Treatment Time Start Time: 1048 Stop Time: 1120 Time Calculation (min): 32 min PT Therapeutic Procedures Time Entry Needle Insertions Time Entry: 30 Lubna Luna PT documented in this encounter [facility] 05-26-2023 Evaluation + Plan note Associated Problem(s): Acute right-sided low back pain with right-sided sciatica Currently stable, follow-up with pain management for injection today. [facility] 05-26-2023 Evaluation + Plan note Associated Problem(s): Hypertension Controlled, continue amlodipine 10 mg daily lisinopril 30 mg 2 a day [facility] 05-26-2023 Miscellaneous Notes Associated Problem(s): Acute right-sided low back pain with right-sided sciatica Currently stable, follow-up with pain management for injection today. Associated Problem(s): Hypertension Controlled, continue amlodipine 10 mg daily lisinopril 30 mg 2 a day documented in this encounter [facility] 05-26-2023 History of Present illness Narrative Patient verified by last name and date of . Images from the original note were not included. 05/26/2023 Dima Nice (: 1960) is a 62 y.o. female , Established patient, here for evaluation of the following chief complaint(s): Hypertension and Health Maintenance (Colonoscopy- agree/Hep a vaccine- refuse/Hep b vaccine-refuse/Rsv vaccine- not done/Mammogram- refuse/) ASSESSMENT/PLAN: 1. Primary hypertension Assessment & Plan: Controlled, continue amlodipine 10 mg daily lisinopril 30 mg 2 a day 2. Acute right-sided low back pain with right-sided sciatica Assessment & Plan: Currently stable, follow-up with pain management for injection today. 3. Screening for colon cancer - Ambulatory referral to Gastroenterology Follow up in about 6 months (around 11/25/2023). SUBJECTIVE/OBJECTIVE: DELPHINE Goldman comes in today for follow-up on her blood pressure. Looks excellent today she was recently started on amlodipine 10 mg and that seems to have improved it. She also says that her back is feeling somewhat better but she was told by the pain management that she could get her injections today so she will go get that after she leaves here. Review of Systems Constitutional: Negative for chills and fever. HENT: Negative for ear pain, rhinorrhea and sinus pressure. Respiratory: Negative for shortness of breath. Cardiovascular: Negative for chest pain and palpitations. Vitals: 05/26/23 1101 BP: 125/76 Pulse: 81 SpO2: 96% Weight: 272 lb 12.8 oz (124 kg) Height: 5' 3" (1.6 m) Physical Exam Vitals and nursing note reviewed. Constitutional: General: She is not in acute distress. Appearance: Normal appearance. HENT: Head: Normocephalic and atraumatic. Mouth/Throat: Mouth: Mucous membranes are moist. Pharynx: Oropharynx is clear. Eyes: Extraocular Movements: Extraocular movements intact. Pupils: Pupils are equal, round, and reactive to light. Cardiovascular: Rate and Rhythm: Normal rate and regular rhythm. Heart sounds: Normal heart sounds. No murmur heard. Pulmonary: Effort: Pulmonary effort is normal. Breath sounds: Normal breath sounds. Musculoskeletal: Cervical back: Neck supple. Lymphadenopathy: Cervical: No cervical adenopathy. Neurological: Mental Status: She is alert. An electronic signature was used to authenticate this note. Casey Chang MD 05/26/2023 11:36 AM documented in this encounter [facility] 05-20-2023 History of Present illness Narrative Images from the original note were not included. [facility] AT [address] [place] [address] Dept: [phone] Dept PHYSICAL THERAPY TREATMENT Patient Name: Dima Nice : 1960 Date of Service: 05/20/2023 Referring Provider: Flakita Garcia AP* Visit #: 4 Diagnosis: Acute right-sided low back pain with right-sided sciatica Reason for referral/Mechanism of injury: Pt c/o R buttock pain that radiates down RLE to foot. Symptoms vary- numbness, icy, extreme pain. Pt sat/ slept at 's bedside in recliner while he had cancer. Then when she tried to resume normal activities pain began approximately 1.5 months ago. She has been using pillow b/n legs while sleeping. She has been wearing SI belt which seems to be helping. No MRI yet. Symptoms Aggravated by: sleeping, walking, prolonged standing, prolonged sitting, cooking, cleaning, quilting Patient Preferences: "Jovanni-sha" Precautions/Red Flags: None Subjective Pt reports she had about 1 day of good relief after her first DN session. She is having more lateral lower leg pain today and would like to add that to tx. R hip and RLE 7-8/10 upon arrival. Compliance with HEP: Yes Objective Objective measurements not taken today. Treatment Dry needling information Position of Rx: left sidelying Treatment and side effects education given: Yes Consent obtained: Yes Dry Needling 1 Region/structure 1: R glutes posterior fibers x3 (1 close to R SIJ, 1 midway PSIS & ASIS & 2fingers distal to iliac spine, 1 2fingers further inferior). R glutes anterior fibers x3 (25/50/75% between iliac spine and greater trochanter laterally). R piriformis x1 (distal 1/3). Technique 1: DN with 3 channels e-stim, brief gentle STM post session. Needle size/depth 1: 60mm Quantity of needles 1: 7 Dry Needling 2 Region/structure 2: R lower leg: fibularis x2 (x1 thumb distal-anterior to fibular head, x1 4 fingers distal), lateral-distal head of gastrocnemius x1, lateral soleus x1. Technique 2: DN with 2 channels e-stim, brief gentle STM post session. Needle size/depth 2: 30mm Quantity of needles 2: 4 Assessment Skilled physical therapy interventions utilized to improve patient s impairments and work towards established goals. Patient response to treatment: Added lateral lower leg to DN in addition to R hip region. She reports benefiting. Today is 2nd DN session. Patient will benefit from continued physical therapy to achieve goals. The rationale for today s treatment was explained to the patient. Verbal cues were provided for correct form with all exercises. Advised patient to continue with Home Exercise Program (HEP). Goals General/Ortho Pt will be IND and compliant with HEP for participation throughout POC. (Progressing) Start: 05/09/23 Expected End: 06/18/23 Pt will verbalize max buttock and RLE pain to 6/10 for improved ability/ ease with sleeping. (Progressing) Start: 05/09/23 Expected End: 06/18/23 Pt will demo trunk AROM to 100% all directions for ADLs and household duties. (Progressing) Start: 05/09/23 Expected End: 06/18/23 Pt will demo 5/5 MMT of BLE for ease with walking, standing. (Progressing) Start: 05/09/23 Expected End: 06/18/23 Pt will score 54% or lower on the modified JENNIFER to demo improved quality of life. (Progressing) Start: 05/09/23 Expected End: 06/18/23 Plan Plan for next session: Continue DN. Time Entry Total Treatment Time Start Time: 1031 Stop Time: 1100 Time Calculation (min): 29 min PT Therapeutic Procedures Time Entry Needle Insertions Time Entry: Lubna Luna PT documented in this encounter [facility] 05-17-2023 Telephone encounter Note Reviewed chart. Refill appropriate. RX sent. [facility] 05-17-2023 Miscellaneous Notes Reviewed chart. Refill appropriate. RX sent. Prescription Request: Last medication check: 01/20/2023 Last physical exam: 09/30/2021 Last completed appointment: 04/26/2023 Next scheduled appointment: none Last date of refill on this medication: 03/02/23 documented in this encounter [facility] 05-17-2023 Telephone encounter Note Prescription Request: Last medication check: 01/20/2023 Last physical exam: 09/30/2021 Last completed appointment: 04/26/2023 Next scheduled appointment: none Last date of refill on this medication: 03/02/23 [facility] 05-16-2023 History of Present illness Narrative Images from the original note were not included. [facility] [place] [facility] AT [place] [address] [place] [address] Dept: [phone] Dept PHYSICAL THERAPY TREATMENT Patient Name: Dima Nice : 1960 Date of Service: 05/16/2023 Referring Provider: Flakita Garcia AP* Visit #: 3 Diagnosis: Acute right-sided low back pain with right-sided sciatica Reason for referral/Mechanism of injury: Pt c/o R buttock pain that radiates down RLE to foot. Symptoms vary- numbness, icy, extreme pain. Pt sat/ slept at 's bedside in recliner while he had cancer. Then when she tried to resume normal activities pain began approximately 1.5 months ago. She has been using pillow b/n legs while sleeping. She has been wearing SI belt which seems to be helping. No MRI yet. Symptoms Aggravated by: sleeping, walking, prolonged standing, prolonged sitting, cooking, cleaning, quilting Patient Preferences: "Jovanni-sha" Precautions/Red Flags: None Subjective Pt reports she is desperate and ready to try dry needling. She reports current 8/10 pain in R hip down RLE. Compliance with HEP: Yes Objective Objective measurements not taken today. Treatment Dry needling information Position of Rx: left sidelying Treatment and side effects education given: Yes Consent obtained: Yes Dry Needling 1 Region/structure 1: R glutes posterior fibers x3 (1 close to R SIJ, 1 midway PSIS & ASIS & 2fingers distal to iliac spine, 1 2fingers further inferior). R glutes anterior fibers x3 (25/50/75% between iliac spine and greater trochanter laterally). R piriformis x1 (distal 1/3). Needle size/depth 1: 60mm Quantity of needles 1: 7 Assessment Skilled physical therapy interventions utilized to improve patient s impairments and work towards established goals. Patient response to treatment: Pt tried DN first which pt reports she was pain-free when sidelying with needles placed. Overall pain improved end of session from 8/10 to 7/10 and felt looser. We discussed expected soreness and POC. Pt previous worsened with tx's and today had first positive reaction post-session, therefore, would like to switch to all DN at this time. Patient will benefit from continued physical therapy to achieve goals. The rationale for today s treatment was explained to the patient. Verbal cues were provided for correct form with all exercises. Advised patient to continue with Home Exercise Program (HEP). Goals General/Ortho Pt will be IND and compliant with HEP for participation throughout POC. (Progressing) Start: 05/09/23 Expected End: 06/18/23 Pt will verbalize max buttock and RLE pain to 6/10 for improved ability/ ease with sleeping. (Progressing) Start: 05/09/23 Expected End: 06/18/23 Pt will demo trunk AROM to 100% all directions for ADLs and household duties. (Progressing) Start: 05/09/23 Expected End: 06/18/23 Pt will demo 5/5 MMT of BLE for ease with walking, standing. (Progressing) Start: 05/09/23 Expected End: 06/18/23 Pt will score 54% or lower on the modified JENNIFER to demo improved quality of life. (Progressing) Start: 05/09/23 Expected End: 06/18/23 Plan Plan for next session: DN. Consider adding ITB. Time Entry Total Treatment Time Start Time: 1232 Stop Time: 1300 Time Calculation (min): 28 min PT Therapeutic Procedures Time Entry Needle Insertions Time Entry: 28 Lubna Luna PT documented in this encounter [facility] 05-13-2023 History of Present illness Narrative Images from the original note were not included. [facility] [place] [facility] AT [place] [address] [place] [address] Dept: [phone] Dept PHYSICAL THERAPY TREATMENT Patient Name: Dima Nice : 1960 Date of Service: 05/13/2023 Referring Provider: Flakita Garcia AP* Visit #: 2 Diagnosis: Acute right-sided low back pain with right-sided sciatica Reason for referral/Mechanism of injury: Pt c/o R buttock pain that radiates down RLE to foot. Symptoms vary- numbness, icy, extreme pain. Pt sat/ slept at 's bedside in recliner while he had cancer. Then when she tried to resume normal activities pain began approximately 1.5 months ago. She has been using pillow b/n legs while sleeping. She has been wearing SI belt which seems to be helping. No MRI yet. Symptoms Aggravated by: sleeping, walking, prolonged standing, prolonged sitting, cooking, cleaning, quilting Patient Preferences: "Jovanni-sha" Precautions/Red Flags: None Subjective Pt arrives reporting pain 8/10 upon arrival. States it was a 10/10 yesterday. Feeling bucket of ice water going down leg upon arrival. Compliance with HEP: Yes Objective Objective measurements not taken today. Treatment Soft Tissue Mobilization Location: L glute, piriformis Body Position: Prone Assessment Skilled physical therapy interventions utilized to improve patient s impairments and work towards established goals. Patient response to treatment: Myofascial restrictions felt throughout with pain relief after session. Pt reports N/T resolved during session. Patient will benefit from continued physical therapy to address goals for improved ease and mobility with household and social responsibilities. The rationale for today s treatment was explained to the patient. Verbal cues were provided for correct form with all exercises. Advised patient to continue with Home Exercise Program (HEP). Goals General/Ortho Pt will be IND and compliant with HEP for participation throughout POC. (Progressing) Start: 05/09/23 Expected End: 06/18/23 Pt will verbalize max buttock and RLE pain to 6/10 for improved ability/ ease with sleeping. (Progressing) Start: 05/09/23 Expected End: 06/18/23 Pt will demo trunk AROM to 100% all directions for ADLs and household duties. (Progressing) Start: 05/09/23 Expected End: 06/18/23 Pt will demo 5/5 MMT of BLE for ease with walking, standing. (Progressing) Start: 05/09/23 Expected End: 06/18/23 Pt will score 54% or lower on the modified JENNIFER to demo improved quality of life. (Progressing) Start: 05/09/23 Expected End: 06/18/23 Plan Plan for next session: Cont with manual- possibly try cupping. Add strength/ stability if able depending on pain ((consider LTR, s/l clam, Posterior pelvic tilt) Time Entry Total Treatment Time Start Time: 1200 Stop Time: 1230 Time Calculation (min): 30 min PT Therapeutic Procedures Time Entry Manual Therapy Time Entry: 30 Joana Schaefer PT documented in this encounter [facility] 05-13-2023 History of Present illness Narrative Images from the original note were not included. [facility] AT [place] [address] [place] [address] Dept: [phone] Dept PHYSICAL THERAPY TREATMENT Patient Name: Dima Nice : 1960 Date of Service: 05/13/2023 Referring Provider: Flakita Garcia AP* Visit #: 2 Diagnosis: Acute right-sided low back pain with right-sided sciatica Reason for referral/Mechanism of injury: Pt c/o R buttock pain that radiates down RLE to foot. Symptoms vary- numbness, icy, extreme pain. Pt sat/ slept at 's bedside in recliner while he had cancer. Then when she tried to resume normal activities pain began approximately 1.5 months ago. She has been using pillow b/n legs while sleeping. She has been wearing SI belt which seems to be helping. No MRI yet. Symptoms Aggravated by: sleeping, walking, prolonged standing, prolonged sitting, cooking, cleaning, quilting Patient Preferences: "Jovanni-sha" Precautions/Red Flags: None Subjective Pt arrives reporting pain 8/10 upon arrival. States it was a 10/10 yesterday. Feeling bucket of ice water going down leg upon arrival. Compliance with HEP: Yes Objective Objective measurements not taken today. Treatment Soft Tissue Mobilization Location: L glute, piriformis Body Position: Prone Assessment Skilled physical therapy interventions utilized to improve patient s impairments and work towards established goals. Patient response to treatment: Myofascial restrictions felt throughout with pain relief after session. Pt reports N/T resolved during session. Patient will benefit from continued physical therapy to address goals for improved ease and mobility with household and social responsibilities. The rationale for today s treatment was explained to the patient. Verbal cues were provided for correct form with all exercises. Advised patient to continue with Home Exercise Program (HEP). Goals General/Ortho Pt will be IND and compliant with HEP for participation throughout POC. (Progressing) Start: 05/09/23 Expected End: 06/18/23 Pt will verbalize max buttock and RLE pain to 6/10 for improved ability/ ease with sleeping. (Progressing) Start: 05/09/23 Expected End: 06/18/23 Pt will demo trunk AROM to 100% all directions for ADLs and household duties. (Progressing) Start: 05/09/23 Expected End: 06/18/23 Pt will demo 5/5 MMT of BLE for ease with walking, standing. (Progressing) Start: 05/09/23 Expected End: 06/18/23 Pt will score 54% or lower on the modified JENNIFER to demo improved quality of life. (Progressing) Start: 05/09/23 Expected End: 06/18/23 Plan Plan for next session: Cont with manual- possibly try cupping. Add strength/ stability if able depending on pain ((consider LTR, s/l clam, Posterior pelvic tilt). The physical therapist of record is the therapist who assumes primary responsibility for patient management and as such is held accountable for the coordination, continuation and progression of the POC. This patient's care and PT of record will be transferred from Joana Schaefer PT, DPT to Lubna Luna PT, DPT effective as of 05/16/23. Time Entry Total Treatment Time Start Time: 1200 Stop Time: 1230 Time Calculation (min): 30 min PT Therapeutic Procedures Time Entry Manual Therapy Time Entry: 30 Joana Schaefer PT documented in this encounter [facility] 05-11-2023 Telephone encounter Note Prescription Request: Last medication check: 01/20/2023 Last physical exam: 09/30/2021 Last completed appointment: 04/26/2023 Next scheduled appointment: none Last date of refill on this medication: 04/26/2023 [facility] 05-11-2023 Miscellaneous Notes Prescription Request: Last medication check: 01/20/2023 Last physical exam: 09/30/2021 Last completed appointment: 04/26/2023 Next scheduled appointment: none Last date of refill on this medication: 04/26/2023 documented in this encounter [facility] 05-09-2023 History of Present illness Narrative Images from the original note were not included. [facility] [place] [facility] AT [address] [place] [address] Dept: [phone] Dept PHYSICAL THERAPY EVALUATION Patient Name: Dima Nice : 1960 Date of Service: 05/09/2023 Referring Provider: Flakita Garcia AP* Visit #: 1 Diagnosis: Acute right-sided low back pain with right-sided sciatica General Information Reason for referral/Mechanism of injury: Pt c/o R buttock pain that radiates down RLE to foot. Symptoms vary- numbness, icy, extreme pain. Pt sat/ slept at 's bedside in recliner while he had cancer. Then when she tried to resume normal activities pain began approximately 1.5 months ago. She has been using pillow b/n legs while sleeping. She has been wearing SI belt which seems to be helping. No MRI yet. Symptoms Aggravated by: sleeping, walking, prolonged standing, prolonged sitting, cooking, cleaning, quilting Patient Preferences: "Jovanni-sha" Precautions/Red Flags: None Fall Risk: No Work status: retired Home Setup: couple steps up to back door PMHX: Dima has a past medical history of Allergic, Allergic rhinitis, Anxiety, Asthma, Depression, GERD (gastroesophageal reflux disease), Hyperlipidemia, and Hypertension. PSHX: Dima has a past surgical history that includes Appendectomy and Total vaginal hysterectomy. Have you experienced any anxiety or depression?: Yes - managed Have you experienced thoughts of self-harm or suicidal thoughts?: No Physician follow-up appointment?: No Subjective Chief Complaint: Pt c/o R buttock pain that radiates down RLE to foot. Symptoms vary- numbness, icy, extreme pain. Pt sat/ slept at 's bedside in recliner while he had cancer. Then when she tried to resume normal activities pain began approximately 1.5 months ago. She has been using pillow b/n legs while sleeping. She has been wearing SI belt which seems to be helping. No MRI yet. Patient confirmed name and date of this session. Pain: Current: 08/23 Best: 2-04/23 Worst: 11/23 Symptoms Aggravated by: sleeping, walking, prolonged standing, prolonged sitting, cooking, cleaning, quilting Symptoms Relieved by: stretching forward, changing positions Prior Level of Function: IND Current Level of Function: IND Patient s Stated Goal: Resume to PLOF without pain including quilting Outcome Measures Oswestry Low Back Disability: = 64% Objective BACK STS transfers: BUE used, slow d/t pain Date Recorded: 05/09/2023 Trunk AROM seated Percentage (%) Flexion (flex) 100 Extension (ext) 50 Right side bending (SBR) 100 Left side bending (SBL) 100 Right rotation (rotR) 50 Left rotation (rotL) 50 *= pain in affected area Date 05/09/2023 MMT Right Left Hip Flexion 4/5 5/5 Hip Abduction 4/5 4/5 Hip Adduction 5/5 5/5 Knee Extension 5/5 5/5 Knee Flexion 5/5 5/5 Ankle Dorsiflexion (DF) 5/5 5/5 Ankle Plantarflexion (PF) 5/5 5/5 *= pain in affected area Bridge: unable d/t core and glute weakness, pain Core strength: 0/5 using Sahrmann Scale. Able to activate transverse abdominis however unable to hold against perturbations. Lower Extremity Flexibility Date 05/09/2023 R L Hamstrings mild restriction no restriction Piriformis moderate restriction no restriction Palpation: TTP at L glute and piriformis Myofascial restrictions: L glute and piriformis Assessment Dima is a 62 y.o. patient who arrives to outpatient PT with s/s consistent with c/o R buttock pain radiating down RLE. Pt presents with the following impairments: BLE weakness, core weakness, lumbopelvic tightness, limited trunk ROM. These impairments contribute to difficulty in activity limitations and participation restrictions including sleeping, walking, prolonged standing, prolonged sitting, cooking, cleaning, quilting. The pt will benefit from skilled PT services to address the above stated impairments and functional limitations to maximize participation and ease in household, social related activities. Evaluation complexity is low secondary to: patient has 1-2 personal factors and/or comorbidities that will affect plan of care, therapy will be addressing 1-2 elements, and clinical presentation is stable. Body Systems Affected: musculoskeletal Rehab Potential: Good Learning Preferences: demonstration, explanation, performance, and printed materials Barriers to Rehab: severity Goals General/Ortho Pt will be IND and compliant with HEP for participation throughout POC. (Initiated) Start: 05/09/23 Expected End: 06/18/23 Pt will verbalize max buttock and RLE pain to 6/10 for improved ability/ ease with sleeping. (Initiated) Start: 05/09/23 Expected End: 06/18/23 Pt will demo trunk AROM to 100% all directions for ADLs and household duties. (Initiated) Start: 05/09/23 Expected End: 06/18/23 Pt will demo 5/5 MMT of BLE for ease with walking, standing. (Initiated) Start: 05/09/23 Expected End: 06/18/23 Pt will score 54% or lower on the modified JENNIFER to demo improved quality of life. (Initiated) Start: 05/09/23 Expected End: 06/18/23 Plan Frequency and Duration: 2/wk for 4 weeks Therapeutic Contents: aquatics/pool, client education, group therapy, home exercise program, manual therapy techniques, self care/home management, therapeutic activities, therapeutic exercise, and modalities as needed Plan for next session: Cont with manual therapy. Review stretches and add stretches & strength (consider LTR, s/l clam, PPT). Risks and benefits were discussed with the patient and/or family, and the patient and/or family participated with the plan of care and agrees. Treatment Therapeutic Exercise # of Activities: 3 Therapeutic Exercise Activity 1: Seated stretches x30 sec R Activity 1 Comment: Piriformis, HS Therapeutic Exercise Activity 2: TA contraction supine Activity 2 Comment: x10 Soft Tissue Mobilization Location: L glute, piriformis Body Position: (R sidelying) Patient Education: Anatomy/ physiology, HEP, POC Time Entry Total Treatment Time Start Time: 1336 Stop Time: 1410 Time Calculation (min): 34 min PT Evaluation Time Entry PT Evaluation (Low) Time Entry: 20 PT Therapeutic Procedures Time Entry Therapeutic Exercise Time Entry: 4 Manual Therapy Time Entry: 10 Joana Schaefer, PT documented in this encounter [facility] 04-26-2023 Evaluation + Plan note Associated Problem(s): Acute right-sided low back pain with right-sided sciatica No red flags. Will try short course of steroids and muscle relaxant for pain. Patient to not take baclofen while she is taking the Flexeril (she reported Flexeril has helped better in the past), she will also stop taking the meloxicam while she is on the prednisone. Will refer to physical therapy for further evaluation and treatment. [facility] 04-26-2023 Miscellaneous Notes Associated Problem(s): Acute right-sided low back pain with right-sided sciatica No red flags. Will try short course of steroids and muscle relaxant for pain. Patient to not take baclofen while she is taking the Flexeril (she reported Flexeril has helped better in the past), she will also stop taking the meloxicam while she is on the prednisone. Will refer to physical therapy for further evaluation and treatment. documented in this encounter [facility] 04-26-2023 History of Present illness Narrative Patient was identified by name and Date of . Images from the original note were not included. 04/26/2023 Dima Nice (: 1960) is a 62 y.o. female , Established patient, here for evaluation of the following chief complaint(s): Nerve Pain and Leg Pain (Left leg 2.5 wk ago) Where it ASSESSMENT/PLAN: 1. Acute right-sided low back pain with right-sided sciatica Assessment & Plan: No red flags. Will try short course of steroids and muscle relaxant for pain. Patient to not take baclofen while she is taking the Flexeril (she reported Flexeril has helped better in the past), she will also stop taking the meloxicam while she is on the prednisone. Will refer to physical therapy for further evaluation and treatment. Orders: - cyclobenzaprine (Flexeril) 10 MG tablet; Take 1 tablet (10 mg) by mouth 3 times daily as needed for muscle spasms., Starting 04/26/2023, Until 06/25/2023 at 2359, Normal - predniSONE (Deltasone) 20 MG tablet; Take 3 tabs (60mg) daily for 3 days, then take 2 tabs (40mg) daily for 3 days, then take 1 tab (20mg) daily for 3 days., Normal - [facility] Follow up if symptoms worsen or fail to improve, for with specialist. SUBJECTIVE/OBJECTIVE: DELPHINE Nice (: 1960) is a 62 y.o. female , Established patient, here for the evaluation of the following chief complaint(s): Nerve Pain and Leg Pain (Left leg 2.5 wk ago) Patient reports that 5 weeks ago , had cancer. States that she was with him constantly near his bedside in chair for several weeks and that flared up her back. It has been hurting for a good couple of weeks without improvement. Low Back pain right sided sciatic pain, numbness, no change in bowel and bladder. Is doing stretches and not helping at all. Takes meloxicam daily for arthritis. Not helping with her back. States she had some old Flexeril that was that was helpful when she took it states the baclofen is not helping very much. Prior to Admission medications Medication Sig Start Date End Date Taking? Authorizing Provider albuterol (Ventolin HFA) 108 (90 Base) MCG/ACT inhaler Inhale 2 puffs every 6 hours as needed for wheezing or shortness of breath. 03/02/23 03/01/24 Yes JAVIER Araujo CNP allopurinol (Zyloprim) 300 MG tablet Take 0.5 tablets (150 mg) by mouth daily. 01/31/23 Yes Casey Chang MD amLODIPine (Norvasc) 10 MG tablet Take 1 tablet (10 mg) by mouth daily. 02/28/23 Yes JAVIER Araujo CNP baclofen (Lioresal) 10 MG tablet Take 1 tablet (10 mg) by mouth 3 times daily. 10/21/22 Yes Casey Chang MD budesonide-formoterol (Symbicort) 80-4.5 MCG/ACT inhaler Inhale 2 puffs in the morning and 2 puffs in the evening. 08/19/22 Yes Casey Chang MD cholecalciferol (Vitamin D-3) 1.25 MG (54864 UT) capsule Take 1 capsule (1.25 mg) by mouth 1 (one) time per week. 03/16/23 Yes Casey Chang MD citalopram (CeleXA) 40 MG tablet Take 1 tablet (40 mg) by mouth daily. 01/31/23 Yes Casey Chang MD clindamycin (Clindagel) 1 % gel 12/23/21 Yes Historical Provider, fluticasone (Flonase) 50 MCG/ACT nasal spray Administer 2 sprays into each nostril daily. Shake gently. Before first use, prime pump. After use, clean tip and replace cap. 03/16/23 03/15/24 Yes Casey Chang MD Humira Pen 40 MG/0.4ML Pen-injector Kit pen-injector 12/17/21 Yes Historical Provider, lisinopril 30 MG tablet Take 2 tablets by mouth once daily 02/15/23 Yes Casey Chang MD Loratadine 10 MG capsule Take 10 mg by mouth. Yes Historical Provider, meloxicam (Mobic) 15 MG tablet Take 1 tablet (15 mg) by mouth daily. 03/16/23 Yes Casey Chang MD omeprazole (PriLOSEC) [address] capsule Take 1 capsule (20 mg) by mouth in the morning and 1 capsule (20 mg) in the evening. Take before meals. 01/17/23 Yes JAVIER Araujo CNP rosuvastatin (Crestor) 40 MG tablet Take 1 tablet (40 mg) by mouth daily. 01/31/23 Yes Casey Chang MD LORazepam (Ativan) 0.5 MG tablet Take 1 tablet (0.5 mg) by mouth 2 times daily as needed for anxiety. 01/31/23 03/02/23 Casey Chang MD Review of Systems Constitutional: Positive for fatigue. Negative for activity change, chills and fever. Respiratory: Negative. Cardiovascular: Negative. Gastrointestinal: Negative. Genitourinary: Negative for difficulty urinating. Musculoskeletal: Positive for back pain. Vitals: 04/26/23 1150 BP: 130/72 Pulse: 86 Resp: 24 Temp: 37 C (98.6 F) TempSrc: Infrared Weight: 271 lb (123 kg) Physical Exam Constitutional: General: She is not in acute distress. Appearance: Normal appearance. She is obese. She is not ill-appearing. Cardiovascular: Rate and Rhythm: Normal rate and regular rhythm. Pulses: Normal pulses. Heart sounds: Normal heart sounds. Pulmonary: Effort: Pulmonary effort is normal. Breath sounds: Normal breath sounds. Musculoskeletal: Lumbar back: Spasms and tenderness present. No bony tenderness. Decreased range of motion. Negative right straight leg raise test and negative left straight leg raise test. Back: Comments: Able to get on the exam table without difficulty Skin: General: Skin is warm and dry. Neurological: Mental Status: She is alert and oriented to person, place, and time. Comments: Push pull 5 out of 5 lower extremities, normal DTR lower extremities An electronic signature was used to authenticate this note. JAVIER Napier CNP 04/26/2023 4:39 PM documented in this encounter [facility] 04-26-2023 Instructions JAVIER Napier CNP - 04/26/2023 11:40 AM EDT While taking prednisone, do NOT take any NSAIDs (mobic (meloxicam), ibuprofen, naproxen, naprosyn) ok to take acetaminophen 1000 mg every 8 hours ok if needed. Ok to resume meloxicam after completing the prednisone documented in this encounter [facility] [employer] 03-16-2023 Telephone encounter Note Prescription Request: Last medication check: 01/20/23 Last physical exam: 09/30/21 Next scheduled appointment: none Last date of refill on this medication Vitamin d 08/19/22 12 capsules 1 refill Flonase 01/31/23 1 bottle 5 refill- please refuse Meloxicam 08/19/22 90 day 1 refill [facility] [employer] 03-16-2023 Miscellaneous Notes Prescription Request: Last medication check: 01/20/23 Last physical exam: 09/30/21 Next scheduled appointment: none Last date of refill on this medication Vitamin d 08/19/22 12 capsules 1 refill Flonase 01/31/23 1 bottle 5 refill- please refuse Meloxicam 08/19/22 90 day 1 refill documented in this encounter [facility] [employer] 02-28-2023 Telephone encounter Note Refill sent. Please have her send in some home blood pressure readings for review. Thank you. Also due for her physical around September- please schedule. Thank you. [facility] [employer] 02-28-2023 Miscellaneous Notes Refill sent. Please have her send in some home blood pressure readings for review. Thank you. Also due for her physical around September- please schedule. Thank you. Prescription Request: Last medication check: 01/20/23 Last physical exam: 09/30/21 Next scheduled appointment: none Last date of refill on this medication 01/31/23 30 day no refill documented in this encounter [facility] 02-28-2023 Telephone encounter Note Prescription Request: Last medication check: 01/20/23 Last physical exam: 09/30/21 Next scheduled appointment: none Last date of refill on this medication 01/31/23 30 day no refill [facility] 01-20-2023 Evaluation + Plan note Associated Problem(s): Anxiety Partial remission, continue Celexa 40 mg daily, lorazepam 0.5 mg as needed. [facility] 01-20-2023 Miscellaneous Notes Associated Problem(s): Anxiety Partial remission, continue Celexa 40 mg daily, lorazepam 0.5 mg as needed. Associated Problem(s): Depression Partial remission, continue Celexa 40 mg daily Associated Problem(s): High cholesterol Controlled, continue rosuvastatin 40 mg daily Associated Problem(s): Idiopathic 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 Controlled, continue allopurinol 200 mg daily Associated Problem(s): Vitamin D deficiency Stable, continue continue current medication Associated Problem(s): Hypertension Blood pressure was initially elevated, recheck was still high, continue current medications lisinopril 30 mg daily and follow-up in 1 week for blood pressure check. Associated Problem(s): Asthma Stable, continue Symbicort and albuterol. documented in this encounter [facility] 01-20-2023 Evaluation + Plan note Associated Problem(s): Depression Partial remission, continue Celexa 40 mg daily [facility] 01-20-2023 Evaluation + Plan note Associated Problem(s): High cholesterol Controlled, continue rosuvastatin 40 mg daily [facility] 01-20-2023 Evaluation + Plan note Associated Problem(s): Idiopathic 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 Controlled, continue allopurinol 200 mg daily [facility] 01-20-2023 Evaluation + Plan note Associated Problem(s): Vitamin D deficiency Stable, continue continue current medication [facility] 01-20-2023 Evaluation + Plan note Associated Problem(s): Hypertension Blood pressure was initially elevated, recheck was still high, continue current medications lisinopril 30 mg daily and follow-up in 1 week for blood pressure check. [facility] [employer] 01-20-2023 Evaluation + Plan note Associated Problem(s): Asthma Stable, continue Symbicort and albuterol. [employer] 01-20-2023 History of Present illness Narrative Patient verified by last name and date of . Images from the original note were not included. 01/20/2023 Dima Nice (: 1960) is a 62 y.o. female , Established patient, here for evaluation of the following chief complaint(s): Anxiety (declined the Roosevelt 7 has anxiety and it has not changed), Depression (Declined PHQ 9 states has depression and it has not changed ), Vitamin D Deficiency, Hypertension, Asthma, Medication Check (3 month), and Health Maintenance (Colonoscopy- sched 02/2023/Hep a and b vaccine- will discuss with Dr Chang/Rsv vaccine- will go to pharmacy for this/Mammogram- done 2 yrs ago and will not have another/Flu vaccine- agree/Pt asking if she is due for a pneumo 23 vaccine? Had pcv 20 last yr) ASSESSMENT/PLAN: 1. Mild intermittent asthma without complication Assessment & Plan: Stable, continue Symbicort and albuterol. 2. Primary hypertension Assessment & Plan: Blood pressure was initially elevated, recheck was still high, continue current medications lisinopril 30 mg daily and follow-up in 1 week for blood pressure check. 3. Vitamin D deficiency Assessment & Plan: Stable, continue continue current medication Orders: - Vitamin D Deficiency Screening (Vit D 25) 4. High cholesterol Assessment & Plan: Controlled, continue rosuvastatin 40 mg daily Orders: - Lipid panel 5. Major depressive disorder in partial remission, unspecified whether recurrent (HCC) Assessment & Plan: Partial remission, continue Celexa 40 mg daily 6. Anxiety Assessment & Plan: Partial remission, continue Celexa 40 mg daily, lorazepam 0.5 mg as needed. 7. Idiopathic 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 Assessment & Plan: Controlled, continue allopurinol 200 mg daily Orders: - Uric acid 8. Screening for diabetes mellitus - Comprehensive metabolic panel Follow up in about 3 months (around 04/21/2023). 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 Her gout seems to be fairly well-controlled she says occasionally feels like she is going to have a flareup but nothing has been significant. Blood pressure is elevated today we will recheck that prior to discharge and she needs lab work for vitamin D deficiency and high cholesterol. Review of Systems Constitutional: Negative for chills and fever. Respiratory: Negative for shortness of breath. Cardiovascular: Negative for chest pain and palpitations. Gastrointestinal: Negative for abdominal pain, blood in stool, constipation and diarrhea. Genitourinary: Negative for dyspareunia, dysuria, frequency, hematuria and urgency. Neurological: Negative for weakness and numbness. Psychiatric/Behavioral: Negative for dysphoric mood. The patient is not nervous/anxious. Vitals: 01/20/23 1106 01/20/23 1133 BP: (!) 161/100 (!) 151/98 Pulse: 82 75 SpO2: 95% Weight: 277 lb 3.2 oz (126 kg) Height: 5' 3" (1.6 m) Physical Exam Vitals and nursing note reviewed. Constitutional: General: She is not in acute distress. Appearance: Normal appearance. HENT: Head: Normocephalic and atraumatic. Mouth/Throat: Mouth: Mucous membranes are moist. Pharynx: Oropharynx is clear. Eyes: Extraocular Movements: Extraocular movements intact. Pupils: Pupils are equal, round, and reactive to light. Cardiovascular: Rate and Rhythm: Normal rate and regular rhythm. Heart sounds: Normal heart sounds. No murmur heard. Pulmonary: Effort: Pulmonary effort is normal. Breath sounds: Normal breath sounds. Musculoskeletal: Cervical back: Neck supple. Lymphadenopathy: Cervical: No cervical adenopathy. Neurological: Mental Status: She is alert. An electronic signature was used to authenticate this note. Casey Chang MD 01/20/2023 5:22 PM After obtaining consent, and per orders of Dr. Chang, injection of [id number] and flu vaccine given in right deltoid by Nathaly Goldstein. Patient instructed to report any adverse reaction immediately. documented in this encounter [facility] 01-17-2023 Telephone encounter Note Rx sent. Follow up as scheduled. [facility] 01-17-2023 Miscellaneous Notes Rx sent. Follow up as scheduled. Prescription Request: Last medication check: 10-21-22 Last physical exam: 09-30-21 Next scheduled appointment: 01-20-23 Last date of refill on this medication 08-19-22 documented in this encounter [facility] 01-17-2023 Telephone encounter Note Prescription Request: Last medication check: 10-21-22 Last physical exam: 09-30-21 Next scheduled appointment: 01-20-23 Last date of refill on this medication 08-19-22 [facility] 10-21-2022 Evaluation + Plan note Associated Problem(s): Depression Partial remission, continue Celexa 40 mg daily [facility] 10-21-2022 Evaluation + Plan note Associated Problem(s): Anxiety Partial remission, continue Celexa 40 mg daily and lorazepam 0.5 mg twice a day as needed, OARRS report done, no inconsistencies, CS agreement signed today, Rx sent [facility] 10-21-2022 Miscellaneous Notes Associated Problem(s): Depression Partial remission, continue Celexa 40 mg daily Associated Problem(s): Anxiety Partial remission, continue Celexa 40 mg daily and lorazepam 0.5 mg twice a day as needed, OARRS report done, no inconsistencies, CS agreement signed today, Rx sent Associated Problem(s): Diarrhea in adult patient Lomotil 1 tablet up to 4 times a day as needed OARRS report done, no inconsistencies, Rx sent Associated Problem(s): Hypertension Controlled, continue lisinopril 30 mg 2 a day documented in this encounter [facility] 10-21-2022 Evaluation + Plan note Associated Problem(s): Diarrhea in adult patient Lomotil 1 tablet up to 4 times a day as needed OARRS report done, no inconsistencies, Rx sent [facility] 10-21-2022 Evaluation + Plan note Associated Problem(s): Hypertension Controlled, continue lisinopril 30 mg 2 a day [facility] 10-21-2022 History of Present illness Narrative Patient verified by last name and date of . Images from the original note were not included. 10/21/2022 Dima Nice (: 1960) is a 62 y.o. female , Established patient, here for evaluation of the following chief complaint(s): Follow-up (4 week/Hepatic steatosis ) ASSESSMENT/PLAN: 1. Primary hypertension Assessment & Plan: Controlled, continue lisinopril 30 mg 2 a day 2. Anxiety Assessment & Plan: Partial remission, continue Celexa 40 mg daily and lorazepam 0.5 mg twice a day as needed, OARRS report done, no inconsistencies, CS agreement signed today, Rx sent Orders: - LORazepam (Ativan) 0.5 MG tablet; Take 1 tablet (0.5 mg) by mouth 2 times daily as needed for anxiety., Starting Grace 10/21/2022, Until 11/20/2022 at 2359, Normal 3. Major depressive disorder in partial remission, unspecified whether recurrent (HCC) Assessment & Plan: Partial remission, continue Celexa 40 mg daily 4. Diarrhea in adult patient Assessment & Plan: Lomotil 1 tablet up to 4 times a day as needed OARRS report done, no inconsistencies, Rx sent Orders: - diphenoxylate-atropine (Lomotil) 2.5-0.025 MG tablet; Take 1 tablet by mouth 4 times daily as needed for diarrhea for up to 7 days., Starting Grace 10/21/2022, Until Grace 10/28/2022 at 2359, Normal Follow up in about 3 months (around 01/20/2023). SUBJECTIVE/OBJECTIVE: HPI Oly comes in today for a 4-week follow-up, she says she is actually starting to do better although she is under significant stress at home with her who has cancer. He has palliative care coming in and they recommended getting home health to come in however is what she needs is not home health what she needs is help at night so she can get her rest and we discussed that there are organizations out there that can help with that. She says she continues to deal with diarrhea on a regular basis and she said couple months ago we gave her some medication that she would take 1 in the morning and it would keep the diarrhea under control all day. Blood pressure is well controlled today. Review of Systems Constitutional: Negative for chills and fever. HENT: Negative for ear pain, rhinorrhea and sinus pressure. Respiratory: Negative for shortness of breath. Cardiovascular: Negative for chest pain and palpitations. Psychiatric/Behavioral: Positive for dysphoric mood. The patient is nervous/anxious. Vitals: 10/21/22 1049 BP: 118/79 Pulse: 86 SpO2: 93% Weight: 266 lb (121 kg) Height: 5' 3" (1.6 m) Physical Exam Vitals and nursing note reviewed. Constitutional: General: She is not in acute distress. Appearance: Normal appearance. HENT: Head: Normocephalic. Mouth/Throat: Mouth: Mucous membranes are moist. Pharynx: Oropharynx is clear. Eyes: Extraocular Movements: Extraocular movements intact. Pupils: Pupils are equal, round, and reactive to light. Neck: Vascular: No carotid bruit. Cardiovascular: Rate and Rhythm: Normal rate and regular rhythm. Heart sounds: Normal heart sounds. No murmur heard. Pulmonary: Effort: Pulmonary effort is normal. Breath sounds: Normal breath sounds. Abdominal: General: Bowel sounds are normal. Palpations: Abdomen is soft. Musculoskeletal: General: Normal range of motion. Cervical back: Normal range of motion. Lymphadenopathy: Cervical: No cervical adenopathy. Skin: General: Skin is warm and dry. Neurological: General: No focal deficit present. Mental Status: She is alert and oriented to person, place, and time. Psychiatric: Mood and Affect: Mood is anxious and depressed. Affect is labile. An electronic signature was used to authenticate this note. Casey Chang MD 10/21/2022 1:02 PM documented in this encounter [facility] 09-22-2022 Evaluation + Plan note Associated Problem(s): Hepatic steatosis Discussed causes for fatty liver and recommended weight loss and we discussed diet and exercise. [facility] 09-22-2022 Miscellaneous Notes Associated Problem(s): Hepatic steatosis Discussed causes for fatty liver and recommended weight loss and we discussed diet and exercise. documented in this encounter [facility] 09-22-2022 History of Present illness Narrative Patient verified by last name and date of . Images from the original note were not included. 09/22/2022 Dima Nice (: 1960) is a 62 y.o. female , Established patient, here for evaluation of the following chief complaint(s): Results (Follow up CT- liver and kidney ) and Health Maintenance (Pt refused- hiv and hep c screening, lung screening, mammogram/Covid 5 vaccine- pt states all caught up/Colonoscopy- pt is sched /Mmr vaccine- done as child) ASSESSMENT/PLAN: 1. Hepatic steatosis Assessment & Plan: Discussed causes for fatty liver and recommended weight loss and we discussed diet and exercise. Follow up if symptoms worsen or fail to improve. SUBJECTIVE/OBJECTIVE: HPI -Dima comes in today, concerned about her fatty infiltration of her liver, she is minimal being worked up by GI and they did an ultrasound which showed some fatty infiltration and she got online and she found out that alcohol contributes to that but she said she has been drinking 1 or 2 glasses of wine with dinner for the last couple of years and she is wondering if that could be contributing to it. She also has a body mass index of 47 she is significantly overweight and I explained to her that was probably more of the culprit than her alcohol intake. We discussed diet and exercise and she was relieved that this did not necessarily stem from her drinking. Although I did recommend she stop drinking if she does not need to. Review of Systems Gastrointestinal: Positive for diarrhea. Negative for abdominal pain and constipation. Genitourinary: Negative for dysuria, hematuria and urgency. Vitals: 09/22/22 0932 09/22/22 1000 BP: (!) 154/87 137/84 Pulse: 88 79 SpO2: 94% Weight: 267 lb 6.4 oz (121 kg) Height: 5' 3" (1.6 m) Physical Exam Vitals and nursing note reviewed. Constitutional: General: She is not in acute distress. Appearance: Normal appearance. HENT: Head: Normocephalic and atraumatic. Mouth/Throat: Mouth: Mucous membranes are moist. Pharynx: Oropharynx is clear. Eyes: Extraocular Movements: Extraocular movements intact. Pupils: Pupils are equal, round, and reactive to light. Cardiovascular: Rate and Rhythm: Normal rate and regular rhythm. Heart sounds: Normal heart sounds. No murmur heard. Pulmonary: Effort: Pulmonary effort is normal. Breath sounds: Normal breath sounds. Abdominal: General: Bowel sounds are normal. Palpations: Abdomen is soft. Tenderness: There is no abdominal tenderness. Musculoskeletal: Cervical back: Neck supple. Lymphadenopathy: Cervical: No cervical adenopathy. Neurological: Mental Status: She is alert. Psychiatric: Mood and Affect: Mood normal. An electronic signature was used to authenticate this note. Casey Chang MD 09/22/2022 4:09 PM documented in this encounter [facility] 09-09-2022 Miscellaneous Notes US reviewed. Mild hepatic steatosis (fatty liver) and ? hemangioma. This would not cause her symptoms, just incidental findings. Would recommend to repeat imaging in 6 months for surveillance. Also noted was left kidney structure, ? angiomyolipoma which in that case is benign. Would recommend to speak to PCP regarding further imaging or surveillance in the future. Please call patient and relay recommendations. documented in this encounter [facility] 09-09-2022 Progress note Formatting of t his note might be different from the original. US reviewed. Mild hepatic steatosis (fatty liver) and ? hemangioma. This would not cause her symptoms, just incidental findings. Would recommend to repeat imaging in 6 months for surveillance. Also noted was left kidney structure, ? angiomyolipoma which in that case is benign. Would recommend to speak to PCP regarding further imaging or surveillance in the future. Please call patient and relay recommendations. [facility] 09-07-2022 History of Present illness Narrative Images from the original note were not included. [facility] [address] [place] [id number] Dept: [phone] Dept Loc: [phone] Visit type: New patient Reason for Visit: New Patient, Diarrhea, Vomiting, Gas, and Abdominal Pain (Burning pain- epigastric) Assessment and Plan Diagnosis Plan 1. Nausea and vomiting Pancreatic elastase, fecal Ova and parasite examination Pancreatic elastase, fecal Ova and parasite examination US abdomen complete 2. Bloating Pancreatic elastase, fecal Ova and parasite examination Pancreatic elastase, fecal Ova and parasite examination US abdomen complete 3. Epigastric burning sensation Pancreatic elastase, fecal Ova and parasite examination Pancreatic elastase, fecal Ova and parasite examination US abdomen complete 4. Diarrhea psyllium (Metamucil) 28 % packet Pancreatic elastase, fecal Ova and parasite examination Pancreatic elastase, fecal Ova and parasite examination 5. Gastroesophageal reflux disease 6. Irritable bowel syndrome (IBS) -EGD and colonoscopy to be completed for further evaluation of symptoms -US to be completed r/o hepatobiliary causes of pain -Stool studies to be completed r/o EPI, infectious process -Stop probiotics as this could be contributing to s/s -Increase omeprazole 20mg daily to TWICE daily, 30 mins before meals -Start fiber supplement powder (Metamucil) daily to improve bowel regimen -Decrease stress and anxiety in daily life as much as possible -Avoid triggering foods/drinks, NSAID's -Follow up in GI office after above completed for further recommendations Subjective Dima Nice is a 62 year old female who presents to the office for diarrhea under the consultation of Casey Chang MD. HPI -Endorses IBS "my whole life." States that she has long history of GI s/s, however was feeling ok for some time until June 06. She states that she had a dinner alliance party and believed that she had food poisoning. Endorses bloating, epigastric pain, nausea, worse after eating. Diarrhea up to 10x in a day. Endorses ~14 lb weight loss over the last 3 months. Symptoms will wake her from sleeping. Cdiff and GI panel negative per PCP. CT reviewed from 08/2022. -Saw GI [facility]- Dr Novak 07/30/22 for current s/s. States that she scheduled colonoscopy for Aug and had negative celiac panel completed. I explained the importance of following up with only 1 GI provider at a time for continuity of care. She states that she would like to start workup here and will cancel her follow up at [facility] as Dr Novak is leaving. -States that she has been under "the most stress" she has ever had as her was recently dx with terminal cancer. Discussed the effects of anxiety/depression in relation to GI s/s. Patient verbalizes understanding. -She takes omeprazole 20mg daily. Will recommend to increase this to bid. -Diet consists of healthy options, proteins. -Last EGD/colonoscopy date is unknown. Patient believes maybe 15 years ago, states she was told that she had polyps. OV note from [facility] Dr Novak 07/30/22: Dima Nice is a 62 year old female here today for Diarrhea (Has been going on for years. Labs 06/18/22 Left sided abdominal pain when she eats gluten.) She is c/o- pain lower abdomen with diarrhea for last 7-8 weeks which began after she ate some salad at house alliance party. She is having 5-10 watery BM a day and sometimes wakes up at night to have BM. Also c/o- lower abdomen which is crampy. She has lost 20 lbs over last 8 weeks. No h/o- nausea, vomiting, loss of appetite, hematemesis, bleeding OK, unexplained weight loss, tenesmus. She tried to eliminate gluten from her diet which helped with abdominal pain but not with diarrhea. Her PCP checked her for C diff which is negative." ETOH: 2 glasses of wine daily Tobacco: 1ppd Recreational drug use: no Anticoagulants: no Aspirin/NSAID use: no Last EGD: >10-15 years ago Last Colonoscopy: >10-15 years ago Personal history of colon polyps: yes Family history of colon cancer: no Prior abdominal surgeries: appendix, hysterectomy Review of Systems Constitutional: Positive for fatigue and unexpected weight change (~14 in 3 months). Negative for activity change, appetite change, chills and fever. HENT: Negative for sore throat, trouble swallowing and voice change. Respiratory: Negative for shortness of breath. Cardiovascular: Negative for chest pain. Gastrointestinal: Positive for abdominal distention, abdominal pain (epigastic pain), diarrhea (up to 10x per day), nausea and vomiting. Negative for anal bleeding, blood in stool, constipation and rectal pain. +heartburn Genitourinary: Negative for difficulty urinating. Musculoskeletal: Positive for arthralgias. Negative for joint swelling. Skin: Negative for pallor. Neurological: Positive for weakness. Negative for dizziness. Psychiatric/Behavioral: Positive for sleep disturbance. Negative for confusion. Allergies Allergen Reactions Codeine Other reaction(s): Other: See Comments Other reaction(s): Other: See Comments Mind changes Mind changes Seasonal Ic [Cholestatin] Outpatient Medications Prior to Visit Medication Sig Dispense Refill albuterol 0.63 MG/3ML nebulizer solution Take 3 mL by nebulization every 6 hours as needed. albuterol 108 (90 Base) MCG/ACT inhaler Inhale 2 puffs every 6 hours as needed for wheezing or shortness of breath. 3 each 1 allopurinol (Zyloprim) 300 MG tablet Take 0.5 tablets (150 mg) by mouth daily. 90 tablet 1 baclofen (Lioresal) 10 MG tablet Take 1 tablet (10 mg) by mouth in the morning and 1 tablet (10 mg) at noon and 1 tablet (10 mg) before bedtime. 90 tablet 1 budesonide-formoterol (Symbicort) 80-4.5 MCG/ACT inhaler Inhale 2 puffs in the morning and 2 puffs in the evening. 3 each 1 cholecalciferol (Vitamin D-3) 1.25 MG (05739 UT) capsule Take 1 capsule (1.25 mg) by mouth 1 (one) time per week. 12 capsule 1 citalopram (CeleXA) 40 MG tablet Take 1 tablet (40 mg) by mouth daily. (Patient taking differently: Take 20 mg by mouth daily.) 90 tablet 1 clindamycin (Clindagel) 1 % gel Humira Pen 40 MG/0.4ML Pen-injector Kit pen-injector lisinopril 30 MG tablet Take 2 tablets (60 mg) by mouth daily. 60 tablet 3 Loratadine 10 MG capsule Take 10 mg by mouth. LORazepam (Ativan) 0.5 MG tablet Take 1 tablet (0.5 mg) by mouth 2 times daily as needed for anxiety. 60 tablet 0 meloxicam (Mobic) 15 MG tablet Take 1 tablet (15 mg) by mouth daily. 90 tablet 1 omeprazole (PriLOSEC) [address] capsule Take 1 capsule (20 mg) by mouth daily. 90 capsule 1 rosuvastatin (Crestor) 40 MG tablet Take 1 tablet (40 mg) by mouth daily. 90 tablet 1 zinc 100 MG tablet Take by mouth. Cannabinoids (medical cannabis) Take by mouth. Cannabinoids (medical cannabis) Take by mouth. No facility-administered medications prior to visit. Patient Active Problem List Diagnosis Date Noted Diarrhea in adult patient 06/18/2022 Priority: Medium Anxiety 03/05/2022 Priority: Medium Depression 09/30/2021 Priority: Medium Primary osteoarthritis involving multiple joints 09/30/2021 Priority: Medium Vitamin D deficiency 09/30/2021 Priority: Medium High cholesterol 09/30/2021 Priority: Medium Hypertension 09/30/2021 Priority: Medium Asthma 09/30/2021 Priority: Medium Social History Tobacco Use Smoking status: Every Day Packs/day: 1.00 Years: 45.00 Pack years: 45.00 Types: Cigarettes Start date: 02/15/1980 Smokeless tobacco: Never Substance Use Topics Alcohol use: Yes Alcohol/week: 8.0 standard drinks of alcohol Types: 8 Glasses of wine per week Comment: couple glaases of wine few times a week Family History Problem Relation Name Age of Onset Heart disease Mother Mom chf Depression Mother Mom Immunodeficiency Mother Mom Macular degeneration Father Celiac disease Father Crohn's disease Niece Celiac disease Niece Objective BP 135/82 Pulse 72 Temp 36.8 C (98.3 F) Ht 5' 3" (1.6 m) Wt 269 lb (122 kg) SpO2 97% BMI 47.65 kg/m Physical Exam Vitals reviewed. Constitutional: General: She is not in acute distress. Appearance: Normal appearance. She is not ill-appearing. HENT: Head: Normocephalic. Nose: Nose normal. Mouth/Throat: Mouth: Mucous membranes are moist. Eyes: General: No scleral icterus. Cardiovascular: Rate and Rhythm: Normal rate. Pulses: Normal pulses. Heart sounds: Normal heart sounds. Pulmonary: Effort: Pulmonary effort is normal. No respiratory distress. Abdominal: General: Bowel sounds are normal. There is no distension. Tenderness: There is abdominal tenderness (epigastric ttp). There is no guarding. Musculoskeletal: General: No swelling. Cervical back: Normal range of motion. Skin: Coloration: Skin is not jaundiced. Neurological: General: No focal deficit present. Mental Status: She is alert and oriented to person, place, and time. Psychiatric: Mood and Affect: Mood is anxious. Behavior: Behavior normal. Thought Content: Thought content normal. Judgment: Judgment normal. Data Reviewed and Summarized Labs: No results found for: WBC, HGB, HCT, MCV, PLT Lab Results Component Value Date GLUCOSE 98 09/30/2021 CALCIUM 9.1 09/30/2021 NA 136 09/30/2021 K 4.6 09/30/2021 CO2 25 09/30/2021 CL 105 09/30/2021 BUN 16 09/30/2021 CREATININE 0.83 09/30/2021 Lab Results Component Value Date CALCIUM 9.1 09/30/2021 No results found for: HAV, HEPAIGM, HEPBIGM, HEPBCAB, HBEAG, HEPCAB No results found for: INR, PROTIME Lab Results Component Value Date ALT 21 01/28/2022 AST 20 01/28/2022 ALKPHOS 89 09/30/2021 BILITOT 0.5 09/30/2021 Imaging/Testing: Prior EGD/Colonoscopy: None Anu Guadalupe APRN - CNP 09/07/22 12:01 PM documented in this encounter [facility] [employer] 09-07-2022 Instructions Carolina Perez MA - 09/07/2022 10:00 AM EDT -EGD and colonoscopy to be completed, has prep already (Not [facility] or [place]) pt will abhinav back to schedule. faustino -US to be completed -Stool studies to be completed Orders given to patient. -Stop probiotic and fiber gummies as discussed -Increase omeprazole 20mg daily to TWICE daily -Start fiber supplement daily that I have called in for you -Decrease stress and anxiety in daily life if possible -Avoid triggering foods/drinks, NSAID's -Follow up in GI office after above completed for further recommendations The following attachments cannot be sent through Care Everywhere.Upper GI Endoscopy ([place])Colonoscopy ([place])IBS Diet ([place])documented in this encounter [facility] 09-07-2022 Miscellaneous Notes Addended by: MARILEE PHAM on: 09/10/2022 11:17 AM Modules accepted: Orders documented in this encounter [facility] 09-07-2022 Note Addended by: MARILEE MADDOX on: 09/10/2022 11:17 AM Modules accepted: Orders [facility] 08-19-2022 Telephone encounter Note Prescription Request: Last medication check: 06/18/22 Last physical exam: 09/30/21 Next scheduled appointment: na Last date of refill on this medication 05/17/22 [facility] 08-19-2022 Miscellaneous Notes Prescription Request: Last medication check: 06/18/22 Last physical exam: 09/30/21 Next scheduled appointment: na Last date of refill on this medication 05/17/22 documented in this encounter [facility] 07-15-2022 History of Present illness Narrative Subjective HPI Nontoxic-appearing female presents urgent care chief complaint loose stools nausea and transient abdominal pain. First noticed this June 06. Symptoms have stayed for persistent. States some days she has 3-4 loose stools. Other days she has 8-10. No blood in stool. Has tried Imodium this has helped some. States she has been diagnosed with diverticulosis before never diverticulitis. Was seen by PCP. Placed on Lomotil. This helped some. Negative stool studies. Denies any fever body aches chills productive cough chest pain shortness of breath pleuritic pain hemoptysis nausea vomiting abdominal pain or rashes. Past medical history prescription medication use and allergies reviewed. .Patient presents with: Diarrhea: Diarrhea, nausea and left lower abdominal pain since 06/06 PAST MEDICAL HISTORY Diagnosis Date Allergies Anxiety Arthritis Depression Gout Hiatal hernia High cholesterol Hydradenitis Hypertension Lyme disease triggered severe arthritis Vitamin D deficiency PAST SURGICAL HISTORY Procedure Laterality Date APPENDECTOMY HX BIOPSY BREAST benign HYSTERECTOMY ALLERGIES Codeine MEDICATIONS [id number]-[id number] (CORICIDIN HBP DAY-NIGHT) 10-200 mg(dy)/2 -15-500 mg(nt) TCSq Per box instructions LORazepam (ATIVAN) 0.5 mg rosuvastatin (CRESTOR) 40 mg tablet Take 40 mg by mouth once daily. allopurinol (ZYLOPRIM) 300 mg tablet TAKE 1/2 (ONE-HALF) TABLET BY MOUTH IN THE MORNING budesonide-formoterol (SYMBICORT) 80-4.5 mcg/actuation inhaler Inhale 2 Puffs as instructed twice daily. HUMIRA,CF, PEN 40 mg/0.4 mL pen kit fluticasone (FLONASE) 50 mcg/actuation nasal spray allopurinol (ZYLOPRIM) 100 mg tablet Take 0.5 tablets by mouth once daily. For gout. omeprazole (PRILOSEC) 20 mg capsule Take 1 capsule by mouth once daily. pravastatin (PRAVACHOL) 20 mg tablet Take 1 tablet by mouth once daily. meloxicam (MOBIC) 15 mg tablet Take 0.5 tablets by mouth twice daily. cholecalciferol, Vitamin D3, (VITAMIN D3) 1,250 mcg (50,000 unit) cap capsule Take 1 capsule by mouth one time a week. cyclobenzaprine (FLEXERIL) 10 mg tablet Take 1 tablet by mouth three times daily as needed for muscle spasm. citalopram hydrobromide (CELEXA ORAL) Take 30 mg by mouth once daily. lisinopril (ZESTRIL, PRINIVIL) 20 mg tablet Take 20 mg by mouth once daily. albuterol HFA (PROAIR HFA) 90 mcg/actuation inhaler Inhale 2 Puffs as instructed every 6 hours as needed. Ipratropium [place] (ATROVENT) 21 mcg (0.03 %) nasal spray Use 2 Sprays in the nose every 12 hours for 10 days. benzonatate (TESSALON PERLES) 100 mg capsule Take 1 capsule by mouth three times daily as needed for cough. (Patient not taking: Reported on 07/15/2022) FAMILY HISTORY Problem Relation Age of Onset Immune Deficiency Mother Celiac Disease Father Heart Father Diabetes Paternal Grandmother Social History Tobacco Use Smoking status: Every Day Packs/day: 1.00 Types: Cigarettes Start date: 12/25/1973 Smokeless tobacco: Never Vaping Use Vaping Use: Never used Substance Use Topics Alcohol use: Yes Alcohol/week: 3.0 standard drinks Types: 3 Glasses of Wine (5oz) per week Comment: couple times/week BP 122/78 Pulse 84 Temp 36.9 C (98.4 F) (Tympanic) Resp 18 Wt 123.5 kg (272 lb 3.2 oz) SpO2 95% Review of Systems Constitutional: Negative for chills, fever and malaise/fatigue. HENT: Negative for congestion, ear discharge, ear pain, sinus pain and sore throat. Eyes: Negative for blurred vision, pain, discharge and redness. Respiratory: Negative for cough, hemoptysis, sputum production, shortness of breath, wheezing and stridor. Cardiovascular: Negative for chest pain. Gastrointestinal: Positive for abdominal pain, diarrhea and nausea. Negative for vomiting. Musculoskeletal: Negative for myalgias. Skin: Negative for itching and rash. Neurological: Negative for dizziness and headaches. Objective Physical Exam Constitutional: General: She is not in acute distress. Appearance: She is not diaphoretic. HENT: Head: Normocephalic. Mouth/Throat: Mouth: Mucous membranes are moist. Pharynx: Oropharynx is clear. No oropharyngeal exudate or posterior oropharyngeal erythema. Eyes: Conjunctiva/sclera: Conjunctivae normal. Pupils: Pupils are equal, round, and reactive to light. Cardiovascular: Rate and Rhythm: Normal rate and regular rhythm. Heart sounds: Normal heart sounds. Pulmonary: Effort: Pulmonary effort is normal. No tachypnea, accessory muscle usage or respiratory distress. Breath sounds: Normal breath sounds. No stridor. No wheezing, rhonchi or rales. Abdominal: General: There is no distension. Palpations: Abdomen is soft. Tenderness: There is no abdominal tenderness. There is no guarding or rebound. Musculoskeletal: Cervical back: Normal range of motion and neck supple. No rigidity or tenderness. Lymphadenopathy: Cervical: No cervical adenopathy. Skin: General: Skin is warm and dry. Neurological: Mental Status: She is alert and oriented to person, place, and time. ASSESSMENT/PLAN: 1. Loose stools - ICD9: 787.7, ICD10: R19.5 - CONSULT TO GASTROENTEROLOGY No evidence of acute abdomen. Diagnosed loose stool. Refer to gastroenterology for persistent symptoms. Previous negative stool studies. Try dietary measures for management of loose stools. Red flags reevaluation discussed. Patient was educated on supportive therapies. Patient will follow up with primary care provider as needed. Patient was instructed to immediately proceed to emergency room for any new, worsening, or symptoms lasting longer than anticipated. The patient's clinical presentation is otherwise unremarkable at this time. Based on exam and clinical finding, the patient is stable for discharge. Plan of care was discussed with patient. Patient verbalizes understanding and agrees to plan of care. This note was generated using [employer] software. It may contain errors in wording, punctuation, or spelling. Gus Castaneda APRN.NED documented in this encounter [facility] 06-18-2022 Evaluation + Plan note Associated Problem(s): Diarrhea in adult patient We will have her collect a stool sample and take it to the hospital lab, will start her on some Lomotil over the weekend. [facility] 06-18-2022 Miscellaneous Notes Associated Problem(s): Diarrhea in adult patient We will have her collect a stool sample and take it to the hospital lab, will start her on some Lomotil over the weekend. documented in this encounter [facility] 06-18-2022 Telephone encounter Note Seen in office [facility] 06-18-2022 Miscellaneous Notes Seen in office S: Patient spoke with [facility] nurse regarding violent diarrhea. B: Onset of symptoms sine 06/06/22. A: Had a family potlick since 06/06/22, states she has has awful diarrhea, took Immodium for 2 days and stopped and started again. Asking for testing, drinking water, light abd pain, no fever, foul odor, greesy BM floating, having more than 7 times a day, recent ATB use 1 month ago. R: Appointment scheduled, address given to the patient, instructed to bring phot ID, insurance info and medication list to the appointment. Advised to wear mask. Patient understands care advice. No further needs at this time. Patient instructed to call back with new or worsening symptoms. Reason for Disposition SEVERE diarrhea (e.g., 7 or more times / day more than normal) and age > 60 years Protocols used: [id number] documented in this encounter [facility] 06-18-2022 History of Present illness Narrative Patient verified by last name and date of . Patient wants a manager body in the room during during the visit. no Wire Bender na Images from the original note were not included. 06/18/2022 Dima Nice (: 1960) is a 61 y.o. female , Established patient, here for evaluation of the following chief complaint(s): Diarrhea (For about 2 weeks ) ASSESSMENT/PLAN: 1. Diarrhea in adult patient Assessment & Plan: We will have her collect a stool sample and take it to the hospital lab, will start her on some Lomotil over the weekend. Orders: - C. difficile Toxins EIA - Gastrointestinal PCR Panel - diphenoxylate-atropine (Lomotil) 2.5-0.025 MG tablet; Take 1 tablet by mouth 4 times daily as needed for diarrhea for up to 7 days., Starting Tue06/18/2022, Until Tue06/25/2022 at 2359, Normal 2. Primary hypertension Follow up if symptoms worsen or fail to improve. SUBJECTIVE/OBJECTIVE: DELPHINE Goldman comes in today complaining of a 2-week history of watery diarrhea, she thinks she may have eaten something at a family get together because that was shortly before the diarrhea started, she then ate some fruit salad that she thought may have been a problem again and it got worse. She says she is moving her bowels anywhere from 10-12 times a day, she has no significant cramping she has lots of rumbling in her abdomen and no blood in her stool. She says she does get some benefit from Imodium and she has been taking that and Pepto-Bismol. Blood pressure is elevated today we will recheck that prior to discharge. Review of Systems Constitutional: Negative for chills and fever. Gastrointestinal: Positive for diarrhea. Negative for blood in stool, nausea and vomiting. Vitals: 06/18/22 1056 06/18/22 1146 BP: (!) 138/91 (!) 143/88 Pulse: 83 84 Temp: 37.1 C (98.7 F) Weight: 273 lb 3.2 oz (124 kg) Height: 5' 3.75" (1.619 m) Physical Exam Vitals and nursing note reviewed. Constitutional: General: She is not in acute distress. Appearance: Normal appearance. HENT: Head: Normocephalic and atraumatic. Mouth/Throat: Mouth: Mucous membranes are moist. Pharynx: Oropharynx is clear. Eyes: Extraocular Movements: Extraocular movements intact. Pupils: Pupils are equal, round, and reactive to light. Cardiovascular: Rate and Rhythm: Normal rate and regular rhythm. Heart sounds: Normal heart sounds. No murmur heard. Pulmonary: Effort: Pulmonary effort is normal. Breath sounds: Normal breath sounds. Abdominal: General: Bowel sounds are increased. Tenderness: There is abdominal tenderness. Comments: Obese Musculoskeletal: Cervical back: Neck supple. Lymphadenopathy: Cervical: No cervical adenopathy. Neurological: Mental Status: She is alert. An electronic signature was used to authenticate this note. Casey Chang MD 06/18/2022 11:55 AM documented in this encounter [facility] 06-18-2022 Telephone encounter Note S: Patient spoke with [facility] nurse regarding violent diarrhea. B: Onset of symptoms sine 06/06/22. A: Had a family potlick since 06/06/22, states she has has awful diarrhea, took Immodium for 2 days and stopped and started again. Asking for testing, drinking water, light abd pain, no fever, foul odor, greesy BM floating, having more than 7 times a day, recent ATB use 1 month ago. R: Appointment scheduled, address given to the patient, instructed to bring phot ID, insurance info and medication list to the appointment. Advised to wear mask. Patient understands care advice. No further needs at this time. Patient instructed to call back with new or worsening symptoms. Reason for Disposition SEVERE diarrhea (e.g., 7 or more times / day more than normal) and age > 60 years Protocols used: [id number] 05-17-2022 Telephone encounter Note Reviewed chart. Refill appropriate. RX sent. [facility] 05-17-2022 Miscellaneous Notes Reviewed chart. Refill appropriate. RX sent. Prescription Request: Last medication check: 03/19/22 Last physical exam: 09/30/21 Next scheduled appointment: none CSA on file (date): na Last urine drug screen: na Last date of refill on this medication 12/31/21 3 inhalers with 1 refill documented in this encounter [facility] 05-17-2022 Telephone encounter Note Prescription Request: Last medication check: 03/19/22 Last physical exam: 09/30/21 Next scheduled appointment: none CSA on file (date): na Last urine drug screen: na Last date of refill on this medication 12/31/21 3 inhalers with 1 refill [facility] 05-10-2022 Instructions Maya Alcantar APRN.[facility] - 05/10/2022 2:22 PM EDT ACUTE SINUSITIS OVERVIEW Rhinosinusitis, or more commonly sinusitis, is the medical term for inflammation (swelling) of the lining of the sinuses and nose. The sinuses are the hollow areas within the facial bones that are connected to the nasal openings. The sinuses are lined with mucous membranes, similar to the inside of the nose. There are two main types of sinusitis: acute and chronic. Acute sinusitis is inflammation that lasts for less than four weeks while chronic sinusitis lasts for more than 12 weeks. Acute sinusitis is common, affecting approximately one million people per year in the [place]. ACUTE SINUSITIS CAUSES The most common cause of acute sinusitis is a viral infection associated with the common cold. Bacterial sinusitis occurs much less commonly, in only 0.5 to 2 percent of cases, usually as a complication of viral sinusitis. Because antibiotics are effective only against bacterial, and not viral, infections, most people do not need antibiotics for acute sinusitis. ACUTE SINUSITIS SYMPTOMS Symptoms of acute sinusitis include: Nasal congestion or blockage Thick, yellow to green discharge from the nose Pain in the teeth Pain or pressure in the face that is worse when bending forwards Other acute sinusitis symptoms can include fever (temperature greater than 100.4 F or 38 C), fatigue, cough, difficulty or inability to smell, ear pressure or fullness, headache, and bad breath. In most cases, these symptoms develop over the course of one day and begin to improve within seven to 10 days. DO I NEED TO BE EXAMINED? It is difficult to know if you have a viral or bacterial sinus infection initially. However, most people with a viral infection improve without treatment within seven to 10 days after symptoms begin. Bacterial sinusitis also sometimes improves without treatment, although it can also worsen and require treatment. If one or more of the following bothersome symptoms last more than seven days, an examination by a healthcare provider is recommended: Thick, yellow to green discharge from the nose Face or tooth pain, especially if it is only on one side Tenderness over the maxillary sinuses (located on the left and right side of the nose, inside the cheekbones) Symptoms that initially improve and then worsen When to seek immediate help -- If you have one or more of the following symptoms, you should seek medical attention immediately (even if symptoms have been present for less than seven days): High fever (>102.5 F or 39.2 C) Sudden, severe pain in the face or head Double vision or difficulty seeing Confusion or difficulty thinking clearly Swelling or redness around one or both eyes Stiff neck, shortness of breath ACUTE SINUSITIS TREATMENT Initial treatment of a sinus infection aims to relieve symptoms since almost everyone will improve within the first seven to 10 days. Experts recommend avoiding antibiotics during this time unless there is clear evidence of a severe bacterial infection. Initial treatment Pain relief -- Non-prescription pain medications, such as acetaminophen (eg, Tylenol ) or ibuprofen (eg, Motrin , Advil ) are recommended for pain. Nasal irrigation and saline sprays -- Rinsing the nose with a salt-water (saline) solution is called nasal irrigation or nasal lavage. Saline is also available in a standard nasal spray, although this is not as effective as using larger amounts of water in an irrigation. Nasal irrigation is particularly useful for treating drainage down the back of the throat, sneezing, nasal dryness, and congestion. The treatment helps by rinsing out allergens and irritants from the nose. Saline rinses also clean the nasal lining and can be used before applying sprays containing medications, to get a better effect from the medication. Nasal lavage with warmed saline can be performed as needed, once per day, or twice daily for increased symptoms. Nasal lavage carries few risks when performed correctly. Saline nasal sprays and irrigation kits can be purchased yehk-zpl-viabnyj. Saline mixes can also be purchased or patients can make their own solution. A variety of devices, including bulb syringes, Neti pots, and bottle sprayers, may be used to perform nasal lavage; instructions for nasal lavage are provided in the table. At least 200 mL (about 3/4 cup) of fluid is recommended for each nostril. Nasal decongestants -- Nasal decongestant sprays, including oxymetazoline (Afrin ) and phenylephrine (Isaias-synephrine ) can be used to temporarily treat congestion. However, these sprays should not be used for more than two to three days due to the risk of rebound congestion (when the nose is congested constantly unless the medication is used repeatedly). Other treatments -- Other treatments for congestion, such as oral antihistamines (such as diphenhydramine/Benadryl ) or zinc supplements are not proven to improve symptoms of sinusitis and can have unwanted side effects. Medications to thin secretions (such as guaifenesin) may help to clear mucus. Secondline treatment -- If symptoms have not improved in seven to ten days, you should arrange for medical evaluation. You may need further treatment. Nasal glucocorticoids -- Nasal glucocorticoids (steroids delivered by a nasal spray) can help to reduce swelling inside the nose, usually within two to three days. These drugs have few side effects and dramatically relieve symptoms in most people. There are a number of nasal glucocorticoids available by prescription. These drugs are all effective, but differ in how frequently they must be used and how much they cost. You may need to use a nasal decongestant for a few days before starting a nasal glucocorticoid to reduce nasal swelling; this will allow the nasal glucocorticoid to reach more areas of the nasal passages Do I need an antibiotic? -- If bothersome symptoms of sinusitis persist for 10 or more days, it is possible that you have bacterial sinusitis. The need for antibiotics depends upon the severity of your symptoms. Mild symptoms -- There are two possible treatment options if you have mild sinusitis symptoms: treat with antibiotics or continue to watch and wait for one week. Watching and waiting is a reasonable option because up to 75 percent of people with bacterial sinusitis improve within one month without antibiotics. During the watch and wait period, treatments to improve symptoms are recommended. If symptoms worsen or do not improve after watching and waiting, treatment with an antibiotic is usually recommended. Treatments to relieve symptoms are recommended while using antibiotics. Moderate or severe symptoms -- Most healthcare providers will prescribe an antibiotic for moderate to severe symptoms (temperature >38.3 C or 101 F and/or severe pain that interferes with usual activities). Treatments to relieve symptoms are also recommended during antibiotic treatment. One of the least expensive and most effective antibiotics for sinusitis is amoxicillin. An alternate antibiotic will be prescribed if you are allergic to penicillin. Regardless of which antibiotic is prescribed, it is important to follow the dosing instructions carefully and to finish the entire course of treatment. Taking the medication less often than prescribed or stopping the medication early can lead to complications, such as a recurrent infection. What if I do not improve with treatment? -- If you do not improve or worsen after a course of antibiotics, you should be re-examined. In some cases, symptoms of sinusitis improve but then recur. This is usually because the infection was not completely eliminated by the antibiotic. An alternate antibiotic, extended antibiotic treatment, and/or further testing may be recommended, depending upon your individual situation. documented in this encounter [facility] 05-10-2022 History of Present illness Narrative Telemedicine Evaluation for COVID-19 Infection [facility] was used for evaluation of this patient. Location of patient: [place] I have communicated my name and active licensure. The patient's identity and physical location were verified at the time of this visit. Either the patient or their legal treasury representative has been informed of the risks and benefits of -- and alternatives to -- treatment through a remote evaluation and consents to proceed with the evaluation remotely. SUBJECTIVE Dima Nice is a 61 year old female who presents with POSITIVE COVID TEST 05/01/2022 Day 11 of COVID COVID SXS STARTED:04/29/2022 SXS INCLUDE:COUGH W/ PRODUCTION , FATIGUE, SLEEPY, FEVER RESOLVED 05/02-05/03, A FEW TIMES OF SWEATS. SINUS DRAINAGE IS YELLOW-GREEN OTC meds/remedies that patient has tried: TOOK MOLNIPUVIR, FEW DOSES OF DAYQUIL & NYQUIL, IBUPROFEN NO NASAL SPRAYS COVID test: YES COVID VACCINE YES High risk category assessment OVER 60 SMOKER Exposures: Sick contacts? No Contact with anyone confirmed or probable COVID-19 infection in the last 14 days? No Family with confirmed COVID-19 infection? No Traveled or resided in an area with sustained or ongoing community transmission of COVID-19? No THINKS MAYBE EXPOSED AT A BAND CONCERT OBJECTIVE VIDEO EXAM (if available) GENERAL APPEARANCE Alert, oriented, pleasant, in NAD :Yes Ill appearing :No Lethargic appearing :No HEENT: Eyes: Sclera clear :Yes Conjunctiva without erythema :Yes Frontal sinus tenderness by self palpation;No Maxillary sinus tenderness by self palpation :Yes Ears: Tragus / outer ear tenderness by self palpation :Yes Tender cervical adenopathy by self palpation :Yes Oropharynx: normal, no erythema PULMONARY Respiratory distress :No Coughing noted: WET RHAPSY COUGH Audible wheezing noted: SOME WHEEZY/ WET BREATHING HEARD LABS: No results found for: GLUC, K, NA, CHLOR, CO2, CREAT, BUN, ANION, CA, TPROT, ALB, TBILI, ALKPHOS, AST, ALT No results found for: GFR ASSESSMENT/PLAN ASSESSMENT/PLAN: 1. COVID-19 virus infection - ICD9: 079.89, ICD10: U07.1 (primary diagnosis) DAY 11-12 , COMPLETED ORAL ANTIVIRALS 2. Acute cough - ICD9: 786.2, ICD10: R05.1 - IPRATROPIUM BROMIDE 21 MCG (0.03 %) NASAL SPRAY - BENZONATATE 100 MG CAPSULE - CORICIDIN HBP DAY-NIGHT 10-200 MG(DAY)/2-15-500 MG(NT) TABLET,CAPSULE 3. Bacterial sinusitis - ICD9: 473.9, 041.9, ICD10: J32.9, B96.89 - Will begin treatment with as per antibiotic as written, see orders - The patient should also be given OTC cough and cold meds as needed and nasal saline gtts and suction prn for the first 5-7 days of treatment. - Supportive care with plenty of fluids, rest, and analgesia prn. - Follow up in 3-5 days if symptoms persist or worsen. - >10 DAYS OF SXS, PURULENT DRAINAGE, COUGH, FACIAL PAIN , FEVER NO RESOLVED - AMOXICILLIN 875 MG-POTASSIUM CLAVULANATE 125 MG TABLET - IPRATROPIUM BROMIDE 21 MCG (0.03 %) NASAL SPRAY - CORICIDIN HBP DAY-NIGHT 10-200 MG(DAY)/2-15-500 MG(NT) TABLET,CAPSULE Orders Placed This Encounter amoxicillin-clavulanic acid (AUGMENTIN) 875-125 mg per tablet Sig: Take 1 tablet by mouth twice daily for 5 days. Dispense: 10 tablet Refill: 0 Ipratropium [place] (ATROVENT) 21 mcg (0.03 %) nasal spray Sig: Use 2 Sprays in the nose every 12 hours for 10 days. Dispense: 4 mL Refill: 0 benzonatate (TESSALON PERLES) 100 mg capsule Sig: Take 1-2 capsules by mouth three times daily as needed for cough for up to 10 days. Dispense: 40 capsule Refill: 0 DM-GG/ngzatlv-IX-rrfuqhfsbvffi (CORICIDIN HBP DAY-NIGHT) 10-200 mg(dy)/2 -15-500 mg(nt) TCSq Sig: Per box instructions - Reviewed OTC medications and supplements to help w/ sxs - Encouraged good hydration, handwashing and use of humidified air - Encouraged REST - Discussed symptom monitoring and supportive care - Red flag symptoms requiring follow up discussed - All questions answered Maya Alcantar CNP If you let us know who your primary care provider is, we will send them a notification of today's visit through our electronic medical records system. Since not all providers have access to our notifications, we strongly encourage you to share the following record of today's visit with your primary care provider at your next visit. This will help in providing you the best care. If you do not have an established Primary Care physician and would like to continue care with a [facility] Primary Care physician, please ask your provider to place a "Establish Primary Care" order. Use [facility] to manage your care, wherever you are, 06/09, on your mobile device or computer. [facility] connects you to [place] [facility] so you can access all your health information in one place and also schedule and request virtual appointments with primary care providers. documented in this encounter [facility] 05-02-2022 Instructions Marzena Phelan APRN.CNP - 05/02/2022 9:26 AM EDT Resources for Managing Anxiety During COVID Crisis https://www.[employer].Displair https://www.cdc.gov/coronavirus/-ncov/prepare/eyitkfpn-jcobet-fl xiety.html https://coronavirus.[place].gov/wps/p ortal/gov/covid-19/home/resources/ hbtsrugoi-vne-uwvzsq-oypnbi-nhqk-n hl-pkche-93-pandemic www.[employer]/us/blog/ z-hdbmx-keunuocpolzc//how-ma xjku-btyqbudmjdx-rxrdrbh https://www.[employer]/us /blog/rja-dywir-rywkyes//10- elfy-brytfuxil-qvqc-positivity-now https://www.[employer]/us /blog/experimentations//7-in bomradwqw-jrcjvzblxfo-dlnmjvumlg-a dversity Beginning Home Isolation Isolation is used to separate people infected with SARS-CoV-2, the virus that causes COVID-19, from people who are not infected. People who are in isolation should stay home until it s safe for them to be around others. In the home, anyone sick or infected should separate themselves from others by staying in a specific sick room or area and using a separate bathroom (if available). Isolation or Quarantine: What's the difference? Quarantine keeps someone who might have been exposed to the virus away from others. Isolation keeps someone who is infected with the virus away from others, even in their home. Who needs to isolate People who have COVID-19 People who have symptoms of COVID-19 and are able to recover at home People who have no symptoms (are asymptomatic) but have tested positive for infection with SARS-CoV-2 Steps to take Stay home except to get medical care Monitor your symptoms. Stay in a separate room from other household members, if possible Use a separate bathroom, if possible Avoid contact with other members of the household and pets Don t share personal household items, like cups, towels, and utensils Wear a mask when around other people, if you are able to When to seek emergency medical attention Look for emergency warning signs* for COVID-19. If someone is showing any of these signs, seek emergency medical care immediately: Trouble breathing Persistent pain or pressure in the chest New confusion Inability to wake or stay awake Bluish lips or face *This list is not all possible symptoms. Please call your medical provider for any other symptoms that are severe or concerning to you. Call 911 or call ahead to your local emergency facility: Notify the paper coating machine operator that you are seeking care for someone who has or may have COVID-19. Ending Home Isolation - When you can be around others after you had or likely had COVID-19 When you can be around others after you had or likely had COVID-19 If You Test Positive for COVID-19 (Isolation) Everyone, regardless of vaccination status: Stay home for 5 days. Note: Day 0 is your first day of symptoms or the date of collection of a positive viral test if no symptoms. Day 1 is the first full day after symptoms developed or test specimen was collected. If you have no symptoms or your symptoms are resolving after 5 days, you can leave your house. Continue to wear a mask around others for 5 additional days. If you have a fever, continue to stay home until your fever resolves, even if it is longer than 5 days. If You Were Exposed to Someone with COVID-19 (Quarantine) If you: 1. Have been boosted OR 2. Completed the primary series of Pfizer or Moderna vaccine within the last 6 months OR 3. Completed the primary series of J&J vaccine within the last 2 months THEN: 1. Wear a mask around others for 10 days. 2. Test on day 5, if possible. If you develop symptoms get a test and stay home. If You Were Exposed to Someone with COVID-19 (Quarantine) If you: 1. Completed the primary series of Pfizer or Moderna vaccine over 6 months ago and are not boosted OR 2. Completed the primary series of J&J over 2 months ago and are not boosted OR 3. Are unvaccinated THEN: 1. Stay home for 5 days. After that continue to wear a mask around others for 5 additional days. 2. If you can't quarantine you must wear a mask for 10 days. 3. Test on day 5 if possible. If you develop symptoms get a test and stay home. I had COVID-19 or I tested positive for COVID-19 and I have a weakened immune system If you have a weakened immune system (immunocompromised) due to a health condition or medication, you might need to stay home and isolate longer than 10 days. Talk to your healthcare provider for more information. Your doctor may work with an infectious disease expert at your local health department to determine when you can be around others. How to Manage Common Symptoms Associated with COVID for Adults Fever- Fever is a temperature over 100.4 F and can occur when the body is fighting an infection. To help treat a fever: Drink plenty of fluids and stay well hydrated. Eat small amounts of easy to digest food. Rest. Your body needs rest to recover, but getting up and moving around the house frequently is a good idea. You should try to continue doing your normal daily activities (bathing, toileting, grooming, cooking), though you will probably feel tired, and need to rest often. Avoid any heavy activity or exercise, as this will increase your body temperature. Dress in light clothing and stay covered in a light sheet. Keep the room temperature cool. Take a slightly warm (not cold or cool) bath, or apply damp washcloths to the forehead and wrists. Cough- Cough is a common symptom associated with COVID and can be bothersome. To help treat a cough: Stay well hydrated. Try warm water or tea with lemon and/or honey to help soothe the cough. Use a humidifier to add moisture to the air. Try a product with menthol, like a cough drop or a rub for your chest such as Vicks, which can help reduce cough. Try cough drops. Avoid smoking and other strong odors or perfumes. Try breathing exercises to keep your lungs open and clear. Take a big deep breath through your nose and hold for 5 seconds before slowly releasing. Repeat frequently, while you are awake. Congestion- Runny nose or nasal congestion can occur with COVID. Treatment can help relieve symptoms: Try OTC nasal saline spray, or nasal saline rinse to relieve mucus congestion. Nasal strips can help keep nasal passages open, to increase airflow. Elevating your head with an extra pillow in bed can help reduce congestion. Using a humidifier can increase moisture in the air, and make breathing easier. Sore Throat- Another common symptom with COVID, can be managed at home by: Stay well hydrated. Gargle with salt water - mix teaspoon salt with 1 cup of warm water and gargle. This helps to loosen mucus in the back of the throat and may reduce discomfort. Try ice chips, popsicles or lozenges to soothe the throat. Nausea/Vomiting/Diarrhea- These are common symptoms, and staying hydrated is most important. If you are nauseous or vomiting, start with small sips of water every 10-15 minutes and increase as tolerated. You can try sucking an ice cube too. If tolerating, you can try pedialyte or Gatorade, or flat sprite or russ-emil. Start slowly and increase as you are able to. Instead of meals, try smaller, more frequent snacks. Try eating bland foods like crackers, toast, rice, and applesauce. Avoid spicy, greasy or fried foods and dairy containing foods. Even if you aren't feeling hungry due to lack of smell or taste, it is important to try to take in some food when you are able. After drinking and eating, rest in an upright position for up to two hours as needed to help decrease nauseous feelings. Try closing your eyes, avoid moving and watching TV. Avoid strong odors that can make you feel more nauseated. When to seek emergency medical attention Look for emergency warning signs for COVID-19. If having any of these symptoms, seek emergency medical care immediately: Trouble breathing Persistent pain or pressure in the chest New confusion Inability to wake or stay awake Bluish lips or face *This list is not all possible symptoms. Please call your medical provider for any other symptoms that are severe or concerning to you. Fact Sheet for Patients And Caregivers Emergency Use Authorization (EUA) Of LAGEVRIO (molnupiravir) capsules For Coronavirus Disease 2019 (COVID-19) What is the most important information I should know about LAGEVRIO? LAGEVRIO may cause serious side effects, including: LAGEVRIO may cause harm to your unborn baby. It is not known if LAGEVRIO will harm your baby if you take LAGEVRIO during . LAGEVRIO is not recommended for use in . LAGEVRIO has not been studied in . LAGEVRIO was studied in animals only. When LAGEVRIO was given to animals, LAGEVRIO caused harm to their unborn babies. You and your healthcare provider may decide that you should take LAGEVRIO during if there are no other COVID-19 treatment options approved or authorized by the FDA that are accessible or clinically appropriate for you. If you and your healthcare provider decide that you should take LAGEVRIO during , you and your healthcare provider should discuss the known and potential benefits and the potential risks of taking LAGEVRIO during . For individuals who are able to become : You should use a reliable method of control (contraception) consistently and correctly during treatment with LAGEVRIO and for 4 days after the last dose of LAGEVRIO. Talk to your healthcare provider about reliable control methods. Before starting treatment with LAGEVRIO your healthcare provider may do a test to see if you are before starting treatment with LAGEVRIO. Tell your healthcare provider right away if you become or think you may be during treatment with LAGEVRIO. Registry: There is a registry for individuals who take LAGEVRIO during . The purpose of this program is to collect information about the health of you and your baby. If you are or become during treatment with LAGEVRIO, you are encouraged to report your use of LAGEVRIO during to this registry at https://covid-pr.AdTaily.com.Displair or . For individuals who are sexually active with partners who are able to become : It is not known if LAGEVRIO can affect sperm. While the risk is regarded as low, animal studies to fully assess the potential for LAGEVRIO to affect the babies of males treated with LAGEVRIO have not been completed. A reliable method of control (contraception) should be used consistently and correctly during treatment with LAGEVRIO and for at least 3 months after the last dose. The risk to sperm beyond 3 months is not known. Studies to understand the risk to sperm beyond 3 months are ongoing. Talk to your healthcare provider about reliable control methods. Talk to your healthcare provider if you have questions or concerns about how LAGEVRIO may affect sperm. You are being given this fact sheet because your healthcare provider believes it is necessary to provide you with LAGEVRIO for the treatment of adults with a current diagnosis of mild-tomoderate coronavirus disease 2019 (COVID-19) who are at high risk for progression to severe COVID-19, including hospitalization or , and for whom other COVID-19 treatment options approved or authorized by the FDA are not accessible or clinically appropriate. The [place]. Food and Drug Administration (FDA) has issued an Emergency Use Authorization (EUA) to make LAGEVRIO available during the COVID-19 pandemic (for more details about an EUA please see What is an Emergency Use Authorization? at the end of this document). LAGEVRIO is not an FDA-approved medicine in the [place]. Read this Fact Sheet for information about LAGEVRIO. Talk to your healthcare provider about your options if you have any questions. It is your choice to take LAGEVRIO. What is COVID-19? COVID-19 is caused by a virus called a coronavirus. You can get COVID-19 through close contact with another person who has the virus. COVID-19 illnesses have ranged from very gcvw-tm-cxakxs, including illness resulting in . While information so far suggests that most COVID-19 illness is mild, serious illness can happen and may cause some of your other medical conditions to become worse. Older people and people of all ages with severe, long lasting (chronic) medical conditions like heart disease, lung disease and diabetes, for example seem to be at higher risk of being hospitalized for COVID-19. What is LAGEVRIO? LAGEVRIO is an investigational medicine used to treat adults with a current diagnosis of mild to moderate COVID-19: who are at high risk for progression to severe COVID-19 including hospitalization or , and for whom other COVID-19 treatment options approved or authorized by the FDA are not accessible or clinically appropriate. The FDA has authorized the emergency use of LAGEVRIO for the treatment of mild-tomoderate COVID-19 in adults under an EUA. For more information on EUA, see the What is an Emergency Use Authorization (EUA)? section at the end of this Fact Sheet. LAGEVRIO is not authorized: for use in people less than 18 years of age. for prevention of COVID-19. for people needing hospitalization for COVID-19. for use for longer than 5 consecutive days. What should I tell my healthcare provider before I take LAGEVRIO? Tell your healthcare provider if you: have any allergies are or plan to breastfeed have any serious illnesses Take any medicines including prescription, hdki-hcu-lnxdcqs medicines, vitamins, and herbal products. How do I take LAGEVRIO? Take LAGEVRIO exactly as your healthcare provider tells you to take it. Take 4 capsules of LAGEVRIO every 12 hours (for example, at 8 am and at 8 pm) Take LAGEVRIO for 5 days. It is important that you complete the full 5 days of treatment with LAGEVRIO. Do not stop taking LAGEVRIO before you complete the full 5 days of treatment, even if you feel better. Take LAGEVRIO with or without food. You should stay in isolation for as long as your healthcare provider tells you to. Talk to your healthcare provider if you are not sure about how to properly isolate while you have COVID-19. Swallow LAGEVRIO capsules whole. Do not open, break, or crush the capsules. If you cannot swallow capsules whole, tell your healthcare provider. If your healthcare provider prescribes LAGEVRIO and tells you to take or give a dose through a nasogastric (NG) or orogastric (OG) tube, follow the instructions below: How to take or give a dose of LAGEVRIO through a nasogastric (NG) or orogastric (OG) feeding tube. You must have an NG or OG that is size 12 Hebrew (FR) or larger. If you miss a dose of LAGEVRIO: If it has been less than 10 hours since the missed dose, take it as soon as you remember. If it has been more than 10 hours since the missed dose, skip the missed dose and take your dose at the next scheduled time. Do not double the dose of LAGEVRIO to make up for a missed dose. How to take or give a dose of LAGEVRIO through a nasogastric (NG) or orogastric (OG) feeding tube: Wash your hands well with soap and water. Gather the supplies you will need to take or give the prescribed dose of LAGEVRIO. 4 LAGEVRIO capsules 1 liquid measuring cup with mL markings to measure 40 mL of room temperature water 1 clean container with a lid 1 catheter tip syringe. Your healthcare provider should tell you what size catheter tip syringe you will need to take or give a dose of LAGEVRIO. Place the needed supplies on a clean work surface. Follow your healthcare provider s instructions on how to flush the NG or OG feeding tube. Flush the NG or OG feeding tube with 5 mL of water before taking or giving a dose of LAGEVRIO. Carefully open 4 LAGEVRIO capsules, one at a time, and empty the contents into a clean container. Use the liquid measuring cup to measure 40 mL of room temperature water and add to the container containing the capsule contents. Place the lid on the container. Shake to mix the capsule contents and water well for 3 minutes. The capsule contents may not dissolve completely. Remove the lid from the container and draw up all the LAGEVRIO and water mixture into a catheter tip syringe. Give all of the mixture right away through the NG or OG feeding tube. Do not keep the mixture for future use. If any capsule contents are left in the container: Add 10 mL of water to the container, and mix to loosen any capsule contents that are left in the container. Use the catheter tip syringe to draw up all of the mixture in the container. Give the mixture through the NG or OG feeding tube. Repeat this process as needed until you no longer see any capsule contents left in the container or catheter tip syringe. Use the same catheter tip syringe to flush the NG or OG feeding tube 2 times with 5 mL of water (10mL total). Rinse the container, lid and catheter tip syringe well with clean water after use. Place on a clean paper towel until next use. What are the important possible side effects of LAGEVRIO? See, What is the most important information I should know about LAGEVRIO? Allergic Reactions. Allergic reactions can happen in people taking LAGEVRIO, even after only 1 dose. Stop taking LAGEVRIO and call your healthcare provider right away if you get any of the following symptoms of an allergic reaction: hives rapid heartbeat trouble swallowing or breathing swelling of the mouth, lips, or face throat tightness hoarseness skin rash The most common side effects of LAGEVRIO are: diarrhea nausea dizziness These are not all the possible side effects of LAGEVRIO. Not many people have taken LAGEVRIO. Serious and unexpected side effects may happen. This medicine is still being studied, so it is possible that all of the risks are not known at this time. What other treatment choices are there? Veklury (remdesivir) is FDA-approved as an intravenous (IV) infusion for the treatment of mildto-moderate COVID-19 in certain adults and children. Talk with your doctor to see if Veklury is appropriate for you. Like LAGEVRIO, FDA may also allow for the emergency use of other medicines to treat people with COVID-19. Go to https://www.fda.gov/emergency-prep gfwxufij-qjo-sjfyqfeu/mcm-legalreg xdoyads-cuy-gbxzit-framework/emerg xkff-joc-svwnvauhinvtl for more information. It is your choice to be treated or not to be treated with LAGEVRIO. Should you decide not to take it, it will not change your standard medical care. What if I am ? is not recommended during treatment with LAGEVRIO and for 4 days after the last dose of LAGEVRIO. If you are or plan to breastfeed, talk to your healthcare provider about your options and specific situation before taking LAGEVRIO. How do I report side effects with LAGEVRIO? Contact your healthcare provider if you have any side effects that bother you or do not go away. Report side effects to FDA MedWatch at www.fda.gov/medwatch or call 5-743-XCF-4103 ([phone]). How should I store LAGEVRIO? Store LAGEVRIO capsules at room temperature between 68 F to 77 F (20 C to 25 C). Keep LAGEVRIO and all medicines out of the reach of children. How can I learn more about COVID-19? Ask your healthcare provider. Visit www.cdc.gov/COVID19 Contact your local or state public health department. Call [employer] at (toll free in the [place] Visit www.Jobydu.Displair What Is an Emergency Use Authorization (EUA)? The [place] FDA has made LAGEVRIO available under an emergency access mechanism called an Emergency Use Authorization (EUA) The EUA is supported by a [place] of Health and Human Service (HHS) declaration that circumstances exist to justify emergency use of drugs and biological products during the COVID-19 pandemic. LAGEVRIO for the treatment of adults with a current diagnosis of ldiv-kf-ysdecixe COVID-19 who are at high risk for progression to severe COVID-19, including hospitalization or , and for whom alternative COVID-19 treatment options approved or authorized by FDA are not accessible or clinically appropriate, has not undergone the same type of review as an FDAapproved product. In issuing an EUA under the COVID-19 public health emergency, the FDA has determined, among other things, that based on the total amount of scientific evidence available including data from adequate and well-controlled clinical trials, if available, it is reasonable to believe that the product may be effective for diagnosing, treating, or preventing COVID-19, or a serious or life-threatening disease or condition caused by COVID-19; that the known and potential benefits of the product, when used to diagnose, treat, or prevent such disease or condition, outweigh the known and potential risks of such product; and that there are no adequate, approved, and available alternatives. All of these criteria must be met to allow for the product to be used in the treatment of patients during the COVID-19 pandemic. The EUA for LAGEVRIO is in effect for the duration of the COVID-19 declaration justifying emergency use of LAGEVRIO, unless terminated or revoked (after which LAGEVRIO may no longer be used under the EUA). Reyna. for: [employer] [address] For patent information: www.Tracked.com/research/patent Copyright [employer] [facility] and its affiliates. All rights reserved. [id number] Revised: March 2022 documented in this encounter [facility] 05-02-2022 History of Present illness Narrative Telemedicine Evaluation for COVID-19 Infection Alternative video platform was used for evaluation of this patient. Location of patient: [place] is a 61 year old female who presents with 2 days of symptoms that are stable. Symptoms include: Fever (?100.4F): Yes or Chills: No Cough: Yes Shortness of breath: No or Difficulty breathing: No Fatigue: Yes Muscle aches: Yes Headache: Yes New loss of smell or taste: No Sore throat: Yes Nasal congestion: Yes or Rhinorrhea: No Nausea: No or Vomiting: No Diarrhea: No OTC meds/remedies that patient has tried: acetaminophen and NSAIDs. High risk category assessment On immunosuppressive therapy Exposures: Sick contacts? No Family or close contacts with confirmed/probable COVID-19 in last 14 days? No She reports that she has been smoking cigarettes. She started smoking about 48 years ago. She has been smoking an average of 1 pack per day. She has never used smokeless tobacco. OBJECTIVE VIDEO EXAM (if available) GENERAL: well appearing, alert, in no acute distress HEENT: no conjunctival injection, pupils equal, moist mucous membranes, oropharynx clear without erythema, sinuses non-tender to self-palpation, and no cervical adenopathy by self-palpation PULMONARY: breathing comfortably on room air , no coughing noted, and no wheezing noted ASSESSMENT/PLAN (U07.1) Positive self-administered antigen test for COVID-19 (primary encounter diagnosis) - Discussed symptom monitoring and supportive care - Red flag symptoms requiring follow up discussed Molnupiravir Eligibility and Patient Discussion [facility] Formulary Restriction Criteria: Adult outpatients 18 years and older with ALL of the following: Pt. Not eligible for Paxlovid due to Medication interactions. [x] Patient has positive SARS-COV-2 viral test (PCR or antigen test) during current illness [x] Patient has symptoms for 5 days or less [x] Not requiring hospitalization at any time for management of COVID-19 [x] Not requiring supplemental oxygen or a change in baseline supplemental oxygen [x] Not utilized for pre-exposure or post-exposure prophylaxis for prevention of COVID-19 [x] Patient is not or lactating [x] Meeting at least one of the criteria for high risk of progression to severe COVID-19: [] Age over 65 years [] Cancer [] Chronic kidney disease [] Chronic liver disease [] Chronic lung diseases, including cystic fibrosis [] Dementia or other neurological conditions [] Diabetes (type 1 or type 2) [] Disabilities, including Down syndrome and neurodevelopmental disorders [] Heart conditions [] HIV infection [x] Immunocompromised state [] Mental health conditions [] Medical related technological dependence (tracheostomy, gastrostomy, or positive pressure ventilation (not related to COVID) [] Overweight and obesity (BMI greater or equal to 25 for adults) [] Physical inactivity [] Sickle cell disease or thalassemia [] Smoking, current or former [] Solid organ or blood stem cell transplant [] Stroke or cerebrovascular disease [] Substance use disorders [] Tuberculosis [] People from racial and ethnic minority groups Criteria above are met: Yes Date of Positive Test:05/02/22 Date of Symptom Onset: 04/30/22 Patient received COVID vaccine: Yes / status reviewed: Females: [x] Patient is not currently and there is no possibility the patient could be (select one of the following): [] test does not need to be confirmed in patients who have undergone permanent sterilization, are currently using an intrauterine system or contraceptive implant, or in whom is not possible. [] Patients not meeting conditions above: assess whether the patient is based on the first day of the last menstrual period in individuals who have regular menstrual cycles, is using reliable method of contraception correctly and consistently or have had a negative test [] A test is recommended if the individual has irregular menstrual cycles, is unsure of the first day of the last menstrual period or is not using effective contraception correctly and consistently [] Patient is not currently . is not recommended during treatment and for four days after final dose of molnupiravir. [] Females have been advised to use a reliable method of contraception correctly and consistently for the duration of treatment and for four days after the last dose of molnupiravir Males: [] Sexually active male with partner(s) of childbearing potential has been advised to use a reliable method of contraception correctly and consistently for intercourse for the duration of treatment and for three months after the last dose of molnupiravir I have discussed the use of the investigational therapeutic, molnupiravir, for the treatment of mild to moderate COVID-19 and its use under Emergency Use Authorization with the patient. The patient was informed that molnupiravir is not an FDA approved drug and that it is authorized for use under this Emergency Use Authorization. The patient was also informed of the significant known benefits and potential risks of molnupiravir, and the extent to which such potential risks and benefits are unknown. The patient was informed that there is mandatory reporting of all medication errors and serious adverse events potentially related to molnupiravir treatment within 7 calendar days from the onset of the event and that events up to 28 days after completion of therapy need to be reported. The discussion included alternatives to receiving molnupiravir, including clinical trials, and potential the risks and benefits of those alternatives. The patient was provided electronically with the "Fact Sheet for Patients, Parents and Caregivers". The patient was also instructed that in addition to the treatment with molnupiravir, he/she should continue to self-isolate and use infection control measures (e.g., wear mask, isolate, social distance, avoid sharing personal items, clean and disinfect "high touch" surfaces, and frequent handwashing) according to CDC guidelines. The patient stated understanding and gave verbal consent to proceeding with molnupiravir treatment. Marzena Phelan APRN.CNP May 02, 2022 9:27 AM I have communicated my name and active licensure. The patient's identity and physical location were verified at the time of this visit. Either the patient or their legal treasury representative has been informed of the risks and benefits of -- and alternatives to -- treatment through a remote evaluation and consents to proceed with the evaluation remotely. This patient encounter involved the screening or treatment of novel coronavirus infection (COVID-19). documented in this encounter [facility] 04-01-2022 Telephone encounter Note Prescription Request: Last medication check: 03/19/22 Last physical exam: 09/30/21 Next scheduled appointment: none CSA on file (date): na Last urine drug screen: na Last date of refill on this medication 12/31/21 30 day 1 refill Looks like pt takes 60mg every day according to chart [facility] 04-01-2022 Miscellaneous Notes Prescription Request: Last medication check: 03/19/22 Last physical exam: 09/30/21 Next scheduled appointment: none CSA on file (date): na Last urine drug screen: na Last date of refill on this medication 12/31/21 30 day 1 refill Looks like pt takes 60mg every day according to chart documented in this encounter [facility] 03-19-2022 Evaluation + Plan note Associated Problem(s): Hypertension Blood pressure was initially elevated, recheck was good continue lisinopril 60 mg daily [facility] 03-19-2022 Miscellaneous Notes Associated Problem(s): Hypertension Blood pressure was initially elevated, recheck was good continue lisinopril 60 mg daily Associated Problem(s): Depression Stable, continue Celexa 40 mg daily Associated Problem(s): Anxiety Uncontrolled but improved with her lorazepam, continue Celexa 40 mg daily and lorazepam 0.5 mg twice a day as needed. documented in this encounter [facility] 03-19-2022 Evaluation + Plan note Associated Problem(s): Depression Stable, continue Celexa 40 mg daily [facility] 03-19-2022 Evaluation + Plan note Associated Problem(s): Anxiety Uncontrolled but improved with her lorazepam, continue Celexa 40 mg daily and lorazepam 0.5 mg twice a day as needed. [facility] 03-19-2022 History of Present illness Narrative Images from the original note were not included. 03/19/2022 Dima Nice (: 1960) is a 61 y.o. female , Established patient, here for evaluation of the following chief complaint(s): Depression, Anxiety, and Follow-up (2 week ) ASSESSMENT/PLAN: 1. Anxiety Assessment & Plan: Uncontrolled but improved with her lorazepam, continue Celexa 40 mg daily and lorazepam 0.5 mg twice a day as needed. 2. Major depressive disorder in partial remission, unspecified whether recurrent (HCC) Assessment & Plan: Stable, continue Celexa 40 mg daily 3. Primary hypertension Assessment & Plan: Blood pressure was initially elevated, recheck was good continue lisinopril 60 mg daily Follow up in about 4 weeks (around 04/16/2022). SUBJECTIVE/OBJECTIVE: DELPHINE Goldman comes in today for follow-up on her anxiety and depression she says that the lorazepam does help when she takes it, she only uses it when she needs it but she is under a lot of stress right now with her who was diagnosed with stage IV cancer and all the running around the need to do and other stressors. Her blood pressure again is elevated today we will recheck that prior to discharge we increased her lisinopril to 60 mg a day over the phone when she called in blood pressure numbers. Review of Systems Constitutional: Negative for chills and fever. Respiratory: Positive for shortness of breath. Cardiovascular: Negative for chest pain and palpitations. Musculoskeletal: Negative for neck pain. Neurological: Negative for headaches. Psychiatric/Behavioral: Negative for dysphoric mood, self-injury and suicidal ideas. The patient is nervous/anxious. Vitals: 03/19/22 0944 03/19/22 1009 BP: (!) 172/83 136/84 Pulse: 84 81 Weight: 285 lb 6.4 oz (129 kg) Height: 5' 3.75" (1.619 m) Physical Exam An electronic signature was used to authenticate this note. Casey Chang MD 03/19/2022 10:50 AM Answers submitted by the patient for this visit: High Blood Pressure Questionnaire (Submitted on 03/18/2022) Chief Complaint: Hypertension Chronicity: chronic Onset: more than 1 year ago Progression since onset: gradually worsening anxiety: Yes blurred vision: No malaise/fatigue: No orthopnea: No peripheral edema: No PND: No sweats: No Agents associated with hypertension: no associated agents CAD risks: dyslipidemia, obesity, sedentary lifestyle, smoking/tobacco exposure, stress Compliance problems: psychosocial issues documented in this encounter [facility] 03-05-2022 Evaluation + Plan note Associated Problem(s): Anxiety Currently active, will add lorazepam 0.5 mg twice a day as needed OARRS report done, no inconsistencies. [facility] 03-05-2022 Miscellaneous Notes Associated Problem(s): Anxiety Currently active, will add lorazepam 0.5 mg twice a day as needed OARRS report done, no inconsistencies. Associated Problem(s): Depression Currently active, will increase her Celexa to 40 mg daily documented in this encounter [facility] 03-05-2022 Evaluation + Plan note Associated Problem(s): Depression Currently active, will increase her Celexa to 40 mg daily [facility] 03-05-2022 History of Present illness Narrative Patient verified by last name and date of . Patient wants a manager body in the room during during the visit. no Wire Bender na Images from the original note were not included. 03/05/2022 Dima Nice (: 1960) is a 61 y.o. female , Established patient, here for evaluation of the following chief complaint(s): Anxiety and Health Maintenance (Declines mammogram/Declines colonsocopy) ASSESSMENT/PLAN: 1. Moderate episode of recurrent major depressive disorder (HCC) Assessment & Plan: Currently active, will increase her Celexa to 40 mg daily 2. Anxiety Assessment & Plan: Currently active, will add lorazepam 0.5 mg twice a day as needed OARRS report done, no inconsistencies. Orders: - LORazepam (Ativan) 0.5 MG tablet; Take 1 tablet (0.5 mg) by mouth 2 times daily as needed for anxiety., Starting 03/05/2022, Until 04/04/2022 at 2359, Normal Follow up in about 2 weeks (around 03/19/2022). SUBJECTIVE/OBJECTIVE: DELPHINE Aldridge comes in today currently under a lot of stress her was just diagnosed with stage IV cancer they are not sure what the primary is that she says at 7 a lot of lymph nodes in his esophagus in other locations. Does have a history of bladder cancer. Also has a son and syndrome and she has a grandson who got himself into some legal issues with domestic violence. She says yesterday her stress got to her and she walked out of her job and now she has Apologized to her employer and explained what is going on Review of Systems Psychiatric/Behavioral: Positive for dysphoric mood and sleep disturbance. Negative for self-injury and suicidal ideas. The patient is nervous/anxious. Vitals: 03/05/22 0728 BP: (!) 179/92 Pulse: 89 Weight: 285 lb 9.6 oz (130 kg) Height: 5' 3.75" (1.619 m) Physical Exam Vitals and nursing note reviewed. Constitutional: General: She is not in acute distress. Appearance: Normal appearance. She is obese. Cardiovascular: Rate and Rhythm: Normal rate and regular rhythm. Heart sounds: Normal heart sounds. No murmur heard. Pulmonary: Effort: Pulmonary effort is normal. Breath sounds: Normal breath sounds. Lymphadenopathy: Cervical: No cervical adenopathy. Neurological: Mental Status: She is alert. Psychiatric: Attention and Perception: Attention normal. Mood and Affect: Mood is anxious and depressed. Affect is tearful. An electronic signature was used to authenticate this note. Casey Chang MD 03/05/2022 7:54 AM documented in this encounter [facility] [employer] 03-04-2022 Telephone encounter Note Patient notified [facility] [employer] 03-04-2022 Miscellaneous Notes Patient notified Okay, will see patient tomorrow to discuss options, if we prescribe anything controlled we will have to have documentation in the chart. We would not start that without having an appointment. The patient is calling the Virtual visit with multiple life issues - she has a grandson in shelter and her was diagnosed with cancer. Her son is a drug addict. She is frantic and feeling out of control. She is asking for medication to get her over the hump. Appointment made We have never given her this medication last I see in the old epic was [address] Palomino. Name of caller: Dima Contact phone number: [phone] Relationship to Patient: patient Provider: Bernardo Practice: [facility] Chief Complaint/Reason for Call: Pt is asking for a script of ativan to be sent to the local pharmacy. Pt states they are under a lot of stress. Best time of day caller can be reached: PM Patient advised that office/PCP has 24-48 business hours to return their call: Yes documented in this encounter [facility] [employer] 03-04-2022 Telephone encounter Note Okay, will see patient tomorrow to discuss options, if we prescribe anything controlled we will have to have documentation in the chart. We would not start that without having an appointment. [facility] 03-03-2022 Telephone encounter Note The patient is calling the Virtual visit with multiple life issues - she has a grandson in shelter and her was diagnosed with cancer. Her son is a drug addict. She is frantic and feeling out of control. She is asking for medication to get her over the hump. Appointment made Adisn 03-03-2022 Miscellaneous Notes The patient is calling the Virtual visit with multiple life issues - she has a grandson in shelter and her was diagnosed with cancer. Her son is a drug addict. She is frantic and feeling out of control. She is asking for medication to get her over the hump. Appointment made We have never given her this medication last I see in the old epic was [address] Palomino. Name of caller: Dima Contact phone number: [phone] Relationship to Patient: patient Provider: Bernardo Practice: [facility] Chief Complaint/Reason for Call: Pt is asking for a script of ativan to be sent to the local pharmacy. Pt states they are under a lot of stress. Best time of day caller can be reached: PM Patient advised that office/PCP has 24-48 business hours to return their call: Yes documented in this encounter [facility] 03-03-2022 Telephone encounter Note We have never given her this medication last I see in the old epic was [address] Palomino. [employer] 03-03-2022 Telephone encounter Note Name of caller: Dima Contact phone number: [phone] Relationship to Patient: patient Provider: Bernardo Practice: [facility] Chief Complaint/Reason for Call: Pt is asking for a script of ativan to be sent to the local pharmacy. Pt states they are under a lot of stress. Best time of day caller can be reached: PM Patient advised that office/PCP has 24-48 business hours to return their call: Yes [employer] Evaluation note N/A [facility] of [facility] Evaluation note No assessment inform ation available [facility] Work Phone: Evaluation note Diagnosis Encounter for screening mammogram for breast cancer [facility] Positive self-administered antigen test for COVID-19- Primary [facility] Diagnosis COVID-19 virus infection- Primary Acute cough Bacterial sinusitis Unspecified sinusitis (chronic) [facility] Diagnosis Diarrhea in adult patient- Primary Primary hypertension Unspecified essential hypertension [facility] Diagnosis Loose stools- Primary Abnormal feces [facility] Diagnosis Nausea and vomiting Nausea with vomiting Bloating Flatulence, eructation, and gas pain Epigastric burning sensation Nausea and/or vomiting Nausea with vomiting Bloating Flatulence, eructation, and gas pain Diarrhea GERD (gastroesophageal reflux disease) Esophageal reflux Irritable bowel syndrome [facility] Diagnosis Nausea and vomiting- Primary Nausea with vomiting Bloating Flatulence, eructation, and gas pain Epigastric burning sensation Diarrhea Gastroesophageal reflux disease Esophageal reflux Irritable bowel syndrome (IBS) Nausea and vomiting Nausea with vomiting Bloating Flatulence, eructation, and gas pain Epigastric burning sensation Nausea and/or vomiting Nausea with vomiting Bloating Flatulence, eructation, and gas pain Diarrhea GERD (gastroesophageal reflux disease) Esophageal reflux Irritable bowel syndrome [facility] Diagnosis Diarrhea, unspecified- Primary Nausea and/or vomiting Nausea with vomiting Bloating Flatulence, eructation, and gas pain Diarrhea GERD (gastroesophageal reflux disease) Esophageal reflux Irritable bowel syndrome documented in this encounter [place] note* Diagnosis Hepatic steatosis- Primary Other chronic nonalcoholic liver disease Nausea and/or vomiting Nausea with vomiting Bloating Flatulence, eructation, and gas pain Diarrhea GERD (gastroesophageal reflux disease) Esophageal reflux Irritable bowel syndrome [facility] Diagnosis Primary hypertension- Primary Unspecified essential hypertension Anxiety Anxiety state, unspecified Major depressive disorder in partial remission, unspecified whether recurrent (HCC) Diarrhea in adult patient Nausea and/or vomiting Nausea with vomiting Bloating Flatulence, eructation, and gas pain Diarrhea GERD (gastroesophageal reflux disease) Esophageal reflux Irritable bowel syndrome documented in this encounter [place] note* Diagnosis Mild intermittent asthma without complication- Primary Primary hypertension Unspecified essential hypertension Vitamin D deficiency High cholesterol Pure hypercholesterolemia Major depressive disorder in partial remission, unspecified whether recurrent (HCC) Anxiety Anxiety state, unspecified Idiopathic 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 Screening for diabetes mellitus Nausea and/or vomiting Nausea with vomiting Bloating Flatulence, eructation, and gas pain Diarrhea GERD (gastroesophageal reflux disease) Esophageal reflux Irritable bowel syndrome documented in this encounter [place] note* Diagnosis Acute right-sided low back pain with right-sided sciatica- Primary [facility] Diagnosis Acute right-sided low back pain with right-sided sciatica [facility] Diagnosis Acute right-sided low back pain with right-sided sciatica [facility] Diagnosis Acute right-sided low back pain with right-sided sciatica- Primary [facility] Diagnosis Acute right-sided low back pain with right-sided sciatica- Primary [facility]* Diagnosis Primary hypertension- Primary Unspecified essential hypertension Acute right-sided low back pain with right-sided sciatica Screening for colon cancer Special screening for malignant neoplasms, colon [facility]* Diagnosis Acute right-sided low back pain with right-sided sciatica- Primary documented in this encounter [place] note* Diagnosis Spondylolisthesis of lumbar region- Primary Acquired spondylolisthesis documented in this encounter [facility] note* Diagnosis Hidradenitis suppurativa- Primary Hidradenitis documented in this encounter [facility] Work Phone: Evaluation note* Diagnosis Neuropathy of right peroneal nerve- Primary Radiculopathy, lumbar region Thoracic or lumbosacral neuritis or radiculitis, unspecified documented in this encounter [facility] note* Diagnosis Spondylolisthesis of lumbar region Acquired spondylolisthesis documented in this encounter [facility] note* Diagnosis Dyspnea on exertion- Primary Other dyspnea and respiratory abnormality Primary hypertension Unspecified essential hypertension Dependent edema Edema documented in this encounter [place] note* Diagnosis Radiculopathy, lumbar region- Primary Thoracic or lumbosacral neuritis or radiculitis, unspecified documented in this encounter [facility] note* Diagnosis Radiculopathy, lumbar region- Primary Thoracic or lumbosacral neuritis or radiculitis, unspecified Spinal stenosis of lumbar region with neurogenic claudication Spinal stenosis, lumbar region, with neurogenic claudication documented in this encounter [facility] note* Diagnosis OPENED IN ERROR- Primary To allow closing an encounter opened in error (used in [employer]) documented in this encounter [facility] note* Diagnosis Radiculopathy, lumbar region- Primary Thoracic or lumbosacral neuritis or radiculitis, unspecified Spinal stenosis of lumbar region with neurogenic claudication Spinal stenosis, lumbar region, with neurogenic claudication documented in this encounter [facility] note* Diagnosis Spinal stenosis of lumbar region with neurogenic claudication- Primary Spinal stenosis, lumbar region, with neurogenic claudication Radiculopathy, lumbar region Thoracic or lumbosacral neuritis or radiculitis, unspecified Preoperative clearance Preoperative examination, unspecified Pre-op testing Preoperative examination, unspecified documented in this encounter [facility] note* Diagnosis Pre-op evaluation- Primary Preoperative examination, unspecified High cholesterol Pure hypercholesterolemia Primary hypertension Unspecified essential hypertension Moderate persistent asthma without complication Unspecified asthma Gastroesophageal reflux disease, unspecified whether esophagitis present Hepatic steatosis Other chronic nonalcoholic liver disease Hidradenitis suppurativa Hidradenitis Depression, unspecified depression type Spinal stenosis of lumbar region with neurogenic claudication Spinal stenosis, lumbar region, with neurogenic claudication Radiculopathy, lumbar region Thoracic or lumbosacral neuritis or radiculitis, unspecified * Assessment & Plan Note - Ruth Wilcox PA-C - 08/11/2023 3:53 PM EDT Associated Problem(s): Depression Assessment: Depression and anxiety. On rx, stable per pt. * Assessment & Plan Note - Ruth Wilcox PA-C - 08/11/2023 3:53 PM EDT Associated Problem(s): Hidradenitis suppurativa Assessment: Follows with dermatology. On Humira weekly - prescriber encouraged continued use. Stable, no current infections. * Assessment & Plan Note - Ruth Wilcox PA-C - 08/11/2023 3:52 PM EDT Associated Problem(s): Hepatic steatosis Assessment: Follows with PCP, noted on imaging. LFTs wnl. * Assessment & Plan Note - Ruth Wilcox PA-C - 08/11/2023 3:50 PM EDT Associated Problem(s): Gastroesophageal reflux disease Assessment: Adherent to statin. * Assessment & Plan Note - Ruth Wilcox PA-C - 08/11/2023 3:50 PM EDT Associated Problem(s): Asthma Assessment: Follows with pulmonary. Breathing is at baseline. Adherent to inhaled therapies, Symbicort, PRN albuterol (no recent albuterol need. On exam, lungs CTA b/l. SpO2 96% on room air. * Assessment & Plan Note - Ruth Wilcox PA-C - 08/11/2023 3:49 PM EDT Associated Problem(s): Hypertension Assessment: Follows with PCP, adherent to RX. In office today BP: 126/79 * Assessment & Plan Note - Ruth Wilcox PA-C - 08/11/2023 3:49 PM EDT Associated Problem(s): High cholesterol Assessment: Adherent to statin therapy. [facility]* Diagnosis Acute right-sided low back pain with right-sided sciatica [facility]* Diagnosis Dyspnea on exertion- Primary Other dyspnea and respiratory abnormality Primary osteoarthritis involving multiple joints Primary hypertension Unspecified essential hypertension [facility]* Diagnosis Spinal stenosis of lumbar region with neurogenic claudication Spinal stenosis, lumbar region, with neurogenic claudication Spinal stenosis of lumbar region with neurogenic claudication Spinal stenosis, lumbar region, with neurogenic claudication Radiculopathy, lumbar region Thoracic or lumbosacral neuritis or radiculitis, unspecified [facility]* Diagnosis Radiculopathy, lumbar region Thoracic or lumbosacral neuritis or radiculitis, unspecified Spinal stenosis of lumbar region with neurogenic claudication Spinal stenosis, lumbar region, with neurogenic claudication Spinal stenosis of lumbar region with neurogenic claudication Spinal stenosis, lumbar region, with neurogenic claudication Radiculopathy, lumbar region Thoracic or lumbosacral neuritis or radiculitis, unspecified documented in this encounter [facility] note* Diagnosis Chronic pain syndrome- Primary Radiculopathy, lumbar region Thoracic or lumbosacral neuritis or radiculitis, unspecified Spinal stenosis of lumbar region with neurogenic claudication Spinal stenosis, lumbar region, with neurogenic claudication documented in this encounter [facility] note* Diagnosis Spinal stenosis of lumbar region with neurogenic claudication- Primary Spinal stenosis, lumbar region, with neurogenic claudication Spinal stenosis of lumbar region with neurogenic claudication Spinal stenosis, lumbar region, with neurogenic claudication Radiculopathy, lumbar region Thoracic or lumbosacral neuritis or radiculitis, unspecified documented in this encounter [facility] note* Diagnosis Radiculopathy, lumbar region- Primary Thoracic or lumbosacral neuritis or radiculitis, unspecified documented in this encounter [facility] note* Diagnosis Radiculopathy, lumbar region Thoracic or lumbosacral neuritis or radiculitis, unspecified documented in this encounter [facility] note* Diagnosis Pre-op evaluation- Primary Preoperative examination, unspecified High cholesterol Pure hypercholesterolemia Primary hypertension Unspecified essential hypertension Moderate persistent asthma without complication Unspecified asthma Gastroesophageal reflux disease, unspecified whether esophagitis present Hepatic steatosis Other chronic nonalcoholic liver disease Hidradenitis suppurativa Hidradenitis Depression, unspecified depression type Status post lumbar spine operative procedure for decompression of spinal cord- Primary documented in this encounter [facility] note* Diagnosis Pre-op evaluation- Primary Preoperative examination, unspecified High cholesterol Pure hypercholesterolemia Primary hypertension Unspecified essential hypertension Moderate persistent asthma without complication Unspecified asthma Gastroesophageal reflux disease, unspecified whether esophagitis present Hepatic steatosis Other chronic nonalcoholic liver disease Hidradenitis suppurativa Hidradenitis Depression, unspecified depression type Status post lumbar spine operative procedure for decompression of spinal cord documented in this encounter [facility] note* Diagnosis Radiculopathy, lumbar region Thoracic or lumbosacral neuritis or radiculitis, unspecified documented in this encounter [place] note* Diagnosis Radiculopathy, lumbar region- Primary Thoracic or lumbosacral neuritis or radiculitis, unspecified documented in this encounter [place] note* Diagnosis Radiculopathy, lumbar region- Primary Thoracic or lumbosacral neuritis or radiculitis, unspecified [facility]* Diagnosis Radiculopathy, lumbar region- Primary Thoracic or lumbosacral neuritis or radiculitis, unspecified Acute right-sided low back pain with right-sided sciatica documented in this encounter [place] note* Diagnosis Radiculopathy, lumbar region- Primary Thoracic or lumbosacral neuritis or radiculitis, unspecified Acute right-sided low back pain with right-sided sciatica documented in this encounter [place] note* Diagnosis Radiculopathy, lumbar region- Primary Thoracic or lumbosacral neuritis or radiculitis, unspecified Acute right-sided low back pain with right-sided sciatica documented in this encounter [place] note* Diagnosis Pre-op evaluation- Primary Preoperative examination, unspecified High cholesterol Pure hypercholesterolemia Primary hypertension Unspecified essential hypertension Moderate persistent asthma without complication Unspecified asthma Gastroesophageal reflux disease, unspecified whether esophagitis present Hepatic steatosis Other chronic nonalcoholic liver disease Hidradenitis suppurativa Hidradenitis Depression, unspecified depression type Postop check- Primary Follow-up examination, following unspecified surgery Status post lumbar spine operative procedure for decompression of spinal cord [facility]* Diagnosis Radiculopathy, lumbar region- Primary Thoracic or lumbosacral neuritis or radiculitis, unspecified Acute right-sided low back pain with right-sided sciatica documented in this encounter [place] note* Diagnosis Mild intermittent asthma without complication- Primary Primary hypertension Unspecified essential hypertension Recurrent major depressive disorder, in full remission (HCC) High cholesterol Pure hypercholesterolemia Moderate episode of recurrent major depressive disorder (HCC)- Primary Anxiety Anxiety state, unspecified Anxiety- Primary Anxiety state, unspecified Major depressive disorder in partial remission, unspecified whether recurrent (HCC) Primary hypertension Unspecified essential hypertension Diarrhea in adult patient- Primary Primary hypertension Unspecified essential hypertension Hepatic steatosis- Primary Other chronic nonalcoholic liver disease Primary hypertension- Primary Unspecified essential hypertension Anxiety Anxiety state, unspecified Major depressive disorder in partial remission, unspecified whether recurrent (HCC) Diarrhea in adult patient Mild intermittent asthma without complication- Primary Primary hypertension Unspecified essential hypertension Vitamin D deficiency High cholesterol Pure hypercholesterolemia Major depressive disorder in partial remission, unspecified whether recurrent (HCC) Anxiety Anxiety state, unspecified Idiopathic 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 Screening for diabetes mellitus Acute right-sided low back pain with right-sided sciatica- Primary Primary hypertension- Primary Unspecified essential hypertension Acute right-sided low back pain with right-sided sciatica Screening for colon cancer Special screening for malignant neoplasms, colon Dyspnea on exertion- Primary Other dyspnea and respiratory abnormality Primary hypertension Unspecified essential hypertension Dependent edema Edema Dyspnea on exertion- Primary Other dyspnea and respiratory abnormality Primary osteoarthritis involving multiple joints Primary hypertension Unspecified essential hypertension Radiculopathy, lumbar region- Primary Thoracic or lumbosacral neuritis or radiculitis, unspecified Acute right-sided low back pain with right-sided sciatica [facility] Diagnosis Mild intermittent asthma without complication- Primary Primary hypertension Unspecified essential hypertension Recurrent major depressive disorder, in full remission (HCC) High cholesterol Pure hypercholesterolemia Moderate episode of recurrent major depressive disorder (HCC)- Primary Anxiety Anxiety state, unspecified Anxiety- Primary Anxiety state, unspecified Major depressive disorder in partial remission, unspecified whether recurrent (HCC) Primary hypertension Unspecified essential hypertension Diarrhea in adult patient- Primary Primary hypertension Unspecified essential hypertension Hepatic steatosis- Primary Other chronic nonalcoholic liver disease Primary hypertension- Primary Unspecified essential hypertension Anxiety Anxiety state, unspecified Major depressive disorder in partial remission, unspecified whether recurrent (HCC) Diarrhea in adult patient Mild intermittent asthma without complication- Primary Primary hypertension Unspecified essential hypertension Vitamin D deficiency High cholesterol Pure hypercholesterolemia Major depressive disorder in partial remission, unspecified whether recurrent (HCC) Anxiety Anxiety state, unspecified Idiopathic 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 Screening for diabetes mellitus Acute right-sided low back pain with right-sided sciatica- Primary Primary hypertension- Primary Unspecified essential hypertension Acute right-sided low back pain with right-sided sciatica Screening for colon cancer Special screening for malignant neoplasms, colon Dyspnea on exertion- Primary Other dyspnea and respiratory abnormality Primary hypertension Unspecified essential hypertension Dependent edema Edema Dyspnea on exertion- Primary Other dyspnea and respiratory abnormality Primary osteoarthritis involving multiple joints Primary hypertension Unspecified essential hypertension Radiculopathy, lumbar region- Primary Thoracic or lumbosacral neuritis or radiculitis, unspecified [facility] Diagnosis Moderate episode of recurrent major depressive disorder (HCC)- Primary Anxiety Anxiety state, unspecified [facility] Diagnosis Anxiety- Primary Anxiety state, unspecified Major depressive disorder in partial remission, unspecified whether recurrent (HCC) Primary hypertension Unspecified essential hypertension documented in this encounter [facility] [facility] Diagnosis Rosacea- Primary Hidradenitis suppurativa Hidradenitis documented in this encounter [facility] Work Phone: Evaluation note* Diagnosis Mild intermittent asthma without complication- Primary Primary hypertension Unspecified essential hypertension Recurrent major depressive disorder, in full remission (HCC) High cholesterol Pure hypercholesterolemia Moderate episode of recurrent major depressive disorder (HCC)- Primary Anxiety Anxiety state, unspecified Anxiety- Primary Anxiety state, unspecified Major depressive disorder in partial remission, unspecified whether recurrent (HCC) Primary hypertension Unspecified essential hypertension Diarrhea in adult patient- Primary Primary hypertension Unspecified essential hypertension Hepatic steatosis- Primary Other chronic nonalcoholic liver disease Primary hypertension- Primary Unspecified essential hypertension Anxiety Anxiety state, unspecified Major depressive disorder in partial remission, unspecified whether recurrent (HCC) Diarrhea in adult patient Mild intermittent asthma without complication- Primary Primary hypertension Unspecified essential hypertension Vitamin D deficiency High cholesterol Pure hypercholesterolemia Major depressive disorder in partial remission, unspecified whether recurrent (HCC) Anxiety Anxiety state, unspecified Idiopathic 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 Screening for diabetes mellitus Acute right-sided low back pain with right-sided sciatica- Primary Primary hypertension- Primary Unspecified essential hypertension Acute right-sided low back pain with right-sided sciatica Screening for colon cancer Special screening for malignant neoplasms, colon Dyspnea on exertion- Primary Other dyspnea and respiratory abnormality Primary hypertension Unspecified essential hypertension Dependent edema Edema Dyspnea on exertion- Primary Other dyspnea and respiratory abnormality Primary osteoarthritis involving multiple joints Primary hypertension Unspecified essential hypertension Annual physical exam- Primary Routine general medical examination at a health care facility Mild intermittent asthma without complication Primary hypertension Unspecified essential hypertension Vitamin D deficiency Anxiety Anxiety state, unspecified Major depressive disorder in partial remission, unspecified whether recurrent (HCC) Idiopathic 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 Hypercholesterolemia Pure hypercholesterolemia Screening for diabetes mellitus Screening for colon cancer Special screening for malignant neoplasms, colon Muscle spasms of both lower extremities [facility] Diagnosis Mild intermittent asthma without complication- Primary Primary hypertension Unspecified essential hypertension Recurrent major depressive disorder, in full remission (HCC) High cholesterol Pure hypercholesterolemia Moderate episode of recurrent major depressive disorder (HCC)- Primary Anxiety Anxiety state, unspecified Anxiety- Primary Anxiety state, unspecified Major depressive disorder in partial remission, unspecified whether recurrent (HCC) Primary hypertension Unspecified essential hypertension Diarrhea in adult patient- Primary Primary hypertension Unspecified essential hypertension Hepatic steatosis- Primary Other chronic nonalcoholic liver disease Primary hypertension- Primary Unspecified essential hypertension Anxiety Anxiety state, unspecified Major depressive disorder in partial remission, unspecified whether recurrent (HCC) Diarrhea in adult patient Mild intermittent asthma without complication- Primary Primary hypertension Unspecified essential hypertension Vitamin D deficiency High cholesterol Pure hypercholesterolemia Major depressive disorder in partial remission, unspecified whether recurrent (HCC) Anxiety Anxiety state, unspecified Idiopathic 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 Screening for diabetes mellitus Acute right-sided low back pain with right-sided sciatica- Primary Primary hypertension- Primary Unspecified essential hypertension Acute right-sided low back pain with right-sided sciatica Screening for colon cancer Special screening for malignant neoplasms, colon Dyspnea on exertion- Primary Other dyspnea and respiratory abnormality Primary hypertension Unspecified essential hypertension Dependent edema Edema Dyspnea on exertion- Primary Other dyspnea and respiratory abnormality Primary osteoarthritis involving multiple joints Primary hypertension Unspecified essential hypertension Annual physical exam- Primary Routine general medical examination at a health care facility Mild intermittent asthma without complication Primary hypertension Unspecified essential hypertension Vitamin D deficiency Anxiety Anxiety state, unspecified Major depressive disorder in partial remission, unspecified whether recurrent (HCC) Idiopathic 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 Hypercholesterolemia Pure hypercholesterolemia Screening for diabetes mellitus Screening for colon cancer Special screening for malignant neoplasms, colon Muscle spasms of both lower extremities Vitamin D deficiency- Primary [facility] Diagnosis Mild intermittent asthma without complication- Primary Primary hypertension Unspecified essential hypertension Recurrent major depressive disorder, in full remission (HCC) High cholesterol Pure hypercholesterolemia Moderate episode of recurrent major depressive disorder (HCC)- Primary Anxiety Anxiety state, unspecified Anxiety- Primary Anxiety state, unspecified Major depressive disorder in partial remission, unspecified whether recurrent (HCC) Primary hypertension Unspecified essential hypertension Diarrhea in adult patient- Primary Primary hypertension Unspecified essential hypertension Hepatic steatosis- Primary Other chronic nonalcoholic liver disease Primary hypertension- Primary Unspecified essential hypertension Anxiety Anxiety state, unspecified Major depressive disorder in partial remission, unspecified whether recurrent (HCC) Diarrhea in adult patient Mild intermittent asthma without complication- Primary Primary hypertension Unspecified essential hypertension Vitamin D deficiency High cholesterol Pure hypercholesterolemia Major depressive disorder in partial remission, unspecified whether recurrent (HCC) Anxiety Anxiety state, unspecified Idiopathic 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 Screening for diabetes mellitus Acute right-sided low back pain with right-sided sciatica- Primary Primary hypertension- Primary Unspecified essential hypertension Acute right-sided low back pain with right-sided sciatica Screening for colon cancer Special screening for malignant neoplasms, colon Dyspnea on exertion- Primary Other dyspnea and respiratory abnormality Primary hypertension Unspecified essential hypertension Dependent edema Edema Dyspnea on exertion- Primary Other dyspnea and respiratory abnormality Primary osteoarthritis involving multiple joints Primary hypertension Unspecified essential hypertension Annual physical exam- Primary Routine general medical examination at a health care facility Mild intermittent asthma without complication Primary hypertension Unspecified essential hypertension Vitamin D deficiency Anxiety Anxiety state, unspecified Major depressive disorder in partial remission, unspecified whether recurrent (HCC) Idiopathic 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 Hypercholesterolemia Pure hypercholesterolemia Screening for diabetes mellitus Screening for colon cancer Special screening for malignant neoplasms, colon Muscle spasms of both lower extremities Primary osteoarthritis of right knee Acute pain of right knee Acute pain of right knee [facility] Diagnosis Mild intermittent asthma without complication- Primary Primary hypertension Unspecified essential hypertension Recurrent major depressive disorder, in full remission (HCC) High cholesterol Pure hypercholesterolemia Moderate episode of recurrent major depressive disorder (HCC)- Primary Anxiety Anxiety state, unspecified Anxiety- Primary Anxiety state, unspecified Major depressive disorder in partial remission, unspecified whether recurrent (HCC) Primary hypertension Unspecified essential hypertension Diarrhea in adult patient- Primary Primary hypertension Unspecified essential hypertension Hepatic steatosis- Primary Other chronic nonalcoholic liver disease Primary hypertension- Primary Unspecified essential hypertension Anxiety Anxiety state, unspecified Major depressive disorder in partial remission, unspecified whether recurrent (HCC) Diarrhea in adult patient Mild intermittent asthma without complication- Primary Primary hypertension Unspecified essential hypertension Vitamin D deficiency High cholesterol Pure hypercholesterolemia Major depressive disorder in partial remission, unspecified whether recurrent (HCC) Anxiety Anxiety state, unspecified Idiopathic 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 Screening for diabetes mellitus Acute right-sided low back pain with right-sided sciatica- Primary Primary hypertension- Primary Unspecified essential hypertension Acute right-sided low back pain with right-sided sciatica Screening for colon cancer Special screening for malignant neoplasms, colon Dyspnea on exertion- Primary Other dyspnea and respiratory abnormality Primary hypertension Unspecified essential hypertension Dependent edema Edema Dyspnea on exertion- Primary Other dyspnea and respiratory abnormality Primary osteoarthritis involving multiple joints Primary hypertension Unspecified essential hypertension Annual physical exam- Primary Routine general medical examination at a health care facility Mild intermittent asthma without complication Primary hypertension Unspecified essential hypertension Vitamin D deficiency Anxiety Anxiety state, unspecified Major depressive disorder in partial remission, unspecified whether recurrent (HCC) Idiopathic 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 Hypercholesterolemia Pure hypercholesterolemia Screening for diabetes mellitus Screening for colon cancer Special screening for malignant neoplasms, colon Muscle spasms of both lower extremities Acute pain of right knee [facility] Diagnosis Mild intermittent asthma without complication- Primary Primary hypertension Unspecified essential hypertension Recurrent major depressive disorder, in full remission (HCC) High cholesterol Pure hypercholesterolemia Moderate episode of recurrent major depressive disorder (HCC)- Primary Anxiety Anxiety state, unspecified Anxiety- Primary Anxiety state, unspecified Major depressive disorder in partial remission, unspecified whether recurrent (HCC) Primary hypertension Unspecified essential hypertension Diarrhea in adult patient- Primary Primary hypertension Unspecified essential hypertension Hepatic steatosis- Primary Other chronic nonalcoholic liver disease Primary hypertension- Primary Unspecified essential hypertension Anxiety Anxiety state, unspecified Major depressive disorder in partial remission, unspecified whether recurrent (HCC) Diarrhea in adult patient Mild intermittent asthma without complication- Primary Primary hypertension Unspecified essential hypertension Vitamin D deficiency High cholesterol Pure hypercholesterolemia Major depressive disorder in partial remission, unspecified whether recurrent (HCC) Anxiety Anxiety state, unspecified Idiopathic 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 Screening for diabetes mellitus Acute right-sided low back pain with right-sided sciatica- Primary Primary hypertension- Primary Unspecified essential hypertension Acute right-sided low back pain with right-sided sciatica Screening for colon cancer Special screening for malignant neoplasms, colon Dyspnea on exertion- Primary Other dyspnea and respiratory abnormality Primary hypertension Unspecified essential hypertension Dependent edema Edema Dyspnea on exertion- Primary Other dyspnea and respiratory abnormality Primary osteoarthritis involving multiple joints Primary hypertension Unspecified essential hypertension Annual physical exam- Primary Routine general medical examination at a health care facility Mild intermittent asthma without complication Primary hypertension Unspecified essential hypertension Vitamin D deficiency Anxiety Anxiety state, unspecified Major depressive disorder in partial remission, unspecified whether recurrent (HCC) Idiopathic 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 Hypercholesterolemia Pure hypercholesterolemia Screening for diabetes mellitus Screening for colon cancer Special screening for malignant neoplasms, colon Muscle spasms of both lower extremities Anxiety Anxiety state, unspecified [facility]* Diagnosis Rosacea- Primary Hidradenitis suppurativa Hidradenitis Other chcf (current) drug therapy documented in this encounter [facility] Work Phone: Evaluation note* Diagnosis Mild intermittent asthma without complication- Primary Primary hypertension Unspecified essential hypertension Recurrent major depressive disorder, in full remission (HCC) High cholesterol Pure hypercholesterolemia Moderate episode of recurrent major depressive disorder (HCC)- Primary Anxiety Anxiety state, unspecified Anxiety- Primary Anxiety state, unspecified Major depressive disorder in partial remission, unspecified whether recurrent (HCC) Primary hypertension Unspecified essential hypertension Diarrhea in adult patient- Primary Primary hypertension Unspecified essential hypertension Hepatic steatosis- Primary Other chronic nonalcoholic liver disease Primary hypertension- Primary Unspecified essential hypertension Anxiety Anxiety state, unspecified Major depressive disorder in partial remission, unspecified whether recurrent (HCC) Diarrhea in adult patient Mild intermittent asthma without complication- Primary Primary hypertension Unspecified essential hypertension Vitamin D deficiency High cholesterol Pure hypercholesterolemia Major depressive disorder in partial remission, unspecified whether recurrent (HCC) Anxiety Anxiety state, unspecified Idiopathic 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 Screening for diabetes mellitus Acute right-sided low back pain with right-sided sciatica- Primary Primary hypertension- Primary Unspecified essential hypertension Acute right-sided low back pain with right-sided sciatica Screening for colon cancer Special screening for malignant neoplasms, colon Dyspnea on exertion- Primary Other dyspnea and respiratory abnormality Primary hypertension Unspecified essential hypertension Dependent edema Edema Dyspnea on exertion- Primary Other dyspnea and respiratory abnormality Primary osteoarthritis involving multiple joints Primary hypertension Unspecified essential hypertension Annual physical exam- Primary Routine general medical examination at a health care facility Mild intermittent asthma without complication Primary hypertension Unspecified essential hypertension Vitamin D deficiency Anxiety Anxiety state, unspecified Major depressive disorder in partial remission, unspecified whether recurrent (HCC) Idiopathic 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 Hypercholesterolemia Pure hypercholesterolemia Screening for diabetes mellitus Screening for colon cancer Special screening for malignant neoplasms, colon Muscle spasms of both lower extremities Primary osteoarthritis of right knee- Primary [facility] Diagnosis Mild intermittent asthma without complication- Primary Primary hypertension Unspecified essential hypertension Recurrent major depressive disorder, in full remission (HCC) High cholesterol Pure hypercholesterolemia Moderate episode of recurrent major depressive disorder (HCC)- Primary Anxiety Anxiety state, unspecified Anxiety- Primary Anxiety state, unspecified Major depressive disorder in partial remission, unspecified whether recurrent (HCC) Primary hypertension Unspecified essential hypertension Diarrhea in adult patient- Primary Primary hypertension Unspecified essential hypertension Hepatic steatosis- Primary Other chronic nonalcoholic liver disease Primary hypertension- Primary Unspecified essential hypertension Anxiety Anxiety state, unspecified Major depressive disorder in partial remission, unspecified whether recurrent (HCC) Diarrhea in adult patient Mild intermittent asthma without complication- Primary Primary hypertension Unspecified essential hypertension Vitamin D deficiency High cholesterol Pure hypercholesterolemia Major depressive disorder in partial remission, unspecified whether recurrent (HCC) Anxiety Anxiety state, unspecified Idiopathic 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 Screening for diabetes mellitus Acute right-sided low back pain with right-sided sciatica- Primary Primary hypertension- Primary Unspecified essential hypertension Acute right-sided low back pain with right-sided sciatica Screening for colon cancer Special screening for malignant neoplasms, colon Dyspnea on exertion- Primary Other dyspnea and respiratory abnormality Primary hypertension Unspecified essential hypertension Dependent edema Edema Dyspnea on exertion- Primary Other dyspnea and respiratory abnormality Primary osteoarthritis involving multiple joints Primary hypertension Unspecified essential hypertension Annual physical exam- Primary Routine general medical examination at a health care facility Mild intermittent asthma without complication Primary hypertension Unspecified essential hypertension Vitamin D deficiency Anxiety Anxiety state, unspecified Major depressive disorder in partial remission, unspecified whether recurrent (HCC) Idiopathic 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 Hypercholesterolemia Pure hypercholesterolemia Screening for diabetes mellitus Screening for colon cancer Special screening for malignant neoplasms, colon Muscle spasms of both lower extremities Anxiety Anxiety state, unspecified [facility] Additional Instructions Until you see your doctor take baby aspirin once daily, and follow-up regarding risk factor modification such as your blood pressure.[facility] Work Phone: Hospital Discharge instructions Additional Instructions No pneumonia on your chest x-ray. The antibiotic Zithromax 1 pill a day starting tomorrow and dinner. Prednisone daily at lunch 40 mg a day for 1 week. Use your inhaler as needed. Nebulizer as needed. Follow-up with your doctor if not improving or return if a lot worse.[facility] Work Phone: Instructions* Attachments The following attachments cannot be sent through Care Everywhere. * Flu Vaccine (Beninese) [facility] Name Reason for referral NA [facility]atology Reason for referral (narrative)* Diagnostic Procedure Only (Routine) - Pending Review Specialty Diagnoses / Procedures Referred By Priyank t Referred To Contact [facility] Diagnoses Encounter for screening mammogram for breast cancer Procedures TOM SCREENING SCREENING MAMMOGRAPHY BI 2-VIEW BREAST INC Alma Rosa Navas, SUPERVIS[employer] TECHNICIAN [address] [place] [address] [facility] [address] [place] [address] Referral ID Status Reason Start Date Expiration Date Visits Requested Visits Authorized [id number] Pending Review Auto-Generat ed Referral 12/23/2021 01/22/2023 1 1 [facility] for referral (narrative)* Consultation (Routine) - Pending Review Specialty Diagnoses / Procedures Referred By Contac t Referred To Contact Gastroenterology Diagnoses Screening for colon cancer Procedures OK OFFICE/OUTPATIENT [facility] 60 MINUTES Casey Chang MD [address] [facility], [place] [address] [facility] [address] [place] [address] Referral ID Status Reason Start Date Expiration Date Visits Requested Visits Authorized [id number] Pending Review Specialty Services Required 05/26/2023 05/25/2024 1 1 [facility] for referral (narrative)* Diagnostic Procedure Only (Routine) - Pending Review Specialty Diagnoses / Procedures Referred By Contac t Referred To Contact XR IMAGING Diagnoses Spondylolisthesis of lumbar region Procedures XR LUMBAR MOTION 4V AP/LAT/ FLEX/EXT RADEX SPINE LUMBOSACRAL MINIMUM 4 VIEWS Gia Fernandes PA-C [address] [place] [address] [place] [address] Referral ID Status Reason Start Date Expiration Date Visits Requested Visits Authorized [id number] Pending Review Auto-Generat ed Referral 06/30/2023 07/29/2024 1 1 [facility] for referral (narrative)* Outpatient Procedure (Routine) - Authorized Specialty Diagnoses / Procedures Referred By Contac t Referred To Contact [facility] Diagnoses Neuropathy of right peroneal nerve Radiculopathy, lumbar region Procedures EMG(NEURO/NI) NERVE CONDUCTION STUDIES 9-10 STUDIES Martha Lorenzo MD [address] [place] [address] [facility] [place] [address] [place] [id number] Referral ID Status Reason Start Date Expiration Date Visits Requested Visits Authorized [id number] Authorized Auto-Generat ed Referral 07/13/2023 07/12/2024 1 1 [facility] for referral (narrative)* Diagnostic Procedure Only (Routine) - Pending Review Specialty Diagnoses / Procedures Referred By Contac t Referred To Contact XR IMAGING Diagnoses Radiculopathy, lumbar region Spinal stenosis of lumbar region with neurogenic claudication Procedures XR SCOLIOSIS PA STAND/LAT 2V RADEX ENTIR THRC LMBR CRV SAC SPI W/SKULL 2/3 VW Martha Lorenzo MD [address] [place] [id number] Xr Imaging [facility] Referral ID Status Reason Start Date Expiration Date Visits Requested Visits Authorized [id number] Pending Review Auto-Generat ed Referral 08/02/2023 08/31/2024 1 1 * MRI/CT (Routine) - Authorized Specialty Diagnoses / Procedures Referred By Rosiac t Referred To Contact CT IMAGING Diagnoses Spinal stenosis of lumbar region with neurogenic claudication Procedures CT LUMBAR SPINE WO IVCON CT LUMBAR SPINE W/O CONTRAST MATERIAL Martha Lorenzo MD [id number] [place] [address] Referral ID Status Reason Start Date Expiration Date Visits Requested Visits Authorized [id number] Authorized Auto-Generat ed Referral 08/02/2023 08/31/2024 1 1 [facility] for referral (narrative)* Outpatient Procedure (Routine) - Pending Review Specialty Diagnoses / Procedures Referred By Contac t Referred To Contact [facility] Diagnoses Pre-op evaluation Procedures ECG COMPLETE ECG ROUTINE ECG W/LEAST 12 LDS W/I&R Ruth Wilcox PA-C [address] [place] [address] [facility] [place] [address] [place] [address] Referral ID Status Reason Start Date Expiration Date Visits Requested Visits Authorized [id number] Pending Review Auto-Generat ed Referral 08/11/2023 08/10/2024 1 1 [facility] for referral (narrative)* Diagnostic Procedure Only (Routine) - Closed Specialty Diagnoses / Procedures Referred By Priyank lundberg Referred To Contact XR IMAGING Diagnoses Status post lumbar spine operative procedure for decompression of spinal cord Procedures XR HIP BILATERAL 5V PEL/AP/LAT EACH HIP RADEX HIPS BILATERAL WITH PELVIS MINIMUM 5 VIEWS Martha Lorenzo MD [address] [place] [id number] [place] [address] Referral ID Status Reason Start Date Expiration Date V isits Requested Visits Authorized [id number] Closed Auto-Generate d Referral 10/04/2023 11/02/2024 1 1 * Physical Therapy (Routine) - Pending Review Specialty Diagnoses / Procedures Referred By Priyank lundberg Referred To Contact [facility] Diagnoses Status post lumbar spine operative procedure for decompression of spinal cord Procedures CONSULT TO PHYSICAL THERAPY PHYSICAL THERAPY EVALUATION HIGH COMPLEX 45 MINS Martha Lorenzo MD [address] [place] [address] [facility] [facility] [address] [address] Referral ID Status Reason Start Date Expiration Date Visits Requested Visits Authorized [id number] Pending Review Auto-Generat ed Referral 10/04/2023 10/03/2024 1 1 [facility] for visit Narrative* Diagnostic Procedure Only (Routine) - Closed Specialty Diagnoses / Procedures Referred By Contac t Referred To Contact XR IMAGING Diagnoses Spondylolisthesis of lumbar region Procedures XR LUMBAR MOTION 4V AP/LAT/ FLEX/EXT RADEX SPINE LUMBOSACRAL MINIMUM 4 VIEWS Gia Fernandes PA-C [address] [place] [address] X[facility] [place] [address] Referral ID Status Reason Start Date Expiration Date V isits Requested Visits Authorized [id number] Closed Auto-Generate d Referral 06/30/2023 07/29/2024 1 1 [facility] for visit Narrative* Outpatient Procedure (Routine) - Closed Specialty Diagnoses / Procedures Referred By Contac t Referred To Contact [facility] Diagnoses Neuropathy of right peroneal nerve Radiculopathy, lumbar region Procedures EMG(NEURO/NI) NERVE CONDUCTION STUDIES 9-10 STUDIES Martha Lorenzo MD [address] [place] [address] [facility] [place] [address] [place] [address] Referral ID Status Reason Start Date Expiration Date V isits Requested Visits Authorized [id number] Closed Auto-Generate d Referral 07/13/2023 07/12/2024 1 1 [facility] for visit Narrative* Diagnostic Procedure Only (Routine) - Closed Specialty Diagnoses / Procedures Referred By Contac t Referred To Contact XR IMAGING Diagnoses Status post lumbar spine operative procedure for decompression of spinal cord Procedures XR HIP BILATERAL 5V PEL/AP/LAT EACH HIP RADEX HIPS BILATERAL WITH PELVIS MINIMUM 5 VIEWS Martha Lorenzo MD [address] [place] [address] X[facility] [place] [address] Referral ID Status Reason Start Date Expiration Date V isits Requested Visits Authorized [id number] Closed Auto-Generate d Referral 10/04/2023 11/02/2024 1 1 [facility] for visit Narrative* Therapy (Routine) - Authorized Specialty Diagnoses / Procedures Referred By Contac t Referred To Contact Physical Therapy Diagnoses Radiculopathy, lumbar region Procedures OK OFFICE/OUTPATIENT NEW HIGH MDM 60 MINUTES Rajinder Brownlee MD [address] [place] [address] Phone: tel: fax: [facility] [address] [place] [address] [place] [address] Phone: tel: fax: Referral ID Status Reason Start Date Expiration Date Visits Requested Visits Authorized [id number] Authorized Eval and Treat 10/04/2023 09/28/2024 30 30 [facility] Health Assessments N/A Reason for Referral Name Reason for referral NA NA Specialty Diagnoses / Procedures Referred By Contac t Referred To Contact Gastroenterology Diagnoses Loose stools Procedures CONSULT TO GASTROENTEROLOGY OFFICE/OUTPATIENT [facility] MDM 60-74 MINUTES Gus Castaneda APRN.CLASSROOM TECHNOLOGY TECHNICIAN [address] [place] [address] Referral ID Status Reason Start Date Expiration Date Visits Requested Visits Authorized [id number] Pending Review PCP Requested Referral 07/15/2022 07/15/2023 1 1 Specialty Diagnoses / Procedures Referred By Contac t Referred To Contact Physical Therapy Diagnoses Acute right-sided low back pain with right-sided sciatica Procedures OK OFFICE/OUTPATIENT [facility] MDM 60 MINUTES Flakita Garcia APRN - CLASSROOM TECHNOLOGY TECHNICIAN [address] [place] [address] [facility] [address] [facility] [place] [address] Referral ID Status Reason Start Date Expiration Date Visits Requested Visits Authorized [id number] Pending Review Eval and Treat 04/26/2023 04/20/2024 99 99 Specialty Diagnoses / Procedures Referred By Contac t Referred To Contact Cardiology Diagnoses Dyspnea on exertion Procedures Transthoracic echocardiogram (TTE) complete with contrast, bubble, strain, and 3D PRN OK ECHO TTHRC R-T 2D W/WOM-MODE COMPL SPEC&COLR D OK TTE W OR WO FOL WCZA,Casey Holguin MD [address] [facility] [place] [address] Referral ID Status Reason Start Date Expiration Date V isits Requested Visits Authorized [id number] Pending Review 07/28/2023 07/27/2024 1 1 Specialty Diagnoses / Procedures Referred By Contac t Referred To Contact Diagnoses Spinal stenosis of lumbar region with neurogenic claudication Radiculopathy, lumbar region Preoperative clearance Procedures REFER TO PACC / [facility] - PREOPERATIVE OPTIMIZATION OFFICE/OUTPATIENT [facility] 60 MINUTES Sanchez Gomez PA-C [address] [place] [phone] Referral ID Status Reason Start Date Expiration Date Visits Requested Visits Authorized [id number] Authorized PCP Requested Referral 08/03/2023 08/02/2024 1 1 Specialty Diagnoses / Procedures Referred By Contac t Referred To Contact [facility] [place] Diagnoses Chronic pain syndrome Procedures CONSULT TO [facility] (CHRONIC PAIN) OFFICE/OUTPATIENT [facility] 60 MINUTES Elyssa Rizo PSYD [address] [place] [address] Referral ID Status Reason Start Date Expiration Date Visits Requested Visits Authorized [id number] Pending Review PCP Requested Referral 08/24/2023 08/23/2024 1 1 Specialty Diagnoses / Procedures Referred By Contac t Referred To Contact [facility] Diagnoses Radiculopathy, lumbar region Procedures CONSULT TO PHYSICAL THERAPY PHYSICAL THERAPY EVALUATION HIGH COMPLEX 45 MINS Sanchez Poole PA-C [address] [place] [address] [facility] [place] [address] [place] [address] Referral ID Status Reason Start Date Expiration Date Visits Requested Visits Authorized [id number] Pending Review Auto-Generat ed Referral 09/08/2023 12/07/2023 1 1 Summary Purpose Family History No Family History Records Found Relationship Condition Age at Onset Recorded Date/T elisa mother Malignant neoplasm of cervix Unknown Autoimmune disease Unknown Asthma Unknown Arthritis Unknown father Cardiac disease Unknown Advance Directives No Advanced Directives Records Found Advance Directive Response Recorded Date/ Time Living Will No December 21 1:07pm Power of Wireline Supervisor No December 21, 2021 1:07pm Advance Directive Response Recorded Date/ Time Living Will No May 20, 2023 10:43pm Power of Wireline Supervisor No May 19 10:43pm Documents on File Type Date 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 Advance Directive(s) 08/25/2023 5:48 AM Documents on File Type Date 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 Advance Directive(s) 08/25/2023 5:48 AM Chief Complaint and Reason for Visit Chief Complaint weakness,headache Chief Complaint General Illness Chief Complaint General Illness X-RAY OF LUMBAR Additional Source Comments INFORMATION SOURCE (unrecogn ized section and content) DATE CREATED AUTHOR 12/19/2021 [facility] DATE CREATED AUTHOR AUTHOR'S ORGANIZ ATION 06/01/2023 [facility] DATE CREATED AUTHOR AUTHOR'S ORGANIZ ATION 06/18/2023 [facility] DATE CREATED AUTHOR AUTHOR'S ORGANIZ ATION 08/20/2023 [facility] DATE CREATED AUTHOR AUTHOR'S ORGANIZ ATION 10/10/2023 [facility] DATE CREATED AUTHOR AUTHOR'S ORGANIZ ATION 11/24/2023 [facility] DATE CREATED AUTHOR AUTHOR'S ORGANIZ ATION 04/17/2024 [facility] DATE CREATED AUTHOR AUTHOR'S ORGANIZ ATION 10/21/2024 [facility] DATE CREATED AUTHOR AUTHOR'S ORGANIZ ATION 12/22/2024 [facility] DATE CREATED AUTHOR AUTHOR'S ORGANIZ ATION 12/26/2024 [facility] Goals (unrecognized section and content) Goals may be documented in a n alternate sectionGoals may be documented in an alternate sectionGoals may be documented in an alternate section Source Comments (unrecognize d section and content) In the event this informatio n is protected by the Federal Confidentiality of Alcohol and Drug Abuse Patient Records regulations: The Federal rules restrict any use of the information to criminally investigate or prosecute any alcohol or drug abuse patient.[facility] CenterIn the event this information is protected by the Federal Confidentiality of Alcohol and Drug Abuse Patient Records regulations: The Federal rules restrict any use of the information to criminally investigate or prosecute any alcohol or drug abuse patient.[facility] CenterIn the event this information is protected by the Federal Confidentiality of Alcohol and Drug Abuse Patient Records regulations: The Federal rules restrict any use of the information to criminally investigate or prosecute any alcohol or drug abuse patient.[facility] CenterIn the event this information is protected by the Federal Confidentiality of Alcohol and Drug Abuse Patient Records regulations: The Federal rules restrict any use of the information to criminally investigate or prosecute any alcohol or drug abuse patient.[facility] CenterIn the event this information is protected by the Federal Confidentiality of Alcohol and Drug Abuse Patient Records regulations: The Federal rules restrict any use of the information to criminally investigate or prosecute any alcohol or drug abuse patient.[facility] CenterIn the event this information is protected by the Federal Confidentiality of Alcohol and Drug Abuse Patient Records regulations: The Federal rules restrict any use of the information to criminally investigate or prosecute any alcohol or drug abuse patient.[facility] CenterIn the event this information is protected by the Federal Confidentiality of Alcohol and Drug Abuse Patient Records regulations: The Federal rules restrict any use of the information to criminally investigate or prosecute any alcohol or drug abuse patient.[facility] CenterIn the event this information is protected by the Federal Confidentiality of Alcohol and Drug Abuse Patient Records regulations: The Federal rules restrict any use of the information to criminally investigate or prosecute any alcohol or drug abuse patient.[facility] CenterIn the event this information is protected by the Federal Confidentiality of Alcohol and Drug Abuse Patient Records regulations: The Federal rules restrict any use of the information to criminally investigate or prosecute any alcohol or drug abuse patient.[facility] CenterIn the event this information is protected by the Federal Confidentiality of Alcohol and Drug Abuse Patient Records regulations: The Federal rules restrict any use of the information to criminally investigate or prosecute any alcohol or drug abuse patient.[facility] CenterIn the event this information is protected by the Federal Confidentiality of Alcohol and Drug Abuse Patient Records regulations: The Federal rules restrict any use of the information to criminally investigate or prosecute any alcohol or drug abuse patient.[facility] CenterIn the event this information is protected by the Federal Confidentiality of Alcohol and Drug Abuse Patient Records regulations: The Federal rules restrict any use of the information to criminally investigate or prosecute any alcohol or drug abuse patient.[facility] CenterIn the event this information is protected by the Federal Confidentiality of Alcohol and Drug Abuse Patient Records regulations: The Federal rules restrict any use of the information to criminally investigate or prosecute any alcohol or drug abuse patient.[facility] CenterIn the event this information is protected by the Federal Confidentiality of Alcohol and Drug Abuse Patient Records regulations: The Federal rules restrict any use of the information to criminally investigate or prosecute any alcohol or drug abuse patient.[facility] CenterIn the event this information is protected by the Federal Confidentiality of Alcohol and Drug Abuse Patient Records regulations: The Federal rules restrict any use of the information to criminally investigate or prosecute any alcohol or drug abuse patient.[facility] CenterIn the event this information is protected by the Federal Confidentiality of Alcohol and Drug Abuse Patient Records regulations: The Federal rules restrict any use of the information to criminally investigate or prosecute any alcohol or drug abuse patient.[facility] CenterIn the event this information is protected by the Federal Confidentiality of Alcohol and Drug Abuse Patient Records regulations: The Federal rules restrict any use of the information to criminally investigate or prosecute any alcohol or drug abuse patient.[facility] CenterIn the event this information is protected by the Federal Confidentiality of Alcohol and Drug Abuse Patient Records regulations: The Federal rules restrict any use of the information to criminally investigate or prosecute any alcohol or drug abuse patient.[facility] CenterIn the event this information is protected by the Federal Confidentiality of Alcohol and Drug Abuse Patient Records regulations: The Federal rules restrict any use of the information to criminally investigate or prosecute any alcohol or drug abuse patient.[facility] CenterIn the event this information is protected by the Federal Confidentiality of Alcohol and Drug Abuse Patient Records regulations: The Federal rules restrict any use of the information to criminally investigate or prosecute any alcohol or drug abuse patient.[facility] CenterIn the event this information is protected by the Federal Confidentiality of Alcohol and Drug Abuse Patient Records regulations: The Federal rules restrict any use of the information to criminally investigate or prosecute any alcohol or drug abuse patient.[facility] CenterIn the event this information is protected by the Federal Confidentiality of Alcohol and Drug Abuse Patient Records regulations: The Federal rules restrict any use of the information to criminally investigate or prosecute any alcohol or drug abuse patient.[facility] CenterIn the event this information is protected by the Federal Confidentiality of Alcohol and Drug Abuse Patient Records regulations: The Federal rules restrict any use of the information to criminally investigate or prosecute any alcohol or drug abuse patient.[facility] CenterIn the event this information is protected by the Federal Confidentiality of Alcohol and Drug Abuse Patient Records regulations: The Federal rules restrict any use of the information to criminally investigate or prosecute any alcohol or drug abuse patient.[facility] CenterIn the event this information is protected by the Federal Confidentiality of Alcohol and Drug Abuse Patient Records regulations: The Federal rules restrict any use of the information to criminally investigate or prosecute any alcohol or drug abuse patient.[facility] CenterIn the event this information is protected by the Federal Confidentiality of Alcohol and Drug Abuse Patient Records regulations: The Federal rules restrict any use of the information to criminally investigate or prosecute any alcohol or drug abuse patient.[facility] CenterIn the event this information is protected by the Federal Confidentiality of Alcohol and Drug Abuse Patient Records regulations: The Federal rules restrict any use of the information to criminally investigate or prosecute any alcohol or drug abuse patient.[facility] CenterIn the event this information is protected by the Federal Confidentiality of Alcohol and Drug Abuse Patient Records regulations: The Federal rules restrict any use of the information to criminally investigate or prosecute any alcohol or drug abuse patient.[facility] CenterIn the event this information is protected by the Federal Confidentiality of Alcohol and Drug Abuse Patient Records regulations: The Federal rules restrict any use of the information to criminally investigate or prosecute any alcohol or drug abuse patient.[facility] CenterIn the event this information is protected by the Federal Confidentiality of Alcohol and Drug Abuse Patient Records regulations: The Federal rules restrict any use of the information to criminally investigate or prosecute any alcohol or drug abuse patient.[facility] CenterIn the event this information is protected by the Federal Confidentiality of Alcohol and Drug Abuse Patient Records regulations: The Federal rules restrict any use of the information to criminally investigate or prosecute any alcohol or drug abuse patient.[facility] CenterIn the event this information is protected by the Federal Confidentiality of Alcohol and Drug Abuse Patient Records regulations: The Federal rules restrict any use of the information to criminally investigate or prosecute any alcohol or drug abuse patient.[facility] Care Teams (unrecognized sec tion and content) Transformation Coach Relationship Specialty Start Date End Date JessicaAlma Rosa, SUPERVISOR GRADING.CLASSROOM TECHNOLOGY TECHNICIAN [address] [place], [place] [address] PCP - General Family Medicine 12/25/20 Transformation Coach Relationship Specialty Start Date End Date Jessica Alma Rosa, SUPERVISOR GRADING.CLASSROOM TECHNOLOGY TECHNICIAN [address] [place], [place] [address] PCP - General Family Medicine 12/25/20 Transformation Coach Relationship Specialty Start Date End Date Jessica Alma Rosa, SUPERVISOR GRADING.CLASSROOM TECHNOLOGY TECHNICIAN [address] [place], [place] [address] PCP - General Family Medicine 12/25/20 Transformation Coach Relationship Specialty Start Date End Date Casey Chang MD [address] [place] [id number] PCP - General 09/30/21 Transformation Coach Relationship Specialty Start Date End Date Casey Chang MD [address] [place] [address] [id number] PCP - General 09/30/21 Transformation Coach Relationship Specialty Start Date End Date Casey Chang MD [address] [place] [address] [phone] PCP - General 09/30/21 Transformation Coach Relationship Specialty Start Date End Date Casey Chang [address] [place], [place] [id number] PCP - General Family Medicine 07/15/22 Transformation Coach Relationship Specialty Start Date End Date Casey Chang MD [address] [place] [address] PCP - General 09/30/21 Transformation Coach Relationship Specialty Start Date End Date Casey Chang MD [address] [facility] [place] [address] PCP - General 09/30/21 Transformation Coach Relationship Specialty Start Date End Date Casey Chang MD [address] [facility] [place] [address] PCP - General 09/30/21 Transformation Coach Relationship Specialty Start Date End Date Casey Chang MD [address] [facility] [place] [address] PCP - General 09/30/21 Transformation Coach Relationship Specialty Start Date End Date Casey Chang MD [address] [facility] [place] [address] PCP - General 09/30/21 Transformation Coach Relationship Specialty Start Date End Date Casey Chang MD [address] [facility] [place] [address] PCP - General 09/30/21 Transformation Coach Relationship Specialty Start Date End Date Casey Chang MD [address] [facility] [place] [address] PCP - General 09/30/21 Transformation Coach Relationship Specialty Start Date End Date Casey Chang MD [address] [facility] [place] [address] PCP - General 09/30/21 Transformation Coach Relationship Specialty Start Date End Date Casey Chang MD [address] [facility] [place] [address] PCP - General 09/30/21 Transformation Coach Relationship Specialty Start Date End Date Casey Chang MD [address] [facility] [place] [address] PCP - General 09/30/21 Transformation Coach Relationship Specialty Start Date End Date Casey Chang MD [address] [facility] [place] [address] PCP - General 09/30/21 Transformation Coach Relationship Specialty Start Date End Date Casey Chang MD [address] [facility] [place] [facility] [place] [address] PCP - General 09/30/21 Transformation Coach Relationship Specialty Start Date End Date Casey Chang MD [address] [facility] [place] [address] PCP - General 09/30/21 Transformation Coach Relationship Specialty Start Date End Date Casey Chang MD [address] [facility] [place] [facility] [place] [address] PCP - General 09/30/21 Transformation Coach Relationship Specialty Start Date End Date Casey Chang MD [address] [facility] [place] [address] PCP - General 09/30/21 Team Status: Active Member Role Status Dates Regina Silver CAD TECHNICIAN, CAD TECHNICIAN-C Family Provider Active Dr. Casey Chang MD Primary Care Provider Active Team Status: Inactive Member Role Status Dates Dr. Casey Chang MD Primary Care Provider Active Dr. Peter Hamilton MD Emergency Provider Active Transformation Coach Relationship Specialty Start Date End Date Casey Chang MD [address] [place] [address] PCP - General 09/30/21 Team Status: Inactive Member Role Status Dates Dr. Casey Chang MD Primary Care Provider Active Dr. Peter Hamilton MD Attending Provider, Emergency Pro vider Active Team Status: Inactive Member Role Status Dates Dr. Casey Chang MD Primary Care Provider Active Dr. Pa Schroeder MD Attending Provider, Referring Pr ovider Active Transformation Coach Relationship Specialty Start Date End Date Casey Chang MD [address] [place] [address] PCP - General 09/30/21 Transformation Coach Relationship Specialty Start Date End Date Casey Chang MD [address] [place] [address] PCP - General 09/30/21 Transformation Coach Relationship Specialty Start Date End Date Casey Chang [address] [place] [address] PCP - General Family Medicine 07/15/22 Transformation Coach Relationship Specialty Start Date End Date Casey Chang [address] [place] [address] PCP - General Family Medicine 07/15/22 Transformation Coach Relationship Specialty Start Date End Date Tucker Stout MD [facility] [address] [place] [address] PCP - General Family Medicine 04/26/23 Transformation Coach Relationship Specialty Start Date End Date Casey Chang [address] [place] [address] PCP - General Family Medicine 07/15/22 Transformation Coach Relationship Specialty Start Date End Date Casey Chang MD [address] [place] [address] PCP - General 09/30/21 Transformation Coach Relationship Specialty Start Date End Date Casey Chang MD [address] [place] [address] PCP - General 09/30/21 Transformation Coach Relationship Specialty Start Date End Date Casey Chang MD [address] [facility] [place] [address] PCP - General 09/30/21 Transformation Coach Relationship Specialty Start Date End Date Casey Chang [address] [facility] [place] [address] PCP - General Family Medicine 07/15/22 Transformation Coach Relationship Specialty Start Date End Date Casey Chang [address] [facility] [place] [address] PCP - General Family Medicine 07/15/22 Transformation Coach Relationship Specialty Start Date End Date Casey Chang [address] [facility] [place] [address] PCP - General Family Medicine 07/15/22 Transformation Coach Relationship Specialty Start Date End Date Casey Chang [address] [facility] [facility] [place] [address] PCP - General Family Medicine 07/15/22 Transformation Coach Relationship Specialty Start Date End Date Casey Chang [address] [facility] [place] [address] PCP - General Family Medicine 07/15/22 Transformation Coach Relationship Specialty Start Date End Date Casey Chang [address] [facility] [place] [address] PCP - General Family Medicine 07/15/22 Transformation Coach Relationship Specialty Start Date End Date Casey Chang [address] [place] [address] PCP - General Family Medicine 07/15/22 Transformation Coach Relationship Specialty Start Date End Date Casey Chang MD [address] [facility] [place] [address] PCP - General 09/30/21 Transformation Coach Relationship Specialty Start Date End Date Casey Chang MD [address] [facility] [place] [address] PCP - General 09/30/21 Transformation Coach Relationship Specialty Start Date End Date Casey Chang [address] [facility] [place] [address] PCP - General Family Medicine 07/15/22 Transformation Coach Relationship Specialty Start Date End Date Casey Chang [address] [facility] [place] [address] PCP - General Family Medicine 07/15/22 Transformation Coach Relationship Specialty Start Date End Date Casye Chang MD [address] [facility] [place] [place] [address] PCP - General 09/30/21 Transformation Coach Relationship Specialty Start Date End Date Casey Chang [address] [facility] [place] [address] PCP - General Family Medicine 07/15/22 Transformation Coach Relationship Specialty Start Date End Date Casey Chang [address] [facility] [place] [address] PCP - General Family Medicine 07/15/22 Transformation Coach Relationship Specialty Start Date End Date Casey Chang [address] [facility] [place] [address] PCP - General Family Medicine 07/15/22 Transformation Coach Relationship Specialty Start Date End Date Casey Chang [address] [facility] [place] [address] PCP - General Family Medicine 07/15/22 Transformation Coach Relationship Specialty Start Date End Date Casey Chang MD [address] [facility] [place] [place] [address] PCP - General 09/30/21 Transformation Coach Relationship Specialty Start Date End Date Casey Chang [address] [facility] [place] [address] PCP - General Family Medicine 07/15/22 Transformation Coach Relationship Specialty Start Date End Date Casey Chang [address] [place] [address] PCP - General Family Medicine 07/15/22 Transformation Coach Relationship Specialty Start Date End Date Casey Chang MD [address] [place] [address] PCP - General 09/30/21 Transformation Coach Relationship Specialty Start Date End Date Casey Chang [address] [place] [address] PCP - General Family Medicine 07/15/22 Transformation Coach Relationship Specialty Start Date End Date Casey Chang [address] [place] [address] PCP - General Family Medicine 07/15/22 Transformation Coach Relationship Specialty Start Date End Date Casey Chang MD [address] [place] [address] PCP - General 09/30/21 Transformation Coach Relationship Specialty Start Date End Date Casey Chang MD [address] [place] [address] PCP - General 09/30/21 Transformation Coach Relationship Specialty Start Date End Date Casey Chang MD [address] [place] [address] PCP - General 09/30/21 Transformation Coach Relationship Specialty Start Date End Date Casey Chang MD [address] [place] [address] PCP - General 09/30/21 Transformation Coach Relationship Specialty Start Date End Date Casey Chang MD [address] [facility] [place] [address] PCP - General 09/30/21 Transformation Coach Relationship Specialty Start Date End Date Casey Chang [address] [facility] [place] [address] PCP - General Family Medicine 07/15/22 Transformation Coach Relationship Specialty Start Date End Date Casey Chang MD [address] [facility] [place] [address] PCP - General 09/30/21 Transformation Coach Relationship Specialty Start Date End Date Casey Chang MD [address] [place] [address] PCP - General 09/30/21 Transformation Coach Relationship Specialty Start Date End Date Casey Chang MD [address] [facility] [place] [address] PCP - General 09/30/21 Transformation Coach Relationship Specialty Start Date End Date Casey Chang MD [address] [place] [address] PCP - General 09/30/21 Transformation Coach Relationship Specialty Start Date End Date Casey Chang MD [address] [facility] [place] [address] PCP - General 09/30/21 Transformation Coach Relationship Specialty Start [place] [address] PCP - General 09/30/21 Transformation Coach Relationship Specialty Start Date [place] [address] PCP - General 09/30/21 Transformation Coach Relationship Specialty Start Date [place] [address] PCP - General 09/30/21 Transformation Coach Relationship Specialty Start Date End Date [facility] [address] PCP - General Family Medicine 04/26/23 Transformation Coach Relationship Specialty Start Date [place] [address] PCP - General 09/30/21 Transformation Coach Relationship Specialty Start Date [place] [address] PCP - General 09/30/21 Transformation Coach Relationship Specialty Start Date [place] [address] PCP - General 09/30/21 Transformation Coach Relationship Specialty Start Date End Date Casey Chang MD [address] [place] [address] PCP - General 09/30/21 Transformation Coach Relationship Specialty Start Date End Date Casey Chang MD [address] [place] [address] PCP - General 09/30/21 Transformation Coach Relationship Specialty Start Date End Date Casey Chang MD [address] [place] [address] PCP - General 09/30/21 Transformation Coach Relationship Specialty Start Date End Date Casey Chang MD [address] [place] [address] PCP - General 09/30/21 Transformation Coach Relationship Specialty Start Date End Date Casey Chang MD [address] [place] [address] PCP - General 09/30/21 Transformation Coach Relationship Specialty Start Date End Date Tucker Stout MD [facility] Jonathan Dumont [address] [address] PCP - General Family Medicine 04/26/23 Transformation Coach Relationship Specialty Start Date End Date Casey Chang MD [address] [place] [id number] PCP - General 09/30/21 Reason for Visit (unrecogniz ed section and content) Reason Comments Covid19 Concern Reason Comments Covid19 Concern Cough Reason Onset Date Comments Med Refill 05/16/2022 Reason Onset Date Comments Diarrhea 06/18/2022 Reason Comments Diarrhea For about 2 weeks Reason Comments Diarrhea Diarrhea, nausea and left lower abdominal pain since 06/06 Reason Onset Date Comments Med Refill 08/18/2022 Reason Comments New Patient Diarrhea Vomiting Gas Abdominal Pain Burning pain- epigas tric Reason Comments Results Follow up CT- liver and kidney Health Maintenance Pt refused- hiv and hep c screening, lung screening, mammogramCovid 5 vaccine- pt states all caught upColonoscopy- pt is sched Mmr vaccine- done as child Reason Comments Follow-up 4 weekHepatic steato sis Reason Comments Med Refill Reason Comments Anxiety declined the [place] 7 h as anxiety and it has not changed Depression Declined PHQ 9 state s has depression and it has not changed Vitamin D Deficiency Hypertension Asthma Medication Check 3 month Health Maintenance Colonoscopy- sched Hep a and b vaccine- will discuss with Dr Ingram vaccine- will go to pharmacy for thisMammogram- done 2 yrs ago and will not have anotherFlu vaccine- agreePt asking if she is due for a pneumo 23 vaccine? Had pcv 20 last yr Reason Onset Date Comments Med Refill 02/26/2023 Reason Onset Date Comments Med Refill 03/15/2023 Reason Comments Nerve Pain Leg Pain Left leg 2.5 wk ago Specialty Diagnoses / Procedures Referred By Priyank lundberg Referred To Contact Physical Therapy Diagnoses Acute right-sided low back pain with right-sided sciatica Procedures OK OFFICE/OUTPATIENT NEW HIGH MDM 60 MINUTES Flakita Garcia, JAVIER - CLASSROOM TECHNOLOGY TECHNICIAN [address] [place] [address] [facility] Pt [facility] [place] [address] Referral ID Status Reason Start Date Expiration Date Visits Requested Visits Authorized [id number] Authorized Eval and Treat 04/26/2023 04/20/2024 30 30 Reason Onset Date Comments Med Refill 05/11/2023 Reason Comments Hypertension Health Maintenance Colonoscopy- agreeHe p a vaccine- refuseHep b vaccine- refuseRsv vaccine- not doneMammogram- refuse Specialty Diagnoses / Procedures Referred By Rosiac t Referred To Contact [facility] Diagnoses Other intervertebral disc degeneration, lumbosacral region Radiculopathy, lumbar region M51.37 Other intervertebral disc degeneration, lumbosacral region M54.16 Radiculopathy, lumbar region Procedures MRI SPINAL CANAL LUMBAR W/O CONTRAST MATERIAL MRI WO NICOLE B [address] Pa Schmitz MD [address] [place] [address] [facility] [address] [place] [address] Referral ID Status Reason Start Date Expiration Date Visits Re quested Visits Authorized [id number] Closed 06/03/2023 08/03/2023 1 1 Reason Comments Hidradenitis Suppurativa Currently on Hu mic with good response. Denies current flares. Reason Onset Date Comments Foot Swelling 07/27/2023 Reason Comments Edema Shortness of Breath Pt thinks CHF other Discuss upcomming christy rgeries Reason Comments Established Patient Reason Comments Schedule Surgery Reason Comments Orders Reason Comments Patient Question Reason Comments Anesthesia Consult Specialty Diagnoses / Procedures Referred By Contac t Referred To Contact Diagnoses Spinal stenosis of lumbar region with neurogenic claudication Radiculopathy, lumbar region Preoperative clearance Procedures REFER TO PACC [facility] - PREOPERATIVE OPTIMIZATION OFFICE/OUTPATIENT [facility] 60 MINUTES Sanchez Gomez PA-C [address] [place] [address] Referral ID Status Reason Start Date Expiration Date V isits Requested Visits Authorized [id number] Closed PCP Requested Referral 08/03/2023 08/02/2024 1 1 Reason Comments Pre-Op Teaching DOS 08/25/2023 Reason Comments Shortness of Breath Edema Follow-up 2 week Specialty Diagnoses / Procedures Referred By Contac t Referred To Contact CT IMAGING Diagnoses Spinal stenosis of lumbar region with neurogenic claudication Procedures CT LUMBAR SPINE WO IVCON CT LUMBAR SPINE W/O CONTRAST MATERIAL Martha Lorenzo MD [address] [place] [address] [place] [address] Referral ID Status Reason Start Date Expiration Date V isits Requested Visits Authorized [id number] Closed Auto-Generate d Referral 08/02/2023 08/31/2024 1 1 Reason Comments Radio Gen RMP concern for abnormal curvature of lumbar spine Specialty Diagnoses / Procedures Referred By Contac t Referred To Contact XR IMAGING Diagnoses Radiculopathy, lumbar region Spinal stenosis of lumbar region with neurogenic claudication Procedures XR SCOLIOSIS PA STAND/LAT 2V RADEX ENTIR THRC LMBR CRV SAC SPI W/SKULL 2/3 VW Martha Lorenzo MD [address] [place] [address] [place] [address] Referral ID Status Reason Start Date Expiration Date V isits Requested Visits Authorized [id number] Closed Auto-Generate d Referral 08/02/2023 08/31/2024 1 1 Reason Comments Preparations For Surgery Specialty Diagnoses / Procedures [facility] Referred To Contact Diagnoses Spinal stenosis of lumbar region with neurogenic claudication Radiculopathy, lumbar region Spinal stenosis of lumbar region with neurogenic claudication [M48.062] Radiculopathy, lumbar region [M54.16] Procedures HANSEN FACETECTOMY & FORAMOTOMY 1 VRT SGM LUMBAR DECOMPRESSION LAMINECTOMY LUMBAR POSTERIOR LEVEL 1 [facility] Or [address] [place] [address] Referral ID Status Reason Start Date Expiration Date Visits Re quested Visits Authorized [id number] 1 1 Reason Comments Surgical Follow Up Reason Comments Post Op Reason Comments Patient Update Reason Onset Date Comments Colon Cancer Screening 07/08/2023 Colonoscopy 07/08/2023 Screening progra m Reason Comments Patient Question Pain Reason Comments Post Op Specialty Diagnoses / Procedures [facility] Referred To Contact Physical Therapy Diagnoses Radiculopathy, lumbar region Procedures OK OFFICE/OUTPATIENT NEW HIGH MDM 60 MINUTES Rajinder Brownlee MD [address] [place] [address] [facility] Pt [address] [place] [address] Referral ID Status Reason Start Date Expiration Date Visits Requested Visits Authorized [id number] Authorized Eval and Treat 10/04/2023 09/28/2024 30 30 Reason Comments Follow Up Reason Onset Date Comments Medication Problem 03/03/2022 Reason Comments Anxiety Health Maintenance Declines mammogramDe clines colonsocopy Reason Comments Depression Anxiety Follow-up 2 week Reason Comments Skin Check Reason Onset Date Comments Med Refill 02/03/2024 Reason Onset Date Comments Loss of Consciousness 03/05/2024 Reason Comments Hidradenitis Suppurativa Pt states that ATB helped HS, but not the rosacea on the face. Clean and clear with salicylic acid. Reason Comments Annual Exam Blood Work Health Maintenance Pt refuse- hiv scree n, colonoscopy, lung cancer screen, mammogram, 7th covid vaccineFlu vaccine- agree Medication Problem Pt has stopped lisin opril due to weight being down 30lbs and bp seems to be good without it Pt is taking baclofen due to muscle spasms in foot and it is not helping- she wonders if she talks to you about this or to the spine surgeon? Reason Onset Date Comments Results 03/23/2024 Reason Onset Date Comments Cough 05/10/2024 Reason Onset Date Comments Knee Pain 06/01/2024 Reason Comments New Patient Right Knee Pain Reason Onset Date Comments Other 07/25/2024 Reason Onset Date Comments Med Refill 08/07/2024 Reason Comments Hidradenitis Suppurativa Stable on Cosen tyx. Patient due for Tspot. Rosacea Specialty Diagnoses / Procedures Referred By Priyank lundberg Referred To Contact Dermatology Diagnoses Hidradenitis suppurativa Procedures Follow Up In Dermatology - Established Patient Kg Nathaly Cope, SUPERVISOR GRADING-CLASSROOM TECHNOLOGY TECHNICIAN [address] [address] Phone: tel: fax: Referral ID Status Reason Start Date Expiration Date V isits Requested Visits Authorized [id number] Pending Review 03/19/2024 03/19/2025 1 1 Reason Comments Follow-up Right Knee Reason Onset Date Comments Med Refill 10/21/2024 Scheduled Active and Recently Administ ered Medications (unrecognized section and content) Medication Order 08/23/2023 08/24/2023 08/25/2023 acetaminophen 1,000 mg tab(s) (TYLENOL) (COMPLETED) 1,000 mg, ORAL, ONCE, 1 dose, On Grace 08/25/23 at 0600, If ordered PRN for pain, patient/guardian may elect to receive this medication for higher pain levels INSTEAD of the opioid, if preferred: Yes, Preprocedure 0603 (Given - Provid er: Elyssa Lugo RN) ceFAZolin 3 g in D5W 100 mL (ANCEF) (COMPLETED) 3 g, INTRAVENOUS, at 200 mL/hr, Administer over 30 Minutes, NATUROPATHIC PHYSICIAN TO OR, 1 dose, First dose on Rgace 08/25/23 at 0600, Neurosurgical Cases PRE-OP ANTIBIOTIC ADMINISTER ONLY IN SURGICAL AREA DO NOT ADMINSTER ON THE FLOOR, Antimicrobial indication: Prophylaxis, Preprocedure 0603 (Sent with Moira ent - Provider: Elyssa Lugo RN)0755 (Given - Provider: Laura Alanis APRN.CHUTE TAPPER) keTORolac 15 mg injection (Toradol) (COMPLETED) 15 mg, INTRAVENOUS, ONCE, 1 dose, On Grace 08/25/23 at 1030, Ketorolac (Toradol) is indicated for the short-term (up to 5 days) management of moderately severe acute pain. Continuation of ketorolac (Toradol) beyond 5 days increases the risk of developing serious adverse events. Please verify the duration of therapy for ketorolac (Toradol)., Pharmacist may modify dose per [facility] dose optimization consult agreement: Yes, If ordered PRN for pain, patient/guardian may elect to receive this medication for higher pain levels INSTEAD of the opioid, if preferred: Yes, Recovery or Phase I (only) 1020 (Given - Provid er: Isidro Noland RN) methocarbamol 1 g injection (ROBAXIN) (COMPLETED) 1 g, INTRAVENOUS, ONCE, 1 dose, On Grace 08/25/23 at 1000, Recovery or Phase I (only) 1001 (Given - Provid er: Isidro Noland RN) Continuous Medication Order 08/23/2023 08/24/2023 08/25/2023 lactated ringers iv infusion 20 mL/hr, INTRAVENOUS, CONTINUOUS, Starting on Grace 08/25/23 at 1000, Until Tue08/26/23 at 0304, Recovery or Phase I (only) 1001 (New Bag/Syring e/Bottle - Provider: Isidro Noland RN)1145 (Rate Verify - Provider: Laura Prabhakar RN) NaCl 0.9% iv infusion (CANCELED) 5-30 mL/hr, INTRAVENOUS, CONTINUOUS, Starting on Grace 08/25/23 at 0600, Until Grace 08/25/23 at 1145, Preprocedure 0604 (New Bag/Syring e/Bottle - Provider: Elyssa Lugo RN)1145 (Due: Infusion Complete) PRN Medication Order 08/23/2023 08/24/2023 08/25/2023 acetaminophen 650 mg tab(s) (TYLENOL) (COMPLETED) 650 mg, ORAL, NEEDED, 1 dose, Starting on Grace 08/25/23 at 0936, Until Discontinued, Mild Pain (1-3) - Enteral, If not given any other Acetaminophen containing product 4 hours prior, If ordered PRN for pain, patient/guardian may elect to receive this medication for higher pain levels INSTEAD of the opioid, if preferred: Yes, Recovery or Phase I (only) 1201 (Given - Provid er: Laura Prabhakar RN) albuterol 2.5 mg /3 mL (0.083 %) 2.5 mg (PROVENTIL) (COMPLETED) 2.5 mg, INHALATION, NEEDED, 1 dose, Starting on Grace 08/25/23 at 0936, Until Discontinued, wheezing/shortness of breath, Recovery or Phase I (only) 0956 (Given - Provid er: Isidro Noland RN) BUPivacaine (PF) 20 mL, BUPivacaine liposome (PF) 20 mL (CANCELED) X (OR/PROCEDURE) PRN, Starting on Grace 08/25/23 at 0828, Until Grace 08/25/23 at 0935, Intraprocedure 0828 (Given - Provid er: Martha Lorenzo MD) diphenhydrAMINE 50 mg injection (BENADRYL) 50 mg, INTRAVENOUS, EVERY 4 HOURS NEEDED, 2 doses, Starting on Grace 08/25/23 at 0936, Until Tue08/26/23 at 0304, itching/rash, Recovery or Phase I (only) fentaNYL 50 mcg/mL 50 mcg injection (SUBLIMAZE) 50 mcg, INTRAVENOUS, EVERY 10 MINUTES NEEDED, 4 doses, Starting on Grace 08/25/23 at 0936, Until Tue08/26/23 at 0304, FIRST LINE THERAPY for pain score 1 or greater, USE FOR MILD PAIN (1-3) ONLY IF PATIENT IS UNABLE TO TOLERATE ORAL THERAPY, Recovery or Phase I (only) 0956 (Given - Provid er: Isidro Noland RN)1005 (Given - Provider: Isidro Noland RN) hydrogen peroxide 3 % (CANCELED) X (OR/PROCEDURE) PRN, Starting on Grace 08/25/23 at 0830, Until Grace 08/25/23 at 0935, Intraprocedure 0830 (Given - Provid er: Martha Lorenzo MD - Comment: diluted with equal amount of sterile pourable NACL) HYDROmorphone 0.2 mg injection (DILAUDID) 0.2 mg, INTRAVENOUS, EVERY 5 MINUTES NEEDED, 10 doses, Starting on Grace 08/25/23 at 0936, Until Tue08/26/23 at 0304, SECOND LINE THERAPY for pain score 1 or greater, USE FOR MILD PAIN (1-3) ONLY IF PATIENT IS UNABLE TO TOLERATE ORAL THERAPY, Recovery or Phase I (only) 1031 (Given - Provid er: Isidro Noland RN) meperidine (PF) 12.5 mg injection (DEMEROL) 12.5 mg, INTRAVENOUS, EVERY 10 MINUTES NEEDED, 2 doses, Starting on Grace 08/25/23 at 0936, Until Tue08/26/23 at 0304, for shivering, May Repeat 12.5 mg in 10 minutes X1 for Continued Shivering, Recovery or Phase I (only) methylPREDNISolone acetate injection (DEPO-Medrol) (CANCELED) X (OR/PROCEDURE) PRN, Starting on Grace 08/25/23 at 0906, Until Grace 08/25/23 at 0935, Intraprocedure 0906 (Given - Provid er: Martha Lorenzo MD - Comment: topical into surgical incision) ondansetron (PF) 4 mg injection (ZOFRAN)(Linked Group 1) 4 mg, INTRAVENOUS, EVERY 6 HOURS NEEDED, Starting on Grace 08/25/23 at 0936, Until Tue08/26/23 at 0304, Nausea/Vomiting - Second Line - Parenteral, EVERY 6 HOURS NEEDED Give IV push over 2 minutes. Use when patient unable to take medications by mouth., Recovery or Phase I (only) ondansetron 4 mg tab(s) (ZOFRAN)(Linked Group 1) 4 mg, ORAL, EVERY 6 HOURS NEEDED, Starting on Grace 08/25/23 at 0936, Until Tue08/26/23 at 0304, Nausea/Vomiting - Second Line - Enteral, EVERY 6 HOURS NEEDED Use when patient able to take medications by mouth., Recovery or Phase I (only) oxyCODONE IR 5 mg tab(s) (ROXICODONE) (COMPLETED) 5 mg, ORAL, NEEDED, 1 dose, Starting on Grace 08/25/23 at 0936, Until Discontinued, Moderate Pain (4-6) - Enteral, Recovery or Phase I (only) 1126 (Given - Provid er: Isidro Noland RN) prochlorperazine 10 mg injection (COMPAZINE) 10 mg, INTRAVENOUS, EVERY 6 HOURS NEEDED, Starting on Grace 08/25/23 at 0936, Until Tue08/26/23 at 0304, Nausea/Vomiting - First Line - Parenteral, EVERY 6 HOURS NEEDED Protect From Light, Recovery or Phase I (only) Linked Groups Order Group 1: ondansetron 4 mg tab(s) (ZOFRAN)Jump to med 4 mg, ORAL, EVERY 6 HOURS NEEDED, Starting on Grace 08/25/23 at 0936, Until Tue08/26/23 at 0304, Nausea/Vomiting - Second Line - Enteral, EVERY 6 HOURS NEEDED Use when patient able to take medications by mouth., Recovery or Phase I (only) Or ondansetron (PF) 4 mg injection (ZOFRAN)Jump to med 4 mg, INTRAVENOUS, EVERY 6 HOURS NEEDED, Starting on Grace 08/25/23 at 0936, Until Tue08/26/23 at 0304, Nausea/Vomiting - Second Line - Parenteral, EVERY 6 HOURS NEEDED Give IV push over 2 minutes. Use when patient unable to take medications by mouth., Recovery or Phase I (only) FOR RECORDS PERTAINING TO PATIENTS WHO ARE OR HAVE BEEN ENROLLED IN A CHEMICAL DEPENDENCY/SUBSTANCEABUSE PROGRAM, SOME INFORMATION MAY BE OMITTED. This clinical summary was aggregated from multiple sources. Caution should be exercised in using it in the provision of clinical care. This summary normalizes information from multiple sources, and as a consequence, information in this document may materially change the coding, format and clinical context of patient data. In addition, data may be omitted in some cases. CLINICAL DECISIONS SHOULD BE BASED ON THE PRIMARY CLINICAL RECORDS. [facility]. provides no warranty or guarantee of the accuracy or completeness of information in this document.
[2024-12-26 19:36] VITALS: BP 130/80; PULSE 79; RESP 16; TEMP 36.6; O2SAT 99
== END 2024-12-26 19:39 | disposition home or self-care (01) ==
PROVIDERS: Emergency Provider Specialist/Technologist Athletic Trainer; PCP Family Medicine; Visit Provider Specialist/Technologist Athletic Trainer
DX: S06.0X0A Concussion without loss of consciousness, initial encounter (principal); Z90.710 Acquired absence of both cervix and uterus; E78.00 Pure hypercholesterolemia, unspecified; I10 Essential (primary) hypertension; R42 Dizziness and giddiness; W01.10XA Fall on same level from slipping, tripping and stumbling with subsequent striking against unspecified object, initial encounter; Z79.899 Other long term (current) drug therapy; K21.9 Gastro-esophageal reflux disease without esophagitis; M10.9 Gout, unspecified; Z90.49 Acquired absence of other specified parts of digestive tract; F17.210 Nicotine dependence, cigarettes, uncomplicated
CPT/HCPCS: 70450; 80048; 81001; 85027; 96360; 99282